=== PATIENT | female | born 1965 | race Caucasian/White ===

== ENCOUNTER 2016-05-16 06:03 | Emergency (ER) | payer OTHER ==
[~2016-05-16] VITALS: Ht 172.7 cm; Wt 85.8 kg
[~2016-05-16 06:03] MED LIST: HYDR25TA4 PO; LOSA1TAB PO
[2016-05-16 06:10] VITALS: TEMP 36.8; O2SAT 92; Ht 172.7 cm; Wt 85.8 kg
[2016-05-16] MEDS ORDERED: CZR50 PO (06:25)
[2016-05-16] MEDS ORDERED: HYDR25TA5 PO (06:25)
[2016-05-16] MEDS ORDERED: IPRA1AER2 PO (06:25)
[2016-05-16] MEDS ORDERED: SODIUM CHLORIDE 0.9% 1000ML 1,000 ML IV STA (06:40)
[2016-05-16] MEDS ORDERED: KETOROLAC TROMETHAMINE 30 MG/ML VIAL IV STA (06:40)
[2016-05-16] MEDS ORDERED: ONDANSETRON INJ 2 MG/ML 2 ML VIAL IV STA (06:40)
[2016-05-16] MEDS ORDERED: PROMETHAZINE HCL INJ 25 MG in SODIUM CHLORIDE 0.9% 50ML 50 ML IV STA (06:40)
--- NOTE | 2016-05-16 06:44 | EMERGENCY ROOM VISIT NOTE ---
History Report prepared by Octavia: Fritz Blackwood Under the Supervision of: Dr. Greer Montiel M.D. First contact with patient: 06:34 Chief Complaint: CHEST PAIN Stated Complaint: CHEST PAIN Nursing Triage Summary: arrived via amb with als. pt states hx of hiatal hernia has been having mid sternal cp fo days. pain worse with palpitation. History of Present Illness The patient is a 51 year old female with a history of hiatal hernia who presents to the Emergency Room with complaints of constant upper abdominal pain for the past week. The patient hasn't been taking anything for pain, and came to the ED this morning because she can no longer take the pain. The pain is rated 8/10 in severity. There are no worsening or relieving factors known to the patient. The patient denies melena or swelling of the lower extremities. The patient is a social drinker, and her last drink was yesterday. Source of History: patient Onset: one week Position: abdomen (upper) Symptom Intensity: 8/10 Timing: constant Modifying Factors (Worsening): other (none) Modifying Factors (Relieving): other (none) Associated Symptoms: No melena Review of Systems See HPI for pertinent positives & negatives. A total of 10 systems reviewed and were otherwise negative. Past Medical & Surgical Medical Problems: (1) Alcohol Abuse-Unspec (2) Anxiety State Nos (3) Asthma, Unspecified (4) Calculus Of Ureter (5) Diverticulosis Colon (W/O Ment Of Hemorrhage) (6) Hypothyroidism Nos (7) Lumbago (8) Migraine Unspecified W/O Intract Mgrn W/O Status Migrainosus Family History No significant family history Social History Smoking Status: Current Every Day Smoker Marital Status: single Occupation Status: employed Current/Historical Medications Scheduled Famotidine (Pepcid), 20 MG PO DAILY Hydrochlorothiazide (Hydrochlorothiazide), 25 MG PO DAILY Ipratropium-Albuterol (Combivent Respimat), 1 PUFF PO QID Losartan Potassium (Losartan Potassium), 50 MG PO DAILY Scheduled PRN Chlordiazepoxide (Librium), 25 MG PO TID PRN for anxiety Ondansetron Hcl (Zofran), 4 MG PO Q8H PRN for Nausea Allergies Coded Allergies: Penicillins (Verified Allergy, Intermediate, RASH/HIVES, 05/16/16) Sulfa Drugs (Verified Allergy, Intermediate, HIVES, 05/16/16) Codeine (Verified Allergy, Unknown, 05/16/16) Indomethacin (Verified Allergy, Unknown, 05/16/16) Iodine (Verified Allergy, Unknown, 05/16/16) [place] (Verified Allergy, Unknown, 05/16/16) Physical Exam Vital Signs Date Time Temp Pulse Resp B/P Pulse Ox O2 Delivery O2 Flow Rate FiO2 05/16/16 12:29 96 18 101/63 94 Room Air 05/16/16 10:55 100 18 123/77 94 Room Air 05/16/16 09:09 91 05/16/16 09:07 93 18 115/73 95 Room Air 05/16/16 07:09 102 18 125/83 94 Room Air 05/16/16 06:13 97 05/16/16 06:13 97 05/16/16 06:10 92 Room Air 05/16/16 06:10 36.8 95 22 109/77 92 Room Air Physical Exam CONSTITUTIONAL: Moderate painful distress. HEENT: No icterus, moist mucous membranes NECK: No meningismus, trachea is midline. CARDIOVASCULAR: Regular rate, normal perfusion RESPIRATORY: Unlabored breathing. Clear to auscultation. GASTROINTESTINAL: Moderate diffuse upper abdominal tenderness. GENITOURINARY: No flank tenderness MUSCULOSKELETAL: Full range of motion NEUROLOGIC: No acute gross focal deficits. PSYCHIATRIC: Normal affect SKIN: Normal for ethnicity. Medical Decision & Procedures ER Provider Diagnostic Interpretation: X-ray results as stated below per my interpretation and radiologist interpretation. Other radiology results as stated below per my review and radiologist interpretation. CHEST ONE VIEW PORTABLE CLINICAL HISTORY: epigastric pain COMPARISON STUDY: 06/19/2014 FINDINGS: The patient is hyperinflated. There is scattered calcified granulomas present. The heart is normal in size. There is no failure. There is no focal pulmonary consolidation. No pleural effusions are visualized.[ There is no free intraperitoneal air visualized. IMPRESSION: No active disease in the chest. Electronically signed by: Ramon Dominique M.D. 05/16/2016 7:06 AM Dictated Date/Time: 05/16/2016 7:05 AM BILIARY ULTRASOUND CLINICAL HISTORY: Epigastric pain and COMPARISON STUDY: 06/07/2015 FINDINGS: The liver is of increased echogenicity, nonspecific finding most often seen in hepatic steatosis. The common bile duct is dilated measuring 1 cm. The pancreas appears normal as visualized however the distal body and tail were poorly demonstrated. The pancreatic duct measures 3 mm. The gallbladder is surgically absent. There is no right-sided hydronephrosis. IMPRESSION: 1. Increased hepatic echogenicity, consistent with hepatic steatosis 2. Surgically absent gallbladder 3. Mild common bile duct dilatation (1 cm). Electronically signed by: Ramon Dominique M.D. 05/16/2016 7:43 AM Dictated Date/Time: 05/16/2016 7:41 AM ABDOMEN AND PELVIS CT WITH IV AND ORAL CONTRAST CT DOSE: 838.16 mGy.cm HISTORY: Epigastric pain. TECHNIQUE: Multiaxial CT images of the abdomen and pelvis were performed following the use of intravenous and oral contrast. COMPARISON STUDY: Abdomen and pelvis CT 04/12/2015. FINDINGS: Multiple punctate calcified granuloma seen within the lung bases. No pneumoperitoneum. No pneumatosis. No suspicious lytic or blastic osseous lesions. Severe hepatic steatosis. Stable 1.6 cm hyperdense lesion within the right hepatic lobe. Cholecystectomy. The common bile duct measures 9 mm in diameter. This is likely due to the patient's post sternotomy state. Questionable minimal fat stranding adjacent to the pancreatic head. Portal and splenic veins are patent. The spleen, adrenal glands, and kidneys are unremarkable. No retroperitoneal lymphadenopathy. No pelvic free fluid. The uterus is surgically absent. The bladder is unremarkable. Suggestion of a urethral diverticulum. No bowel obstruction. Submucosal fat deposition seen within the colon remains unchanged. A few colonic diverticula. Question mild thickening of the descending colon and sigmoid colon which is likely due to underdistention. This is similar to the prior study. IMPRESSION: 1. There may be minimal fat stranding at the pancreatic head. Recommend correlation with pancreatic enzymes to exclude a developing acute pancreatitis. 2. Severe hepatic steatosis, unchanged. 3. Question mild thickening of the sigmoid colon remains unchanged. Therefore, this may be due to underdistention. There is chronic submucosal fat deposition within the colon. 4. 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 5. No change in 1.6 cm hyperdense lesion within the right hepatic lobe. Electronically signed by: Hernandez Streeter M.D. 05/16/2016 10:03 AM Dictated Date/Time: 05/16/2016 9:46 AM Laboratory Results 05/16/16 05:43 Red Blood Count 4.25, Mean Corpuscular Volume 108.7, Mean Corpuscular Hemoglobin 39.3, Mean Corpuscular Hemoglobin Concent 36.1, Mean Platelet Volume 10.0, Neutrophils (%) (Auto) 42.3, Lymphocytes (%) (Auto) 41.3, Monocytes (%) ( Auto) 12.8, Eosinophils (%) (Auto) 1.6, Basophils (%) (Auto) 1.6, Neutrophils # (Auto) 2.11, Lymphocytes # (Auto) 2.06, Monocytes # (Auto) 0.64, Eosinophils # ( Auto) 0.08, Basophils # (Auto) 0.08 Test 05/16/16 05:43 05/16/16 06:52 05/16/16 08:05 White Blood Count 4.99 K/uL (4.8-10.8) Red Blood Count 4.25 M/uL (4.2-5.4) Hemoglobin 16.7 g/dL (12.0-16.0) Hematocrit 46.2 % (37-47) Mean Corpuscular Volume 108.7 fL (80-100) Mean Corpuscular Hemoglobin 39.3 pg (25-34) Mean Corpuscular Hemoglobin Concent 36.1 g/dl (32-36) Platelet Count 210 K/uL (130-400) Mean Platelet Volume 10.0 fL (7.4-10.4) Neutrophils (%) (Auto) 42.3 % Lymphocytes (%) (Auto) 41.3 % Monocytes (%) (Auto) 12.8 % Eosinophils (%) (Auto) 1.6 % Basophils (%) (Auto) 1.6 % Neutrophils # (Auto) 2.11 K/uL (1.4-6.5) Lymphocytes # (Auto) 2.06 K/uL (1.2-3.4) Monocytes # (Auto) 0.64 K/uL (0.11-0.59) Eosinophils # (Auto) 0.08 K/uL (0-0.5) Basophils # (Auto) 0.08 K/uL (0-0.2) RDW Standard Deviation 52.2 fL (36.4-46.3) RDW Coefficient of Variation 13.3 % (11.5-14.5) Immature Granulocyte % (Auto) 0.4 % Immature Granulocyte # (Auto) 0.02 K/uL (0.00-0.02) Prothrombin Time 10.1 SECONDS (9.0-12.0) Prothromb Time International Ratio 0.9 (0.9-1.1) Activated Partial Thromboplast Time 24.9 SECONDS (21.0-31.0) Partial Thromboplastin Ratio 1.0 Total Bilirubin 0.7 mg/dl (0.2-1) Direct Bilirubin 0.3 mg/dl (0-0.2) Aspartate Amino Transf (AST/SGOT) 328 U/L (15-37) Alanine Aminotransferase (ALT/SGPT) 163 U/L (12-78) Alkaline Phosphatase 113 U/L (45-117) Troponin I < 0.015 ng/ml (0-0.045) Total Protein 7.6 gm/dl (6.4-8.2) Albumin 4.2 gm/dl (3.4-5.0) Lipase 458 U/L (73-393) Ethyl Alcohol mg/dL 285.0 mg/dl (0-3) Urine Color DK YELLOW Urine Appearance CLEAR (CLEAR) Urine pH 5.5 (4.5-7.5) Urine Specific [place] 1.017 (1.000-1.030) Urine Protein TRACE (NEG) Urine Glucose (UA) NEG (NEG) Urine Ketones 1+ (NEG) Urine Occult Blood TRACE (NEG) Urine Nitrite NEG (NEG) Urine Bilirubin 1+ (NEG) Urine Urobilinogen NEG (NEG) Urine Leukocyte Esterase NEG (NEG) Urine WBC (Auto) 1-5 /hpf (0-5) Urine RBC (Auto) 0-4 /hpf (0-4) Urine Hyaline Casts (Auto) 5-10 /lpf (0-5) Urine Epithelial Cells (Auto) >30 /lpf (0-5) Urine Bacteria (Auto) NEG (NEG) Urine Opiates Screen POS (NEG) Urine Methadone, Qualitative NEG (NEG) Urine Barbiturates NEG (NEG) Urine Phencyclidine (PCP) Level NEG (NEG) Ur Amphetamine/Methamphetamine NEG (NEG) MDMA (Ecstasy) Screen NEG (NEG) Urine Benzodiazepines Screen NEG (NEG) Urine Cocaine Metabolite NEG (NEG) Urine Marijuana (THC) NEG (NEG) Labs reviewed by ED physician. Medications Administered Medications (Trade) Dose Ordered Sig/Razia Route Start Time Stop Time Status Last Admin Dose Admin Ondansetron HCl (Zofran Inj) 4 mg NOW STAT IV 05/16/16 06:40 05/16/16 06:44 DC 05/16/16 06:57 4 MG Ketorolac Tromethamine 15 mg 15 mg NOW STAT IV 05/16/16 06:40 05/16/16 06:45 DC 05/16/16 06:57 15 MG Sodium Chloride (Nss 1000ml) 1,000 ml @ 0 mls/hr Q0M STAT IV 05/16/16 06:40 05/16/16 06:45 DC 05/16/16 06:57 0 MLS/HR Morphine Sulfate 4 mg 4 mg ONE PRN IV 05/16/16 06:45 05/30/16 06:44 05/16/16 06:57 4 MG Promethazine HCl/ Sodium Chloride (Phenergan Inj/ Nss 50ml) 51 ml @ 204 mls/hr NOW STAT IV 05/16/16 06:40 05/16/16 06:54 DC 05/16/16 07:05 204 MLS/HR Diphenhydramine HCl (Benadryl Inj) 25 mg NOW STAT IV 05/16/16 09:11 05/16/16 09:12 DC 05/16/16 09:18 25 MG Prochlorperazine Edisylate (Compazine Inj) 10 mg NOW STAT IV 05/16/16 09:11 05/16/16 09:12 DC 05/16/16 09:18 10 MG ECG Indication: abdominal pain Rate (beats per minute): 98 Rhythm: sinus rhythm Findings: nonspecific-ST abn, no ectopy, other (normal axis) ED Course 0637: Past medical records reviewed. The patient was evaluated in room B12b. A complete history and physical examination was performed. 0640: NSS 1000 ml wide open, Toradol 15 mg IV, Zofran 4 mg IV. 0645: Morphine Sulfate 4 mg IV. 0911: Compazine 10 mg IV, Benadryl 25 mg IV. 1245: Upon reexamination the patient is sober enough for discharge. I discussed results and treatment plan with the patient. She verbalizes agreement and understanding. The patient is ready for discharge. Medical Decision Differential diagnosis: Pancreatitis, gallbladder disease, hiatal hernia. 51-year-old presents into the emergency department with several days of worsening epigastric discomfort for which she had been drinking alcohol. She was noted to have an alcohol level of 280 with mild to moderate epigastric discomfort and mildly elevated lipase. Mother arrives take patient home at 1 PM. Patient and mother clearly understands patient must stop drinking alcohol and avoid fatty foods for the next few days. She was provided benzodiazepine to take as needed Dr. silver as well as Pepcid and Zofran. She understands to follow-up with her primary doctor return for any worsening or worrisome symptoms. Mother "he understands patient is not medically clear until roughly 6 PM and is not to drive a motor vehicle or operate anything that may be dangerous. Patient declined case management her psychiatric facilitation of any rehabilitation. Patient mother had no further concerns prior to discharge. Impression Primary Impression: Alcohol intoxication Additional Impression: Pancreatitis Scribe Attestation The scribe's documentation has been prepared under my direction and personally reviewed by me in its entirety. I confirm that the note above accurately reflects all work, treatment, procedures, and medical decision making performed by me. Departure Information Dispostion Home / Self-Care Prescriptions Ondansetron Hcl (ZOFRAN) 4 Mg Tab 4 MG PO Q8H Y for Nausea, #20 TAB Prov: Greer Montiel MD 05/16/16 Chlordiazepoxide (Librium) 25 Mg Cap 25 MG PO TID Y for anxiety, #20 CAP Prov: Greer Montiel MD 05/16/16 Famotidine (PEPCID) 20 Mg Tab 20 MG PO DAILY, #30 TAB Prov: Greer Montiel MD 05/16/16 Referrals Rambo Camacho M.D. (PCP) Forms HOME CARE DOCUMENTATION FORM, IMPORTANT VISIT INFORMATION Patient Instructions Alcohol Abuse - [facility], [facility], Pancreatitis Acute Dc Problem Qualifiers
[2016-05-16] MEDS ORDERED: MoRPHine SULFATE 4 MG/ML 1 ML CARP\\VIAL IV PRN ×2 (06:45)
[2016-05-16 06:59] LABS: BASO % 1.6 %; BASO ABS # 0.08 K/uL (0-0.2); COMPLETE YES; EOS % 1.6 %; HEMATOCRIT 46.2 % (37-47); IG% 0.4 %; LYMPH % 41.3 %; LYMPH ABS # 2.06 K/uL (1.2-3.4); MEAN CELL VOLUME 108.7 fL (80-100); MEAN CORPUSCULAR HEMOGLOBIN 39.3 pg (25-34); MEAN CORPUSCULAR HGB CONC 36.1 g/dl (32-36); MONO % 12.8 %; NEUT % 42.3 %; PLATELET COUNT 210 K/uL (130-400); RED BLOOD COUNT 4.25 M/uL (4.2-5.4); WHITE BLOOD COUNT 4.99 K/uL (4.8-10.8)
[2016-05-16 07:06] LABS: INR 0.9 (0.9-1.1); PROTHROMBIN TIME (PATIENT) 10.1 SECONDS (9.0-12.0)
--- NOTE | 2016-05-16 07:08 | DIAGNOSTIC IMAGING REPORT ---
CHEST ONE VIEW PORTABLE CLINICAL HISTORY: epigastric pain COMPARISON STUDY: 06/19/2014 FINDINGS: The patient is hyperinflated. There is scattered calcified granulomas present. The heart is normal in size. There is no failure. There is no focal pulmonary consolidation. No pleural effusions are visualized.[ There is no free intraperitoneal air visualized. IMPRESSION: No active disease in the chest. Electronically signed by: Ramon Dominique M.D. 05/16/2016 7:06 AM Dictated Date/Time: 05/16/2016 7:05 AM
[2016-05-16 07:10] LABS: ALKALINE PHOSPHATASE 113 U/L (45-117); ALT/SGPT 163 U/L (12-78); AST/SGOT 328 U/L (15-37)
--- NOTE | 2016-05-16 07:45 | DIAGNOSTIC IMAGING REPORT ---
BILIARY ULTRASOUND CLINICAL HISTORY: Epigastric pain and COMPARISON STUDY: 06/07/2015 FINDINGS: The liver is of increased echogenicity, nonspecific finding most often seen in hepatic steatosis. The common bile duct is dilated measuring 1 cm. The pancreas appears normal as visualized however the distal body and tail were poorly demonstrated. The pancreatic duct measures 3 mm. The gallbladder is surgically absent. There is no right-sided hydronephrosis. IMPRESSION: 1. Increased hepatic echogenicity, consistent with hepatic steatosis 2. Surgically absent gallbladder 3. Mild common bile duct dilatation (1 cm). Electronically signed by: Ramon Dominique M.D. 05/16/2016 7:43 AM Dictated Date/Time: 05/16/2016 7:41 AM
[2016-05-16 08:36] LABS: URINE APPEARANCE CLEAR (CLEAR); URINE COLOR DK YELLOW; URINE EPITHELIAL CELL AUTO >30 /lpf (0-5); URINE NITRITE NEG (NEG); URINE PH 5.5 (4.5-7.5); URINE SPECIFIC GRAVITY 1.017 (1.000-1.030); UROBILINOGEN NEG (NEG); ZZUR CULT IF INDIC CLEAN CATCH NO
[2016-05-16 08:38] LABS: MANUAL MICROSCOPIC REQUIRED? NO; REVIEW REQ? NO; URINE BILIRUBIN 1+ (NEG)
[2016-05-16 09:03] LABS: BENZODIAZEPINE, URINE NEG (NEG); COCAINE,URINE NEG (NEG); PHENCYCLIDINE, URINE NEG (NEG)
[2016-05-16] MEDS ORDERED: PROCHLORPERAZINE 5 MG/ML 2 ML VIAL IV STA (09:11)
[2016-05-16] MEDS ORDERED: DiphenhydrAMINE HCL 50 MG/ML VIAL IV STA (09:11)
--- NOTE | 2016-05-16 10:05 | DIAGNOSTIC IMAGING REPORT ---
ABDOMEN AND PELVIS CT WITH IV AND ORAL CONTRAST CT DOSE: 838.16 mGy.cm HISTORY: Epigastric pain. TECHNIQUE: Multiaxial CT images of the abdomen and pelvis were performed following the use of intravenous and oral contrast. COMPARISON STUDY: Abdomen and pelvis CT 04/12/2015. FINDINGS: Multiple punctate calcified granuloma seen within the lung bases. No pneumoperitoneum. No pneumatosis. No suspicious lytic or blastic osseous lesions. Severe hepatic steatosis. Stable 1.6 cm hyperdense lesion within the right hepatic lobe. Cholecystectomy. The common bile duct measures 9 mm in diameter. This is likely due to the patient's post sternotomy state. Questionable minimal fat stranding adjacent to the pancreatic head. Portal and splenic veins are patent. The spleen, adrenal glands, and kidneys are unremarkable. No retroperitoneal lymphadenopathy. No pelvic free fluid. The uterus is surgically absent. The bladder is unremarkable. Suggestion of a urethral diverticulum. No bowel obstruction. Submucosal fat deposition seen within the colon remains unchanged. A few colonic diverticula. Question mild thickening of the descending colon and sigmoid colon which is likely due to underdistention. This is similar to the prior study. IMPRESSION: 1. There may be minimal fat stranding at the pancreatic head. Recommend correlation with pancreatic enzymes to exclude a developing acute pancreatitis. 2. Severe hepatic steatosis, unchanged. 3. Question mild thickening of the sigmoid colon remains unchanged. Therefore, this may be due to underdistention. There is chronic submucosal fat deposition within the colon. 4. 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 5. No change in 1.6 cm hyperdense lesion within the right hepatic lobe. Electronically signed by: Hernandez Streeter M.D. 05/16/2016 10:03 AM Dictated Date/Time: 05/16/2016 9:46 AM
[2016-05-16 12:29] VITALS: BP 101/63; PULSE 96; O2SAT 94
[2016-05-16] MEDS ORDERED: FAMO20TA9 PO (12:45)
[2016-05-16] MEDS ORDERED: CHLO25CA10 PO (12:46)
[2016-05-16] MEDS ORDERED: ONDA4TAB46 PO (12:47)
[2016-05-18 15:37] LABS: COD UR NEGATIVE NG/ML (CUTOFF=50); HYDROCOD UR NEGATIVE NG/ML (CUTOFF=50); HYDROMOR UR NEGATIVE NG/ML (CUTOFF=50); MORPHINE UR 12900 NG/ML (CUTOFF=50); NORHYDROCODONE CONF UR NEGATIVE NG/ML (CUTOFF=50); OXYMORPH UR NEGATIVE NG/ML (CUTOFF=50)
[2016-06-29] MEDS ORDERED: OXYC1TAB3 PO (09:07)
[2016-06-29] MEDS ORDERED: EFFSR75 PO (09:09)
[2016-10-13] MEDS ORDERED: FLV1 PO (11:47)
[2016-10-13] MEDS ORDERED: CHLO25CA10 PO (11:47)
[2016-10-13] MEDS ORDERED: THM100 PO (11:47)
[2016-10-13] MEDS ORDERED: VANC1CAP19 PO (11:47)
[2016-10-13] MEDS ORDERED: ZNCS220 PO (11:47)
[2016-10-13] MEDS ORDERED: MULT-589 PO (11:47)
[2016-10-13] MEDS ORDERED: ULT50X PO (11:47)
[2016-10-13] MEDS ORDERED: RANI150T3 PO (11:47)
[2016-10-13] MEDS ORDERED: LPR25 PO (11:47)
== END 2016-05-16 12:55 | disposition home or self-care (01) ==
LOC: EDBD 06:03 → C.EDB 06:04
DX: F10.129 Alcohol abuse with intoxication, unspecified (principal); Y90.8 Blood alcohol level of 240 mg/100 ml or more; K86.1 Other chronic pancreatitis; E03.9 Hypothyroidism, unspecified; J45.909 Unspecified asthma, uncomplicated; F41.9 Anxiety disorder, unspecified; K57.31 Diverticulosis of large intestine without perforation or abscess with bleeding; Z87.442 Personal history of urinary calculi; F17.200 Nicotine dependence, unspecified, uncomplicated; Z79.899 Other long term (current) drug therapy; Z88.0 Allergy status to penicillin; Z88.2 Allergy status to sulfonamides; Z88.5 Allergy status to narcotic agent; Z88.8 Allergy status to other drugs, medicaments and biological substances; Z91.018 Allergy to other foods; Z91.041 Radiographic dye allergy status

== ENCOUNTER → 2016-05-17 | Outpatient (CLI) | payer OTHER ==
[~2016-05-17] MED LIST changes: +ATV/1 PO; +CHLO25CA10 PO; +CRFUDL PO; +CZR50 PO; +EFFSR75 PO; +FAMO20TA9 PO; +FLV1 PO; -HYDR25TA4 PO; +HYDR25TA5 PO; +IPRA1AER2 PO; -LOSA1TAB PO; +LPR25 PO; +METR-163 PO; +MULT-589 PO; +ONDA4TAB46 PO; +ONDA4TAB65 PO; +OXYC1TAB3 PO; +PRT40 PO; +RANI150T3 PO; +THM100 PO; +ULT50X PO; +VANC1CAP19 PO; +ZNCS220 PO
--- NOTE | 2016-05-17 14:02 | DIAGNOSTIC IMAGING REPORT ---
CHEST 2 VIEWS ROUTINE HISTORY: WHEEZING COMPARISON: Chest 05/16/2016. FINDINGS: The lungs remain hyperexpanded. Multiple calcified granulomas are unchanged. No new focal lung consolidations to suggest pneumonia. No evidence for pulmonary edema. No pleural effusions. No pneumothorax. The heart is normal in size. IMPRESSION: No significant change compared to the prior study. No acute process. Electronically signed by: Hernandez Streeter M.D. 05/17/2016 2:00 PM Dictated Date/Time: 05/17/2016 1:59 PM
== END | disposition home or self-care (01) ==
LOC: C.RAD1850 13:50
PROVIDERS: ATTEND Family Medicine
DX: R06.2 Wheezing (principal); R53.1 Weakness; Z72.0 Tobacco use

== ENCOUNTER 2016-06-21 15:09 | Inpatient (IN) | payer OTHER ==
[~2016-06-21] VITALS: Ht 172.7 cm; Wt 83.9 kg
[~2016-06-21 15:09] MED LIST changes: -ATV/1 PO; -CRFUDL PO; -EFFSR75 PO; -FAMO20TA9 PO; -FLV1 PO; -LPR25 PO; -METR-163 PO; -MULT-589 PO; -ONDA4TAB65 PO; -OXYC1TAB3 PO; -PRT40 PO; -RANI150T3 PO; -THM100 PO; -ULT50X PO; -VANC1CAP19 PO; -ZNCS220 PO
[2016-06-21] MEDS ORDERED: SODIUM CHLORIDE 0.9% 1000ML 1,000 ML IV STA ×2 (16:52→19:43)
[2016-06-21] MEDS ORDERED: ONDANSETRON 8 MG/54 ML D5W IV STA (17:08)
[2016-06-21] MEDS ORDERED: DICYCLOMINE HCL 10 MG/ML 2 ML AMP IM ONE (17:15)
[2016-06-21] MEDS ORDERED: FAMOTIDINE 20MG/102 ML D5W IV STA (17:15)
[2016-06-21 17:20] LABS: BASO % 0.9 %; BASO ABS # 0.05 K/uL (0-0.2); COMPLETE YES; EOS % 0.9 %; HEMATOCRIT 40.5 % (37-47); IG% 1.8 %; LYMPH % 22.6 %; LYMPH ABS # 1.24 K/uL (1.2-3.4); MEAN CORPUSCULAR HEMOGLOBIN 39.5 pg (25-34); MEAN CORPUSCULAR HGB CONC 36.5 g/dl (32-36); MEAN PLATELET VOLUME 10.3 fL (7.4-10.4); MONO % 19.7 %; NEUT % 54.1 %; PLATELET COUNT 180 K/uL (130-400); RED BLOOD COUNT 3.75 M/uL (4.2-5.4); WHITE BLOOD COUNT 5.48 K/uL (4.8-10.8)
[2016-06-21 17:39] LABS: ALT/SGPT 78 U/L (12-78); AMYLASE 62 U/L (25-115); BLOOD UREA NITROGEN 10 mg/dl (7-18); BUN/CREATININE RATIO 11.8 (10-20); CALCIUM 8.9 mg/dl (8.5-10.1); CARBON DIOXIDE 29 mmol/L (21-32); CHLORIDE 95 mmol/L (98-107); CREATININE 0.82 mg/dl (0.60-1.20); GLUCOSE 124 mg/dl (70-99); POTASSIUM 2.8 mmol/L (3.5-5.1); SODIUM 136 mmol/L (136-145)
[2016-06-21 17:44] LABS: ALB/GLOB RATIO 1.1 (0.9-2); ALKALINE PHOSPHATASE 140 U/L (45-117); AST/SGOT 83 U/L (15-37)
[2016-06-21] MEDS ORDERED: HYDROmorphone INJ 0.5 MG/0.5 ML SYR IV STA (17:58)
--- NOTE | 2016-06-21 19:09 | DIAGNOSTIC IMAGING REPORT ---
CT OF THE ABDOMEN AND PELVIS WITHOUT CONTRAST CLINICAL HISTORY: Upper abdominal pain. History of pancreatitis. COMPARISON STUDY: CT of the abdomen and pelvis May 16, 2016. TECHNIQUE: Axial images of the abdomen and pelvis were obtained without IV contrast. Images were reviewed in the axial, sagittal, and coronal planes. FINDINGS: Visualized portions of the lung lower lungs demonstrate stable calcified and noncalcified pulmonary nodules. There is fatty infiltration of the liver. A 2 cm hypodense right hepatic lobe lesion is unchanged since prior exams. The likely reflects a hemangioma. Stability indicates a benign lesion. Unenhanced images of the spleen, adrenal glands and kidneys are unremarkable. There is no hydronephrosis or hydroureter. There may be mild peripancreatic infiltration. There is mild dilatation of the common bile duct. This is unchanged and may be due to cholecystectomy. There is no evidence for a bowel obstruction. No free air, pneumatosis or portal venous gas is present. There is sigmoid diverticulosis without evidence for acute diverticulitis. Skeletal structures are unremarkable. IMPRESSION: 1. Suspected minimal peripancreatic infiltration. This suggests acute pancreatitis. 2. Fatty liver. 3. Mild biliary ductal dilatation. This is likely related to prior cholecystectomy but could be correlated with liver function tests. Electronically signed by: Vick Mcginnis M.D. 06/21/2016 7:07 PM Dictated Date/Time: 06/21/2016 6:56 PM
[2016-06-21] MEDS ORDERED: HYDROmorphone INJ 1 MG/ML SYR IV PRN (19:45)
[2016-06-21 19:51] LABS: URINE APPEARANCE CLOUDY (CLEAR); URINE BILIRUBIN NEG (NEG); URINE COLOR DK YELLOW; URINE EPITHELIAL CELL AUTO >30 /lpf (0-5); URINE NITRITE NEG (NEG); URINE PH 6.5 (4.5-7.5); URINE SPECIFIC GRAVITY 1.007 (1.000-1.030); UROBILINOGEN NEG (NEG); ZZUR CULT IF INDIC CLEAN CATCH YES
[2016-06-21 19:54] LABS: MANUAL MICROSCOPIC REQUIRED? NO; REVIEW REQ? YES
--- NOTE | 2016-06-21 20:32 | History and Physical ---
History & Physical Date & Time of Service: Jun 21, 2016 at 20:26 Chief Complaint: Referred By Doctor's Office Primary Care Physician: Jeb Burgess MD History of Present Illness Source: patient 51 y/o F w/Hx HTN, previous episode of ETOH-related pancreatitis. Presents with abdominal pain, N/V. Denies fevers CP. She has chronic diarrhea related to IBS but this has not worsened. Pain, N/V began 1 week prior and has become gradually more severe. The pt claims she has not had solid food in [address] reveals pancreatic inflammation. Labs are notable for an elevated lipase and hypokalemia. The pt state she has not had ETOH since a diagnosis of pancreatitis one month earlier and has not suffered withdrawal. Past Medical/Surgical History 1) ETOH abuse 2) ETOH pancreatitis 3) HTN 4) Tobacco abuse 5) Cholecystectomy Family History No significant family history Father COPD Social History Smokes 1/2 (recently down from 1-2 packs) - states that she quit drinking one month prior but does have a history of excessive consumption Smoking Status: Current Every Day Smoker Marital Status: single Housing status: other Occupational Status: employed Immunizations History of Influenza Vaccine: No History of Tetanus Vaccine?: Yes History of Pneumococcal: No History of Hepatitis B Vaccine: No Hepatitis Immunization Date: Feb 06, 1990 Multi-Drug Resistant Organisms History of MDRO: No Allergies Coded Allergies: Penicillins (Verified Allergy, Intermediate, RASH/HIVES, 06/21/16) Sulfa Drugs (Verified Allergy, Intermediate, HIVES, 06/21/16) Codeine (Verified Allergy, Unknown, 06/21/16) Indomethacin (Verified Allergy, Unknown, 06/21/16) Iodine (Verified Allergy, Unknown, 06/21/16) [place] (Verified Allergy, Unknown, 06/21/16) Home Medications Scheduled Hydrochlorothiazide (Hydrochlorothiazide), 25 MG PO DAILY Ipratropium-Albuterol (Combivent Respimat), 1 PUFF PO QID Losartan Potassium (Losartan Potassium), 50 MG PO DAILY Scheduled PRN Chlordiazepoxide (Librium), 25 MG PO TID PRN for anxiety Ondansetron Hcl (Zofran), 4 MG PO Q8H PRN for Nausea Review of Systems Constitutional: No chills, No fever, No sweats Eyes: No eye pain, No worsening of vision ENT: No hearing loss, No nasal symptoms, No unusual epistaxis Respiratory: No cough, No sputum, No wheezing Cardiovascular: No PND, No chest pain, No orthopnea Abdomen: + diarrhea (chronic), + nausea, + pain, + vomiting Musculoskeletal: No joint pain, No muscle pain Genitourinary - Female: No dysuria, No urinary frequency, No urinary urgency Neurologic: No memory loss, No paralysis, No weakness Psychiatric: No depression symptoms Endocrine: No fatigue Hematologic / Lymphatic: No abnormal bleeding/bruising Integumentary: No rash Allergic / Immunologic: No environmental allergies Physical Exam Vital Signs Date Time Temp Pulse Resp B/P Pulse Ox O2 Delivery O2 Flow Rate FiO2 06/21/16 19:36 85 20 127/86 98 Room Air 06/21/16 18:50 88 20 138/81 97 Room Air 06/21/16 17:20 92 18 137/85 98 Room Air 06/21/16 15:22 37.4 108 18 137/97 98 Room Air General Appearance: WD/WN, no apparent distress Head: normocephalic, + pertinent finding (Bruising under R eye) Eyes: normal inspection, PERRL, EOMI ENT: normal ENT inspection, pharynx normal Neck: supple, no JVD Respiratory/Chest: chest non-tender, lungs clear, normal breath sounds, no respiratory distress, no accessory muscle use Cardiovascular: regular rate, rhythm, no edema, no gallop Abdomen/GI: normal bowel sounds, soft, + tenderness (mild diffuse) Back: normal inspection, no CVA tenderness, no muscle spasm, normal range of motion Extremities/Musculoskelatal: normal inspection, no calf tenderness, normal capillary refill, no pedal edema, normal range of motion, + pertinent finding ( Bruising on R arm and L leg) Neurologic/Psych: gypsum calciner II-XII nml as tested, no motor/sensory deficits, alert, normal mood/affect, normal reflexes, + abnormal cerebellar tests Skin: normal color, warm/dry, no rash, + pertinent finding (Bruising as noted above) Diagnostics Laboratory Results Results Past 24 Hours Test 06/21/16 17:04 06/21/16 19:34 Range/Units White Blood Count 5.48 4.8-10.8 K/uL Red Blood Count 3.75 4.2-5.4 M/uL Hemoglobin 14.8 12.0-16.0 g/dL Hematocrit 40.5 37-47 % Mean Corpuscular Volume 108.0 80-100 fL Mean Corpuscular Hemoglobin 39.5 25-34 pg Mean Corpuscular Hemoglobin Concent 36.5 32-36 g/dl Platelet Count 180 130-400 K/uL Mean Platelet Volume 10.3 7.4-10.4 fL Neutrophils (%) (Auto) 54.1 % Lymphocytes (%) (Auto) 22.6 % Monocytes (%) (Auto) 19.7 % Eosinophils (%) (Auto) 0.9 % Basophils (%) (Auto) 0.9 % Neutrophils # (Auto) 2.96 1.4-6.5 K/uL Lymphocytes # (Auto) 1.24 1.2-3.4 K/uL Monocytes # (Auto) 1.08 0.11-0.59 K/uL Eosinophils # (Auto) 0.05 0-0.5 K/uL Basophils # (Auto) 0.05 0-0.2 K/uL RDW Standard Deviation 56.8 36.4-46.3 fL RDW Coefficient of Variation 14.2 11.5-14.5 % Immature Granulocyte % (Auto) 1.8 % Immature Granulocyte # (Auto) 0.10 0.00-0.02 K/uL Sodium Level 136 136-145 mmol/L Potassium Level 2.8 3.5-5.1 mmol/L Chloride Level 95 98-107 mmol/L Carbon Dioxide Level 29 21-32 mmol/L Anion Gap 12.0 3-11 mmol/L Blood Urea Nitrogen 10 7-18 mg/dl Creatinine 0.82 0.60-1.20 mg/dl Est Creatinine Clear Calc Drug Dose 92.1 ml/min Estimated GFR () 96.0 Estimated GFR (Non- 82.9 BUN/Creatinine Ratio 11.8 10-20 Random Glucose 124 70-99 mg/dl Calcium Level 8.9 8.5-10.1 mg/dl Total Bilirubin 0.8 0.2-1 mg/dl Aspartate Amino Transf (AST/SGOT) 83 15-37 U/L Alanine Aminotransferase (ALT/SGPT) 78 12-78 U/L Alkaline Phosphatase 140 45-117 U/L Troponin I < 0.015 0-0.045 ng/ml Total Protein 6.8 6.4-8.2 gm/dl Albumin 3.5 3.4-5.0 gm/dl Globulin 3.3 2.5-4.0 gm/dl Albumin/Globulin Ratio 1.1 0.9-2 Amylase Level 62 25-115 U/L Lipase 745 73-393 U/L Urine Color DK YELLOW Urine Appearance CLOUDY CLEAR Urine pH 6.5 4.5-7.5 Urine Specific [place] 1.007 1.000-1.030 Urine Protein NEG NEG Urine Glucose (UA) NEG NEG Urine Ketones TRACE NEG Urine Occult Blood NEG NEG Urine Nitrite NEG NEG Urine Bilirubin NEG NEG Urine Urobilinogen NEG NEG Urine Leukocyte Esterase NEG NEG Urine WBC (Auto) 1-5 0-5 /hpf Urine RBC (Auto) 0-4 0-4 /hpf Urine Hyaline Casts (Auto) 1-5 0-5 /lpf Urine Epithelial Cells (Auto) >30 0-5 /lpf Urine Bacteria (Auto) 2+ NEG Microbiology Results 06/21/16 Urine Culture, Received Pending Diagnostic Radiology 1. Suspected minimal peripancreatic infiltration. This suggests acute pancreatitis. 2. Fatty liver. 3. Mild biliary ductal dilatation. This is likely related to prior cholecystectomy but could be correlated with liver function tests. Impression Assessment and Plan 51 y/o F w/Hx HTN, previous episode of ETOH-related pancreatitis. Presents with abdominal pain, N/V. Denies fevers CP. She has chronic diarrhea related to IBS but this has not worsened. Pain, N/V began 1 week prior and has become gradually more severe. The pt claims she has not had solid food in [address] reveals pancreatic inflammation. Labs are notable for an elevated lipase and hypokalemia. The pt state she has not had ETOH since a diagnosis of pancreatitis one month earlier and has not suffered withdrawal. 1) Pancreatitis - IVF, NPO - pain control and antiemetics as needed 2) Hypok - replaced - repeat BMP pending 3) Tobacco abuse - advised on cessation - she has cut down with intent of quitting 4) ETOH abuse - will provide daily thiamine and folate in addition to Ativan - pt denies recent use or withdrawal but appears to have mild b/l tremors 5) HTN - Cont Lisinopril 6) Pt has some concerning bruises including uunder her R eye - states she lives alone and denies abuse - states that this was the result of a fall Full code - heparin prophylaxis Total time for this admit including review of labs, records, meds, imaging - discussion with pt and ER MD - 35 min Level of Care Med/Surg Resuscitation Status FULL RESUSCITATION VTE Prophylaxis Given or contraindicated: Unfractionated heparin SQ
[2016-06-21] MEDS ORDERED: POLYETHYLENE (MIRALAX) 17 GM PACK PO PRN (20:45)
[2016-06-21] MEDS ORDERED: MAGNESIUM HYDROXIDE SUSP 30 ML UDC PO PRN (20:45)
[2016-06-21] MEDS ORDERED: ACETAMINOPHEN 325 MG TAB PO PRN (20:45)
[2016-06-21] MEDS ORDERED: CHLORDIAZEPOXIDE 25 MG CAP PO PRN (20:45)
[2016-06-21] MEDS ORDERED: ALUMINUM/MAGNESIUM/SIMETH (MAALOX MAX) 30 ML UDC PO PRN (20:45)
[2016-06-21 21:06] VITALS: Ht 172.7 cm; Wt 83.9 kg
[2016-06-21] MEDS ORDERED: LORAZEPAM 2 MG/ML 1 ML VIAL IV PRN (21:15)
--- NOTE | 2016-06-21 21:29 | EMERGENCY ROOM VISIT NOTE ---
History Report prepared by Octavia: Rashida Felix Under the Supervision of: Dr. Lyle Mcqueen M.D. First contact with patient: 16:52 Chief Complaint: REFERRED BY DOCTOR Stated Complaint: REFERRED BY DOCTOR'S OFFICE History of Present Illness The patient is a 51 year old female who presents to the Emergency Room with complaints of a referral by her PCP that occurred [place] [place]. She rates her discomfort as an 8/10 in severity. The patient was not seen by her PCP, but he told her to come in because he thinks that she is having a flare-up of pancreatitis. The patient states that she is experiencing epigastric and upper abdominal pain along with nausea and vomiting. The abdominal pain intermittently radiates into her back. These symptoms started 9 days ago and she states that she has not been able to keep anything down besides small sips of Gatorade. Her symptoms feel similar to when she experienced pancreatitis in the past. The patient states that she always experiences diarrhea from IBS, but lately her stools have been more watery with intermittent black chunks in it. She states that she has been experiencing generalized weakness secondary to not being able to eat. Pt denies LOC, headache, fevers, chills, diaphoresis, visual changes, neck pain , chest pain, breathing difficulties, hematochezia, urinary symptoms, numbness, lymphadenopathy, rash, or other complaints. Her most recent flare-up of pancreatitis was in April and she was treated in the ED. She states that she occasionally experienced GERD-like symptoms. The patient denies recent alcohol use. She states that her most recent alcohol consumption was prior to her flare- up of pancreatitis in April. Source of History: patient Onset: [place] Position: abdomen Symptom Intensity: 8/10 Quality: other (referral by PCP) Associated Symptoms: + abdominal pain (epigastric, upper), + back pain, + diarrhea (with intermittent black chunks), + nausea, + vomiting, + weakness Review of Systems See HPI for pertinent positives and negatives. A total of ten systems were reviewed and were otherwise negative. Past Medical & Surgical Medical Problems: (1) Alcohol Abuse-Unspec (2) Anxiety State Nos (3) Asthma, Unspecified (4) Calculus Of Ureter (5) Diverticulosis Colon (W/O Ment Of Hemorrhage) (6) Hypokalemia (7) Hypothyroidism Nos (8) Lumbago (9) Migraine Unspecified W/O Intract Mgrn W/O Status Migrainosus (10) Pancreatitis, acute Surgical Problems: (1) History of cholecystectomy Family History No significant family history Social History Smoking Status: Current Every Day Smoker Marital Status: single Occupation Status: employed Current/Historical Medications Scheduled Hydrochlorothiazide (Hydrochlorothiazide), 25 MG PO DAILY Ipratropium-Albuterol (Combivent Respimat), 1 PUFF PO QID Losartan Potassium (Losartan Potassium), 50 MG PO DAILY Scheduled PRN Chlordiazepoxide (Librium), 25 MG PO TID PRN for anxiety Ondansetron Hcl (Zofran), 4 MG PO Q8H PRN for Nausea Allergies Coded Allergies: Penicillins (Verified Allergy, Intermediate, RASH/HIVES, 06/21/16) Sulfa Antibiotics (Verified Allergy, Intermediate, HIVES, 06/21/16) Codeine (Verified Allergy, Unknown, 06/21/16) Indomethacin (Verified Allergy, Unknown, 06/21/16) Iodine (Verified Allergy, Unknown, 06/21/16) [place] (Verified Allergy, Unknown, 06/21/16) Physical Exam Vital Signs Date Time Temp Pulse Resp B/P Pulse Ox O2 Delivery O2 Flow Rate FiO2 06/21/16 21:06 Room Air 06/21/16 19:36 85 20 127/86 98 Room Air 06/21/16 18:50 88 20 138/81 97 Room Air 06/21/16 17:20 92 18 137/85 98 Room Air 06/21/16 15:22 37.4 108 18 137/97 98 Room Air Physical Exam GENERAL: Awake, alert, uncomfortable-appearing, in no distress HENT: Normocephalic, atraumatic. Oropharynx unremarkable. EYES: Normal conjunctiva. Sclera non-icteric. NECK: Supple. No nuchal rigidity. FROM. No JVD. RESPIRATORY: Clear to auscultation. CARDIAC: Regular rate, normal rhythm. Extremities warm and well perfused. Pulses equal. ABDOMEN: Soft, mildly distended. Epigastric tenderness to palpation. No rebound or guarding. No masses. RECTAL: Deferred. MUSCULOSKELETAL: Chest examination reveals no tenderness. The back is symmetrical on inspection without obvious abnormality. There is no CVA tenderness to palpation. No joint edema. LOWER EXTREMITIES: Calves are equal size bilaterally and non-tender. No edema. No discoloration. NEURO: Normal sensorium. No sensory or motor deficits noted. SKIN: No rash or jaundice noted. Medical Decision & Procedures ER Provider Diagnostic Interpretation: CT results as stated below per my review and radiologist interpretation CT OF THE ABDOMEN AND PELVIS WITHOUT CONTRAST IMPRESSION: 1. Suspected minimal peripancreatic infiltration. This suggests acute pancreatitis. 2. Fatty liver. 3. Mild biliary ductal dilatation. This is likely related to prior cholecystectomy but could be correlated with liver function tests. Electronically signed by: Vick Mcginnis M.D. 06/21/2016 7:07 PM Dictated Date/Time: 06/21/2016 6:56 PM Laboratory Results 06/21/16 17:04 Red Blood Count 3.75, Mean Corpuscular Volume 108.0, Mean Corpuscular Hemoglobin 39.5, Mean Corpuscular Hemoglobin Concent 36.5, Mean Platelet Volume 10.3, Neutrophils (%) (Auto) 54.1, Lymphocytes (%) (Auto) 22.6, Monocytes (%) ( Auto) 19.7, Eosinophils (%) (Auto) 0.9, Basophils (%) (Auto) 0.9, Neutrophils # (Auto) 2.96, Lymphocytes # (Auto) 1.24, Monocytes # (Auto) 1.08, Eosinophils # ( Auto) 0.05, Basophils # (Auto) 0.05 06/21/16 17:04 Test 06/21/16 17:04 06/21/16 19:34 White Blood Count 5.48 K/uL (4.8-10.8) Red Blood Count 3.75 M/uL (4.2-5.4) Hemoglobin 14.8 g/dL (12.0-16.0) Hematocrit 40.5 % (37-47) Mean Corpuscular Volume 108.0 fL (80-100) Mean Corpuscular Hemoglobin 39.5 pg (25-34) Mean Corpuscular Hemoglobin Concent 36.5 g/dl (32-36) Platelet Count 180 K/uL (130-400) Mean Platelet Volume 10.3 fL (7.4-10.4) Neutrophils (%) (Auto) 54.1 % Lymphocytes (%) (Auto) 22.6 % Monocytes (%) (Auto) 19.7 % Eosinophils (%) (Auto) 0.9 % Basophils (%) (Auto) 0.9 % Neutrophils # (Auto) 2.96 K/uL (1.4-6.5) Lymphocytes # (Auto) 1.24 K/uL (1.2-3.4) Monocytes # (Auto) 1.08 K/uL (0.11-0.59) Eosinophils # (Auto) 0.05 K/uL (0-0.5) Basophils # (Auto) 0.05 K/uL (0-0.2) RDW Standard Deviation 56.8 fL (36.4-46.3) RDW Coefficient of Variation 14.2 % (11.5-14.5) Immature Granulocyte % (Auto) 1.8 % Immature Granulocyte # (Auto) 0.10 K/uL (0.00-0.02) Anion Gap 12.0 mmol/L (3-11) Est Creatinine Clear Calc Drug Dose 92.1 ml/min Estimated GFR () 96.0 Estimated GFR (Non- 82.9 BUN/Creatinine Ratio 11.8 (10-20) Calcium Level 8.9 mg/dl (8.5-10.1) Total Bilirubin 0.8 mg/dl (0.2-1) Aspartate Amino Transf (AST/SGOT) 83 U/L (15-37) Alanine Aminotransferase (ALT/SGPT) 78 U/L (12-78) Alkaline Phosphatase 140 U/L (45-117) Troponin I < 0.015 ng/ml (0-0.045) Total Protein 6.8 gm/dl (6.4-8.2) Albumin 3.5 gm/dl (3.4-5.0) Globulin 3.3 gm/dl (2.5-4.0) Albumin/Globulin Ratio 1.1 (0.9-2) Amylase Level 62 U/L (25-115) Lipase 745 U/L (73-393) Urine Color DK YELLOW Urine Appearance CLOUDY (CLEAR) Urine pH 6.5 (4.5-7.5) Urine Specific [place] 1.007 (1.000-1.030) Urine Protein NEG (NEG) Urine Glucose (UA) NEG (NEG) Urine Ketones TRACE (NEG) Urine Occult Blood NEG (NEG) Urine Nitrite NEG (NEG) Urine Bilirubin NEG (NEG) Urine Urobilinogen NEG (NEG) Urine Leukocyte Esterase NEG (NEG) Urine WBC (Auto) 1-5 /hpf (0-5) Urine RBC (Auto) 0-4 /hpf (0-4) Urine Hyaline Casts (Auto) 1-5 /lpf (0-5) Urine Epithelial Cells (Auto) >30 /lpf (0-5) Urine Bacteria (Auto) 2+ (NEG) Laboratory results reviewed by me Medications Administered Medications (Trade) Dose Ordered Sig/Razia Route Start Time Stop Time Status Last Admin Dose Admin Sodium Chloride (Nss 1000ml) 1,000 ml @ 999 mls/hr Q1H1M STAT IV 06/21/16 16:52 06/21/16 17:52 DC 06/21/16 16:59 999 MLS/HR Ondansetron HCl (Zofran 8mg Iv) 8 mg NOW STAT IV 06/21/16 17:08 06/21/16 17:10 DC 06/21/16 17:27 8 MG Dicyclomine HCl (Bentyl Inj) 20 mg NOW ONCE IM 06/21/16 17:15 06/21/16 17:16 DC 06/21/16 17:27 20 MG Famotidine (Pepcid 20mg/100 ml) 20 mg ONE STAT IV 06/21/16 17:15 06/21/16 17:16 DC 06/21/16 17:27 20 MG Hydromorphone HCl (Dilaudid Inj) 0.5 mg NOW STAT IV 06/21/16 17:58 06/21/16 17:59 DC 06/21/16 18:05 0.5 MG Hydromorphone HCl 1 mg 1 mg Q15M PRN IV 06/21/16 19:45 07/05/16 19:44 06/21/16 19:53 1 MG Sodium Chloride (Nss 1000ml) 1,000 ml @ 999 mls/hr Q1H1M STAT IV 06/21/16 19:43 06/21/16 20:43 DC 06/21/16 19:52 999 MLS/HR ECG Indication: abdominal pain, back/shoulder pain Rate (beats per minute): 89 Rhythm: normal sinus Findings: nonspecific-ST abn, no acute ischemic change, prolonged QT, no ectopy ED Course 1652: Ordered Sodium Chloride 1000 ml @ 999 mls/hr IV 1703: The patient was evaluated in room B6. A complete history and physical exam was performed. 1708: Ordered Ondansetron HCl 8 mg IV 171: Ordered Famotidine 20 mg IV, Dicyclomine HCl 20 mg IM 1757: Ordered Dilaudid Inj 0.5 mg IV 1942: Ordered Sodium Chloride 1000 ml @ 999 mls/hr IV 1944: Ordered Dilaudid Inj 1 mg IV 1946: Upon reexamination, the patient was resting comfortably. I discussed the test results and treatment plan with her. The patient will be evaluated for further management. 2014: Discussed the patient's case with Dr. Nuvia REGALADO The patient will be evaluated for further treatment and disposition. Medical Decision Triage Nursing notes reviewed. The patient's presentation and history were concerning for abdominal pain. Etiologies such as appendicitis, diverticulitis, obstruction, inflammatory bowel disease, renal colic, PUD, biliary pathology, pancreatitis, mesenteric ischemia, aortic pathology, infections, genitourinary, UTI, perforated viscus, as well as others were entertained. Patient was evaluated. She was tender in the abdomen. She was hydrated. She was given Zofran. She was given Pepcid, and Bentyl. The patient had increasing pain. She was given IV Dilaudid. She went for CT imaging. Her CBC urinalysis, chemistry panel and LFTs were unremarkable except for an elevated MCV, low potassium, and AST. Lipase was moderately elevated at 745. CT imaging revealed pancreatitis. The patient was informed of the findings. Additional fluids and Dilaudid given. Internal medicine was consulted. The patient was evaluated in the Emergency Room for further management. The chart was completed utilizing [employer] voice recognition software. Grammatical errors, random word insertions, pronoun errors, and incomplete sentences are an occasional consequence of this system due to software limitations, ambient noise, and hardware issues. Any formal questions or concerns about the content, text, or information contained within the body of this dictation should be directly addressed to the physician for clarification. Consults Time Called: 1942 Consulting Physician: Dr. Nuvia REGALADO Returned Call: 2014 Discussed the patient's case with Dr. Nuvia REGALADO The patient will be evaluated for further treatment and disposition. Impression Primary Impression: Acute pancreatitis Scribe Attestation The scribe's documentation has been prepared under my direction and personally reviewed by me in its entirety. I confirm that the note above accurately reflects all work, treatment, procedures, and medical decision making performed by me. Departure Information Dispostion Being Evaluated By Hospitalist Referrals No Doctor, Assigned (PCP) Patient Instructions My [facility] Problem Qualifiers Primary Impression: Acute pancreatitis Pancreatitis type: unspecified pancreatitis type Acute pancreatitis complication: unspecified Qualified Codes: K85.90 - Acute pancreatitis without necrosis or infection, unspecified
[2016-06-21] MEDS: HYDROmorphone INJ 1 MG/ML SYR IV PRN (22:18)
[2016-06-21] MEDS ORDERED: FoLIC ACID INJ 1 MG in SYRINGE 9.8 ML IV STA (22:18)
[2016-06-21] MEDS ORDERED: THIAMINE HCL 100 MG/ML 2 ML VIAL IM STA (22:18)
[2016-06-21] MEDS ORDERED: MAGNESIUM SULFATE 1GM / D5W 1 GM in PREMIXED IN D5W 100 ML IV STA (22:22)
[2016-06-21 22:27] VITALS: BP 125/84; PULSE 99; TEMP 36.8; O2SAT 94
[2016-06-21] MEDS: NICOTINE 21 MG/24 HR TDSY TD SCH (22:30)
[2016-06-21] MEDS: D5NSS + 20MEQ KCL 1,000 ML IV SCH (22:36)
[2016-06-21] MEDS: IPRATROPIUM BROMIDE/ALBUTEROL respimat INH INH SCH (22:43)
[2016-06-21] MEDS: POTASSIUM CHLR 10 MEQ / WTR 10 MEQ in PREMIXED WATER 100 ML IV SCH (22:49)
[2016-06-21] MEDS: HEPARIN SOD 5000 UNIT/0.5 ML CARP SQ SCH (22:56)
[2016-06-21 23:33] VITALS: BP 134/90; PULSE 86; TEMP 36.8; O2SAT 95
[2016-06-22] MEDS: POTASSIUM CHLR 10 MEQ / WTR 10 MEQ in PREMIXED WATER 100 ML IV SCH ×7 (00:12→15:41)
[2016-06-22] MEDS: HYDROmorphone INJ 1 MG/ML SYR IV PRN ×6 (00:56→19:57)
[2016-06-22] MEDS: LORAZEPAM INJ 1 MG in SYRINGE 0.5 ML IV PRN ×2 (01:07→04:56)
[2016-06-22] MEDS: D5NSS + 20MEQ KCL 1,000 ML IV SCH ×4 (05:29→21:31)
[2016-06-22] MEDS: HEPARIN SOD 5000 UNIT/0.5 ML CARP SQ SCH ×3 (06:00→21:32)
[2016-06-22 07:15] VITALS: BP_SYST 117; BP_SYST 163; BP_DIAS 74; BP_DIAS 80; PULSE 86; PULSE 94; TEMP 36.6; TEMP 36.7; O2SAT 95; O2SAT 97
[2016-06-22] MEDS: IPRATROPIUM BROMIDE/ALBUTEROL respimat INH INH SCH ×4 (07:22→21:32)
[2016-06-22] MEDS: LOSARTAN POTASSIUM 50 MG TAB PO SCH (07:22)
[2016-06-22] MEDS: NICOTINE 21 MG/24 HR TDSY TD SCH ×2 (07:23→07:25)
[2016-06-22] MEDS: THIAMINE HCL 100 MG TAB PO SCH (07:23)
[2016-06-22 08:00] VITALS: O2SAT 95
[2016-06-22 08:30] LABS: BUN/CREATININE RATIO 9.2 (10-20); CALCIUM 7.8 mg/dl (8.5-10.1); CREATININE 0.74 mg/dl (0.60-1.20); MAGNESIUM 2.1 mg/dl (1.8-2.4); POTASSIUM 2.9 mmol/L (3.5-5.1)
[2016-06-22] MEDS ORDERED: HYDROCHLOROTHIAZIDE 25 MG TAB PO SCH (09:00)
--- NOTE | 2016-06-22 13:59 | Hospitalist Progress Note ---
Hospitalist Progress Note Date of Service Jun 22, 2016. (Nguyen Negro ., CHRISSYC) Subjective Pt evaluation today including: conversation w/ patient, physical exam, chart review, lab review, review of studies, review of inpatient medication list Pain: 6/10 sharp epigastric pain PO Intake: NPO Voiding: no voiding problems Patient complains of a 6 out of 10 sharp pain located in her epigastric area. She denies any nausea or vomiting. She is being kept nothing by mouth. She denies any symptoms of alcohol withdrawal. The patient denies fevers, chills, sweats, chest pain, palpitations, claudication, cough, wheezing, shortness of breath, nausea, vomiting, dysuria, hematuria, urinary retention, paralysis, weakness, numbness and tingling. Additional Comments: See HPI for pertinent positives and negatives. All other systems reviewed and negative. (Nguyen Negro, CHRISSYC) Objective Vital Signs Date Time Temp Pulse Resp B/P Pulse Ox O2 Delivery O2 Flow Rate FiO2 06/22/16 08:00 95 Room Air 06/22/16 07:15 36.7 94 20 117/80 95 Room Air 06/22/16 00:01 Room Air 06/21/16 23:33 36.8 86 18 134/90 95 Room Air 06/21/16 22:27 36.8 99 16 125/84 94 06/21/16 21:31 82 18 122/59 98 06/21/16 21:06 Room Air 06/21/16 19:36 85 20 127/86 98 Room Air 06/21/16 18:50 88 20 138/81 97 Room Air 06/21/16 17:20 92 18 137/85 98 Room Air 06/21/16 15:22 37.4 108 18 137/97 98 Room Air (Nguyen Negro ., ESTHELA-C) Physical Exam General Appearance: WD/WN, no apparent distress Eyes: normal inspection, PERRL, EOMI, + pertinent finding (ecchymosis under R eye) ENT: normal ENT inspection, hearing grossly normal, pharynx normal Neck: supple, no JVD, trachea midline Respiratory/Chest: lungs clear, normal breath sounds, no respiratory distress Cardiovascular: no gallop, no murmur, + tachycardia (regular rhythm) Abdomen: normal bowel sounds, soft, + tenderness (mild diffuse tenderness, marked epigastric tenderness) Extremities: non-tender, normal inspection, no pedal edema Neurologic/Psychiatric: alert, normal mood/affect, oriented x 3 Skin: normal color, warm/dry, no rash (Nguyen Negro, MAICO) Laboratory Results Last 24 Hours Test 06/21/16 17:04 06/21/16 19:34 06/22/16 07:14 White Blood Count 5.48 K/uL Red Blood Count 3.75 M/uL Hemoglobin 14.8 g/dL Hematocrit 40.5 % Mean Corpuscular Volume 108.0 fL Mean Corpuscular Hemoglobin 39.5 pg Mean Corpuscular Hemoglobin Concent 36.5 g/dl Platelet Count 180 K/uL Mean Platelet Volume 10.3 fL Neutrophils (%) (Auto) 54.1 % Lymphocytes (%) (Auto) 22.6 % Monocytes (%) (Auto) 19.7 % Eosinophils (%) (Auto) 0.9 % Basophils (%) (Auto) 0.9 % Neutrophils # (Auto) 2.96 K/uL Lymphocytes # (Auto) 1.24 K/uL Monocytes # (Auto) 1.08 K/uL Eosinophils # (Auto) 0.05 K/uL Basophils # (Auto) 0.05 K/uL RDW Standard Deviation 56.8 fL RDW Coefficient of Variation 14.2 % Immature Granulocyte % (Auto) 1.8 % Immature Granulocyte # (Auto) 0.10 K/uL Sodium Level 136 mmol/L 140 mmol/L Potassium Level 2.8 mmol/L 2.9 mmol/L Chloride Level 95 mmol/L 104 mmol/L Carbon Dioxide Level 29 mmol/L 25 mmol/L Anion Gap 12.0 mmol/L 11.0 mmol/L Blood Urea Nitrogen 10 mg/dl 7 mg/dl Creatinine 0.82 mg/dl 0.74 mg/dl Est Creatinine Clear Calc Drug Dose 92.1 ml/min 102.1 ml/min Estimated GFR () 96.0 108.7 Estimated GFR (Non- 82.9 93.8 BUN/Creatinine Ratio 11.8 9.2 Random Glucose 124 mg/dl 141 mg/dl Calcium Level 8.9 mg/dl 7.8 mg/dl Total Bilirubin 0.8 mg/dl Aspartate Amino Transf (AST/SGOT) 83 U/L Alanine Aminotransferase (ALT/SGPT) 78 U/L Alkaline Phosphatase 140 U/L Troponin I < 0.015 ng/ml Total Protein 6.8 gm/dl Albumin 3.5 gm/dl Globulin 3.3 gm/dl Albumin/Globulin Ratio 1.1 Amylase Level 62 U/L Lipase 745 U/L 595 U/L Hepatitis C Antibody Screen NEG Urine Color DK YELLOW Urine Appearance CLOUDY Urine pH 6.5 Urine Specific [place] 1.007 Urine Protein NEG Urine Glucose (UA) NEG Urine Ketones TRACE Urine Occult Blood NEG Urine Nitrite NEG Urine Bilirubin NEG Urine Urobilinogen NEG Urine Leukocyte Esterase NEG Urine WBC (Auto) 1-5 /hpf Urine RBC (Auto) 0-4 /hpf Urine Hyaline Casts (Auto) 1-5 /lpf Urine Epithelial Cells (Auto) >30 /lpf Urine Bacteria (Auto) 2+ Magnesium Level 2.1 mg/dl (Nguyen Negro, MAICO) Assessment and Plan 51 y/o female with a history of HTN, alcohol abuse, and one previous episode of ETOH-related pancreatitis about 1 month ago presents with abdominal pain, N/V. Denies fevers and CP. She has chronic diarrhea related to IBS but this has not worsened. Pain, N/V began 1 week prior and has become gradually more severe. The pt claims she has not had solid food in [address] reveals pancreatic inflammation consistent with acute pancreatitis. Labs are notable for an elevated lipase and hypokalemia. The pt states she has not had ETOH since a diagnosis of pancreatitis one month earlier and has not suffered withdrawal. Acute pancreatitis, likely secondary to ETOH -Admitted to med/surg -Pt kept NPO except meds -Aggressive fluids with D5 NSS +20 mEq KCl, increase rate to 200 cc/hr -Continue pain control with IV Dilaudid -Zofran 4 mg IV q6h prn nausea Hypokalemia--ongoing -Potassium 2.8 upon arrival, received KCl 40 mEq IV as well as fluids as above -Repeat potassium 2.9 on 06/22. An additional 40 mEq KCl IV ordered. Increased fluid rate as above. -Hold HCTZ -Magnesium within normal limits -Continue to monitor H/o alcohol abuse--patient states she quit 1 month ago due to previous pancreatitis episode -Alcohol withdrawal protocol -Lorazepam 1 mg IV q3h prn -Continue thiamine 100 mg PO qd and folic acid 1 mg PO qd HTN--stable -Hold HCTZ -Continue losartan 50 mg PO qd DVT prophylaxis -Heparin 5000 units SC q8h Code Status -Level I, FULL RESUSCITATION STATUS (Nguyen Negro ., MAICO) Reviewed: Pt Seen/Exam by Me (Yazmin Dale MD) History Physician Telephone Order Clerk Supervision Note: I interviewed and examined the patient. Discussed with ESTHELA Negro and agree with findings and plan as documented in the note. Any exceptions or clarifications are listed here: Pt still with moderate abd pain but feels hungry. Has been having N/V ongoing for a month, barely able to eat anything. Has occasional bright red blood on toilet paper with her chronic diarrhea, bleeding just for the last month. Vitals reviewed NAD, tearful at times RRR no mgr CTAB breathing unlabored ABd +BS, soft, +TTP diffusely but worse in periumbilical region w/o guarding or rebound Ext no edema, 1+ DP pulses Skin no rash, right periorbital ecchymosis 51 yo female with acute on chronic EtOH pancreatitis, abd pain, could also have superimposed PUD. H/o EtOH abuse. Is s/p cholecystectomy. Has severe fatty liver. -add on IV PPI bid -consult GI to see about EGD to r/o PUD -keep NPO, IVFs , pain control -check prealbumin, TGs, follow lipase, CMP -counseled on smoking cessation, declines EtOH rehab Documented By: Yazmin Dale (Yazmin Dale MD)
[2016-06-22 15:54] VITALS: BP 113/76; PULSE 83; TEMP 36.8; O2SAT 96
[2016-06-22 16:05] VITALS: BP 113/77; PULSE 91; TEMP 36.5; O2SAT 95
[2016-06-22] MEDS: PANTOprazole INJ 40 MG in SYRINGE 0 ML IV SCH (23:00)
[2016-06-23] VITALS (7 sets, daily range): BP systolic 109–132; BP diastolic 74–83; PULSE 82–94; TEMP 36.5–36.9; O2SAT 96–98
[2016-06-23] MEDS: HYDROmorphone INJ 1 MG/ML SYR IV PRN ×7 (00:38→21:25)
[2016-06-23] MEDS: LORAZEPAM INJ 1 MG in SYRINGE 0.5 ML IV PRN (02:50)
[2016-06-23] MEDS: HEPARIN SOD 5000 UNIT/0.5 ML CARP SQ SCH ×3 (06:00→21:29)
[2016-06-23 06:02] LABS: BASO % 0.8 %; BASO ABS # 0.05 K/uL (0-0.2); HEMATOCRIT 37.4 % (37-47); IG% 0.8 %; LYMPH % 16.3 %; MEAN PLATELET VOLUME 9.9 fL (7.4-10.4); MONO % 22.1 %; PLATELET COUNT 213 K/uL (130-400); RED BLOOD COUNT 3.34 M/uL (4.2-5.4); WHITE BLOOD COUNT 6.14 K/uL (4.8-10.8)
[2016-06-23 06:25] LABS: COMPLETE YES; POLYCHROMASIA 1+
[2016-06-23 06:42] LABS: BUN/CREATININE RATIO 5.4 (10-20); CALCIUM 7.7 mg/dl (8.5-10.1); CREATININE 0.95 mg/dl (0.60-1.20); PHOSPHORUS 2.5 mg/dl (2.5-4.9); POTASSIUM 3.2 mmol/L (3.5-5.1)
[2016-06-23 06:51] LABS: PREALBUMIN 21.9 mg/dl (20-40); THYROID STIMULATING HORMONE 2.56 uIu/ml (0.300-4.500)
[2016-06-23] MEDS: PANTOprazole INJ 40 MG in SYRINGE 0 ML IV SCH (08:48)
[2016-06-23] MEDS: THIAMINE HCL 100 MG TAB PO SCH (08:48)
[2016-06-23] MEDS: LOSARTAN POTASSIUM 50 MG TAB PO SCH (08:48)
[2016-06-23] MEDS: IPRATROPIUM BROMIDE/ALBUTEROL respimat INH INH SCH ×4 (08:49→21:24)
[2016-06-23] MEDS: NICOTINE 21 MG/24 HR TDSY TD SCH (08:56)
[2016-06-23] MEDS: POTASSIUM CHLR 10 MEQ / WTR 10 MEQ in PREMIXED WATER 100 ML IV SCH ×4 (09:40→12:04)
--- NOTE | 2016-06-23 11:46 | Gastrointestinal Consultation ---
Gastrointestinal Consultation Date of Consultation: Jun 23, 2016 Attending Physician: Yazmin Dale Consulting Physician: Indira Fields Reason for Consultation: Epigastric abd pain, nausea History of Present Illness Patient is a 51 year old female w PMHx of ETOH pancreatitis, HTN, who presented to ED w c/o epigastric abd pain, n/v, progressive weakness, and unable to tolerated PO food intake x 1 week. She denies any fever, chills, CP, SOB. She does have loose stools but states this has been since her cholecystectomy. She was placed on Questran on daily basis but this would cause her to be too constipated thus now only taking it prn. She does have scant rectal bleeding which she think it's hemorrhoidal. She was in ED on 05/16/16 for similar complaints. Found to have ETOH level of 200s. LFTs were up AST 300, ALT 160s, lipase 400s. She was discharged w ETOH pancreatitis. She states since then hasn' t had any more ETOH. Still smokes, now down to 1/2 PPD of cigarettes. Labs obtained showed no leukocytosis. Chem panel showed hypokalemia, now improvign. Her LFTs are midly up now: Tbili -0.3, AST 77, ALT 63, Ap 108. Lipase initially in 700s, trending down to 300s now. CT abd/pelvis w minimal peripancreatic infiltration, fatty liver, and mild CBD dilation likely from post cholecystectomy Past Medical/Surgical History Medical Problems: (1) Acute pancreatitis Status: Acute (2) Alcohol intoxication Status: Acute (3) Pancreatitis Status: Acute Past Medical History: See above. Past Surgical History: Cholecystectomy, total hysterectomy, L foot surgery Family History No significant family history Social History Smoking Status: Current Every Day Smoker Alcohol Use: other (Hx of 2-3 mixed drinks daily. None now x1 month) Drug Use: none Marital Status: single Occupation Status: employed Allergies Coded Allergies: Penicillins (Verified Allergy, Intermediate, RASH/HIVES, 06/23/16) Sulfa Antibiotics (Verified Allergy, Intermediate, HIVES, 06/23/16) Codeine (Verified Allergy, Unknown, 06/23/16) Indomethacin (Verified Allergy, Unknown, 06/23/16) Iodine (Verified Allergy, Unknown, 06/23/16) Lamar (Verified Allergy, Unknown, 06/23/16) Current Medications Home Meds and Scripts Medications Dose Route/Sig Max Daily Dose Days Date Category Zofran (Ondansetron HCl) 4 Mg Tab 4 Mg PO Q8H PRN 05/16/16 Rx Librium (Chlordiazepoxide) 25 Mg Cap 25 Mg PO TID PRN 05/16/16 Rx Hydrochlorothiazide 25 Mg Tab 25 Mg PO DAILY 05/16/16 Reported Losartan Potassium 50 Mg Tab 50 Mg PO DAILY 05/16/16 Reported Combivent Respimat (Ipratropium-Albuterol) 1 Aer Aer 1 Puff PO QID 05/16/16 Reported Review of Systems Constitutional: No chills, No fever Respiratory: No cough, No shortness of breath Cardiac: No chest pain Abdomen: + GI bleeding (see above), + diarrhea, + nausea, + pain, No vomiting Skin: + problem reported (R below eye bruising due to fall and hitting sink), No itch, No jaundice, No rash Physical Exam Date Time Temp Pulse Resp B/P Pulse Ox O2 Delivery O2 Flow Rate FiO2 06/23/16 08:00 Room Air 06/23/16 07:32 36.9 82 18 115/80 96 Room Air 06/23/16 00:19 36.8 83 16 109/74 97 Room Air 06/23/16 00:00 97 Room Air 06/22/16 16:05 36.5 91 22 113/77 95 Room Air 06/22/16 16:00 Room Air 06/22/16 15:54 36.8 83 17 113/76 96 Room Air General Appearance: WD/WN, no apparent distress Eyes: normal inspection, PERRL, EOMI Neck: supple, no JVD, trachea midline Respiratory/Chest: normal breath sounds, no respiratory distress, no accessory muscle use Cardiovascular: no gallop, no murmur Abdomen: + abnormal bowel sounds (hypoactive), + tenderness (epigastric, R mid abd area) Extremities: normal inspection, no pedal edema, no calf tenderness Neurologic/Psych: alert, normal mood/affect, oriented x 3, + pertinent finding (tremors on hands) Skin: normal color, no jaundice, no rash Laboratory Results Last 24 Hours Test 06/23/16 05:30 White Blood Count 6.14 K/uL Red Blood Count 3.34 M/uL Hemoglobin 12.7 g/dL Hematocrit 37.4 % Mean Corpuscular Volume 112.0 fL Mean Corpuscular Hemoglobin 38.0 pg Mean Corpuscular Hemoglobin Concent 34.0 g/dl Platelet Count 213 K/uL Mean Platelet Volume 9.9 fL Neutrophils (%) (Auto) 58.0 % Lymphocytes (%) (Auto) 16.3 % Monocytes (%) (Auto) 22.1 % Eosinophils (%) (Auto) 2.0 % Basophils (%) (Auto) 0.8 % Neutrophils # (Auto) 3.56 K/uL Lymphocytes # (Auto) 1.00 K/uL Monocytes # (Auto) 1.36 K/uL Eosinophils # (Auto) 0.12 K/uL Basophils # (Auto) 0.05 K/uL RDW Standard Deviation 59.9 fL RDW Coefficient of Variation 14.6 % Immature Granulocyte % (Auto) 0.8 % Immature Granulocyte # (Auto) 0.05 K/uL Polychromasia 1+ Sodium Level 144 mmol/L Potassium Level 3.2 mmol/L Chloride Level 110 mmol/L Carbon Dioxide Level 24 mmol/L Anion Gap 10.0 mmol/L Blood Urea Nitrogen 5 mg/dl Creatinine 0.95 mg/dl Est Creatinine Clear Calc Drug Dose 79.5 ml/min Estimated GFR () 80.4 Estimated GFR (Non- 69.4 BUN/Creatinine Ratio 5.4 Random Glucose 102 mg/dl Calcium Level 7.7 mg/dl Phosphorus Level 2.5 mg/dl Magnesium Level 2.0 mg/dl Total Bilirubin 0.7 mg/dl Direct Bilirubin 0.3 mg/dl Aspartate Amino Transf (AST/SGOT) 77 U/L Alanine Aminotransferase (ALT/SGPT) 63 U/L Alkaline Phosphatase 108 U/L Total Protein 5.9 gm/dl Albumin 3.1 gm/dl Prealbumin 21.9 mg/dl Triglycerides Level 112 mg/dl Lipase 379 U/L Vitamin B12 Level 697 pg/mL Folate 4.59 ng/mL Thyroid Stimulating Hormone (TSH) 2.560 uIu/ml Impression Patient is a 51 year old female w hx of ETOH pancreatitis, presented w 1 week symptoms of progressive weakness, epigastric abd pain, n/v, inability to tolerate PO food intake. Labs & CT abd/pelvis showed mild pancreatitis. She is s /p cholecystectomy, denies ETOH intake x 1 month, she smokes 1/2 PPD. Plan - IVF hydration. D5NS w KCl @150ml/hr - Protonix 40mg IV BID - Keep NPO; schedule EGD evaluation to r/o PUD - Strict ETOH cessation; encouraged to quit tobacco use. - She is usually followed by [facility]. Has chronic diarrhea which I suspect is bile acid related to her post cholecystectomy state. Currently on Questran prn. She has had colonoscopy in 2016 w random bx which are unremarkable. I saw and evaluated the patient. She presents with persistent abdominal pain and a history of alcohol induced pancreatits. PE: nad, mild epigastric tenderness. Plan EGD today Alcohol cessation consider OP EUS if symptoms persist
[2016-06-23] MEDS: D5NSS + 20MEQ KCL 1,000 ML IV SCH ×2 (12:04→18:10)
[2016-06-23] MEDS ORDERED: LIDOCAINE HCL 2% 2 ML VIAL (20MG/ML) ONE (12:17)
[2016-06-23] MEDS ORDERED: MIDAZOLAM HCL 1 MG/ML 2ML VIAL ONE (12:17)
[2016-06-23] MEDS ORDERED: PROPOFOL IV EMULSION 10 MG/ML 20 ML VIAL IV ONE (12:18)
[2016-06-23] MEDS ORDERED: ONDANSETRON INJ 2 MG/ML 2 ML VIAL ONE (12:18)
[2016-06-23] MEDS ORDERED: SUCRALFATE 1 GM/10 ML UDC PO ONE (13:43)
--- NOTE | 2016-06-23 13:44 | Hospitalist Progress Note ---
Hospitalist Progress Note Date of Service Jun 23, 2016. (Nguyen Negro .MAICO) Subjective Pt evaluation today including: conversation w/ patient, physical exam, chart review, lab review, review of inpatient medication list Pain: 7/10 abdominal pain PO Intake: Strict NPO Voiding: no voiding problems Patient complains of a 7/10 abdominal pain located in the center of her abdomen that does not radiate. She states that she has not had any more nausea or vomiting and states that she is hungry and would like to eat food. She denies any tremors or seizures. She states that she does get anxious around nighttime has been receiving IV Ativan, which helps. The patient is being kept strict NPO for possible EGD later today. The patient denies fevers, chills, sweats, chest pain, palpitations, claudication, cough, wheezing, shortness of breath, nausea, vomiting, dysuria, hematuria, urinary retention, paralysis, weakness, numbness and tingling. Additional Comments: See HPI for pertinent positives and negatives. All other systems reviewed and negative. (Nguyen Negro ., CHRISSYC) Objective Vital Signs Date Time Temp Pulse Resp B/P Pulse Ox O2 Delivery O2 Flow Rate FiO2 06/23/16 12:27 36.9 91 18 122/82 95 Room Air 06/23/16 12:05 36.9 82 18 115/80 96 Room Air 06/23/16 08:00 Room Air 06/23/16 07:32 36.9 82 18 115/80 96 Room Air 06/23/16 00:19 36.8 83 16 109/74 97 Room Air 06/23/16 00:00 97 Room Air 06/22/16 16:05 36.5 91 22 113/77 95 Room Air 06/22/16 16:00 Room Air 06/22/16 15:54 36.8 83 17 113/76 96 Room Air (Nguyen Negro PA-C) Physical Exam General Appearance: WD/WN, no apparent distress Eyes: normal inspection, PERRL, EOMI ENT: normal ENT inspection, hearing grossly normal, pharynx normal Neck: supple, no JVD, trachea midline Respiratory/Chest: lungs clear, normal breath sounds, no respiratory distress Cardiovascular: no gallop, no murmur, + tachycardia (regular rhythm) Abdomen: normal bowel sounds, soft, + tenderness (umbilical area markedly TTP, mild epigastric tenderness) Extremities: non-tender, normal inspection, no pedal edema Neurologic/Psychiatric: alert, normal mood/affect, oriented x 3 Skin: normal color, warm/dry, no rash (Nguyen Negro, MAICO) Laboratory Results Last 24 Hours Test 06/23/16 05:30 White Blood Count 6.14 K/uL Red Blood Count 3.34 M/uL Hemoglobin 12.7 g/dL Hematocrit 37.4 % Mean Corpuscular Volume 112.0 fL Mean Corpuscular Hemoglobin 38.0 pg Mean Corpuscular Hemoglobin Concent 34.0 g/dl Platelet Count 213 K/uL Mean Platelet Volume 9.9 fL Neutrophils (%) (Auto) 58.0 % Lymphocytes (%) (Auto) 16.3 % Monocytes (%) (Auto) 22.1 % Eosinophils (%) (Auto) 2.0 % Basophils (%) (Auto) 0.8 % Neutrophils # (Auto) 3.56 K/uL Lymphocytes # (Auto) 1.00 K/uL Monocytes # (Auto) 1.36 K/uL Eosinophils # (Auto) 0.12 K/uL Basophils # (Auto) 0.05 K/uL RDW Standard Deviation 59.9 fL RDW Coefficient of Variation 14.6 % Immature Granulocyte % (Auto) 0.8 % Immature Granulocyte # (Auto) 0.05 K/uL Polychromasia 1+ Sodium Level 144 mmol/L Potassium Level 3.2 mmol/L Chloride Level 110 mmol/L Carbon Dioxide Level 24 mmol/L Anion Gap 10.0 mmol/L Blood Urea Nitrogen 5 mg/dl Creatinine 0.95 mg/dl Est Creatinine Clear Calc Drug Dose 79.5 ml/min Estimated GFR () 80.4 Estimated GFR (Non- 69.4 BUN/Creatinine Ratio 5.4 Random Glucose 102 mg/dl Calcium Level 7.7 mg/dl Phosphorus Level 2.5 mg/dl Magnesium Level 2.0 mg/dl Total Bilirubin 0.7 mg/dl Direct Bilirubin 0.3 mg/dl Aspartate Amino Transf (AST/SGOT) 77 U/L Alanine Aminotransferase (ALT/SGPT) 63 U/L Alkaline Phosphatase 108 U/L Total Protein 5.9 gm/dl Albumin 3.1 gm/dl Prealbumin 21.9 mg/dl Triglycerides Level 112 mg/dl Lipase 379 U/L Vitamin B12 Level 697 pg/mL Folate 4.59 ng/mL Thyroid Stimulating Hormone (TSH) 2.560 uIu/ml (Nguyen Negro, MAICO) Assessment and Plan 51 y/o female with a history of HTN, alcohol abuse, and one previous episode of ETOH-related pancreatitis about 1 month ago presents with abdominal pain, N/V. Denies fevers and CP. She has chronic diarrhea related to IBS but this has not worsened. Pain, N/V began 1 week prior and has become gradually more severe. The pt claims she has not had solid food in [address] reveals pancreatic inflammation consistent with acute pancreatitis. Labs are notable for an elevated lipase and hypokalemia. The pt states she has not had ETOH since a diagnosis of pancreatitis one month earlier and has not suffered withdrawal. Acute pancreatitis, likely secondary to ETOH -Admitted to med/surg -Pt feeling better, decrease IVF to D5 NSS +20 mEq KCl 150 cc/hr -Prealbumin and triglycerides within normal limits -Continue pain control with IV Dilaudid -Zofran 4 mg IV q6h prn nausea -Advance diet to clears Hypokalemia--improved -Potassium 2.8 upon arrival, received KCl 40 mEq IV as well as fluids as above -Repeat potassium 2.9 on 06/22. An additional 40 mEq KCl IV ordered. -Hold HCTZ. Pt had received 1 dose on 06/22 before hold could be put into effect -Magnesium remains within normal limits -Potassium on 06/23 was 3.2. An additional 40 mEq KCl IV ordered -Continue to monitor H/o alcohol abuse--patient states she quit 1 month ago due to previous pancreatitis episode -Alcohol withdrawal protocol -Lorazepam 1 mg IV q3h prn -Vitamin B12 within normal limits, folate low at 4.59 -Continue thiamine 100 mg PO qd and folic acid 1 mg PO qd -Consulted GI for possible PUD given ETOH abuse, appreciate recs: Pt taken for EGD today. Severe gastritis. Recommend Carafate and once daily PPI. May advance diet to clear liquids. Strict alcohol cessation. Patient encouraged to stop smoking -Carafate 1 gm PO QID, 1 dose now. May also be beneficial for patient's history of chronic diarrhea. -Protonix 40 mg PO qd HTN--stable -Hold HCTZ -Continue losartan 50 mg PO qd DVT prophylaxis -Heparin 5000 units SC q8h Code Status -Level I, FULL RESUSCITATION STATUS (Nguyen Negro ., MAICO) Reviewed: Pt Seen/Exam by Me (Yazmin Dale MD) History Physician Ski Lift Mechanic Supervision Note: I interviewed and examined the patient. Discussed with ESTHELA Negro and agree with findings and plan as documented in the note. Any exceptions or clarifications are listed here: Pt still with moderate abd pain but feels hungry. Has been having N/V ongoing for a month, barely able to eat anything. Has occasional bright red blood on toilet paper with her chronic diarrhea, bleeding just for the last month. Vitals reviewed NAD RRR no mgr CTAB breathing unlabored ABd +BS, soft, +TTP periumbilical region w/o guarding or rebound, improved from yesterday Ext no edema, 1+ DP pulses Skin no rash, right periorbital ecchymosis Rectal exam from yesterday showed skin tags but no ext hemorrhoids, no masses, internal exam not performed 51 yo female with acute on chronic EtOH pancreatitis, abd pain, gastritis seen on EGD. H/o EtOH abuse. Is s/p cholecystectomy. Has severe fatty liver. -change to po PPI, added carafate -adv diet to clears, continue IVFs , pain control -counseled on smoking cessation, declines EtOH rehab -encouraged ambulation -for rectal bleeding-just had colonoscopy 1 yr ago that was normal -f/u with GI as outpt Documented By: Yazmin Dale (Yazmin Dale MD)
--- NOTE | 2016-06-23 13:49 | Anesthesiology Progress Note ---
Anesthesia Post Op Note Date & Time Jun 23, 2016 at 13:49 Vital Signs Pain Intensity: 7.0 Vital Signs Past 12 Hours Date Time Temp Pulse Resp B/P Pulse Ox O2 Delivery O2 Flow Rate FiO2 06/23/16 13:35 79 16 97/54 97 Mask 5 06/23/16 12:27 36.9 91 18 122/82 95 Room Air 06/23/16 12:05 36.9 82 18 115/80 96 Room Air 06/23/16 08:00 Room Air 06/23/16 07:32 36.9 82 18 115/80 96 Room Air Notes Mental Status: alert / awake / arousable, participated in evaluation Pt Amnestic to Procedure: Yes Nausea / Vomiting: adequately controlled Pain: adequately controlled Airway Patency, RR, SpO2: stable & adequate BP & HR: stable & adequate Hydration State: stable & adequate Anesthetic Complications: no major complications apparent
[2016-06-23] MEDS ORDERED: SUCRALFATE 1 GM/10 ML UDC PO SCH (17:00)
[2016-06-23] MEDS: SUCRALFATE 1 GM/10 ML UDC PO SCH ×2 (18:10→21:24)
[2016-06-24] MEDS: D5NSS + 20MEQ KCL 1,000 ML IV SCH ×4 (00:03→19:49)
--- NOTE | 2016-06-24 00:46 | GI REPORT ---
Procedure Date: 06/23/2016 12:26 PM Procedure: Upper GI endoscopy Indications: Epigastric abdominal pain Medicines: Monitored Anesthesia Care Complications: No immediate complications. Estimated blood loss: Minimal. Estimated Blood Loss: Estimated blood loss was minimal. Procedure: Pre-Anesthesia Assessment: - Prior to the procedure, a History and Physical was performed, and patient medications, allergies and sensitivities were reviewed. The patient's tolerance of previous anesthesia was reviewed. - The risks and benefits of the procedure and the sedation options and risks were discussed with the patient. All questions were answered and informed consent was obtained. - Patient identification and proposed procedure were verified prior to the procedure by the physician, the nurse and the semiconductor wafers marker. The procedure was verified in the procedure room. - Pre-procedure physical examination revealed no contraindications to sedation. - ASA Grade Assessment: III - A patient with severe systemic disease. - After reviewing the risks and benefits, the patient was deemed in satisfactory condition to undergo the procedure. - The anesthesia plan was to use monitored anesthesia care (MAC). - Immediately prior to administration of medications, the patient was re-assessed for adequacy to receive sedatives. - The heart rate, respiratory rate, oxygen saturations, blood pressure, adequacy of pulmonary ventilation, and response to care were monitored throughout the procedure. - The physical status of the patient was re-assessed after the procedure. After obtaining informed consent, the endoscope was passed under direct vision. Throughout the procedure, the patient's blood pressure, pulse, and oxygen saturations were monitored continuously. The scope was introduced through the mouth, and advanced to the third part of duodenum. The upper GI endoscopy was accomplished without difficulty. The patient tolerated the procedure well. Findings: The examined esophagus was normal. The Z-line was regular and was found 38 cm from the incisors. Diffuse moderate inflammation characterized by congestion (edema), erythema and granularity was found in the entire examined stomach. Biopsies were taken with a cold forceps for histology. Estimated blood loss was minimal. Diffuse moderate inflammation characterized by congestion (edema), erythema and granularity was found in the duodenal bulb. Biopsies were taken with a cold forceps for histology. Estimated blood loss was minimal. The 2nd part of the duodenum and 3rd part of the duodenum were normal. Impression: - Normal esophagus. - Z-line regular, 38 cm from the incisors. - Gastritis and duodenitis likely related to medications or recent problems with pancreatitis. Biopsied. - Normal 2nd part of the duodenum and 3rd part of the duodenum. Recommendation: - [facility] care. - Clear liquid diet. - Await pathology results. - Observe patient's clinical course. - Try a carafate slurry 2 times daily - Continue Protonix 40 mg per day - Continue IV hydration for mild pancreatitis Indira Fields D.O. Indira Fields, DO 06/23/2016 1:36:05 PM This report has been signed electronically. Note Initiated On: 06/23/2016 12:26 PM I attest to the content of the Intraoperative Record and orders documented therein, exceptions below
[2016-06-24] MEDS: HYDROmorphone INJ 1 MG/ML SYR IV PRN ×6 (00:48→23:37)
[2016-06-24] MEDS: HEPARIN SOD 5000 UNIT/0.5 ML CARP SQ SCH ×3 (06:36→19:56)
[2016-06-24] MEDS: SUCRALFATE 1 GM/10 ML UDC PO SCH ×4 (06:36→19:50)
[2016-06-24 07:17] LABS: MEAN CELL VOLUME 110.8 fL (80-100); MEAN CORPUSCULAR HEMOGLOBIN 37.5 pg (25-34); MEAN CORPUSCULAR HGB CONC 33.9 g/dl (32-36); MEAN PLATELET VOLUME 9.8 fL (7.4-10.4); PLATELET COUNT 244 K/uL (130-400); RED BLOOD COUNT 3.25 M/uL (4.2-5.4); WHITE BLOOD COUNT 5.54 K/uL (4.8-10.8)
[2016-06-24 07:48] VITALS: BP 128/84; PULSE 98; TEMP 36.5; O2SAT 98
[2016-06-24 07:53] LABS: BUN/CREATININE RATIO 4.2 (10-20); CALCIUM 7.4 mg/dl (8.5-10.1); CREATININE 0.93 mg/dl (0.60-1.20); MAGNESIUM 1.7 mg/dl (1.8-2.4); POTASSIUM 3.3 mmol/L (3.5-5.1)
[2016-06-24 08:00] VITALS: O2SAT 98
[2016-06-24] MEDS: THIAMINE HCL 100 MG TAB PO SCH (08:59)
[2016-06-24] MEDS: LOSARTAN POTASSIUM 50 MG TAB PO SCH (08:59)
[2016-06-24] MEDS: PANTOprazole SOD 40 MG TAB PO SCH (08:59)
[2016-06-24] MEDS: IPRATROPIUM BROMIDE/ALBUTEROL respimat INH INH SCH ×4 (08:59→19:49)
[2016-06-24] MEDS: NICOTINE 21 MG/24 HR TDSY TD SCH (09:00)
--- NOTE | 2016-06-24 10:56 | Hospitalist Progress Note ---
Hospitalist Progress Note Date of Service Jun 24, 2016. Subjective Pt evaluation today including: conversation w/ patient, physical exam, lab review had increased epigastric pain with eating vegetable broth last night and this AM. Feels tired. Had nausea with that broth as well. No more diarrhea, no blood in stool. Afebrile. EGD with severe gastritis and duodenitis yesterday Constitutional: No fever Respiratory: No shortness of breath Cardiovascular: No chest pain Abdomen: + nausea, + pain, No GI bleeding All Other Systems: Reviewed and Negative Objective Vital Signs Date Time Temp Pulse Resp B/P Pulse Ox O2 Delivery O2 Flow Rate FiO2 06/24/16 08:00 98 Room Air 06/24/16 07:48 36.5 98 22 128/84 98 Room Air 06/24/16 00:00 Room Air 06/23/16 23:27 36.6 94 16 117/78 97 Room Air 06/23/16 16:03 36.5 89 18 120/83 98 Room Air 06/23/16 16:00 Room Air 06/23/16 14:40 36.9 85 18 132/80 97 Room Air 06/23/16 14:05 79 18 137/83 98 Room Air 06/23/16 13:50 80 18 122/74 98 Room Air 06/23/16 13:35 79 16 97/54 97 Mask 5 06/23/16 12:27 36.9 91 18 122/82 95 Room Air 06/23/16 12:05 36.9 82 18 115/80 96 Room Air Physical Exam General Appearance: WD/WN, no apparent distress, + obese Eyes: normal inspection, sclerae normal Neck: trachea midline Respiratory/Chest: normal breath sounds, no respiratory distress, no accessory muscle use Cardiovascular: regular rate, rhythm, no edema, no gallop, no murmur Abdomen: normal bowel sounds, soft, + tenderness (epigastric and periumbilical reigon w/o guarding or rebound) Extremities: non-tender, normal inspection, no pedal edema, no calf tenderness Neurologic/Psychiatric: alert, normal mood/affect, oriented x 3 Skin: normal color, warm/dry, no rash Laboratory Results Last 24 Hours Test 06/24/16 06:43 White Blood Count 5.54 K/uL Red Blood Count 3.25 M/uL Hemoglobin 12.2 g/dL Hematocrit 36.0 % Mean Corpuscular Volume 110.8 fL Mean Corpuscular Hemoglobin 37.5 pg Mean Corpuscular Hemoglobin Concent 33.9 g/dl RDW Standard Deviation 58.4 fL RDW Coefficient of Variation 14.5 % Platelet Count 244 K/uL Mean Platelet Volume 9.8 fL Sodium Level 146 mmol/L Potassium Level 3.3 mmol/L Chloride Level 113 mmol/L Carbon Dioxide Level 25 mmol/L Anion Gap 8.0 mmol/L Blood Urea Nitrogen 4 mg/dl Creatinine 0.93 mg/dl Est Creatinine Clear Calc Drug Dose 81.2 ml/min Estimated GFR () 82.5 Estimated GFR (Non- 71.2 BUN/Creatinine Ratio 4.2 Random Glucose 106 mg/dl Calcium Level 7.4 mg/dl Magnesium Level 1.7 mg/dl Total Bilirubin 0.8 mg/dl Aspartate Amino Transf (AST/SGOT) 59 U/L Alanine Aminotransferase (ALT/SGPT) 61 U/L Alkaline Phosphatase 105 U/L Total Protein 5.4 gm/dl Albumin 2.7 gm/dl Globulin 2.7 gm/dl Albumin/Globulin Ratio 1.0 Assessment and Plan 51 y/o female with a history of HTN, alcohol abuse, IBS-D, fatty liver, and one previous episode of ETOH-related pancreatitis about 1 month ago presents with abdominal pain, N/V, found to have acuteEtOH pancreatitis. CT reveals pancreatic inflammation consistent with acute pancreatitis. Labs are notable for an elevated lipase and hypokalemia. The pt states she has not had ETOH since a diagnosis of pancreatitis one month earlier and has not suffered withdrawal. Abdominal pain, intractable N/V- pain secondary to combination Acute ETOH pancreatitis and severe gastritis/duodenitis--> improved from admission, some pain with clears but tomato based soup may be exacerbating the gastritis. Prealbumin and triglycerides within normal limits -continue IVFs -Continue pain control with IV Dilaudid -Zofran 4 mg IV q6h prn nausea -continue clears today and avoid tomato based foods -possible dc tomorrow if improving -continue PPI, carafate -counseled on smoking cessation and EtOH abstinence, declines EtOH rehab -encouraged ambulation -for rectal bleeding-just had colonoscopy 1 yr ago that was normal -f/u with GI as outpt Hypokalemia, hypomagnesemia--Potassium 2.8 upon arrival, imroved but remains low due to poor po intake -continue repletion po and in IVFs -Hold HCTZ. 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 HTN--stable -Hold HCTZ for hypokalemia -Continue losartan 50 mg PO qd DVT prophylaxis -Heparin 5000 units SC q8h
[2016-06-24] MEDS ORDERED: POTASSIUM CHLORIDE 10 MEQ TABCR PO ONE (11:30)
[2016-06-24] MEDS ORDERED: MAGNESIUM SULFATE 1GM / D5W 1 GM in PREMIXED IN D5W 100 ML IV ONE (11:30)
[2016-06-24 15:24] VITALS: BP 138/94; PULSE 91; TEMP 36.9; O2SAT 99
[2016-06-24 16:10] VITALS: O2SAT 99
[2016-06-24] MEDS: ZOLPIDEM TARTRATE 5 MG TAB PO PRN (23:37)
[2016-06-25] MEDS: LORAZEPAM INJ 1 MG in SYRINGE 0.5 ML IV PRN (00:14)
[2016-06-25 00:16] VITALS: BP 134/90; PULSE 94; TEMP 36.9; O2SAT 99
[2016-06-25] MEDS: D5NSS + 20MEQ KCL 1,000 ML IV SCH ×4 (02:16→21:26)
[2016-06-25] MEDS: SUCRALFATE 1 GM/10 ML UDC PO SCH ×4 (05:41→21:26)
[2016-06-25] MEDS: HEPARIN SOD 5000 UNIT/0.5 ML CARP SQ SCH ×3 (05:44→21:30)
[2016-06-25 07:37] LABS: HEMATOCRIT 34.9 % (37-47); MEAN CELL VOLUME 109.7 fL (80-100); MEAN CORPUSCULAR HEMOGLOBIN 37.7 pg (25-34); MEAN CORPUSCULAR HGB CONC 34.4 g/dl (32-36); MEAN PLATELET VOLUME 10.1 fL (7.4-10.4); PLATELET COUNT 280 K/uL (130-400); RED BLOOD COUNT 3.18 M/uL (4.2-5.4)
[2016-06-25 08:00] VITALS: O2SAT 98
[2016-06-25 08:01] VITALS: BP 135/89; PULSE 75; TEMP 36.9; O2SAT 98
[2016-06-25 08:10] LABS: BUN/CREATININE RATIO 3.7 (10-20); CALCIUM 7.4 mg/dl (8.5-10.1); CREATININE 0.86 mg/dl (0.60-1.20); MAGNESIUM 1.4 mg/dl (1.8-2.4); POTASSIUM 3.6 mmol/L (3.5-5.1)
[2016-06-25 08:13] LABS: ALB/GLOB RATIO 0.9 (0.9-2)
[2016-06-25] MEDS: IPRATROPIUM BROMIDE/ALBUTEROL respimat INH INH SCH ×4 (08:58→21:26)
[2016-06-25] MEDS: PANTOprazole SOD 40 MG TAB PO SCH (08:59)
[2016-06-25] MEDS: LOSARTAN POTASSIUM 50 MG TAB PO SCH (08:59)
[2016-06-25] MEDS: THIAMINE HCL 100 MG TAB PO SCH (08:59)
[2016-06-25] MEDS: HYDROmorphone INJ 1 MG/ML SYR IV PRN ×4 (09:00→21:28)
[2016-06-25] MEDS: NICOTINE 21 MG/24 HR TDSY TD SCH (09:00)
[2016-06-25] MEDS ORDERED: POTASSIUM CHLORIDE 10 MEQ TABCR PO ONE (09:45)
[2016-06-25] MEDS: MAGNESIUM SULFATE 1GM / D5W 1 GM in PREMIXED IN D5W 100 ML IV SCH ×2 (09:47→11:30)
[2016-06-25 15:31] VITALS: BP 126/85; PULSE 71; TEMP 37.1; O2SAT 98
[2016-06-25 16:45] VITALS: O2SAT 99
--- NOTE | 2016-06-25 18:24 | Hospitalist Progress Note ---
Hospitalist Progress Note Date of Service Jun 25, 2016. Subjective Pt evaluation today including: conversation w/ patient, physical exam, lab review, review of inpatient medication list Still with 8/10 abd pain, doesn't like the clears diet, says alannah makes her want to gag. Has not ambulated as says zehra never returned to help her yesterday Constitutional: No fever Respiratory: No shortness of breath Abdomen: + pain All Other Systems: Reviewed and Negative Objective Vital Signs Date Time Temp Pulse Resp B/P Pulse Ox O2 Delivery O2 Flow Rate FiO2 06/25/16 15:31 37.1 71 18 126/85 98 Room Air 06/25/16 08:01 36.9 75 18 135/89 98 Room Air 06/25/16 08:00 98 Room Air 06/25/16 00:16 36.9 94 18 134/90 99 Room Air 06/25/16 00:00 Room Air Physical Exam General Appearance: WD/WN, no apparent distress Eyes: sclerae normal, + pertinent finding (mild periorbital ecchymosis yellow- purple OD) ENT: hearing grossly normal Neck: trachea midline Respiratory/Chest: lungs clear, normal breath sounds, no respiratory distress, no accessory muscle use Cardiovascular: regular rate, rhythm, no edema, no gallop, no murmur Abdomen: normal bowel sounds, soft, + tenderness (epigastric region and periumbilical region w/o guarding or rebound, less tender today) Extremities: non-tender, normal inspection, no pedal edema, no calf tenderness Neurologic/Psychiatric: alert, normal mood/affect, oriented x 3 Skin: normal color, warm/dry, no rash Laboratory Results Last 24 Hours Test 06/25/16 06:53 White Blood Count 6.90 K/uL Red Blood Count 3.18 M/uL Hemoglobin 12.0 g/dL Hematocrit 34.9 % Mean Corpuscular Volume 109.7 fL Mean Corpuscular Hemoglobin 37.7 pg Mean Corpuscular Hemoglobin Concent 34.4 g/dl RDW Standard Deviation 57.0 fL RDW Coefficient of Variation 14.2 % Platelet Count 280 K/uL Mean Platelet Volume 10.1 fL Sodium Level 145 mmol/L Potassium Level 3.6 mmol/L Chloride Level 113 mmol/L Carbon Dioxide Level 23 mmol/L Anion Gap 9.0 mmol/L Blood Urea Nitrogen 3 mg/dl Creatinine 0.86 mg/dl Est Creatinine Clear Calc Drug Dose 87.8 ml/min Estimated GFR () 90.7 Estimated GFR (Non- 78.2 BUN/Creatinine Ratio 3.7 Random Glucose 109 mg/dl Calcium Level 7.4 mg/dl Magnesium Level 1.4 mg/dl Total Bilirubin 1.0 mg/dl Aspartate Amino Transf (AST/SGOT) 53 U/L Alanine Aminotransferase (ALT/SGPT) 59 U/L Alkaline Phosphatase 110 U/L Total Protein 5.3 gm/dl Albumin 2.5 gm/dl Globulin 2.8 gm/dl Albumin/Globulin Ratio 0.9 Lipase 145 U/L Assessment and Plan 51 y/o female with a history of HTN, alcohol abuse, IBS-D, fatty liver, and one previous episode of ETOH-related pancreatitis about 1 month ago presents with abdominal pain, N/V, found to have acute EtOH pancreatitis. CT reveals pancreatic inflammation consistent with acute pancreatitis. Labs are notable for an elevated lipase and hypokalemia. The pt states she has not had ETOH since a diagnosis of pancreatitis one month earlier and has not suffered withdrawal. Abdominal pain, intractable N/V- pain secondary to combination Acute ETOH pancreatitis and severe gastritis/duodenitis--> improved from admission, some pain with clears however I think her pain is more from the gastritis than the pancreatitis at this point. EGD showed severe gastritis and duodenitis Prealbumin and triglycerides within normal limits despire little po intake over the last 1-2 weeks -continue IVFs -Continue pain control with IV Dilaudid -Zofran 4 mg IV q6h prn nausea -adv diet to full liquids today to see if appeals to her more -continue PPI, carafate -counseled on smoking cessation and EtOH abstinence, declines EtOH rehab -encouraged ambulation and d/w RN -for rectal bleeding-just had colonoscopy 1 yr ago that was normal -f/u with GI as outpt Hypokalemia, hypomagnesemia--Potassium 2.8 upon arrival, improved now to 3.6 but remains low due to poor po intake; Mg++ 1.4 today -continue repletion po and in IVFs -Holding HCTZ. 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 HTN--stable -Hold HCTZ for hypokalemia -Continue losartan 50 mg PO qd DVT prophylaxis -Heparin 5000 units SC q8h
[2016-06-25] MEDS: ZOLPIDEM TARTRATE 5 MG TAB PO PRN (21:28)
[2016-06-26 00:39] VITALS: BP 139/94; PULSE 88; TEMP 37.1; O2SAT 99
[2016-06-26] MEDS: HYDROmorphone INJ 1 MG/ML SYR IV PRN ×7 (00:48→23:38)
[2016-06-26] MEDS: D5NSS + 20MEQ KCL 1,000 ML IV SCH ×4 (03:55→23:52)
[2016-06-26] MEDS: SUCRALFATE 1 GM/10 ML UDC PO SCH ×4 (05:38→20:16)
[2016-06-26] MEDS: HEPARIN SOD 5000 UNIT/0.5 ML CARP SQ SCH ×3 (05:39→20:18)
[2016-06-26 07:10] VITALS: BP 119/59; PULSE 77; TEMP 37; O2SAT 97
[2016-06-26 07:10] LABS: HEMATOCRIT 37.8 % (37-47); MEAN CELL VOLUME 111.8 fL (80-100); MEAN CORPUSCULAR HEMOGLOBIN 38.5 pg (25-34); MEAN CORPUSCULAR HGB CONC 34.4 g/dl (32-36); MEAN PLATELET VOLUME 10.2 fL (7.4-10.4); PLATELET COUNT 304 K/uL (130-400); RED BLOOD COUNT 3.38 M/uL (4.2-5.4); WHITE BLOOD COUNT 6.64 K/uL (4.8-10.8)
[2016-06-26 07:34] LABS: BUN/CREATININE RATIO 2.4 (10-20); CREATININE 0.75 mg/dl (0.60-1.20); MAGNESIUM 1.5 mg/dl (1.8-2.4)
[2016-06-26 07:37] LABS: ALB/GLOB RATIO 0.8 (0.9-2)
[2016-06-26] MEDS ORDERED: MAGNESIUM SULFATE 1GM / D5W 1 GM in PREMIXED IN D5W 100 ML IV ONE (08:15)
[2016-06-26] MEDS: IPRATROPIUM BROMIDE/ALBUTEROL respimat INH INH SCH ×4 (08:28→20:16)
[2016-06-26] MEDS: THIAMINE HCL 100 MG TAB PO SCH (08:29)
[2016-06-26] MEDS: NICOTINE 21 MG/24 HR TDSY TD SCH (08:29)
[2016-06-26] MEDS: LOSARTAN POTASSIUM 50 MG TAB PO SCH (08:30)
[2016-06-26] MEDS: PANTOprazole SOD 40 MG TAB PO SCH (08:30)
[2016-06-26] MEDS: ONDANSETRON INJ 2 MG/ML 2 ML VIAL IV PRN (08:36)
--- NOTE | 2016-06-26 09:49 | Hospitalist Progress Note ---
Hospitalist Progress Note Date of Service Jun 26, 2016. Subjective Pt evaluation today including: conversation w/ patient, physical exam, chart review, lab review, review of studies, review of inpatient medication list Voiding: no voiding problems, no incontinence Patient not feeling well this AM. +nausea and vomiting x1. +mid abdominal discomfort- controlled with IV pain medication. Patient denies any fever, chills , sweats, lightheadedness, dizziness, vision changes, CP, palpitations, edema, SOB, wheezing, cough, diarrhea, urinary symptoms, melena, numbness/tingling, weakness, muscle/joint pain, anxiety/depression, active bleeding, or new skin discoloration/changes. Medications Current Inpatient Medications Medications (Trade) Dose Ordered Sig/Razia Route Start Time Stop Time Status Last Admin Dose Admin Albuterol/ Ipratropium (Combivent Respimat Inh) 2 puffs QID INH 06/21/16 21:00 07/21/16 20:59 06/26/16 08:28 2 PUFFS Losartan Potassium (coZAAR TAB) 50 mg DAILY PO 06/22/16 09:00 07/22/16 08:59 06/26/16 08:30 50 MG Heparin Sodium (Porcine) (Heparin Sq 5000 Unit/0.5ml) 5,000 unit Q8H SQ 06/21/16 22:00 07/21/16 21:59 06/26/16 05:39 5,000 UNIT Acetaminophen (Tylenol Tab) 650 mg Q4H PRN PO 06/21/16 20:45 07/21/16 20:44 Al Hydrox/Mg Hydrox/Simethicone (Maalox Max Susp) 15 ml Q4H PRN PO 06/21/16 20:45 07/21/16 20:44 Magnesium Hydroxide (Milk Of Magnesia Susp) 30 ml Q6H PRN PO 06/21/16 20:45 07/21/16 20:44 Polyethylene (Miralax Powder Packet) 17 gm DAILY PRN PO 06/21/16 20:45 07/21/16 20:44 Zolpidem Tartrate (Ambien Tab) 5 mg HSZ PRN PO 06/21/16 20:45 07/21/16 20:44 06/25/16 21:28 5 MG Ondansetron HCl (Zofran Inj) 4 mg Q6H PRN IV 06/21/16 20:45 07/21/16 20:44 06/26/16 08:36 4 MG Hydromorphone HCl (Dilaudid Inj) 1 mg Q3H PRN IV 06/21/16 20:45 07/05/16 20:44 06/26/16 08:24 1 MG Thiamine HCl (Vitamin B-1 Tab) 100 mg QAM PO 06/22/16 09:00 07/22/16 08:59 06/26/16 08:29 100 MG Folic Acid (Folvite Tab) 1 mg QAM PO 06/22/16 09:00 07/22/16 08:59 06/26/16 08:29 1 MG Nicotine (Nicoderm Cq 21MG Patch) 1 patch QAM TD 06/21/16 22:30 07/21/16 22:29 06/26/16 08:29 1 PATCH Miscellaneous 1 ea 1 ea HS N/A 06/22/16 21:00 07/22/16 20:59 06/25/16 21:26 1 EA Lorazepam 1 mg/ Syringe 1 ml @ 1 mls/min Q3H PRN IV 06/21/16 22:30 07/21/16 22:29 06/25/16 00:14 1 MLS/MIN Potassium Chloride/Dextrose/ Sod Cl (D5nss + 20meq KCl) 1,000 ml @ 150 mls/hr Q6H40M IV 06/23/16 09:45 07/23/16 09:44 06/26/16 03:55 150 MLS/HR Sucralfate (Carafate Susp) 1 gm ACHS PO 06/23/16 16:30 07/23/16 16:29 06/26/16 05:38 1 GM Pantoprazole Sodium (Protonix Tab) 40 mg QAM PO 06/24/16 09:00 07/24/16 08:59 06/26/16 08:30 40 MG Objective Vital Signs Date Time Temp Pulse Resp B/P Pulse Ox O2 Delivery O2 Flow Rate FiO2 06/26/16 07:10 37.0 77 18 119/59 97 Room Air 06/26/16 00:39 37.1 88 18 139/94 99 Room Air 06/25/16 23:35 Room Air 06/25/16 16:45 99 Room Air 06/25/16 15:31 37.1 71 18 126/85 98 Room Air Physical Exam General Appearance: no apparent distress Eyes: normal inspection, PERRL, + pertinent finding (bruising under R orbit ) ENT: hearing grossly normal Neck: supple Respiratory/Chest: lungs clear, no respiratory distress, no accessory muscle use Cardiovascular: regular rate, rhythm Abdomen: normal bowel sounds, soft, + tenderness (mild ttp of epigastric/mid- abodminal region ) Extremities: no pedal edema, no calf tenderness Neurologic/Psychiatric: alert, oriented x 3, + pertinent finding (anxious/ tearful ) Skin: normal color, warm/dry, no rash Laboratory Results Last 24 Hours Test 06/26/16 06:38 White Blood Count 6.64 K/uL Red Blood Count 3.38 M/uL Hemoglobin 13.0 g/dL Hematocrit 37.8 % Mean Corpuscular Volume 111.8 fL Mean Corpuscular Hemoglobin 38.5 pg Mean Corpuscular Hemoglobin Concent 34.4 g/dl RDW Standard Deviation 58.1 fL RDW Coefficient of Variation 14.2 % Platelet Count 304 K/uL Mean Platelet Volume 10.2 fL Sodium Level 145 mmol/L Potassium Level 4.0 mmol/L Chloride Level 109 mmol/L Carbon Dioxide Level 26 mmol/L Anion Gap 10.0 mmol/L Blood Urea Nitrogen 2 mg/dl Creatinine 0.75 mg/dl Est Creatinine Clear Calc Drug Dose 100.7 ml/min Estimated GFR () 107.0 Estimated GFR (Non- 92.3 BUN/Creatinine Ratio 2.4 Random Glucose 117 mg/dl Calcium Level 8.0 mg/dl Magnesium Level 1.5 mg/dl Total Bilirubin 1.2 mg/dl Aspartate Amino Transf (AST/SGOT) 41 U/L Alanine Aminotransferase (ALT/SGPT) 56 U/L Alkaline Phosphatase 116 U/L Total Protein 5.7 gm/dl Albumin 2.5 gm/dl Globulin 3.2 gm/dl Albumin/Globulin Ratio 0.8 Assessment and Plan 51 y/o female with a history of HTN, alcohol abuse, IBS-D, fatty liver, and one previous episode of ETOH-related pancreatitis about 1 month ago presents with abdominal pain, N/V, found to have acute EtOH pancreatitis. CT reveals pancreatic inflammation consistent with acute pancreatitis. Labs are notable for an elevated lipase and hypokalemia. The pt states she has not had ETOH since a diagnosis of pancreatitis one month earlier and has not suffered withdrawal. Abdominal pain, intractable N/V- pain secondary to combination acute ETOH pancreatitis and severe gastritis/duodenitis shown on EGD: - IVF - Continue pain control with IV Dilaudid - Zofran 4 mg IV q6h PRN nausea - Diet advanced to full liquid on 06/25--> patient states she tolerated diet OK, 1 episode of emesis on 3/6 AM - Counseled on smoking cessation and EtOH abstinence--> declines EtOH rehab - Continue PPI and Carafate - For rectal bleeding- just had colonoscopy 1 yr ago that was normal - f/u with GI as outpt - U/A negative - Pending EGD biopsy results Hypokalemia, hypomagnesemia: - Replete PRN - Holding HCTZ. 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 Hopefully continues to advance diet well with discharge within the next 1-2 days
[2016-06-26 12:17] VITALS: BP 117/83; PULSE 90; TEMP 37.1; O2SAT 96
[2016-06-26 14:40] VITALS: BP 123/88; PULSE 77; TEMP 37.1; O2SAT 97
[2016-06-26] MEDS: ZOLPIDEM TARTRATE 5 MG TAB PO PRN (23:38)
[2016-06-26] MEDS: LORAZEPAM INJ 1 MG in SYRINGE 0.5 ML IV PRN (23:47)
[2016-06-27] VITALS: O2SAT 97
[2016-06-27 00:10] VITALS: BP 135/92; PULSE 90; TEMP 37.3; O2SAT 99
[2016-06-27] MEDS: HYDROmorphone INJ 1 MG/ML SYR IV PRN ×2 (04:03→07:55)
[2016-06-27] MEDS: ONDANSETRON INJ 2 MG/ML 2 ML VIAL IV PRN (05:07)
[2016-06-27] MEDS: LORAZEPAM INJ 1 MG in SYRINGE 0.5 ML IV PRN ×3 (05:07→20:38)
[2016-06-27] MEDS: HEPARIN SOD 5000 UNIT/0.5 ML CARP SQ SCH ×3 (06:15→20:34)
[2016-06-27] MEDS: SUCRALFATE 1 GM/10 ML UDC PO SCH ×4 (06:17→20:29)
[2016-06-27] MEDS: D5NSS + 20MEQ KCL 1,000 ML IV SCH ×2 (06:24→15:29)
[2016-06-27 07:17] LABS: HEMATOCRIT 35.2 % (37-47); MEAN CELL VOLUME 108.6 fL (80-100); MEAN CORPUSCULAR HGB CONC 34.1 g/dl (32-36); PLATELET COUNT 289 K/uL (130-400); RED BLOOD COUNT 3.24 M/uL (4.2-5.4); WHITE BLOOD COUNT 7.16 K/uL (4.8-10.8)
[2016-06-27 07:26] VITALS: BP 133/88; PULSE 84; TEMP 36.6; O2SAT 97
[2016-06-27 07:55] LABS: CALCIUM 7.9 mg/dl (8.5-10.1); CREATININE 0.7 mg/dl (0.60-1.20); MAGNESIUM 1.4 mg/dl (1.8-2.4); POTASSIUM 3.8 mmol/L (3.5-5.1)
[2016-06-27 07:57] LABS: ALB/GLOB RATIO 0.9 (0.9-2)
[2016-06-27] MEDS: PANTOprazole SOD 40 MG TAB PO SCH (07:59)
[2016-06-27] MEDS: IPRATROPIUM BROMIDE/ALBUTEROL respimat INH INH SCH ×4 (08:00→20:29)
[2016-06-27] MEDS: NICOTINE 21 MG/24 HR TDSY TD SCH (08:00)
[2016-06-27] MEDS: LOSARTAN POTASSIUM 50 MG TAB PO SCH (08:01)
[2016-06-27] MEDS: THIAMINE HCL 100 MG TAB PO SCH (08:01)
[2016-06-27] MEDS: MAGNESIUM SULFATE 1GM / D5W 1 GM in PREMIXED IN D5W 100 ML IV SCH ×2 (08:40→10:48)
--- NOTE | 2016-06-27 11:10 | Hospitalist Progress Note ---
Hospitalist Progress Note Date of Service Jun 27, 2016. Subjective Pt evaluation today including: conversation w/ patient, physical exam, chart review, lab review, review of inpatient medication list Voiding: no voiding problems, no incontinence Patient still admits to abdominal discomfort. Tolerated full liquid diet well yesterday. Patient is requesting full diet--> will advance as tolerated. + emesis x1 this AM. Patient denies any fever, chills, sweats, lightheadedness, dizziness, vision changes, CP, palpitations, edema, SOB, wheezing, cough, diarrhea, urinary symptoms, melena, numbness/tingling, weakness, muscle/joint pain, depression, active bleeding, or new skin discoloration/changes. Medications Current Inpatient Medications Medications (Trade) Dose Ordered Sig/Razia Route Start Time Stop Time Status Last Admin Dose Admin Albuterol/ Ipratropium (Combivent Respimat Inh) 2 puffs QID INH 06/21/16 21:00 07/21/16 20:59 06/27/16 08:00 2 PUFFS Losartan Potassium (coZAAR TAB) 50 mg DAILY PO 06/22/16 09:00 07/22/16 08:59 06/27/16 08:01 50 MG Heparin Sodium (Porcine) (Heparin Sq 5000 Unit/0.5ml) 5,000 unit Q8H SQ 06/21/16 22:00 07/21/16 21:59 06/27/16 06:15 5,000 UNIT Acetaminophen (Tylenol Tab) 650 mg Q4H PRN PO 06/21/16 20:45 07/21/16 20:44 Al Hydrox/Mg Hydrox/Simethicone (Maalox Max Susp) 15 ml Q4H PRN PO 06/21/16 20:45 07/21/16 20:44 Magnesium Hydroxide (Milk Of Magnesia Susp) 30 ml Q6H PRN PO 06/21/16 20:45 07/21/16 20:44 Polyethylene (Miralax Powder Packet) 17 gm DAILY PRN PO 06/21/16 20:45 07/21/16 20:44 Zolpidem Tartrate (Ambien Tab) 5 mg HSZ PRN PO 06/21/16 20:45 07/21/16 20:44 06/26/16 23:38 5 MG Ondansetron HCl (Zofran Inj) 4 mg Q6H PRN IV 06/21/16 20:45 07/21/16 20:44 06/27/16 05:07 4 MG Hydromorphone HCl (Dilaudid Inj) 1 mg Q3H PRN IV 06/21/16 20:45 07/05/16 20:44 06/27/16 07:55 1 MG Thiamine HCl (Vitamin B-1 Tab) 100 mg QAM PO 06/22/16 09:00 07/22/16 08:59 06/27/16 08:01 100 MG Folic Acid (Folvite Tab) 1 mg QAM PO 06/22/16 09:00 07/22/16 08:59 06/27/16 07:59 1 MG Nicotine (Nicoderm Cq 21MG Patch) 1 patch QAM TD 06/21/16 22:30 07/21/16 22:29 06/27/16 08:00 1 PATCH Miscellaneous 1 ea 1 ea HS N/A 06/22/16 21:00 07/22/16 20:59 06/26/16 20:16 1 EA Lorazepam 1 mg/ Syringe 1 ml @ 1 mls/min Q3H PRN IV 06/21/16 22:30 07/21/16 22:29 06/27/16 10:08 1 MLS/MIN Potassium Chloride/Dextrose/ Sod Cl (D5nss + 20meq KCl) 1,000 ml @ 75 mls/hr [id number] IV 06/23/16 09:45 07/27/16 09:44 06/27/16 06:24 150 MLS/HR Sucralfate (Carafate Susp) 1 gm ACHS PO 06/23/16 16:30 07/23/16 16:29 06/27/16 10:48 1 GM Pantoprazole Sodium (Protonix Tab) 40 mg QAM PO 06/24/16 09:00 07/24/16 08:59 06/27/16 07:59 40 MG Objective Vital Signs Date Time Temp Pulse Resp B/P Pulse Ox O2 Delivery O2 Flow Rate FiO2 06/27/16 07:26 36.6 84 16 133/88 97 Room Air 06/27/16 00:10 37.3 90 16 135/92 99 Room Air 06/27/16 00:00 97 Room Air 06/26/16 15:40 Room Air 06/26/16 14:40 37.1 77 20 123/88 97 Room Air 06/26/16 12:17 37.1 90 19 117/83 96 Room Air Physical Exam General Appearance: no apparent distress Eyes: normal inspection, PERRL ENT: hearing grossly normal Neck: supple Respiratory/Chest: lungs clear, no respiratory distress, no accessory muscle use Cardiovascular: regular rate, rhythm Abdomen: normal bowel sounds, soft, + tenderness (mild ttp epigastric region ) Extremities: no pedal edema, no calf tenderness Neurologic/Psychiatric: alert, oriented x 3, + pertinent finding (anxious/ tearful ) Skin: normal color, warm/dry, no rash Laboratory Results Last 24 Hours Test 06/27/16 07:03 White Blood Count 7.16 K/uL Red Blood Count 3.24 M/uL Hemoglobin 12.0 g/dL Hematocrit 35.2 % Mean Corpuscular Volume 108.6 fL Mean Corpuscular Hemoglobin 37.0 pg Mean Corpuscular Hemoglobin Concent 34.1 g/dl RDW Standard Deviation 55.4 fL RDW Coefficient of Variation 13.9 % Platelet Count 289 K/uL Mean Platelet Volume 10.0 fL Sodium Level 144 mmol/L Potassium Level 3.8 mmol/L Chloride Level 109 mmol/L Carbon Dioxide Level 25 mmol/L Anion Gap 10.0 mmol/L Blood Urea Nitrogen 3 mg/dl Creatinine 0.70 mg/dl Est Creatinine Clear Calc Drug Dose 107.9 ml/min Estimated GFR () 116.3 Estimated GFR (Non- 100.3 BUN/Creatinine Ratio 4.0 Random Glucose 115 mg/dl Calcium Level 7.9 mg/dl Magnesium Level 1.4 mg/dl Total Bilirubin 1.1 mg/dl Aspartate Amino Transf (AST/SGOT) 22 U/L Alanine Aminotransferase (ALT/SGPT) 44 U/L Alkaline Phosphatase 97 U/L Total Protein 5.2 gm/dl Albumin 2.4 gm/dl Globulin 2.8 gm/dl Albumin/Globulin Ratio 0.9 Assessment and Plan 51 y/o female with a history of HTN, alcohol abuse, IBS-D, fatty liver, and one previous episode of ETOH-related pancreatitis about 1 month ago presents with abdominal pain, N/V, found to have acute EtOH pancreatitis. CT reveals pancreatic inflammation consistent with acute pancreatitis. Labs are notable for an elevated lipase and hypokalemia. The pt states she has not had ETOH since a diagnosis of pancreatitis one month earlier and has not suffered withdrawal. Abdominal pain, intractable N/V- pain secondary to combination acute ETOH pancreatitis and severe gastritis/duodenitis shown on EGD: - IVF-- will d/c once tolerating full diet - Pain control with IV Dilaudid--> hold Dilaudid for goal of d/c on 06/28, Oxycodone 5 mg PO q4 hrs PRN (patient states she has taken in past with good pain control) - Zofran 4 mg IV q6h PRN nausea - Advance diet as tolerated - Counseled on smoking cessation and EtOH abstinence--> declines EtOH rehab - Continue PPI and Carafate - For rectal bleeding- just had colonoscopy 1 yr ago that was normal - f/u with GI as outpt - U/A negative - EGD biopsy- A. SMALL BOWEL, DUODENUM, BIOPSIES: 1. BENIGN SMALL BOWEL MUCOSA WITHOUT PATHOLOGIC CHANGE. 2. NO ACTIVE DUODENITIS IDENTIFIED. 3. NEGATIVE FOR DYSPLASIA AND MALIGNANCY. B. STOMACH, BIOPSIES: 1. CHRONIC GASTRITIS, MILD. 2. NO ACUTE ACTIVITY NOTED. 3. IMMUNOHISTOCHEMICAL STAIN FOR H. PYLORI NEGATIVE 4. NO INTESTINAL METAPLASIA SEEN. 5. NEGATIVE FOR DYSPLASIA AND MALIGNANCY. Hypokalemia, hypomagnesemia: - Replete PRN - Holding HCTZ. 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
[2016-06-27] MEDS: OXYCODONE HCL IR 5 MG TAB (IMMEDIATE RELEASE) PO PRN ×3 (13:27→21:45)
[2016-06-27 15:34] VITALS: BP 120/74; PULSE 98; TEMP 36.8; O2SAT 98
[2016-06-27] MEDS: ZOLPIDEM TARTRATE 5 MG TAB PO PRN (23:49)
[2016-06-28 00:35] VITALS: BP 143/94; PULSE 87; TEMP 37.2; O2SAT 97
[2016-06-28] MEDS: OXYCODONE HCL IR 5 MG TAB (IMMEDIATE RELEASE) PO PRN ×5 (02:02→21:03)
[2016-06-28] MEDS: LORAZEPAM INJ 1 MG in SYRINGE 0.5 ML IV PRN ×4 (02:03→22:29)
[2016-06-28] MEDS: HEPARIN SOD 5000 UNIT/0.5 ML CARP SQ SCH ×3 (05:57→21:05)
[2016-06-28] MEDS: D5NSS + 20MEQ KCL 1,000 ML IV SCH (06:12)
[2016-06-28] MEDS: SUCRALFATE 1 GM/10 ML UDC PO SCH ×4 (06:12→21:05)
[2016-06-28 06:56] LABS: HEMATOCRIT 36.5 % (37-47); MEAN CELL VOLUME 109.3 fL (80-100); MEAN CORPUSCULAR HEMOGLOBIN 36.8 pg (25-34); MEAN CORPUSCULAR HGB CONC 33.7 g/dl (32-36); MEAN PLATELET VOLUME 10.2 fL (7.4-10.4); PLATELET COUNT 310 K/uL (130-400); RED BLOOD COUNT 3.34 M/uL (4.2-5.4); WHITE BLOOD COUNT 6.37 K/uL (4.8-10.8)
[2016-06-28 07:27] LABS: BUN/CREATININE RATIO 5.6 (10-20); CALCIUM 8.1 mg/dl (8.5-10.1); CREATININE 0.77 mg/dl (0.60-1.20); MAGNESIUM 1.9 mg/dl (1.8-2.4); POTASSIUM 3.8 mmol/L (3.5-5.1)
[2016-06-28 07:30] LABS: ALB/GLOB RATIO 0.8 (0.9-2)
[2016-06-28 07:57] VITALS: BP 134/92; PULSE 85; TEMP 36.5; O2SAT 97
[2016-06-28] MEDS: IPRATROPIUM BROMIDE/ALBUTEROL respimat INH INH SCH ×4 (08:35→21:05)
[2016-06-28] MEDS: PANTOprazole SOD 40 MG TAB PO SCH (08:35)
[2016-06-28] MEDS: THIAMINE HCL 100 MG TAB PO SCH (08:35)
[2016-06-28] MEDS: LOSARTAN POTASSIUM 50 MG TAB PO SCH (08:35)
[2016-06-28] MEDS: NICOTINE 21 MG/24 HR TDSY TD SCH (08:38)
--- NOTE | 2016-06-28 09:31 | Hospitalist Progress Note ---
Hospitalist Progress Note Date of Service Jun 28, 2016. Subjective Pt evaluation today including: conversation w/ patient, physical exam, chart review, lab review, review of inpatient medication list Voiding: no voiding problems, no incontinence Patient complains of 9/10 pain. She is very tearful/discouraged, feeling like she has made no progress over the last couple of days. She had a hamburger for dinner last night which exacerbated her pain. She did not eat breakfast due to pain. Patient denies any fever, chills, sweats, lightheadedness, dizziness, vision changes, CP, palpitations, edema, SOB, wheezing, cough, nausea, vomiting , diarrhea, urinary symptoms, melena, numbness/tingling, weakness, muscle/joint pain, depression, active bleeding, or new skin discoloration/changes. Medications Current Inpatient Medications Medications (Trade) Dose Ordered Sig/Razia Route Start Time Stop Time Status Last Admin Dose Admin Albuterol/ Ipratropium (Combivent Respimat Inh) 2 puffs QID INH 06/21/16 21:00 07/21/16 20:59 06/28/16 08:35 2 PUFFS Losartan Potassium (coZAAR TAB) 50 mg DAILY PO 06/22/16 09:00 07/22/16 08:59 06/28/16 08:35 50 MG Heparin Sodium (Porcine) (Heparin Sq 5000 Unit/0.5ml) 5,000 unit Q8H SQ 06/21/16 22:00 07/21/16 21:59 06/27/16 20:34 5,000 UNIT Acetaminophen (Tylenol Tab) 650 mg Q4H PRN PO 06/21/16 20:45 07/21/16 20:44 Al Hydrox/Mg Hydrox/Simethicone (Maalox Max Susp) 15 ml Q4H PRN PO 06/21/16 20:45 07/21/16 20:44 Magnesium Hydroxide (Milk Of Magnesia Susp) 30 ml Q6H PRN PO 06/21/16 20:45 07/21/16 20:44 06/27/16 15:40 30 ML Polyethylene (Miralax Powder Packet) 17 gm DAILY PRN PO 06/21/16 20:45 07/21/16 20:44 Zolpidem Tartrate (Ambien Tab) 5 mg HSZ PRN PO 06/21/16 20:45 07/21/16 20:44 06/27/16 23:49 5 MG Ondansetron HCl (Zofran Inj) 4 mg Q6H PRN IV 06/21/16 20:45 07/21/16 20:44 06/27/16 05:07 4 MG Hydromorphone HCl (Dilaudid Inj) 1 mg Q3H PRN IV 06/21/16 20:45 07/05/16 20:44 Future Hold 06/27/16 07:55 1 MG Thiamine HCl (Vitamin B-1 Tab) 100 mg QAM PO 06/22/16 09:00 07/22/16 08:59 06/28/16 08:35 100 MG Folic Acid (Folvite Tab) 1 mg QAM PO 06/22/16 09:00 07/22/16 08:59 06/28/16 08:35 1 MG Nicotine (Nicoderm Cq 21MG Patch) 1 patch QAM TD 06/21/16 22:30 07/21/16 22:29 06/27/16 08:00 1 PATCH Miscellaneous 1 ea 1 ea HS N/A 06/22/16 21:00 07/22/16 20:59 06/27/16 20:29 1 EA Lorazepam/Syringe (Ativan Inj/ Syringe) 1 ml @ 1 mls/min Q3H PRN IV 06/21/16 22:30 07/21/16 22:29 06/28/16 02:03 1 MLS/MIN Sucralfate (Carafate Susp) 1 gm ACHS PO 06/23/16 16:30 07/23/16 16:29 06/28/16 06:12 1 GM Pantoprazole Sodium (Protonix Tab) 40 mg QAM PO 06/24/16 09:00 07/24/16 08:59 06/28/16 08:35 40 MG Oxycodone HCl (Roxicodone Immediate Rel Tab) 5 mg Q4H PRN PO 06/27/16 12:30 07/11/16 12:29 06/28/16 08:34 5 MG Objective Vital Signs Date Time Temp Pulse Resp B/P Pulse Ox O2 Delivery O2 Flow Rate FiO2 06/28/16 07:57 36.5 85 16 134/92 97 Room Air 06/28/16 00:35 37.2 87 16 143/94 97 Room Air 06/28/16 00:00 Room Air 06/27/16 15:44 Room Air 06/27/16 15:34 36.8 98 16 120/74 98 Room Air Physical Exam General Appearance: no apparent distress Eyes: normal inspection, PERRL ENT: hearing grossly normal Neck: supple Respiratory/Chest: lungs clear, no respiratory distress, no accessory muscle use Cardiovascular: regular rate, rhythm Abdomen: normal bowel sounds, non tender, soft Extremities: no pedal edema, no calf tenderness Neurologic/Psychiatric: alert, oriented x 3, + pertinent finding (anxious/ tearful ) Skin: normal color, warm/dry, no rash Laboratory Results Last 24 Hours Test 06/28/16 06:30 White Blood Count 6.37 K/uL Red Blood Count 3.34 M/uL Hemoglobin 12.3 g/dL Hematocrit 36.5 % Mean Corpuscular Volume 109.3 fL Mean Corpuscular Hemoglobin 36.8 pg Mean Corpuscular Hemoglobin Concent 33.7 g/dl RDW Standard Deviation 55.9 fL RDW Coefficient of Variation 14.0 % Platelet Count 310 K/uL Mean Platelet Volume 10.2 fL Sodium Level 145 mmol/L Potassium Level 3.8 mmol/L Chloride Level 109 mmol/L Carbon Dioxide Level 28 mmol/L Anion Gap 8.0 mmol/L Blood Urea Nitrogen 4 mg/dl Creatinine 0.77 mg/dl Est Creatinine Clear Calc Drug Dose 98.1 ml/min Estimated GFR () 103.6 Estimated GFR (Non- 89.4 BUN/Creatinine Ratio 5.6 Random Glucose 106 mg/dl Calcium Level 8.1 mg/dl Magnesium Level 1.9 mg/dl Total Bilirubin 0.7 mg/dl Aspartate Amino Transf (AST/SGOT) 22 U/L Alanine Aminotransferase (ALT/SGPT) 42 U/L Alkaline Phosphatase 107 U/L Total Protein 5.4 gm/dl Albumin 2.4 gm/dl Globulin 3.0 gm/dl Albumin/Globulin Ratio 0.8 Assessment and Plan 51 y/o female with a history of HTN, alcohol abuse, IBS-D, fatty liver, and one previous episode of ETOH-related pancreatitis about 1 month ago presents with abdominal pain, N/V, found to have acute EtOH pancreatitis. CT reveals pancreatic inflammation consistent with acute pancreatitis. Labs are notable for an elevated lipase and hypokalemia. The pt states she has not had ETOH since a diagnosis of pancreatitis one month earlier and has not suffered withdrawal. Abdominal pain, intractable N/V- pain secondary to combination acute ETOH pancreatitis and severe gastritis/duodenitis shown on EGD: - IVF d/c'd - Pain control with IV Dilaudid--> hold Dilaudid, Oxycodone 5 mg PO q4 hrs PRN - Zofran 4 mg IV q6h PRN nausea - Advance diet as tolerated - Counseled on smoking cessation and EtOH abstinence--> declines EtOH rehab - Continue PPI and Carafate - For rectal bleeding- just had colonoscopy 1 yr ago that was normal - f/u with GI as outpt - U/A negative - EGD biopsy- A. SMALL BOWEL, DUODENUM, BIOPSIES: 1. BENIGN SMALL BOWEL MUCOSA WITHOUT PATHOLOGIC CHANGE. 2. NO ACTIVE DUODENITIS IDENTIFIED. 3. NEGATIVE FOR DYSPLASIA AND MALIGNANCY. B. STOMACH, BIOPSIES: 1. CHRONIC GASTRITIS, MILD. 2. NO ACUTE ACTIVITY NOTED. 3. IMMUNOHISTOCHEMICAL STAIN FOR H. PYLORI NEGATIVE 4. NO INTESTINAL METAPLASIA SEEN. 5. NEGATIVE FOR DYSPLASIA AND MALIGNANCY. Anxiety: Ativan PRN Insomnia: Ambien 5 mg PO HS PRN Hypokalemia, hypomagnesemia: - Replete PRN - Holding HCTZ. 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
[2016-06-28 10:00] VITALS: O2SAT 97
[2016-06-28 11:24] VITALS: O2SAT 97
[2016-06-28 15:58] VITALS: BP 117/83; PULSE 89; TEMP 37.1; O2SAT 98
[2016-06-28 16:25] VITALS: O2SAT 98
[2016-06-28] MEDS: ONDANSETRON INJ 2 MG/ML 2 ML VIAL IV PRN (17:22)
[2016-06-28] MEDS: ZOLPIDEM TARTRATE 5 MG TAB PO PRN (22:29)
[2016-06-29] VITALS: BP 131/86; PULSE 89; TEMP 37.2; O2SAT 97
[2016-06-29] MEDS: ZOLPIDEM TARTRATE 5 MG TAB PO PRN (00:15)
[2016-06-29] MEDS: OXYCODONE HCL IR 5 MG TAB (IMMEDIATE RELEASE) PO PRN ×2 (01:00→06:21)
[2016-06-29] MEDS: SUCRALFATE 1 GM/10 ML UDC PO SCH (06:20)
[2016-06-29] MEDS: HEPARIN SOD 5000 UNIT/0.5 ML CARP SQ SCH (06:41)
[2016-06-29 06:50] LABS: HEMATOCRIT 36.9 % (37-47); MEAN CELL VOLUME 110.8 fL (80-100); MEAN CORPUSCULAR HEMOGLOBIN 37.2 pg (25-34); MEAN CORPUSCULAR HGB CONC 33.6 g/dl (32-36); MEAN PLATELET VOLUME 10.6 fL (7.4-10.4); PLATELET COUNT 316 K/uL (130-400); RED BLOOD COUNT 3.33 M/uL (4.2-5.4); WHITE BLOOD COUNT 5.86 K/uL (4.8-10.8)
[2016-06-29 07:21] LABS: BUN/CREATININE RATIO 6.5 (10-20); CALCIUM 8.4 mg/dl (8.5-10.1); CREATININE 0.75 mg/dl (0.60-1.20); MAGNESIUM 1.7 mg/dl (1.8-2.4); POTASSIUM 3.6 mmol/L (3.5-5.1)
[2016-06-29 07:24] LABS: ALB/GLOB RATIO 0.8 (0.9-2)
[2016-06-29 08:00] VITALS: O2SAT 98
[2016-06-29 08:10] VITALS: BP 129/89; PULSE 86; TEMP 36.5; O2SAT 95
[2016-06-29] MEDS ORDERED: LORAZEPAM 0.5 MG TAB PO STA (08:29)
[2016-06-29] MEDS ORDERED: MAGNESIUM SULFATE 1GM / D5W 1 GM in PREMIXED IN D5W 100 ML IV ONE (08:30)
[2016-06-29] MEDS: IPRATROPIUM BROMIDE/ALBUTEROL respimat INH INH SCH (08:32)
[2016-06-29] MEDS: NICOTINE 21 MG/24 HR TDSY TD SCH (08:33)
[2016-06-29] MEDS: THIAMINE HCL 100 MG TAB PO SCH (08:33)
[2016-06-29] MEDS: PANTOprazole SOD 40 MG TAB PO SCH (08:33)
[2016-06-29] MEDS: LOSARTAN POTASSIUM 50 MG TAB PO SCH (08:33)
[2016-06-29] MEDS ORDERED: PRT40 PO (08:59)
[2016-06-29] MEDS ORDERED: ATV/1 PO (08:59)
[2016-06-29] MEDS ORDERED: ONDA4TAB65 PO (08:59)
[2016-06-29] MEDS ORDERED: CRFUDL PO (08:59)
[2016-06-29] MEDS ORDERED: MAGNESIUM OXIDE 400 MG TAB PO ONE (09:00)
[2016-06-29] MEDS ORDERED: OXYC1TAB3 PO (09:07)
--- NOTE | 2016-06-29 09:08 | Discharge Instructions ---
Discharge Instructions Date of Service Jun 29, 2016. Admission Reason for Admission: Hypokalemia, Pancreatitis, Acute Discharge Discharge Diagnosis / Problem: Pancreatitis; gastritis Discharge Goals Goal(s): Decrease discomfort, Improve function, Diagnostic testing, Therapeutic intervention, Prevent Disease Progression Activity Recommendations Activity Limitations: resume your previous activity . Instructions / Follow-Up Instructions / Follow-Up New/changed medications: 1. Protonix 40 mg by mouth once daily 2. Carafate 1 gm by mouth twice per day 3. Ativan 0.5 mg by mouth every 8 hours as needed for anxiety 4. Oxycodone 5 mg by mouth every 6 hours as needed for pain 5. Zofran 4 mg by mouth every 6 hours as needed for nausea 6. Effexor 37.5 mg by mouth once per day 7. STOP taking Hydrochlorothiazide 8. It is recommended you take a multivitamin daily Resume all other regular home medications as prescribed to you Continue to advance your diet slowly and as tolerated It is important you continue to avoid alcohol and smoking Please follow-up with your PCP within 5-7 days Please follow-up/keep all of your subspecialty appointments Current Hospital Diet Patient's current hospital diet: Low Fiber Diet Discharge Diet Recommended Diet: Regular Diet Procedures Procedures Performed: 1. EGD WITH BX 2. Abdominal/pelvic CT Pending Studies Studies pending at discharge: no Laboratory Results Lipid Panel Test 06/23/16 05:30 Range/Units Triglycerides Level 112 0-150 mg/dl Medical Emergencies . Who to Call and When: Medical Emergencies: If at any time you feel your situation is an emergency, please call 911 immediately. . Non-Emergent Contact Non-Emergency issues call your: Primary Care Provider Call Non-Emergent contact if: you have a fever, your pain is not controlled, your pain is worsening, your pain is unusual for you, your pain is concerning you, you have any medication questions . . "Provider Documentation" section prepared by Yokasta Lira. VTE Core Measure Inpt VTE Proph given/why not?: Unfractionated heparin SQ [place] Drug Monitoring Program Search Results: patient reviewed within database
[2016-06-29] MEDS ORDERED: EFFSR75 PO (09:09)
--- NOTE | 2016-06-29 09:19 | Discharge Summary ---
Discharge Summary Date of Service Jun 29, 2016. Discharge Summary Admission Date: Jun 21, 2016 at 20:40 Discharge Date: Jun 29, 2016 Discharge Disposition: Home Principal Diagnosis: Pancreatitis; gastritis; duodenitis Problems/Secondary Diagnoses: 1. Anxiety 2. Insomnia 3. Hypokalemia 4. Hypomagnesemia: 5. H/o alcohol abuse 6. HTN Immunizations: Have You Had Influenza Vaccine: No History of Tetanus Vaccine?: Yes History of Pneumococcal: No History of Hepatitis B Vaccine: No Hepatitis Immunization Date: Feb 06, 1990 Procedures: EGD: Findings: The examined esophagus was normal. The Z-line was regular and was found 38 cm from the incisors. Diffuse moderate inflammation characterized by congestion (edema), erythema and granularity was found in the entire examined stomach. Biopsies were taken with a cold forceps for histology. Estimated blood loss was minimal. Diffuse moderate inflammation characterized by congestion (edema), erythema and granularity was found in the duodenal bulb. Biopsies were taken with a cold forceps for histology. Estimated blood loss was minimal. The 2nd part of the duodenum and 3rd part of the duodenum were normal. Impression: - Normal esophagus. - Z-line regular, 38 cm from the incisors. - Gastritis and duodenitis likely related to medications or recent problems with pancreatitis. Biopsied. - Normal 2nd part of the duodenum and 3rd part of the duodenum. CT OF THE ABDOMEN AND PELVIS WITHOUT CONTRAST CLINICAL HISTORY: Upper abdominal pain. History of pancreatitis. COMPARISON STUDY: CT of the abdomen and pelvis May 16, 2016. TECHNIQUE: Axial images of the abdomen and pelvis were obtained without IV contrast. Images were reviewed in the axial, sagittal, and coronal planes. FINDINGS: Visualized portions of the lung lower lungs demonstrate stable calcified and noncalcified pulmonary nodules. There is fatty infiltration of the liver. A 2 cm hypodense right hepatic lobe lesion is unchanged since prior exams. The likely reflects a hemangioma. Stability indicates a benign lesion. Unenhanced images of the spleen, adrenal glands and kidneys are unremarkable. There is no hydronephrosis or hydroureter. There may be mild peripancreatic infiltration. There is mild dilatation of the common bile duct. This is unchanged and may be due to cholecystectomy. There is no evidence for a bowel obstruction. No free air, pneumatosis or portal venous gas is present. There is sigmoid diverticulosis without evidence for acute diverticulitis. Skeletal structures are unremarkable. IMPRESSION: 1. Suspected minimal peripancreatic infiltration. This suggests acute pancreatitis. 2. Fatty liver. 3. Mild biliary ductal dilatation. This is likely related to prior cholecystectomy but could be correlated with liver function tests. Electronically signed by: Vick Mcginnis M.D. 06/21/2016 7:07 PM Dictated Date/Time: 06/21/2016 6:56 PM The status of this report is Signed. Draft = Not yet reviewed or approved by Radiologist. Signed = Reviewed and approved by Radiologist. Consultations: GI- JORDY Pollack, Dr. Fields Medication Reconciliation New Medications: Lorazepam (Ativan) 1 Mg Tab 0.5 MG PO Q8H for 5 Days, #8 TAB Ondansetron Hcl (Zofran) 4 Mg Tab 4 MG PO Q6H for Nausea, #60 TAB Oxycodone Ir (Roxicodone Ir) 5 Mg Tab 5 MG PO Q6H PRN for Pain, #20 TAB Venlafaxine Hcl (Effexor Extended Rel) 75 Mg Capcr 75 MG PO DAILY for 14 Days, #14 CAP Pantoprazole (Pantoprazole Sodium) 40 Mg Tab 40 MG PO QAM for 30 Days, #30 TAB Sucralfate (Sucralfate) 1 Gm/10 Ml Susp 1 GM PO ACHS for 30 Days, #60 DOSE Continued Medications: Ipratropium-Albuterol (Combivent Respimat) 1 Aer Aer 1 PUFF PO QID Losartan Potassium (Losartan Potassium) 50 Mg Tab 50 MG PO DAILY Discontinued Medications: Chlordiazepoxide (Librium) 25 Mg Cap 25 MG PO TID PRN for anxiety, #20 CAP Hydrochlorothiazide (Hydrochlorothiazide) 25 Mg Tab 25 MG PO DAILY Ondansetron Hcl (Zofran) 4 Mg Tab 4 MG PO Q8H PRN for Nausea, #20 TAB Referrals At Discharge Follow up Referrals: Family Practice Referral - Within 1 Week with Jeb Burgess MD Discharge Exam Review of Systems: Constitutional: No chills, No fatigue, No fever, No sweats, No weakness Respiratory: No cough, No hemoptysis, No shortness of breath Cardiovascular: No chest pain, No edema, No palpitations Abdomen: + pain, No constipation, No diarrhea, No nausea, No vomiting Musculoskeletal: No calf pain, No joint pain, No muscle pain, No swelling Genitourinary - Female: No dysuria, No hematuria Neurologic: No numbness/tingling, No weakness Psychiatric: + anxiety, No depression symptoms Hematologic / Lymphatic: No abnormal bleeding/bruising Integumentary: No itch, No new/changing skin lesions, No rash Physical Exam: General Appearance: no apparent distress Eyes: normal inspection, PERRL ENT: hearing grossly normal Neck: supple Respiratory/Chest: lungs clear, no respiratory distress, no accessory muscle use Cardiovascular: regular rate, rhythm Abdomen / GI: normal bowel sounds, soft, + tenderness (mild ttp of epigastric region ) Extremities: no calf tenderness, no pedal edema Neurologic/Psychiatric: alert, oriented x 3, + pertinent finding (anxious ) Skin: normal color, warm/dry, no rash Hospital Course 51 y/o female with a history of HTN, alcohol abuse, IBS-D, fatty liver, and one previous episode of ETOH-related pancreatitis about 1 month ago presents with abdominal pain, N/V, found to have acute EtOH pancreatitis. CT reveals pancreatic inflammation consistent with acute pancreatitis. Labs are notable for an elevated lipase and hypokalemia. The pt states she has not had ETOH since a diagnosis of pancreatitis one month earlier and has not suffered withdrawal. Abdominal pain, intractable N/V- pain secondary to combination acute ETOH pancreatitis and severe gastritis/duodenitis shown on EGD: - IVF d/c'd - Pain control with IV Dilaudid--> hold Dilaudid, Oxycodone 5 mg PO q4 hrs PRN - Zofran 4 mg IV q6h PRN nausea - Advance diet as tolerated - Counseled on smoking cessation and EtOH abstinence--> declines EtOH rehab - Continue PPI and Carafate - For rectal bleeding- just had colonoscopy 1 yr ago that was normal - f/u with GI as outpt - U/A negative - EGD biopsy- A. SMALL BOWEL, DUODENUM, BIOPSIES: 1. BENIGN SMALL BOWEL MUCOSA WITHOUT PATHOLOGIC CHANGE. 2. NO ACTIVE DUODENITIS IDENTIFIED. 3. NEGATIVE FOR DYSPLASIA AND MALIGNANCY. B. STOMACH, BIOPSIES: 1. CHRONIC GASTRITIS, MILD. 2. NO ACUTE ACTIVITY NOTED. 3. IMMUNOHISTOCHEMICAL STAIN FOR H. PYLORI NEGATIVE 4. NO INTESTINAL METAPLASIA SEEN. 5. NEGATIVE FOR DYSPLASIA AND MALIGNANCY. Anxiety: Ativan PRN. Start Effexor 37.5 mg daily on 06/29 Insomnia: Ambien 5 mg PO HS PRN Hypokalemia, hypomagnesemia: - Replete PRN - Holding HCTZ. 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 Discharge Instructions Please refer to the electronic Patient Visit Report (Discharge Instructions) for additional information. Follow-Up Please follow-up with your PCP within 5-7 days Please follow-up/keep all of your subspecialty appointments Additional Copies To Jeb Burgess MD
[2016-06-29 10:54] VITALS: BP 129/89; PULSE 86; TEMP 36.5; O2SAT 95
[2016-10-13] MEDS ORDERED: VANC1CAP19 PO (11:47)
[2016-10-13] MEDS ORDERED: FLV1 PO (11:47)
[2016-10-13] MEDS ORDERED: CHLO25CA10 PO (11:47)
[2016-10-13] MEDS ORDERED: ULT50X PO (11:47)
[2016-10-13] MEDS ORDERED: MULT-589 PO (11:47)
[2016-10-13] MEDS ORDERED: ZNCS220 PO (11:47)
[2016-10-13] MEDS ORDERED: RANI150T3 PO (11:47)
[2016-10-13] MEDS ORDERED: THM100 PO (11:47)
[2016-10-13] MEDS ORDERED: LPR25 PO (11:47)
== END 2016-06-29 11:30 | disposition home or self-care (01) | DRG 391 ==
LOC: ENRESERVDT → ENRESERVTM → C.EDB 15:11 → C.MS2W 20:40
PROVIDERS: ADMIT Internal Medicine; ATTEND Internal Medicine
PROC: 0DB68ZX Excision of Stomach, Via Natural or Artificial Opening Endoscopic, Diagnostic (ICD-10-PCS; 2016-06-23)
PROC: 0DB98ZX Excision of Duodenum, Via Natural or Artificial Opening Endoscopic, Diagnostic (ICD-10-PCS; principal; 2016-06-23 12:22)
DX: K29.70 Gastritis, unspecified, without bleeding (principal); K85.20 Alcohol induced acute pancreatitis without necrosis or infection; K86.0 Alcohol-induced chronic pancreatitis; K29.80 Duodenitis without bleeding; E87.6 Hypokalemia; E83.42 Hypomagnesemia; E03.9 Hypothyroidism, unspecified; J45.909 Unspecified asthma, uncomplicated; F41.9 Anxiety disorder, unspecified; F17.200 Nicotine dependence, unspecified, uncomplicated; I10 Essential (primary) hypertension

== ENCOUNTER 2016-09-21 11:45 | Inpatient (IN) | payer OTHER ==
[~2016-09-21] VITALS: Ht 172.7 cm; Wt 84.4 kg
[~2016-09-21 11:45] MED LIST changes: -CHLO25CA10 PO; +CRFUDL PO; -HYDR25TA5 PO; -ONDA4TAB46 PO; +OXYC1TAB3 PO; +PRT40 PO
[2016-09-21] MEDS ORDERED: EFFSR75 PO (11:58)
[2016-09-21] MEDS ORDERED: DICYCLOMINE HCL 10 MG/ML 2 ML AMP IM STA (12:39)
[2016-09-21] MEDS ORDERED: SODIUM CHLORIDE 0.9% 1000ML 1,000 ML IV SCH (12:45)
[2016-09-21 12:51] LABS: BASO % 1.5 %; BASO ABS # 0.09 K/uL (0-0.2); EOS % 0.5 %; HEMATOCRIT 37.3 % (37-47); IG% 1.8 %; LYMPH % 16.4 %; LYMPH ABS # 1.01 K/uL (1.2-3.4); MEAN CELL VOLUME 102.2 fL (80-100); MEAN CORPUSCULAR HEMOGLOBIN 36.2 pg (25-34); MEAN CORPUSCULAR HGB CONC 35.4 g/dl (32-36); MEAN PLATELET VOLUME 10.8 fL (7.4-10.4); MONO % 15.6 %; NEUT % 64.2 %; PLATELET COUNT 235 K/uL (130-400); RED BLOOD COUNT 3.65 M/uL (4.2-5.4); WHITE BLOOD COUNT 6.14 K/uL (4.8-10.8)
--- NOTE | 2016-09-21 12:56 | DIAGNOSTIC IMAGING REPORT ---
CHEST ONE VIEW PORTABLE CLINICAL HISTORY: Epigastric abdominal pain. COMPARISON STUDY: Chest radiograph May 17, 2016. FINDINGS: Innumerable calcified nodules throughout the lungs are again noted. There is no pneumothorax or pleural effusion. Pulmonary vascularity is normal. Cardiac size is normal. No consolidation is identified to suggest pneumonia. There is no lucency under the hemidiaphragms on this study to indicate pneumoperitoneum. IMPRESSION: No acute cardiopulmonary findings. Electronically signed by: Vick Mcginnis M.D. 09/21/2016 12:55 PM Dictated Date/Time: 09/21/2016 12:54 PM
[2016-09-21 13:17] LABS: ALB/GLOB RATIO 0.9 (0.9-2); ALKALINE PHOSPHATASE 192 U/L (45-117); ALT/SGPT 114 U/L (12-78); AMYLASE 44 U/L (25-115); BLOOD UREA NITROGEN 7 mg/dl (7-18); BUN/CREATININE RATIO 7.7 (10-20); CARBON DIOXIDE 23 mmol/L (21-32); CHLORIDE 96 mmol/L (98-107); GLUCOSE 141 mg/dl (70-99); SODIUM 139 mmol/L (136-145)
[2016-09-21] MEDS: SODIUM CHLORIDE 0.9% 1000ML 1,000 ML IV ONE (13:30)
[2016-09-21 13:46] LABS: COMPLETE YES
[2016-09-21 13:56] LABS: MAGNESIUM 1.4 mg/dl (1.8-2.4); POTASSIUM 2.3 mmol/L (3.5-5.1)
--- NOTE | 2016-09-21 14:17 | DIAGNOSTIC IMAGING REPORT ---
CT SCAN OF THE ABDOMEN AND PELVIS WITHOUT CONTRAST CLINICAL HISTORY: Epigastric and inferior lower quadrant pain, hx Pancreatitis COMPARISON STUDY: 06/21/2016 TECHNIQUE: CT scan of the abdomen and pelvis was performed from the lung bases to the proximal femurs. Images are reviewed in the axial, sagittal, and coronal planes. IV contrast was not administered for this examination. CT DOSE: 609.14 mGy.cm FINDINGS: Lower chest: There are multiple calcified granulomas present. No pleural effusions are visualized. Liver: There is severe hepatic steatosis. There is a 14 mm nodule within the right hepatic lobe, possibly representing focal fatty sparing. This remains unchanged from April 2016 Gallbladder: Surgically absent Spleen: Normal in size and attenuation. Pancreas: Unremarkable. Adrenal glands: Unremarkable. Kidneys: The unenhanced kidneys are normal in size without hydronephrosis. There is no contour deforming renal mass lesion. No renal calculi are identified. Bowel: There are no transition zones indicate bowel obstruction. There is submucosal fat hypertrophy within the colon. This a nonspecific finding which has been reported in inflammatory bowel disease. By history the appendix is absent. There is no acute diverticulitis. Scattered colonic diverticula are present. Peritoneum: There is no intraperitoneal free air or abdominal ascites. Vasculature: The abdominal aorta is normal in course and caliber. Adenopathy: None. Pelvic viscera: The uterus appears surgically absent. Skeletal structures: No destructive osseous lesions are seen. IMPRESSION: 1. Severe hepatic steatosis 2. Stable 14 mm lesion within the right hepatic lobe. 3. No evidence of bowel obstruction. No evidence of free air 4. Diverticulosis. No evidence of acute diverticulitis 5. Submucosal fat hypertrophy within the colon. Electronically signed by: Ramon Dominique M.D. 09/21/2016 2:16 PM Dictated Date/Time: 09/21/2016 2:09 PM
[2016-09-21] MEDS ORDERED: POTASSIUM CHLORIDE 10 MEQ TABCR PO STA (14:21)
[2016-09-21] MEDS ORDERED: POTASSIUM CHLR 20 MEQ / WTR 20 MEQ in PREMIXED WATER 100 ML IV STA (14:21)
[2016-09-21] MEDS ORDERED: POTASSIUM CHLORIDE 10 MEQ / 100ML WTR IV ONE (14:36)
[2016-09-21] MEDS: POTASSIUM CHLR 10MEQ / WTR IV SCH ×2 (14:38→15:21)
--- NOTE | 2016-09-21 15:55 | DIAGNOSTIC IMAGING REPORT ---
ULTRASOUND RIGHT UPPER QUADRANT ABDOMEN CLINICAL HISTORY: Epigastric abdominal pain. COMPARISON STUDY: Abdominal CT performed the same day 09/21/2016. TECHNIQUE: Real-time, grayscale, and color flow sonography of the right upper quadrant of the abdomen was performed. Images are reviewed in the transverse and longitudinal planes. FINDINGS: Liver: The liver is enlarged measuring over 24 cm in length. The liver demonstrates heterogeneous increased echotexture consistent with severe hepatic steatosis. Note that this degrades acoustic penetration of liver. There is no intrahepatic biliary ductal dilatation. The main portal vein is patent. Gallbladder: The gallbladder is surgically absent. The common bile duct measures up to 0.7 cm in diameter. Pancreas: Visualized portions of the pancreatic head and body are normal in appearance. The splenic vein is patent. Right kidney: Survey images of the right kidney demonstrate normal size and echotexture. There is no hydronephrosis. Ascites: None. IMPRESSION: 1. No acute sonographic abnormality is identified in the right upper quadrant noting status post cholecystectomy. 2. Hepatomegaly and severe hepatic steatosis. Electronically signed by: Reg Ly M.D. 09/21/2016 3:54 PM Dictated Date/Time: 09/21/2016 3:53 PM
[2016-09-21 16:41] VITALS: O2SAT 99; Ht 172.7 cm; Wt 84.4 kg
[2016-09-21] MEDS ORDERED: HYDROmorphone INJ 0.5 MG/0.5 ML SYR IV STA (16:46)
[2016-09-21] MEDS ORDERED: ONDANSETRON INJ 2 MG/ML 2 ML VIAL ONE (17:00)
[2016-09-21] MEDS ORDERED: ALUMINUM/MAGNESIUM/SIMETH (MAALOX MAX) 30 ML UDC PO PRN (17:00)
[2016-09-21] MEDS ORDERED: ACETAMINOPHEN 325 MG TAB PO PRN (17:00)
[2016-09-21] MEDS ORDERED: HYDROmorphone INJ 0.5 MG/0.5 ML SYR IV PRN (17:15)
[2016-09-21] MEDS ORDERED: LORAZEPAM 2 MG/ML 1 ML VIAL IV PRN ×2 (17:15)
[2016-09-21] MEDS ORDERED: PROMETHAZINE HCL INJ 12.5 MG in SODIUM CHLORIDE 0.9% 50ML 50 ML IV PRN (17:15)
[2016-09-21] MEDS ORDERED: GI COCKTAIL PO PRN (17:30)
[2016-09-21] MEDS: POTASSIUM CHLORIDE 20 MEQ TABCR PO SCH (18:00)
--- NOTE | 2016-09-21 18:03 | HISTORY & PHYSICAL EXAMINATION ---
DATE OF ADMISSION: 09/21/2016 REASON FOR ADMISSION: 1. Hyperkalemia. 2. Hypomagnesemia. 3. Abdominal pain. 4. Acute on chronic diarrhea. 5. Steatosis of her liver. HISTORY OF PRESENT ILLNESS: Ms. Harrison is a 51-year-old female who was discharged in July after a bout of abdominal pain and hypokalemia, magnesemia. At that time, she was repleted, but felt that maybe her electrolyte abnormalities were due to diuretic use. Diuretic was discontinued and she was discharged. The patient states she had a followup appointment with her primary care physician and had lab works which were "all normal." The patient does suffer from chronic diarrhea from her fatty liver disease and previous pancreatitis from alcohol abuse. The patient has seen Dr. Giraldo in the past and had used Questran with some success, almost too much success, and she self-discontinued the medication. The patient presents today with profound weakness over the last 2 weeks, decreased appetite, intense abdominal pain including perirectal pain, relieved with defecation. The pain is rated in the perirectum a 10/10, sharp, stabbing or boring pain. It is only relieved with defecation. The abdominal pain is generalized, worse in the epigastrium, not helped or relieved by anything. The patient says she has had changes in her stool habits with having light white mucusy stools lately. There haves been no fevers, chills, or foul-smelling stools. The patient has had no change in her urine. REVIEW OF SYSTEMS: Otherwise, 10 systems were reviewed and are negative unless listed above. PAST MEDICAL HISTORY: Includes for cholecystectomy, appendectomy, alcohol abuse, steatosis, diverticulosis, and as mentioned previous bouts of electrolyte disturbances. Hypertension, COPD, depression. Previous gastritis and duodenitis. MEDICATIONS: Effexor 75 a day, Protonix 40 a day. She was on Carafate this has been discontinued as she is greater than 30 days out. Combivent 1 puff q.i.d., losartan 50 a day, and as mentioned she was on a tapering dose of benzodiazepines for alcohol withdrawal, this is since stopped. The patient states she has been abstinent since that time. SOCIAL HISTORY: The patient did drink significantly, this led to some of her health problems and she has been abstinent. The patient states she smokes about 1-1/2 pack to 5 cigarettes a day. She is continuing to try to stop. She has no drinking at all. She does not use excessive caffeine and does not use any ibuprofen. FAMILY HISTORY: Significant for COPD which her father had from. PHYSICAL EXAMINATION: GENERAL: She is pleasant. She is tearful. She is actually nauseated after receiving some hydromorphone in the ER. VITAL SIGNS: Her temperature of 36.5, pulse is 89, respirations rate 20, BP 135/89, O2 sat 99% on room air. HEENT: PERRL, EOMI. She is anicteric. Oropharynx is clear with minor erythema, no exudates or thrush. NECK: Without lymphadenopathy. Trachea is midline. HEART: Regular without murmurs, clicks, rubs or gallops. LUNGS: Clear without wheezes or crackles. She has no spinal tenderness or CV angle tenderness. ABDOMEN: With hypoactive bowel sounds. She is guarding diffusely in the upper quadrants and the lower quadrants are mildly more soft. There is no rebound in that area. There are no masses appreciated. EXTREMITIES: Without cyanosis, clubbing or edema. SKIN: Without lesions, growths, bruises or bleeding. NEUROLOGICALLY: She is awake, alert and appropriate. Cranial nerves II-XII are intact. Equal symmetrical strength and sensation. PSYCHOLOGICALLY: She is anxious, depressed and has pressured speech. LABORATORY DATA: She has a white count of 6, H&H 13 and 37, platelet count is 235. BUN and creatinine are 7 and 0.9. She does have mildly elevated lipase of 350 and her LFT showed a bilirubin of 2.4, AST of 180, ALT of 114 and alk phos of 192. Her potassium is low at 2.3, magnesium is low at 1.4. TSH is complete. IMAGING DATA: She has had a chest x-ray unremarkable. Ultrasound and CT of the abdomen are congruent, showing no evidence of pancreatic inflammation, absent gallbladder, the steatosis of her liver. No other intra-abdominal abnormalities. There is a nodule in the liver seen on the CT scan, which may be fatty sparing and there are some fat within the submucosa. She did have an electrocardiogram in the Emergency Department that shows her to have a sinus rhythm. She has just like a biphasic T waves seen in V3, V4, and V5 and a prolonged QT. ASSESSMENT: A 51-year-old female with profound hypokalemia and hypomagnesemia with electrocardiogram changes. PLAN: The patient will be admitted to telemetry and she will be repleted with regard to her potassium and magnesium. Urine potassium to be obtained to see if she has potassium-wasting nephropathy and so urology might be consulted. I believe her EKG changes likely might be from electrolyte disturbances and we will repeat an EKG in the morning. Regarding her possible pancreatitis. She has no evidence of pancreatic inflammation seen on any of her imaging studies. Will repeat a lipase in the morning. Elevated liver function tests cw hepatitis. She denies to having any alcoholic use. This could be from steatosis. Will once again repeat these. Chronic diarrhea, we will rule out infectious causes by checking stool cultures. Will get a GI consultation for malabsorption Will begin her Questran again. Will not use any decreased motility agents at this point in time. One consideration is should we check a fecal fat to see if she is malabsorptive or should we begin pancreatic enzymes given her history of pancreatitis. Regarding her chronic health conditions, the losartan will be maintained for her blood pressure control. Regarding her chronic obstructive pulmonary disease, this is stable at this time, Combivent will be maintained at 1 puff q.i.d. Regarding her previous gastritis and duodenitis, Protonix will be converted to IV. Will use GI cocktail if she has got persistent increased pain. Regarding her depression, Effexor will be continued. Regarding DVT prevention, we are going to use Lovenox. The patient is a full code. MTDD
[2016-09-21] MEDS: IPRATROPIUM BROMIDE/ALBUTEROL respimat INH INH SCH ×2 (19:14→21:15)
[2016-09-21] MEDS ORDERED: LORAZEPAM INJ 1 MG in SYRINGE 0.5 ML IV PRN (19:30)
[2016-09-21] MEDS: NSS + 20MEQ KCL 1000ML 1,000 ML IV SCH ×2 (19:52→20:21)
[2016-09-21] MEDS: PANTOprazole INJ 40 MG in SYRINGE 0 ML IV SCH (19:53)
[2016-09-21] MEDS: MAGNESIUM SULFATE 1GM / D5W 1 GM in PREMIXED IN D5W 100 ML IV SCH ×3 (19:53→21:21)
[2016-09-21] MEDS ORDERED: ALUMINUM/MAGNESIUM SUSP 72 ML, LIDOCAINE HCL 2% VISCOUS SOLN 24 ML, BARCODE IDENTIFIER ... PO PRN ×2 (20:00)
[2016-09-21 20:05] LABS: PARTIAL THROMBOPLASTIN RATIO 0.9; PROTHROMBIN TIME (PATIENT) 10.9 SECONDS (9.0-12.0)
[2016-09-21 20:15] VITALS: BP 132/80; PULSE 85; TEMP 36.6; O2SAT 95
[2016-09-21] MEDS: HYDROmorphone INJ 1 MG/ML SYR IV PRN (20:51)
[2016-09-21] MEDS: CHOLESTYRAMINE LIGHT 4 GM PKT PO SCH (21:14)
[2016-09-21] MEDS: ENOXAPARIN 40 MG/0.4 ML SYR SC SCH (21:14)
--- NOTE | 2016-09-21 22:58 | EMERGENCY ROOM VISIT NOTE ---
History First contact with patient: 12:26 Chief Complaint: ABDOMINAL PAIN Stated Complaint: HYPOKALEMIA Nursing Triage Summary: Reports abdominal pain, nausea, and vomiting for 2 weeks. Also reports diarrhea , states this is chronic. Rates abdominal pain as 8/10 in severity. Has history of pancreatitis. History of Present Illness The patient is a 51 year old female who presents to the Emergency Room via ambulance with complaints of "abdominal pain". The patient states that 2 weeks ago she began with vomiting, and states she is unable to keep anything down when she eats. She points to the epigastric region inferior quadrants as a location of pain she rates as an 8/10. She has not taken anything for the pain. She feels she has a history of pancreatitis and believes this may be the cause of her pain. There has been associated diarrhea of which the patient notes is chronic, and follows with Dr. fuentes of gastroenterology. She states she has had colonoscopies in the past. There is associated chills. There also is associated minimal alcohol use subjectively. Patient denies any fevers, chest pain, shortness of breath, blood in the stool, urinary symptoms, vaginal symptoms. Review of Systems A complete 10-point Review of Systems was discussed with the patient, with pertinent positives and negatives listed in the History of Present Illness. All remaining Review of Systems questions can be considered negative unless otherwise specified. Past Medical/Surgical History Medical Problems: (1) Alcohol Abuse-Unspec (2) Anxiety (3) Anxiety State Nos (4) Asthma, Unspecified (5) Calculus Of Ureter (6) Diverticulosis Colon (W/O Ment Of Hemorrhage) (7) Hypokalemia (8) Hypothyroidism Nos (9) Lumbago (10) Migraine Unspecified W/O Intract Mgrn W/O Status Migrainosus (11) Pancreatitis, acute Surgical Problems: (1) History of cholecystectomy Family History No significant family history Social History Smoking Status: Current Every Day Smoker Alcohol Use: other Drug Use: none Marital Status: single Occupation Status: employed Current/Historical Medications Scheduled Ipratropium-Albuterol (Combivent Respimat), 1 PUFF PO QID Losartan Potassium (Losartan Potassium), 50 MG PO DAILY Pantoprazole (Pantoprazole Sodium), 40 MG PO QAM Venlafaxine Hcl (Effexor Extended Rel), 75 MG PO DAILY Allergies Coded Allergies: Penicillins (Verified Allergy, Intermediate, RASH/HIVES, 06/23/16) Sulfa Antibiotics (Verified Allergy, Intermediate, HIVES, 06/23/16) Codeine (Verified Allergy, Unknown, 06/23/16) Indomethacin (Verified Allergy, Unknown, 06/23/16) Iodine (Verified Allergy, Unknown, 06/23/16) [place] (Verified Allergy, Unknown, 06/23/16) Physical Exam Vital Signs Date Time Temp Pulse Resp B/P (MAP) Pulse Ox O2 Delivery O2 Flow Rate FiO2 09/21/16 16:41 99 Room Air 09/21/16 15:52 89 20 135/93 99 Room Air 09/21/16 14:56 90 19 136/91 99 Room Air 09/21/16 13:33 93 09/21/16 13:21 97 16 124/84 95 Room Air 09/21/16 13:21 96 Room Air 09/21/16 11:55 36.5 118 18 117/81 99 Room Air Pain Rating (0-10): 3.5 Physical Exam VITAL SIGNS - Vital signs and nursing notes were reviewed. Patient is afebrile , normotensive, tachycardic at a rate of 118 bpm, and is saturating well on room air at 98%. GENERAL -51-year-old female appearing her stated age who is in no acute distress. Communicates well with provider and answers questions appropriately. SKIN - Without rashes. No petechial rashes. HEAD - NC/AT. EYES - PERRL with EOMI bilaterally. Sclera anicteric. Palpebral conjunctiva pink and moist with no injection noted. EARS - No deformities of external structures noted on gross examination bilaterally. No pain elicited with palpation of the tragus bilaterally. External auditory canals without discharge or otorrhea. Tympanic membranes pearly abdi without retraction or bulging. No fluid or purulent material visualized behind the TM. Handle of malleus, umbo, cone of light, pars tensa/ flaccid all easily visualized. NOSE - Midline and without cyanosis. No epistaxis or purulent drainage noted. Septum midline without deviation or septal hematoma noted. MOUTH/OROPHARYNX - Without perioral cyanosis. Buccal mucosa pink and moist and without leukoplakia. Tongue midline with equal elevation of palate bilaterally. No tonsillar hypertrophy, erythema, or exudates noted. Fair dentition noted. NECK - Neck with FROM. Supple to palpation. No lymphadenopathy noted. No nuchal rigidity. LUNGS - Chest wall symmetric without accessory muscle use, intercostals retractions, or central cyanosis. Normal vesicular breath sounds CTA B/L. No wheezes, rales, or rhonchi appreciated. CARDIAC - RRR with S1/S2. No murmur, rubs, or gallops appreciated. ABDOMEN - Abdominal contour without pulsations or visible masses. BS normoactive all four quadrants. There is tenderness in the right upper quadrant , epigastric region and inferior umbilical region. No palpable masses, hepatosplenomegaly, or ascites noted. EXTREMITIES - No clubbing or peripheral cyanosis. +5/5 strength noted in UE/LE bilaterally. NEUROLOGIC - Cranial nerves II through XII grossly intact. Medical Decision & Procedures ER Provider Diagnostic Interpretation: CHEST ONE VIEW PORTABLE CLINICAL HISTORY: Epigastric abdominal pain. COMPARISON STUDY: Chest radiograph May 17, 2016. FINDINGS: Innumerable calcified nodules throughout the lungs are again noted. There is no pneumothorax or pleural effusion. Pulmonary vascularity is normal. Cardiac size is normal. No consolidation is identified to suggest pneumonia. There is no lucency under the hemidiaphragms on this study to indicate pneumoperitoneum. IMPRESSION: No acute cardiopulmonary findings. Electronically signed by: Vick Mcginnis M.D. 09/21/2016 12:55 PM Dictated Date/Time: 09/21/2016 12:[address] SCAN OF THE ABDOMEN AND PELVIS WITHOUT CONTRAST CLINICAL HISTORY: Epigastric and inferior lower quadrant pain, hx Pancreatitis COMPARISON STUDY: 06/21/2016 TECHNIQUE: CT scan of the abdomen and pelvis was performed from the lung bases to the proximal femurs. Images are reviewed in the axial, sagittal, and coronal planes. IV contrast was not administered for this examination. CT DOSE: 609.14 mGy.cm FINDINGS: Lower chest: There are multiple calcified granulomas present. No pleural effusions are visualized. Liver: There is severe hepatic steatosis. There is a 14 mm nodule within the right hepatic lobe, possibly representing focal fatty sparing. This remains unchanged from April 2016 Gallbladder: Surgically absent Spleen: Normal in size and attenuation. Pancreas: Unremarkable. Adrenal glands: Unremarkable. Kidneys: The unenhanced kidneys are normal in size without hydronephrosis. There is no contour deforming renal mass lesion. No renal calculi are identified. Bowel: There are no transition zones indicate bowel obstruction. There is submucosal fat hypertrophy within the colon. This a nonspecific finding which has been reported in inflammatory bowel disease. By history the appendix is absent. There is no acute diverticulitis. Scattered colonic diverticula are present. Peritoneum: There is no intraperitoneal free air or abdominal ascites. Vasculature: The abdominal aorta is normal in course and caliber. Adenopathy: None. Pelvic viscera: The uterus appears surgically absent. Skeletal structures: No destructive osseous lesions are seen. IMPRESSION: 1. Severe hepatic steatosis 2. Stable 14 mm lesion within the right hepatic lobe. 3. No evidence of bowel obstruction. No evidence of free air 4. Diverticulosis. No evidence of acute diverticulitis 5. Submucosal fat hypertrophy within the colon. Electronically signed by: Ramon Dominique M.D. 09/21/2016 2:16 PM Dictated Date/Time: 09/21/2016 2:09 PM ULTRASOUND RIGHT UPPER QUADRANT ABDOMEN CLINICAL HISTORY: Epigastric abdominal pain. COMPARISON STUDY: Abdominal CT performed the same day 09/21/2016. TECHNIQUE: Real-time, grayscale, and color flow sonography of the right upper quadrant of the abdomen was performed. Images are reviewed in the transverse and longitudinal planes. FINDINGS: Liver: The liver is enlarged measuring over 24 cm in length. The liver demonstrates heterogeneous increased echotexture consistent with severe hepatic steatosis. Note that this degrades acoustic penetration of liver. There is no intrahepatic biliary ductal dilatation. The main portal vein is patent. Gallbladder: The gallbladder is surgically absent. The common bile duct measures up to 0.7 cm in diameter. Pancreas: Visualized portions of the pancreatic head and body are normal in appearance. The splenic vein is patent. Right kidney: Survey images of the right kidney demonstrate normal size and echotexture. There is no hydronephrosis. Ascites: None. IMPRESSION: 1. No acute sonographic abnormality is identified in the right upper quadrant noting status post cholecystectomy. 2. Hepatomegaly and severe hepatic steatosis. Electronically signed by: Reg Ly M.D. 09/21/2016 3:54 PM Dictated Date/Time: 09/21/2016 3:53 PM Laboratory Results 09/21/16 11:55 Red Blood Count 3.65, Mean Corpuscular Volume 102.2, Mean Corpuscular Hemoglobin 36.2, Mean Corpuscular Hemoglobin Concent 35.4, Mean Platelet Volume 10.8, Neutrophils (%) (Auto) 64.2, Lymphocytes (%) (Auto) 16.4, Monocytes (%) ( Auto) 15.6, Eosinophils (%) (Auto) 0.5, Basophils (%) (Auto) 1.5, Neutrophils # (Auto) 3.94, Lymphocytes # (Auto) 1.01, Monocytes # (Auto) 0.96, Eosinophils # ( Auto) 0.03, Basophils # (Auto) 0.09 09/21/16 11:55 09/21/16 13:29 Test 09/21/16 00:00 09/21/16 11:55 09/21/16 13:29 White Blood Count 6.14 K/uL (4.8-10.8) Red Blood Count 3.65 M/uL (4.2-5.4) Hemoglobin 13.2 g/dL (12.0-16.0) Hematocrit 37.3 % (37-47) Mean Corpuscular Volume 102.2 fL (80-100) Mean Corpuscular Hemoglobin 36.2 pg (25-34) Mean Corpuscular Hemoglobin Concent 35.4 g/dl (32-36) Platelet Count 235 K/uL (130-400) Mean Platelet Volume 10.8 fL (7.4-10.4) Neutrophils (%) (Auto) 64.2 % Lymphocytes (%) (Auto) 16.4 % Monocytes (%) (Auto) 15.6 % Eosinophils (%) (Auto) 0.5 % Basophils (%) (Auto) 1.5 % Neutrophils # (Auto) 3.94 K/uL (1.4-6.5) Lymphocytes # (Auto) 1.01 K/uL (1.2-3.4) Monocytes # (Auto) 0.96 K/uL (0.11-0.59) Eosinophils # (Auto) 0.03 K/uL (0-0.5) Basophils # (Auto) 0.09 K/uL (0-0.2) RDW Standard Deviation 56.9 fL (36.4-46.3) RDW Coefficient of Variation 15.2 % (11.5-14.5) Immature Granulocyte % (Auto) 1.8 % Immature Granulocyte # (Auto) 0.11 K/uL (0.00-0.02) Nucleated RBC Absolute Count (auto) 0.16 K/uL (0-0) Nucleated Red Blood Cells % 2.6 % Blood Smear Review Macrocytosis PRESENT Anion Gap 20.0 mmol/L (3-11) Est Creatinine Clear Calc Drug Dose 81.2 ml/min Estimated GFR () 85.8 Estimated GFR (Non- 74.0 BUN/Creatinine Ratio 7.7 (10-20) Calcium Level 9.0 mg/dl (8.5-10.1) Total Bilirubin 2.4 mg/dl (0.2-1) Alanine Aminotransferase (ALT/SGPT) 114 U/L (12-78) Alkaline Phosphatase 192 U/L (45-117) Total Protein 7.1 gm/dl (6.4-8.2) Albumin 3.4 gm/dl (3.4-5.0) Globulin 3.7 gm/dl (2.5-4.0) Albumin/Globulin Ratio 0.9 (0.9-2) Amylase Level 44 U/L (25-115) Lipase 750 U/L (73-393) Thyroid Stimulating Hormone (TSH) 1.990 uIu/ml (0.300-4.500) Magnesium Level 1.4 mg/dl (1.8-2.4) Aspartate Amino Transf (AST/SGOT) 180 U/L (15-37) Medications Administered Medications (Trade) Dose Ordered Sig/Razia Route Start Time Stop Time Status Last Admin Dose Admin Sodium Chloride 1,000 ml @ 999 mls/hr Q1H1M IV 09/21/16 12:45 09/21/16 13:32 DC 09/21/16 12:50 999 MLS/HR Dicyclomine HCl (Bentyl Inj) 20 mg NOW STAT IM 09/21/16 12:39 09/21/16 12:41 DC 09/21/16 13:01 20 MG Sodium Chloride 1,000 ml @ 999 mls/hr Q1H1M ONCE IV 09/21/16 13:30 09/21/16 19:24 DC 09/21/16 13:30 999 MLS/HR Potassium Chloride (Klor-Con M10) 20 meq NOW STAT PO 09/21/16 14:21 09/21/16 14:22 DC 09/21/16 14:35 20 MEQ Potassium Chloride 10 meq/ Prmx 100 ml @ 100 mls/hr Q1H IV 09/21/16 14:21 09/21/16 16:20 DC 09/21/16 14:38 100 MLS/HR Potassium Chloride (Kcl 10 Meq / Wtr) 20 meq STK-MED ONCE IV 09/21/16 14:36 09/21/16 14:37 DC 09/21/16 15:55 10 MEQ Hydromorphone HCl (Dilaudid Inj) 1 mg NOW STAT IV 09/21/16 16:46 09/21/16 16:47 DC 09/21/16 16:55 1 MG Medical Decision Patient was seen and evaluated as above. IV access was initiated and the above workup was performed. Patient was presents to us today with a history of pancreatitis, a two-week history of epigastric abdominal pain. She currently is on a no narcotic regimen here within the department. She was offered other pain management modalities, and it was seen and a previous visit she was given Bentyl, Zofran and fluids. She'll receive Zofran in route via ambulance, therefore she was hydrated with normal saline and provided with 20 mg intramuscularly of Bentyl. She is reevaluated and was still feeling pain. Her laboratory studies reveal a red blood cell count decreased at 3.65, no leukocytosis, normal coagulation studies, potassium of 2.3, anion gap of 20, glucose of 141, magnesium of 1.4, bilirubin elevated at 2.4, AST high at 180, a LT at 114, alkaline phosphatase of 192, and lipase is 750. She has severe hepatic steatosis. She is post cholecystectomy. She was given replacements of the potassium orally and intravenously. I did not want to overload her with potassium at this time. I did discuss the case with my attending, and subsequently the hospitalist. I do believe that she needs further management regarding her potassium. Her EKG reveals sinus rhythm, rate of 90 bpm, when compared with EKG of 06/21/2016, T-wave inversion is now evident in the anterior leads. CT scan does not reveal any acute pancreatitis. Chest x-ray remarkable for acute process. Hospitalist asked if I would obtain an ultrasound of the bilirubin is elevated. Ultrasound does not reveal any acute finding at this time. I do believe that further management in the inpatient setting is warranted. Please refer to further documentation regarding her stay. I did provide her 1 mg of Dilaudid intravenously for pain secondary to her lab changes and abdominal pain. In evaluation treatment this patient the following differential diagnoses were entertained: Pancreatitis, cholecystitis, choledocholithiasis, ascending cholangitis, malignant causes, drug-seeking behavior, MS, PE, among others. Impression Primary Impression: Abdominal pain Additional Impression: Hypokalemia Departure Information Dispostion Admitted as an inpatient Condition FAIR Referrals Jeb Burgess MD (PCP) Forms Call Back Authorization, HOME CARE DOCUMENTATION FORM, IMPORTANT VISIT INFORMATION Patient Instructions [facility] Problem Qualifiers Primary Impression: Abdominal pain Abdominal location: epigastric Qualified Codes: R10.13 - Epigastric pain
[2016-09-21 23:09] LABS: URINE APPEARANCE CLEAR (CLEAR); URINE BILIRUBIN NEG (NEG); URINE COLOR DK YELLOW; URINE EPITHELIAL CELL AUTO >30 /lpf (0-5); URINE NITRITE NEG (NEG); URINE SPECIFIC GRAVITY 1.007 (1.000-1.030); UROBILINOGEN NEG (NEG)
[2016-09-21 23:17] LABS: MANUAL MICROSCOPIC REQUIRED? NO; REVIEW REQ? YES
[2016-09-21 23:27] LABS: ZZUR CULT IF INDIC CLEAN CATCH YES
[2016-09-21] MEDS: LORAZEPAM INJ 0.5 MG in SYRINGE 0.75 ML IV PRN (23:42)
[2016-09-22] VITALS (7 sets, daily range): BP systolic 118–141; BP diastolic 83–93; PULSE 86–95; TEMP 36.4–36.5; O2SAT 90–96
[2016-09-22] MEDS ORDERED: NURSING VERBAL MED ORDER ONE ×2 (01:00→08:45)
[2016-09-22] MEDS ORDERED: ZOLPIDEM TARTRATE 5 MG TAB PO PRN (01:15)
[2016-09-22] MEDS: HYDROmorphone INJ 1 MG/ML SYR IV PRN ×6 (01:17→21:43)
[2016-09-22] MEDS: NSS + 20MEQ KCL 1000ML 1,000 ML IV SCH (03:30)
[2016-09-22] MEDS: VENLAFAXINE HCL XR 75 MG CAPXR PO SCH (07:46)
[2016-09-22] MEDS: POTASSIUM CHLORIDE 20 MEQ TABCR PO SCH ×2 (07:46→16:15)
[2016-09-22] MEDS: LOSARTAN POTASSIUM 50 MG TAB PO SCH (07:46)
[2016-09-22] MEDS: IPRATROPIUM BROMIDE/ALBUTEROL respimat INH INH SCH ×4 (07:46→21:38)
[2016-09-22] MEDS: PANTOprazole INJ 40 MG in SYRINGE 0 ML IV SCH (07:47)
[2016-09-22 07:59] LABS: HEMATOCRIT 33.1 % (37-47); MEAN CELL VOLUME 103.8 fL (80-100); MEAN CORPUSCULAR HEMOGLOBIN 36.4 pg (25-34); MEAN PLATELET VOLUME 10.2 fL (7.4-10.4); PLATELET COUNT 183 K/uL (130-400); RED BLOOD COUNT 3.19 M/uL (4.2-5.4); WHITE BLOOD COUNT 5.15 K/uL (4.8-10.8)
[2016-09-22 08:28] LABS: ALB/GLOB RATIO 1.1 (0.9-2); BUN/CREATININE RATIO 7.7 (10-20); CREATININE 0.9 mg/dl (0.60-1.20); MAGNESIUM 1.8 mg/dl (1.8-2.4); POTASSIUM 2.7 mmol/L (3.5-5.1)
[2016-09-22] MEDS ORDERED: PANTOprazole SOD 40 MG TAB PO SCH (09:00)
[2016-09-22] MEDS: CHOLESTYRAMINE LIGHT 4 GM PKT PO SCH ×2 (09:52→21:39)
[2016-09-22] MEDS: NICOTINE 21 MG/24 HR TDSY EXT SCH (09:52)
[2016-09-22] MEDS ORDERED: DICYCLOMINE HCL 20 MG TAB PO ONE (10:05)
[2016-09-22] MEDS ORDERED: MAGNESIUM SULFATE 1GM / D5W 1 GM in PREMIXED IN D5W 100 ML IV ONE (10:45)
[2016-09-22] MEDS: POTASSIUM CHLORIDE INJ 40 MEQ in SODIUM CHLORIDE 0.9% 1000ML 1,000 ML IV SCH ×2 (11:06→19:48)
--- NOTE | 2016-09-22 11:55 | Progress Note ---
Subjective Date of Service: Sep 22, 2016. Subjective this pt is shakey today and feels anxious, she still denies drinking alcohol, she requests nicotine patch no diarrhea and less pain, overall feels bad but better Problem List Medical Problems: (1) Abdominal pain Status: Acute (2) Acute pancreatitis Status: Acute (3) Alcohol intoxication Status: Acute (4) Pancreatitis Status: Acute Review of Systems Constitutional: + weakness, + fatigue Cardiac: No chest pain, No edema Abdomen: + pain, + nausea, No vomiting, No diarrhea Musculoskeletal: + joint pain, + muscle pain, + calf pain Female : No dysuria, No urinary frequency Neurologic: + weakness, No memory loss Psychiatric: + depression symptoms, + anxiety Objective Vital Signs Date Time Temp Pulse Resp B/P (MAP) Pulse Ox O2 Delivery O2 Flow Rate FiO2 09/22/16 07:43 36.5 90 16 141/93 (109) 94 Room Air 09/22/16 04:00 Room Air 09/22/16 04:00 36.4 92 20 133/88 (103) 90 Room Air 09/22/16 00:00 Room Air 09/22/16 00:00 36.5 93 18 126/88 (101) 95 Room Air 09/21/16 20:15 36.6 85 18 132/80 (97) 95 Room Air 09/21/16 20:00 Room Air 09/21/16 18:25 96 20 95 09/21/16 17:55 99 19 126/73 96 Room Air 09/21/16 16:41 99 Room Air 09/21/16 15:52 89 20 135/93 99 Room Air 09/21/16 14:56 90 19 136/91 99 Room Air 09/21/16 13:33 93 09/21/16 13:21 97 16 124/84 95 Room Air 09/21/16 13:21 96 Room Air 09/21/16 11:55 36.5 118 18 117/81 99 Room Air Physical Exam General Appearance: WD/WN, + mild distress Eyes: PERRL, EOMI Neck: supple, no JVD Respiratory/Chest: chest non-tender, lungs clear, normal breath sounds Cardiovascular: regular rate, rhythm, + JVD Abdomen: normal bowel sounds, soft, + guarding, + tenderness Extremities: no pedal edema, no calf tenderness Neurologic/Psychiatric: alert, oriented x 3 Laboratory Results Last 24 Hours Test 09/21/16 11:55 09/21/16 13:29 09/21/16 19:44 09/22/16 04:44 White Blood Count 6.14 K/uL Red Blood Count 3.65 M/uL Hemoglobin 13.2 g/dL Hematocrit 37.3 % Mean Corpuscular Volume 102.2 fL Mean Corpuscular Hemoglobin 36.2 pg Mean Corpuscular Hemoglobin Concent 35.4 g/dl Platelet Count 235 K/uL Mean Platelet Volume 10.8 fL Neutrophils (%) (Auto) 64.2 % Lymphocytes (%) (Auto) 16.4 % Monocytes (%) (Auto) 15.6 % Eosinophils (%) (Auto) 0.5 % Basophils (%) (Auto) 1.5 % Neutrophils # (Auto) 3.94 K/uL Lymphocytes # (Auto) 1.01 K/uL Monocytes # (Auto) 0.96 K/uL Eosinophils # (Auto) 0.03 K/uL Basophils # (Auto) 0.09 K/uL RDW Standard Deviation 56.9 fL RDW Coefficient of Variation 15.2 % Immature Granulocyte % (Auto) 1.8 % Immature Granulocyte # (Auto) 0.11 K/uL Nucleated RBC Absolute Count (auto) 0.16 K/uL Nucleated Red Blood Cells % 2.6 % Blood Smear Review Macrocytosis PRESENT Sodium Level 139 mmol/L Potassium Level mmol/L 2.3 mmol/L Chloride Level 96 mmol/L Carbon Dioxide Level 23 mmol/L Anion Gap 20.0 mmol/L Blood Urea Nitrogen 7 mg/dl Creatinine 0.90 mg/dl Est Creatinine Clear Calc Drug Dose 81.2 ml/min Estimated GFR () 85.8 Estimated GFR (Non- 74.0 BUN/Creatinine Ratio 7.7 Random Glucose 141 mg/dl Calcium Level 9.0 mg/dl Magnesium Level mg/dl 1.4 mg/dl Total Bilirubin 2.4 mg/dl Aspartate Amino Transf (AST/SGOT) U/L 180 U/L Alanine Aminotransferase (ALT/SGPT) 114 U/L Alkaline Phosphatase 192 U/L Total Protein 7.1 gm/dl Albumin 3.4 gm/dl Globulin 3.7 gm/dl Albumin/Globulin Ratio 0.9 Amylase Level 44 U/L Lipase 750 U/L Thyroid Stimulating Hormone (TSH) 1.990 uIu/ml Prothrombin Time 10.9 SECONDS Prothromb Time International Ratio 1.0 Activated Partial Thromboplast Time 22.9 SECONDS Partial Thromboplastin Ratio 0.9 Assessment and Plan 51f with profound hypokalemia and hypomagnesemia with electrocardiogram changes. HYPOKALEMIA, HYPOMAGNESEMIA, still low additional bolus 6/2, adjust ivf also Possible pancreatitis. She has no evidence of pancreatic inflammation seen on any of her imaging studies. lipase remains in 700's maybe chronic clear liquid diet and hydration plus pain control Elevated liver function tests steatohepatitis. trending down Chronic diarrhea, improved we will rule out infectious, GI consultation, begin Questran ? if we should begin pancreatic enzymes stool fat pending HTN losartan Chronic obstructive pulmonary disease, stable, Combivent will be maintained at 1 puff q.i.d. gastritis and duodenitis, Protonix IV. depression, Effexor, substance abuse still denies, nicotine patch start librium for anxiety and tremulousness DVT prevention, Lovenox. The patient is a full code.
[2016-09-22] MEDS: POTASSIUM CHLR 10 MEQ / WTR 10 MEQ in PREMIXED WATER 100 ML IV SCH ×3 (12:00→13:00)
[2016-09-22] MEDS: CHLORDIAZEPOXIDE 25 MG CAP PO SCH ×3 (12:13→21:38)
--- NOTE | 2016-09-22 12:35 | Gastrointestinal Consultation ---
Gastrointestinal Consultation Date of Consultation: Sep 22, 2016 Attending Physician: Nabil Mcnair Consulting Physician: Dipti Hartman Reason for Consultation: Acute on chronic diarrhea History of Present Illness Patient is a 51 year old female admitted for hypokalemia, hypomagnesemia seen today for abd pain, diarrhea, steatosis . She has hx of ETOH pancreatitis, on admission Lipase noted to be elevated in 700s. Though on CT abd/pelvis pancreas appears unremarkable. Abd u/s also noted s/p cholecystectomy status w/o biliary dilation. Imagins studies did not hepatomegaly w steatosis. Her LFTs are elevated, improved recently to Tbili 1.5, AST 139, ALT 88, AP 161. She last drank Coke and Rum 2 weeks ago. She continues to smoke 1 PPD. Pt has underlying loose stools previously managed w Questran but this med can also constipate her. She notes however that 2 weeks ago started to have more loose stools, almost watery like and "white mucus" floating in commode during BM. Denies any change in diet, sick contact. She is having diffuse abd pain, some n/v, decreased appetite. She denies any rectal bleeding. But having lower abd pain when having BM and also intermittent rectal "jabbing, sharp" pain when sitting down. She had colonoscopy w random bx by Dr. Giraldo in 06/2015, unremarkable. EGD in 06/[address] Fields which showed mild gastritis/duodenitis. Past Medical/Surgical History Medical Problems: (1) Abdominal pain Status: Acute (2) Acute pancreatitis Status: Acute (3) Alcohol intoxication Status: Acute (4) Pancreatitis Status: Acute Past Medical History: HTN, COPD, Depression, Diverticulosis, otherwise as above Past Surgical History: Cholecystectomy Appendectomy Family History No significant family history Unrelated to current admission Social History Smoking Status: Current Every Day Smoker Alcohol Use: other Drug Use: none Marital Status: single Occupation Status: employed Allergies Coded Allergies: Penicillins (Verified Allergy, Intermediate, RASH/HIVES, 06/23/16) Sulfa Antibiotics (Verified Allergy, Intermediate, HIVES, 06/23/16) Codeine (Verified Allergy, Unknown, 06/23/16) Indomethacin (Verified Allergy, Unknown, 06/23/16) Iodine (Verified Allergy, Unknown, 06/23/16) [place] (Verified Allergy, Unknown, 06/23/16) Current Medications Home Meds and Scripts Medications Dose Route/Sig Max Daily Dose Days Date Category Effexor Extended Rel (Venlafaxine Hcl) 75 Mg Capcr 75 Mg PO DAILY 09/21/16 Reported Pantoprazole Sodium (Pantoprazole) 40 Mg Tab 40 Mg PO QAM 30 06/29/16 Rx Losartan Potassium 50 Mg Tab 50 Mg PO DAILY 05/16/16 Reported Combivent Respimat (Ipratropium-Albuterol) 1 Aer Aer 1 Puff PO QID 05/16/16 Reported Review of Systems Constitutional: No fever, No chills Respiratory: No cough, No shortness of breath Cardiac: No chest pain Abdomen: + see HPI, + pain, + nausea, + vomiting, + diarrhea Physical Exam Date Time Temp Pulse Resp B/P (MAP) Pulse Ox O2 Delivery O2 Flow Rate FiO2 09/22/16 11:44 36.5 95 18 123/84 (97) 93 Room Air 09/22/16 08:00 Room Air 09/22/16 07:43 36.5 90 16 141/93 (109) 94 Room Air 09/22/16 04:00 Room Air 09/22/16 04:00 36.4 92 20 133/88 (103) 90 Room Air 09/22/16 00:00 Room Air 09/22/16 00:00 36.5 93 18 126/88 (101) 95 Room Air 09/21/16 20:15 36.6 85 18 132/80 (97) 95 Room Air 09/21/16 20:00 Room Air 09/21/16 18:25 96 20 95 09/21/16 17:55 99 19 126/73 96 Room Air 09/21/16 16:41 99 Room Air 09/21/16 15:52 89 20 135/93 99 Room Air 09/21/16 14:56 90 19 136/91 99 Room Air 09/21/16 13:33 93 09/21/16 13:21 97 16 124/84 95 Room Air 09/21/16 13:21 96 Room Air General Appearance: WD/WN, no apparent distress Eyes: normal inspection, PERRL, EOMI Neck: supple, no JVD, trachea midline Respiratory/Chest: normal breath sounds, no respiratory distress, no accessory muscle use Cardiovascular: regular rate, rhythm, no gallop, no murmur Abdomen: normal bowel sounds, soft, + tenderness (diffuse) Extremities: normal inspection, no pedal edema, no calf tenderness Neurologic/Psych: oriented x 3, + pertinent finding (crying during interview) Skin: normal color, warm/dry, no rash Laboratory Results Last 24 Hours Test 09/21/16 12:44 09/21/16 13:29 09/21/16 19:44 09/22/16 07:28 Bedside Troponin I 0.000 ng/ml Potassium Level 2.3 mmol/L 2.7 mmol/L Magnesium Level 1.4 mg/dl 1.8 mg/dl Aspartate Amino Transf (AST/SGOT) 180 U/L 139 U/L Prothrombin Time 10.9 SECONDS Prothromb Time International Ratio 1.0 Activated Partial Thromboplast Time 22.9 SECONDS Partial Thromboplastin Ratio 0.9 White Blood Count 5.15 K/uL Red Blood Count 3.19 M/uL Hemoglobin 11.6 g/dL Hematocrit 33.1 % Mean Corpuscular Volume 103.8 fL Mean Corpuscular Hemoglobin 36.4 pg Mean Corpuscular Hemoglobin Concent 35.0 g/dl RDW Standard Deviation 57.8 fL RDW Coefficient of Variation 15.1 % Platelet Count 183 K/uL Mean Platelet Volume 10.2 fL Nucleated RBC Absolute Count (auto) 0.08 K/uL Nucleated Red Blood Cells % 1.5 % Sodium Level 138 mmol/L Chloride Level 99 mmol/L Carbon Dioxide Level 26 mmol/L Anion Gap 13.0 mmol/L Blood Urea Nitrogen 7 mg/dl Creatinine 0.90 mg/dl Est Creatinine Clear Calc Drug Dose 81.8 ml/min Estimated GFR () 85.8 Estimated GFR (Non- 74.0 BUN/Creatinine Ratio 7.7 Random Glucose 113 mg/dl Calcium Level 8.0 mg/dl Total Bilirubin 1.5 mg/dl Alanine Aminotransferase (ALT/SGPT) 88 U/L Alkaline Phosphatase 161 U/L Total Protein 6.1 gm/dl Albumin 3.2 gm/dl Globulin 2.9 gm/dl Albumin/Globulin Ratio 1.1 Lipase 799 U/L Test 09/22/16 10:01 Impression Patient is a 51 year old female w hx of ETOH pancreatitis (last ETOH intake 2 weeks ago), hepatic steatosis, currently admitted for low K and Mg, also diarrhea (acute on chronic), n/v x [address] and u/s unremarkable except hepatic steatosis and hepatomegaly. LFTs elevated more than baseline but improving. Lipase in 700s. Differential diagnoses include: ETOH hepatitis ( Maddrey score low, LFT improving thus no indication for steroid use), mild pancreatitis, infectious diarrhea, malabsorption (previous Celiac serology normal), pancreatic insufficiency. Plan - Agree w continuing Questran 4g BID for bile acid diarrhea s/p lap justa - Check stool fat, cx, Cdiff - Trial Dicyclomine 20mg BID for abd pain, cramping - For rectal pain/spasms may try Nitroglycerin 0.2% or Diltiazem 2% rectal ointment to apply qHS prn rectal pain. Unfortunately none available in our pharmacy. May give trial of this upon DC from a pharmacy which can compound this. Otherwise home remedies include warm Sitz baths 2-3x a day. - Monitor LFTs. - Celiac serology normal previously; check Amylase, Lipase, defer Creon start for now for suspected pancreatic insufficiency - Defer to Dr. Giraldo if repeat colonoscopy is warranted upon pt's DC or if diarrhea worse/continues by next week if colonoscopy should be repeated while inpt. - ETOH cessation. - OK to advance diet as tolerated.
[2016-09-22 12:59] LABS: AMYLASE 55 U/L (25-115)
[2016-09-22] MEDS: FAMOTIDINE IV INJ 20 MG in DEXTROSE 5% 100ML 100 ML IV SCH (19:48)
[2016-09-22] MEDS: ENOXAPARIN 40 MG/0.4 ML SYR SC SCH (21:38)
[2016-09-22] MEDS: DICYCLOMINE HCL 20 MG TAB PO SCH (21:39)
[2016-09-22] MEDS: ONDANSETRON INJ 2 MG/ML 2 ML VIAL IV PRN (21:49)
[2016-09-22] MEDS: LORAZEPAM INJ 0.5 MG in SYRINGE 0.75 ML IV PRN (22:09)
[2016-09-23] VITALS (11 sets, daily range): BP systolic 120–142; BP diastolic 80–100; PULSE 82–102; TEMP 36.3–36.8; O2SAT 95–99
[2016-09-23] MEDS: HYDROmorphone INJ 1 MG/ML SYR IV PRN ×5 (02:20→22:07)
[2016-09-23] MEDS: LORAZEPAM INJ 0.5 MG in SYRINGE 0.75 ML IV PRN ×2 (03:47→22:06)
[2016-09-23] MEDS: POTASSIUM CHLORIDE INJ 40 MEQ in SODIUM CHLORIDE 0.9% 1000ML 1,000 ML IV SCH ×4 (03:47→19:59)
[2016-09-23 07:07] LABS: BUN/CREATININE RATIO 5.9 (10-20); CALCIUM 7.6 mg/dl (8.5-10.1); CREATININE 0.71 mg/dl (0.60-1.20); MAGNESIUM 1.8 mg/dl (1.8-2.4); POTASSIUM 3.4 mmol/L (3.5-5.1)
[2016-09-23] MEDS: CHLORDIAZEPOXIDE 25 MG CAP PO SCH ×3 (07:54→20:34)
[2016-09-23] MEDS: LOSARTAN POTASSIUM 50 MG TAB PO SCH (08:03)
[2016-09-23] MEDS: DICYCLOMINE HCL 20 MG TAB PO SCH ×2 (08:03→20:34)
[2016-09-23] MEDS: POTASSIUM CHLORIDE 20 MEQ TABCR PO SCH ×2 (08:03→17:50)
[2016-09-23] MEDS: NICOTINE 21 MG/24 HR TDSY EXT SCH (08:04)
[2016-09-23] MEDS: IPRATROPIUM BROMIDE/ALBUTEROL respimat INH INH SCH ×4 (08:05→20:36)
[2016-09-23] MEDS: FAMOTIDINE IV INJ 20 MG in DEXTROSE 5% 100ML 100 ML IV SCH ×2 (08:50→19:59)
[2016-09-23] MEDS: CHOLESTYRAMINE LIGHT 4 GM PKT PO SCH ×2 (09:49→21:22)
[2016-09-23] MEDS: VENLAFAXINE HCL XR 75 MG CAPXR PO SCH (09:49)
--- NOTE | 2016-09-23 15:11 | Progress Note ---
Subjective Date of Service: Sep 23, 2016. Subjective although clinically consistent with alcohol or BZD withdrawal, but denies use of either again today, started librium with good reduction in tremulousness, she also has had improved liver function tests, although no lipase, despite this improved abdominal pain but persistent nausea and vomiting x1 09/23. Pt refused psychiatry eval per nursing Problem List Medical Problems: (1) Abdominal pain Status: Acute (2) Acute pancreatitis Status: Acute (3) Alcohol intoxication Status: Acute (4) Pancreatitis Status: Acute Review of Systems Constitutional: + weakness, + fatigue, No fever, No chills Respiratory: No cough, No sputum, No wheezing, No shortness of breath Cardiac: No chest pain, No PND, No edema Breast: No breast lump, No change in shape Abdomen: + nausea, + vomiting Musculoskeletal: No joint pain, No muscle pain, No swelling Female : No dysuria, No urinary frequency Psychiatric: + depression symptoms, + anxiety Objective Vital Signs Date Time Temp Pulse Resp B/P (MAP) Pulse Ox O2 Delivery O2 Flow Rate FiO2 09/23/16 07:46 36.4 97 16 142/100 (114) 99 Room Air 09/23/16 04:00 Room Air 09/23/16 03:39 36.4 94 16 136/95 (109) 98 Room Air 09/23/16 00:06 36.7 88 18 132/91 (105) 97 Room Air 09/23/16 00:00 Room Air 09/22/16 20:00 96 Room Air 09/22/16 16:00 96 Room Air 09/22/16 15:27 36.4 86 20 118/83 (95) 96 Room Air 09/22/16 12:00 Room Air 09/22/16 11:44 36.5 95 18 123/84 (97) 93 Room Air Physical Exam General Appearance: WD/WN, + mild distress Eyes: PERRL, EOMI Neck: supple, no JVD Respiratory/Chest: chest non-tender, lungs clear, normal breath sounds Cardiovascular: no murmur, + tachycardia Abdomen: soft, + guarding, + tenderness Extremities: normal range of motion, no pedal edema, no calf tenderness Neurologic/Psychiatric: alert, oriented x 3 Laboratory Results Last 24 Hours Test 09/22/16 10:01 09/22/16 12:14 09/23/16 05:56 Amylase Level 55 U/L Lipase 1078 U/L Sodium Level 147 mmol/L Potassium Level 3.4 mmol/L Chloride Level 110 mmol/L Carbon Dioxide Level 29 mmol/L Anion Gap 8.0 mmol/L Blood Urea Nitrogen 4 mg/dl Creatinine 0.71 mg/dl Est Creatinine Clear Calc Drug Dose 105.5 ml/min Estimated GFR () 114.3 Estimated GFR (Non- 98.6 BUN/Creatinine Ratio 5.9 Random Glucose 114 mg/dl Calcium Level 7.6 mg/dl Magnesium Level 1.8 mg/dl Total Bilirubin 0.9 mg/dl Aspartate Amino Transf (AST/SGOT) 89 U/L Alanine Aminotransferase (ALT/SGPT) 64 U/L Alkaline Phosphatase 144 U/L Total Protein 5.5 gm/dl Albumin 2.7 gm/dl Globulin 2.8 gm/dl Albumin/Globulin Ratio 1.0 Assessment and Plan 51f with profound hypokalemia and hypomagnesemia with electrocardiogram changes. also elevated lft and h/o alcohol use, chronic pancreatitis HYPOKALEMIA, HYPOMAGNESEMIA, replete continue to use ivf containing k+ Chronic pancreatitis. She has no evidence of pancreatic inflammation seen on any of her imaging studies. GI is following discussion of creon but not started clear liquid diet and hydration plus pain control Elevated liver function tests steatohepatitis. improved Chronic diarrhea, no further since beginning Questran, rectal pain also improved HTN losartan Chronic obstructive pulmonary disease, stable, Combivent will be maintained at 1 puff q.i.d. gastritis and duodenitis, Protonix IV prferred. ( national backorder will change to pepcid) depression, Effexor, substance abuse still denies, nicotine patch start librium for anxiety and tremulousness, refused psychiatry eval DVT prevention, Lovenox. The patient is a full code.
[2016-09-23] MEDS: ENOXAPARIN 40 MG/0.4 ML SYR SC SCH (20:35)
[2016-09-24] MEDS ORDERED: NURSING VERBAL MED ORDER ONE ×2 (02:45→18:15)
[2016-09-24] MEDS ORDERED: ZOLPIDEM TARTRATE 5 MG TAB PO PRN (02:45)
[2016-09-24] MEDS: HYDROmorphone INJ 1 MG/ML SYR IV PRN ×3 (02:56→13:52)
[2016-09-24 03:56] VITALS: BP 124/90; PULSE 101; TEMP 36.4; O2SAT 97
[2016-09-24] MEDS: POTASSIUM CHLORIDE INJ 40 MEQ in SODIUM CHLORIDE 0.9% 1000ML 1,000 ML IV SCH ×3 (03:59→19:45)
[2016-09-24 07:33] VITALS: BP 125/83; PULSE 96; TEMP 36.6; O2SAT 98
[2016-09-24 07:34] LABS: MEAN CORPUSCULAR HEMOGLOBIN 35.1 pg (25-34); MEAN CORPUSCULAR HGB CONC 33.1 g/dl (32-36); MEAN PLATELET VOLUME 10.4 fL (7.4-10.4); PLATELET COUNT 197 K/uL (130-400); RED BLOOD COUNT 3.02 M/uL (4.2-5.4); WHITE BLOOD COUNT 4.91 K/uL (4.8-10.8)
[2016-09-24 08:10] LABS: CREATININE 0.69 mg/dl (0.60-1.20)
[2016-09-24 08:11] LABS: MAGNESIUM 1.3 mg/dl (1.8-2.4); POTASSIUM 4.2 mmol/L (3.5-5.1)
[2016-09-24] MEDS: VENLAFAXINE HCL XR 75 MG CAPXR PO SCH (08:28)
[2016-09-24] MEDS: FAMOTIDINE IV INJ 20 MG in DEXTROSE 5% 100ML 100 ML IV SCH ×2 (08:28→19:45)
[2016-09-24] MEDS: POTASSIUM CHLORIDE 20 MEQ TABCR PO SCH ×2 (08:29→17:46)
[2016-09-24] MEDS: CHLORDIAZEPOXIDE 25 MG CAP PO SCH ×3 (08:29→20:41)
[2016-09-24] MEDS: NICOTINE 21 MG/24 HR TDSY EXT SCH (08:29)
[2016-09-24] MEDS: DICYCLOMINE HCL 20 MG TAB PO SCH ×2 (08:30→20:41)
[2016-09-24] MEDS: IPRATROPIUM BROMIDE/ALBUTEROL respimat INH INH SCH ×4 (08:30→20:42)
[2016-09-24] MEDS: LOSARTAN POTASSIUM 50 MG TAB PO SCH (08:30)
[2016-09-24 08:44] LABS: CALCIUM 7.6 mg/dl (8.5-10.1)
[2016-09-24] MEDS ORDERED: THIAMINE HCL INJ 100 MG in SYRINGE 9 ML IV SCH (09:00)
[2016-09-24 09:24] LABS: TOTAL IRON BINDING CAPACITY 128 mcg/dl (250-450)
--- NOTE | 2016-09-24 09:56 | DIAGNOSTIC IMAGING REPORT ---
PA CHEST WITH ABDOMINAL SERIES CLINICAL HISTORY: Nausea and vomiting. FINDINGS: 2 PA chest radiographs are compared to study dated 09/21/2016. The cardiomediastinal silhouette is unremarkable. There are numerous calcified granulomas. The lungs and pleural spaces are otherwise clear. No pneumothorax is seen. The skeletal structures are osteopenic. The bony thorax is grossly intact. Supine and erect abdominal radiographs are correlated with abdominal CT dated 09/21/2016. There is a nonobstructed abdominal bowel gas pattern. No evidence of intraperitoneal free air is seen. Cholecystectomy clips are noted. There is no radiographic evidence of nephrolithiasis. Phleboliths are observed in the pelvis. The liver is enlarged. The lumbosacral spine and bony pelvis appear intact. Sclerotic change is noted in the sacroiliac joints. IMPRESSION: 1. No active disease in the chest. 2. Nonobstructed abdominal bowel gas pattern. 3. Hepatomegaly. Electronically signed by: Reg Ly M.D. 09/24/2016 9:55 AM Dictated Date/Time: 09/24/2016 9:53 AM
[2016-09-24] MEDS: ONDANSETRON INJ 2 MG/ML 2 ML VIAL IV PRN (10:26)
[2016-09-24] MEDS ORDERED: TRAMADOL HCL 50 MG TAB PO PRN (15:00)
[2016-09-24 15:22] VITALS: BP 118/85; PULSE 91; TEMP 36.7; O2SAT 99
[2016-09-24 16:00] VITALS: O2SAT 99
--- NOTE | 2016-09-24 16:53 | Progress Note ---
Subjective Date of Service: Sep 24, 2016. Subjective pt looks clinically improved, still not bowel movements, pain is manageable, still not tolerating po intake much, pain 3/10 dull epigastric worse with food Problem List Medical Problems: (1) Abdominal pain Status: Acute (2) Acute pancreatitis Status: Acute (3) Alcohol intoxication Status: Acute (4) Pancreatitis Status: Acute Review of Systems Constitutional: + weakness, No fever, No chills Respiratory: No cough, No shortness of breath Cardiac: No chest pain, No orthopnea, No edema Abdomen: + pain, + nausea, + vomiting, + constipation, No diarrhea Musculoskeletal: + joint pain, + muscle pain Female : No dysuria, No urinary frequency Neurologic: No memory loss, No paralysis Psychiatric: + depression symptoms, + anxiety Objective Vital Signs Date Time Temp Pulse Resp B/P (MAP) Pulse Ox O2 Delivery O2 Flow Rate FiO2 09/24/16 07:33 36.6 96 16 125/83 (97) 98 Room Air 09/24/16 04:00 Room Air 09/24/16 03:56 36.4 101 18 124/90 (101) 97 Room Air 09/24/16 00:00 Room Air 09/23/16 23:31 36.3 102 16 133/96 (108) 99 Room Air 09/23/16 20:00 96 Room Air 09/23/16 19:47 36.4 101 16 134/89 (104) 99 Room Air 09/23/16 16:00 96 Room Air 09/23/16 15:08 36.8 82 18 137/91 (106) 96 Room Air 09/23/16 12:00 95 Room Air 09/23/16 11:33 36.7 87 16 120/80 (93) 97 Room Air Physical Exam General Appearance: WD/WN, + mild distress Eyes: PERRL, EOMI Respiratory/Chest: chest non-tender, lungs clear, normal breath sounds Cardiovascular: regular rate, rhythm, no murmur Abdomen: normal bowel sounds, soft, + guarding, + tenderness Extremities: no pedal edema, no calf tenderness Neurologic/Psychiatric: alert, oriented x 3 Laboratory Results Last 24 Hours Test 09/24/16 06:52 White Blood Count 4.91 K/uL Red Blood Count 3.02 M/uL Hemoglobin 10.6 g/dL Hematocrit 32.0 % Mean Corpuscular Volume 106.0 fL Mean Corpuscular Hemoglobin 35.1 pg Mean Corpuscular Hemoglobin Concent 33.1 g/dl RDW Standard Deviation 60.1 fL RDW Coefficient of Variation 15.6 % Platelet Count 197 K/uL Mean Platelet Volume 10.4 fL Nucleated RBC Absolute Count (auto) 0.02 K/uL Nucleated Red Blood Cells % 0.3 % Assessment and Plan 51f initially with profound hypokalemia and hypomagnesemia with electrocardiogram changes. also elevated lft and h/o alcohol use, chronic pancreatitis, despite complaints of diarrhea has had no stool since admission, and despite denying alcohol use, clinically seems to be withdrawing( also denied BZD use) HYPOKALEMIA, HYPOMAGNESEMIA, replete and following, continue to use ivf containing k+, additionaL magnesium iv on 09/24 and oral supplements started Chronic pancreatitis. She has no evidence of pancreatic inflammation seen on any of her imaging studies. GI is following discussion of creon but not started clear liquid diet and hydration plus pain control continue, still nauseated supportive care Elevated liver function tests steatohepatitis. improved suggesting maybe from drinking pre hospital macrocytic anemia, check vitamins and iron, begin thiamine and folic acid Chronic diarrhea, no further since beginning Questran, rectal pain also improved , but now with mild persistent abdominal pain ABD x ray 09/24 shows no obstruction or distension and stool in colon HTN losartan Chronic obstructive pulmonary disease, asymptomatic, Combivent will be maintained at 1 puff q.i.d. gastritis and duodenitis, Protonix IV preferred. 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
[2016-09-24] MEDS: MAGNESIUM SULFATE 1GM / D5W 1 GM in PREMIXED IN D5W 100 ML IV SCH ×2 (19:44→20:43)
[2016-09-24] MEDS ORDERED: HYDROmorphone INJ 1 MG/ML SYR IV STA (19:47)
[2016-09-24 20:00] VITALS: O2SAT 99
[2016-09-24 20:14] VITALS: BP 120/90; PULSE 98; TEMP 36.8; O2SAT 99
[2016-09-24] MEDS: ENOXAPARIN 40 MG/0.4 ML SYR SC SCH (20:44)
[2016-09-24] MEDS ORDERED: METRONIDAZOLE 500 MG TAB PO SCH (21:00)
[2016-09-24] MEDS: LORAZEPAM INJ 0.5 MG in SYRINGE 0.75 ML IV PRN (21:53)
--- NOTE | 2016-09-24 23:08 | Progress Note ---
Progress Note Date of Service Sep 24, 2016. Progress Note Was called by nursing that the patient had left AMA and while she was in the lobby with a nurse's aide she had changed her mind and wanted to return to her room. She was in the hospital premises with Hospital personnel during this entire time and hence she was returned back to her room. I spoke to the patient about her concerns of leaving and she stated that she was frustrated with her diarrhea and very tired and just wanted to go home. I reassured the patient and she agreed to stay for further treatment. I was later called by nursing staff that the patient decided to leave AMA again and had called family members to pick her up. She had left by the time I went upstairs to talk to her. Resident Tracking Resident Involvement: [employer] Coverage Note Care Provided: Adult Hospital Medicine
--- NOTE | 2016-09-25 16:14 | Discharge Summary ---
Discharge Summary Date of Service Sep 25, 2016. Discharge Summary Admission Date: Sep 21, 2016 at 16:53 Discharge Date: Sep 24, 2016 Principal Diagnosis: pt left ama Immunizations: Have You Had Influenza Vaccine: No History of Tetanus Vaccine?: Yes History of Pneumococcal: No History of Hepatitis B Vaccine: No Hepatitis Immunization Date: Feb 06, 1990 Hospital Course 51f initially with profound hypokalemia and hypomagnesemia with electrocardiogram changes. also elevated lft and h/o alcohol use, chronic pancreatitis, despite complaints of diarrhea has had no stool since admission, and despite denying alcohol use, clinically seems to be withdrawing( also denied BZD use) Pt left ama just after her C Diff was found to be positive Previously in her stay: HYPOKALEMIA, HYPOMAGNESEMIA, replete and following, continue to use ivf containing k+, additionaL magnesium iv on 09/24 and oral supplements started Chronic pancreatitis. She has no evidence of pancreatic inflammation seen on any of her imaging studies. GI is following discussion of creon but not started clear liquid diet and hydration plus pain control continue, still nauseated supportive care Elevated liver function tests steatohepatitis. improved suggesting maybe from drinking pre hospital macrocytic anemia, check vitamins and iron, begin thiamine and folic acid Chronic diarrhea, no further since beginning Questran, rectal pain also improved , but now with mild persistent abdominal pain ABD x ray 09/24 shows no obstruction or distension and stool in colon HTN losartan Chronic obstructive pulmonary disease, asymptomatic, Combivent will be maintained at 1 puff q.i.d. gastritis and duodenitis, Protonix IV preferred. 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 Total Time Spent: Less than 30 minutes This includes examination of the patient, discharge planning, medication reconciliation, and communication with other providers. Discharge Instructions Please refer to the electronic Patient Visit Report (Discharge Instructions) for additional information.
[2016-09-25] MEDS ORDERED: METR-163 PO (19:10)
[2016-10-13] MEDS ORDERED: VANC1CAP19 PO (11:47)
[2016-10-13] MEDS ORDERED: ZNCS220 PO (11:47)
[2016-10-13] MEDS ORDERED: LPR25 PO (11:47)
[2016-10-13] MEDS ORDERED: RANI150T3 PO (11:47)
[2016-10-13] MEDS ORDERED: MULT-589 PO (11:47)
[2016-10-13] MEDS ORDERED: FLV1 PO (11:47)
[2016-10-13] MEDS ORDERED: ULT50X PO (11:47)
[2016-10-13] MEDS ORDERED: THM100 PO (11:47)
[2016-10-13] MEDS ORDERED: CHLO25CA10 PO (11:47)
== END 2016-09-24 23:40 | disposition left against medical advice (07) | DRG 640 ==
LOC: EDBD 11:45 → C.EDB 11:46 → C.MED 16:53 → ENRESERV 17:39
PROVIDERS: ADMIT Internal Medicine; ATTEND Internal Medicine
DX: E87.6 Hypokalemia (principal); K57.81 Diverticulitis of intestine, part unspecified, with perforation and abscess with bleeding; K86.0 Alcohol-induced chronic pancreatitis; K90.9 Intestinal malabsorption, unspecified; F19.939 Other psychoactive substance use, unspecified with withdrawal, unspecified; E83.42 Hypomagnesemia; R94.31 Abnormal electrocardiogram [ECG] [EKG]; R94.5 Abnormal results of liver function studies; F17.210 Nicotine dependence, cigarettes, uncomplicated; D53.9 Nutritional anemia, unspecified; D64.89 Other specified anemias; F32.9 Major depressive disorder, single episode, unspecified; F41.9 Anxiety disorder, unspecified; I10 Essential (primary) hypertension; J44.9 Chronic obstructive pulmonary disease, unspecified; K29.70 Gastritis, unspecified, without bleeding; J45.909 Unspecified asthma, uncomplicated; K29.80 Duodenitis without bleeding; R16.0 Hepatomegaly, not elsewhere classified; K86.89 Other specified diseases of pancreas; Z53.21 Procedure and treatment not carried out due to patient leaving prior to being seen by health care provider; Z86.39 Personal history of other endocrine, nutritional and metabolic disease; Z86.59 Personal history of other mental and behavioral disorders; Z86.69 Personal history of other diseases of the nervous system and sense organs; Z79.899 Other long term (current) drug therapy

== ENCOUNTER 2016-09-25 15:05 | Emergency (ER) | payer OTHER ==
[~2016-09-25] VITALS: Ht 172.7 cm; Wt 84.2 kg
[~2016-09-25 15:05] MED LIST changes: +EFFSR75 PO
[2016-09-25 15:12] VITALS: Ht 172.7 cm; Wt 84.2 kg
[2016-09-25] MEDS ORDERED: METRONIDAZOLE 250 MG TAB PO STA (16:18)
[2016-09-25] MEDS ORDERED: SODIUM CHLORIDE 0.9% 1000ML 1,000 ML IV STA (16:18)
[2016-09-25 17:31] LABS: ISTAT CARBON DIOXIDE 25 mEq/l (24-31); ISTAT CHLORIDE 104 mEq/L (101-112); ISTAT CREATININE 0.6 mg/dl (0.6-1.3); ISTAT HEMATOCRIT 40 % (37-47); ISTAT HEMOGLOBIN 13.6 g/dl (12.0-16.0); ISTAT IONIZED CALCIUM 1.11 mmol/l (1.12-1.32); ISTAT SODIUM 144 mEq/L (135-144)
[2016-09-25 17:45] LABS: HEMATOCRIT 31.7 % (37-47); MEAN CELL VOLUME 105.3 fL (80-100); MEAN CORPUSCULAR HEMOGLOBIN 35.9 pg (25-34); MEAN CORPUSCULAR HGB CONC 34.1 g/dl (32-36); MEAN PLATELET VOLUME 9.9 fL (7.4-10.4); PLATELET COUNT 236 K/uL (130-400); RED BLOOD COUNT 3.01 M/uL (4.2-5.4)
[2016-09-25] MEDS ORDERED: METR-163 PO (19:10)
--- NOTE | 2016-09-25 19:11 | EMERGENCY ROOM VISIT NOTE ---
History Report prepared by Octavia: Robert Lindquist Under the Supervision of: Dr. Mesfin Ramirez D.O. First contact with patient: 16:07 Chief Complaint: DIARRHEA Stated Complaint: C-DIFF Nursing Triage Summary: Pt states she was an inpt and "got freaked out because of the c. diff and left last night. I figured I should do the right thing and come back." Pt reports diffuse abd pain. Pt reports chronic diarrhea for 15 yrs, worse over the past 2 weeks. N/V. History of Present Illness The patient is a 51 year old female who presents to the Emergency Room with complaints of intermittent, worsening diarrhea beginning the other day. She currently rates her discomfort an 8/10 in severity. The patient states that she was admitted the yesterday and was diagnosed with C-Diff. She reports she is not currently taking any medication. The patient notes that she 'could not take it anymore', so she signed herself out of the hospital last night. She reports that she has had about 5-6 episodes of diarrhea since she left last night, and she typically has 20-25 episodes a day. The patient states she does not know where she got the C-Diff from. She notes that she has had chronic diarrhea for the past 15 years. The patient denies being dehydrated. She reports that she has a history of pancreatitis. Source of History: patient Onset: the other day Position: buttock Symptom Intensity: 8/10 Quality: other (diarrhea) Timing: intermittent Note: Patient denies dehydration. Review of Systems See HPI for pertinent positives & negatives. A total of 10 systems reviewed and were otherwise negative. Past Medical & Surgical Medical Problems: (1) Alcohol Abuse-Unspec (2) Anxiety (3) Anxiety State Nos (4) Asthma, Unspecified (5) Calculus Of Ureter (6) Diverticulosis Colon (W/O Ment Of Hemorrhage) (7) Hypokalemia (8) Hypothyroidism Nos (9) Lumbago (10) Migraine Unspecified W/O Intract Mgrn W/O Status Migrainosus (11) Pancreatitis, acute Surgical Problems: (1) History of cholecystectomy Family History No significant family history Social History Smoking Status: Current Every Day Smoker Alcohol Use: other Drug Use: none Marital Status: single Occupation Status: employed Current/Historical Medications Scheduled Ipratropium-Albuterol (Combivent Respimat), 1 PUFF PO QID Losartan Potassium (Losartan Potassium), 50 MG PO DAILY Metronidazole (Flagyl), 500 MG PO TID Pantoprazole (Pantoprazole Sodium), 40 MG PO QAM Venlafaxine Hcl (Effexor Extended Rel), 75 MG PO DAILY Allergies Coded Allergies: Penicillins (Verified Allergy, Intermediate, RASH/HIVES, 06/23/16) Sulfa Antibiotics (Verified Allergy, Intermediate, HIVES, 06/23/16) Codeine (Verified Allergy, Unknown, 06/23/16) Indomethacin (Verified Allergy, Unknown, 06/23/16) Iodine (Verified Allergy, Unknown, 06/23/16) Ellis (Verified Allergy, Unknown, 06/23/16) Physical Exam Vital Signs Date Time Temp Pulse Resp B/P (MAP) Pulse Ox O2 Delivery O2 Flow Rate FiO2 09/25/16 18:16 84 18 133/97 98 Room Air 09/25/16 15:12 36.9 100 18 117/87 100 Room Air Physical Exam CONSTITUTIONAL/VITAL SIGNS: Reviewed / noted above. GENERAL: Non-toxic in appearance. INTEGUMENTARY: Warm, dry, and [place]. HEAD: Normocephalic. EYES: without scleral icterus or trauma. ENT/OROPHARYNX: clear and moist. LYMPHADENOPATHY/NECK: Is supple without lymphadenopathy or meningismus. RESPIRATORY: Lungs clear and equal. CARDIOVASCULAR: Regular rate and rhythm. GI/ABDOMEN: Soft and nontender. No organomegaly or pulsatile mass. No rebound or guarding. Normal bowel sounds. EXTREMITIES: Warm and well perfused. BACK: No CVA tenderness. NEUROLOGICAL: Intact without focal deficits. PSYCHIATRIC: normal affect. MUSCULOSKELETAL: Normally developed with good muscle tone. Medical Decision & Procedures Laboratory Results 09/25/16 17:34 Test 09/25/16 17:20 09/25/16 17:34 Bedside Hemoglobin 13.6 g/dl (12.0-16.0) Bedside Hematocrit 40 % (37-47) Bedside Sodium 144 mEq/L (135-144) Bedside Potassium 4.5 mEq/L (3.3-5.0) Bedside Chloride 104 mEq/L (101-112) Bedside Total CO2 25 mEq/l (24-31) Anion Gap 21.0 mmol/L (16-25) Bedside Blood Urea Nitrogen < 3 mg/dl (7-18) Bedside Creatinine 0.6 mg/dl (0.6-1.3) Bedside Glucose (other) 82 mg/dl (70-99) Bedside Ionized Calcium (Armando) 1.11 mmol/l (1.12-1.32) Red Blood Count 3.01 M/uL (4.2-5.4) Mean Corpuscular Volume 105.3 fL (80-100) Mean Corpuscular Hemoglobin 35.9 pg (25-34) Mean Corpuscular Hemoglobin Concent 34.1 g/dl (32-36) RDW Standard Deviation 60.0 fL (36.4-46.3) RDW Coefficient of Variation 15.6 % (11.5-14.5) Mean Platelet Volume 9.9 fL (7.4-10.4) Nucleated RBC Absolute Count (auto) 0.06 K/uL (0-0) Nucleated Red Blood Cells % 0.9 % Laboratory results as stated above per my review. Medications Administered Medications (Trade) Dose Ordered Sig/Razia Route Start Time Stop Time Status Last Admin Dose Admin Sodium Chloride 1,000 ml @ 999 mls/hr Q1H1M STAT IV 09/25/16 16:18 09/25/16 17:18 DC 09/25/16 17:01 999 MLS/HR Metronidazole (Flagyl Tab) 500 mg NOW STAT PO 09/25/16 16:18 09/25/16 16:22 DC 09/25/16 17:02 500 MG ED Course 1616: Previous medical records were reviewed. The patient was evaluated in room C06. A complete history and physical examination was performed. 1618: Ordered Flagyl Tab 500mg PO, Sodium Chloride 1000 ml @ 999 mls/hr IV 1907: On reevaluation, the patient is resting and in no distress. I discussed the results and findings with the patient. She verbalized agreement of the treatment plan. The patient was discharged home. Medical Decision Differential diagnosis: Etiologies such as gastroenteritis, food borne illness, infections, appendicitis , diverticulitis, inflammatory bowel disease, obstruction, GI bleed, biliary pathology, as well as others were entertained. Medication Reconciliation: I attest that I have personally reviewed the patient' s current medication list. Blood pressure Screening: Patient was found to have normal blood pressure on screening and does not require follow-up. This is a 51-year-old female who presents to the ED with a chief complaint of C. difficile. The patient was admitted to the hospital recently for pancreatitis and chronic diarrhea. She left the hospital last night after she was told she had C. difficile. She was not started on medication. The patient presents again for evaluation of this. She does have a positive C. difficile test from yesterday evening. The patient otherwise appears well. She is in no acute distress. Her vital signs are stable. Physical exam was unremarkable. She has no abdominal tenderness. Blood work reveals a normal CBC and PRP. The patient was given by mouth Flagyl. She will be discharged on Flagyl. She will follow-up with PCP. Impression Primary Impression: C. difficile diarrhea c diff Scribe Attestation The scribe's documentation has been prepared under my direction and personally reviewed by me in its entirety. I confirm that the note above accurately reflects all work, treatment, procedures, and medical decision making performed by me. Departure Information Dispostion Home / Self-Care Prescriptions Metronidazole (Flagyl) 500 Mg Tab 500 MG PO TID, #30 TAB Prov: Mesfin Ramirez D.O. 09/25/16 Referrals No Doctor, Assigned (PCP) Patient Instructions Clostridium Difficile Infec, My [facility] Additional Instructions Flagyl as prescribed. Follow-up with your doctor for further care and evaluation in 1-2 days. Return to the emergency department for worsening or new symptoms or any concerns. You have been examined and treated today on an emergency basis only. This is not a substitute for, or an effort to provide, complete comprehensive medical care. It is impossible to recognize and treat all injuries or illnesses in a single emergency department visit. It is therefore important that you follow up closely with your doctor. Call as soon as possible for an appointment.
[2016-09-25 19:27] VITALS: BP 133/97; PULSE 84; TEMP 36.9; O2SAT 98
[2016-10-13] MEDS ORDERED: ZNCS220 PO (11:47)
[2016-10-13] MEDS ORDERED: MULT-589 PO (11:47)
[2016-10-13] MEDS ORDERED: FLV1 PO (11:47)
[2016-10-13] MEDS ORDERED: THM100 PO (11:47)
[2016-10-13] MEDS ORDERED: LPR25 PO (11:47)
[2016-10-13] MEDS ORDERED: CHLO25CA10 PO (11:47)
[2016-10-13] MEDS ORDERED: RANI150T3 PO (11:47)
[2016-10-13] MEDS ORDERED: VANC1CAP19 PO (11:47)
[2016-10-13] MEDS ORDERED: ULT50X PO (11:47)
== END 2016-09-25 19:28 | disposition home or self-care (01) ==
LOC: C.EDB 15:07 → C.EDC 19:28
DX: A04.7 Enterocolitis due to Clostridium difficile (principal); F17.210 Nicotine dependence, cigarettes, uncomplicated

== ENCOUNTER 2016-10-09 14:35 | Inpatient (IN) | payer OTHER ==
[~2016-10-09] VITALS: Ht 172.7 cm; Wt 81.9 kg
[~2016-10-09 14:35] MED LIST changes: -CRFUDL PO; +METR-163 PO; -OXYC1TAB3 PO
[2016-10-09] MEDS ORDERED: ONDANSETRON INJ 2 MG/ML 2 ML VIAL IV STA (15:02)
[2016-10-09] MEDS ORDERED: METRONIDAZOLE 500MG / 100ML NSS IV STA (15:02)
[2016-10-09] MEDS ORDERED: PROMETHAZINE HCL INJ 25 MG/ML 1 ML VIAL IV STA (15:02)
[2016-10-09] MEDS ORDERED: SODIUM CHLORIDE 0.9% 1000ML 1,000 ML IV STA ×2 (15:02)
[2016-10-09 15:14] LABS: BASO % 1.1 %; BASO ABS # 0.08 K/uL (0-0.2); COMPLETE YES; EOS % 0.4 %; HEMATOCRIT 34.3 % (37-47); LYMPH % 22.6 %; MEAN CELL VOLUME 107.9 fL (80-100); MEAN CORPUSCULAR HEMOGLOBIN 35.8 pg (25-34); MEAN CORPUSCULAR HGB CONC 33.2 g/dl (32-36); MEAN PLATELET VOLUME 9.1 fL (7.4-10.4); MONO % 9.2 %; NEUT % 65.7 %; PLATELET COUNT 320 K/uL (130-400); RED BLOOD COUNT 3.18 M/uL (4.2-5.4); WHITE BLOOD COUNT 7.08 K/uL (4.8-10.8)
[2016-10-09] MEDS ORDERED: SODIUM CHLORIDE 0.9% 1000ML 500 ML IV ONE ×2 (15:18)
[2016-10-09] MEDS: MoRPHine SULFATE 4 MG/ML 1 ML CARP\\VIAL IV PRN ×3 (15:24→19:22)
[2016-10-09 15:58] LABS: BUN/CREATININE RATIO 9.9 (10-20); CALCIUM 8.1 mg/dl (8.5-10.1); CREATININE 0.67 mg/dl (0.60-1.20); MAGNESIUM 1.2 mg/dl (1.8-2.4); POTASSIUM 3.1 mmol/L (3.5-5.1)
[2016-10-09] MEDS ORDERED: MAGNESIUM SULFATE 1GM / D5W 1 GM BAG IV STA (16:04)
[2016-10-09] MEDS ORDERED: PROMETHAZINE HCL INJ 12.5 MG in SODIUM CHLORIDE 0.9% 50ML 50 ML IV STA (16:13)
--- NOTE | 2016-10-09 16:18 | DIAGNOSTIC IMAGING REPORT ---
CT SCAN OF THE ABDOMEN AND PELVIS WITHOUT CONTRAST CLINICAL HISTORY: Generalized abdominal pain, nausea and vomiting, possible colitis, possible C. difficile. COMPARISON STUDY: 09/21/2016 TECHNIQUE: CT scan of the abdomen and pelvis was performed from the lung bases to the proximal femurs. Images are reviewed in the axial, sagittal, and coronal planes. IV contrast was not administered for this examination. CT DOSE: 564.57 mGy.cm FINDINGS: Lower chest: There is scattered calcified granulomas. There is no significant pleural fluid Liver: There is severe hepatic steatosis. There is a stable 1.5 cm right lobe nodule. Gallbladder: Surgically absent Spleen: Normal in size and attenuation. Pancreas: Unremarkable. Adrenal glands: Unremarkable. Kidneys: The unenhanced kidneys are normal in size without hydronephrosis. There is no contour deforming renal mass lesion. No renal calculi are identified. Bowel: Evaluation the bowel is limited given the lack of intravenous and orally administered contrast. There are no transition zones to indicate bowel obstruction. By history the appendix is absent. There is mild submucosal fat hypertrophy within the colon similar to the prior study. There is borderline bowel wall thickening involving the left colon and rectosigmoid. A colitis cannot be excluded. There is scattered colonic diverticula. Peritoneum: There is no intraperitoneal free air or abdominal ascites. Vasculature: The abdominal aorta is normal in course and caliber. Adenopathy: None. Pelvic viscera: The uterus is surgically absent Skeletal structures: No destructive osseous lesions are seen. IMPRESSION: 1. Severe hepatic steatosis 2. Stable 1.5 cm lesion within the right hepatic lobe 3. Stable submucosal fat hypertrophy in the colon 4. No evidence of bowel obstruction. No evidence of free air 5. Borderline bowel wall thickening involving the descending colon and rectosigmoid. A colitis cannot be excluded Electronically signed by: Ramon Dominique M.D. 10/09/2016 4:17 PM Dictated Date/Time: 10/09/2016 4:12 PM
[2016-10-09] MEDS ORDERED: RASPBERRY SYRUP 5 ML UDP PO ONE (17:00)
[2016-10-09] MEDS ORDERED: VANCOMYCIN HCL 125 MG/2.5ML SOLN PO ONE (17:00)
[2016-10-09 17:58] LABS: URINE APPEARANCE CLEAR (CLEAR); URINE BILIRUBIN NEG (NEG); URINE COLOR YELLOW; URINE EPITHELIAL CELL AUTO >30 /lpf (0-5); URINE NITRITE NEG (NEG); URINE PH 5.5 (4.5-7.5); URINE SPECIFIC GRAVITY 1.013 (1.000-1.030); UROBILINOGEN NEG (NEG); ZZUR CULT IF INDIC CLEAN CATCH NO
--- NOTE | 2016-10-09 18:03 | EMERGENCY ROOM VISIT NOTE ---
History Report prepared by Octavia: Homero Vang Under the Supervision of: Dr. Reg Cam M.D. First contact with patient: 14:54 Chief Complaint: REFERRED BY DOCTOR Stated Complaint: DRJaylan SENT PATIENT TO ER History of Present Illness The patient is a 51 year old female who presents to the Emergency Room with complaints of worsening diarrhea beginning five days ago. She was diagnosed with C Diff 15 days ago. She was seen by her PCP just prior to arrival and was referred to the ED. The patient states that her symptoms associated with C Diff have not improved. She also complains of vomiting and constant abdominal pain which worsens with bowel movements. She states that she had had 16 episodes of diarrhea and five episodes of vomiting today. She had 27 episodes of diarrhea yesterday and notes that she noticed blood in her diarrhea. She feels that she likely has hemorrhoids. The patient notes that she was vomiting a lot following her initial diagnosis of c-diff and feels that she may have been vomiting up her medication. She notes that she has been incredibly thirsty. She states that she has eaten very little in the past five days, and what she has eaten has been vomited out. She notes that she was hospitalized with pancreatitis when she was initially found to have C Diff. Source of History: patient Onset: Five days ago Symptom Intensity: 16 episodes today Quality: other (diarrhea) Timing: worsening Associated Symptoms: + vomiting, + abdominal pain (constant, worse with eating) Review of Systems See HPI for pertinent positives & negatives. A total of 10 systems reviewed and were otherwise negative. Past Medical & Surgical Medical Problems: (1) Alcohol Abuse-Unspec (2) Anxiety (3) Anxiety State Nos (4) Asthma, Unspecified (5) Calculus Of Ureter (6) Diverticulosis Colon (W/O Ment Of Hemorrhage) (7) Hypokalemia (8) Hypothyroidism Nos (9) Lumbago (10) Migraine Unspecified W/O Intract Mgrn W/O Status Migrainosus (11) Pancreatitis, acute Surgical Problems: (1) History of cholecystectomy Family History No significant family history Social History Smoking Status: Current Every Day Smoker Alcohol Use: other Drug Use: none Marital Status: single Occupation Status: employed Current/Historical Medications Scheduled Ipratropium-Albuterol (Combivent Respimat), 1 PUFF PO QID Losartan Potassium (Losartan Potassium), 50 MG PO DAILY Metronidazole (Flagyl), 500 MG PO TID Pantoprazole (Pantoprazole Sodium), 40 MG PO QAM Venlafaxine Hcl (Effexor Extended Rel), 75 MG PO DAILY Allergies Coded Allergies: Penicillins (Verified Allergy, Intermediate, RASH/HIVES, 06/23/16) Sulfa Antibiotics (Verified Allergy, Intermediate, HIVES, 06/23/16) Codeine (Verified Allergy, Unknown, 06/23/16) Indomethacin (Verified Allergy, Unknown, 06/23/16) Iodine (Verified Allergy, Unknown, 06/23/16) [place] (Verified Allergy, Unknown, 06/23/16) Physical Exam Vital Signs Date Time Temp Pulse Resp B/P (MAP) Pulse Ox O2 Delivery O2 Flow Rate FiO2 10/09/16 17:20 102 16 148/100 97 Room Air 10/09/16 16:40 100 16 141/86 96 Room Air 10/09/16 16:19 110 16 159/101 94 Room Air 10/09/16 15:37 105 16 166/106 10/09/16 15:23 102 10/09/16 14:40 36.9 107 18 146/99 97 Room Air Physical Exam GENERAL: Patient is in no acute distress. HEENT: No acute trauma, normocephalic atraumatic, mucous membranes dry, no nasal congestion, no scleral icterus. NECK: No stridor, no adenopathy, no meningismus, trachea is midline. LUNGS: Clear to auscultation bilaterally, no wheeze, no rhonchi, breath sounds equal. HEART: Tachycardic with a regular rhythm. No murmurs. ABDOMEN: Soft, moderately diffusely tender, bowel sounds positive, no hernias, no peritonitis. EXTREMITIES: No cyanosis or edema, full range of motion of all the joints without pain or difficulty, no signs for acute trauma. NEUROLOGIC: Oriented x 3, no acute motor or sensory deficits, no focal weakness. SKIN: No rash, no jaundice, no diaphoresis. Medical Decision & Procedures ER Provider Diagnostic Interpretation: CT results as stated below per my review and radiologist interpretation: CT SCAN OF THE ABDOMEN AND PELVIS WITHOUT CONTRAST FINDINGS: Lower chest: There is scattered calcified granulomas. There is no significant pleural fluid Liver: There is severe hepatic steatosis. There is a stable 1.5 cm right lobe nodule. Gallbladder: Surgically absent Spleen: Normal in size and attenuation. Pancreas: Unremarkable. Adrenal glands: Unremarkable. Kidneys: The unenhanced kidneys are normal in size without hydronephrosis. There is no contour deforming renal mass lesion. No renal calculi are identified. Bowel: Evaluation the bowel is limited given the lack of intravenous and orally administered contrast. There are no transition zones to indicate bowel obstruction. By history the appendix is absent. There is mild submucosal fat hypertrophy within the colon similar to the prior study. There is borderline bowel wall thickening involving the left colon and rectosigmoid. A colitis cannot be excluded. There is scattered colonic diverticula. Peritoneum: There is no intraperitoneal free air or abdominal ascites. Vasculature: The abdominal aorta is normal in course and caliber. Adenopathy: None. Pelvic viscera: The uterus is surgically absent Skeletal structures: No destructive osseous lesions are seen. IMPRESSION: 1. Severe hepatic steatosis 2. Stable 1.5 cm lesion within the right hepatic lobe 3. Stable submucosal fat hypertrophy in the colon 4. No evidence of bowel obstruction. No evidence of free air 5. Borderline bowel wall thickening involving the descending colon and rectosigmoid. A colitis cannot be excluded Electronically signed by: Ramon Dominique M.D. Laboratory Results 10/09/16 15:00 Red Blood Count 3.18, Mean Corpuscular Volume 107.9, Mean Corpuscular Hemoglobin 35.8, Mean Corpuscular Hemoglobin Concent 33.2, Mean Platelet Volume 9.1, Neutrophils (%) (Auto) 65.7, Lymphocytes (%) (Auto) 22.6, Monocytes (%) ( Auto) 9.2, Eosinophils (%) (Auto) 0.4, Basophils (%) (Auto) 1.1, Neutrophils # ( Auto) 4.65, Lymphocytes # (Auto) 1.60, Monocytes # (Auto) 0.65, Eosinophils # ( Auto) 0.03, Basophils # (Auto) 0.08 10/09/16 15:00 Test 10/09/16 15:00 10/09/16 15:12 10/09/16 17:40 White Blood Count 7.08 K/uL (4.8-10.8) Red Blood Count 3.18 M/uL (4.2-5.4) Hemoglobin 11.4 g/dL (12.0-16.0) Hematocrit 34.3 % (37-47) Mean Corpuscular Volume 107.9 fL (80-100) Mean Corpuscular Hemoglobin 35.8 pg (25-34) Mean Corpuscular Hemoglobin Concent 33.2 g/dl (32-36) Platelet Count 320 K/uL (130-400) Mean Platelet Volume 9.1 fL (7.4-10.4) Neutrophils (%) (Auto) 65.7 % Lymphocytes (%) (Auto) 22.6 % Monocytes (%) (Auto) 9.2 % Eosinophils (%) (Auto) 0.4 % Basophils (%) (Auto) 1.1 % Neutrophils # (Auto) 4.65 K/uL (1.4-6.5) Lymphocytes # (Auto) 1.60 K/uL (1.2-3.4) Monocytes # (Auto) 0.65 K/uL (0.11-0.59) Eosinophils # (Auto) 0.03 K/uL (0-0.5) Basophils # (Auto) 0.08 K/uL (0-0.2) RDW Standard Deviation 62.3 fL (36.4-46.3) RDW Coefficient of Variation 16.0 % (11.5-14.5) Immature Granulocyte % (Auto) 1.0 % Immature Granulocyte # (Auto) 0.07 K/uL (0.00-0.02) Anion Gap 19.0 mmol/L (3-11) Est Creatinine Clear Calc Drug Dose 110.1 ml/min Estimated GFR () 118.0 Estimated GFR (Non- 101.8 BUN/Creatinine Ratio 9.9 (10-20) Calcium Level 8.1 mg/dl (8.5-10.1) Magnesium Level 1.2 mg/dl (1.8-2.4) Total Bilirubin 1.1 mg/dl (0.2-1) Aspartate Amino Transf (AST/SGOT) 76 U/L (15-37) Alanine Aminotransferase (ALT/SGPT) 42 U/L (12-78) Alkaline Phosphatase 197 U/L (45-117) Total Protein 6.9 gm/dl (6.4-8.2) Albumin 3.5 gm/dl (3.4-5.0) Globulin 3.4 gm/dl (2.5-4.0) Albumin/Globulin Ratio 1.0 (0.9-2) Lipase 258 U/L (73-393) Bedside Lactic Acid Venous 5.98 mmol/L (0.90-1.70) Urine Color YELLOW Urine Appearance CLEAR (CLEAR) Urine pH 5.5 (4.5-7.5) Urine Specific [place] 1.013 (1.000-1.030) Urine Protein NEG (NEG) Urine Glucose (UA) NEG (NEG) Urine Ketones TRACE (NEG) Urine Occult Blood NEG (NEG) Urine Nitrite NEG (NEG) Urine Bilirubin NEG (NEG) Urine Urobilinogen NEG (NEG) Urine Leukocyte Esterase TRACE (NEG) Urine WBC (Auto) 1-5 /hpf (0-5) Urine RBC (Auto) 0-4 /hpf (0-4) Urine Hyaline Casts (Auto) 1-5 /lpf (0-5) Urine Epithelial Cells (Auto) >30 /lpf (0-5) Urine Bacteria (Auto) NEG (NEG) Laboratory results reviewed by me. Medications Administered Medications (Trade) Dose Ordered Sig/Razia Route Start Time Stop Time Status Last Admin Dose Admin Ondansetron HCl (Zofran Inj) 4 mg NOW STAT IV 10/09/16 15:02 10/09/16 15:09 DC 10/09/16 15:24 4 MG Sodium Chloride 1,000 ml @ 200 mls/hr Q5H STAT IV 10/09/16 15:02 10/09/16 20:01 DC 10/09/16 17:19 200 MLS/HR Sodium Chloride 1,000 ml @ 999 mls/hr Q1H1M STAT IV 10/09/16 15:02 10/09/16 16:02 DC 10/09/16 15:24 999 MLS/HR Morphine Sulfate (MoRPHine SULFATE INJ) 4 mg Q30M PRN IV 10/09/16 15:15 10/09/16 20:11 DC 10/09/16 19:22 4 MG Metronidazole (Flagyl / Nss) 500 mg NOW STAT IV 10/09/16 15:02 10/09/16 15:09 DC 10/09/16 15:36 500 MG Sodium Chloride 500 ml @ 999 mls/hr Q31M ONCE IV 10/09/16 15:18 10/09/16 15:48 DC 10/09/16 16:35 999 MLS/HR Sodium Chloride 500 ml @ 999 mls/hr Q31M ONCE IV 10/09/16 15:18 10/09/16 15:48 DC 10/09/16 16:41 999 MLS/HR Magnesium Sulfate (Magnesium Sulfate) 2 gm NOW STAT IV 10/09/16 16:04 10/09/16 16:05 DC 10/09/16 16:18 2 GM Promethazine HCl 12.5 mg/Sodium Chloride 50.5 ml @ 202 mls/hr NOW STAT IV 10/09/16 16:13 10/09/16 16:27 DC 10/09/16 16:40 202 MLS/HR Vancomycin HCl (Vancomycin Oral Soln) 125 mg NOW ONCE PO 10/09/16 17:00 10/09/16 17:01 DC 10/09/16 17:19 125 MG Raspberry (Raspberry Syrup 5ml Cup) 5 ml NOW ONCE PO 10/09/16 17:00 10/09/16 17:01 DC 10/09/16 17:19 5 ML Sodium Chloride 1,000 ml @ 80 mls/hr [id number] IV 10/09/16 18:59 11/08/16 18:58 10/09/16 20:58 80 MLS/HR ED Course 1457: The patient was evaluated in room B8. A complete history and physical exam was performed. 1502: Ordered Flagyl / NSS 500 mg IV, Sodium Chloride 1000 ml @ 999 mls/hr IV, Sodium Chloride 1000 ml @ 200 mls/hr IV, Zofran Inj 4 mg IV, Phenergan Inj 12.5 mg IV. 1515: Ordered Morphine Sulfate 4 mg IV. 1518: Ordered Sodium Chloride 500 ml @ 999 mls/hr IV, Sodium Chloride 500 ml @ 999 mls/hr IV. 1604: Ordered Magnesium Sulfate 2 gm IV. 1613: Ordered Promethazine HCl 12.5 mg/Sodium Chloride 59.5 ml @ 202 mls/hr IV. 1644: Upon reexamination the patient is resting comfortably. She feels better. I discussed results and treatment plan with the patient. She verbalizes agreement and understanding. The patient will be evaluated for further management. Medical Decision The patient is a 51 year old female who presents to the ED with complaints of worsening diarrhea. Differential diagnoses considered include dehydration, electrolyte imbalance, renal failure, colitis, diverticulitis, C Diff colitis, failed outpatient treatment and viral illness. Blood pressure screening: Patient was found to have a slightly elevated blood pressure due to circumstances. I do not believe that the patient requires hypertension monitoring. Medication Reconciliation: I attest that I have personally reviewed the patient' s current medication list. There is no leukocytosis or concerning anemia. Lactic acid level is quite elevated at nearly 6, this is consistent with sepsis and/or dehydration. Renal panel testing does not demonstrate renal failure or significant electrolyte abnormality. There was a mild elevation to the liver enzymes. Stool culture and stool C. difficile testing are pending as the patient has not yet provided a sample. Abdominal and pelvis CT shows a possible mild colitis, no abscess or bowel obstruction. Urinalysis does not show evidence for infection. Blood cultures are pending. There was no pancreatitis. The patient was aggressively managed. She received IV saline, she received IV magnesium and IV Flagyl. She was given oral vancomycin. She received IV morphine for pain, IV Phenergan for nausea. The patient is quite ill from this C. difficile infection. She has failed outpatient treatment. Admission/observation is clearly warranted. I spoke to the patient and case management. The on-call hospitalist was consulted. Consults Time Called: 1639 Consulting Physician: Dr. Joshi -[facility] [place] Returned Call: [phone] Discussed the patient's case. The patient will be evaluated for further management. Impression Primary Impression: C. difficile colitis Additional Impressions: Lactic acidosis Hypomagnesemia Dehydration Scribe Attestation The scribe's documentation has been prepared under my direction and personally reviewed by me in its entirety. I confirm that the note above accurately reflects all work, treatment, procedures, and medical decision making performed by me. Departure Information Dispostion Being Evaluated By Hospitalist Referrals No Doctor, Assigned (PCP) Patient Instructions My [facility] Problem Qualifiers
[2016-10-09 18:04] LABS: MANUAL MICROSCOPIC REQUIRED? NO; REVIEW REQ? NO
[2016-10-09] MEDS ORDERED: SODIUM CHLORIDE 0.9% 1000ML 1,000 ML IV SCH (18:59)
[2016-10-09] MEDS ORDERED: ACETAMINOPHEN 325 MG TAB PO PRN (19:00)
[2016-10-09] MEDS ORDERED: BUTT PASTE 171 APPLN/57 GM JAR EXT PRN (19:00)
[2016-10-09] MEDS ORDERED: POTASSIUM CHLORIDE 10 MEQ TABCR PO ONE (19:15)
[2016-10-09 19:19] VITALS: Ht 172.7 cm; Wt 81.9 kg
[2016-10-09] MEDS ORDERED: NICOTINE 21 MG/24 HR TDSY TD ONE (19:30)
[2016-10-09 20:00] VITALS: O2SAT 98
--- NOTE | 2016-10-09 20:05 | HISTORY & PHYSICAL EXAMINATION ---
DATE OF ADMISSION: 10/09/2016 CHIEF COMPLAINT: Diarrhea. HISTORY OF PRESENT ILLNESS: The patient is a 51-year-old female who has been recently diagnosed with Clostridium difficile and was on Flagyl p.o. The patient was vomiting the last few days and was not taking her Flagyl. The patient stated that the diarrhea got much worse, yesterday she had 24 episodes of diarrhea and today she had about 16 episodes of diarrhea so far. Also, she had multiple episodes of vomiting 4-5 every day. The patient felt severely weak and presented to the ED for further evaluation and management. Admits to abdominal pain, tenderness and stated that when she wiped herself really hard she had a little bit of blood in the tissue, but other than that denies any headache, double vision, blurry vision. Denies any chest pain, palpitations. Denies any cough, wheezing, shortness of breath. Denies any focal weakness, tingling, numbness. Denies any rash or joint swelling or pain. Rest of the review of systems is negative. PAST MEDICAL HISTORY: 1. Alcohol abuse, as per the patient she stopped that. 2. Tobacco abuse. She is currently a smoker. 3. Anxiety. 4. Asthma. 5. Diverticulosis of the colon. 6. Electrolyte imbalance. 7. Hypothyroidism. 8. Migraine. 9. History of cholecystectomy. FAMILY HISTORY: Noncontributory. SOCIAL HISTORY: The patient is currently everyday smoker, lives by herself, single, employed. Denies alcohol abuse. CURRENT HOME MEDICATIONS: 1. Combivent inhaler. 2. Losartan 50 mg daily. 3. Flagyl 500 mg p.o. t.i.d. 4. Pantoprazole 40 mg q.a.m. 5. Effexor extended release 75 mg p.o. daily. ALLERGIES: PENICILLIN/SULFA/CODEINE/INDOMETHACIN/IODINE/PEACH. PHYSICAL EXAMINATION: VITAL SIGNS: Temperature 36.9, heart rate 102, respirations 16, blood pressure 148/100, pulse ox 97% on room air. HEENT: No jaundice, no pallor, wet mucous membranes. GENERAL: The patient appears in mild distress and average built. NECK: Supple. No stridor. LUNGS: Clear to auscultation bilaterally. Normal chest wall expansion. Breath sounds are equal. No rhonchi. HEART: S1, S2. Slightly tachycardic. No murmur or rub noted. ABDOMEN: Soft, but tender. No guarding or rebound. Appears to be slightly distended. NEUROLOGIC: Awake, alert and oriented to time, place, and person. Moves all extremities. Sensation intact. Cranial nerves II through XII appears to be intact. SKIN: No rash. JOINTS: No swelling, erythema, or decreased range of motion. MUSCULOSKELETAL: No cyanosis or edema. IMAGIN. CT scan of abdomen was obtained, showed severe hepatic steatosis. 2. Stable 1.5 cm lesion within the right hepatic lobe. 3. Stable submucosal fat hypertrophy in the colon. No evidence of bowel obstruction, or presence of free air. 4. Borderline bowel wall thickening involving descending colon and rectosigmoid, colitis cannot be excluded. LABORATORY DATA: White blood cell count is 7, hemoglobin is 11.4, platelets 320. BUN is 7, creatinine 0.67. Sodium 141, potassium is 3.1. ASSESSMENT: 1. Severe diarrhea/vomiting likely secondary to Clostridium difficile. 2. Partially treated Clostridium difficile. The patient did not tolerate taking p.o. Flagyl. 3. Electrolyte imbalance. Hypomagnesemia and hypokalemia. 4. Tobacco abuse. 5. Severe hepatic steatosis. 6. Stable 1.5 right lobe nodule of the liver. 7. Asthma. 8. History of pancreatitis in the past. PLAN: 1. Admit the patient to telemetry for her electrolyte imbalance. 2. IV fluid hydration. 3. Follow up electrolytes and labs in a.m. 4. Replace the potassium and magnesium. 5. Initiate vancomycin p.o. as she is considered failed Flagyl. 6. Continue her home meds except pantoprazole will stop that due to its contributory effect on C. diff. 7. Will switch pantoprazole to Pepcid IV b.i.d. 8. Zinc oxide for rectal area laceration present on admission, inflammation from the diarrhea stools. 9. DVT prophylaxis with Lovenox. 10. If no improvement, consider a GI consult to rule out IBD.
[2016-10-09] MEDS ORDERED: MAGNESIUM SULFATE 1GM / D5W 1 GM in PREMIXED IN D5W 100 ML IV STA (20:11)
[2016-10-09 20:21] VITALS: BP 153/105; PULSE 96; TEMP 36.9; O2SAT 94
[2016-10-09] MEDS: FAMOTIDINE IV INJ 20 MG in DEXTROSE 5% 100ML 100 ML IV SCH (20:58)
[2016-10-09] MEDS: ENOXAPARIN 40 MG/0.4 ML SYR SC SCH (21:01)
[2016-10-09] MEDS ORDERED: LORAZEPAM INJ 0.5 MG in SYRINGE 0.75 ML IV PRN (22:30)
[2016-10-09] MEDS: TRAMADOL HCL 50 MG TAB PO PRN (23:01)
[2016-10-09] MEDS: LORAZEPAM 2 MG/ML 1 ML VIAL IV PRN (23:04)
[2016-10-09] MEDS: IPRATROPIUM BROMIDE/ALBUTEROL respimat INH INH SCH (23:14)
[2016-10-10] VITALS (10 sets, daily range): BP systolic 132–168; BP diastolic 91–114; PULSE 91–128; TEMP 36.6–37.3; O2SAT 92–98
[2016-10-10] MEDS: RASPBERRY SYRUP 5 ML UDP PO SCH ×4 (00:30→17:42)
[2016-10-10] MEDS: VANCOMYCIN HCL 250 MG/5 ML SOLN PO SCH ×2 (00:31→06:10)
[2016-10-10] MEDS: TRAMADOL HCL 50 MG TAB PO PRN ×2 (04:14→09:09)
[2016-10-10] MEDS: LORAZEPAM 2 MG/ML 1 ML VIAL IV PRN ×3 (04:14→21:38)
[2016-10-10 07:12] LABS: BASO % 1.3 %; BASO ABS # 0.05 K/uL (0-0.2); EOS % 2.6 %; HEMATOCRIT 29.7 % (37-47); IG% 0.8 %; LYMPH % 29.4 %; LYMPH ABS # 1.11 K/uL (1.2-3.4); MEAN CELL VOLUME 110.8 fL (80-100); MEAN CORPUSCULAR HEMOGLOBIN 36.6 pg (25-34); MEAN PLATELET VOLUME 8.9 fL (7.4-10.4); MONO % 11.6 %; NEUT % 54.3 %; PLATELET COUNT 234 K/uL (130-400); RED BLOOD COUNT 2.68 M/uL (4.2-5.4); WHITE BLOOD COUNT 3.78 K/uL (4.8-10.8)
[2016-10-10] MEDS ORDERED: GABAPENTIN 800 MG TAB PO SCH (07:45)
[2016-10-10] MEDS ORDERED: LORAZEPAM 2 MG/ML 1 ML VIAL IV PRN (07:45)
[2016-10-10] MEDS ORDERED: LORAZEPAM 1 MG TAB PO PRN (07:45)
[2016-10-10 07:48] LABS: ANISOCYTOSIS PRESENT; COMPLETE YES; STOMATOCYTE 1+
[2016-10-10 07:53] LABS: BUN/CREATININE RATIO 7.6 (10-20); CALCIUM 6.6 mg/dl (8.5-10.1); CREATININE 0.52 mg/dl (0.60-1.20); MAGNESIUM 1.8 mg/dl (1.8-2.4); PHOSPHORUS 2.2 mg/dl (2.5-4.9); POTASSIUM 3.1 mmol/L (3.5-5.1)
[2016-10-10] MEDS ORDERED: GABAPENTIN 800MG LOADING DOSE PO SCH (08:00)
[2016-10-10] MEDS ORDERED: POTASSIUM CHLORIDE 10 MEQ TABCR PO ONE (08:45)
[2016-10-10] MEDS: THIAMINE HCL INJ 200 MG in SODIUM CHLORIDE 0.9% 50ML 50 ML IV SCH ×2 (09:06→20:54)
[2016-10-10] MEDS: IPRATROPIUM BROMIDE/ALBUTEROL respimat INH INH SCH ×4 (09:06→20:27)
[2016-10-10] MEDS: FAMOTIDINE IV INJ 20 MG in DEXTROSE 5% 100ML 100 ML IV SCH ×2 (09:06→20:54)
[2016-10-10] MEDS: FoLIC ACID INJ 1 MG in SYRINGE 9.8 ML IV SCH (09:08)
[2016-10-10] MEDS: CEROVITE ADV FORMULA TAB PO SCH (09:08)
[2016-10-10] MEDS: POTASSIUM CHLORIDE 10 MEQ TABCR PO SCH (09:10)
[2016-10-10] MEDS: VENLAFAXINE HCL XR 75 MG CAPXR PO SCH (09:11)
[2016-10-10] MEDS: NICOTINE 21 MG/24 HR TDSY TD SCH (09:12)
[2016-10-10] MEDS: POTASSIUM CHLORIDE INJ 20 MEQ in SODIUM CHLORIDE 0.9% 1000ML 1,000 ML IV SCH ×2 (10:16→21:24)
[2016-10-10] MEDS ORDERED: VANCOMYCIN HCL 250 MG/5 ML SOLN PO SCH (12:00)
--- NOTE | 2016-10-10 12:56 | Hospitalist Progress Note ---
Hospitalist Progress Note Date of Service Oct 10, 2016. (Karli Alfaro PA-C) Subjective Pt evaluation today including: conversation w/ patient, physical exam, chart review Patient seen and evaluated. Admitted yesterday for frequent diarrhea and previous diagnosis of C. diff on Flagyl x 10 days. She was dx on September 25 and reports completed Flagyl course x 10 days but experienced vomiting with taking this medication. Has a significant history of ETOH use but reports she has stopped this since her pancreatitis. Does report a glass of wine a couple week ago. Possibly ETOH and Flagyl interaction? Does report chronic hand tremors that is worse in the AM and improves throughout the day. Constitutional: No fever, No chills ENT: No nasal symptoms, No sore throat, No trouble swallowing Respiratory: + cough (chronic "from smoking"), No wheezing, No shortness of breath Cardiovascular: No chest pain Abdomen: + pain (diffuse worse in epigatric region and LLQ), + vomiting, + diarrhea, + GI bleeding (bright red blood with wiping only intermittently) Musculoskeletal: No swelling, No calf pain Female : No dysuria Neurologic: + problem reported (tremors bilateral hands - worse in AM and improves throughout the day) Psychiatric: + anxiety (chronic) Heme: No abnormal bleeding/bruising Skin: + problem reported (dry skin) (Karli Alfaro, CHRISSYC) Medications Current Inpatient Medications Medications (Trade) Dose Ordered Sig/Razia Route Start Time Stop Time Status Last Admin Dose Admin Albuterol/ Ipratropium (Combivent Respimat Inh) 1 puffs QID INH 10/09/16 21:00 11/08/16 20:59 10/10/16 13:02 1 PUFFS Venlafaxine HCl (effeXOR EXTENDED REL CAP) 75 mg DAILY PO 10/10/16 09:00 11/09/16 08:59 10/10/16 09:11 75 MG Enoxaparin Sodium (Lovenox Inj) 40 mg QPM SC 10/09/16 21:00 11/08/16 20:59 10/09/16 21:01 40 MG Acetaminophen (Tylenol Tab) 650 mg Q4H PRN PO 10/09/16 19:00 11/08/16 18:59 10/10/16 04:13 650 MG Famotidine 20 mg/ Dextrose 102 ml @ 200 mls/hr Q12H IV 10/09/16 21:00 11/08/16 20:59 10/10/16 09:06 200 MLS/HR Nicotine (Nicoderm Cq 21MG Patch) 1 patch QAM TD 10/10/16 09:00 11/09/16 08:59 10/10/16 09:12 1 PATCH Miscellaneous (Remove Nicoderm Patch) 1 ea HS N/A 10/09/16 21:00 11/08/16 20:59 10/09/16 20:59 1 EA Potassium Chloride (Klor-Con M10) 10 meq DAILY PO 10/10/16 09:00 11/09/16 08:59 10/10/16 09:10 10 MEQ Raspberry (Raspberry Syrup 5ml Cup) 5 ml Q6 PO 10/10/16 00:00 10/19/16 00:00 10/10/16 13:02 5 ML Lorazepam (Ativan Inj) 0.5 mg Q4H PRN IV 10/09/16 22:30 11/08/16 22:29 10/10/16 04:14 0.5 MG Tramadol HCl (Ultram Tab) 50 mg Q4H PRN PO 10/09/16 22:30 11/08/16 22:29 10/10/16 09:09 50 MG Lorazepam 0.5 mg/ Syringe 1 ml @ 1 mls/min Q4H PRN IV 10/09/16 22:30 11/08/16 22:29 Thiamine HCl 200 mg/Sodium Chloride 52 ml @ 208 mls/hr BID IV 10/10/16 09:00 11/09/16 08:59 10/10/16 09:06 208 MLS/HR Folic Acid 1 mg/ Syringe 10 ml @ 5 mls/min QAM IV 10/10/16 09:00 11/09/16 08:59 10/10/16 09:08 5 MLS/MIN Multivitamins/ Minerals (Multivitamin W/ Minerals Tab) 1 tab QAM PO 10/10/16 09:00 11/09/16 08:59 10/10/16 09:08 1 TAB Lorazepam (Ativan Inj) 1 mg ONE PRN IV 10/10/16 07:45 11/09/16 07:44 Vancomycin HCl (Vancomycin Oral Soln) 125 mg Q6 PO 10/10/16 12:00 10/24/16 11:59 10/10/16 13:02 125 MG Gabapentin (Neurontin Cap) 400 mg Q6H PO 10/10/16 14:00 10/10/16 20:01 10/10/16 13:02 400 MG Gabapentin (Neurontin Cap) 400 mg Q8H PO 10/11/16 04:00 10/11/16 20:01 Gabapentin (Neurontin Cap) 400 mg Q12H PO 10/12/16 08:00 10/12/16 20:01 Gabapentin (Neurontin Cap) 400 mg Q24H PO 10/13/16 20:00 10/13/16 20:01 Potassium Chloride 20 meq/ Sodium Chloride 1,010 ml @ 80 mls/hr [id number] IV 10/10/16 09:30 11/08/16 09:29 10/10/16 10:16 80 MLS/HR Morphine Sulfate (MoRPHine SULFATE INJ) 1 mg Q3H PRN IV 10/10/16 13:15 10/24/16 13:14 Morphine Sulfate (MoRPHine SULFATE INJ) 2 mg Q3H PRN IV 10/10/16 13:15 10/24/16 13:14 Morphine Sulfate (MoRPHine SULFATE INJ) 3 mg Q3H PRN IV 10/10/16 13:15 10/24/16 13:14 Sucralfate (Carafate Susp) 1 gm ACHS PO 10/10/16 16:15 11/09/16 16:14 (Karli Alfaro, CHRISSYC) Objective Vital Signs Date Time Temp Pulse Resp B/P (MAP) Pulse Ox O2 Delivery O2 Flow Rate FiO2 10/10/16 08:00 Room Air 10/10/16 07:38 36.7 128 22 168/114 (132) 96 Room Air 10/10/16 04:05 36.9 91 19 146/101 (116) 94 Room Air 10/10/16 04:00 98 Room Air 10/10/16 00:01 98 Room Air 10/10/16 00:00 37.0 93 19 144/95 (111) 92 Room Air 10/09/16 20:21 36.9 96 18 153/105 (121) 94 Room Air 10/09/16 20:00 98 Room Air 10/09/16 19:48 36.9 100 16 148/91 98 10/09/16 19:20 36.9 100 16 148/91 98 Room Air 10/09/16 19:19 Room Air 10/09/16 17:20 102 16 148/100 97 Room Air 10/09/16 16:40 100 16 141/86 96 Room Air 10/09/16 16:19 110 16 159/101 94 Room Air 10/09/16 15:37 105 16 166/106 10/09/16 15:23 102 10/09/16 14:40 36.9 107 18 146/99 97 Room Air (Karli Alfaro, PA-C) Physical Exam General Appearance: WD/WN, + pertinent finding (ill-appearing) Eyes: sclerae normal ENT: hearing grossly normal Neck: supple, no JVD, trachea midline Respiratory/Chest: lungs clear, normal breath sounds, no respiratory distress, no accessory muscle use Cardiovascular: regular rate, rhythm, no gallop, no murmur Abdomen: normal bowel sounds, soft, + tenderness (diffuse; no acute abdomen; more significant tenderness to epigastric region and LLQ), + hepatomegaly Extremities: no pedal edema, no calf tenderness Neurologic/Psychiatric: alert, oriented x 3 Skin: normal color, warm/dry, + pertinent finding (dry skin of hands, arms, back) (Karli Alfaro, PA-C) Laboratory Results Last 24 Hours Test 10/09/16 15:00 10/09/16 15:12 10/09/16 17:40 10/10/16 06:52 White Blood Count 7.08 K/uL 3.78 K/uL Red Blood Count 3.18 M/uL 2.68 M/uL Hemoglobin 11.4 g/dL 9.8 g/dL Hematocrit 34.3 % 29.7 % Mean Corpuscular Volume 107.9 fL 110.8 fL Mean Corpuscular Hemoglobin 35.8 pg 36.6 pg Mean Corpuscular Hemoglobin Concent 33.2 g/dl 33.0 g/dl Platelet Count 320 K/uL 234 K/uL Mean Platelet Volume 9.1 fL 8.9 fL Neutrophils (%) (Auto) 65.7 % 54.3 % Lymphocytes (%) (Auto) 22.6 % 29.4 % Monocytes (%) (Auto) 9.2 % 11.6 % Eosinophils (%) (Auto) 0.4 % 2.6 % Basophils (%) (Auto) 1.1 % 1.3 % Neutrophils # (Auto) 4.65 K/uL 2.05 K/uL Lymphocytes # (Auto) 1.60 K/uL 1.11 K/uL Monocytes # (Auto) 0.65 K/uL 0.44 K/uL Eosinophils # (Auto) 0.03 K/uL 0.10 K/uL Basophils # (Auto) 0.08 K/uL 0.05 K/uL RDW Standard Deviation 62.3 fL 64.0 fL RDW Coefficient of Variation 16.0 % 16.0 % Immature Granulocyte % (Auto) 1.0 % 0.8 % Immature Granulocyte # (Auto) 0.07 K/uL 0.03 K/uL Sodium Level 141 mmol/L 144 mmol/L Potassium Level 3.1 mmol/L 3.1 mmol/L Chloride Level 103 mmol/L 108 mmol/L Carbon Dioxide Level 19 mmol/L 27 mmol/L Anion Gap 19.0 mmol/L 9.0 mmol/L Blood Urea Nitrogen 7 mg/dl 4 mg/dl Creatinine 0.67 mg/dl 0.52 mg/dl Est Creatinine Clear Calc Drug Dose 110.1 ml/min 143.6 ml/min Estimated GFR () 118.0 128.2 Estimated GFR (Non- 101.8 110.6 BUN/Creatinine Ratio 9.9 7.6 Random Glucose 76 mg/dl 95 mg/dl Calcium Level 8.1 mg/dl 6.6 mg/dl Magnesium Level 1.2 mg/dl 1.8 mg/dl Total Bilirubin 1.1 mg/dl 0.9 mg/dl Aspartate Amino Transf (AST/SGOT) 76 U/L 72 U/L Alanine Aminotransferase (ALT/SGPT) 42 U/L 38 U/L Alkaline Phosphatase 197 U/L 201 U/L Total Protein 6.9 gm/dl 5.3 gm/dl Albumin 3.5 gm/dl 2.7 gm/dl Globulin 3.4 gm/dl 2.6 gm/dl Albumin/Globulin Ratio 1.0 1.0 Lipase 258 U/L Bedside Lactic Acid Venous 5.98 mmol/L Urine Color YELLOW Urine Appearance CLEAR Urine pH 5.5 Urine Specific Coleman 1.013 Urine Protein NEG Urine Glucose (UA) NEG Urine Ketones TRACE Urine Occult Blood NEG Urine Nitrite NEG Urine Bilirubin NEG Urine Urobilinogen NEG Urine Leukocyte Esterase TRACE Urine WBC (Auto) 1-5 /hpf Urine RBC (Auto) 0-4 /hpf Urine Hyaline Casts (Auto) 1-5 /lpf Urine Epithelial Cells (Auto) >30 /lpf Urine Bacteria (Auto) NEG Anisocytosis PRESENT Macrocytosis PRESENT Stomatocytes 1+ Phosphorus Level 2.2 mg/dl (Karli Alfaro, PA-C) Assessment and Plan Ms. Harrison is a 51 y/o female with PMHx of Asthma, Tobacco Use, Hypothyroidism , Anxiety, and ETOH Use who presents with profound diarrhea and is C. diff + Clostridium difficile Colitis and Possible Gastritis: - Completed 10 day course of Flagyl but associated vomiting - interaction with ETOH? - denies ETOH consumption except for 1 glass of wine "couple weeks ago" while on Flagyl - NSS + KCL at 80 mL/hr - monitor electrolytes and replete as necessary - Protonix on hold and given Pepcid 20 mg IV BID - Carafate 1 g QID - Vancomycin 125 mg QID - Zinc Oxide PRN ETOH Use: - Denies active drinking - reporting last drink "weeks ago" which was a glass of wine - AWSS protocol with Gabapentin taper and Ativan PRN Macrocytic Anemia: Stable - Folate deficiency on previous labs - Folic acid 1 mg IV daily - when better tolerated will place po - Multivitamin Severe Hepatic Steatosis: - Trend LFTs Tobacco Use: Encourage cessation - Nicotine patch DVT Prophylaxis: Lovenox 40 mg SC daily Code Status: FULL RESUSCITATION Disposition: Expect admission 2-3 days - PCP Dr. Burgess from [facility] Continued [facility] stay due to: multiple IV medications needed Discharge planning: home (Karli Alfaro, PA-C) Attending Attestation & Admission Note: Pt seen/examined, chart reviewed, and care plan d/w ESTHELA Alfaro. I agree w/ the vincent components of her documentation. Pt w/ complaints of dyspepsia, upper abdominal pain (worsened by eating) and lower abdominal pain along with continued diarrhea. VSS BPs/HRs high gen - looks ill but nontoxic heart - tachy lungs - CTA b/l abd - tender high epigastric region, BS+, tender b/l lower quadrants, no distensions, liver edge palpable and mildly tender, no spleen Mag 1.8 K 3.1 macrocytic anemia mild leukopenia platelets nl abnormal LFTs but improved A/P: 1. c diff colitis - unsure whether to call this treatment failure with flagyl as I am unsure of compliance. Either way, given how sick she is, vancomycin x 14 days is appropriate. 2. abd pain - suspect gastritis as well as pain related to c diff. Stop NSAIDs. Narcotics prn. Pepcid + carafate. Supportive care for c. diff 3. replace lytes 4. trend LFTs 5. alcoholism - I suspect some element of withdrawal; place on gabapentin protocol. 6. thiamine, folic acid, MVI supplementation 7. macrocytic anemia - 2nd to folate def +/- liver disease +/- ongoing etoh abuse. Oziel Soares MD (Oziel Soares MD)
[2016-10-10] MEDS: KETOROLAC TROMETHAMINE 30 MG/ML VIAL IV ONE ×2 (13:01→13:34)
[2016-10-10] MEDS: GABAPENTIN 400MG Q6H DOSE PO SCH ×2 (13:02→20:27)
[2016-10-10] MEDS: VANCOMYCIN HCL 125 MG/2.5ML SOLN PO SCH ×2 (13:02→17:42)
[2016-10-10] MEDS ORDERED: MoRPHine SULFATE 2 MG/ML CARP IV PRN (13:15)
[2016-10-10] MEDS: MoRPHine SULFATE 2 MG/ML CARP IV PRN ×3 (13:33→20:27)
[2016-10-10] MEDS: SUCRALFATE 1 GM/10 ML UDC PO SCH ×2 (15:22→20:28)
[2016-10-10] MEDS: ENOXAPARIN 40 MG/0.4 ML SYR SC SCH (20:28)
[2016-10-11] VITALS (10 sets, daily range): BP systolic 109–167; BP diastolic 80–137; PULSE 74–106; TEMP 36.8–37.3; O2SAT 94–99
[2016-10-11] MEDS: LABETALOL HCL IV 5 MG/ML 20ML IV PRN ×2 (00:04→04:12)
[2016-10-11] MEDS: RASPBERRY SYRUP 5 ML UDP PO SCH ×5 (00:11→23:43)
[2016-10-11] MEDS: VANCOMYCIN HCL 125 MG/2.5ML SOLN PO SCH ×5 (00:11→23:48)
[2016-10-11] MEDS: MoRPHine SULFATE 4 MG/ML 1 ML CARP\\VIAL IV PRN ×4 (01:07→16:25)
[2016-10-11] MEDS: LORAZEPAM 2 MG/ML 1 ML VIAL IV PRN ×2 (01:08→05:38)
[2016-10-11] MEDS: GABAPENTIN 400MG Q8H DOSE PO SCH ×3 (04:08→19:43)
[2016-10-11 06:25] LABS: HEMATOCRIT 30.9 % (37-47); MEAN CELL VOLUME 113.2 fL (80-100); MEAN CORPUSCULAR HEMOGLOBIN 37.4 pg (25-34); MEAN PLATELET VOLUME 9.5 fL (7.4-10.4); PLATELET COUNT 256 K/uL (130-400); RED BLOOD COUNT 2.73 M/uL (4.2-5.4); WHITE BLOOD COUNT 4.64 K/uL (4.8-10.8)
[2016-10-11 07:05] LABS: BUN/CREATININE RATIO 4.9 (10-20); CALCIUM 7.4 mg/dl (8.5-10.1); CREATININE 0.55 mg/dl (0.60-1.20); POTASSIUM 3.5 mmol/L (3.5-5.1)
[2016-10-11 07:08] LABS: ALB/GLOB RATIO 1.1 (0.9-2)
[2016-10-11] MEDS: IPRATROPIUM BROMIDE/ALBUTEROL respimat INH INH SCH ×4 (07:34→21:02)
[2016-10-11] MEDS: CEROVITE ADV FORMULA TAB PO SCH (07:34)
[2016-10-11] MEDS: VENLAFAXINE HCL XR 75 MG CAPXR PO SCH (07:34)
[2016-10-11] MEDS: POTASSIUM CHLORIDE 10 MEQ TABCR PO SCH (07:35)
[2016-10-11] MEDS: SUCRALFATE 1 GM/10 ML UDC PO SCH ×4 (07:35→21:02)
[2016-10-11] MEDS: NICOTINE 21 MG/24 HR TDSY TD SCH (07:35)
[2016-10-11] MEDS: FoLIC ACID INJ 1 MG in SYRINGE 9.8 ML IV SCH (07:36)
[2016-10-11] MEDS: THIAMINE HCL INJ 200 MG in SODIUM CHLORIDE 0.9% 50ML 50 ML IV SCH ×2 (07:37→21:00)
[2016-10-11] MEDS: FAMOTIDINE IV INJ 20 MG in DEXTROSE 5% 100ML 100 ML IV SCH ×2 (07:37→21:10)
[2016-10-11] MEDS: POTASSIUM CHLORIDE INJ 20 MEQ in SODIUM CHLORIDE 0.9% 1000ML 1,000 ML IV SCH ×2 (11:46→23:42)
[2016-10-11] MEDS ORDERED: LORAZEPAM 2 MG/ML 1 ML VIAL IV PRN (12:15)
[2016-10-11] MEDS: ZINC SULFATE 220 MG CAP PO SCH (13:16)
[2016-10-11] MEDS: LORAZEPAM INJ 1 MG in SYRINGE 0.5 ML IV PRN ×3 (13:16→23:42)
--- NOTE | 2016-10-11 14:33 | Hospitalist Progress Note ---
Hospitalist Progress Note Date of Service Oct 11, 2016. (Karli Alfaro, PAConnieC) Subjective Pt evaluation today including: conversation w/ patient, physical exam, chart review, lab review, review of inpatient medication list Patient seen and evaluated. Reporting some improvement in abdominal pain but minimal. Only had 2 BMs yesterday. Tolerating full liquid and would like advanced diet. Keeps saying she will just "force" food to keep up her energy. Reiterated that forcing food will not benefit her and can make her more weak if she ultimately develops vomiting. Continues to denies drinking but is more anxious and tremor more evident. Reporting insomnia. Requesting pain medications. Dr. Soares discussed drinking habits with her today. Suspect she may be withdrawing more from ETOH at this time. Is reporting significant pain diffusely in the abdomen. Reports pain with just gentle pressure of the abdomen however sat up in bed for me to listen to lung sounds without grimacing or verbalization of pain. Does have a long history of constipation/diarrhea since age 15. Reports she did a trial of Questran but this resulted in constipation and denies other GI intervention. Constitutional: No fever, No chills Eyes: No worsening of vision ENT: No nasal symptoms, No sore throat Respiratory: + cough (chronic (smoker)), No wheezing, No shortness of breath Cardiovascular: No chest pain Abdomen: + pain (diffuse but mostly LUQ and LLQ), No nausea, No vomiting, No diarrhea, No constipation Musculoskeletal: No swelling, No calf pain Female : No dysuria Psychiatric: + anxiety (Karli Alfaro, CHRISSYC) Medications Current Inpatient Medications Medications (Trade) Dose Ordered Sig/Razia Route Start Time Stop Time Status Last Admin Dose Admin Albuterol/ Ipratropium (Combivent Respimat Inh) 1 puffs QID INH 10/09/16 21:00 11/08/16 20:59 10/11/16 11:27 1 PUFFS Venlafaxine HCl (effeXOR EXTENDED REL CAP) 75 mg DAILY PO 10/10/16 09:00 11/09/16 08:59 10/11/16 07:34 75 MG Enoxaparin Sodium (Lovenox Inj) 40 mg QPM SC 10/09/16 21:00 11/08/16 20:59 10/10/16 20:28 40 MG Acetaminophen (Tylenol Tab) 650 mg Q4H PRN PO 10/09/16 19:00 11/08/16 18:59 10/10/16 04:13 650 MG Famotidine 20 mg/ Dextrose 102 ml @ 200 mls/hr Q12H IV 10/09/16 21:00 11/08/16 20:59 10/11/16 07:37 200 MLS/HR Nicotine (Nicoderm Cq 21MG Patch) 1 patch QAM TD 10/10/16 09:00 11/09/16 08:59 10/11/16 07:35 1 PATCH Miscellaneous (Remove Nicoderm Patch) 1 ea HS N/A 10/09/16 21:00 11/08/16 20:59 10/10/16 20:29 1 EA Potassium Chloride (Klor-Con M10) 10 meq DAILY PO 10/10/16 09:00 11/09/16 08:59 10/11/16 07:35 10 MEQ Raspberry (Raspberry Syrup 5ml Cup) 5 ml Q6 PO 10/10/16 00:00 10/19/16 00:00 10/11/16 11:27 5 ML Tramadol HCl (Ultram Tab) 50 mg Q4H PRN PO 10/09/16 22:30 11/08/16 22:29 10/10/16 09:09 50 MG Thiamine HCl 200 mg/Sodium Chloride 52 ml @ 208 mls/hr BID IV 10/10/16 09:00 11/09/16 08:59 10/11/16 07:37 208 MLS/HR Folic Acid 1 mg/ Syringe 10 ml @ 5 mls/min QAM IV 10/10/16 09:00 11/09/16 08:59 10/11/16 07:36 5 MLS/MIN Multivitamins/ Minerals (Multivitamin W/ Minerals Tab) 1 tab QAM PO 10/10/16 09:00 11/09/16 08:59 10/11/16 07:34 1 TAB Lorazepam (Ativan Inj) 1 mg ONE PRN IV 10/10/16 07:45 11/09/16 07:44 Vancomycin HCl (Vancomycin Oral Soln) 125 mg Q6 PO 10/10/16 12:00 10/24/16 11:59 10/11/16 11:27 125 MG Gabapentin (Neurontin Cap) 400 mg Q8H PO 10/11/16 04:00 10/11/16 20:01 10/11/16 11:26 400 MG Gabapentin (Neurontin Cap) 400 mg Q12H PO 10/12/16 08:00 10/12/16 20:01 Gabapentin (Neurontin Cap) 400 mg Q24H PO 10/13/16 20:00 10/13/16 20:01 Potassium Chloride 20 meq/ Sodium Chloride 1,010 ml @ 80 mls/hr [id number] IV 10/10/16 09:30 11/08/16 09:29 10/11/16 11:46 80 MLS/HR Morphine Sulfate (MoRPHine SULFATE INJ) 1 mg Q3H PRN IV 10/10/16 13:15 10/24/16 13:14 Morphine Sulfate (MoRPHine SULFATE INJ) 2 mg Q3H PRN IV 10/10/16 13:15 10/24/16 13:14 10/10/16 20:27 2 MG Morphine Sulfate (MoRPHine SULFATE INJ) 3 mg Q3H PRN IV 10/10/16 13:15 10/24/16 13:14 10/11/16 11:46 3 MG Sucralfate (Carafate Susp) 1 gm ACHS PO 10/10/16 16:15 11/09/16 16:14 10/11/16 11:25 1 GM Labetalol HCl (Normodyne IV) 5 mg Q4H PRN IV 10/10/16 22:45 11/09/16 22:44 10/11/16 04:12 5 MG Losartan Potassium (coZAAR TAB) 50 mg DAILY PO 10/12/16 09:00 11/11/16 08:59 Lorazepam 1 mg/ Syringe 1 ml @ 1 mls/min Q4H PRN IV 10/11/16 12:15 11/08/16 22:29 10/11/16 13:16 1 MLS/MIN Zinc Sulfate (Zinc Sulfate Cap) 220 mg QAM PO 10/11/16 12:15 11/10/16 12:14 10/11/16 13:16 220 MG Lorazepam (Ativan Inj) 1 mg Q4H PRN IV 10/11/16 12:15 11/10/16 12:14 (Karli Alfaro, MAICO) Objective Vital Signs Date Time Temp Pulse Resp B/P (MAP) Pulse Ox O2 Delivery O2 Flow Rate FiO2 10/11/16 12:51 37.1 101 20 142/81 (101) 95 Room Air 10/11/16 12:00 Room Air 10/11/16 11:54 37.0 74 16 94 10/11/16 08:00 Room Air 10/11/16 07:25 37.0 74 16 109/80 (90) 94 Room Air 10/11/16 04:00 36.8 82 14 140/104 (116) 97 Nasal Cannula 10/11/16 04:00 Room Air 10/11/16 00:00 36.8 106 20 150/103 (119) 97 Room Air 10/10/16 23:59 Room Air 10/10/16 22:15 37.3 102 153/101 (118) 98 10/10/16 20:00 Room Air 10/10/16 19:40 36.6 97 21 162/112 (129) 96 Room Air 10/10/16 16:00 Room Air 10/10/16 16:00 96 Room Air 10/10/16 15:40 36.7 100 18 132/91 (105) 96 Room Air (Karli Alfaro PA-C) Physical Exam General Appearance: WD/WN, no apparent distress Eyes: sclerae normal ENT: hearing grossly normal Neck: supple, no JVD, trachea midline Respiratory/Chest: lungs clear, normal breath sounds, no respiratory distress, no accessory muscle use Cardiovascular: regular rate, rhythm, no gallop, no murmur Abdomen: normal bowel sounds, soft, + distended (mild), + tenderness (with minimal palpation; no guarding or rigidity; do not suspect acute abdomen - bends at the waste and moves in bed without grimacing or verbalizing pain) Extremities: no pedal edema, no calf tenderness Neurologic/Psychiatric: alert, oriented x 3 Skin: normal color, warm/dry (Karli Alfaro PA-C) Laboratory Results Last 24 Hours Test 10/11/16 05:40 White Blood Count 4.64 K/uL Red Blood Count 2.73 M/uL Hemoglobin 10.2 g/dL Hematocrit 30.9 % Mean Corpuscular Volume 113.2 fL Mean Corpuscular Hemoglobin 37.4 pg Mean Corpuscular Hemoglobin Concent 33.0 g/dl RDW Standard Deviation 67.2 fL RDW Coefficient of Variation 16.4 % Platelet Count 256 K/uL Mean Platelet Volume 9.5 fL Sodium Level 143 mmol/L Potassium Level 3.5 mmol/L Chloride Level 109 mmol/L Carbon Dioxide Level 26 mmol/L Anion Gap 8.0 mmol/L Blood Urea Nitrogen 3 mg/dl Creatinine 0.55 mg/dl Est Creatinine Clear Calc Drug Dose 135.8 ml/min Estimated GFR () 125.9 Estimated GFR (Non- 108.6 BUN/Creatinine Ratio 4.9 Random Glucose 106 mg/dl Calcium Level 7.4 mg/dl Total Bilirubin 0.7 mg/dl Aspartate Amino Transf (AST/SGOT) 60 U/L Alanine Aminotransferase (ALT/SGPT) 36 U/L Alkaline Phosphatase 203 U/L Total Protein 6.3 gm/dl Albumin 3.3 gm/dl Globulin 3.0 gm/dl Albumin/Globulin Ratio 1.1 Lipase 131 U/L (Karli Alfaro, PA-C) Assessment and Plan Ms. Harrison is a 51 y/o female with PMHx of Asthma, Tobacco Use, Hypothyroidism , Anxiety, and ETOH Use who presents with profound diarrhea and is C. diff + Clostridium difficile Colitis and Possible Gastritis: - Completed 10 day course of Flagyl but associated vomiting - interaction with ETOH? - denies ETOH consumption except for 1 glass of wine "couple weeks ago" while on Flagyl - NSS + KCL at 80 mL/hr - monitor electrolytes and replete as necessary - Protonix on hold and given Pepcid 20 mg IV BID - Carafate 1 g QID - Vancomycin 125 mg QID - DAY #2/ - Zinc Oxide PRN ETOH Use: - Having more anxiety and tremors and scoring higher on AWSS protocol - Denies active drinking - reporting last drink "weeks ago" which was a glass of wine - AWSS protocol with Gabapentin taper and Ativan PRN Macrocytic Anemia: Stable - Folate deficiency on previous labs - Folic acid 1 mg IV daily - when better tolerated will place po - Multivitamin Severe Hepatic Steatosis: - Trend LFTs Tobacco Use: Encourage cessation - Nicotine patch DVT Prophylaxis: Lovenox 40 mg SC daily Code Status: FULL RESUSCITATION Disposition: Expect admission 2-3 days - PCP Dr. Burgess from [facility] Continued [facility] stay due to: multiple IV medications needed Discharge planning: home (Karli Alfaro, PAConnieC) Attending Attestation & Admission Note: Pt seen/examined, chart reviewed, and care plan d/w ESTHELA Alfaro. I agree w/ the vincent components of her documentation. Two visits to see patient today. First was this am. During that visit she reported feeling better. No diarrhea in fact. Upper abd pain improved; lower abd pain still present. More anxious; requesting ativan frequently. 2nd visit was after a fall while ambulating (2nd visit was late in the day). She reported a mild right knee abrasion and striking the chin and knee but NO pain. BPs/HRs high gen - NAD, looks better face - no tenderness to palpation any location; chin w/o deformity heart - tachy lungs - CTA b/l abd - soft, liver edge palpable, mild tenderness LLQ ext - minimal abrasion to right knee; right knee placed through full ROM w/o pain; no other signs of injury A/P: 1. c diff colitis - unsure whether to call this treatment failure with flagyl as I am unsure of compliance w/ the flagyl. Either way, given how sick she is, vancomycin x 14 days is appropriate. Day #2 of such. 2. abd pain - suspect gastritis as well as pain related to c diff. Stop NSAIDs. Narcotics prn. Pepcid + carafate. Supportive care for c. diff Overall pain is improved 3. hypokalemia- resolved 4. trend LFTs 5. alcoholism - I suspect some element of withdrawal; placed on gabapentin protocol. Increase ativan to 1mg prn. 6. thiamine, folic acid, MVI supplementation 7. macrocytic anemia - 2nd to folate def +/- liver disease +/- ongoing etoh abuse. 8. fall - w/o bony injury on exam. Follow. progressing Oziel Soares MD (Oziel Soares MD)
[2016-10-11] MEDS: ENOXAPARIN 40 MG/0.4 ML SYR SC SCH (21:03)
[2016-10-11] MEDS: MoRPHine SULFATE 2 MG/ML CARP IV PRN (21:04)
[2016-10-12] VITALS (8 sets, daily range): BP systolic 153–172; BP diastolic 94–128; PULSE 71–98; TEMP 36.5–37; O2SAT 96–99
[2016-10-12] MEDS: MoRPHine SULFATE 2 MG/ML CARP IV PRN ×5 (01:22→23:35)
[2016-10-12] MEDS: LORAZEPAM INJ 1 MG in SYRINGE 0.5 ML IV PRN ×3 (06:20→23:40)
[2016-10-12] MEDS: SUCRALFATE 1 GM/10 ML UDC PO SCH ×4 (06:23→20:15)
[2016-10-12] MEDS: VANCOMYCIN HCL 125 MG/2.5ML SOLN PO SCH ×4 (06:24→23:34)
[2016-10-12] MEDS: RASPBERRY SYRUP 5 ML UDP PO SCH ×4 (06:24→23:34)
[2016-10-12] MEDS ORDERED: HydrALAZINE HCL 20 MG/ML VIAL ONE (06:39)
[2016-10-12] MEDS ORDERED: NURSING VERBAL MED ORDER ONE (06:45)
[2016-10-12] MEDS: POTASSIUM CHLORIDE 10 MEQ TABCR PO SCH (08:37)
[2016-10-12] MEDS: VENLAFAXINE HCL XR 75 MG CAPXR PO SCH (08:37)
[2016-10-12] MEDS: NICOTINE 21 MG/24 HR TDSY TD SCH (08:37)
[2016-10-12] MEDS: CEROVITE ADV FORMULA TAB PO SCH (08:37)
[2016-10-12] MEDS: ZINC SULFATE 220 MG CAP PO SCH (08:38)
[2016-10-12] MEDS: LOSARTAN POTASSIUM 50 MG TAB PO SCH (08:38)
[2016-10-12] MEDS: FAMOTIDINE IV INJ 20 MG in DEXTROSE 5% 100ML 100 ML IV SCH (08:39)
[2016-10-12] MEDS: IPRATROPIUM BROMIDE/ALBUTEROL respimat INH INH SCH ×4 (08:39→20:15)
[2016-10-12] MEDS: FoLIC ACID INJ 1 MG in SYRINGE 9.8 ML IV SCH (08:39)
[2016-10-12] MEDS: THIAMINE HCL INJ 200 MG in SODIUM CHLORIDE 0.9% 50ML 50 ML IV SCH ×2 (08:39→20:16)
[2016-10-12] MEDS: GABAPENTIN 400MG Q12H DOSE PO SCH ×2 (08:40→20:15)
[2016-10-12 09:06] LABS: BUN/CREATININE RATIO 2.9 (10-20); CREATININE 0.52 mg/dl (0.60-1.20); MAGNESIUM 1.3 mg/dl (1.8-2.4); POTASSIUM 3.6 mmol/L (3.5-5.1)
[2016-10-12 09:08] LABS: ALB/GLOB RATIO 1.1 (0.9-2)
[2016-10-12 09:17] LABS: CALCIUM 7.8 mg/dl (8.5-10.1)
[2016-10-12 09:29] LABS: HEMATOCRIT 28.7 % (37-47); MEAN CORPUSCULAR HEMOGLOBIN 38.6 pg (25-34); MEAN CORPUSCULAR HGB CONC 34.1 g/dl (32-36); MEAN PLATELET VOLUME 9.4 fL (7.4-10.4); PLATELET COUNT 239 K/uL (130-400); RED BLOOD COUNT 2.54 M/uL (4.2-5.4); WHITE BLOOD COUNT 3.94 K/uL (4.8-10.8)
[2016-10-12] MEDS: MAGNESIUM SULFATE 1GM / D5W 1 GM in PREMIXED IN D5W 100 ML IV SCH ×3 (10:45→12:41)
[2016-10-12] MEDS: METOPROLOL TARTRATE 25 MG TAB PO SCH ×2 (12:42→20:15)
[2016-10-12] MEDS: D5W AND 1/2NSS + 20MEQ KCL 1,000 ML IV SCH ×2 (12:43→23:36)
[2016-10-12] MEDS: ENOXAPARIN 40 MG/0.4 ML SYR SC SCH (20:15)
--- NOTE | 2016-10-13 00:49 | Progress Note ---
Subjective Date of Service: Oct 12, 2016. Subjective Pt evaluation today including: conversation w/ patient, physical exam, chart review, lab review Pain: minimal abdominal pain today PO Intake: tolerating full liquids; requests regular food Voiding: no voiding problems overall feels much better today only 1 diarrhea stool this am abd pain improving no nausea/emesis feels anxious and is worried about BP admits she "could be going through withdrawal" Problem List Medical Problems: (1) Abdominal pain Status: Acute (2) Acute pancreatitis Status: Acute (3) Alcohol intoxication Status: Acute (4) C. difficile colitis Status: Acute (5) C. difficile diarrhea Status: Acute (6) Dehydration Status: Acute (7) Hypomagnesemia Status: Acute (8) Lactic acidosis Status: Acute (9) Pancreatitis Status: Acute Review of Systems Constitutional: No fever Respiratory: No cough Cardiac: No chest pain Abdomen: + see HPI, No GI bleeding Objective Vital Signs Date Time Temp Pulse Resp B/P (MAP) Pulse Ox O2 Delivery O2 Flow Rate FiO2 10/12/16 23:59 37.0 71 16 153/99 (117) 97 Room Air 10/12/16 16:00 Room Air 10/12/16 15:13 37.0 74 16 153/94 (113) 99 Room Air 10/12/16 08:00 98 Room Air 10/12/16 07:17 36.8 98 18 159/103 (121) 98 Room Air 10/12/16 06:25 36.5 82 16 172/127 (142) 99 Room Air 10/12/16 04:00 159/112 (128) 10/12/16 03:36 36.6 86 16 170/128 (142) 99 Room Air 10/12/16 01:25 37.0 88 18 156/108 (124) 96 Room Air Physical Exam General Appearance: no apparent distress ENT: pharynx normal Neck: no JVD Respiratory/Chest: lungs clear, no respiratory distress, no accessory muscle use Cardiovascular: regular rate, rhythm, no gallop, no murmur Abdomen: normal bowel sounds, non tender, soft, no organomegaly Extremities: no pedal edema Neurologic/Psychiatric: alert, oriented x 3 Skin: no rash Laboratory Results Last 24 Hours Test 10/12/16 07:41 White Blood Count 3.94 K/uL Red Blood Count 2.54 M/uL Hemoglobin 9.8 g/dL Hematocrit 28.7 % Mean Corpuscular Volume 113.0 fL Mean Corpuscular Hemoglobin 38.6 pg Mean Corpuscular Hemoglobin Concent 34.1 g/dl RDW Standard Deviation 64.0 fL RDW Coefficient of Variation 15.8 % Platelet Count 239 K/uL Mean Platelet Volume 9.4 fL Sodium Level 147 mmol/L Potassium Level 3.6 mmol/L Chloride Level 112 mmol/L Carbon Dioxide Level 26 mmol/L Anion Gap 9.0 mmol/L Blood Urea Nitrogen 2 mg/dl Creatinine 0.52 mg/dl Est Creatinine Clear Calc Drug Dose 143.6 ml/min Estimated GFR () 128.2 Estimated GFR (Non- 110.6 BUN/Creatinine Ratio 2.9 Random Glucose 91 mg/dl Calcium Level 7.8 mg/dl Magnesium Level 1.3 mg/dl Total Bilirubin 0.6 mg/dl Aspartate Amino Transf (AST/SGOT) 29 U/L Alanine Aminotransferase (ALT/SGPT) 29 U/L Alkaline Phosphatase 157 U/L Total Protein 5.6 gm/dl Albumin 2.9 gm/dl Globulin 2.7 gm/dl Albumin/Globulin Ratio 1.1 Assessment and Plan 51yo female: 1. c diff colitis - improved. Treatment failure with flagyl as outpatient. Day #3 of 14 of PO vanco. 2. abd pain - suspect gastritis as well as pain related to c diff. Stop NSAIDs. Narcotics prn. Pepcid + carafate. Supportive care for c. diff Overall pain is improved/nearly resolved. 3. hypokalemia- resolved 4. hypomagnesemia - replace with 3 grams mag sulfate; repeat mag level AM. 5. alcoholism with likely withdrawal; placed on gabapentin protocol. Cont ativan. 6. thiamine, folic acid, MVI supplementation due to alcoholism 7. macrocytic anemia - 2nd to folate def +/- liver disease +/- ongoing etoh abuse - cbc has been stable. 8. fall - w/o bony injury on exam 9. HTN - unsure if this represents her essential HTN or is related to her etoh withdrawal either way will give metoprolol 25mg BID hopefully home tomorrow Continued [facility] stay due to: multiple IV medications needed Discharge planning: home
[2016-10-13] MEDS: MoRPHine SULFATE 2 MG/ML CARP IV PRN ×2 (04:21→10:37)
[2016-10-13] MEDS: TRAMADOL HCL 50 MG TAB PO PRN (04:22)
[2016-10-13] MEDS: RASPBERRY SYRUP 5 ML UDP PO SCH ×2 (05:53→13:01)
[2016-10-13] MEDS: SUCRALFATE 1 GM/10 ML UDC PO SCH ×2 (05:53→11:43)
[2016-10-13] MEDS: VANCOMYCIN HCL 125 MG/2.5ML SOLN PO SCH ×2 (05:53→13:00)
[2016-10-13] MEDS: LORAZEPAM INJ 1 MG in SYRINGE 0.5 ML IV PRN ×2 (05:53→13:15)
[2016-10-13 06:46] LABS: BUN/CREATININE RATIO 2.5 (10-20); CALCIUM 8.2 mg/dl (8.5-10.1); CREATININE 0.61 mg/dl (0.60-1.20); MAGNESIUM 1.8 mg/dl (1.8-2.4); POTASSIUM 3.9 mmol/L (3.5-5.1)
[2016-10-13 07:41] VITALS: BP 155/105; PULSE 80; TEMP 36.8; O2SAT 98
[2016-10-13] MEDS: FoLIC ACID INJ 1 MG in SYRINGE 9.8 ML IV SCH (07:49)
[2016-10-13] MEDS: CEROVITE ADV FORMULA TAB PO SCH (07:49)
[2016-10-13] MEDS: VENLAFAXINE HCL XR 75 MG CAPXR PO SCH (07:49)
[2016-10-13] MEDS: ZINC SULFATE 220 MG CAP PO SCH (07:50)
[2016-10-13] MEDS: IPRATROPIUM BROMIDE/ALBUTEROL respimat INH INH SCH ×2 (07:50→13:07)
[2016-10-13] MEDS: POTASSIUM CHLORIDE 10 MEQ TABCR PO SCH (07:50)
[2016-10-13] MEDS: METOPROLOL TARTRATE 25 MG TAB PO SCH (07:50)
[2016-10-13] MEDS: NICOTINE 21 MG/24 HR TDSY TD SCH (07:51)
[2016-10-13] MEDS: LOSARTAN POTASSIUM 50 MG TAB PO SCH (07:52)
[2016-10-13] MEDS: THIAMINE HCL INJ 200 MG in SODIUM CHLORIDE 0.9% 50ML 50 ML IV SCH (08:16)
[2016-10-13] MEDS ORDERED: FLV1 PO (11:47)
[2016-10-13] MEDS ORDERED: RANI150T3 PO (11:47)
[2016-10-13] MEDS ORDERED: ZNCS220 PO (11:47)
[2016-10-13] MEDS ORDERED: CHLO25CA10 PO (11:47)
[2016-10-13] MEDS ORDERED: LPR25 PO (11:47)
[2016-10-13] MEDS ORDERED: MULT-589 PO (11:47)
[2016-10-13] MEDS ORDERED: THM100 PO (11:47)
[2016-10-13] MEDS ORDERED: VANC1CAP19 PO (11:47)
[2016-10-13] MEDS ORDERED: ULT50X PO (11:47)
--- NOTE | 2016-10-13 11:57 | Discharge Instructions ---
Discharge Instructions Date of Service Oct 13, 2016. Admission Reason for Admission: C. Difficile Colitis Discharge Discharge Diagnosis / Problem: c diff colitis, low magnesium, low potassium - all resolved or resolving. Discharge Goals Goal(s): Decrease discomfort, Improve disease control, Learn about illness, Diagnostic testing, Therapeutic intervention Activity Recommendations Activity Limitations: resume your previous activity (as tolerated) . Instructions / Follow-Up Instructions / Follow-Up From Dr. Soares - 1. c. diff diarrhea infection - * take vancomycin capsules FOUR times a day for 10 days * follow a LOW FIBER diet as high fiber foods will make the diarrhea worse; high fiber foods include certain cereals, beans, generous amounts of fruits/ veggies, etc * the diarrhea will gradually resolve over the next few days and the stools will start to form * plenty of liquids next few days 2. prevention of c. diff to other people - * avoid contact with others, especially at your home, until your stools are more formed/normal * if people do visit your home have them use a separate bathroom * to clean your bathroom, kitchen, etc use chlorox liquid or wipes as this kills the c. diff * liquid alcohol hand santizier ("purell") does NOT kill c. diff * GOOD handwashing with soap/water for minimum of 20 seconds DOES kill c. diff * visitors should wash their hands thoroughly * wash your linens, towels, and clothes in hot water * if you do go in public be sure to wash your hands frequently and try to avoid public bathrooms until the stools are normal 3. alcohol - * please abstain 100% from alcohol if possible * reach out to your friends, family, box spring frame builder, a counselor, "AA", etc for help 4. alcohol withdrawal - * take 4 days of librium (chlordiazepoxide) to help with anxiety, jitters, etc * do NOT drink alcohol on this medication * start this medication TODAY 5. pain - * take zantac (ranitidine) 150mg twice daily; this is for stomach upset and reflux * take tramadol 50mg every 6 hours as needed for pain 6. vitamins - * zinc x 11 days * thiamine x 14 days * folic acid x 30 days * multivitamin daily indefinitely if possible 7. high blood pressure - * continue your losartan * START metoprolol 25mg twice daily; first dose TONIGHT 8. follow-up - * Dr. Burgess next week as scheduled 9. Return to [facility] if - * blood/mucous in the stool * worsening abdominal pain * fever over 100.4 degrees * inability to eat/drink Current Hospital Diet Patient's current hospital diet: Low Fiber Diet Discharge Diet Recommended Diet: Low Fiber Diet Procedures Procedures Performed: CAT scan of the abdomen showing colitis from the c. diff AND severe fatty liver. Pending Studies Studies pending at discharge: no Medical Emergencies . Who to Call and When: Medical Emergencies: If at any time you feel your situation is an emergency, please call 911 immediately. . Non-Emergent Contact Non-Emergency issues call your: Primary Care Provider Call Non-Emergent contact if: temperature is above 100.5, your pain is not controlled, your pain is worsening, your pain is unusual for you, your pain is concerning you, you have any medication questions . . "Provider Documentation" section prepared by Oziel Soares. . VTE Core Measure Inpt VTE Proph given/why not?: Enoxaparin (Lovenox)SQ
[2016-10-13 13:04] VITALS: BP 155/105; PULSE 80; TEMP 36.8; O2SAT 98
[2016-10-13] MEDS ORDERED: GABAPENTIN 400MG X1 DOSE PO SCH (20:00)
--- NOTE | 2016-10-17 23:07 | Discharge Summary ---
Discharge Summary Date of Service Oct 17, 2016. Discharge Summary Admission Date: Oct 09, 2016 at 19:07 Discharge Date: Oct 13, 2016 Discharge Disposition: Home Principal Diagnosis: c diff colitis Problems/Secondary Diagnoses: 1. alcoholism 2. macrocytic anemia, either 2nd to folate deficiency or alcoholism 3. hypokalemia - resolved 4. hypomagnesemia - resolved 5. hypophosphatemia 6. abnormal LFTs - likely 2nd to #1 7. severe fatty liver on imaging 8. probable alcohol withdrawal 9. folate deficiency 10. HTN 11. recent fall 12. anxiety 13. hypothyroidism 14. asthma 15. tobacco dependence 16. possible gastritis Immunizations: Have You Had Influenza Vaccine: No History of Tetanus Vaccine?: Yes History of Pneumococcal: No History of Hepatitis B Vaccine: No Hepatitis Immunization Date: Feb 06, 1990 Procedures: CT abd/pelvis - IMPRESSION: 1. Severe hepatic steatosis 2. Stable 1.5 cm lesion within the right hepatic lobe 3. Stable submucosal fat hypertrophy in the colon 4. No evidence of bowel obstruction. No evidence of free air 5. Borderline bowel wall thickening involving the descending colon and rectosigmoid. A colitis cannot be excluded Medication Reconciliation New Medications: Chlordiazepoxide (Librium) 25 Mg Cap 25 MG PO DIRECTED, #6 CAP starting 10/13/16 - take 1 tablet twice daily x 2 days, then 1 tablet once a day for 2 days, then stop. Folic Acid (Folic Acid) 1 Mg Tab 1 MG PO DAILY for 30 Days, #30 TBS 0 Refills Multivitamins (Daily Arin) 1 Tab Tab 1 TAB PO DAILY, #90 TABS 3 Refills Ranitidine Hcl (Zantac) 150 Mg Tab 150 MG PO BID for 30 Days, #60 TAB 0 Refills Thiamine HCl (Vitamin B-1) 100 Mg Tab 200 MG PO BID for 14 Days, #56 TBS 0 Refills Metoprolol Tartrate (Lopressor) 25 Mg Tab 25 MG PO BID, #60 TAB 2 Refills for high blood pressure Tramadol HCl (Tramadol HCl) 50 Mg Tab 50 MG PO Q6H PRN for Pain, #10 TAB 0 Refills Vancomycin Hcl (Vancocin Hcl) 125 Mg Cap 125 MG PO QID for 10 Days, #40 CAP 0 Refills Zinc Sulfate (Zinc Sulfate) 220 Mg Cap 220 MG PO QAM for 11 Days, #11 CAP 0 Refills Continued Medications: Ipratropium-Albuterol (Combivent Respimat) 1 Aer Aer 1 PUFF PO QID Losartan Potassium (Losartan Potassium) 50 Mg Tab 50 MG PO DAILY Venlafaxine Hcl (Effexor Extended Rel) 75 Mg Capcr 75 MG PO DAILY, #30 Discontinued Medications: Metronidazole (Flagyl) 500 Mg Tab 500 MG PO TID, #30 TAB Pantoprazole (Pantoprazole Sodium) 40 Mg Tab 40 MG PO QAM for 30 Days, #30 TAB Discharge Exam Physical Exam: General Appearance: no apparent distress ENT: pharynx normal Neck: no JVD Respiratory/Chest: lungs clear, no respiratory distress, no accessory muscle use Cardiovascular: regular rate, rhythm, no gallop, no murmur, normal peripheral pulses Abdomen / GI: normal bowel sounds, non tender, soft, + hepatomegaly Extremities: no pedal edema Neurologic/Psychiatric: alert, oriented x 3 Skin: + pertinent finding (dry skin throughout ) Hospital Course HISTORY OF PRESENT ILLNESS: The patient is a 51-year-old female who has been recently diagnosed with Clostridium difficile and was on Flagyl p.o. The patient was vomiting the last few days and was not taking her Flagyl. The patient stated that the diarrhea got much worse, yesterday she had 24 episodes of diarrhea and today she had about 16 episodes of diarrhea so far. Also, she had multiple episodes of vomiting 4-5 every day. The patient felt severely weak and presented to the ED for further evaluation and management. Admits to abdominal pain, tenderness and stated that when she wiped herself really hard she had a little bit of blood in the tissue, but other than that denies any headache, double vision, blurry vision. Denies any chest pain, palpitations. Denies any cough, wheezing, shortness of breath. Denies any focal weakness, tingling, numbness. Denies any rash or joint swelling or pain. HOSPITAL COURSE: The patient was treated for c. diff colitis with oral vancomycin and made steady improvement in all GI symptoms while hospitalized. It was unclear if she had a treatment failure with flagyl because of concomitant alcohol use or because of c. diff resistance. Either way she will complete, in total, 14 days of vancomycin treatment. Her low potassium, magnesium, and phosphorus were placed while hospitalized. It was suspected that the patient had mild alcohol withdrawal. She was placed on gabapentin for such along with beta emma. She will complete a short course of librium after discharge. She never had evidence of DTs while here. The patient was provided folic acid/thiamine/multivitamin supplementation. These will be continued after discharge. Lastly, the patient had elevated blood pressures most of her stay. It is possible that the BP elevations were due to pain, anxiety, and/or alcohol withdrawal. [id number] she was started on metoprolol twice daily and was asked to continue this after discharge. At discharge the patient was counseled to abstain from all alcohol. Information for alcoholics anonymous was also given. Total Time Spent: Greater than 30 minutes This includes examination of the patient, discharge planning, medication reconciliation, and communication with other providers. Discharge Instructions Please refer to the electronic Patient Visit Report (Discharge Instructions) for additional information. Follow-Up Dr. Jeb Burgess, PCP, within 1 week Additional Copies To Jeb Burgess MD
== END 2016-10-13 13:30 | disposition home or self-care (01) | DRG 372 ==
LOC: C.EDB 14:36 → C.2E 19:07 → ENRESERV 19:20 → C.MS2W 10-11 12:41
PROVIDERS: ADMIT Internal Medicine; ATTEND Internal Medicine
DX: A04.7 Enterocolitis due to Clostridium difficile (principal); F10.239 Alcohol dependence with withdrawal, unspecified; E87.2 Acidosis; D53.9 Nutritional anemia, unspecified; E53.8 Deficiency of other specified B group vitamins; E87.6 Hypokalemia; E83.39 Other disorders of phosphorus metabolism; R94.5 Abnormal results of liver function studies; I10 Essential (primary) hypertension; F32.9 Major depressive disorder, single episode, unspecified; E03.9 Hypothyroidism, unspecified; F17.210 Nicotine dependence, cigarettes, uncomplicated; J45.909 Unspecified asthma, uncomplicated; K29.70 Gastritis, unspecified, without bleeding; E86.0 Dehydration; Z87.19 Personal history of other diseases of the digestive system; Z91.81 History of falling; Z79.899 Other long term (current) drug therapy; Z79.2 Long term (current) use of antibiotics

== ENCOUNTER 2017-04-11 06:37 | Inpatient (IN) | payer OTHER ==
[~2017-04-11] VITALS: Ht 172.7 cm; Wt 70.8 kg
[~2017-04-11 06:37] MED LIST changes: +CHLO25CA10 PO; +FLV1 PO; +LPR25 PO; -METR-163 PO; +MULT-589 PO; -PRT40 PO; +RANI150T3 PO; +THM100 PO; +ULT50X PO; +VANC1CAP19 PO; +ZNCS220 PO
[2017-04-11] MEDS ORDERED: ONDANSETRON INJ 2 MG/ML 2 ML VIAL IV STA (07:01)
[2017-04-11] MEDS ORDERED: MoRPHine SULFATE 4 MG/ML 1 ML CARP\\VIAL IV STA (07:01)
[2017-04-11] MEDS ORDERED: PANT1TAB3 PO (07:05)
--- NOTE | 2017-04-11 07:17 | EMERGENCY ROOM VISIT NOTE ---
History Report prepared by Octavia: Bekah Jesus Under the Supervision of: Dr. Sean Mabry M.D. First contact with patient: 06:56 Chief Complaint: GI ASSESSMENT Stated Complaint: NOT FEELING,NOT EATEN IN WK,CAN'T KEEP FOOD DOWN History of Present Illness The patient is a 52 year old white female with a past medical history of alcoholism, cholecystectomy, hysterectomy, hypertension, asthma, pancreatitis, hypothyroidism who presents to the ED with a cc of diffuse abdominal pain beginning 1 week ago. Positive nausea, vomiting, diarrhea, feeling dehydrated, shaky, shortness of breath. Negative hematochezia, urinary symptoms. She currently rates her discomfort as an 8/10 in severity. The patient states that she has previously had pancreatitis, noting that her symptoms today feel similar. She states that she last had pancreatitis this past summer. The patient states that she last drank alcohol last week, noting that she cut back from drinking daily. She additionally notes that she has cut back to 2-3 cigarettes over the past several weeks. The patient denies any recent fall or trauma. She states that she has vomited around 5 times per day since her symptoms began. Source of History: patient Onset: 1 week ago Position: abdomen Symptom Intensity: 8/10 Timing: other (persistent) Associated Symptoms: + SOB, + nausea, + vomiting, + diarrhea, No hematochezia, No urinary symptoms Note: Associated Symptoms: feeling shaky and dehydrated Review of Systems See HPI for pertinent positives and negatives. A total of ten systems were reviewed and were otherwise negative. Past Medical & Surgical Medical Problems: (1) Alcohol Abuse-Unspec (2) Anxiety (3) Anxiety State Nos (4) Asthma, Unspecified (5) Calculus Of Ureter (6) Diverticulosis Colon (W/O Ment Of Hemorrhage) (7) Gastroenteritis (8) Hypokalemia (9) Hypothyroidism Nos (10) Lumbago (11) Migraine Unspecified W/O Intract Mgrn W/O Status Migrainosus (12) Pancreatitis, acute Surgical Problems: (1) History of cholecystectomy (2) Hx of appendectomy Family History No significant family history Social History Smoking Status: Current Every Day Smoker Alcohol Use: other Drug Use: none Marital Status: single Occupation Status: employed Current/Historical Medications Scheduled Ipratropium-Albuterol (Combivent Respimat), 1 PUFF PO QID Losartan Potassium (Losartan Potassium), 50 MG PO DAILY Pantoprazole (Protonix), 40 MG PO DAILY Allergies Coded Allergies: Penicillins (Verified Allergy, Intermediate, RASH/HIVES, 04/11/17) Sulfa Antibiotics (Verified Allergy, Intermediate, HIVES, 04/11/17) Codeine (Verified Allergy, Unknown, 04/11/17) Indomethacin (Verified Allergy, Unknown, 04/11/17) Iodine (Verified Allergy, Unknown, 04/11/17) [place] (Verified Allergy, Unknown, 04/11/17) Physical Exam Vital Signs Date Time Temp Pulse Resp B/P (MAP) Pulse Ox O2 Delivery O2 Flow Rate FiO2 04/11/17 09:00 92 16 152/77 100 Room Air 04/11/17 08:00 90 20 159/110 100 Room Air 04/11/17 07:46 90 04/11/17 06:43 37.0 117 18 130/90 100 Room Air Physical Exam GENERAL: Awake, alert, well-appearing, NAD, tremulous. HENT: Normocephalic, atraumatic. Dry oral mucosa, negative obturators, negative psoas. EYES: Normal conjunctiva. Sclera non-icteric. NECK: Supple. No nuchal rigidity. FROM. RESPIRATORY: CTAB, no rhonchi, wheezing, crackles CARDIAC: RRR, no MRG ABDOMEN: Soft, Liver palpable below the costal margin, right upper quadrant pain , epigastric pain, left upper quadrant pain, BS+ MSK: No chest wall TTP, no LE edema NEURO: GCS 15, CN 2-12 intact, moves all 4s on command SKIN: No rash or jaundice noted. Medical Decision & Procedures ER Provider Diagnostic Interpretation: Radiology results as stated below per my review and radiologist interpretation: CHEST AND ABDOMEN 2 VIEWS HISTORY: Generalized abdominal pain. Vomiting. COMPARISON: Chest and abdominal series 09/24/2016. FINDINGS: Multiple punctate calcified granulomas are seen throughout the lungs. The heart is normal in size. No new focal lung consolidations. Old, healed left-sided rib fractures. No pneumoperitoneum. No pneumatosis. Cholecystectomy. No renal calculi. The bowel gas pattern is unremarkable. No evidence for bowel obstruction. Multiple pelvic phleboliths are again noted. IMPRESSION: No acute cardiopulmonary process. No evidence for bowel obstruction. Electronically signed by: Hernandez Streeter M.D. 04/11/2017 7:50 AM Dictated Date/Time: 04/11/2017 7:[address] ABD/PELVIS IV CONTRAST ONLY CLINICAL HISTORY: Upper abdominal pain. Nausea, vomiting, diarrhea. History of pancreatitis. C. difficile. COMPARISON STUDY: 10/09/2016 TECHNIQUE: Following the IV administration of 93 mL of Optiray-320, CT scan of the abdomen and pelvis was performed from the lung bases to the proximal femurs. Images are reviewed in the axial, sagittal, and coronal planes. IV contrast was administered without complication. A dose lowering technique was utilized adhering to the principles of ALARA. CT DOSE: 427.48 mGy.cm FINDINGS: Lower chest: There are few scattered granulomatous calcifications present. Liver: There is severe hepatic steatosis. There is a stable 15 mm hyperdense focus within the right hepatic lobe. There is an equivocal second 8 mm hyperdense focus within the right hepatic lobe.. Gallbladder: Surgically absent Spleen: Normal in size and attenuation. Pancreas: Unremarkable. Adrenal glands: Unremarkable. Kidneys: There is symmetric renal cortical enhancement. The kidneys are normal in size without hydronephrosis. Bowel: There are no transition zones to indicate bowel obstruction. There are no findings to indicate acute appendicitis. There are scattered colonic diverticula. There is submucosal fat hypertrophy within the colon. There is north colonic wall thickening most pronounced within the sigmoid. The findings are consistent with a pancolitis. Peritoneum: There is no intraperitoneal free air or abdominal ascites. Vasculature: The abdominal aorta is normal in course and caliber. Adenopathy: None. Pelvic viscera: The uterus appears surgically absent Skeletal structures: There is left-sided sacroiliitis. IMPRESSION: 1. Severe hepatic steatosis 2. Stable 15 mm lesion within the right hepatic lobe. There is an equivocal second 9 mm right hepatic lobe lesion 3. Stable submucosal fat hypertrophy within the colon 4. No evidence of bowel obstruction. No evidence of free air 5. Suspected colonic wall thickening most pronounced within the left colon. A colitis is suspected. Electronically signed by: Ramon Dominique M.D. 04/11/2017 8:36 AM Dictated Date/Time: 04/11/2017 8:28 AM Laboratory Results 04/11/17 06:55 Red Blood Count 2.73, Mean Corpuscular Volume 110.6, Mean Corpuscular Hemoglobin 37.7, Mean Corpuscular Hemoglobin Concent 34.1, Mean Platelet Volume 10.3, Neutrophils (%) (Auto) 68.6, Lymphocytes (%) (Auto) 22.9, Monocytes (%) ( Auto) 6.9, Eosinophils (%) (Auto) 0.4, Basophils (%) (Auto) 0.8, Neutrophils # ( Auto) 3.57, Lymphocytes # (Auto) 1.19, Monocytes # (Auto) 0.36, Eosinophils # ( Auto) 0.02, Basophils # (Auto) 0.04 04/11/17 06:55 Test 04/11/17 06:55 04/11/17 08:40 White Blood Count 5.20 K/uL (4.8-10.8) Red Blood Count 2.73 M/uL (4.2-5.4) Hemoglobin 10.3 g/dL (12.0-16.0) Hematocrit 30.2 % (37-47) Mean Corpuscular Volume 110.6 fL (80-100) Mean Corpuscular Hemoglobin 37.7 pg (25-34) Mean Corpuscular Hemoglobin Concent 34.1 g/dl (32-36) Platelet Count 189 K/uL (130-400) Mean Platelet Volume 10.3 fL (7.4-10.4) Neutrophils (%) (Auto) 68.6 % Lymphocytes (%) (Auto) 22.9 % Monocytes (%) (Auto) 6.9 % Eosinophils (%) (Auto) 0.4 % Basophils (%) (Auto) 0.8 % Neutrophils # (Auto) 3.57 K/uL (1.4-6.5) Lymphocytes # (Auto) 1.19 K/uL (1.2-3.4) Monocytes # (Auto) 0.36 K/uL (0.11-0.59) Eosinophils # (Auto) 0.02 K/uL (0-0.5) Basophils # (Auto) 0.04 K/uL (0-0.2) RDW Standard Deviation 68.8 fL (36.4-46.3) RDW Coefficient of Variation 17.6 % (11.5-14.5) Immature Granulocyte % (Auto) 0.4 % Immature Granulocyte # (Auto) 0.02 K/uL (0.00-0.02) Polychromasia 1+ Tear Drop Cells 1+ Gruber-Gobles Bodies 1+ Prothrombin Time 11.4 SECONDS (9.0-12.0) Prothromb Time International Ratio 1.1 (0.9-1.1) Activated Partial Thromboplast Time 23.8 SECONDS (21.0-31.0) Partial Thromboplastin Ratio 0.9 Anion Gap 16.0 mmol/L (3-11) Est Creatinine Clear Calc Drug Dose 97.6 ml/min Estimated GFR () 116.6 Estimated GFR (Non- 100.6 BUN/Creatinine Ratio 13.9 (10-20) Calcium Level 7.0 mg/dl (8.5-10.1) Magnesium Level 0.7 mg/dl (1.8-2.4) Total Bilirubin 1.9 mg/dl (0.2-1) Direct Bilirubin 0.8 mg/dl (0-0.2) Aspartate Amino Transf (AST/SGOT) 113 U/L (15-37) Alanine Aminotransferase (ALT/SGPT) 29 U/L (12-78) Alkaline Phosphatase 235 U/L (45-117) Total Protein 6.4 gm/dl (6.4-8.2) Albumin 3.2 gm/dl (3.4-5.0) Lipase 214 U/L (73-393) Urine Color YELLOW Urine Appearance CLEAR (CLEAR) Urine pH 7.5 (4.5-7.5) Urine Specific [place] 1.020 (1.000-1.030) Urine Protein NEG (NEG) Urine Glucose (UA) NEG (NEG) Urine Ketones TRACE (NEG) Urine Occult Blood NEG (NEG) Urine Nitrite NEG (NEG) Urine Bilirubin NEG (NEG) Urine Urobilinogen NEG (NEG) Urine Leukocyte Esterase NEG (NEG) Laboratory results reviewed by me Medications Administered Medications (Trade) Dose Ordered Sig/Razia Route Start Time Stop Time Status Last Admin Dose Admin Ondansetron HCl (Zofran Inj) 4 mg NOW STAT IV 04/11/17 07:01 04/11/17 07:03 DC 04/11/17 07:23 4 MG Morphine Sulfate (MoRPHine SULFATE INJ) 4 mg NOW STAT IV 04/11/17 07:01 04/11/17 07:03 DC 04/11/17 07:24 4 MG Thiamine HCl (Vitamin B-1 Inj) 100 mg NOW STAT IV 04/11/17 07:24 04/11/17 07:25 DC 04/11/17 07:53 100 MG Folic Acid 1 mg/ Syringe 10 ml @ 5 mls/min ONE STAT IV 04/11/17 07:24 04/11/17 07:25 DC 04/11/17 07:53 5 MLS/MIN Diphenhydramine HCl (Benadryl Inj) 25 mg NOW STAT IV 04/11/17 07:44 04/11/17 07:45 DC 04/11/17 07:53 25 MG Magnesium Oxide (Mag-Ox Tab) 800 mg ONE STAT PO 04/11/17 07:58 04/11/17 08:00 DC 04/11/17 08:29 800 MG Calcium Gluconate (Calcium Gluconate 10%) 1,000 mg NOW STAT IV 04/11/17 07:59 04/11/17 08:01 DC 04/11/17 08:26 1,000 MG Magnesium Sulfate (Magnesium Sulfate) 1 gm NOW STAT IV 04/11/17 08:06 04/11/17 08:10 DC 04/11/17 08:26 1 GM Potassium Chloride (Klor-Con M10) 40 meq STK-MED ONCE .ROUTE 04/11/17 08:28 04/11/17 08:29 DC 04/11/17 08:30 40 MEQ Metoclopramide HCl (Reglan Inj) 10 mg NOW STAT IV 04/11/17 08:49 04/11/17 08:50 DC 04/11/17 08:57 10 MG Acetaminophen (Tylenol Tab) 650 mg STK-MED ONCE .ROUTE 04/11/17 09:55 04/11/17 09:56 DC 04/11/17 09:58 650 MG ECG Indication: abdominal pain Rate (beats per minute): 89 Rhythm: normal sinus Findings: other (prolonged QTC, normal axis, no other STS changes or TWI) ED Course 0709: The patient was evaluated in room A4B. A complete history and physical exam was performed. 0847: I reevaluated the patient and she is resting comfortably. I discussed the test results with her and I discussed the treatment plan. She verbalized complete understanding and agreement. She is going to be evaluated for further treatment. 0855: I discussed the patients case with FABRICIO Feliciano. He is going to evaluate the patient for further treatment. Medical Decision Differential diagnosis: Etiologies such as appendicitis, diverticulitis, PUD, biliary pathology, UTI, pancreatitis, obstruction, mesenteric ischemia, aortic pathology, infections, inflammatory bowel disease, renal colic, as well as others were entertained. The patient is a 52 year old white female with a past medical history of alcoholism, cholecystectomy, hysterectomy, hypertension, asthma, pancreatitis, hypothyroidism who presents to the ED with a cc of diffuse abdominal pain beginning 1 week ago. Patient was seen and evaluated the bedside. Patient does describe about a week of abdominal discomfort. Patient states she has nausea with vomiting and diarrhea. Patient denies any recent antibiotic use, sick contacts, trauma, or recent travel. Patient states that she's not had any blood in the stool or vomit. Patient does have a history of chronic alcoholism and does smoke daily. Patient was counseled on abstinence from alcohol and smoking cessation. Patient did have blood work that was completed along with symptom control, plain films, and CT of the abdomen pelvis. Patient was noted have moderate mild hypokalemia, hypomag, chronic anemia w/ stable hgb (elevated MCV), white blood cell count of 5000, hypocalcemia with normal lipase. Patient's plain films unremarkable. Repleted lytes and given folic acid, thiamine and IVF. Given the patient's chronic abdominal pain, which led abnormalities and inability to tolerate much by mouth, I did discuss the patient with the hospitalist who agreed to further evaluate and treat the patient. Medication Reconcilliation Current Medication List: was personally reviewed by me Consults Time Called: 0850 Consulting Physician: FABRICIO Feliciano Returned Call: 0855 I discussed the patients case with FABRICIO Feliciano. He is going to evaluate the patient for further treatment. Impression Primary Impression: Anemia Additional Impressions: Hypokalemia Hypocalcemia Encounter for smoking cessation counseling Alcohol abuse Epigastric abdominal pain Hypomagnesemia Scribe Attestation The scribe's documentation has been prepared under my direction and personally reviewed by me in its entirety. I confirm that the note above accurately reflects all work, treatment, procedures, and medical decision making performed by me. Departure Information Dispostion Being Evaluated By Hospitalist Referrals Jeb Burgess MD (PCP) Problem Qualifiers Primary Impression: Anemia Anemia type: unspecified type Qualified Codes: D64.9 - Anemia, unspecified
[2017-04-11] MEDS ORDERED: FoLIC ACID INJ 1 MG in SYRINGE 9.8 ML IV STA (07:24)
[2017-04-11] MEDS ORDERED: THIAMINE HCL 100 MG/ML 2 ML VIAL IV STA (07:24)
[2017-04-11 07:30] LABS: BASO % 0.8 %; BASO ABS # 0.04 K/uL (0-0.2); EOS % 0.4 %; EOS ABS # 0.02 K/uL (0-0.5); HEMATOCRIT 30.2 % (37-47); HEMOGLOBIN 10.3 g/dL (12.0-16.0); IG# 0.02 K/uL (0.00-0.02); LYMPH % 22.9 %; LYMPH ABS # 1.19 K/uL (1.2-3.4); MEAN CELL VOLUME 110.6 fL (80-100); MEAN CORPUSCULAR HEMOGLOBIN 37.7 pg (25-34); MEAN CORPUSCULAR HGB CONC 34.1 g/dl (32-36); MEAN PLATELET VOLUME 10.3 fL (7.4-10.4); MONO % 6.9 %; MONO ABS # 0.36 K/uL (0.11-0.59); NEUT % 68.6 %; NEUT ABS # 3.57 K/uL (1.4-6.5); PLATELET COUNT 189 K/uL (130-400); RED CELL DISTRIBUTION WIDTH CV 17.6 % (11.5-14.5); RED CELL DISTRIBUTION WIDTH SD 68.8 fL (36.4-46.3)
[2017-04-11 07:40] LABS: INR 1.1 (0.9-1.1); PTT PATIENT 23.8 SECONDS (21.0-31.0)
[2017-04-11] MEDS ORDERED: DiphenhydrAMINE HCL 50 MG/ML VIAL IV STA (07:44)
[2017-04-11 07:50] LABS: ALBUMIN 3.2 gm/dl (3.4-5.0); CREATININE 0.68 mg/dl (0.60-1.20); POTASSIUM 2.9 mmol/L (3.5-5.1)
--- NOTE | 2017-04-11 07:52 | DIAGNOSTIC IMAGING REPORT ---
CHEST AND ABDOMEN 2 VIEWS HISTORY: Generalized abdominal pain. Vomiting. COMPARISON: Chest and abdominal series 09/24/2016. FINDINGS: Multiple punctate calcified granulomas are seen throughout the lungs. The heart is normal in size. No new focal lung consolidations. Old, healed left-sided rib fractures. No pneumoperitoneum. No pneumatosis. Cholecystectomy. No renal calculi. The bowel gas pattern is unremarkable. No evidence for bowel obstruction. Multiple pelvic phleboliths are again noted. IMPRESSION: No acute cardiopulmonary process. No evidence for bowel obstruction. Electronically signed by: Hernandez Streeter M.D. 04/11/2017 7:50 AM Dictated Date/Time: 04/11/2017 7:48 AM
[2017-04-11] MEDS ORDERED: MAGNESIUM OXIDE 400 MG TAB PO STA (07:58)
[2017-04-11] MEDS ORDERED: POTASSIUM CHLORIDE 20 MEQ/15 ML UDC PO STA (07:58)
[2017-04-11] MEDS ORDERED: CALCIUM GLUCONATE 10% 10 ML VIAL IV STA (07:59)
[2017-04-11] MEDS ORDERED: OPTIRAY 320 IV PRN (08:00)
[2017-04-11 08:06] LABS: TOTAL PROTEIN 6.4 gm/dl (6.4-8.2)
[2017-04-11] MEDS ORDERED: MAGNESIUM SULFATE 1GM / D5W 1 GM BAG IV STA (08:06)
[2017-04-11] MEDS ORDERED: POTASSIUM CHLORIDE 10 MEQ TABCR ONE (08:28)
[2017-04-11] MEDS ORDERED: POTASSIUM CHLORIDE 20 MEQ TABCR PO STA (08:32)
--- NOTE | 2017-04-11 08:37 | DIAGNOSTIC IMAGING REPORT ---
CT ABD/PELVIS IV CONTRAST ONLY CLINICAL HISTORY: Upper abdominal pain. Nausea, vomiting, diarrhea. History of pancreatitis. C. difficile. COMPARISON STUDY: 10/09/2016 TECHNIQUE: Following the IV administration of 93 mL of Optiray-320, CT scan of the abdomen and pelvis was performed from the lung bases to the proximal femurs. Images are reviewed in the axial, sagittal, and coronal planes. IV contrast was administered without complication. A dose lowering technique was utilized adhering to the principles of ALARA. CT DOSE: 427.48 mGy.cm FINDINGS: Lower chest: There are few scattered granulomatous calcifications present. Liver: There is severe hepatic steatosis. There is a stable 15 mm hyperdense focus within the right hepatic lobe. There is an equivocal second 8 mm hyperdense focus within the right hepatic lobe.. Gallbladder: Surgically absent Spleen: Normal in size and attenuation. Pancreas: Unremarkable. Adrenal glands: Unremarkable. Kidneys: There is symmetric renal cortical enhancement. The kidneys are normal in size without hydronephrosis. Bowel: There are no transition zones to indicate bowel obstruction. There are no findings to indicate acute appendicitis. There are scattered colonic diverticula. There is submucosal fat hypertrophy within the colon. There is north colonic wall thickening most pronounced within the sigmoid. The findings are consistent with a pancolitis. Peritoneum: There is no intraperitoneal free air or abdominal ascites. Vasculature: The abdominal aorta is normal in course and caliber. Adenopathy: None. Pelvic viscera: The uterus appears surgically absent Skeletal structures: There is left-sided sacroiliitis. IMPRESSION: 1. Severe hepatic steatosis 2. Stable 15 mm lesion within the right hepatic lobe. There is an equivocal second 9 mm right hepatic lobe lesion 3. Stable submucosal fat hypertrophy within the colon 4. No evidence of bowel obstruction. No evidence of free air 5. Suspected colonic wall thickening most pronounced within the left colon. A colitis is suspected. Electronically signed by: Ramon Dominique M.D. 04/11/2017 8:36 AM Dictated Date/Time: 04/11/2017 8:28 AM
[2017-04-11] MEDS ORDERED: METOCLOPRAMIDE HCL INJ 5 MG/ML 2 ML VIAL IV STA (08:49)
[2017-04-11] MEDS ORDERED: ACETAMINOPHEN 325 MG TAB PO PRN (09:00)
[2017-04-11] MEDS ORDERED: ONDANSETRON INJ 2 MG/ML 2 ML VIAL IV PRN (09:00)
[2017-04-11] MEDS ORDERED: IV FLUIDS COMPLETED PRN (09:15)
--- NOTE | 2017-04-11 09:48 | History and Physical ---
History & Physical Date & Time of Service: Apr 11, 2017 at 09:28 Chief Complaint: Not Feeling,Not Eaten In Wk,Can't Keep Food Down Primary Care Physician: Jeb Burgess MD History of Present Illness Source: patient This is a 52 yo F with PMHx of Asthma, HTN, anxiety, c. diff colitis, alcohol abuse, tobacco abuse, who presents with 1 week of nausea, vomiting and diarrhea. She has not been able to tolerate PO intake. Pt reports she has been having multiple bouts of vomiting daily, denies any hematemesis. She reports diarrhea seems to come and go in the past week, where one day she does not have any bowel movements and the next she has 4. She reports epigastric burning and pain currently which is waxing and waning. This morning she was lightheaded and dizzy, and required assistance with walking so presented to the ER. She denies consuming alcohol in the past week. She has smoked maybe 2 cigarettes daily since becoming ill. Pt denies sick contacts or consumption of raw foods. Pt is from home and lives alone. Past Medical/Surgical History Medical Problems: (1) Alcohol Abuse-Unspec (2) Anxiety (3) Anxiety State Nos (4) Asthma, Unspecified (5) Calculus Of Ureter (6) Diverticulosis Colon (W/O Ment Of Hemorrhage) (7) Gastroenteritis (8) Hypokalemia (9) Hypothyroidism Nos (10) Lumbago (11) Migraine Unspecified W/O Intract Mgrn W/O Status Migrainosus (12) Pancreatitis, acute Surgical Problems: (1) History of cholecystectomy (2) Hx of appendectomy Family History No significant family history Social History Smoking Status: Current Every Day Smoker Smokeless Tobacco Use: No Alcohol Use: heavy Drug Use: none Marital Status: single Housing status: lives alone, other Occupational Status: employed Immunizations History of Influenza Vaccine: No History of Tetanus Vaccine?: Yes History of Pneumococcal: No History of Hepatitis B Vaccine: No Hepatitis Immunization Date: Feb 06, 1990 Multi-Drug Resistant Organisms History of MDRO: No Allergies Coded Allergies: Penicillins (Verified Allergy, Intermediate, RASH/HIVES, 04/11/17) Sulfa Antibiotics (Verified Allergy, Intermediate, HIVES, 04/11/17) Codeine (Verified Allergy, Unknown, 04/11/17) Indomethacin (Verified Allergy, Unknown, 04/11/17) Iodine (Verified Allergy, Unknown, 04/11/17) [place] (Verified Allergy, Unknown, 04/11/17) Home Medications Scheduled Ipratropium-Albuterol (Combivent Respimat), 1 PUFF PO QID Losartan Potassium (Losartan Potassium), 50 MG PO DAILY Pantoprazole (Protonix), 40 MG PO DAILY Scheduled PRN Tramadol (Ultram), 1 TAB PO TID PRN for moderate pain Review of Systems Constitutional: + chills, + sweats, + weakness, + fatigue, No fever Eyes: No redness, No diplopia ENT: No nasal symptoms, No sore throat, No trouble swallowing Respiratory: No cough, No sputum, No wheezing, No shortness of breath Cardiovascular: No chest pain, No edema, No palpitations Abdomen: + pain, + nausea, + vomiting, + diarrhea, No constipation, No GI bleeding Musculoskeletal: No joint pain, No swelling Genitourinary - Female: No dysuria, No hematuria Neurologic: + weakness, No numbness/tingling, No balance problems Psychiatric: + anxiety Endocrine: + fatigue Integumentary: No rash, No itch Physical Exam Vital Signs Date Time Temp Pulse Resp B/P (MAP) Pulse Ox O2 Delivery O2 Flow Rate FiO2 04/11/17 09:00 92 16 152/77 100 Room Air 04/11/17 08:00 90 20 159/110 100 Room Air 04/11/17 07:46 90 04/11/17 06:43 37.0 117 18 130/90 100 Room Air General Appearance: WD/WN, + mild distress Head: normocephalic, atraumatic Eyes: PERRL, EOMI, + pertinent finding (MMD) ENT: hearing grossly normal, pharynx normal Neck: supple, no JVD Respiratory/Chest: chest non-tender, no respiratory distress, no accessory muscle use, + pertinent finding (on RA, + Expiratory wheeze throughout) Cardiovascular: regular rate, rhythm (slightly tachycardic), no murmur, normal peripheral pulses Abdomen/GI: normal bowel sounds, soft, + tenderness (in epigastric region with light palpation) Back: normal inspection Extremities/Musculoskelatal: normal inspection, no calf tenderness, no pedal edema Neurologic/Psych: alert, normal mood/affect, oriented x 3 Skin: normal color, warm/dry Diagnostics Laboratory Results Results Past 24 Hours Test 04/11/17 06:55 04/11/17 08:40 Range/Units White Blood Count 5.20 4.8-10.8 K/uL Red Blood Count 2.73 4.2-5.4 M/uL Hemoglobin 10.3 12.0-16.0 g/dL Hematocrit 30.2 37-47 % Mean Corpuscular Volume 110.6 80-100 fL Mean Corpuscular Hemoglobin 37.7 25-34 pg Mean Corpuscular Hemoglobin Concent 34.1 32-36 g/dl Platelet Count 189 130-400 K/uL Mean Platelet Volume 10.3 7.4-10.4 fL Neutrophils (%) (Auto) 68.6 % Lymphocytes (%) (Auto) 22.9 % Monocytes (%) (Auto) 6.9 % Eosinophils (%) (Auto) 0.4 % Basophils (%) (Auto) 0.8 % Neutrophils # (Auto) 3.57 1.4-6.5 K/uL Lymphocytes # (Auto) 1.19 1.2-3.4 K/uL Monocytes # (Auto) 0.36 0.11-0.59 K/uL Eosinophils # (Auto) 0.02 0-0.5 K/uL Basophils # (Auto) 0.04 0-0.2 K/uL RDW Standard Deviation 68.8 36.4-46.3 fL RDW Coefficient of Variation 17.6 11.5-14.5 % Immature Granulocyte % (Auto) 0.4 % Immature Granulocyte # (Auto) 0.02 0.00-0.02 K/uL Polychromasia 1+ Tear Drop Cells 1+ [place] Bodies 1+ Prothrombin Time 11.4 9.0-12.0 SECONDS Prothromb Time International Ratio 1.1 0.9-1.1 Activated Partial Thromboplast Time 23.8 21.0-31.0 SECONDS Partial Thromboplastin Ratio 0.9 Sodium Level 137 136-145 mmol/L Potassium Level 2.9 3.5-5.1 mmol/L Chloride Level 97 98-107 mmol/L Carbon Dioxide Level 25 21-32 mmol/L Anion Gap 16.0 3-11 mmol/L Blood Urea Nitrogen 9 7-18 mg/dl Creatinine 0.68 0.60-1.20 mg/dl Est Creatinine Clear Calc Drug Dose 97.6 ml/min Estimated GFR () 116.6 Estimated GFR (Non- 100.6 BUN/Creatinine Ratio 13.9 10-20 Random Glucose 93 70-99 mg/dl Calcium Level 7.0 8.5-10.1 mg/dl Magnesium Level 0.7 1.8-2.4 mg/dl Total Bilirubin 1.9 0.2-1 mg/dl Direct Bilirubin 0.8 0-0.2 mg/dl Aspartate Amino Transf (AST/SGOT) 113 15-37 U/L Alanine Aminotransferase (ALT/SGPT) 29 12-78 U/L Alkaline Phosphatase 235 45-117 U/L Total Protein 6.4 6.4-8.2 gm/dl Albumin 3.2 3.4-5.0 gm/dl Lipase 214 73-393 U/L Urine Color YELLOW Urine Appearance CLEAR CLEAR Urine pH 7.5 4.5-7.5 Urine Specific [place] 1.020 1.000-1.030 Urine Protein NEG NEG Urine Glucose (UA) NEG NEG Urine Ketones TRACE NEG Urine Occult Blood NEG NEG Urine Nitrite NEG NEG Urine Bilirubin NEG NEG Urine Urobilinogen NEG NEG Urine Leukocyte Esterase NEG NEG Diagnostic Radiology CHEST AND ABDOMEN 2 VIEWS HISTORY: Generalized abdominal pain. Vomiting. COMPARISON: Chest and abdominal series 09/24/2016. FINDINGS: Multiple punctate calcified granulomas are seen throughout the lungs. The heart is normal in size. No new focal lung consolidations. Old, healed left-sided rib fractures. No pneumoperitoneum. No pneumatosis. Cholecystectomy. No renal calculi. The bowel gas pattern is unremarkable. No evidence for bowel obstruction. Multiple pelvic phleboliths are again noted. IMPRESSION: No acute cardiopulmonary process. No evidence for bowel obstruction. Electronically signed by: Hernandez Streeter M.D. 04/11/2017 7:50 AM Dictated Date/Time: 04/11/2017 7:48 AM The status of this report is Signed. CT ABD/PELVIS IV CONTRAST ONLY CLINICAL HISTORY: Upper abdominal pain. Nausea, vomiting, diarrhea. History of pancreatitis. C. difficile. COMPARISON STUDY: 10/09/2016 TECHNIQUE: Following the IV administration of 93 mL of Optiray-320, CT scan of the abdomen and pelvis was performed from the lung bases to the proximal femurs. Images are reviewed in the axial, sagittal, and coronal planes. IV contrast was administered without complication. A dose lowering technique was utilized adhering to the principles of ALARA. CT DOSE: 427.48 mGy.cm FINDINGS: Lower chest: There are few scattered granulomatous calcifications present. Liver: There is severe hepatic steatosis. There is a stable 15 mm hyperdense focus within the right hepatic lobe. There is an equivocal second 8 mm hyperdense focus within the right hepatic lobe.. Gallbladder: Surgically absent Spleen: Normal in size and attenuation. Pancreas: Unremarkable. Adrenal glands: Unremarkable. Kidneys: There is symmetric renal cortical enhancement. The kidneys are normal in size without hydronephrosis. Bowel: There are no transition zones to indicate bowel obstruction. There are no findings to indicate acute appendicitis. There are scattered colonic diverticula. There is submucosal fat hypertrophy within the colon. There is north colonic wall thickening most pronounced within the sigmoid. The findings are consistent with a pancolitis. Peritoneum: There is no intraperitoneal free air or abdominal ascites. Vasculature: The abdominal aorta is normal in course and caliber. Adenopathy: None. Pelvic viscera: The uterus appears surgically absent Skeletal structures: There is left-sided sacroiliitis. IMPRESSION: 1. Severe hepatic steatosis 2. Stable 15 mm lesion within the right hepatic lobe. There is an equivocal second 9 mm right hepatic lobe lesion 3. Stable submucosal fat hypertrophy within the colon 4. No evidence of bowel obstruction. No evidence of free air 5. Suspected colonic wall thickening most pronounced within the left colon. A colitis is suspected. Electronically signed by: Ramon Dominique M.D. 04/11/2017 8:36 AM Dictated Date/Time: 04/11/2017 8:28 AM The status of this report is Signed. Impression Assessment and Plan This is a 52 yo F with PMHx of Asthma, HTN, anxiety, c. diff colitis, alcohol abuse, tobacco abuse, who presents with 1 week of nausea, vomiting and diarrhea. Colitis - Admit to med surg for observation - CT abd/pelvis showing colonic thickening in the left colon - Checking c. diff with hx in September 2016 - Antiemetics for nausea ordered, pantoprazole for GI ppx with hx of etoh use - Pt reports last drink was over 1 week ago Hypokalemia Severe hypomagnesemia - Pt with multiple electrolyte abnormalities - Replaced via IV and PO in the ER - Will place on NSS + Kcl 20 meq at 125 for next day - Follow am prp Elevated Transaminase Severe hepatic steatosis - Stable 15 mm lesion within the right hepatic lobe. There is an equivocal 3. Stable submucosal fat hypertrophy within the colon - Etoh cessation encouraged - Total bili elevated at 1.9, direct = 0.8, AST= 113, Alk phos 234, -- follow with am LFTs ETOH use - start MVI, folic acid, thiamine daily while here in the hospital Asthma - Continue home combivent inhaler, duonebs prn - stable HTN - Cont losartan for now, BP elevated > 160 DVT ppx: ambulatory, teds, scds CODE STATUS: FULL CODE Disposition: From home, lives alone. Level of Care Med/Surg Resuscitation Status FULL RESUSCITATION VTE Prophylaxis VTE Risk Assessment Done? Y/N: Yes Risk Level: Low Given or contraindicated: Treatment not indicated Note Supervising Note DR. BOURGEOIS I performed a history and physical examination. I reviewed and agree with above note, while also discussing analysis and plan with patient and APC. I answered all of the patient's questions while I was in the room with the patient. My physical exam is below: Physical Exam: General Appearance: WD/WN, mild distress ENT: hearing grossly normal Neck: supple, no JVD, trachea midline Respiratory/Chest: expiratory wheeze heard throughout no respiratory distress, no accessory muscle use Cardiovascular: regular rate, rhythm, no gallop, no murmur Abdomen / GI: normal bowel sounds, tenderness to epigastric region, soft, no guardign Neurologic/Psychiatric: alert, oriented x 3 Skin: normal color, warm/dry
[2017-04-11] MEDS ORDERED: ACETAMINOPHEN 325 MG TAB ONE (09:55)
[2017-04-11 11:05] VITALS: BP 144/98; PULSE 100; TEMP 36.9; Ht 172.7 cm; Wt 70.8 kg
[2017-04-11] MEDS: NSS + 20MEQ KCL 1000ML 1,000 ML IV SCH ×2 (11:13→18:47)
[2017-04-11] MEDS ORDERED: FAMOTIDINE 20MG IV PUSH 5 ML IV ONE (11:30)
[2017-04-11] MEDS ORDERED: FAMOTIDINE IV INJ 20 MG in SYRINGE 3 ML IV SCH (11:30)
[2017-04-11] MEDS: PANTOprazole SOD 40 MG TAB PO SCH (12:28)
[2017-04-11] MEDS: LOSARTAN POTASSIUM 50 MG TAB PO SCH (12:28)
[2017-04-11] MEDS: IPRATROPIUM BROMIDE/ALBUTEROL respimat INH INH SCH ×3 (13:10→21:22)
[2017-04-11 13:30] LABS: CALCIUM 6.6 mg/dl (8.5-10.1); CREATININE 0.76 mg/dl (0.60-1.20)
[2017-04-11 15:04] VITALS: BP 149/94; PULSE 84; TEMP 37; O2SAT 96
[2017-04-11] MEDS ORDERED: NURSING VERBAL MED ORDER ONE (21:00)
[2017-04-11] MEDS ORDERED: hydrOXYzine HCL 25 MG TAB PO PRN (21:15)
[2017-04-11] MEDS ORDERED: MAGNESIUM SULFATE 1GM / D5W 1 GM in PREMIXED IN D5W 100 ML IV ONE (22:45)
[2017-04-11 23:15] VITALS: BP 117/80; PULSE 84; TEMP 37; O2SAT 98
[2017-04-12] MEDS ORDERED: LORAZEPAM 1 MG TAB PO ONE (01:15)
[2017-04-12] MEDS ORDERED: NURSING VERBAL MED ORDER ONE (01:15)
[2017-04-12] MEDS: NSS + 20MEQ KCL 1000ML 1,000 ML IV SCH ×3 (02:31→19:01)
[2017-04-12 07:13] LABS: BASO % 1.3 %; BASO ABS # 0.04 K/uL (0-0.2); EOS % 1.9 %; EOS ABS # 0.06 K/uL (0-0.5); HEMATOCRIT 27.4 % (37-47); HEMOGLOBIN 8.9 g/dL (12.0-16.0); IG# 0.02 K/uL (0.00-0.02); LYMPH % 39.6 %; LYMPH ABS # 1.24 K/uL (1.2-3.4); MEAN CELL VOLUME 111.8 fL (80-100); MEAN CORPUSCULAR HEMOGLOBIN 36.3 pg (25-34); MEAN CORPUSCULAR HGB CONC 32.5 g/dl (32-36); MEAN PLATELET VOLUME 10.5 fL (7.4-10.4); MONO % 6.1 %; MONO ABS # 0.19 K/uL (0.11-0.59); NEUT % 50.5 %; NEUT ABS # 1.58 K/uL (1.4-6.5); NUCLEATED RED BLOOD CELL ABS 0.03 K/uL (0-0); PLATELET COUNT 140 K/uL (130-400); RED CELL DISTRIBUTION WIDTH CV 17.3 % (11.5-14.5); RED CELL DISTRIBUTION WIDTH SD 68.3 fL (36.4-46.3); WHITE BLOOD COUNT 3.13 K/uL (4.8-10.8)
[2017-04-12 07:33] VITALS: BP 131/88; PULSE 82; TEMP 36.8; O2SAT 98
[2017-04-12 07:38] LABS: ALBUMIN 2.5 gm/dl (3.4-5.0); CALCIUM 6.5 mg/dl (8.5-10.1); CREATININE 0.53 mg/dl (0.60-1.20)
[2017-04-12 07:48] LABS: TOTAL PROTEIN 5.3 gm/dl (6.4-8.2)
[2017-04-12 08:00] VITALS: O2SAT 98
[2017-04-12] MEDS: IPRATROPIUM BROMIDE/ALBUTEROL respimat INH INH SCH ×4 (08:57→21:33)
[2017-04-12] MEDS: FLINTSTONES COMPLETE CHEWABLE TAB PO SCH (08:57)
[2017-04-12] MEDS: THIAMINE HCL 100 MG TAB PO SCH (08:57)
[2017-04-12] MEDS: PANTOprazole SOD 40 MG TAB PO SCH ×2 (08:57→21:35)
[2017-04-12] MEDS: LOSARTAN POTASSIUM 50 MG TAB PO SCH (08:57)
[2017-04-12] MEDS ORDERED: PANTOprazole INJ 40 MG in SYRINGE 0 ML IV SCH (09:00)
[2017-04-12] MEDS ORDERED: MAGNESIUM SULFATE 1GM / D5W 1 GM in PREMIXED IN D5W 100 ML IV STA (09:14)
[2017-04-12] MEDS ORDERED: CALCIUM GLUCONATE 10% 1,000 MG in SODIUM CHLORIDE 0.9% 50ML 50 ML IV STA (09:15)
[2017-04-12] MEDS ORDERED: POTASSIUM CHLORIDE 20 MEQ TABCR PO STA (09:57)
[2017-04-12] MEDS ORDERED: FAMOTIDINE IV INJ 20 MG in SYRINGE 3 ML IV SCH (10:00)
[2017-04-12] MEDS ORDERED: FAMOTIDINE IV INJ 20 MG in DEXTROSE 5% 100ML 100 ML IV SCH (10:00)
[2017-04-12] MEDS ORDERED: MAGNESIUM OXIDE 400 MG TAB PO ONE (10:30)
[2017-04-12] MEDS ORDERED: CALCIUM GLUCONATE 10% 1,000 MG in SODIUM CHLORIDE 0.9% 50ML 50 ML IV ONE ×2 (10:30→19:30)
[2017-04-12] MEDS ORDERED: MAGNESIUM SULFATE 1GM / D5W 1 GM in PREMIXED IN D5W 100 ML IV ONE (11:00)
[2017-04-12 14:52] VITALS: BP 128/89; PULSE 95; TEMP 36.8; O2SAT 99
--- NOTE | 2017-04-12 17:01 | Progress Note ---
Subjective Date of Service: Apr 12, 2017. Subjective Pt evaluation today including: conversation w/ patient, physical exam 52 yo female who presents to the hospital with severe abdominal pain mainly in the epiigastric region. patient reports no significant improvement today. She states that the pain is so severe that patient cries. Pateitn denies any diarrhea, fever, chills. Problem List Medical Problems: (1) Abdominal pain Status: Acute (2) Acute pancreatitis Status: Acute (3) Alcohol abuse Status: Acute (4) Alcohol intoxication Status: Acute (5) Anemia Status: Acute (6) C. difficile colitis Status: Acute (7) C. difficile diarrhea Status: Acute (8) Chest pain Status: Acute (9) Contusion of multiple sites Status: Acute (10) Dehydration Status: Acute (11) Encounter for smoking cessation counseling Status: Acute (12) Epigastric abdominal pain Status: Acute (13) Fall Status: Acute (14) Fall due to slipping on ice or snow Status: Acute (15) Fracture of left distal radius Status: Acute (16) Hypocalcemia Status: Acute (17) Hypomagnesemia Status: Acute (18) Hypomagnesemia Status: Acute (19) Lactic acidosis Status: Acute (20) Pancreatitis Status: Acute Review of Systems Constitutional: No fever, No chills Respiratory: No cough, No sputum Cardiac: No chest pain, No orthopnea Abdomen: + pain, + nausea Musculoskeletal: No joint pain Female : No dysuria Heme: No abnormal bleeding/bruising Endo: No fatigue Skin: No rash, No itch All Other Systems: Reviewed and Negative Objective Vital Signs Date Time Temp Pulse Resp B/P (MAP) Pulse Ox O2 Delivery O2 Flow Rate FiO2 04/12/17 14:52 36.8 95 20 128/89 (102) 99 Room Air 04/12/17 08:00 98 Room Air 04/12/17 07:33 36.8 82 18 131/88 (102) 98 Room Air 04/12/17 00:15 Room Air 04/11/17 23:15 37.0 84 18 117/80 (92) 98 Room Air Physical Exam General Appearance: WD/WN, no apparent distress Neck: supple, no adenopathy Respiratory/Chest: chest non-tender, lungs clear, normal breath sounds Cardiovascular: regular rate, rhythm, no edema Abdomen: normal bowel sounds, non tender, soft Extremities: normal range of motion Skin: normal color Lymphatic: no adenopathy Laboratory Results Last 24 Hours Test 04/12/17 06:50 White Blood Count 3.13 K/uL Red Blood Count 2.45 M/uL Hemoglobin 8.9 g/dL Hematocrit 27.4 % Mean Corpuscular Volume 111.8 fL Mean Corpuscular Hemoglobin 36.3 pg Mean Corpuscular Hemoglobin Concent 32.5 g/dl Platelet Count 140 K/uL Mean Platelet Volume 10.5 fL Neutrophils (%) (Auto) 50.5 % Lymphocytes (%) (Auto) 39.6 % Monocytes (%) (Auto) 6.1 % Eosinophils (%) (Auto) 1.9 % Basophils (%) (Auto) 1.3 % Neutrophils # (Auto) 1.58 K/uL Lymphocytes # (Auto) 1.24 K/uL Monocytes # (Auto) 0.19 K/uL Eosinophils # (Auto) 0.06 K/uL Basophils # (Auto) 0.04 K/uL RDW Standard Deviation 68.3 fL RDW Coefficient of Variation 17.3 % Immature Granulocyte % (Auto) 0.6 % Immature Granulocyte # (Auto) 0.02 K/uL Nucleated RBC Absolute Count (auto) 0.03 K/uL Nucleated Red Blood Cells % 0.8 % Large Platelets 1+ Macrocytosis PRESENT [place] Bodies 1+ Tear Drop Cells 1+ Sodium Level 141 mmol/L Potassium Level 3.0 mmol/L Chloride Level 106 mmol/L Carbon Dioxide Level 29 mmol/L Anion Gap 6.0 mmol/L Blood Urea Nitrogen 4 mg/dl Creatinine 0.53 mg/dl Est Creatinine Clear Calc Drug Dose 125.2 ml/min Estimated GFR () 126.5 Estimated GFR (Non- 109.2 BUN/Creatinine Ratio 7.4 Random Glucose 95 mg/dl Estimated Average Glucose 68 mg/dl Hemoglobin A1c 4.0 % Calcium Level 6.5 mg/dl Magnesium Level 1.1 mg/dl Total Bilirubin 1.1 mg/dl Direct Bilirubin 0.5 mg/dl Aspartate Amino Transf (AST/SGOT) 88 U/L Alanine Aminotransferase (ALT/SGPT) 24 U/L Alkaline Phosphatase 186 U/L Total Protein 5.3 gm/dl Albumin 2.5 gm/dl Triglycerides Level 99 mg/dl Cholesterol Level 181 mg/dl HDL Cholesterol 100 mg/dl LDL Cholesterol, Calculated 61 mg/dl VLDL Cholesterol, Calculated 20 mg/dl Cholesterol/HDL Ratio 1.8 Assessment and Plan This is a 52 yo F with PMHx of Asthma, HTN, anxiety, c. diff colitis, alcohol abuse, tobacco abuse, who presents with 1 week of nausea, vomiting and diarrhea. Severe abdominal pain Unsure if patient is malingering. However, this may be from alcoholic gastritis. Px did improve with IV H2 blockers. will continue with this approach I discussed case with GI and will obtain a upper endoscopy tomorrow. Colitis - CT abd/pelvis showing colonic thickening in the left colon - Checking c. diff with hx in September 2016 -Doubt this as patient has not had a BM today. - Antiemetics for nausea ordered, pantoprazole for GI ppx with hx of etoh use - Pt reports last drink was over 1 week ago Hypokalemia Severe hypomagnesemia Likely from alcohol use - Pt with multiple electrolyte abnormalities - Replaced via IV and PO in the ER - Will place on NSS + Kcl 20 meq at 125 for next day - Follow am prp Elevated Transaminase Severe hepatic steatosis - Stable 15 mm lesion within the right hepatic lobe. There is an equivocal 3. Stable submucosal fat hypertrophy within the colon - Etoh cessation encouraged - Total bili elevated at 1.9, direct = 0.8, AST= 113, Alk phos 234, -- follow with am LFTs ETOH use - start MVI, folic acid, thiamine daily while here in the hospital Asthma - Continue home combivent inhaler, duonebs prn - stable HTN - Cont losartan for now, BP elevated > 160 DVT ppx: ambulatory, teds, scds CODE STATUS: FULL CODE Disposition: From home, lives alone.
[2017-04-12] MEDS ORDERED: LORAZEPAM 0.5 MG TAB PO PRN (17:15)
[2017-04-12] MEDS ORDERED: FAMOTIDINE IV INJ 20 MG in SYRINGE 3 ML IV ONE (17:30)
[2017-04-12] MEDS ORDERED: FAMOTIDINE IV INJ 20 MG in DEXTROSE 5% 100ML 100 ML IV ONE (17:30)
[2017-04-12 17:41] LABS: CALCIUM 6.6 mg/dl (8.5-10.1); CREATININE 0.58 mg/dl (0.60-1.20); POTASSIUM 2.9 mmol/L (3.5-5.1)
--- NOTE | 2017-04-12 19:42 | GASTROINTESTINAL CONSULTATION ---
DATE OF CONSULTATION: 04/12/2017 REQUESTING PROVIDER: Dr. Mitchell. CHIEF COMPLAINT: Nausea, vomiting, fatty liver, diarrhea. HISTORY OF PRESENT ILLNESS: Ms. Harrison is a 52-year-old white female with a past medical history significant for asthma, hypertension, alcohol abuse, fatty liver, colitis who reports the onset of increased nausea and vomiting several times daily for approximately 1 week prior to admission. The patient reports that although she had been a steady drinker in the past, she had cut down considerably, although a week or 2 ago, she had taken a couple drinks of bourbon. She denies any hematemesis, coffee-ground emesis, melena or bright red blood per rectum. There is no fever or shaking chills associated with her diarrhea. She does not recall any recent antibiotics. The symptoms persisted, and she presented to the Emergency Room for evaluation. PAST MEDICAL HISTORY: Includes alcohol abuse, anxiety, renal calculi, colonic diverticulosis, report of "colitis" initially diagnosed by Dr. Vega several years ago. She also had been seen in [facility]. PAST SURGICAL HISTORY: The patient also has a history of migraines, prior acute pancreatitis. She had surgically had a cholecystectomy and an appendectomy. FAMILY HISTORY: Noncontributory. SOCIAL HISTORY: The patient uses alcoholic beverages and smokes 2-1/2 cigarettes daily. She has cut back significantly. She is single, lives alone. ALLERGIES: INCLUDE PENICILLIN, SULFA, CODEINE, INDOMETHACIN, IODINE AND PEACH. HOME MEDICATIONS: Include ipratropium, losartan and pantoprazole. REVIEW OF SYSTEMS: Otherwise noncontributory based on 13-point exam except for mentioned above. PHYSICAL EXAMINATION: VITAL SIGNS: On admission, the patient afebrile at 37.0, blood pressure 130/90, respirations 18, heart rate 117 and 100% on room air. GENERAL: The patient is awake, alert and oriented x3. HEENT: Sclerae are anicteric, conjunctiva moist. Oral mucosa moist. Normocephalic, atraumatic. NECK: There is no cervical or supraclavicular adenopathy. I do not appreciate thyromegaly. Neck is normal range of motion. LUNGS: Clear to auscultation, although diminished breath sounds are noted at both bases. HEART: Normal S1, S2, without rubs, gallops or murmurs. ABDOMEN: Soft. Minimally tender without rebound or guarding. There is no evidence of ascites or shifting dullness. I do not appreciate rebound or guarding. There is no hepatosplenomegaly. EXTREMITIES: Showed normal range of motion without focal neurologic defect. There is no asterixis. There are no rashes. Without clubbing, cyanosis or edema. RECTAL: Deferred at this time. LABORATORY STUDIES: On admission, white count 5.2, hemoglobin 10.3, MCV 110 and platelets 189,000. The patient has an INR of 1.1, BUN and creatinine were 9 and 0.7, potassium was low at 2.9, chloride low at 97, bicarbonate normal 25 and sodium was normal at 136. Total bilirubin 1.9, direct 0.8; AST 113, ALT 29, alkaline phosphatase 235, albumin 3.2. Urinalysis revealed no evidence for a urinary tract infection by way of negative leukocyte esterase, nitrite or occult blood. IMAGING DATA: The patient underwent a chest x-ray which showed no acute disease or evidence of bowel obstruction on flat plate. The CT scan suggested a surgically absent gallbladder, severe hepatic steatosis, a stable right hepatic lobe hypodensity and a possible right hepatic lobe second density. The pancreas is unremarkable as is the adrenal gland and spleen is normal size. There are no transition noted in the bowel or evidence of acute appendicitis. There are scattered colonic diverticuli, but suggestion of pancolonic wall thickening, most pronounced in the sigmoid colon, that suggests a pancolitis. There is no evidence of ascites. There is no abnormal adenopathy. Todays laboratory study show white count is now 3.1, hemoglobin down to 8.9, MCV 111, platelets 140,000. Serum chemistries show that her potassium had slightly corrected, but now back to admission values. The BUN and creatinine are low at 3 and 0.6. Hemoglobin A1c is 4. Magnesium level is low at 1.5. The patient has received some magnesium IV. AST has decreased to 88, ALT 24, total and direct are 1.1 and 0.5, bilirubin and alkaline phosphatase is down to 186. Lipids are satisfactory. Lipase was normal at 214. HOSPITAL MEDICATIONS: Include potassium, magnesium, pantoprazole, lorazepam, multivitamin, folic acid, thiamine, hydroxyzine and losartan. IMPRESSION AND PLAN: The patient with a history of colitis, fatty liver disease versus possible acute alcoholic liver disease. The patient's transaminases do show a 3:1 ratio of AST to ALT. The patient reports that she has had some increase in alcohol intake, but this has been relatively new for her, although she had been a heavier drinker in the past. I made the following recommendations: I believe it is reasonable to perform an upper endoscopy given the patient's nausea, vomiting to exclude peptic ulcer disease and sample for H. pylori. The source of the patient's thickening of the colon is unclear. There is a history of "colitis" but she does not recall specific diagnosis of Crohn's or ulcerative colitis and she does not recall any specific agents for its treatment other than cholestyramine powder to control her stool patterns. At some point, it may be reasonable to consider repeating a colonoscopy to determine if there is an active colitis. The patient did have a colonoscopy in June [address] Giraldo, that suggested hemorrhoids and random biopsies of the colon. She also had an upper endoscopy in June of 2016 and this revealed diffuse inflammation in the stomach with granularity with biopsies taken. There is also inflammation in the duodenal bulb. At that time, the patient had experienced a recent pancreatitis. The pathology from the biopsies of the stomach revealed a normal small bowel mucosa, chronic gastritis that was mild without H. pylori positivity. I do not see the report for the random biopsies from the colon, from June 2015. These were located and revealed random colon normal colon mucosa without evidence of acute or chronic colitis or dysplasia. We will plan for upper endoscopy tomorrow and perhaps eventual colonoscopy. I did speak to the patient at length regarding the importance of strictly avoiding alcohol as if this can either be primarily related to the patient's fatty liver on imaging this hospitalization as well as her LFTs as well as contribute to injury should a second cause of just fatty liver be present. At some point, screening for evidence of hepatitis A or B and if negative, vaccination schedules can be considered as an outpatient. She did have hepatitis C testing in April of this year and was negative. In April 2011, she was H. pylori antibody negative, by serum. She also had celiac markers that were negative in May of 2015. All questions answered. We will plan for upper endoscopy with n.p.o. after midnight except medications. Please correct electrolytes as best as possible including magnesium, phosphorus and potassium. Thank you for allowing us to participate in this patient's care.
[2017-04-12] MEDS: MAGNESIUM SULFATE 1GM / D5W 1 GM in PREMIXED IN D5W 100 ML IV SCH ×2 (20:14→21:36)
[2017-04-12] MEDS: POTASSIUM CHLR 10 MEQ / WTR 10 MEQ in PREMIXED WATER 100 ML IV SCH ×2 (20:14→21:58)
[2017-04-12] MEDS ORDERED: POTASSIUM CHLORIDE 20 MEQ TABCR PO SCH (21:00)
[2017-04-12] MEDS: MAGNESIUM OXIDE 400 MG TAB PO SCH (21:34)
[2017-04-12] MEDS: POTASSIUM CHLORIDE PWD 20 MEQ PACK PO SCH (21:45)
[2017-04-12 23:42] VITALS: BP 122/88; PULSE 95; TEMP 36.6; O2SAT 100
[2017-04-13] MEDS: NSS + 20MEQ KCL 1000ML 1,000 ML IV SCH ×3 (03:02→17:50)
[2017-04-13] MEDS: VANCOMYCIN HCL 125 MG/2.5ML SOLN PO SCH ×2 (03:03→07:52)
[2017-04-13] MEDS: RASPBERRY SYRUP 5 ML UDP PO SCH ×3 (03:03→12:45)
[2017-04-13] MEDS ORDERED: NURSING VERBAL MED ORDER ONE ×4 (04:15→16:00)
[2017-04-13] MEDS ORDERED: MoRPHine SULFATE 2 MG/ML CARP IV ONE (04:30)
[2017-04-13 07:06] LABS: BASO % 1.3 %; BASO ABS # 0.04 K/uL (0-0.2); EOS % 1.6 %; EOS ABS # 0.05 K/uL (0-0.5); HEMATOCRIT 25.5 % (37-47); HEMOGLOBIN 8.4 g/dL (12.0-16.0); IG# 0.01 K/uL (0.00-0.02); LYMPH % 34.8 %; LYMPH ABS # 1.08 K/uL (1.2-3.4); MEAN CELL VOLUME 113.3 fL (80-100); MEAN CORPUSCULAR HEMOGLOBIN 37.3 pg (25-34); MEAN CORPUSCULAR HGB CONC 32.9 g/dl (32-36); MEAN PLATELET VOLUME 9.6 fL (7.4-10.4); MONO % 9.7 %; NEUT % 52.3 %; NEUT ABS # 1.62 K/uL (1.4-6.5); PLATELET COUNT 120 K/uL (130-400); RED CELL DISTRIBUTION WIDTH CV 17.4 % (11.5-14.5); RED CELL DISTRIBUTION WIDTH SD 69.5 fL (36.4-46.3)
[2017-04-13 07:30] LABS: CALCIUM 6.3 mg/dl (8.5-10.1); CREATININE 0.45 mg/dl (0.60-1.20)
[2017-04-13] MEDS: LOSARTAN POTASSIUM 50 MG TAB PO SCH (07:52)
[2017-04-13] MEDS: MAGNESIUM OXIDE 400 MG TAB PO SCH (07:52)
[2017-04-13] MEDS: FLINTSTONES COMPLETE CHEWABLE TAB PO SCH (07:52)
[2017-04-13] MEDS: PANTOprazole SOD 40 MG TAB PO SCH (07:52)
[2017-04-13] MEDS: POTASSIUM CHLORIDE PWD 20 MEQ PACK PO SCH (07:52)
[2017-04-13] MEDS: THIAMINE HCL 100 MG TAB PO SCH (07:52)
[2017-04-13 07:53] VITALS: BP 130/89; PULSE 90; TEMP 36.7; O2SAT 98
[2017-04-13] MEDS: IPRATROPIUM BROMIDE/ALBUTEROL respimat INH INH SCH ×3 (07:53→16:05)
[2017-04-13 08:00] VITALS: O2SAT 98
[2017-04-13] MEDS ORDERED: MoRPHine SULFATE 2 MG/ML CARP ONE ×2 (09:26→15:52)
[2017-04-13] MEDS ORDERED: MIDAZOLAM HCL 1 MG/ML 2ML VIAL ONE (11:30)
[2017-04-13] MEDS ORDERED: LIDOCAINE HCL 2% 2 ML VIAL (20MG/ML) ONE (11:30)
[2017-04-13] MEDS ORDERED: ONDANSETRON INJ 2 MG/ML 2 ML VIAL ONE (11:30)
[2017-04-13] MEDS ORDERED: PROPOFOL IV EMULSION 10 MG/ML 20 ML VIAL IV ONE (11:30)
--- NOTE | 2017-04-13 11:30 | Endo History and Physical ---
History & Physical Date of Service: Apr 13, 2017. Chief Complaint: Anemia, abd pain Referring Physician: Dr Burgess History of Present Illness For EGD Past Medical History Arthritis, Gastrointestinal Disorder, Anxiety, Reflux, Hypertension Past Surgical History Hx Cardiac Surgery: No Hx Internal Defibrillator: No Hx Pacemaker: No Hx Abdominal Surgery: Yes (Lap Ina, NORBERT, APPY) Hx Post-Op Nausea and Vomiting: No Hx Cancer Surgery: No Hx Thoracic Surgery: No Hx Orthopedic: Yes (Left foot fx repair with hardware) Hx Urinary Tract Surgery: No Social History Smoking Status: Current Every Day Smoker Smokeless Tobacco Use: No Hx Substance Use: No Hx Alcohol Use: Yes ("Occassionally, last drank last week") Allergies Coded Allergies: Penicillins (Verified Allergy, Intermediate, RASH/HIVES, 04/11/17) Sulfa Antibiotics (Verified Allergy, Intermediate, HIVES, 04/11/17) Codeine (Verified Allergy, Unknown, 04/11/17) Indomethacin (Verified Allergy, Unknown, 04/11/17) Iodine (Verified Allergy, Unknown, 04/11/17) Nash (Verified Allergy, Unknown, 04/11/17) Current Medications Reported Home Medications Medications Dose Route/Sig Max Daily Dose Days Date Category Protonix (Pantoprazole) 40 Mg Tab 40 Mg PO DAILY 04/11/17 Reported Losartan Potassium 50 Mg Tab 50 Mg PO DAILY 05/16/16 Reported Combivent Respimat (Ipratropium-Albuterol) 1 Aer Aer 1 Puff PO QID 05/16/16 Reported Vital Signs Weight (Kilograms): 70.800 Height (Feet): 5 Height (Inches): 8.00 Date Time Temp Pulse Resp B/P (MAP) Pulse Ox O2 Delivery O2 Flow Rate FiO2 04/13/17 11:03 86 18 135/95 (108) 97 04/13/17 08:00 98 Room Air 04/13/17 07:53 36.7 90 20 130/89 (103) 98 Room Air 04/13/17 00:10 Room Air 04/12/17 23:42 36.6 95 19 122/88 (99) 100 Room Air 04/12/17 16:00 Room Air 04/12/17 14:52 36.8 95 20 128/89 (102) 99 Room Air Physical Exam General Appearance: WD/WN, + pertinent finding (Tremor) Respiratory/Chest: Respiratory effort: no dyspnea Cardiovascular: Apical Impulse: not displaced Heart Auscultation: RRR Abdomen: Inspection & Palpation: soft Assessment and Plan Anemia, abd pain for EGD
--- NOTE | 2017-04-13 11:46 | Discharge Instructions ---
Endoscopy Patient Instructions Date / Procedure(s) Performed Apr 13, 2017. EGD Allergy Information Coded Allergies: Penicillins (Verified Allergy, Intermediate, RASH/HIVES, 04/11/17) Sulfa Antibiotics (Verified Allergy, Intermediate, HIVES, 04/11/17) Codeine (Verified Allergy, Unknown, 04/11/17) Indomethacin (Verified Allergy, Unknown, 04/11/17) Iodine (Verified Allergy, Unknown, 04/11/17) Mccreary (Verified Allergy, Unknown, 04/11/17) Discharge Date / Findings Apr 13, 2017. Gastric ulcer, duodenitis Medication Instructions Restart Stopped Medication(s): resume meds Current Inpatient Medications Medications (Trade) Dose Ordered Sig/Razia Route Start Time Stop Time Status Last Admin Dose Admin Ioversol (Optiray 320) 100 ml UD PRN IV 04/11/17 08:00 04/15/17 07:59 Acetaminophen (Tylenol Tab) 650 mg Q4H PRN PO 04/11/17 09:00 05/11/17 08:59 Ondansetron HCl (Zofran Inj) 4 mg Q6H PRN IV 04/11/17 09:00 05/11/17 08:59 04/11/17 17:32 4 MG Potassium Chloride/Sodium Chloride 1,000 ml @ 125 mls/hr Q8H IV 04/11/17 11:00 05/11/17 10:59 04/13/17 10:48 125 MLS/HR Albuterol/ Ipratropium (Combivent Respimat Inh) 1 puffs QID INH 04/11/17 13:00 05/11/17 12:59 04/13/17 07:53 1 PUFFS Losartan Potassium (coZAAR TAB) 50 mg DAILY PO 04/11/17 09:00 05/11/17 08:59 04/13/17 07:52 50 MG Miscellaneous (Iv Fluids Completed) 1 ea PRN PRN N/A 04/11/17 09:15 04/11/18 09:14 Multivitamins (Flintstones Complete Tab) 1 tab QAM PO 04/12/17 09:00 05/12/17 08:59 04/13/17 07:52 1 TAB Folic Acid (Folvite Tab) 1 mg QAM PO 04/12/17 09:00 05/12/17 08:59 04/13/17 07:52 1 MG Thiamine HCl (Vitamin B-1 Tab) 100 mg QAM PO 04/12/17 09:00 05/12/17 08:59 04/13/17 07:52 100 MG Magnesium Oxide (Mag-Ox Tab) 400 mg BID PO 04/12/17 21:00 05/12/17 20:59 04/13/17 07:52 400 MG Pantoprazole Sodium (Protonix Tab) 40 mg BID PO 04/12/17 21:00 05/11/17 08:59 04/13/17 07:52 40 MG Lorazepam (Ativan Tab) 0.5 mg HS PRN PO 04/12/17 17:15 05/12/17 17:14 04/12/17 22:30 0.5 MG Potassium Chloride (Klor-Con Pwd) 40 meq BID PO 04/12/17 21:00 05/12/17 20:59 04/12/17 21:45 40 MEQ Raspberry (Raspberry Syrup 5ml Cup) 5 ml QID PO 04/13/17 03:00 04/27/17 02:59 04/13/17 07:52 5 ML Ondansetron HCl (Zofran Inj) 4 mg STK-MED ONCE .ROUTE 04/13/17 11:30 04/13/17 11:31 Provider Instructions Activity Restrictions - No exercising or heavy lifting for 24 hours. - Do not drink alcohol the day of the procedure. - Do not drive a car or operate machinery until the day after the procedure. - Do not make any important decisions or sign important papers in 24 hours after the procedure. Following Day: - Return to full activity which may include returning to work/school. Diet Start your diet with liquids and light foods (jello, soup, juice, toast). Then eat your usual diet if not nauseated. Treatment For Common After Affects For mild abdominal pain, bloating, or excessive gas: - Rest - Eat lightly - Lie on right side Follow-Up Information Follow-up with as scheduled Anesthesia Information What You Should Know You have had a procedure that required some medicine to reduce anxiety and discomfort. This treatment is called moderate sedation. After receiving the treatment, you may be sleepy, but you will be able to breathe on your own. The effects of the treatment may last for several hours. Follow these instructions along with Activity/Diet recommendations noted above: * Do NOT do anything where dizziness or clumsiness would be dangerous. * Rest quietly at home today, then you can be up and about tomorrow. * Have a responsible person stay with you the rest of today. * You may have had an I.V. today. If so, you may take the dressing off later today. Recommendations Call your doctor if: * Trouble breathing * Continuous vomiting for more than 24 hours * Temperature above 101 degrees * Severe abdominal pain or bloating * Pain not relieved by pain medicine ordered * There is increased drainage or redness from any incision * A large amount of rectal bleeding greater than 2-3 tablespoons. (If you had a polyp/s removed or have hemorrhoids, a small amount of blood - from the rectum is to be expected.) * You have any unanswered questions or concerns. IN THE EVENT OF A SERIOUS EMERGENCY, GO TO THE NEAREST EMERGENCY ROOM Your discharge instructions were prepared by provider Tono Joseph. Patient Instructions Signature Page Naty Harrison Patient (or Guardian) Signature/Date: I have read and understand the instructions given to me by my caregivers. Caregiver/RN/Doctor Signature/Date: The above-named patient and/or guardian has received patient instructions on this date. + Original Patient Signature Page (only) stays with chart. Please make copy for patient.
--- NOTE | 2017-04-13 12:02 | GI REPORT ---
Procedure Date: 04/13/2017 11:29 AM Procedure: Upper GI endoscopy Indications: Epigastric abdominal pain, Iron deficiency anemia Medicines: Midazolam 2 mg IV, Zofran 4 mg IV, Propofol total dose 100 mg IV, Lidocaine 60 mg IV Complications: No immediate complications. Estimated Blood Loss: Estimated blood loss: none. Procedure: Pre-Anesthesia Assessment: - Prior to the procedure, a History and Physical was performed, and patient medications, allergies and sensitivities were reviewed. The patient's tolerance of previous anesthesia was reviewed. - The risks and benefits of the procedure and the sedation options and risks were discussed with the patient. All questions were answered and informed consent was obtained. After obtaining informed consent, the endoscope was passed under direct vision. Throughout the procedure, the patient's blood pressure, pulse, and oxygen saturations were monitored continuously. The scope was introduced through the mouth, and advanced to the second part of duodenum. The upper GI endoscopy was accomplished without difficulty. The patient tolerated the procedure well. Findings: The examined esophagus was normal. The Z-line was regular and was found 41 cm from the incisors. One non-bleeding superficial gastric ulcer with no stigmata of bleeding was found on the greater curvature of the stomach. The lesion was 6 mm in largest dimension. Patchy moderately erythematous mucosa without active bleeding and with no stigmata of bleeding was found in the duodenal bulb. Impression: - Normal esophagus. - Z-line regular, 41 cm from the incisors. - Non-bleeding gastric ulcer with no stigmata of bleeding. - Erythematous duodenopathy. - No specimens collected. Recommendation: - [facility]. - Continue present medications. Tono Joseph M.D. Tono Joseph MD 04/13/2017 12:02:03 PM This report has been signed electronically. Note Initiated On: 04/13/2017 11:29 AM I attest to the content of the Intraoperative Record and orders documented therein, exceptions below
--- NOTE | 2017-04-13 12:19 | PROGRESS NOTE ---
DATE: 04/13/2017 DATE: 04/13/2017 The patient presents to the endoscopy center today for EGD regarding her epigastric pain and anemia. She underwent an EGD which showed normal esophagus in her stomach. She had a 6 mm gastric ulcer along the greater curve. There was no stigmata of bleeding. The duodenal bulb showed signs of erythema consistent with duodenitis. The remaining duodenum was normal. IMPRESSION: The patient has gastric ulcer. The patient is already on Protonix and H. pylori in the stool has been ordered.
--- NOTE | 2017-04-13 12:28 | Anesthesiology Progress Note ---
Anesthesia Post Op Note Date & Time Apr 13, 2017 at 12:28 Vital Signs Pain Intensity: 7 Vital Signs Past 12 Hours Date Time Temp Pulse Resp B/P (MAP) Pulse Ox O2 Delivery O2 Flow Rate FiO2 04/13/17 12:09 80 16 115/83 (94) 97 Room Air 04/13/17 11:53 89 16 111/74 (86) 98 Room Air 04/13/17 11:03 86 18 135/95 (108) 97 04/13/17 08:00 98 Room Air 04/13/17 07:53 36.7 90 20 130/89 (103) 98 Room Air Notes Mental Status: alert / awake / arousable, participated in evaluation Pt Amnestic to Procedure: Yes Nausea / Vomiting: adequately controlled Pain: adequately controlled Airway Patency, RR, SpO2: stable & adequate BP & HR: stable & adequate Hydration State: stable & adequate Anesthetic Complications: no major complications apparent
[2017-04-13 15:30] VITALS: BP 134/99; PULSE 83; TEMP 36.6; O2SAT 100
[2017-04-13] MEDS ORDERED: TRAM-10 PO (17:51)
[2017-04-13] MEDS ORDERED: HYDR-3419 PO (17:51)
--- NOTE | 2017-04-13 17:52 | Discharge Instructions ---
Discharge Instructions Date of Service Apr 13, 2017. Admission Reason for Admission: Gastroenteritis, Hypomagnesemia Discharge Discharge Diagnosis / Problem: Gastric Ulcer/ low magnesium, low potassium Discharge Goals Goal(s): Decrease discomfort, Improve function Activity Recommendations Activity Limitations: resume your previous activity . Instructions / Follow-Up Instructions / Follow-Up Followup with PCP in 1 or 2 weeks Current Hospital Diet Patient's current hospital diet: Clear Liquid Diet Discharge Diet Recommended Diet: Full Liquid Diet Procedures Procedures Performed: EGD Pending Studies Studies pending at discharge: no Laboratory Results Hemoglobin A1c Test 04/12/17 06:50 Range/Units Estimated Average Glucose 68 mg/dl Hemoglobin A1c 4.0 L 4.5-5.6 % Lipid Panel Test 04/12/17 06:50 Range/Units Triglycerides Level 99 0-150 mg/dl Cholesterol Level 181 0-200 mg/dl HDL Cholesterol 100 mg/dl Cholesterol/HDL Ratio 1.8 LDL Cholesterol, Calculated 61 mg/dl Medical Emergencies . Who to Call and When: Medical Emergencies: If at any time you feel your situation is an emergency, please call 911 immediately. . Non-Emergent Contact Non-Emergency issues call your: Primary Care Provider Call Non-Emergent contact if: you have any medication questions . . "Provider Documentation" section prepared by Kevon Mitchell. . VTE Core Measure Inpt VTE Proph given/why not?: Treatment not indicated (short hospital stay, patient ambulating)
[2017-04-13 18:07] VITALS: BP 134/99; PULSE 83; TEMP 36.6; O2SAT 100
--- NOTE | 2017-04-20 18:33 | Discharge Summary ---
Discharge Summary Date of Service Apr 13, 2017. Discharge Summary Admission Date: Apr 11, 2017 Discharge Date: Apr 13, 2017 Discharge Disposition: Home Principal Diagnosis: Severe electrolyte abnormalities Problems/Secondary Diagnoses: C. Diff colonization Immunizations: Have You Had Influenza Vaccine: No History of Tetanus Vaccine?: Yes History of Pneumococcal: No History of Hepatitis B Vaccine: No Hepatitis Immunization Date: [birth year] 06, 1990 Procedures: DICTATED BY: Tono Joseph M.D. Procedure Date: 04/13/2017 11:29 AM Procedure: Upper GI endoscopy Indications: Epigastric abdominal pain, Iron deficiency anemia Medicines: Midazolam 2 mg IV, Zofran 4 mg IV, Propofol total dose 100 mg IV, Lidocaine 60 mg IV Complications: No immediate complications. Estimated Blood Loss: Estimated blood loss: none. Procedure: Pre-Anesthesia Assessment: - Prior to the procedure, a History and Physical was performed, and patient medications, allergies and sensitivities were reviewed. The patient's tolerance of previous anesthesia was reviewed. - The risks and benefits of the procedure and the sedation options and risks were discussed with the patient. All questions were answered and informed consent was obtained. After obtaining informed consent, the endoscope was passed under direct vision. Throughout the procedure, the patient's blood pressure, pulse, and oxygen saturations were monitored continuously. The scope was introduced through the mouth, and advanced to the second part of duodenum. The upper GI endoscopy was accomplished without difficulty. The patient tolerated the procedure well. Findings: The examined esophagus was normal. The Z-line was regular and was found 41 cm from the incisors. One non-bleeding superficial gastric ulcer with no stigmata of bleeding was found on the greater curvature of the stomach. The lesion was 6 mm in largest dimension. Patchy moderately erythematous mucosa without active bleeding and with no stigmata of bleeding was found in the duodenal bulb. Impression: - Normal esophagus. - Z-line regular, 41 cm from the incisors. - Non-bleeding gastric ulcer with no stigmata of bleeding. - Erythematous duodenopathy. - No specimens collected. Recommendation: - [facility]. - Continue present medications. Tono Joseph M.D. Tono Joseph MD Medication Reconciliation New Medications: Tramadol (Ultram) 50 Mg Tab 1 TAB PO TID PRN for moderate pain for 14 Days, #45 TAB Continued Medications: Ipratropium-Albuterol (Combivent Respimat) 1 Aer Aer 1 PUFF PO QID Losartan Potassium (Losartan Potassium) 50 Mg Tab 50 MG PO DAILY Pantoprazole (Protonix) 40 Mg Tab 40 MG PO DAILY Discharge Exam Review of Systems: Constitutional: No fever, No chills Respiratory: No cough, No sputum Cardiovascular: No chest pain, No orthopnea Abdomen: No pain, No nausea Musculoskeletal: No joint pain Neurologic: No memory loss, No paralysis Psychiatric: No depression symptoms, No anhedonism Endocrine: No fatigue, No excessive thirst Hematologic / Lymphatic: No abnormal bleeding/bruising, No clotting problems Integumentary: No rash, No itch Physical Exam: General Appearance: WD/WN, no apparent distress Neck: supple, no adenopathy Respiratory/Chest: chest non-tender, lungs clear, normal breath sounds Cardiovascular: regular rate, rhythm, no edema Abdomen / GI: normal bowel sounds, non tender, soft Extremities: normal inspection, no calf tenderness Skin: normal color, warm/dry Lymphatic: no adenopathy Hospital Course This is a 52 yo F with PMHx of Asthma, HTN, anxiety, c. diff colitis, alcohol abuse, tobacco abuse, who presents with 1 week of nausea, vomiting and diarrhea. Severe abdominal pain Unsure if patient is malingering. However, this may be from alcoholic gastritis. Px did improve with IV H2 blockers. Upper endoscopy findings noted above. Recommended against alcohol use, patient was counselled on this Colitis - CT abd/pelvis showing colonic thickening in the left colon Patient is asymptomatic. -Normal BOWEL MOVEMENT -C. Diff was positive, but she is not having active symptoms. likely a colonization. - Antiemetics for nausea ordered, pantoprazole for GI ppx with hx of etoh use - Pt reports last drink was over 1 week ago Hypokalemia Severe hypomagnesemia Likely from alcohol use - Pt with multiple electrolyte abnormalities - Replaced via IV and PO in the ER - Will place on NSS + Kcl 20 meq at 125 for next day -This resolved by day 3 of hospital stay Elevated Transaminase Severe hepatic steatosis - Stable 15 mm lesion within the right hepatic lobe. There is an equivocal 3. Stable submucosal fat hypertrophy within the colon - Etoh cessation encouraged - Total bili elevated at 1.9, direct = 0.8, AST= 113, Alk phos 234, -- follow with am LFTs ETOH use - start MVI, folic acid, thiamine daily while here in the hospital Asthma - Continue home combivent inhaler, duonebs prn - stable HTN - Cont losartan for now, BP elevated > 160 DVT ppx: ambulatory, teds, scds Total Time Spent: Greater than 30 minutes This includes examination of the patient, discharge planning, medication reconciliation, and communication with other providers. Discharge Instructions Please refer to the electronic Patient Visit Report (Discharge Instructions) for additional information. Follow-Up F.U with PCP as discharge instructions
== END 2017-04-13 18:15 | disposition home or self-care (01) | DRG 373 ==
LOC: C.EDB 06:38 → C.MS2W 09:03 → ENRESERV 09:57 → OBSVTOIN 04-12 08:23
PROVIDERS: ADMIT Internal Medicine Sports Medicine; ATTEND Internal Medicine Sports Medicine
PROC: 0DJ08ZZ Inspection of Upper Intestinal Tract, Via Natural or Artificial Opening Endoscopic (ICD-10-PCS; principal; 2017-04-13 10:57)
DX: A04.72 Enterocolitis due to Clostridium difficile, not specified as recurrent (principal); E87.6 Hypokalemia; E83.42 Hypomagnesemia; D50.9 Iron deficiency anemia, unspecified; K25.9 Gastric ulcer, unspecified as acute or chronic, without hemorrhage or perforation; I10 Essential (primary) hypertension; E03.9 Hypothyroidism, unspecified; F41.9 Anxiety disorder, unspecified; K76.0 Fatty (change of) liver, not elsewhere classified; J45.909 Unspecified asthma, uncomplicated; F17.210 Nicotine dependence, cigarettes, uncomplicated; Z79.899 Other long term (current) drug therapy; Z91.041 Radiographic dye allergy status; Z88.0 Allergy status to penicillin; Z88.2 Allergy status to sulfonamides

== ENCOUNTER 2017-05-07 06:40 | Inpatient (IN) | payer OTHER ==
[~2017-05-07] VITALS: Ht 172.7 cm; Wt 70.4 kg
[2017-05-07] VITALS (7 sets, daily range): BP systolic 114–135; BP diastolic 77–88; PULSE 85–99; TEMP 36.8–37.3; O2SAT 95–100; Ht 172.7 cm; Wt 70.4 kg
[~2017-05-07 06:40] MED LIST changes: -CHLO25CA10 PO; -EFFSR75 PO; -FLV1 PO; -LPR25 PO; -MULT-589 PO; +PANT1TAB3 PO; -RANI150T3 PO; -THM100 PO; -ULT50X PO; -VANC1CAP19 PO; -ZNCS220 PO
[2017-05-07] MEDS ORDERED: SODIUM CHLORIDE 0.9% 1000ML 1,000 ML IV STA (07:02)
--- NOTE | 2017-05-07 07:07 | EMERGENCY ROOM VISIT NOTE ---
History Report prepared by Octavia: Graeme Booth Under the Supervision of: Dr. Riddhi Clements M.D. First contact with patient: 06:54 Chief Complaint: ABDOMINAL PAIN Stated Complaint: SEVERE PAIN IN HEAD,ALSO HAS C-DIFF History of Present Illness The patient is a 52 year old female who presents to the Emergency Room with complaints of worsening abdominal pain that started a few months ago. She states that the abdominal pain has become severe a couple days ago. The patient notes that she has had C. difficile since September, and has been unable to get rid of it. She says that she has been having diarrhea with mucous, and has to wear a diaper. She adds that she has been having episodes of vomiting. The patient was hospitalized here in March, and was not treated for the C. difficile because she was not showing symptoms of it at that time. She notes that she has a history of excessive alcohol use, but states that she is not doing that anymore. The patient says that she smokes 2 cigarettes per day. She denies any fevers or hematochezia. Source of History: patient Onset: A few months ago Position: abdomen Symptom Intensity: severe Quality: other (has C. difficile) Timing: worsening Associated Symptoms: + vomiting, + diarrhea, No fevers, No hematochezia Note: No other associated symptoms noted. Review of Systems See HPI for pertinent positives & negatives. A total of 10 systems reviewed and were otherwise negative. Past Medical & Surgical Medical Problems: (1) Alcohol Abuse-Unspec (2) Anxiety (3) Anxiety State Nos (4) Asthma, Unspecified (5) C. difficile colitis (6) Calculus Of Ureter (7) Diverticulosis Colon (W/O Ment Of Hemorrhage) (8) Facial cellulitis (9) Gastroenteritis (10) Hypokalemia (11) Hypothyroidism Nos (12) Lumbago (13) Migraine Unspecified W/O Intract Mgrn W/O Status Migrainosus (14) Pancreatitis, acute (15) Severe alcohol use disorder Surgical Problems: (1) History of cholecystectomy (2) Hx of appendectomy Family History No significant family history Social History Smoking Status: Current Every Day Smoker Alcohol Use: other Drug Use: none Marital Status: single Occupation Status: employed Current/Historical Medications Scheduled Ipratropium-Albuterol (Combivent Respimat), 1 PUFF PO QID Losartan Potassium (Losartan Potassium), 50 MG PO DAILY Pantoprazole (Protonix), 40 MG PO DAILY Allergies Coded Allergies: Penicillins (Verified Allergy, Intermediate, RASH/HIVES, 05/07/17) Sulfa Antibiotics (Verified Allergy, Intermediate, HIVES, 05/07/17) Codeine (Verified Allergy, Unknown, 05/07/17) Indomethacin (Verified Allergy, Unknown, 05/07/17) Iodine (Verified Allergy, Unknown, 05/07/17) Caldwell (Verified Allergy, Unknown, 05/07/17) Physical Exam Vital Signs Date Time Temp Pulse Resp B/P (MAP) Pulse Ox O2 Delivery O2 Flow Rate FiO2 05/07/17 11:09 94 15 137/93 100 Room Air 05/07/17 10:52 98 Room Air 05/07/17 10:00 89 20 141/102 98 Room Air 05/07/17 09:52 86 14 130/98 100 05/07/17 09:00 91 20 147/99 100 Room Air 05/07/17 08:30 82 20 145/99 98 Room Air 05/07/17 08:13 89 16 138/99 100 Room Air 05/07/17 08:11 100 Room Air 05/07/17 07:41 92 14 155/101 100 Room Air 05/07/17 07:37 90 05/07/17 07:15 100 Room Air 05/07/17 06:43 37.2 120 20 140/91 98 Room Air Physical Exam Vital signs reviewed. General: Disheveled 52 year old female, in no significant distress. HEENT: No scleral icterus, PERRLA, neck supple. Atraumatic. Cardiovascular: Regular rate and rhythm, no extra sounds. Pulmonary: Clear to auscultation bilaterally, normal work of breathing. Abdomen: Slightly distended abdomen, tender to palpation diffusely. Epigastric tenderness, and tenderness to the right upper quadrant. Soft, positive bowel sounds. Musculoskeletal: Atraumatic, no peripheral edema. Neurologic: Patient awake alert and oriented x 3 Skin: Warm, dry, no rash Medical Decision & Procedures ER Provider Diagnostic Interpretation: Radiology results as stated below per my review and radiologist interpretation: ABDOMEN 2VIEW W/PA CHEST RTN HISTORY: 52 years-old Female diarrhea, vomiting acute vomiting and diarrhea COMPARISON: Acute abdominal series radiographs and CT abdomen and pelvis 04/11/2017 TECHNIQUE: PA view of the chest with erect and supine views of the abdomen FINDINGS: Cardiomediastinal and hilar silhouettes are within normal limits. No pneumothorax, pleural effusion, focal airspace consolidation or overt pulmonary edema. Multiple bilateral calcified granulomas. Bones of the chest appear grossly intact. Bowel gas pattern is nonobstructive. There are a few air-fluid levels noted within small bowel the central and lower abdomen. Cholecystectomy clips are noted. No definite urolith. Calcifications of the pelvis suggest phleboliths. IMPRESSION: 1. Nonobstructive bowel gas pattern. 2. Air-fluid levels within nondilated bowel of the central and lower abdomen suggest enteritis or ileus. 3. No acute cardiopulmonary process. The above report was generated using voice recognition software. It may contain grammatical, syntax or spelling errors. Electronically signed by: Nicolas Song M.D. 05/07/2017 8:13 AM Dictated Date/Time: 05/07/2017 8:11 AM BILIARY ABDOMEN LIMITED CLINICAL HISTORY: s/p justa, elevated bili, LFTs rentained stone? Pain. Nausea. TECHNIQUE: Ultrasound COMPARISON STUDY: 09/21/2016 FINDINGS: Unchanging diffuse fatty infiltration of liver. Prior cholecystectomy. Common bile duct 10 mm the prominence of the common bile duct is perhaps slightly increased in the prior exam. Correlation is made with a potential obstructive hepatic enzymes. If positive, an MRCP is suggested. Right kidney is unremarkable. No evidence for hydronephrosis. Pancreas is poorly seen. IMPRESSION: 1. Mild increase in diameter of the extra hepatic common bile duct currently at 10 mm increased from 7 mm. 2. MRCP is suggested as follow-up if clinically indicated. 3. Negative right kidney. 4. Poor visibility of the pancreas due to overlying bowel content. The above report was generated using voice recognition software. It may contain grammatical, syntax or spelling errors. Electronically signed by: Bart Kay M.D. 05/07/2017 10:02 AM Dictated Date/Time: 05/07/2017 9:59 AM Laboratory Results Test 05/07/17 07:15 05/07/17 07:25 Immature Granulocyte % (Auto) 0.9 % White Blood Count 4.65 K/uL (4.8-10.8) Red Blood Count 2.78 M/uL (4.2-5.4) Hemoglobin 10.4 g/dL (12.0-16.0) Hematocrit 30.7 % (37-47) Mean Corpuscular Volume 110.4 fL (80-100) Mean Corpuscular Hemoglobin 37.4 pg (25-34) Mean Corpuscular Hemoglobin Concent 33.9 g/dl (32-36) Platelet Count 146 K/uL (130-400) Mean Platelet Volume 10.2 fL (7.4-10.4) Neutrophils (%) (Auto) 63.6 % Lymphocytes (%) (Auto) 23.0 % Monocytes (%) (Auto) 10.3 % Eosinophils (%) (Auto) 1.3 % Basophils (%) (Auto) 0.9 % Neutrophils # (Auto) 2.96 K/uL (1.4-6.5) Lymphocytes # (Auto) 1.07 K/uL (1.2-3.4) Monocytes # (Auto) 0.48 K/uL (0.11-0.59) Eosinophils # (Auto) 0.06 K/uL (0-0.5) Basophils # (Auto) 0.04 K/uL (0-0.2) Immature Granulocyte # (Auto) 0.04 K/uL (0.00-0.02) Basophilic Stippling 1+ Macrocytosis PRESENT Stomatocytes 1+ Prothrombin Time 12.0 SECONDS (9.0-12.0) Prothromb Time International Ratio 1.1 (0.9-1.1) Activated Partial Thromboplast Time 24.9 SECONDS (21.0-31.0) Partial Thromboplastin Ratio 1.0 Direct Bilirubin 3.9 mg/dl (0-0.2) Ethyl Alcohol mg/dL < 3.0 mg/dl (0-3) Laboratory results per my review. Medications Administered Medications (Trade) Dose Ordered Sig/Razia Route Start Time Stop Time Status Last Admin Dose Admin Sodium Chloride 1,000 ml @ 999 mls/hr Q1H1M STAT IV 05/07/17 07:02 05/07/17 08:02 DC 05/07/17 07:15 999 MLS/HR Acetaminophen 100 ml @ 400 mls/hr NOW STAT IV 05/07/17 07:20 05/07/17 07:34 DC 05/07/17 07:40 400 MLS/HR Ondansetron HCl (Zofran Inj) 4 mg NOW STAT IV 05/07/17 07:20 05/07/17 07:23 DC 05/07/17 07:40 4 MG Magnesium Sulfate (Magnesium Sulfate) 2 gm NOW STAT IV 05/07/17 08:04 05/07/17 08:05 DC 05/07/17 08:12 2 GM Potassium Chloride (Klor-Con M10) 40 meq NOW STAT PO 05/07/17 08:38 05/07/17 08:39 DC 05/07/17 08:48 40 MEQ Potassium Chloride 10 meq/ Prmx 100 ml @ 100 mls/hr Q1H IV 05/07/17 08:38 05/07/17 10:37 DC 05/07/17 09:38 100 MLS/HR Morphine Sulfate (MoRPHine SULFATE INJ) 2 mg NOW STAT IV 05/07/17 10:45 05/07/17 10:46 DC 05/07/17 11:09 2 MG Thiamine HCl 200 mg/Sodium Chloride 52 ml @ 210 mls/hr NOW STAT IV 05/07/17 10:49 05/07/17 11:03 DC 05/07/17 12:31 210 MLS/HR Ondansetron HCl (Zofran Inj) 4 mg Q6H PRN IV 05/07/17 11:15 06/06/17 11:14 05/07/17 12:06 4 MG Lorazepam (Ativan Tab) 1 mg ONE PRN PO 05/07/17 11:15 05/08/17 05:35 DC 05/08/17 05:34 1 MG Lorazepam (Ativan Inj) 1 mg ONE PRN IV 05/07/17 11:15 05/07/17 14:02 DC 05/07/17 14:01 1 MG ED Course 0700: Past medical records reviewed. The patient was evaluated in room A3. A complete history and physical examination was performed. 0702: Ordered NSS 1000 ml @ 999 mls/hr IV. 0720: Ordered Zofran Inj 4 mg IV. 0804: Ordered Magnesium Sulfate 2 gm IV. 0838: Ordered Potassium Chloride 10 meq/Prmx 100 ml @ 100 mls/hr IV, Klor-Con M10 40 meq PO. 1034: I reviewed the patient's case with Dr. Soares - [facility] [place] comic illustrator. He will evaluate the patient for further management. 1042: Upon reevaluation, the patient is resting comfortably. I discussed laboratory and radiographic results with her. She verbalized agreement of the treatment plan. The patient will be evaluated for further management and care. Medical Decision Differential diagnosis: Etiologies such as appendicitis, diverticulitis, PUD, biliary pathology, UTI, pancreatitis, obstruction, mesenteric ischemia, aortic pathology, infections, inflammatory bowel disease, renal colic, as well as others were entertained. This patient was evaluated and appeared to be in some discomfort. IV access was obtained and laboratory work was drawn. The patient was placed on the court monitor and found to be in a normal sinus rhythm. She was hydrated with normal saline solution. Abdominal x-ray series reveals no evidence of obstruction or free air, there is evidence of enteritis. Patient's stool is positive for C. difficile, which has been an issue for her in the past and has been called colonization. Patient was given IV magnesium 2 g for a severely depleted magnesium level. She was given 40 mEq of oral potassium as well as 20 mEq of IV potassium. Patient's liver enzymes are elevated however the ultrasound of the right upper quadrant is not convincing for obstruction. There is dilation of common bile duct more significant than previous results. The patient's case was discussed with the hospitalist service. They will evaluate the patient for further management. She will likely require MRCP for definitive diagnosis. She is aware of the plan and agrees. Medication Reconcilliation Current Medication List: was personally reviewed by me Blood Pressure Screening Patient's blood pressure: Elevated blood pressure Referred to hospitalist. Consults Time Called: 1030 Consulting Physician: Dr. Rodger REGALADO comic illustrator Returned Call: [phone] I reviewed the patient's case with Dr. Rodger REGALADO comic illustrator. He will evaluate the patient for further management. Impression Primary Impression: Biliary obstruction Scribe Attestation The scribe's documentation has been prepared under my direction and personally reviewed by me in its entirety. I confirm that the note above accurately reflects all work, treatment, procedures, and medical decision making performed by me. Departure Information Dispostion Being Evaluated By Hospitalist Referrals Jeb Burgess MD (PCP) Patient Instructions My [facility]
[2017-05-07] MEDS ORDERED: ONDANSETRON INJ 2 MG/ML 2 ML VIAL IV STA (07:20)
[2017-05-07] MEDS ORDERED: ACETAMINOPHEN IV 100 ML IV STA (07:20)
[2017-05-07 07:38] LABS: BASO % 0.9 %; BASO ABS # 0.04 K/uL (0-0.2); EOS % 1.3 %; EOS ABS # 0.06 K/uL (0-0.5); HEMATOCRIT 30.7 % (37-47); HEMOGLOBIN 10.4 g/dL (12.0-16.0); IG# 0.04 K/uL (0.00-0.02); LYMPH ABS # 1.07 K/uL (1.2-3.4); MEAN CELL VOLUME 110.4 fL (80-100); MEAN CORPUSCULAR HEMOGLOBIN 37.4 pg (25-34); MEAN CORPUSCULAR HGB CONC 33.9 g/dl (32-36); MEAN PLATELET VOLUME 10.2 fL (7.4-10.4); MONO % 10.3 %; MONO ABS # 0.48 K/uL (0.11-0.59); NEUT % 63.6 %; NEUT ABS # 2.96 K/uL (1.4-6.5); NUCLEATED RED BLOOD CELL ABS 0.03 K/uL (0-0); PLATELET COUNT 146 K/uL (130-400); RED CELL DISTRIBUTION WIDTH CV 17.9 % (11.5-14.5); RED CELL DISTRIBUTION WIDTH SD 71.5 fL (36.4-46.3); WHITE BLOOD COUNT 4.65 K/uL (4.8-10.8)
[2017-05-07 08:02] LABS: POTASSIUM 2.7 mmol/L (3.5-5.1)
[2017-05-07 08:04] LABS: ALBUMIN 2.9 gm/dl (3.4-5.0); ALKALINE PHOSPHATASE 356 U/L (45-117); ALT/SGPT 60 U/L (12-78); BLOOD UREA NITROGEN 9 mg/dl (7-18); CALCIUM 7.2 mg/dl (8.5-10.1); CARBON DIOXIDE 25 mmol/L (21-32); CREATININE 0.82 mg/dl (0.60-1.20); GLUCOSE 107 mg/dl (70-99); LIPASE 113 U/L (73-393); SODIUM 135 mmol/L (136-145); TOTAL PROTEIN 6.7 gm/dl (6.4-8.2)
[2017-05-07] MEDS ORDERED: MAGNESIUM SULFATE 1GM / D5W 1 GM BAG IV STA (08:04)
[2017-05-07 08:10] LABS: AST/SGOT 254 U/L (15-37)
--- NOTE | 2017-05-07 08:15 | DIAGNOSTIC IMAGING REPORT ---
ABDOMEN 2VIEW W/PA CHEST RTN HISTORY: 52 years-old Female diarrhea, vomiting acute vomiting and diarrhea COMPARISON: Acute abdominal series radiographs and CT abdomen and pelvis 04/11/2017 TECHNIQUE: PA view of the chest with erect and supine views of the abdomen FINDINGS: Cardiomediastinal and hilar silhouettes are within normal limits. No pneumothorax, pleural effusion, focal airspace consolidation or overt pulmonary edema. Multiple bilateral calcified granulomas. Bones of the chest appear grossly intact. Bowel gas pattern is nonobstructive. There are a few air-fluid levels noted within small bowel the central and lower abdomen. Cholecystectomy clips are noted. No definite urolith. Calcifications of the pelvis suggest phleboliths. IMPRESSION: 1. Nonobstructive bowel gas pattern. 2. Air-fluid levels within nondilated bowel of the central and lower abdomen suggest enteritis or ileus. 3. No acute cardiopulmonary process. The above report was generated using voice recognition software. It may contain grammatical, syntax or spelling errors. Electronically signed by: Nicolas Song M.D. 05/07/2017 8:13 AM Dictated Date/Time: 05/07/2017 8:11 AM
[2017-05-07] MEDS ORDERED: POTASSIUM CHLORIDE 10 MEQ / 100ML WTR IV STA (08:38)
[2017-05-07] MEDS ORDERED: POTASSIUM CHLORIDE 10 MEQ TABCR PO STA (08:38)
[2017-05-07] MEDS: POTASSIUM CHLR 10MEQ / WTR IV SCH ×2 (09:38→09:56)
--- NOTE | 2017-05-07 10:03 | DIAGNOSTIC IMAGING REPORT ---
BILIARY ABDOMEN LIMITED CLINICAL HISTORY: s/p justa, elevated bili, LFTs rentained stone? Pain. Nausea. TECHNIQUE: Ultrasound COMPARISON STUDY: 09/21/2016 FINDINGS: Unchanging diffuse fatty infiltration of liver. Prior cholecystectomy. Common bile duct 10 mm the prominence of the common bile duct is perhaps slightly increased in the prior exam. Correlation is made with a potential obstructive hepatic enzymes. If positive, an MRCP is suggested. Right kidney is unremarkable. No evidence for hydronephrosis. Pancreas is poorly seen. IMPRESSION: 1. Mild increase in diameter of the extra hepatic common bile duct currently at 10 mm increased from 7 mm. 2. MRCP is suggested as follow-up if clinically indicated. 3. Negative right kidney. 4. Poor visibility of the pancreas due to overlying bowel content. The above report was generated using voice recognition software. It may contain grammatical, syntax or spelling errors. Electronically signed by: Bart Kay M.D. 05/07/2017 10:02 AM Dictated Date/Time: 05/07/2017 9:59 AM
[2017-05-07] MEDS ORDERED: THIAMINE HCL 100 MG/ML 2 ML VIAL IV STA (10:42)
[2017-05-07] MEDS ORDERED: MoRPHine SULFATE 2 MG/ML CARP IV STA (10:45)
[2017-05-07] MEDS ORDERED: THIAMINE HCL INJ 200 MG in NSS 50ML IV STA (10:49)
[2017-05-07] MEDS ORDERED: RANITIDINE IV 50 MG in DEXTROSE 5% 100ML 100 ML IV SCH (11:15)
[2017-05-07] MEDS ORDERED: LORAZEPAM 2 MG/ML 1 ML VIAL IV PRN (11:15)
[2017-05-07] MEDS ORDERED: LORAZEPAM 1 MG TAB PO PRN (11:15)
[2017-05-07] MEDS ORDERED: ONDANSETRON INJ 2 MG/ML 2 ML VIAL IV PRN (11:15)
[2017-05-07] MEDS ORDERED: GABAPENTIN 600 MG TAB PO SCH (11:15)
[2017-05-07 11:47] LABS: INR 1.1 (0.9-1.1); PTT PATIENT 24.9 SECONDS (21.0-31.0)
--- NOTE | 2017-05-07 11:51 | History and Physical ---
History & Physical Date & Time of Service: May 07, 2017 at 10:41 Chief Complaint: Severe Pain In Head,Also Has C-Diff Primary Care Physician: Jeb Burgess MD History of Present Illness Source: patient, hospital records 52yo female with history of c. diff colitis in 09/2016 and hospital admission for abdominal pain in 03/2017 - found to have nonbleeding gastric ulcer - along with heavy alcohol abuse who presents with abdominal pain x 5 days, vomiting x 5 days, and acute/chronic diarrhea. The acute worsening of her diarrhea started 2 days ago. Having 10-12+ liquid, yellow, mucous-filled stools/day. Wearing Depends due to fecal incontinence. No BRBPR. She reports that on a chronic basis she has fluctuating stool calibre (goes between normally formed stool to liquid stool) but it has been much worse in the last 48 hours. Symptoms remind her of the c. diff back in September 2016. The abdominal pain is "all over" but she points to the epigastric region and LLQ as the worst locations. Has not been able to eat/drink in the last several days due to her pain, emesis , and diarrhea. In terms of her drinking she reported twice during the encounter that her last drink was around 2016. She is smoking less than 1/4 pack of cigarettes/day. In the ER her c diff toxin was +. She received IV mag, IV K, and morphine for her low mag/K and her abdominal pain. Past Medical/Surgical History PMH/PSH: 1. alcoholism 2. macrocytic anemia, either 2nd to folate deficiency or alcoholism 3. h/o hypokalemia 4. h/o hypomagnesemia - 5. hypertension 6. abnormal LFTs - likely 2nd to #1 7. severe fatty liver on prio imaging 8. anxiety disorder 9. folate deficiency 10. hypothyroidism 11. asthma 12. tobacco dependence 13. PUD - 03/2017 as seen on EGD 14. 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) Immunizations History of Influenza Vaccine: No History of Tetanus Vaccine?: Yes History of Pneumococcal: No History of Hepatitis B Vaccine: No Hepatitis Immunization Date: [birth year] 06, 1990 Multi-Drug Resistant Organisms History of MDRO: No Allergies Coded Allergies: Penicillins (Verified Allergy, Intermediate, RASH/HIVES, 05/07/17) Sulfa Antibiotics (Verified Allergy, Intermediate, HIVES, 05/07/17) Codeine (Verified Allergy, Unknown, 05/07/17) Indomethacin (Verified Allergy, Unknown, 05/07/17) Iodine (Verified Allergy, Unknown, 05/07/17) [place] (Verified Allergy, Unknown, 05/07/17) Home Medications Scheduled Ipratropium-Albuterol (Combivent Respimat), 1 PUFF PO QID Losartan Potassium (Losartan Potassium), 50 MG PO DAILY Pantoprazole (Protonix), 40 MG PO DAILY Review of Systems Constitutional: + chills, + weakness, + fatigue, No fever, No weight loss Eyes: No worsening of vision ENT: No nasal symptoms, No sore throat, No trouble swallowing Respiratory: No cough, No sputum, No wheezing, No shortness of breath Cardiovascular: No chest pain, No orthopnea, No edema Abdomen: + pain, + nausea, + vomiting, + diarrhea, No constipation, No GI bleeding Musculoskeletal: No joint pain, No muscle pain Genitourinary - Female: No dysuria, No hematuria Neurologic: + weakness, No numbness/tingling Psychiatric: No depression symptoms Endocrine: + fatigue Hematologic / Lymphatic: No abnormal bleeding/bruising Integumentary: No rash Physical Exam Vital Signs Date Time Temp Pulse Resp B/P (MAP) Pulse Ox O2 Delivery O2 Flow Rate FiO2 05/07/17 10:00 89 20 141/102 98 Room Air 05/07/17 09:52 86 14 130/98 100 05/07/17 09:00 91 20 147/99 100 Room Air 05/07/17 08:30 82 20 145/99 98 Room Air 05/07/17 08:13 89 16 138/99 100 Room Air 05/07/17 08:11 100 Room Air 05/07/17 07:41 92 14 155/101 100 Room Air 05/07/17 07:37 90 05/07/17 07:15 100 Room Air 05/07/17 06:43 37.2 120 20 140/91 98 Room Air General Appearance: + mild distress (due to abdominal pain ), + pertinent finding (appears mildly shaky/tremulousness but a/o x 3 ) Head: normocephalic, atraumatic Eyes: PERRL, + abnormal sclerae exam (icterus b/l) ENT: + pertinent finding (MM dry, no lesions) Neck: supple, no adenopathy, thyroid normal, no JVD, + pertinent finding ( prominent fat pads over both supraclavicular areas) Respiratory/Chest: lungs clear, normal breath sounds, no respiratory distress, no accessory muscle use Cardiovascular: regular rate, rhythm, no gallop, no murmur, normal peripheral pulses Abdomen/GI: normal bowel sounds, + tenderness (RUQ, epigastric region, and LLQ (scantly over RLQ as well)), + hepatomegaly (3-4cm below costal margin), + splenomegaly Back: normal inspection Extremities/Musculoskelatal: no pedal edema Neurologic/Psych: alert, oriented x 3, + abnormal reflexes (slightly brisk b/l) , + pertinent finding (strength 5/5 x 4 exts) Skin: no rash, + pertinent finding (severe clubbing of all fingernails) Diagnostics Laboratory Results Results Past 24 Hours Test 05/07/17 07:15 05/07/17 07:25 Range/Units White Blood Count 4.65 4.8-10.8 K/uL Red Blood Count 2.78 4.2-5.4 M/uL Hemoglobin 10.4 12.0-16.0 g/dL Hematocrit 30.7 37-47 % Mean Corpuscular Volume 110.4 80-100 fL Mean Corpuscular Hemoglobin 37.4 25-34 pg Mean Corpuscular Hemoglobin Concent 33.9 32-36 g/dl Platelet Count 146 130-400 K/uL Mean Platelet Volume 10.2 7.4-10.4 fL Neutrophils (%) (Auto) 63.6 % Lymphocytes (%) (Auto) 23.0 % Monocytes (%) (Auto) 10.3 % Eosinophils (%) (Auto) 1.3 % Basophils (%) (Auto) 0.9 % Neutrophils # (Auto) 2.96 1.4-6.5 K/uL Lymphocytes # (Auto) 1.07 1.2-3.4 K/uL Monocytes # (Auto) 0.48 0.11-0.59 K/uL Eosinophils # (Auto) 0.06 0-0.5 K/uL Basophils # (Auto) 0.04 0-0.2 K/uL RDW Standard Deviation 71.5 36.4-46.3 fL RDW Coefficient of Variation 17.9 11.5-14.5 % Immature Granulocyte % (Auto) 0.9 % Immature Granulocyte # (Auto) 0.04 0.00-0.02 K/uL Nucleated RBC Absolute Count (auto) 0.03 0-0 K/uL Nucleated Red Blood Cells % 0.7 % Basophilic Stippling 1+ Macrocytosis PRESENT Stomatocytes 1+ Sodium Level 135 136-145 mmol/L Potassium Level 2.7 3.5-5.1 mmol/L Chloride Level 96 98-107 mmol/L Carbon Dioxide Level 25 21-32 mmol/L Anion Gap 15.0 3-11 mmol/L Blood Urea Nitrogen 9 7-18 mg/dl Creatinine 0.82 0.60-1.20 mg/dl Estimated GFR () 95.4 Estimated GFR (Non- 82.3 BUN/Creatinine Ratio 10.6 10-20 Random Glucose 107 70-99 mg/dl Calcium Level 7.2 8.5-10.1 mg/dl Magnesium Level 0.7 1.8-2.4 mg/dl Total Bilirubin 5.7 0.2-1 mg/dl Direct Bilirubin 3.9 0-0.2 mg/dl Aspartate Amino Transf (AST/SGOT) 254 15-37 U/L Alanine Aminotransferase (ALT/SGPT) 60 12-78 U/L Alkaline Phosphatase 356 45-117 U/L Total Protein 6.7 6.4-8.2 gm/dl Albumin 2.9 3.4-5.0 gm/dl Lipase 113 73-393 U/L Ethyl Alcohol mg/dL < 3.0 0-3 mg/dl Microbiology Results 05/07/17 Shiga Toxin Test, Received Pending 05/07/17 Stool Culture, Received Pending 05/07/17 C.difficile Toxin B Gene (PCR), Received Pending Diagnostic Radiology RUQ u/s: IMPRESSION: 1. Mild increase in diameter of the extra hepatic common bile duct currently at 10 mm increased from 7 mm. 2. MRCP is suggested as follow-up if clinically indicated. 3. Negative right kidney. 4. Poor visibility of the pancreas due to overlying bowel content. 3-way abdominal series: IMPRESSION: 1. Nonobstructive bowel gas pattern. 2. Air-fluid levels within nondilated bowel of the central and lower abdomen suggest enteritis or ileus. 3. No acute cardiopulmonary process. EKG pending Impression Assessment and Plan 52yo female with h/o alcohol dependence, fatty liver, prior admission for c. diff colitis 09/2016, recent hospital stay for abdominal pain possibly related to PUD (gastric ulcer), HTN, and asthma presenting with severe diarrhea, mod- severe abdominal pain, emesis, weakness, and multiple electrolyte abnormalities along with abnormal LFTs. 1. c. diff colitis - history and exam along with testing c/w c. diff colitis. Although she has had c. diff in the past it has been over 6 months since the last episode. Rx with vancomycin 125mg po q6h x 14 days and colestipol 1gm BID to help with severity/frequency of diarrhea (12+ times/day). IVF, replace lytes. Allow clear liquids for diet. 2. severe abdominal pain - may be multifactorial including the c. diff colitis , acute/chronic hepatitis, PUD, etc. Treat the c. diff. MRCP to exclude a CBD stone in the setting of prior lap justa. Place on IV H2 emma. Morphine prn. 3. acute/chronic abnormal LFTs - imaging shows severe fatty liver. Surprisingly her imaging does not show cirrhotic changes. All past LFTs have been high, but they are much worse today. I am concerned she may still be drinking alcohol. Check MRCP to exclude a CBD stone causing obstruction and a rise in her t. bili. Check INR NOW to exclude coagulopathy. Calculate the discriminant function once INR is available. Repeat LFTs in am. May need GI consultation for additional recommendations. Check an acute hepatitis profile. 4. severe hypokalemia - 2nd to diarrhea, poor oral intake, etc. Replace IV/PO and repeat level this afternoon and again in AM. 5. severe hypomagnesemia - 2nd to diarrhea, poor oral intake, +/- etoh. Replace IV, repeat level this afternoon and again in AM. Check EKG to look at QTc. 6. alcoholism - again all labs are concerning for ongoing use. Thus, place on alcohol withdrawal protocol with gabapentin + ativan prn. MVI, Thiamine, Folic Acid supplementation. 7. h/o folic acid def - IV folic acid while here. 8. pancytopenia - either 2nd to alcoholism, folic acid def, or liver disease - vs combination of factors. CBC in am. 9. DVT proph - lovenox 40mg daily. 10. HTN - continue losartan. 11. PUD - continue H2 emma. 12. asthma vs COPD - not active; continue outpatient combivent. 13. FEN - NS w/ KCl at 150cc/hr. Clear liquids. Replace K/mag. Repeat all lytes later today. 14. 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 Nicoderm patch 7mg/24 hr. will need PT, OT due to weakness place on telemetry full code Level of Care Telemetry Resuscitation Status FULL RESUSCITATION VTE Prophylaxis Risk Level: High Given or contraindicated: Enoxaparin (Lovenox)SQ Note total time 70 minutes Additional Copies To Jeb Burgess MD
[2017-05-07] MEDS: MAGNESIUM SULFATE 1GM / D5W 1 GM in PREMIXED IN D5W 100 ML IV SCH ×2 (12:45→14:02)
[2017-05-07] MEDS ORDERED: CEROVITE ADV FORMULA TAB PO ONE (12:45)
[2017-05-07] MEDS: NICOTINE 7 MG/24 HR TDSY TD SCH (12:45)
[2017-05-07] MEDS: NSS + 20MEQ KCL 1000ML 1,000 ML IV SCH ×2 (12:45→19:25)
[2017-05-07] MEDS ORDERED: FoLIC ACID INJ 1 MG in SYRINGE 9.8 ML IV ONE (13:00)
[2017-05-07] MEDS: FAMOTIDINE IV INJ 20 MG in SYRINGE 3 ML IV SCH ×2 (13:43→22:00)
[2017-05-07] MEDS: ENOXAPARIN 40 MG/0.4 ML SYR SC SCH (13:43)
[2017-05-07] MEDS: IPRATROPIUM BROMIDE/ALBUTEROL respimat INH INH SCH ×3 (13:44→22:01)
[2017-05-07] MEDS: RASPBERRY SYRUP 5 ML UDP PO SCH ×2 (13:47→22:00)
[2017-05-07] MEDS: COLESTIPOL HCL 1 GM TAB PO SCH ×2 (13:47→22:02)
[2017-05-07] MEDS: VANCOMYCIN HCL 125 MG/2.5ML SOLN PO SCH ×2 (13:48→22:00)
[2017-05-07] MEDS ORDERED: GABAPENTIN 1200MG LOADING DOSE PO ONE (14:00)
[2017-05-07 14:01] LABS: HEP C IGG 13 YRS+OLDER_RFLX NEG (NEG)
--- NOTE | 2017-05-07 16:50 | DIAGNOSTIC IMAGING REPORT ---
MRCP CLINICAL HISTORY: Right upper quadrant abdominal pain. Abnormal LFTs. History of laparoscopic cholecystectomy. COMPARISON STUDY: Biliary ultrasound dated 05/07/2017. FINDINGS: The gallbladder is surgically absent. The pancreatic duct is of normal caliber. The common bile duct measures 1 cm. No common bile duct filling defects are visualized. There is equivocal 2 mm filling defect within a left hepatic duct. This could be artifactual. There is equivocal mild pancreatic head and periduodenal edema. Clinical correlation in regards to pancreatitis is recommended IMPRESSION: 1. Surgically absent gallbladder 2. 1 cm common bile duct. No common bile duct filling defects identified 3. Equivocal 2 mm filling defect within the left lobe hepatic duct, possibly artifactual 4. No evidence of pancreatic ductal dilatation 5. Equivocal mild pancreatic head and periduodenal edema. Clinical correlation in regards to pancreatitis is recommended. Electronically signed by: Ramon Dominique M.D. 05/07/2017 4:49 PM Dictated Date/Time: 05/07/2017 4:43 PM
[2017-05-07 17:03] LABS: CALCIUM 6.6 mg/dl (8.5-10.1); CREATININE 0.6 mg/dl (0.60-1.20)
[2017-05-07 17:05] LABS: POTASSIUM 3.2 mmol/L (3.5-5.1)
[2017-05-07] MEDS: MoRPHine SULFATE 2 MG/ML CARP IV PRN ×2 (17:10→22:03)
[2017-05-07] MEDS ORDERED: MAGNESIUM SULFATE 1GM / D5W 1 GM in PREMIXED IN D5W 100 ML IV STA (17:47)
[2017-05-07] MEDS ORDERED: POTASSIUM CHLORIDE 20 MEQ TABCR PO SCH (21:00)
[2017-05-07] MEDS: POTASSIUM CHLORIDE 20 MEQ TABCR PO SCH (21:59)
[2017-05-07] MEDS: GABAPENTIN 600MG Q6H DOSE PO SCH (22:01)
[2017-05-07] MEDS: THIAMINE HCL INJ 200 MG in SODIUM CHLORIDE 0.9% 50ML 50 ML IV SCH (22:13)
[2017-05-08] VITALS (8 sets, daily range): BP systolic 102–141; BP diastolic 71–92; PULSE 83–104; TEMP 36.4–37.1; O2SAT 95–100
[2017-05-08] MEDS: VANCOMYCIN HCL 125 MG/2.5ML SOLN PO SCH ×4 (01:18→19:58)
[2017-05-08] MEDS: RASPBERRY SYRUP 5 ML UDP PO SCH ×4 (01:18→19:58)
[2017-05-08] MEDS: MoRPHine SULFATE 2 MG/ML CARP IV PRN ×3 (01:18→09:13)
[2017-05-08] MEDS: NSS + 20MEQ KCL 1000ML 1,000 ML IV SCH ×4 (02:36→20:59)
[2017-05-08] MEDS: GABAPENTIN 600MG Q6H DOSE PO SCH (05:34)
[2017-05-08 06:30] LABS: HEMATOCRIT 24.6 % (37-47); HEMOGLOBIN 8.1 g/dL (12.0-16.0); MEAN CELL VOLUME 114.4 fL (80-100); MEAN CORPUSCULAR HEMOGLOBIN 37.7 pg (25-34); MEAN CORPUSCULAR HGB CONC 32.9 g/dl (32-36); MEAN PLATELET VOLUME 9.8 fL (7.4-10.4); NUCLEATED RED BLOOD CELL ABS 0.05 K/uL (0-0); PLATELET COUNT 138 K/uL (130-400); RED CELL DISTRIBUTION WIDTH CV 18.1 % (11.5-14.5); RED CELL DISTRIBUTION WIDTH SD 73.7 fL (36.4-46.3)
[2017-05-08 06:57] LABS: ALBUMIN 2.3 gm/dl (3.4-5.0); CALCIUM 6.2 mg/dl (8.5-10.1); CREATININE 0.72 mg/dl (0.60-1.20); POTASSIUM 3.1 mmol/L (3.5-5.1)
[2017-05-08 07:02] LABS: TOTAL PROTEIN 5.3 gm/dl (6.4-8.2)
[2017-05-08] MEDS: CEROVITE ADV FORMULA TAB PO SCH (07:49)
[2017-05-08] MEDS: LOSARTAN POTASSIUM 50 MG TAB PO SCH (07:49)
[2017-05-08] MEDS: COLESTIPOL HCL 1 GM TAB PO SCH ×2 (07:49→20:56)
[2017-05-08] MEDS: NICOTINE 7 MG/24 HR TDSY TD SCH (07:50)
[2017-05-08] MEDS: POTASSIUM CHLORIDE 20 MEQ TABCR PO SCH ×5 (07:50→20:58)
[2017-05-08] MEDS: FoLIC ACID INJ 1 MG in SYRINGE 9.8 ML IV SCH (07:50)
[2017-05-08] MEDS: IPRATROPIUM BROMIDE/ALBUTEROL respimat INH INH SCH ×4 (07:51→20:55)
[2017-05-08] MEDS: THIAMINE HCL INJ 200 MG in SODIUM CHLORIDE 0.9% 50ML 50 ML IV SCH ×2 (08:00→20:55)
[2017-05-08] MEDS: FAMOTIDINE IV INJ 20 MG in SYRINGE 3 ML IV SCH ×2 (08:00→20:54)
[2017-05-08] MEDS: MAGNESIUM OXIDE 400 MG TAB PO SCH ×2 (09:00→20:56)
[2017-05-08] MEDS ORDERED: POTASSIUM CHLR 10 MEQ / WTR 10 MEQ in PREMIXED WATER 100 ML IV ONE (09:00)
[2017-05-08 09:40] LABS: HEPATITIS A IGM TC 51813E NON-REACTIVE (NON-REACTIVE); HEPATITIS B CORE IGM TC51854R NON-REACTIVE (NON-REACTIVE)
--- NOTE | 2017-05-08 11:06 | Progress Note ---
Subjective Date of Service: May 08, 2017. Subjective Pt evaluation today including: conversation w/ patient Patient was found sleeping. Patient awoke with verbal stimuli. Patient was questioned about drinking alcohol. Initially patient denies this, but when pressed on it due to her abnormal labs. Patient states that she drinks bourbon and coke, and has about 4 drinks a day. Patient states that she tries to quit but has tremors daily. Problem List Medical Problems: (1) Abdominal pain Status: Acute (2) Acute pancreatitis Status: Acute (3) Alcohol abuse Status: Acute (4) Alcohol intoxication Status: Acute (5) Anemia Status: Acute (6) Biliary obstruction Status: Acute (7) C. difficile colitis Status: Acute (8) C. difficile diarrhea Status: Acute (9) Chest pain Status: Acute (10) Contusion of multiple sites Status: Acute (11) Dehydration Status: Acute (12) Encounter for smoking cessation counseling Status: Acute (13) Epigastric abdominal pain Status: Acute (14) Fall Status: Acute (15) Fall due to slipping on ice or snow Status: Acute (16) Fracture of left distal radius Status: Acute (17) Hypocalcemia Status: Acute (18) Hypomagnesemia Status: Acute (19) Hypomagnesemia Status: Acute (20) Lactic acidosis Status: Acute (21) Pancreatitis Status: Acute Review of Systems Constitutional: No fever, No chills ENT: No hearing loss, No unusual epistaxis Respiratory: No cough, No sputum Cardiac: No chest pain, No orthopnea Abdomen: No pain, No nausea Musculoskeletal: No joint pain Neurologic: No memory loss, No paralysis Psychiatric: No depression symptoms Heme: No abnormal bleeding/bruising Endo: No fatigue Skin: No rash, No itch All Other Systems: Reviewed and Negative Medications Current Inpatient Medications Medications (Trade) Dose Ordered Sig/Razia Route Start Time Stop Time Status Last Admin Dose Admin Vancomycin HCl (Vancomycin Oral Soln) 125 mg Q6H PO 05/07/17 14:00 05/21/17 13:59 05/09/17 07:32 125 MG Enoxaparin Sodium (Lovenox Inj) 40 mg Q24H SC 05/07/17 13:30 06/06/17 13:29 05/08/17 13:44 40 MG Potassium Chloride/Sodium Chloride 1,000 ml @ 150 mls/hr Q6H40M IV 05/07/17 12:45 06/06/17 12:44 05/09/17 04:08 150 MLS/HR Ondansetron HCl (Zofran Inj) 4 mg Q6H PRN IV 05/07/17 11:15 06/06/17 11:14 05/07/17 12:06 4 MG Albuterol/ Ipratropium (Combivent Respimat Inh) 1 puffs QID INH 05/07/17 13:00 06/06/17 12:59 05/09/17 07:32 1 PUFFS Losartan Potassium (coZAAR TAB) 50 mg DAILY PO 05/08/17 09:00 06/07/17 08:59 05/09/17 07:33 50 MG Colestipol HCl (Colestid Tab) 1 gm BID PO 05/07/17 14:00 06/06/17 13:59 05/09/17 07:32 1 GM Thiamine HCl 200 mg/Sodium Chloride 52 ml @ 208 mls/hr BID IV 05/07/17 21:00 06/06/17 20:59 05/09/17 08:17 208 MLS/HR Folic Acid 1 mg/ Syringe 10 ml @ 5 mls/min QAM IV 05/08/17 09:00 06/07/17 08:59 05/09/17 07:34 5 MLS/MIN Multivitamins/ Minerals (Multivitamin W/ Minerals Tab) 1 tab QAM PO 05/08/17 09:00 06/07/17 08:59 05/09/17 07:33 1 TAB Nicotine (Nicoderm Cq 7 Mg Patch) 1 patch QAM TD 05/07/17 12:45 06/06/17 12:44 05/09/17 07:32 1 PATCH Miscellaneous (Remove Nicoderm Patch) 1 ea HS N/A 05/07/17 21:00 06/06/17 20:59 05/08/17 20:55 1 EA Gabapentin (Neurontin Tab) 600 mg Q12H PO 05/09/17 18:00 05/10/17 06:01 Gabapentin (Neurontin Tab) 600 mg Q24H PO 05/11/17 06:00 05/11/17 06:01 Raspberry (Raspberry Syrup 5ml Cup) 5 ml Q6H PO 05/07/17 14:00 05/21/17 13:59 05/09/17 07:32 5 ML Famotidine 20 mg/ Syringe 5 ml @ 2.5 mls/min BID IV 05/07/17 13:30 06/06/17 13:29 05/09/17 08:17 2.5 MLS/MIN Potassium Chloride (Klor-Con Tab) 20 meq TID PO 05/07/17 21:00 06/06/17 20:59 05/09/17 07:33 20 MEQ Magnesium Oxide (Mag-Ox Tab) 400 mg BID PO 05/08/17 09:00 06/07/17 08:59 05/09/17 07:33 400 MG Potassium Chloride (Klor-Con Tab) 20 meq BID PO 05/08/17 09:00 06/07/17 08:59 05/08/17 20:58 20 MEQ Ranitidine HCl (zANTac TAB) 150 mg BID PO 05/08/17 21:00 06/07/17 20:59 05/09/17 07:34 150 MG Objective Vital Signs Date Time Temp Pulse Resp B/P (MAP) Pulse Ox O2 Delivery O2 Flow Rate FiO2 05/08/17 08:00 Room Air 05/08/17 07:27 36.4 99 18 128/89 (102) 100 Room Air 05/08/17 04:17 36.6 95 18 130/91 (104) 99 Room Air 05/08/17 04:00 Room Air 05/07/17 23:59 Room Air 05/07/17 23:57 36.8 99 18 124/85 (98) 98 Room Air 05/07/17 20:00 96 Room Air 05/07/17 19:20 36.8 85 22 119/87 (98) 95 Room Air 05/07/17 16:00 95 Room Air 05/07/17 15:20 37.2 90 20 114/77 (89) 95 Room Air 05/07/17 12:40 37.3 97 16 135/88 (104) 100 Room Air 05/07/17 12:00 93 20 129/95 100 Room Air 05/07/17 11:31 95 05/07/17 11:09 94 15 137/93 100 Room Air Physical Exam General Appearance: WD/WN, no apparent distress Eyes: normal inspection ENT: normal ENT inspection Neck: supple, no adenopathy Respiratory/Chest: chest non-tender, lungs clear, normal breath sounds Cardiovascular: regular rate, rhythm, no edema Abdomen: normal bowel sounds, soft, + tenderness (in epigastric region) Extremities: no pedal edema, + pertinent finding (resting tremors) Neurologic/Psychiatric: alert, oriented x 3 Skin: normal color Lymphatic: no adenopathy Laboratory Results Last 24 Hours Test 05/07/17 12:30 05/07/17 16:19 05/07/17 17:20 05/08/17 06:18 Hepatitis A IgM Antibody NON-REACTIVE Hepatitis B Surface Antigen NEG Hepatitis B Core IgM Antibody NON-REACTIVE Hepatitis C Antibody NEG Sodium Level 135 mmol/L 137 mmol/L Potassium Level 3.2 mmol/L 3.1 mmol/L Chloride Level 101 mmol/L 104 mmol/L Carbon Dioxide Level 22 mmol/L 24 mmol/L Anion Gap 12.0 mmol/L 9.0 mmol/L Blood Urea Nitrogen 6 mg/dl 4 mg/dl Creatinine 0.60 mg/dl 0.72 mg/dl Est Creatinine Clear Calc Drug Dose 110.6 ml/min 92.2 ml/min Estimated GFR () 121.5 111.6 Estimated GFR (Non- 104.8 96.3 BUN/Creatinine Ratio 10.3 5.0 Random Glucose 116 mg/dl 144 mg/dl Calcium Level 6.6 mg/dl 6.2 mg/dl Magnesium Level 1.7 mg/dl 1.3 mg/dl Urine Color DK YELLOW Urine Appearance CLEAR Urine pH 6.0 Urine Specific [place] 1.015 Urine Protein NEG Urine Glucose (UA) NEG Urine Ketones NEG Urine Occult Blood NEG Urine Nitrite POS Urine Bilirubin NEG Urine Urobilinogen POS Urine Leukocyte Esterase TRACE Urine WBC (Auto) 1-5 /hpf Urine RBC (Auto) 0-4 /hpf Urine Hyaline Casts (Auto) 1-5 /lpf Urine Epithelial Cells (Auto) >30 /lpf Urine Bacteria (Auto) NEG White Blood Count 3.90 K/uL Red Blood Count 2.15 M/uL Hemoglobin 8.1 g/dL Hematocrit 24.6 % Mean Corpuscular Volume 114.4 fL Mean Corpuscular Hemoglobin 37.7 pg Mean Corpuscular Hemoglobin Concent 32.9 g/dl RDW Standard Deviation 73.7 fL RDW Coefficient of Variation 18.1 % Platelet Count 138 K/uL Mean Platelet Volume 9.8 fL Nucleated RBC Absolute Count (auto) 0.05 K/uL Nucleated Red Blood Cells % 1.2 % Total Bilirubin 3.6 mg/dl Aspartate Amino Transf (AST/SGOT) 136 U/L Alanine Aminotransferase (ALT/SGPT) 40 U/L Alkaline Phosphatase 285 U/L Total Protein 5.3 gm/dl Albumin 2.3 gm/dl Globulin 3.0 gm/dl Albumin/Globulin Ratio 0.8 Lipase 67 U/L Assessment and Plan 52yo female with h/o alcohol dependence, fatty liver, prior admission for c. diff colitis 09/2016, recent hospital stay for abdominal pain possibly related to PUD (gastric ulcer), HTN, and asthma presenting with severe diarrhea, mod- severe abdominal pain, emesis, weakness, and multiple electrolyte abnormalities along with abnormal LFTs. 1. C. diff colitis diagnosed on admission due to history Highly doubt active c. diff colitis. Patient has not had a bowel movement while here. Patient was complaining of similar history in prior admission and did not have one loose stool. Sadly, vancomycin was already started and will continue with same treatment. It is very likely that patient is going through withdrawal and these electrolyte abnormalities are due to alcohol abuse. will start librium 50mgpo tid. will hold morphine will give zantac. Awaiting gi input. will stop colestipol 2. severe abdominal pain - may be multifactorial including the c. diff colitis , acute/chronic hepatitis, PUD, Likely alcohol gastritis. Treat the c. diff. will continue with H2 emma 3. acute/chronic abnormal LFTs - imaging shows severe fatty liver. Surprisingly her imaging does not show cirrhotic changes. All past LFTs have been high, but they are much worse today. Patient confirms that she is drinking alcohol. Likely worsening her ab.d pain and causing worsening of her LFT 4. severe hypokalemia - 2nd to alcoholism and poor oral intake, etc. Replace IV/PO and repeat level this afternoon and again in AM. 5. severe hypomagnesemia - 2nd to alcoholism, poor oral intake, +/- etoh. Replace IV, repeat level this afternoon and again in AM. Check EKG to look at QTc. 6. alcoholism - again all labs are concerning for ongoing use Placed on librium.. Thus, place on alcohol withdrawal protocol with gabapentin + ativan prn. MVI, Thiamine, Folic Acid supplementation. 7. h/o folic acid def - IV folic acid while here. 8. pancytopenia - either 2nd to alcoholism, folic acid def, or liver disease - vs combination of factors. CBC in am. 9. DVT proph - lovenox 40mg daily. 10. HTN - continue losartan. 11. PUD - continue H2 emma. 12. asthma vs COPD - not active; continue outpatient combivent. 13. FEN - NS w/ KCl at 150cc/hr. Clear liquids. Replace K/mag. Repeat all lytes later today. 14. 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 Nicoderm patch 7mg/24 hr. I spent 35 minutes face to face time discussing management and alcoholism. Continued [facility] stay due to: inadequate po fluid intake, inadequate oral pain control, ambulation difficulties Discharge planning: uncertain
[2017-05-08] MEDS ORDERED: RANITIDINE HCL 150 MG TAB PO ONE (11:15)
[2017-05-08] MEDS ORDERED: CHLORDIAZEPOXIDE 25 MG CAP PO ONE ×4 (11:15→21:00)
[2017-05-08] MEDS: ENOXAPARIN 40 MG/0.4 ML SYR SC SCH (13:44)
[2017-05-08] MEDS: GABAPENTIN 600MG Q8H DOSE PO SCH ×2 (13:46→22:07)
[2017-05-08] MEDS: RANITIDINE HCL 150 MG TAB PO SCH (20:58)
[2017-05-09] MEDS: VANCOMYCIN HCL 125 MG/2.5ML SOLN PO SCH ×4 (02:44→20:14)
[2017-05-09] MEDS: RASPBERRY SYRUP 5 ML UDP PO SCH ×4 (02:44→20:15)
[2017-05-09 04:04] VITALS: BP 101/70; PULSE 96; TEMP 37.1; O2SAT 100
[2017-05-09] MEDS: NSS + 20MEQ KCL 1000ML 1,000 ML IV SCH ×3 (04:08→20:11)
[2017-05-09] MEDS: GABAPENTIN 600MG Q8H DOSE PO SCH (05:44)
[2017-05-09] MEDS: IPRATROPIUM BROMIDE/ALBUTEROL respimat INH INH SCH ×4 (07:32→20:15)
[2017-05-09] MEDS: NICOTINE 7 MG/24 HR TDSY TD SCH (07:32)
[2017-05-09] MEDS: COLESTIPOL HCL 1 GM TAB PO SCH ×2 (07:32→20:15)
[2017-05-09] MEDS: LOSARTAN POTASSIUM 50 MG TAB PO SCH (07:33)
[2017-05-09] MEDS: POTASSIUM CHLORIDE 20 MEQ TABCR PO SCH ×3 (07:33→20:16)
[2017-05-09] MEDS: CEROVITE ADV FORMULA TAB PO SCH (07:33)
[2017-05-09] MEDS: MAGNESIUM OXIDE 400 MG TAB PO SCH ×2 (07:33→20:17)
[2017-05-09] MEDS: RANITIDINE HCL 150 MG TAB PO SCH ×2 (07:34→21:28)
[2017-05-09] MEDS: FoLIC ACID INJ 1 MG in SYRINGE 9.8 ML IV SCH (07:34)
[2017-05-09 07:54] LABS: BASO % 1.2 %; BASO ABS # 0.05 K/uL (0-0.2); EOS % 2.4 %; HEMATOCRIT 24.4 % (37-47); HEMOGLOBIN 7.8 g/dL (12.0-16.0); IG# 0.04 K/uL (0.00-0.02); LYMPH % 31.9 %; LYMPH ABS # 1.32 K/uL (1.2-3.4); MEAN CELL VOLUME 116.7 fL (80-100); MEAN CORPUSCULAR HEMOGLOBIN 37.3 pg (25-34); MEAN PLATELET VOLUME 10.2 fL (7.4-10.4); MONO % 13.8 %; MONO ABS # 0.57 K/uL (0.11-0.59); NEUT % 49.7 %; NEUT ABS # 2.06 K/uL (1.4-6.5); NUCLEATED RED BLOOD CELL ABS 0.08 K/uL (0-0); PLATELET COUNT 174 K/uL (130-400); RED CELL DISTRIBUTION WIDTH CV 18.7 % (11.5-14.5); WHITE BLOOD COUNT 4.14 K/uL (4.8-10.8)
[2017-05-09 07:57] VITALS: BP 118/84; PULSE 108; TEMP 37; O2SAT 100
--- NOTE | 2017-05-09 07:59 | GASTROINTESTINAL CONSULTATION ---
DATE OF CONSULTATION: 05/08/2017 CHIEF COMPLAINT: Abdominal pain, nausea, vomiting, elevated liver function tests. HISTORY OF PRESENT ILLNESS: Ms. Harrison is a 52-year-old white female known to me from a recent prior hospitalization. The patient had been using alcoholic beverages often through the weekend and developed diffuse abdominal pain that occurred in the epigastrium and in particular in the right lower quadrant and suprapubic region. This became quite intense and she sought attention in the Emergency Room. The patient has a past medical history as described below but she developed nausea, vomiting for 5 days. She has also been treated at least on 2 occasions by her description for C. diff infection with Flagyl. This began in the summer. On admission, the patient has a C. diff stools that are positive. There is no rectal bleeding described. She denied any fever or chills but reports 10-12 bowel movements that are quite loose. Her earlier descriptions of abdominal pain compared to today's exam was that it was in the left lower quadrant and epigastrium. On today she gestures that the pain is more in the right lower quadrant. PAST MEDICAL HISTORY: Includes chronic alcoholism, macrocytic anemia presumably due to B12, folate deficiency, fatty liver, abnormal liver function test, anxiety, folate deficiency, hypertension, asthma, peptic ulcer disease, March 2017 and laparoscopic cholecystectomy history. FAMILY HISTORY: Significant for mother with morbid obesity. Father of COPD. SOCIAL HISTORY: The patient smokes cigarettes approximately 1/4 pack every day and has been a long time tobacco user. She also uses alcoholic beverages heavily at times. 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 ALLERGIES: INCLUDE PENICILLIN, SULFA, CODEINE, INDOMETHACIN, IODINE AND PEACH. HOME MEDICATIONS: Include Combivent, losartan and pantoprazole. REVIEW OF SYSTEMS: Otherwise noncontributory based on 13-point exam except for mentioned above. She denies any fevers or rigors. She has not had hematemesis or coffee-ground emesis, melena or bright red blood per rectum during this evaluation. She has copious diarrhea that is a yellow in color. She denies any frequent urination, has no prior history of kidney stones and reports no rashes. PHYSICAL EXAMINATION: VITAL SIGNS: At the present time shows blood pressure 102/71, respirations 22, pulse 89 and temperature afebrile at 36.9. She is 97% on room air. GENERAL: The patient is awake, alert and oriented and resting in bed, was sleeping but upon awakening began to complain of abdominal pain throughout her abdomen, mostly in the epigastrium and right lower quadrant areas. HEENT: Sclerae are minimally icteric. Oral mucosa is moist. She is normocephalic, atraumatic. NECK: There is no cervical or supraclavicular adenopathy. I do not appreciate thyromegaly. The patient has neck with normal range of motion. HEART: Normal S1, S2. LUNGS: Clear to auscultation without rales, rhonchi or wheezes. ABDOMEN: Soft, tender in the epigastrium with moderate palpation along with the lower abdomen, more so on the right side than on the left, but pain has elicited in almost any area that the abdomen is palpated. There are positive bowel sounds. I do not appreciate hepatosplenomegaly. EXTREMITIES: Without clubbing, cyanosis or edema. Normal range of motion. RECTAL: Deferred at this time. NEUROLOGIC: There are no focal neurologic defects. She is oriented to person, place and time. LABORATORY STUDIES: On admission revealed a low potassium of 2.7, low magnesium of 0.7. LFTs were elevated with a total and direct bilirubin of 5.73 and 3.9 respectively. AST 254, ALT 60, alkaline phosphatase 356, albumin is low at 2.9 and the lipase is 113. On today's labs, 05/08/2017, potassium is up to 3.1. LFTs are declining with a total bilirubin of 3.6, AST is 136, ALT 40, alkaline phosphatase 285, albumin remains low, lipase is also 67 and normal. She is negative for hepatitis A IgM, hepatitis B surface antigen, core IgM or hepatitis C antibody. Her alcohol level on admission was less than 3. Her white count on admission 4.65, hemoglobin 10.4, MCV 110.4, platelets 146,000 on 05/08/2017 today, hemoglobin is 8.1, platelets 138,000, white count 3.9. INR is normal at 1.1. Urinalysis shows trace leukocyte esterase, positive nitrites and positive urobilinogen, but only 1-5 white blood cells without bacteria. Her medications in the hospital include gabapentin, ranitidine, losartan, folic acid, multivitamins, electrolyte replacements, magnesium oxide, thiamine and was started on vancomycin 125 mg orally q. 6 hours. She is also on Colestid subQ DVT prophylaxis with Lovenox and Zofran. Imaging studies revealed a chest x-ray that showed a nonobstructive bowel gas pattern, air fluid levels and nondilated bowel of the central and lower abdomen suggesting enteritis or ileitis, no acute cardiopulmonary activity. The abdominal ultrasound suggested a change in her bile duct diameter up to approximately 10 mm from 7 mm, this is in a post-cholecystectomy patient and MRCP was recommended. The MRCP performed on 05/07/2017 evening revealed a pancreatic duct of normal diameter. The gallbladder is surgically absent. The common bile duct of 1 cm with no common bile duct filling defects, although there is an equivocal 2 mm filling defect within the left hepatic duct that may be artifactual. The pancreatic head and periduodenal region may have edema. IMPRESSION AND PLAN: The patient with symptoms of nausea, vomiting and abdominal pain that is diffuse in nature but seems at the present time to be in the right lower quadrant. She also had C. diff infection with a low white count, low hemoglobin, although there have been no signs of overt bleeding. She does have a recent gastric ulcer identified in late March. The source of the patient's bile duct dilation is unclear and could suggest a retained stone. Her LFTs are actually coming down over 24 hour period and I would continue to monitor these. However, depending on Sunday morning labs it may be prudent to consider ERCP and I will tentatively arrange this for the patient. In the meantime, electrolytes should be corrected including calcium, magnesium, phosphorus and potassium, DT protocol as needed. The patient has been switched to vancomycin for her C. diff and may be the source of most of the patient's abdominal pain is certainly the source of her diarrhea. If the pain persist; however, it may be prudent to obtain a CT or MRI of the abdomen and pelvis to look for abdominal pathology that is not identified on MRCP. We will continue to follow with you. We will keep the patient on clear liquids this evening and n.p.o. on Sunday morning for the possibility of the ERCP later today. All questions answered.
[2017-05-09] MEDS: FAMOTIDINE IV INJ 20 MG in SYRINGE 3 ML IV SCH (08:17)
[2017-05-09] MEDS: THIAMINE HCL INJ 200 MG in SODIUM CHLORIDE 0.9% 50ML 50 ML IV SCH ×2 (08:17→23:38)
[2017-05-09 08:27] LABS: TOTAL PROTEIN 4.8 gm/dl (6.4-8.2)
[2017-05-09] MEDS ORDERED: NURSING VERBAL MED ORDER ONE ×2 (09:45→18:15)
[2017-05-09 11:11] LABS: CALCIUM 6.4 mg/dl (8.5-10.1); CREATININE 0.45 mg/dl (0.60-1.20); POTASSIUM 4.4 mmol/L (3.5-5.1)
[2017-05-09] MEDS ORDERED: MAGNESIUM SULFATE 1GM / D5W 1 GM in PREMIXED IN D5W 100 ML IV ONE (11:30)
[2017-05-09 12:00] VITALS: BP 114/79; PULSE 96; TEMP 37; O2SAT 100
[2017-05-09] MEDS: ENOXAPARIN 40 MG/0.4 ML SYR SC SCH (12:42)
[2017-05-09] MEDS ORDERED: MoRPHine SULFATE 2 MG/ML CARP IV STA (12:56)
[2017-05-09 15:37] VITALS: BP 106/74; PULSE 102; TEMP 36.8; O2SAT 100
[2017-05-09] MEDS: CHLORDIAZEPOXIDE 25 MG CAP PO SCH ×2 (15:43→22:43)
[2017-05-09] MEDS ORDERED: GABAPENTIN 600MG Q12H DOSE PO SCH (18:00)
[2017-05-09] MEDS: MAGNESIUM SULFATE 1GM / D5W 1 GM in PREMIXED IN D5W 100 ML IV SCH ×2 (18:30→19:30)
[2017-05-09 20:00] VITALS: BP 118/85; PULSE 105; TEMP 36.7; O2SAT 100
[2017-05-09 22:54] VITALS: BP 106/65; PULSE 98; TEMP 36.7; O2SAT 99
[2017-05-10] VITALS: O2SAT 100
[2017-05-10] MEDS: NSS + 20MEQ KCL 1000ML 1,000 ML IV SCH (00:45)
[2017-05-10] MEDS ORDERED: hydrOXYzine HCL 25 MG TAB PO PRN (01:15)
[2017-05-10] MEDS: VANCOMYCIN HCL 125 MG/2.5ML SOLN PO SCH (01:19)
[2017-05-10] MEDS: RASPBERRY SYRUP 5 ML UDP PO SCH (01:19)
--- NOTE | 2017-05-10 02:19 | Progress Note ---
Progress Note Date of Service May 10, 2017. Progress Note At approx 0200 a mónica abdi was called. According to the RN the patient suddenly got aggressive and angry, yelling out at the staff stating " I have been treated for C Diff 5 times I don't need to be here, Im over this" Patient was half dressed to leave upon entering the room and was calm. Discussed AMA with patient and patient would not reply to questions asked regarding events leading up to this upset. The risks were reviewed with the patient three times and on three occasions patient reflected understanding. She was of sound mind when making decision to leave AMA. Form was signed. Patient called a family member to pick her up and she was brought down to the lobby via wheelchair.
--- NOTE | 2017-05-10 07:35 | Progress Note ---
Subjective Date of Service: May 09, 2017. Subjective Pt evaluation today including: conversation w/ patient, physical exam Patient seen at May 09 2016 at 16:00 Patient continues to have mild tremors. She states they have decreased today. Patient also is complaining of abdominal pain. She states it is epigastric and has mildly improved. She is asking for pain medicine. Patient again understands that her drinking likely provoked her diarrhea, nausea. Patient states she continues to have diarrhea and is using bedside commode, however, nurse states that she has only urinated and has not had a bowel movement. Nurse states also that patient has been unsteady on her feet. Problem List Medical Problems: (1) Abdominal pain Status: Acute (2) Acute pancreatitis Status: Acute (3) Alcohol abuse Status: Acute (4) Alcohol intoxication Status: Acute (5) Anemia Status: Acute (6) Biliary obstruction Status: Acute (7) C. difficile colitis Status: Acute (8) C. difficile diarrhea Status: Acute (9) Chest pain Status: Acute (10) Contusion of multiple sites Status: Acute (11) Dehydration Status: Acute (12) Encounter for smoking cessation counseling Status: Acute (13) Epigastric abdominal pain Status: Acute (14) Fall Status: Acute (15) Fall due to slipping on ice or snow Status: Acute (16) Fracture of left distal radius Status: Acute (17) Hypocalcemia Status: Acute (18) Hypomagnesemia Status: Acute (19) Hypomagnesemia Status: Acute (20) Lactic acidosis Status: Acute (21) Pancreatitis Status: Acute Review of Systems Constitutional: No fever, No chills ENT: No hearing loss Respiratory: No cough, No sputum Cardiac: No chest pain, No orthopnea Abdomen: + pain, + nausea, + diarrhea Female : No dysuria, No urinary frequency Neurologic: No memory loss, No paralysis Heme: No abnormal bleeding/bruising Endo: + fatigue Skin: No rash, No itch All Other Systems: Reviewed and Negative Medications Medications (Trade) Dose Ordered Sig/Razia Route Start Time Stop Time Status Last Admin Dose Admin Gabapentin (Neurontin Tab) 600 mg Q12H PO 05/09/17 18:00 05/10/17 06:01 DC 05/09/17 16:59 600 MG Magnesium Sulfate 1 gm/Prmx 100 ml @ 100 mls/hr NOW ONCE IV 05/09/17 11:30 05/09/17 12:29 DC 05/09/17 11:47 100 MLS/HR Morphine Sulfate (MoRPHine SULFATE INJ) 1 mg NOW STAT IV 05/09/17 12:56 05/09/17 13:34 DC 05/09/17 13:51 1 MG Chlordiazepoxide (Librium Cap) 50 mg BID PO 05/09/17 15:00 05/10/17 07:03 DC 05/09/17 22:43 50 MG Magnesium Sulfate 1 gm/Prmx 100 ml @ 100 mls/hr Q1H IV 05/09/17 18:30 05/09/17 20:29 DC 05/09/17 19:30 100 MLS/HR Objective Vital Signs Date Time Temp Pulse Resp B/P (MAP) Pulse Ox O2 Delivery O2 Flow Rate FiO2 05/10/17 00:00 100 Room Air 05/09/17 22:54 36.7 98 17 106/65 (79) 99 Room Air 05/09/17 20:00 36.7 105 18 118/85 (96) 100 Room Air 05/09/17 20:00 100 Room Air 05/09/17 16:00 Room Air 05/09/17 15:37 36.8 102 18 106/74 (85) 100 Room Air 05/09/17 12:00 37.0 96 16 114/79 (91) 100 Room Air 05/09/17 12:00 Room Air 05/09/17 08:00 Room Air 05/09/17 07:57 37.0 108 16 118/84 (95) 100 Physical Exam Comments: General Appearance: WD/WN, no apparent distress Eyes: normal inspection ENT: normal ENT inspection Neck: supple, no adenopathy Respiratory/Chest: chest non-tender, lungs clear, normal breath sounds Cardiovascular: regular rate, rhythm, no edema Abdomen: normal bowel sounds, soft, + tenderness (in epigastric region) Extremities: no pedal edema, + pertinent finding (resting tremors) Neurologic/Psychiatric: alert, oriented x 3 Skin: normal color Lymphatic: no adenopathy Laboratory Results Last 24 Hours Test 05/09/17 07:17 05/09/17 10:30 05/09/17 15:53 White Blood Count 4.14 K/uL Red Blood Count 2.09 M/uL Hemoglobin 7.8 g/dL Hematocrit 24.4 % Mean Corpuscular Volume 116.7 fL Mean Corpuscular Hemoglobin 37.3 pg Mean Corpuscular Hemoglobin Concent 32.0 g/dl Platelet Count 174 K/uL Mean Platelet Volume 10.2 fL Neutrophils (%) (Auto) 49.7 % Lymphocytes (%) (Auto) 31.9 % Monocytes (%) (Auto) 13.8 % Eosinophils (%) (Auto) 2.4 % Basophils (%) (Auto) 1.2 % Neutrophils # (Auto) 2.06 K/uL Lymphocytes # (Auto) 1.32 K/uL Monocytes # (Auto) 0.57 K/uL Eosinophils # (Auto) 0.10 K/uL Basophils # (Auto) 0.05 K/uL RDW Standard Deviation 77.0 fL RDW Coefficient of Variation 18.7 % Immature Granulocyte % (Auto) 1.0 % Immature Granulocyte # (Auto) 0.04 K/uL Nucleated RBC Absolute Count (auto) 0.08 K/uL Nucleated Red Blood Cells % 2.0 % Giant Platelets 1+ Polychromasia 1+ Basophilic Stippling 1+ Anisocytosis PRESENT Macrocytosis PRESENT [place] Bodies 1+ Total Bilirubin 2.4 mg/dl Direct Bilirubin 1.9 mg/dl Aspartate Amino Transf (AST/SGOT) 121 U/L Alanine Aminotransferase (ALT/SGPT) 40 U/L Alkaline Phosphatase 241 U/L Total Protein 4.8 gm/dl Albumin 2.0 gm/dl Sodium Level 144 mmol/L Potassium Level 4.4 mmol/L Chloride Level 115 mmol/L Carbon Dioxide Level 23 mmol/L Anion Gap 6.0 mmol/L Blood Urea Nitrogen 1 mg/dl Creatinine 0.45 mg/dl Est Creatinine Clear Calc Drug Dose 147.5 ml/min Estimated GFR () 133.5 Estimated GFR (Non- 115.2 BUN/Creatinine Ratio 3.3 Random Glucose 107 mg/dl Calcium Level 6.4 mg/dl Magnesium Level 0.8 mg/dl 1.2 mg/dl Assessment and Plan 52yo female with h/o alcohol dependence, fatty liver, prior admission for c. diff colitis 09/2016, recent hospital stay for abdominal pain possibly related to PUD (gastric ulcer), HTN, and asthma presenting with severe diarrhea, mod- severe abdominal pain, emesis, weakness, and multiple electrolyte abnormalities along with abnormal LFTs. 1. C. diff colitis diagnosed on admission due to history Highly doubt active c. diff colitis. No significant chagne from yesterday. Patient has not had significant BMs befor 16:00. Patient was complaining of similar history in prior admission and did not have one loose stool. Sadly, vancomycin was already started and will continue with same treatment. It is very likely that patient is going through withdrawal and these electrolyte abnormalities are due to alcohol abuse. will start librium 50mgpo tid. will hold morphine will give zantac. 2. severe abdominal pain - may be multifactorial including the c. diff colitis , acute/chronic hepatitis, PUD, Likely alcohol gastritis. Treat the c. diff. will continue with H2 emma for alcohol gastritis 3. acute/chronic abnormal LFTs - imaging shows severe fatty liver. Surprisingly her imaging does not show cirrhotic changes. All past LFTs have been high, but are improving. Patient confirms that she is drinking alcohol. Likely worsening her ab.d pain and causing worsening of her LFT 4. severe hypokalemia - 2nd to alcoholism and poor oral intake, etc. Continue to be low Replace IV/PO and repeat level this afternoon and again in AM. 5. severe hypomagnesemia - 2nd to alcoholism, poor oral intake, +/- etoh. Continue to be low Replace IV, repeat level this afternoon and again in AM. Check EKG to look at QTc. 6. alcoholism - again all labs are concerning for ongoing use Placed on librium.. Thus, place on alcohol withdrawal protocol with gabapentin + ativan prn. MVI, Thiamine, Folic Acid supplementation. Patient will need psychosocial rehabilitation counselor consult once she feels better to discuss options to help her quit drinking 7. h/o folic acid def - IV folic acid while here. 8. pancytopenia - either 2nd to alcoholism, folic acid def, or liver disease - vs combination of factors. CBC in am. 9. DVT proph - lovenox 40mg daily. 10. HTN - continue losartan. 11. PUD - continue H2 emma. 12. asthma vs COPD - not active; continue outpatient combivent. 13. FEN - NS w/ KCl at 150cc/hr. Clear liquids. Replace K/mag. Repeat all lytes later today. 14. tobacco dependence - service counselor to quit. Nicoderm patch 7mg/24 hr. Update:20:00 Patient has had 7 BM yesterday. will continue with vancomycin. Continued [facility] stay due to: inadequate po fluid intake, inadequate oral pain control, ambulation difficulties Discharge planning: uncertain
--- NOTE | 2017-05-10 07:37 | Discharge Summary ---
Discharge Summary Date of Service May 10, 2017. Discharge Summary Admission Date: May 07, 2017 at 11:22 Discharge Date: May 10, 2017 Discharge Disposition: Home Principal Diagnosis: Alochol withdrawal/ C. diff colitis/ severe elcetrolye abnormalities Immunizations: Have You Had Influenza Vaccine: No History of Tetanus Vaccine?: Yes History of Pneumococcal: No History of Hepatitis B Vaccine: No Hepatitis Immunization Date: Feb 06, 1990 Consultations: DATE OF CONSULTATION: 05/08/2017 CHIEF COMPLAINT: Abdominal pain, nausea, vomiting, elevated liver function tests. HISTORY OF PRESENT ILLNESS: Ms. Harrison is a 52-year-old white female known to me from a recent prior hospitalization. The patient had been using alcoholic beverages often through the weekend and developed diffuse abdominal pain that occurred in the epigastrium and in particular in the right lower quadrant and suprapubic region. This became quite intense and she sought attention in the Emergency Room. The patient has a past medical history as described below but she developed nausea, vomiting for 5 days. She has also been treated at least on 2 occasions by her description for C. diff infection with Flagyl. This began in the summer. On admission, the patient has a C. diff stools that are positive. There is no rectal bleeding described. She denied any fever or chills but reports 10-12 bowel movements that are quite loose. Her earlier descriptions of abdominal pain compared to today's exam was that it was in the left lower quadrant and epigastrium. On today she gestures that the pain is more in the right lower quadrant. PAST MEDICAL HISTORY: Includes chronic alcoholism, macrocytic anemia presumably due to B12, folate deficiency, fatty liver, abnormal liver function test, anxiety, folate deficiency, hypertension, asthma, peptic ulcer disease, March 2017 and laparoscopic cholecystectomy history. FAMILY HISTORY: Significant for mother with morbid obesity. Father of COPD. SOCIAL HISTORY: The patient smokes cigarettes approximately 1/4 pack every day and has been a long time tobacco user. She also uses alcoholic beverages heavily at times. 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 ALLERGIES: INCLUDE PENICILLIN, SULFA, CODEINE, INDOMETHACIN, IODINE AND PEACH. HOME MEDICATIONS: Include Combivent, losartan and pantoprazole. REVIEW OF SYSTEMS: Otherwise noncontributory based on 13-point exam except for mentioned above. She denies any fevers or rigors. She has not had hematemesis or coffee-ground emesis, melena or bright red blood per rectum during this evaluation. She has copious diarrhea that is a yellow in color. She denies any frequent urination, has no prior history of kidney stones and reports no rashes. PHYSICAL EXAMINATION: VITAL SIGNS: At the present time shows blood pressure 102/71, respirations 22, pulse 89 and temperature afebrile at 36.9. She is 97% on room air. GENERAL: The patient is awake, alert and oriented and resting in bed, was sleeping but upon awakening began to complain of abdominal pain throughout her abdomen, mostly in the epigastrium and right lower quadrant areas. HEENT: Sclerae are minimally icteric. Oral mucosa is moist. She is normocephalic, atraumatic. NECK: There is no cervical or supraclavicular adenopathy. I do not appreciate thyromegaly. The patient has neck with normal range of motion. HEART: Normal S1, S2. LUNGS: Clear to auscultation without rales, rhonchi or wheezes. ABDOMEN: Soft, tender in the epigastrium with moderate palpation along with the lower abdomen, more so on the right side than on the left, but pain has elicited in almost any area that the abdomen is palpated. There are positive bowel sounds. I do not appreciate hepatosplenomegaly. EXTREMITIES: Without clubbing, cyanosis or edema. Normal range of motion. RECTAL: Deferred at this time. NEUROLOGIC: There are no focal neurologic defects. She is oriented to person, place and time. LABORATORY STUDIES: On admission revealed a low potassium of 2.7, low magnesium of 0.7. LFTs were elevated with a total and direct bilirubin of 5.73 and 3.9 respectively. AST 254, ALT 60, alkaline phosphatase 356, albumin is low at 2.9 and the lipase is 113. On today's labs, 05/08/2017, potassium is up to 3.1. LFTs are declining with a total bilirubin of 3.6, AST is 136, ALT 40, alkaline phosphatase 285, albumin remains low, lipase is also 67 and normal. She is negative for hepatitis A IgM, hepatitis B surface antigen, core IgM or hepatitis C antibody. Her alcohol level on admission was less than 3. Her white count on admission 4.65, hemoglobin 10.4, MCV 110.4, platelets 146,000 on 05/08/2017 today, hemoglobin is 8.1, platelets 138,000, white count 3.9. INR is normal at 1.1. Urinalysis shows trace leukocyte esterase, positive nitrites and positive urobilinogen, but only 1-5 white blood cells without bacteria. Her medications in the hospital include gabapentin, ranitidine, losartan, folic acid, multivitamins, electrolyte replacements, magnesium oxide, thiamine and was started on vancomycin 125 mg orally q. 6 hours. She is also on Colestid subQ DVT prophylaxis with Lovenox and Zofran. Imaging studies revealed a chest x-ray that showed a nonobstructive bowel gas pattern, air fluid levels and nondilated bowel of the central and lower abdomen suggesting enteritis or ileitis, no acute cardiopulmonary activity. The abdominal ultrasound suggested a change in her bile duct diameter up to approximately 10 mm from 7 mm, this is in a post-cholecystectomy patient and MRCP was recommended. The MRCP performed on 05/07/2017 evening revealed a pancreatic duct of normal diameter. The gallbladder is surgically absent. The common bile duct of 1 cm with no common bile duct filling defects, although there is an equivocal 2 mm filling defect within the left hepatic duct that may be artifactual. The pancreatic head and periduodenal region may have edema. IMPRESSION AND PLAN: The patient with symptoms of nausea, vomiting and abdominal pain that is diffuse in nature but seems at the present time to be in the right lower quadrant. She also had C. diff infection with a low white count, low hemoglobin, although there have been no signs of overt bleeding. She does have a recent gastric ulcer identified in late March. The source of the patient's bile duct dilation is unclear and could suggest a retained stone. Her LFTs are actually coming down over 24 hour period and I would continue to monitor these. However, depending on Sunday morning labs it may be prudent to consider ERCP and I will tentatively arrange this for the patient. In the meantime, electrolytes should be corrected including calcium, magnesium, phosphorus and potassium, DT protocol as needed. The patient has been switched to vancomycin for her C. diff and may be the source of most of the patient's abdominal pain is certainly the source of her diarrhea. If the pain persist; however, it may be prudent to obtain a CT or MRI of the abdomen and pelvis to look for abdominal pathology that is not identified on MRCP. We will continue to follow with you. We will keep the patient on clear liquids this evening and n.p.o. on Sunday morning for the possibility of the ERCP later today. All questions answered. Hospital Course Unable to complete an exam because patient signed out AMA before the day shift. Patient was being treated for severe electrolyte abnormalities from likely alcohol withdrawal and poor intake. This was also accompanied by possible C. diff. Patient was recently in the hospital with same issues, hwoever at that point she was denying alcohol intake. However her tests were highly suggestive of alcohol intake. She did not have any loose stools during last admission. She did though test positive for C. diff but was asymptomatic and likely colonized. Patient will likely be a readmit as she has not finished treatment with her antibiotics and did not get her electrolytes replenished. During this admission: 1. C. diff colitis diagnosed on admission due to history No significant change from yesterday. Patient had 7 BM yesterday. Patient was complaining of similar history in prior admission and did not have one loose stool. On vancomycin day 3. It is very likely that patient is going through withdrawal and these electrolyte abnormalities are due to alcohol abuse. will continue librium 50mgpo tid. will hold morphine will give zantac. 2. severe abdominal pain - may be multifactorial including the c. diff colitis , acute/chronic hepatitis, PUD, Likely alcohol gastritis. Treat the c. diff. will continue with H2 emma for alcohol gastritis 3. acute/chronic abnormal LFTs - imaging shows severe fatty liver. Surprisingly her imaging does not show cirrhotic changes. All past LFTs have been high, but are improving. Patient confirms that she is drinking alcohol. Likely worsening her ab.d pain and causing worsening of her LFT 4. severe hypokalemia - 2nd to alcoholism and poor oral intake, etc. Continue to be low Replace IV/PO and repeat level this afternoon and again in AM. 5. severe hypomagnesemia - 2nd to alcoholism, poor oral intake, +/- etoh. Continue to be low Replace IV, repeat level this afternoon and again in AM. Check EKG to look at QTc. 6. alcoholism - again all labs are concerning for ongoing use Placed on librium.. Thus, place on alcohol withdrawal protocol with gabapentin + ativan prn. MVI, Thiamine, Folic Acid supplementation. Patient will need social science teacher consult once she feels better to discuss options to help her quit drinking 7. h/o folic acid def - IV folic acid while here. 8. pancytopenia - either 2nd to alcoholism, folic acid def, or liver disease - vs combination of factors. CBC in am. 9. DVT proph - lovenox 40mg daily. 10. HTN - continue losartan. 11. PUD - continue H2 emma. 12. asthma vs COPD - not active; continue outpatient combivent. 13. FEN - NS w/ KCl at 150cc/hr. Clear liquids. Replace K/mag. Repeat all lytes later today. 14. tobacco dependence - clinical counselor to quit. Nicoderm patch 7mg/24 hr. Total Time Spent: Less than 30 minutes This includes examination of the patient, discharge planning, medication reconciliation, and communication with other providers. Discharge Instructions Please refer to the electronic Patient Visit Report (Discharge Instructions) for additional information. Additional Copies To Jeb Burgess MD
--- NOTE | 2017-05-10 22:17 | GASTROENTEROLOGY PROGRESS NOTE ---
DATE: 05/09/2017 GASTROENTEROLOGY INPATIENT PROGRESS NOTE HISTORY OF PRESENT ILLNESS: Chart reviewed, the patient examined. Tentative plans for ERCP were for this afternoon; however, this was cancelled by anesthesiology. According to the nurse, the patient has not been requesting any pain medicine agents and/or she had been complaint overly of abdominal pain. There is some ongoing pain in the right lower quadrant area and to a lesser extent in the epigastrium. She has had a number stools today which are nonbloody. She is C. diff positive and was placed on oral vancomycin. She is also on colestipol. LABORATORY STUDIES: Did show a continued decrease - her white count currently is 4.14 with a hemoglobin of 7.8, which has declined since admission, although there is no description of overt bleeding. Platelet count is 174,000. MCV is elevated at 116. Stools on admission showed, in the ER where C. diff positive. The patient's serologic markers on May 07the hospital showed negative features for acute hepatitis A, B or C virus infection. The patient's alcohol level on admission was less than 3.0. The patient's potassium was 4.4, BUN and creatinine of 1 and 0.45; however, magnesium remain low this morning. The patient's LFTs earlier this morning showed bilirubin is down to 2.4 with a direct of 1.9, AST 121 down from 136, ALT stable with 40 and alkaline phosphate down to 241 from 285. Albumin remains low at 2.0. The yesterday's lipase was normal. Stool studies were negative for routine culture. REVIEW OF SYSTEMS: Otherwise noncontributory based on 13-point exam except for mentioned above. MEDICATIONS: List was reviewed and included gabapentin, Librium for DT prophylaxis, losartan, folic acid and multivitamins, magnesium replacement, thiamine, oral vancomycin and colestipol, Combivent, Lovenox for DVT prophylaxis and nicotine patch. PHYSICAL EXAMINATION: GENERAL: The patient is awake, alert and oriented x3. Overall, comfortable, resting in bed without any significant distress, offered by the patient. HEENT: The sclerae are mildly icteric. Oral mucosa moist. HEART: Normal S1, S2. LUNGS: Clear to auscultation without rales, rhonchi or wheezes. ABDOMEN: Soft, mildly tender in the right lower quadrant and epigastrium without rebound or guarding, evidence of abdominal masses or bruits. There is no evidence for significant ascites or shifting dullness. There are positive bowel sounds. There is no rebound or guarding. EXTREMITIES: Without clubbing, cyanosis or edema. RECTAL: Deferred at this time. IMPRESSION AND PLAN: The patient with symptoms of elevated liver function test on admission along with evidence of Clostridium difficile infection. She has had this treated in the past several months. At the present time, her pain is less and although her imaging studies suggest that the bile duct is slightly more prominent than it has been in the past in this status post cholecystectomy patient, her LFTs are trending downward. At this time, we will observe on a day to day basis and I believe it is reasonable to advance her diet tonight to full liquids and is doing well tomorrow and LFTs continue to drop, a low fat diet can be started. Would continue delirium tremens prophylaxis with the benzodiazepines. At some point, a repeat imaging study such as an MRCP to assess for any progressive dilation is prudent and certainly if pain or LFTs suggests a biliary obstruction, then reconsideration for ERCP may be necessary. We will continue to follow with you. Please follow LFTs on a daily basis.
[2017-05-11] MEDS ORDERED: GABAPENTIN 600MG X1 DOSE PO SCH (06:00)
== END 2017-05-10 07:02 | disposition left against medical advice (07) | DRG 372 ==
LOC: C.EDB 06:41 → C.2T 11:22 → ENRESERV 11:44
PROVIDERS: ADMIT Internal Medicine; ATTEND Internal Medicine Sports Medicine
DX: A04.72 Enterocolitis due to Clostridium difficile, not specified as recurrent (principal); F10.230 Alcohol dependence with withdrawal, uncomplicated; B17.9 Acute viral hepatitis, unspecified; B18.9 Chronic viral hepatitis, unspecified; D61.818 Other pancytopenia; K29.20 Alcoholic gastritis without bleeding; K27.9 Peptic ulcer, site unspecified, unspecified as acute or chronic, without hemorrhage or perforation; R94.5 Abnormal results of liver function studies; K70.0 Alcoholic fatty liver; E87.6 Hypokalemia; E83.42 Hypomagnesemia; E53.8 Deficiency of other specified B group vitamins; I10 Essential (primary) hypertension; J45.909 Unspecified asthma, uncomplicated; J44.9 Chronic obstructive pulmonary disease, unspecified; F17.210 Nicotine dependence, cigarettes, uncomplicated; Z87.11 Personal history of peptic ulcer disease; Z90.49 Acquired absence of other specified parts of digestive tract; Z79.899 Other long term (current) drug therapy; Z88.0 Allergy status to penicillin; Z88.2 Allergy status to sulfonamides; Z83.49 Family history of other endocrine, nutritional and metabolic diseases; Z82.5 Family history of asthma and other chronic lower respiratory diseases

== ENCOUNTER 2017-06-27 07:21 | Inpatient (IN) | payer OTHER ==
[~2017-06-27] VITALS: Ht 172.7 cm; Wt 98.1 kg
[2017-06-27] VITALS (39 sets, daily range): BP systolic 73–107; BP diastolic 44–69; PULSE 86–97; TEMP 36.4–36.8; O2SAT 93–100; BMI 23.7
[2017-06-27] MEDS ORDERED: ONDANSETRON INJ 2 MG/ML 2 ML VIAL IV STA (07:31)
[2017-06-27] MEDS ORDERED: SODIUM CHLORIDE 0.9% 1000ML 3,000 ML IV STA (07:31)
[2017-06-27] MEDS ORDERED: ONDANSETRON INJ 2 MG/ML 2 ML VIAL ONE ×2 (07:39→16:57)
[2017-06-27] MEDS ORDERED: AZTREONAM IV 2,000 MG in DEXTROSE 5% 100ML 100 ML IV SCH (07:45)
[2017-06-27 07:47] LABS: HEMATOCRIT 21.1 % (37-47); MEAN CELL VOLUME 108.2 fL (80-100); MEAN CORPUSCULAR HEMOGLOBIN 35.9 pg (25-34); MEAN CORPUSCULAR HGB CONC 33.2 g/dl (32-36); MEAN PLATELET VOLUME 11.1 fL (7.4-10.4); NUCLEATED RED BLOOD CELL ABS 0.18 K/uL (0-0); PLATELET COUNT 219 K/uL (130-400); RED CELL DISTRIBUTION WIDTH CV 19.6 % (11.5-14.5); RED CELL DISTRIBUTION WIDTH SD 76.8 fL (36.4-46.3); WHITE BLOOD COUNT 10.11 K/uL (4.8-10.8)
[2017-06-27] MEDS: FENTANYL CITRATE INJ 50 MCG/1 ML 2 ML VIAL IV PRN ×5 (07:51→21:14)
--- NOTE | 2017-06-27 07:56 | DIAGNOSTIC IMAGING REPORT ---
CHEST ONE VIEW PORTABLE CLINICAL HISTORY: ABDOMINAL PAIN/GI COMPARISON STUDY: 05/07/2017 FINDINGS: Chronic granulomatous change throughout both hemithoraces. No evidence for cardiac enlargement. Diaphragms are smooth. Lungs are clear. IMPRESSION: No acute process. Chronic granulomatous change. The above report was generated using voice recognition software. It may contain grammatical, syntax or spelling errors. Electronically signed by: Bart Kay M.D. 06/27/2017 7:55 AM Dictated Date/Time: 06/27/2017 7:54 AM
[2017-06-27 07:57] LABS: INR 1.3 (0.9-1.1); PTT PATIENT 28.9 SECONDS (21.0-31.0)
[2017-06-27] MEDS ORDERED: DAPTOmycin IV 450 MG in SYRINGE 0 ML IV ONE (08:00)
[2017-06-27 08:09] LABS: ALBUMIN 2.1 gm/dl (3.4-5.0); BASO % 0.4 %; BASO ABS # 0.04 K/uL (0-0.2); CALCIUM 7.7 mg/dl (8.5-10.1); CREATININE 3.64 mg/dl (0.60-1.20); EOS % 0.4 %; EOS ABS # 0.04 K/uL (0-0.5); IG# 0.04 K/uL (0.00-0.02); LYMPH % 14.1 %; LYMPH ABS # 1.43 K/uL (1.2-3.4); MONO % 7.9 %; NEUT % 76.8 %; NEUT ABS # 7.76 K/uL (1.4-6.5); POTASSIUM 2.5 mmol/L (3.5-5.1); TOTAL PROTEIN 6.2 gm/dl (6.4-8.2)
--- NOTE | 2017-06-27 08:13 | DIAGNOSTIC IMAGING REPORT ---
HEAD WITHOUT CONTRAST (CT) CLINICAL HISTORY: 52 years-old Female with fall vomiting. Acute head injury status post fall TECHNIQUE: Multiple axial CT images of the head were obtained without contrast. A dose lowering technique was utilized adhering to the principles of ALARA. COMPARISON: CT head 12/10/2015 FINDINGS: No acute intracranial hemorrhage, midline shift, intracranial mass, hydrocephalus, territorial ischemia or abnormal extra-axial collection. Ill-defined areas of low-attenuation within the periventricular white matter suggest mild chronic microvascular ischemic changes. Cerebral vascular calcifications are seen at the level of the skull base. Focal area of low-attenuation involving the left lentiform nucleus, image 11 series 2 which is unchanged suggesting remote lacunar infarction or prominent perivascular space. The calvarium is intact. Postoperative changes of the right mastoid air cells. The left mastoid air cells are clear. Paranasal sinuses are also generally clear. Soft tissues are unremarkable. Orbits are symmetric. IMPRESSION: No acute intracranial abnormality. The above report was generated using voice recognition software. It may contain grammatical, syntax or spelling errors. Electronically signed by: Nicolas Song M.D. 06/27/2017 8:12 AM Dictated Date/Time: 06/27/2017 8:09 AM
--- NOTE | 2017-06-27 08:21 | DIAGNOSTIC IMAGING REPORT ---
ABD/PELVIS NO IV OR ORAL CONT CT DOSE: 1080.16 mGy.cm HISTORY: ABDOMINAL PAIN/GI TECHNIQUE: Multiaxial CT images of the abdomen and pelvis were performed without contrast. A dose lowering technique was utilized adhering to the principles of ALARA. COMPARISON STUDY: 04/11/2017 FINDINGS: Several calcified granulomas of the lung bases. Stable hepatomegaly with diffuse fatty infiltration. Kidneys are considered negative for hydronephrosis or calcification. Pancreas is uniform. Prior cholecystectomy. Considerable wall thickening of the sigmoid colon. Fatty infiltration of the wall the a sending colon versus mild/moderate wall edematous change. No evidence for abscess collection or obstruction. Bladder is relatively collapsed. A very small fat-containing right inguinal hernia. No significant adenopathy. No evidence for free air or pneumatosis. IMPRESSION: 1. Findings of colonic wall thickening of the bulk of the sigmoid colon as well as a sending colon. 2. The appearance is consistent with evident diffuse colitis. 3. No evidence for abscess collection or obstruction. 4. Diffuse fatty infiltration of the liver unchanged from the prior exam. The above report was generated using voice recognition software. It may contain grammatical, syntax or spelling errors. Electronically signed by: Bart Kay M.D. 06/27/2017 8:20 AM Dictated Date/Time: 06/27/2017 8:09 AM
[2017-06-27] MEDS ORDERED: POTASSIUM CHLR 10 MEQ / WTR 10 MEQ in PREMIXED WATER 100 ML IV STA (08:27)
[2017-06-27] MEDS ORDERED: MoRPHine SULFATE 2 MG/ML CARP IV PRN (09:00)
[2017-06-27] MEDS ORDERED: ICU PROTOCOL FOR HYPERGLYCEMIA PRN (09:00)
[2017-06-27] MEDS ORDERED: MoRPHine SULFATE 4 MG/ML 1 ML CARP\\VIAL IV PRN (09:00)
[2017-06-27] MEDS ORDERED: OCTREOTIDE IV BOLUS & DRIP IV STA (09:02)
--- NOTE | 2017-06-27 09:13 | History and Physical ---
History & Physical Date & Time of Service: Jun 27, 2017 at 09:06 Chief Complaint: Hypotension/Abdominal Pain Primary Care Physician: Jeb Burgess MD History of Present Illness Source: patient Ms. Harrison is a 52 y/o female with PMHx of C. Diff (September 2016), Asthma, HTN, Anxiety, Alcohol Abuse, Tobacco Abuse, Non-Bleeding Gastric Ulcer, Macrocytic Anemia, Severe Fatty Liver Disease, and S/P Cholecystectomy who presents to the ED c/o abdominal pain x 1.5 weeks. She states this started after she feel while letting her dog out and hitting her head. She states she felt nauseous after this but no other symptoms. She did not get evaluated after this fall. She states she then developed b/l lower quadrant abdominal pain that waxed and waned but largely was constant. She has had intermittent episodes of emesis that has been clear and denies hematemesis. She states she has not travelled, eating new foods, or reports anyone with similar issues. She states she has had blood coming from the rectum. She does not think there is still but more blood, however, states this is only occuring once a day x 3 days. She reports poor oral intake over the past week. She denies anything that makes the pain better. She has noticed more abdominal bloating from baseline. She saw Dr. Teran in the hospital but denies having an established GI doctor. Patient does report H/ O alcohol abuse but couldn't elaborate on quanity of this. She state she has significantly reduced her drinking. Only reporting drinking a couple drinks per week but again would not further elaborate. Does not appear to be intoxicated at this time. She states due to her GI symptoms she hasn't had a drink x 1.5 weeks at least. In the ED, she is afebrile and without leukocytosis. She is hypotensive with Hgb 7 with evidence of macrocytic anemia. Anion gap of 19 with multiple electrolyte abnormalities. Bili is 9.1 with direct at 7.6 which is much higher than her baseline elevations. AST is 132 with ALT 20. Lactic acid 2.4. Cr is 3.64 with baseline approx. 0.6-0.8. Patient will be transferred to the ICU for further assessment and intervention Past Medical/Surgical History 1. Non-Bleeding Gastric Ulcer 2. HTN 3. Macrocytic Anemia 4. Alcohol Abuse 5. Severe Fatty Liver 6. Anxiety 7. Asthma 8. C. Diff (2017) 9. S/P [place] Family History COPD Social History Smoking Status: Current Every Day Smoker (1-2 cigarettes/day) Alcohol Use: socially (2 drinks/week - history of significant ETOH abuse but would not quantify) Drug Use: none Marital Status: single Housing status: lives alone, other Occupational Status: employed Immunizations History of Influenza Vaccine: No History of Tetanus Vaccine?: Yes History of Pneumococcal: No History of Hepatitis B Vaccine: No Hepatitis Immunization Date: Feb 06, 1990 Allergies Coded Allergies: Penicillins (Verified Allergy, Intermediate, RASH/HIVES, 06/27/17) Sulfa Antibiotics (Verified Allergy, Intermediate, HIVES, 06/27/17) Codeine (Verified Allergy, Unknown, 06/27/17) Indomethacin (Verified Allergy, Unknown, 06/27/17) Iodine (Verified Allergy, Unknown, 06/27/17) [place] (Verified Allergy, Unknown, 06/27/17) Home Medications Scheduled Ipratropium-Albuterol (Combivent Respimat), 1 PUFF PO QID Losartan Potassium (Losartan Potassium), 50 MG PO DAILY Pantoprazole (Protonix), 40 MG PO DAILY Review of Systems Constitutional: + weakness (generalized), + fatigue, No fever, No chills Eyes: No worsening of vision ENT: No nasal symptoms, No sore throat Respiratory: No cough, No shortness of breath Cardiovascular: No chest pain, No palpitations Abdomen: + pain (b/l lower quandrants), + nausea, + vomiting, + GI bleeding ( hematochezia and blood clots - 1 episode per day x 3 days) Musculoskeletal: No swelling, No calf pain Genitourinary - Female: No dysuria, No urinary frequency, No hematuria Hematologic / Lymphatic: No abnormal bleeding/bruising Integumentary: No rash Physical Exam Vital Signs Date Time Temp Pulse Resp B/P (MAP) Pulse Ox O2 Delivery O2 Flow Rate FiO2 06/27/17 08:38 99 18 76/45 100 Room Air 06/27/17 08:23 94 22 84/49 97 Room Air 06/27/17 08:09 96 16 81/48 98 Room Air 06/27/17 07:52 96 18 81/44 100 Room Air 06/27/17 07:38 95 16 89/51 100 Room Air 06/27/17 07:36 100 Nasal Cannula 6.0 06/27/17 07:30 36.9 98 22 86/47 100 Room Air 06/27/17 07:27 96 General Appearance: no apparent distress Head: normocephalic, atraumatic Eyes: PERRL ENT: hearing grossly normal Neck: supple, no JVD, trachea midline Respiratory/Chest: lungs clear, normal breath sounds, no respiratory distress, no accessory muscle use Cardiovascular: regular rate, rhythm, no gallop, no murmur Abdomen/GI: normal bowel sounds, + tenderness (b/l lower quadants), + distended , + pertinent finding (BRBPR on briefs) Extremities/Musculoskelatal: no pedal edema Neurologic/Psych: alert (mildly lethargic), oriented x 3, + pertinent finding ( +asterixis) Skin: + jaundice Diagnostics Laboratory Results Results Past 24 Hours Test 06/27/17 07:30 06/27/17 07:45 06/27/17 07:56 Range/Units White Blood Count 10.11 4.8-10.8 K/uL Red Blood Count 1.95 4.2-5.4 M/uL Hemoglobin 7.0 12.0-16.0 g/dL Hematocrit 21.1 37-47 % Mean Corpuscular Volume 108.2 80-100 fL Mean Corpuscular Hemoglobin 35.9 25-34 pg Mean Corpuscular Hemoglobin Concent 33.2 32-36 g/dl Platelet Count 219 130-400 K/uL Mean Platelet Volume 11.1 7.4-10.4 fL Neutrophils (%) (Auto) 76.8 % Lymphocytes (%) (Auto) 14.1 % Monocytes (%) (Auto) 7.9 % Eosinophils (%) (Auto) 0.4 % Basophils (%) (Auto) 0.4 % Neutrophils # (Auto) 7.76 1.4-6.5 K/uL Lymphocytes # (Auto) 1.43 1.2-3.4 K/uL Monocytes # (Auto) 0.80 0.11-0.59 K/uL Eosinophils # (Auto) 0.04 0-0.5 K/uL Basophils # (Auto) 0.04 0-0.2 K/uL RDW Standard Deviation 76.8 36.4-46.3 fL RDW Coefficient of Variation 19.6 11.5-14.5 % Immature Granulocyte % (Auto) 0.4 % Immature Granulocyte # (Auto) 0.04 0.00-0.02 K/uL Nucleated RBC Absolute Count (auto) 0.18 0-0 K/uL Nucleated Red Blood Cells % 1.8 % Large Platelets 1+ Basophilic Stippling 1+ Anisocytosis PRESENT Gruber-[place] Bodies 1+ Prothrombin Time 13.4 9.0-12.0 SECONDS Prothromb Time International Ratio 1.3 0.9-1.1 Activated Partial Thromboplast Time 28.9 21.0-31.0 SECONDS Partial Thromboplastin Ratio 1.1 Sodium Level 132 136-145 mmol/L Potassium Level 2.5 3.5-5.1 mmol/L Chloride Level 93 98-107 mmol/L Carbon Dioxide Level 19 21-32 mmol/L Anion Gap 19.0 3-11 mmol/L Blood Urea Nitrogen 26 7-18 mg/dl Creatinine 3.64 0.60-1.20 mg/dl Est Creatinine Clear Calc Drug Dose 18.2 ml/min Estimated GFR () 15.7 Estimated GFR (Non- 13.6 BUN/Creatinine Ratio 7.1 10-20 Bedside Glucose 75 70-90 mg/dl Random Glucose 64 70-99 mg/dl Lactic Acid Level 2.4 0.4-2.0 mmol/L Calcium Level 7.7 8.5-10.1 mg/dl Total Bilirubin 9.1 0.2-1 mg/dl Direct Bilirubin 7.6 0-0.2 mg/dl Aspartate Amino Transf (AST/SGOT) 132 15-37 U/L Alanine Aminotransferase (ALT/SGPT) 29 12-78 U/L Alkaline Phosphatase 377 45-117 U/L Ammonia 19.2 11-32 umol/L Total Protein 6.2 6.4-8.2 gm/dl Albumin 2.1 3.4-5.0 gm/dl Lipase 353 73-393 U/L Urine Color GREG Urine Appearance SLIGHTLY CLOUDY CLEAR Urine pH 4.5-7.5 Urine Specific [place] 1.019 1.000-1.030 Urine Protein NEG NEG Urine Glucose (UA) NEG Urine Ketones NEG Urine Occult Blood NEG Urine Nitrite NEG Urine Bilirubin NEG Urine Urobilinogen NEG Urine Leukocyte Esterase NEG Urine RBC 0-4 0-4 /hpf Urine WBC 1-5 0-5 /hpf Urine Epithelial Cells 10-20 0-5 /lpf Urine Renal Cells 5-10 FEW /lpf Urine Amorphous Sediment PRESENT NONE PRSENT Urine Bacteria NEG NEG Urine Hyaline Casts 1-5 0-5 /lpf Venous Blood pH 7.37 7.36-7.41 Venous Blood Partial Pressure CO2 34 38.0-50.0 mmHg Venous Blood Partial Pressure O2 25 mmHg Venous Blood HCO3 19 mmol/L Venous Blood Oxygen Saturation < 60.0 % Venous Blood Base Excess -5.4 mEq/L Microbiology Results 06/27/17 Blood Culture, Received Pending 06/27/17 Blood Culture, Received Pending Diagnostic Radiology ABD/PELVIS NO IV OR ORAL CONT FINDINGS: Several calcified granulomas of the lung bases. Stable hepatomegaly with diffuse fatty infiltration. Kidneys are considered negative for hydronephrosis or calcification. Pancreas is uniform. Prior cholecystectomy. Considerable wall thickening of the sigmoid colon. Fatty infiltration of the wall the a sending colon versus mild/moderate wall edematous change. No evidence for abscess collection or obstruction. Bladder is relatively collapsed. A very small fat-containing right inguinal hernia. No significant adenopathy. No evidence for free air or pneumatosis. IMPRESSION: 1. Findings of colonic wall thickening of the bulk of the sigmoid colon as well as a sending colon. 2. The appearance is consistent with evident diffuse colitis. 3. No evidence for abscess collection or obstruction. 4. Diffuse fatty infiltration of the liver unchanged from the prior exam. EKG Poor data quality, interpretation may be adversely affected Normal sinus rhythm Low voltage QRS ST & T wave abnormality, consider inferior ischemia ST & T wave abnormality, consider anterolateral ischemia Abnormal ECG When compared with ECG of 08-MAY-2017 06:55, T wave inversion now evident in Inferior leads T wave inversion now evident in Anterolateral leads Impression Assessment and Plan Ms. Harrison is a 52 y/o female with PMHx of C. Diff (September 2016), Asthma, HTN, Anxiety, Alcohol Abuse, Tobacco Abuse, Non-Bleeding Gastric Ulcer, Macrocytic Anemia, Severe Fatty Liver Disease, and S/P Cholecystectomy who presents to the ED c/o abdominal pain x 1.5 weeks. Possible Alcoholic Hepatitis with Possible Cholangitis vs Infectious Colitis vs C. Diff: - Admit to the ICU and place NPO except meds - Anion gap 19 - VBG currently shows acid/base balance at this time - will continue to monitor labs - Ciprofloxacin 200 mg IV Q12H and Flagyl 500 mg IV Q8H - Fluids administed in ED and will continue with NSS + 40 mEq KCl Acute Blood Loss Anemia on Chronic Macrocytic Anemia: - May be from colitis - no hematemesis but given history esophageal varices is a concern - reviewed EGD with no mention but did have non-bleeding gastric ulcers - Given risk for varicosities will place on Octreotide; Protonix 40 mg IV BID Acute Kidney Injury 2/2 Volume Depletion but Possible ATN: Baseline Cr 0.6-0.8 - This is likely in the setting of poor oral intake and emesis; however is hypotensive and ATN could be possible pending response. - Aggressive fluid resuscitation and repeat laboratories to assess response Elevated Bilirubin and Direct Bilirubin with Jaundice: - Continue to monitor - no direct findings of obstruction on imagine - continue to trend Alcohol Abuse: - Patient is reporting not drinking alcohol but reports significant H/O of such - previous admissions reviewed stating she did show some signs of withdrawal and will continue to monitor - AWSS protocal; Supplement with thiamine 100 mg IV daily and folic acid 1 mg IV daily Code Status: FULL RESUSCITATION Disposition: - Await clinical response Critical care time of 60 minutes. This includes chart review, patient evaluation , discussion of plan, intervention, and coordination of care with ICU and GI specialists. Resuscitation Status VTE Prophylaxis Will order VTE Prophylaxis: Yes Reason for no VTE drug order: Contraindicated Note Total Time: Critical Care 30 - 74 minutes
[2017-06-27] MEDS ORDERED: LORAZEPAM 2 MG/ML 1 ML VIAL IV PRN (09:15)
[2017-06-27] MEDS ORDERED: METRONIDAZOLE 500MG / 100ML NSS ONE (09:21)
[2017-06-27] MEDS ORDERED: OCTREOTIDE ACETATE INJ 100 MCG in SYR 9 ML PHA PREPARED IV ONE (09:30)
--- NOTE | 2017-06-27 09:54 | EMERGENCY ROOM VISIT NOTE ---
History Report prepared by Octavia: Geni Daniels Under the Supervision of: Dr. Mesfin Ramirez D.O. First contact with patient: 07:22 Stated Complaint: HYPOTENSION/ABDOMINAL PAIN History of Present Illness The patient is a 52 year old female who presents to the Emergency Room with complaints of worsening diffuse abdominal pain for the past week and a half. The patient states that a week and a half ago she fell while she was letting her dog out and hit her head. She was not medically evaluated after this incident. She denies LOC. Since that time, she has been feeling nauseated with intermittent vomiting and worsening lower abdominal pain. She reports severe abdominal pain that worsens with palpation. The patient is also complaining of diarrhea and states that she is "pooping blood" and passing blood clots with her bowel movements. She called an ambulance today and was brought to the ED for further evaluation. Per EMS, the patient received 500 ml NSS and 4 mg Zofran en route. Her BP was 80 systolic and her BSG was 62. The patient has a history of heavy alcohol consumption. She states that she was seen in the hospital in March 2017 and told to cut down on her alcohol use. She reports that she does not drink daily anymore and estimates that she has 2 alcoholic drinks per week. She has a history of pancreatitis. The patient states that she has not had any alcohol for several days due to her current symptoms. Source of History: patient, EMS Onset: 1.5 weeks ago Position: abdomen (diffuse) Symptom Intensity: severe Timing: worsening Modifying Factors (Worsening): other (palpation) Associated Symptoms: + nausea, + vomiting, + hematochezia, No LOC Review of Systems See HPI for pertinent positives & negatives. A total of 10 systems reviewed and were otherwise negative. Past Medical & Surgical Medical Problems: (1) Alcohol Abuse-Unspec (2) Anxiety (3) Anxiety State Nos (4) Asthma, Unspecified (5) C. difficile colitis (6) Calculus Of Ureter (7) Diverticulosis Colon (W/O Ment Of Hemorrhage) (8) Facial cellulitis (9) Gastroenteritis (10) GI bleed (11) Hypokalemia (12) Hypothyroidism Nos (13) Lumbago (14) Migraine Unspecified W/O Intract Mgrn W/O Status Migrainosus (15) Pancreatitis, acute (16) Severe alcohol use disorder (17) Shock circulatory Surgical Problems: (1) History of cholecystectomy (2) Hx of appendectomy Family History No significant family history Social History Smoking Status: Current Every Day Smoker Alcohol Use: heavy Drug Use: none Marital Status: single Occupation Status: employed Current/Historical Medications Scheduled Ipratropium-Albuterol (Combivent Respimat), 1 PUFF PO QID Losartan Potassium (Losartan Potassium), 50 MG PO DAILY Pantoprazole (Protonix), 40 MG PO DAILY Allergies Coded Allergies: Penicillins (Verified Allergy, Intermediate, RASH/HIVES, 06/27/17) Sulfa Antibiotics (Verified Allergy, Intermediate, HIVES, 06/27/17) Codeine (Verified Allergy, Unknown, 06/27/17) Indomethacin (Verified Allergy, Unknown, 06/27/17) Iodine (Verified Allergy, Unknown, 06/27/17) [place] (Verified Allergy, Unknown, 06/27/17) Physical Exam Vital Signs Date Time Temp Pulse Resp B/P (MAP) Pulse Ox O2 Delivery O2 Flow Rate FiO2 06/27/17 08:38 99 18 76/45 100 Room Air 06/27/17 08:23 94 22 84/49 97 Room Air 06/27/17 08:09 96 16 81/48 98 Room Air 06/27/17 07:52 96 18 81/44 100 Room Air 06/27/17 07:38 95 16 89/51 100 Room Air 06/27/17 07:36 100 Nasal Cannula 6.0 06/27/17 07:30 36.9 98 22 86/47 100 Room Air 06/27/17 07:27 96 Physical Exam CONSTITUTIONAL/VITAL SIGNS: Reviewed / noted above. GENERAL: Acutely ill appearing. INTEGUMENTARY: Positive jaundice. HEAD: Normocephalic. EYES: Positive scleral icterus, without trauma. ENT/OROPHARYNX: clear and dry, smell of ketones on the breath. LYMPHADENOPATHY/NECK: Is supple without lymphadenopathy or meningismus. RESPIRATORY: Lungs clear and equal. CARDIOVASCULAR: Regular rate and rhythm. GI/ABDOMEN: Soft and exquisitely tender in the epigastric and RUQ, enlarged liver. No rebound or guarding. Normal bowel sounds. EXTREMITIES: Warm and well perfused. BACK: No CVA tenderness. NEUROLOGICAL: Intact without focal deficits. PSYCHIATRIC: normal affect. MUSCULOSKELETAL: Normally developed with good muscle tone. Medical Decision & Procedures ER Provider Diagnostic Interpretation: Radiology results as stated below per my review and radiologist interpretation: CHEST ONE VIEW PORTABLE CLINICAL HISTORY: ABDOMINAL PAIN/GI COMPARISON STUDY: 05/07/2017 FINDINGS: Chronic granulomatous change throughout both hemithoraces. No evidence for cardiac enlargement. Diaphragms are smooth. Lungs are clear. IMPRESSION: No acute process. Chronic granulomatous change. The above report was generated using voice recognition software. It may contain grammatical, syntax or spelling errors. Electronically signed by: Bart Kay M.D. 06/27/2017 7:55 AM Dictated Date/Time: 06/27/2017 7:54 AM ABD/PELVIS NO IV OR ORAL CONT CT DOSE: 1080.16 mGy.cm HISTORY: ABDOMINAL PAIN/GI TECHNIQUE: Multiaxial CT images of the abdomen and pelvis were performed without contrast. A dose lowering technique was utilized adhering to the principles of ALARA. COMPARISON STUDY: 04/11/2017 FINDINGS: Several calcified granulomas of the lung bases. Stable hepatomegaly with diffuse fatty infiltration. Kidneys are considered negative for hydronephrosis or calcification. Pancreas is uniform. Prior cholecystectomy. Considerable wall thickening of the sigmoid colon. Fatty infiltration of the wall the a sending colon versus mild/moderate wall edematous change. No evidence for abscess collection or obstruction. Bladder is relatively collapsed. A very small fat-containing right inguinal hernia. No significant adenopathy. No evidence for free air or pneumatosis. IMPRESSION: 1. Findings of colonic wall thickening of the bulk of the sigmoid colon as well as a sending colon. 2. The appearance is consistent with evident diffuse colitis. 3. No evidence for abscess collection or obstruction. 4. Diffuse fatty infiltration of the liver unchanged from the prior exam. The above report was generated using voice recognition software. It may contain grammatical, syntax or spelling errors. Electronically signed by: Bart Kay M.D. 06/27/2017 8:20 AM Dictated Date/Time: 06/27/2017 8:09 AM HEAD WITHOUT CONTRAST (CT) CLINICAL HISTORY: 52 years-old Female with fall vomiting. Acute head injury status post fall TECHNIQUE: Multiple axial CT images of the head were obtained without contrast. A dose lowering technique was utilized adhering to the principles of ALARA. COMPARISON: CT head 12/10/2015 FINDINGS: No acute intracranial hemorrhage, midline shift, intracranial mass, hydrocephalus, territorial ischemia or abnormal extra-axial collection. Ill-defined areas of low-attenuation within the periventricular white matter suggest mild chronic microvascular ischemic changes. Cerebral vascular calcifications are seen at the level of the skull base. Focal area of low-attenuation involving the left lentiform nucleus, image 11 series 2 which is unchanged suggesting remote lacunar infarction or prominent perivascular space. The calvarium is intact. Postoperative changes of the right mastoid air cells. The left mastoid air cells are clear. Paranasal sinuses are also generally clear. Soft tissues are unremarkable. Orbits are symmetric. IMPRESSION: No acute intracranial abnormality. The above report was generated using voice recognition software. It may contain grammatical, syntax or spelling errors. Electronically signed by: Nicolas Song M.D. 06/27/2017 8:12 AM Dictated Date/Time: 06/27/2017 8:09 AM Laboratory Results 06/27/17 07:30 Red Blood Count 1.95, Mean Corpuscular Volume 108.2, Mean Corpuscular Hemoglobin 35.9, Mean Corpuscular Hemoglobin Concent 33.2, Mean Platelet Volume 11.1, Neutrophils (%) (Auto) 76.8, Lymphocytes (%) (Auto) 14.1, Monocytes (%) ( Auto) 7.9, Eosinophils (%) (Auto) 0.4, Basophils (%) (Auto) 0.4, Neutrophils # ( Auto) 7.76, Lymphocytes # (Auto) 1.43, Monocytes # (Auto) 0.80, Eosinophils # ( Auto) 0.04, Basophils # (Auto) 0.04 06/27/17 07:30 Test 06/27/17 07:30 06/27/17 07:45 06/27/17 07:56 White Blood Count 10.11 K/uL (4.8-10.8) Red Blood Count 1.95 M/uL (4.2-5.4) Hemoglobin 7.0 g/dL (12.0-16.0) Hematocrit 21.1 % (37-47) Mean Corpuscular Volume 108.2 fL (80-100) Mean Corpuscular Hemoglobin 35.9 pg (25-34) Mean Corpuscular Hemoglobin Concent 33.2 g/dl (32-36) Platelet Count 219 K/uL (130-400) Mean Platelet Volume 11.1 fL (7.4-10.4) Neutrophils (%) (Auto) 76.8 % Lymphocytes (%) (Auto) 14.1 % Monocytes (%) (Auto) 7.9 % Eosinophils (%) (Auto) 0.4 % Basophils (%) (Auto) 0.4 % Neutrophils # (Auto) 7.76 K/uL (1.4-6.5) Lymphocytes # (Auto) 1.43 K/uL (1.2-3.4) Monocytes # (Auto) 0.80 K/uL (0.11-0.59) Eosinophils # (Auto) 0.04 K/uL (0-0.5) Basophils # (Auto) 0.04 K/uL (0-0.2) RDW Standard Deviation 76.8 fL (36.4-46.3) RDW Coefficient of Variation 19.6 % (11.5-14.5) Immature Granulocyte % (Auto) 0.4 % Immature Granulocyte # (Auto) 0.04 K/uL (0.00-0.02) Nucleated RBC Absolute Count (auto) 0.18 K/uL (0-0) Nucleated Red Blood Cells % 1.8 % Large Platelets 1+ Basophilic Stippling 1+ Anisocytosis PRESENT [place] Bodies 1+ Prothrombin Time 13.4 SECONDS (9.0-12.0) Prothromb Time International Ratio 1.3 (0.9-1.1) Activated Partial Thromboplast Time 28.9 SECONDS (21.0-31.0) Partial Thromboplastin Ratio 1.1 Anion Gap 19.0 mmol/L (3-11) Est Creatinine Clear Calc Drug Dose 18.2 ml/min Estimated GFR () 15.7 Estimated GFR (Non- 13.6 BUN/Creatinine Ratio 7.1 (10-20) Bedside Glucose 75 mg/dl (70-90) Lactic Acid Level 2.4 mmol/L (0.4-2.0) Calcium Level 7.7 mg/dl (8.5-10.1) Total Bilirubin 9.1 mg/dl (0.2-1) Direct Bilirubin 7.6 mg/dl (0-0.2) Aspartate Amino Transf (AST/SGOT) 132 U/L (15-37) Alanine Aminotransferase (ALT/SGPT) 29 U/L (12-78) Alkaline Phosphatase 377 U/L (45-117) Ammonia 19.2 umol/L (11-32) Total Protein 6.2 gm/dl (6.4-8.2) Albumin 2.1 gm/dl (3.4-5.0) Lipase 353 U/L (73-393) Urine Color GREG Urine Appearance SLIGHTLY CLOUDY (CLEAR) Urine pH (4.5-7.5) Urine Specific [place] 1.019 (1.000-1.030) Urine Protein NEG (NEG) Urine Glucose (UA) (NEG) Urine Ketones (NEG) Urine Occult Blood (NEG) Urine Nitrite (NEG) Urine Bilirubin (NEG) Urine Urobilinogen (NEG) Urine Leukocyte Esterase (NEG) Urine RBC 0-4 /hpf (0-4) Urine WBC 1-5 /hpf (0-5) Urine Epithelial Cells 10-20 /lpf (0-5) Urine Renal Cells 5-10 /lpf (FEW) Urine Amorphous Sediment PRESENT (NONE PRSENT) Urine Bacteria NEG (NEG) Urine Hyaline Casts 1-5 /lpf (0-5) Venous Blood pH 7.37 (7.36-7.41) Venous Blood Partial Pressure CO2 34 mmHg (38.0-50.0) Venous Blood Partial Pressure O2 25 mmHg Venous Blood HCO3 19 mmol/L Venous Blood Oxygen Saturation < 60.0 % Venous Blood Base Excess -5.4 mEq/L Laboratory results as stated above per my review. Medications Administered Medications (Trade) Dose Ordered Sig/Razia Route Start Time Stop Time Status Last Admin Dose Admin Sodium Chloride 3,000 ml @ 999 mls/hr Q3H1M STAT IV 06/27/17 07:31 06/27/17 10:31 06/27/17 07:49 999 MLS/HR Ondansetron HCl (Zofran Inj) 4 mg NOW STAT IV 06/27/17 07:31 06/27/17 07:37 DC 06/27/17 07:31 4 MG Fentanyl Citrate (Fentanyl Inj) 50 mcg Q1H PRN IV 06/27/17 07:45 07/11/17 07:44 06/27/17 09:23 50 MCG Aztreonam 2000 mg/ Dextrose 110 ml @ 100 mls/hr Q8H IV 06/27/17 07:45 06/27/17 09:15 DC 06/27/17 07:49 100 MLS/HR Daptomycin 450 mg/ Syringe 9 ml @ 4.5 mls/min 0800 ONCE IV 06/27/17 08:00 06/27/17 09:15 DC 06/27/17 08:10 4.5 MLS/MIN Potassium Chloride 10 meq/ Prmx 100 ml @ 100 mls/hr NOW STAT IV 06/27/17 08:27 06/27/17 09:26 DC 06/27/17 08:48 100 MLS/HR ECG Per My Interpretation Indication: abdominal pain Rate (beats per minute): 97 Rhythm: normal sinus Findings: no acute ischemic change, other (ST inversions anteriolateral) ED Course 07: Previous medical records were reviewed. The patient was evaluated in room B1. A complete history and physical examination was performed. 0731: Zofran 4 mg IV, NSS 3000 ml @ 999 mls/hr IV 0745: Aztreonam 2000 mg/Dextrose 110 ml @ 100 mls/hr IV, Fentanyl 50 mcg IV - PRN 0800: Daptomycin 450 mg IV 0809: The patient was moved to room B11B. 0827: Potassium Chloride 10 meq IV 0834: I spoke with Dr. Mcnair. We discussed the patient's case. The patient will be evaluated by the [facility] for further management. 0845: I reassessed the patient at this time. She is resting more comfortably. I discussed the results and treatment plan with the patient. I answered all pertaining questions that she had. I obtained consent for blood. The patient expressed understanding and verbalized agreement. Medical Decision Differential considered: pancreatitis, hepatitis, or acute cholecystitis, AAA, UTI, pyelonephritis, kidney stones, appendicitis, diverticulitis, shingles, bowel obstruction mesenteric ischemia, intussusception, hernia. This is a 52-year-old female who presents to the ED with a chief complaint of abdominal pain, and vomiting off and on since a week and half ago. The patient also reports that she hit her head a week and half ago when she fell. The patient also reports some bloody diarrhea and clots. She is brought here by EMS. She does report history of significant alcohol use but limited this starting in March. She was given IV Zofran and IV fluids by EMS, 500 cc was given. The patient has positive scleral icterus and jaundice on exam. She is hypotensive and her mucous membranes are dry. She has upper abdominal disc tenderness on exam. The patient's evaluation included a normal sinus rhythm with a rate of 97. Hemoglobin is 7. INR is 1.3. Potassium is low at 2.5, BUN is 26. Lactic acid level was slightly elevated at 2.4. Total bilirubin is high at 9.1. Direct bilirubin is 7.6. AST is 152 and lipase was normal. A VBG does not reveal a significant acidosis. CT scan of the brain was negative for acute disease. CT scan of the abdomen and pelvis reveals a diffuse colitis. Chest x-ray was negative for acute disease. The patient does have a smell of ketones on her breath. She was given IV fluids 3 L normal saline. She was also started empirically on daptomycin and aztreonam. She was given IV Zofran. She did remain hypotensive despite 3 L normal saline IV. She was transfused 1 unit of blood. Consent has been signed. The patient be seen by the hospitalist service for further evaluation and care. Medication Reconcilliation Current Medication List: was personally reviewed by me Blood Pressure Screening Patient's blood pressure: Low blood pressure Consults Time Called: 08 Consulting Physician: Dr. Mcnair Returned Call: [address] Mcnair. We discussed the patient's case. The patient will be evaluated by the [facility] for further management. Impression Primary Impression: Anemia Additional Impressions: Dehydration Liver failure Hypotension GI bleed Critical Care I have personally spent greater than 35 minutes of critical care time in the direct management of this patient. This includes bedside care, interpretation of diagnostic studies, and testing, discussion with consultants, patient, and family members, and other required patient management activities. This 35 minutes is in excess of all separately billable procedures. Scribe Attestation The scribe's documentation has been prepared under my direction and personally reviewed by me in its entirety. I confirm that the note above accurately reflects all work, treatment, procedures, and medical decision making performed by me. Departure Information Dispostion Being Evaluated By Hospitalist Referrals Jeb Burgess MD (PCP) Problem Qualifiers
[2017-06-27] MEDS: OCTREOTIDE ACETATE INJ 500 MCG in NSS 100ML IV SCH ×2 (09:58→20:03)
[2017-06-27] MEDS ORDERED: MULTI-VITAMIN INFUSION INJ 10 ML, THIAMINE HCL INJ 100 MG, FoLIC ACID INJ 1 MG in SODIU... IV ONE (10:15)
[2017-06-27] MEDS: PANTOprazole INJ 40 MG in SYRINGE 0 ML IV SCH ×2 (10:25→20:49)
[2017-06-27] MEDS ORDERED: FENTANYL CITRATE INJ 50 MCG/1 ML 2 ML VIAL ONE (11:31)
[2017-06-27] MEDS ORDERED: CIPROFLOXACIN CONSULT ACTIVE PRN (12:00)
--- NOTE | 2017-06-27 13:32 | Critical Care Consultation ---
Critical Care Consultation Date of Consultation: Jun 27, 2017. Attending Physician: Daniel Ferrer D.O. Reason for Consultation: Multiorgan failure History of Present Illness 52 year-old female with h/o chronic alcohol abuse, liver disease, prior episodes of Cdiff colitis, came to ED c/o bloody diarrhea for approx 2 weeks, associate with no-bloody emesis and significant diffuse abdominal pain. She had repeated falls, dizziness, not clear whether she lost consciousness or not. Denies shortness of breath or chest pain. In ED she received 3 liters of crystalloid. Currently she is received the first unit PRBC Past Medical/Surgical History Chronic alcohol abuse C diff colitis Alcohol related liver disease HTN Chronic lung nodules Cholecystectomy Family History COPD Social History Smoking Status: Current Every Day Smoker Alcohol Use: heavy Drug Use: none Marital Status: single Occupation Status: employed Allergies Coded Allergies: Penicillins (Verified Allergy, Intermediate, RASH/HIVES, 06/27/17) Sulfa Antibiotics (Verified Allergy, Intermediate, HIVES, 06/27/17) Codeine (Verified Allergy, Unknown, ., 06/27/17) has tolerated morphine on multiple occasions while hospitalized Indomethacin (Verified Allergy, Unknown, 06/27/17) Iodine (Verified Allergy, Unknown, 06/27/17) [place] (Verified Allergy, Unknown, 06/27/17) Home Medications Scheduled Ipratropium-Albuterol (Combivent Respimat), 1 PUFF PO QID Losartan Potassium (Losartan Potassium), 50 MG PO DAILY Pantoprazole (Protonix), 40 MG PO DAILY Current Inpatient Medications Current Inpatient Medications Medications (Trade) Dose Ordered Sig/Razia Route Start Time Stop Time Status Last Admin Dose Admin Metronidazole 500 mg/Prmx 100 ml @ 100 mls/hr Q8H IV 06/27/17 18:00 07/07/17 17:59 Pantoprazole Sodium 40 mg/ Syringe 10 ml @ 5 mls/min BID IV 06/27/17 09:00 07/27/17 08:59 06/27/17 10:25 5 MLS/MIN Morphine Sulfate (MoRPHine SULFATE INJ) 2 mg Q2H PRN IV 06/27/17 09:00 07/11/17 08:59 Morphine Sulfate (MoRPHine SULFATE INJ) 4 mg Q2H PRN IV 06/27/17 09:00 07/11/17 08:59 Miscellaneous Information (Icu Protocol For Hyperglycemia) 1 ea PRN PRN N/A 06/27/17 09:00 06/29/17 08:59 Potassium Chloride 40 meq/ Sodium Chloride 1,020 ml @ 125 mls/hr Q8H10M IV 06/27/17 10:15 07/27/17 10:14 Octreotide Acetate 500 mcg/ Sodium Chloride 105 ml @ 10 mls/hr [id number] IV 06/27/17 09:30 07/27/17 09:29 06/27/17 09:58 10 MLS/HR Thiamine HCl 100 mg/Syringe 10 ml @ 2 mls/min Q24H IV 06/28/17 11:00 07/28/17 10:59 Folic Acid 1 mg/ Syringe 10 ml @ 5 mls/min Q24H IV 06/28/17 11:00 07/28/17 10:59 Multivitamins 10 ml/Thiamine HCl 100 mg/Folic Acid 1 mg/Sodium Chloride 1,011.2 ml @ 125 mls/ hr Q8H6M ONCE IV 06/27/17 10:15 06/27/17 18:20 06/27/17 10:25 125 MLS/HR Lorazepam (Ativan Inj) 1 mg ONE PRN IV 06/27/17 09:15 Ciprofloxacin/ Dextrose 200 mg/ Prmx 100 ml @ 100 mls/hr Q12 IV 06/27/17 21:00 07/07/17 20:59 Review of Systems Per HPI, all other systems reviewed and negative Physical Exam Date Time Temp Pulse Resp B/P (MAP) Pulse Ox O2 Delivery O2 Flow Rate FiO2 06/27/17 10:35 36.8 90 18 89/55 99 06/27/17 10:35 36.8 90 18 89/55 99 06/27/17 10:30 96 89/55 (69) 99 06/27/17 10:15 91 83/56 (59) 06/27/17 10:15 91 83/56 (59) 06/27/17 10:05 36.8 96 18 96/54 99 06/27/17 10:00 36.8 91 20 89/55 (66) 99 Room Air 06/27/17 10:00 98 Room Air 06/27/17 10:00 93 100/69 (92) 93 3/7/18 10:00 93 100/69 (92) 93 06/27/17 09:45 96 100 06/27/17 09:21 93 18 81/48 100 Room Air 06/27/17 09:17 100 Room Air 06/27/17 08:38 99 18 76/45 100 Room Air 06/27/17 08:23 94 22 84/49 97 Room Air 06/27/17 08:09 96 16 81/48 98 Room Air 06/27/17 07:52 96 18 81/44 100 Room Air 06/27/17 07:38 95 16 89/51 100 Room Air 06/27/17 07:36 100 Nasal Cannula 6.0 06/27/17 07:30 36.9 98 22 86/47 100 Room Air 06/27/17 07:27 96 General: NAD, no distress Heent: NC/AT, dry oral mucosa, icteric sclerae, pale conjunctivae Lungs: clear to auscultation bilaterally CVS:S1S2 regular, no rub, no murmur Abdomen: Diffuse tenderness, significant guarding Extremities: No edema 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:AAO x 3, no motor deficit, no tremors Laboratory Results Last 24 Hours Test 06/27/17 07:30 06/27/17 07:45 06/27/17 07:56 White Blood Count 10.11 K/uL Red Blood Count 1.95 M/uL Hemoglobin 7.0 g/dL Hematocrit 21.1 % Mean Corpuscular Volume 108.2 fL Mean Corpuscular Hemoglobin 35.9 pg Mean Corpuscular Hemoglobin Concent 33.2 g/dl Platelet Count 219 K/uL Mean Platelet Volume 11.1 fL Neutrophils (%) (Auto) 76.8 % Lymphocytes (%) (Auto) 14.1 % Monocytes (%) (Auto) 7.9 % Eosinophils (%) (Auto) 0.4 % Basophils (%) (Auto) 0.4 % Neutrophils # (Auto) 7.76 K/uL Lymphocytes # (Auto) 1.43 K/uL Monocytes # (Auto) 0.80 K/uL Eosinophils # (Auto) 0.04 K/uL Basophils # (Auto) 0.04 K/uL RDW Standard Deviation 76.8 fL RDW Coefficient of Variation 19.6 % Immature Granulocyte % (Auto) 0.4 % Immature Granulocyte # (Auto) 0.04 K/uL Nucleated RBC Absolute Count (auto) 0.18 K/uL Nucleated Red Blood Cells % 1.8 % Large Platelets 1+ Basophilic Stippling 1+ Anisocytosis PRESENT Gruber-[place] Bodies 1+ Prothrombin Time 13.4 SECONDS Prothromb Time International Ratio 1.3 Activated Partial Thromboplast Time 28.9 SECONDS Partial Thromboplastin Ratio 1.1 Sodium Level 132 mmol/L Potassium Level 2.5 mmol/L Chloride Level 93 mmol/L Carbon Dioxide Level 19 mmol/L Anion Gap 19.0 mmol/L Blood Urea Nitrogen 26 mg/dl Creatinine 3.64 mg/dl Est Creatinine Clear Calc Drug Dose 18.2 ml/min Estimated GFR () 15.7 Estimated GFR (Non- 13.6 BUN/Creatinine Ratio 7.1 Bedside Glucose 75 mg/dl Random Glucose 64 mg/dl Lactic Acid Level 2.4 mmol/L Calcium Level 7.7 mg/dl Total Bilirubin 9.1 mg/dl Direct Bilirubin 7.6 mg/dl Aspartate Amino Transf (AST/SGOT) 132 U/L Alanine Aminotransferase (ALT/SGPT) 29 U/L Alkaline Phosphatase 377 U/L Ammonia 19.2 umol/L Total Protein 6.2 gm/dl Albumin 2.1 gm/dl Lipase 353 U/L Urine Color GREG Urine Appearance SLIGHTLY CLOUDY Urine pH Urine Specific [place] 1.019 Urine Protein NEG Urine Glucose (UA) Urine Ketones Urine Occult Blood Urine Nitrite Urine Bilirubin Urine Urobilinogen Urine Leukocyte Esterase Urine RBC 0-4 /hpf Urine WBC 1-5 /hpf Urine Epithelial Cells 10-20 /lpf Urine Renal Cells 5-10 /lpf Urine Amorphous Sediment PRESENT Urine Bacteria NEG Urine Hyaline Casts 1-5 /lpf Venous Blood pH 7.37 Venous Blood Partial Pressure CO2 34 mmHg Venous Blood Partial Pressure O2 25 mmHg Venous Blood HCO3 19 mmol/L Venous Blood Oxygen Saturation < 60.0 % Venous Blood Base Excess -5.4 mEq/L Diagnostic Results CT abdomen: Several calcified granulomas of the lung bases. Stable hepatomegaly with diffuse fatty infiltration. Kidneys are considered negative for hydronephrosis or calcification. Pancreas is uniform. Prior cholecystectomy. Considerable wall thickening of the sigmoid colon. Fatty infiltration of the wall the a sending colon versus mild/moderate wall edematous change. No evidence for abscess collection or obstruction. Bladder is relatively collapsed. A very small fat-containing right inguinal hernia. No significant adenopathy. No evidence for free air or pneumatosis CXR: Chronic granulomatous change throughout both hemithoraces. No evidence for cardiac enlargement. Diaphragms are smooth. Lungs are clear. Assessment & Plan Severe sepsis secondary to colitis with multiorgan failure Likely Cdiff colitis GI bleeding Liver failure Acute kidney injury Chronic lung nodules Plan: POLICE SERGEANT: Ammonia level normal. No signs of alcohol withdrawal for the time being, low threshold to initiate lorazepam Thiamine CVS: Severely dehydrated Continue crystalloid infusion Transfusing 2 units PRBC Pulmonary: Has known lung nodules for years, seem stable over time No active issues GI: Acute liver failure, alcoholic hepatitis, possible ischemic hepatitis as well Monitor liver function Colitis seems recurrent. On IV metronidazole. May require PO vanco on a more chronic basis NPO for today ID: Continue IV metronidazole Renal/metabolic: KEVIN secondary to severe dehydration. FeNa is 0.2%, urine sodium 15 indicating pre-renal cause for KEVIN Heme: Repeat post-transfusion CBC Receiving 2 units PRBC today DVT prophylaxis: SCDs, no anticoagulation secondary to bleeding Critical care time spent with patient, reviewing the chart, greater than 35 minutes
[2017-06-27] MEDS: POTASSIUM CHLORIDE INJ 40 MEQ in SODIUM CHLORIDE 0.9% 1000ML 1,000 ML IV SCH ×2 (15:33→18:25)
[2017-06-27] MEDS: CIPROFLOXACIN 400MG / D5W IV SCH (15:33)
--- NOTE | 2017-06-27 15:42 | Anesthesiology Progress Note ---
Anesthesia Progress Note Date of Service Jun 27, 2017. Progress Notes Pt was scheduled for EGD to evaluate for source of GI bleeding. Upon evaluation , I found that pt is hypotensive (SBP 70's) and reportedly oliguric. PRBC's infusing. According to ICU staff, there is presently no sign of active GI bleeding. EGD is therefore not urgent and deferred until improvement in BP.
--- NOTE | 2017-06-27 16:28 | GASTROINTESTINAL CONSULTATION ---
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 HISTORY OF PRESENT ILLNESS: The patient is a 52-year-old female, admitted with a 3-day history of rectal bleeding. The patient reports that the bleeding is bright red, mixed with clots and has been painful and caused her to become extremely weak. She apparently has been falling at home and presented to the hospital with a hemoglobin of 7. 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 She said her last drink was a bourbon and Coke about 2 days ago. She is not experiencing any signs of withdrawal at the moment. She has had no nausea or vomiting. A CT scan of the abdomen performed showed thickening of the sigmoid colon and some infiltration around the ascending colon. LABORATORY DATA: Laboratories remarkable for an elevated lactic acid. White count is normal at 10.11, hemoglobin 7, MCV 108 and platelets are 219. BUN is 26, creatinine 3.64. Lactic acid is 2.4, bilirubin is 9.1, AST 132, ALT is normal at 29, alkaline phosphatase 377, and albumin is 2.1. PAST MEDICAL AND SURGICAL HISTORY: Remarkable for history of gastric ulcer, hypertension, alcohol, fatty liver, anxiety, asthma, history of C. diff in 2017. She has had a cholecystectomy and hysterectomy. FAMILY HISTORY: Positive for COPD. MEDICATIONS: Include Combivent, losartan and Protonix. ALLERGIES: PENICILLIN, SULFA, CODEINE, INDOMETHACIN, IODINE, PEACHES. SOCIAL HISTORY: The patient continues to drink alcohol. Smokes every day. She is single, lives alone, has a job outside the home. REVIEW OF SYSTEMS: The patient reports she is still having abdominal pain and feels "like cramp." PHYSICAL EXAMINATION: GENERAL: The patient appears older than her stated age. VITAL SIGNS: Blood pressure is 80s/50s pulse 99, O2 saturation is 100% on room air. EXTREMITIES: Showed no clubbing, cyanosis or edema. NEUROLOGIC: Showed no asterixis. ABDOMEN: Distended, decreased bowel sounds. There is tenderness throughout the abdomen, particularly in the left lower quadrant. IMPRESSION AND PLAN: I think the patient most likely had ischemic colitis based on the CT findings, elevated lactic acid, and the abdominal pain. The fact that she is passing clots typically indicates that the bleeding is coming from lower gastrointestinal source and her BUN and creatinine ratio was not elevated, which would indicate an upper gastrointestinal source. At this time, I would probably continue with supportive measures. I do not think if she has ischemic colitis, the endoscopic intervention would be esquivel at this point. I would continue her on antibiotics for now and bowel rest and observe for alcohol withdrawal. It is highly unlikely that she has ischemic liver disease given the normal ALT. The reversal in ratio with the AST greater than ALT is consistent with alcohol liver disease and/or cirrhosis, which we already know she has. Hopefully, with abstaining from alcohol, her liver tests will improve. Her albumin is low and she is obviously malnourished, so I would recommend that we give her a high calorie high protein supplement, while she is in the hospital. We will continue to follow the patient.
[2017-06-27 16:50] LABS: HEMATOCRIT 24.6 % (37-47); HEMOGLOBIN 8.3 g/dL (12.0-16.0); MEAN CELL VOLUME 101.2 fL (80-100); MEAN CORPUSCULAR HEMOGLOBIN 34.2 pg (25-34); MEAN CORPUSCULAR HGB CONC 33.7 g/dl (32-36); MEAN PLATELET VOLUME 11.1 fL (7.4-10.4); NUCLEATED RED BLOOD CELL ABS 0.09 K/uL (0-0); PLATELET COUNT 160 K/uL (130-400); RED CELL DISTRIBUTION WIDTH CV 20.7 % (11.5-14.5); RED CELL DISTRIBUTION WIDTH SD 75.6 fL (36.4-46.3); WHITE BLOOD COUNT 8.35 K/uL (4.8-10.8)
[2017-06-27 16:56] LABS: ALBUMIN 1.8 gm/dl (3.4-5.0); CALCIUM 6.8 mg/dl (8.5-10.1); CREATININE 3.08 mg/dl (0.60-1.20); PHOSPHORUS 2.5 mg/dl (2.5-4.9); POTASSIUM 2.5 mmol/L (3.5-5.1); TOTAL PROTEIN 5.7 gm/dl (6.4-8.2)
[2017-06-27] MEDS ORDERED: NURSING VERBAL MED ORDER ONE (17:15)
[2017-06-27] MEDS ORDERED: CALCIUM CHLORIDE 10% 10 ML SYR IV STA (17:35)
[2017-06-27] MEDS ORDERED: ONDANSETRON INJ 2 MG/ML 2 ML VIAL IV PRN (17:46)
[2017-06-27] MEDS ORDERED: CALCIUM CHLORIDE 10% 2,000 MG in SODIUM CHLORIDE 0.9% 50ML 50 ML IV ONE (18:00)
[2017-06-27] MEDS: MAGNESIUM SULFATE 1GM / D5W 1 GM in PREMIXED IN D5W 100 ML IV SCH ×2 (18:01→18:53)
[2017-06-27] MEDS: POTASSIUM CHLR 10 MEQ / WTR 10 MEQ in PREMIXED WATER 100 ML IV SCH ×4 (18:01→20:50)
[2017-06-27] MEDS: METRONIDAZOLE / NSS 500 MG in PREMIXED NSS 100 ML IV SCH (18:02)
[2017-06-27] MEDS: BOOST PLUS VANILLA PO SCH (20:49)
[2017-06-27] MEDS ORDERED: CIPROFLOXACIN / D5W 200 MG in PREMIXED IN D5W 100 ML IV SCH (21:00)
[2017-06-27 21:13] LABS: HEMATOCRIT 24.7 % (37-47); HEMOGLOBIN 8.2 g/dL (12.0-16.0); MEAN CELL VOLUME 100.4 fL (80-100); MEAN CORPUSCULAR HEMOGLOBIN 33.3 pg (25-34); MEAN CORPUSCULAR HGB CONC 33.2 g/dl (32-36); MEAN PLATELET VOLUME 11.8 fL (7.4-10.4); NUCLEATED RED BLOOD CELL ABS 0.08 K/uL (0-0); PLATELET COUNT 149 K/uL (130-400); RED CELL DISTRIBUTION WIDTH CV 21.8 % (11.5-14.5); RED CELL DISTRIBUTION WIDTH SD 78.3 fL (36.4-46.3); WHITE BLOOD COUNT 9.05 K/uL (4.8-10.8)
[2017-06-27 21:36] LABS: CREATININE 2.95 mg/dl (0.60-1.20); POTASSIUM 3.2 mmol/L (3.5-5.1)
[2017-06-28] VITALS (20 sets, daily range): BP systolic 82–116; BP diastolic 53–78; PULSE 91–102; TEMP 36.5–36.9; O2SAT 95–100
[2017-06-28] MEDS: FENTANYL CITRATE INJ 50 MCG/1 ML 2 ML VIAL IV PRN ×8 (00:26→23:50)
[2017-06-28] MEDS: METRONIDAZOLE / NSS 500 MG in PREMIXED NSS 100 ML IV SCH ×3 (02:12→19:07)
[2017-06-28] MEDS: POTASSIUM CHLORIDE INJ 40 MEQ in SODIUM CHLORIDE 0.9% 1000ML 1,000 ML IV SCH ×3 (03:08→19:08)
[2017-06-28 05:43] LABS: BASO % 0.2 %; BASO ABS # 0.02 K/uL (0-0.2); EOS % 1.2 %; EOS ABS # 0.12 K/uL (0-0.5); HEMATOCRIT 25.8 % (37-47); HEMOGLOBIN 8.7 g/dL (12.0-16.0); IG# 0.06 K/uL (0.00-0.02); LYMPH % 9.2 %; MEAN CELL VOLUME 100.4 fL (80-100); MEAN CORPUSCULAR HEMOGLOBIN 33.9 pg (25-34); MEAN CORPUSCULAR HGB CONC 33.7 g/dl (32-36); MEAN PLATELET VOLUME 10.4 fL (7.4-10.4); MONO % 9.2 %; NEUT % 79.6 %; NUCLEATED RED BLOOD CELL ABS 0.08 K/uL (0-0); PLATELET COUNT 166 K/uL (130-400); RED CELL DISTRIBUTION WIDTH SD 82.5 fL (36.4-46.3)
[2017-06-28 05:54] LABS: INR 1.3 (0.9-1.1); PTT PATIENT 30.1 SECONDS (21.0-31.0)
[2017-06-28] MEDS: OCTREOTIDE ACETATE INJ 500 MCG in NSS 100ML IV SCH (06:09)
[2017-06-28 06:32] LABS: ALBUMIN 1.8 gm/dl (3.4-5.0); CALCIUM 7.7 mg/dl (8.5-10.1); CREATININE 2.62 mg/dl (0.60-1.20); PHOSPHORUS 1.4 mg/dl (2.5-4.9); POTASSIUM 3.4 mmol/L (3.5-5.1); TOTAL PROTEIN 5.4 gm/dl (6.4-8.2)
[2017-06-28] MEDS: PANTOprazole INJ 40 MG in SYRINGE 0 ML IV SCH ×2 (08:45→21:31)
[2017-06-28] MEDS: FoLIC ACID INJ 1 MG in SYRINGE 9.8 ML IV SCH (08:47)
[2017-06-28] MEDS: THIAMINE HCL INJ 100 MG in SYRINGE 9 ML IV SCH (08:47)
[2017-06-28] MEDS: BOOST PLUS VANILLA PO SCH ×2 (08:48→20:10)
[2017-06-28] MEDS ORDERED: POTASSIUM PHOS 3 MMOL/1 ML INFUSION IV STA (09:17)
[2017-06-28] MEDS ORDERED: POTASSIUM PHOSPHATE INJ 30 MMOL in SODIUM CHLORIDE 0.9% 500ML 500 ML IV ONE (09:30)
[2017-06-28] MEDS: MAGNESIUM SULFATE 1GM / D5W 1 GM in PREMIXED IN D5W 100 ML IV SCH ×3 (09:51→12:29)
[2017-06-28] MEDS: CIPROFLOXACIN 400MG / D5W IV SCH (13:05)
--- NOTE | 2017-06-28 13:24 | Progress Note ---
Subjective Date of Service: Jun 28, 2017. Subjective Pt evaluation today including: conversation w/ patient, physical exam, lab review, review of inpatient medication list Pain: abdominal pain, diffuse PO Intake: clears Voiding: gil catheter in place patient feeling a little better, still with abdominal pain but less severe no stools, no flatus, no vomiting reviewed labs, Cr improved to 2.6, K improved to 3.4, phos low at 1.4 Hb up to 8.7 blood pressure improved, no longer hypotensive, no pressors needed discussed case with Dr. Leal and Dr. Joseph Problem List Medical Problems: (1) Abdominal pain Status: Acute (2) Acute pancreatitis Status: Acute (3) Alcohol abuse Status: Acute (4) Alcohol intoxication Status: Acute (5) Anemia Status: Acute (6) Anemia Status: Acute (7) Biliary obstruction Status: Acute (8) C. difficile colitis Status: Acute (9) C. difficile diarrhea Status: Acute (10) Chest pain Status: Acute (11) Contusion of multiple sites Status: Acute (12) Dehydration Status: Acute (13) Dehydration Status: Acute (14) Encounter for smoking cessation counseling Status: Acute (15) Epigastric abdominal pain Status: Acute (16) Fall Status: Acute (17) Fall due to slipping on ice or snow Status: Acute (18) Fracture of left distal radius Status: Acute (19) Hypocalcemia Status: Acute (20) Hypomagnesemia Status: Acute (21) Hypomagnesemia Status: Acute (22) Hypotension Status: Acute (23) Lactic acidosis Status: Acute (24) Liver failure Status: Acute (25) Pancreatitis Status: Acute Review of Systems Constitutional: + weakness, + fatigue Abdomen: + pain, + constipation Neurologic: + weakness All Other Systems: Reviewed and Negative Medications Current Inpatient Medications Medications (Trade) Dose Ordered Sig/Razia Route Start Time Stop Time Status Last Admin Dose Admin Metronidazole 500 mg/Prmx 100 ml @ 100 mls/hr Q8H IV 06/27/17 18:00 07/07/17 17:59 06/28/17 08:45 100 MLS/HR Pantoprazole Sodium 40 mg/ Syringe 10 ml @ 5 mls/min BID IV 06/27/17 09:00 07/27/17 08:59 06/28/17 08:45 5 MLS/MIN Miscellaneous Information (Icu Protocol For Hyperglycemia) 1 ea PRN PRN N/A 06/27/17 09:00 06/29/17 08:59 Potassium Chloride 40 meq/ Sodium Chloride 1,020 ml @ 125 mls/hr Q8H10M IV 06/27/17 10:15 07/27/17 10:14 06/28/17 09:51 125 MLS/HR Thiamine HCl 100 mg/Syringe 10 ml @ 2 mls/min Q24H IV 06/28/17 11:00 07/28/17 10:59 06/28/17 08:47 2 MLS/MIN Folic Acid 1 mg/ Syringe 10 ml @ 5 mls/min Q24H IV 06/28/17 11:00 07/28/17 10:59 06/28/17 08:47 5 MLS/MIN Lorazepam (Ativan Inj) 1 mg ONE PRN IV 06/27/17 09:15 Ciprofloxacin (Consult) 1 ea UD PRN N/A 06/27/17 12:00 07/27/17 11:59 Ciprofloxacin/ Dextrose 400 mg/ Prmx 200 ml @ 100 mls/hr Q24H IV 06/27/17 13:00 07/07/17 12:59 06/27/17 15:33 100 MLS/HR Enteral Nutritional Formula (Boost Plus Vanilla) 1 can BID PO 06/27/17 21:00 07/27/17 20:59 Ondansetron HCl (Zofran Inj) 4 mg Q6H PRN IV 06/27/17 17:46 07/27/17 17:45 Potassium Phosphate 30 mmol/ Sodium Chloride 510 ml @ 88 mls/hr ONE ONCE IV 06/28/17 09:30 06/28/17 15:17 06/28/17 10:14 88 MLS/HR Fentanyl Citrate (Fentanyl Inj) 50 mcg Q3H PRN IV 06/28/17 10:45 07/11/17 11:14 Objective Vital Signs Date Time Temp Pulse Resp B/P (MAP) Pulse Ox O2 Delivery O2 Flow Rate FiO2 06/28/17 12:00 36.9 97 17 97/71 (80) 99 Nasal Cannula 2.0 06/28/17 12:00 100 Nasal Cannula 2.0 06/28/17 10:00 95 18 116/65 (82) 99 Nasal Cannula 2.0 06/28/17 08:00 100 Nasal Cannula 2.0 06/28/17 08:00 36.7 99 18 99/76 (84) 99 Room Air 2.0 06/28/17 08:00 Room Air 06/28/17 07:00 36.7 96 18 111/70 (68) 99 06/28/17 06:00 96 16 95/56 (69) 97 Room Air 06/28/17 06:00 96 16 95/56 (68) 97 06/28/17 05:00 101 18 105/63 (79) 95 06/28/17 04:00 Room Air 06/28/17 04:00 36.6 99 19 102/65 (77) 97 Room Air 06/28/17 04:00 99 19 102/65 (68) 97 06/28/17 03:00 102 14 103/66 (82) 95 06/28/17 02:00 99 12 85/53 (57) 95 06/28/17 02:00 99 12 85/53 (64) 95 Room Air 06/28/17 01:00 101 15 96 06/28/17 00:01 36.7 20 97/67 (77) 98 Room Air 06/28/17 00:01 98 18 98 06/27/17 23:59 Room Air 06/27/17 23:00 97 17 99/62 (66) 97 06/27/17 22:00 97 13 107/62 (83) 97 06/27/17 22:00 36.6 06/27/17 21:00 96 24 96/58 (60) 99 06/27/17 20:02 94 11 91/54 (65) 98 06/27/17 20:00 36.8 06/27/17 20:00 Room Air 06/27/17 19:00 90 15 89/58 (69) 99 06/27/17 18:14 36.6 06/27/17 18:00 95 96/60 (64) 98 06/27/17 17:04 91 88/54 (67) 100 06/27/17 16:00 Room Air 06/27/17 16:00 91 91/52 (65) 100 06/27/17 15:45 89 93/53 (67) 100 06/27/17 15:30 93 89/56 (61) 100 06/27/17 15:16 36.4 06/27/17 15:16 92 88/54 (66) 100 06/27/17 14:45 93 85/53 (58) 100 06/27/17 14:30 90 81/55 (63) 97 06/27/17 14:15 88 77/50 (59) 93 06/27/17 14:00 94 89/54 (63) 100 06/27/17 13:45 89 83/48 (52) 100 06/27/17 13:30 86 80/44 (52) 99 06/27/17 13:23 91 73/50 (56) 06/27/17 13:15 91 79/46 (49) Physical Exam General Appearance: WD/WN, no apparent distress Eyes: normal inspection, EOMI, sclerae normal ENT: normal ENT inspection, hearing grossly normal, pharynx normal Neck: supple, no adenopathy, no JVD, trachea midline Respiratory/Chest: chest non-tender, lungs clear, no respiratory distress, no accessory muscle use, + decreased breath sounds Cardiovascular: regular rate, rhythm, no edema, no gallop, no JVD, no murmur Abdomen: normal bowel sounds, soft, no organomegaly, + distended, + tenderness (diffuse, more intense in LLQ) Extremities: normal range of motion, non-tender, normal inspection, no pedal edema, no calf tenderness, normal capillary refill, pelvis stable Neurologic/Psychiatric: proj engineer II-XII nml as tested, no motor/sensory deficits, alert, normal mood/affect, oriented x 3 Skin: normal color, warm/dry, no rash Laboratory Results Last 24 Hours Test 06/27/17 16:17 06/27/17 16:43 06/27/17 21:05 06/27/17 23:47 White Blood Count 8.35 K/uL 9.05 K/uL Red Blood Count 2.43 M/uL 2.46 M/uL Hemoglobin 8.3 g/dL 8.2 g/dL Hematocrit 24.6 % 24.7 % Mean Corpuscular Volume 101.2 fL 100.4 fL Mean Corpuscular Hemoglobin 34.2 pg 33.3 pg Mean Corpuscular Hemoglobin Concent 33.7 g/dl 33.2 g/dl RDW Standard Deviation 75.6 fL 78.3 fL RDW Coefficient of Variation 20.7 % 21.8 % Platelet Count 160 K/uL 149 K/uL Mean Platelet Volume 11.1 fL 11.8 fL Nucleated RBC Absolute Count (auto) 0.09 K/uL 0.08 K/uL Nucleated Red Blood Cells % 1.1 % 0.9 % Sodium Level 134 mmol/L 135 mmol/L Potassium Level 2.5 mmol/L 3.2 mmol/L Chloride Level 100 mmol/L 103 mmol/L Carbon Dioxide Level 15 mmol/L 15 mmol/L Anion Gap 19.0 mmol/L 17.0 mmol/L Blood Urea Nitrogen 24 mg/dl 25 mg/dl Creatinine 3.08 mg/dl 2.95 mg/dl Est Creatinine Clear Calc Drug Dose 21.5 ml/min 22.5 ml/min Estimated GFR () 19.3 20.3 Estimated GFR (Non- 16.6 17.5 BUN/Creatinine Ratio 7.9 8.5 Random Glucose 72 mg/dl 95 mg/dl Lactic Acid Level 0.9 mmol/L Calcium Level 6.8 mg/dl 8.0 mg/dl Phosphorus Level 2.5 mg/dl Magnesium Level 1.1 mg/dl Total Bilirubin 9.0 mg/dl Aspartate Amino Transf (AST/SGOT) 119 U/L Alanine Aminotransferase (ALT/SGPT) 26 U/L Alkaline Phosphatase 354 U/L Total Protein 5.7 gm/dl Albumin 1.8 gm/dl Globulin 3.9 gm/dl Albumin/Globulin Ratio 0.5 Ionized Calcium 0.85 mmol/l Bedside Glucose 83 mg/dl Test 06/28/17 05:31 06/28/17 05:59 White Blood Count 9.80 K/uL Red Blood Count 2.57 M/uL Hemoglobin 8.7 g/dL Hematocrit 25.8 % Mean Corpuscular Volume 100.4 fL Mean Corpuscular Hemoglobin 33.9 pg Mean Corpuscular Hemoglobin Concent 33.7 g/dl Platelet Count 166 K/uL Mean Platelet Volume 10.4 fL Neutrophils (%) (Auto) 79.6 % Lymphocytes (%) (Auto) 9.2 % Monocytes (%) (Auto) 9.2 % Eosinophils (%) (Auto) 1.2 % Basophils (%) (Auto) 0.2 % Neutrophils # (Auto) 7.80 K/uL Lymphocytes # (Auto) 0.90 K/uL Monocytes # (Auto) 0.90 K/uL Eosinophils # (Auto) 0.12 K/uL Basophils # (Auto) 0.02 K/uL RDW Standard Deviation 82.5 fL RDW Coefficient of Variation 23.0 % Immature Granulocyte % (Auto) 0.6 % Immature Granulocyte # (Auto) 0.06 K/uL Nucleated RBC Absolute Count (auto) 0.08 K/uL Nucleated Red Blood Cells % 0.8 % Giant Platelets 1+ Hypochromasia PRESENT Anisocytosis PRESENT Macrocytosis PRESENT Pappenheimer Bodies 1+ Prothrombin Time 13.7 SECONDS Prothromb Time International Ratio 1.3 Activated Partial Thromboplast Time 30.1 SECONDS Partial Thromboplastin Ratio 1.2 Sodium Level 137 mmol/L Potassium Level 3.4 mmol/L Chloride Level 107 mmol/L Carbon Dioxide Level 14 mmol/L Anion Gap 16.0 mmol/L Blood Urea Nitrogen 25 mg/dl Creatinine 2.62 mg/dl Est Creatinine Clear Calc Drug Dose 25.3 ml/min Estimated GFR () 23.4 Estimated GFR (Non- 20.2 BUN/Creatinine Ratio 9.4 Random Glucose 70 mg/dl Lactic Acid Level 0.3 mmol/L Calcium Level 7.7 mg/dl Phosphorus Level 1.4 mg/dl Magnesium Level 1.5 mg/dl Total Bilirubin 8.9 mg/dl Direct Bilirubin 7.1 mg/dl Aspartate Amino Transf (AST/SGOT) 105 U/L Alanine Aminotransferase (ALT/SGPT) 26 U/L Alkaline Phosphatase 333 U/L Total Protein 5.4 gm/dl Albumin 1.8 gm/dl Bedside Glucose 75 mg/dl Assessment and Plan 52 yo female with history of alcohol abuse, cirrhosis, c diff colitis who presented with weakness, hypotension, bloody diarrhea, KEVIN, acidosis - Circulatory shock: would appear to be hypovolemic with bleeding, no clear evidence of bacterial infection at this time given 3L NSS in the ED, transfused two units PRBC in ICU no longer hypotensive, never required pressors improved urine output, continue to follow mentating clearly lactic acid 0.3 - GI bleed, suspected ischemic colitis: story of bright red blood once a day for 3 days and some clots Protonix BID, stopped octreotide drip GI following Hb up at 8.7, continue to monitor, no signs of active bleeding still with diffuse abdominal pain and distension, + bowel sounds - Acute renal failure with metabolic acidosis Cr up to 3.5 at admission, improved to 2.6 today, increased urine output likely combination of blood loss, dehydration and hypotension continue IV fluids at 125cc/hr, check BMP in the AM - Hypokalemia: improving, up to 3.4, K supplement in IV fluids, repeat tomorrow - Hypophosphatemia: low at 1.4, will give IV replacement - Alcoholism, last drink was two days prior to admission place on withdrawal protocol, had some tremors on admission, resolved today thiamine and folate daily DVT prophylaxis: SCD safe for transfer to tele today
--- NOTE | 2017-06-28 17:38 | Critical Care Progress Note ---
Critical Care Progress Note Date of Service Jun 28, 2017. Attending Dr. Huerta Subjective OOB to chair No further bleeding Still c/o diffuse abdominal pain Objective General: NAD, no distress Heent: NC/AT, dry oral mucosa, icteric sclerae, pale conjunctivae Lungs: clear to auscultation bilaterally CVS:S1S2 regular, no rub, no murmur Abdomen: Diffuse tenderness, significant guarding Extremities: No edema SMALL ANIMAL CARETAKER:AAO x 3, no motor deficit, no tremors Assessment & Plan Severe sepsis secondary to colitis with multiorgan failure Likely Cdiff colitis, possible ischemic component GI bleeding Liver failure Acute kidney injury Chronic lung nodules Plan: SMALL ANIMAL CARETAKER: Ammonia level normal. No signs of alcohol withdrawal for the time being, low threshold to initiate lorazepam Thiamine Fentanyl prn for pain CVS: Continue crystalloid infusion HD stable Pulmonary: Has known lung nodules for years, seem stable over time No active issues GI: Acute liver failure, alcoholic hepatitis, possible ischemic hepatitis as well Monitor liver function Colitis seems recurrent. On IV metronidazole. May require PO vanco on a more chronic basis Initiated diet GI consult noted ID: Continue IV metronidazole Renal/metabolic: KEVIN secondary to severe dehydration. FeNa is 0.2%, urine sodium 15 indicating pre-renal cause for KEVIN Aggressive lytes supplementation Heme: H/h improved post transfusion. No evidence of ongoing bleeding DVT prophylaxis: SCDs, no anticoagulation secondary to bleeding Critical care time spent with patient, reviewing the chart, greater than 25 minutes Transferred to floor today, will sign off Data Medications: Current Inpatient Medications Medications (Trade) Dose Ordered Sig/Razia Route Start Time Stop Time Status Last Admin Dose Admin Metronidazole 500 mg/Prmx 100 ml @ 100 mls/hr Q8H IV 06/27/17 18:00 07/07/17 17:59 06/28/17 08:45 100 MLS/HR Pantoprazole Sodium 40 mg/ Syringe 10 ml @ 5 mls/min BID IV 06/27/17 09:00 07/27/17 08:59 06/28/17 08:45 5 MLS/MIN Miscellaneous Information (Icu Protocol For Hyperglycemia) 1 ea PRN PRN N/A 06/27/17 09:00 06/29/17 08:59 Potassium Chloride 40 meq/ Sodium Chloride 1,020 ml @ 125 mls/hr Q8H10M IV 06/27/17 10:15 07/27/17 10:14 06/28/17 09:51 125 MLS/HR Thiamine HCl 100 mg/Syringe 10 ml @ 2 mls/min Q24H IV 06/28/17 11:00 07/28/17 10:59 06/28/17 08:47 2 MLS/MIN Folic Acid 1 mg/ Syringe 10 ml @ 5 mls/min Q24H IV 06/28/17 11:00 07/28/17 10:59 06/28/17 08:47 5 MLS/MIN Lorazepam (Ativan Inj) 1 mg ONE PRN IV 06/27/17 09:15 Ciprofloxacin (Consult) 1 ea UD PRN N/A 06/27/17 12:00 07/27/17 11:59 Ciprofloxacin/ Dextrose 400 mg/ Prmx 200 ml @ 100 mls/hr Q24H IV 06/27/17 13:00 07/07/17 12:59 06/28/17 13:05 100 MLS/HR Enteral Nutritional Formula (Boost Plus Vanilla) 1 can BID PO 06/27/17 21:00 07/27/17 20:59 Ondansetron HCl (Zofran Inj) 4 mg Q6H PRN IV 06/27/17 17:46 07/27/17 17:45 Fentanyl Citrate (Fentanyl Inj) 50 mcg Q3H PRN IV 06/28/17 10:45 07/11/17 11:14 06/28/17 16:25 50 MCG I & O: 24-Hour Column 06/29/17 08:00 Intake Total 1696 ml Output Total 350 ml Balance 1346 ml Vital Signs: Date Time Temp Pulse Resp B/P (MAP) Pulse Ox O2 Delivery O2 Flow Rate FiO2 06/28/17 16:20 99 104/73 (83) 06/28/17 16:00 96 Room Air 06/28/17 15:33 36.5 91 17 82/53 (63) 96 Room Air 06/28/17 15:27 36.9 94 18 97 06/28/17 14:00 36.9 94 18 93/65 (74) 97 Room Air 06/28/17 12:00 36.9 97 17 97/71 (80) 99 Nasal Cannula 2.0 06/28/17 12:00 100 Nasal Cannula 2.0 06/28/17 10:00 95 18 116/65 (82) 99 Nasal Cannula 2.0 06/28/17 08:00 100 Nasal Cannula 2.0 06/28/17 08:00 36.7 99 18 99/76 (84) 99 Room Air 2.0 06/28/17 08:00 Room Air 06/28/17 07:00 36.7 96 18 111/70 (68) 99 06/28/17 06:00 96 16 95/56 (69) 97 Room Air 06/28/17 06:00 96 16 95/56 (68) 97 06/28/17 05:00 101 18 105/63 (79) 95 06/28/17 04:00 Room Air 06/28/17 04:00 36.6 99 19 102/65 (77) 97 Room Air 06/28/17 04:00 99 19 102/65 (68) 97 06/28/17 03:00 102 14 103/66 (82) 95 06/28/17 02:00 99 12 85/53 (57) 95 06/28/17 02:00 99 12 85/53 (64) 95 Room Air 06/28/17 01:00 101 15 96 06/28/17 00:01 36.7 20 97/67 (77) 98 Room Air 06/28/17 00:01 98 18 98 06/27/17 23:59 Room Air 06/27/17 23:00 97 17 99/62 (66) 97 06/27/17 22:00 97 13 107/62 (83) 97 06/27/17 22:00 36.6 06/27/17 21:00 96 24 96/58 (60) 99 06/27/17 20:02 94 11 91/54 (65) 98 06/27/17 20:00 36.8 06/27/17 20:00 Room Air 06/27/17 19:00 90 15 89/58 (69) 99 06/27/17 18:14 36.6 06/27/17 18:00 95 96/60 (64) 98 Laboratory Results: Last 24 Hours Test 06/27/17 21:05 06/27/17 23:47 06/28/17 05:31 06/28/17 05:59 White Blood Count 9.05 K/uL 9.80 K/uL Red Blood Count 2.46 M/uL 2.57 M/uL Hemoglobin 8.2 g/dL 8.7 g/dL Hematocrit 24.7 % 25.8 % Mean Corpuscular Volume 100.4 fL 100.4 fL Mean Corpuscular Hemoglobin 33.3 pg 33.9 pg Mean Corpuscular Hemoglobin Concent 33.2 g/dl 33.7 g/dl RDW Standard Deviation 78.3 fL 82.5 fL RDW Coefficient of Variation 21.8 % 23.0 % Platelet Count 149 K/uL 166 K/uL Mean Platelet Volume 11.8 fL 10.4 fL Nucleated RBC Absolute Count (auto) 0.08 K/uL 0.08 K/uL Nucleated Red Blood Cells % 0.9 % 0.8 % Sodium Level 135 mmol/L 137 mmol/L Potassium Level 3.2 mmol/L 3.4 mmol/L Chloride Level 103 mmol/L 107 mmol/L Carbon Dioxide Level 15 mmol/L 14 mmol/L Anion Gap 17.0 mmol/L 16.0 mmol/L Blood Urea Nitrogen 25 mg/dl 25 mg/dl Creatinine 2.95 mg/dl 2.62 mg/dl Est Creatinine Clear Calc Drug Dose 22.5 ml/min 25.3 ml/min Estimated GFR () 20.3 23.4 Estimated GFR (Non- 17.5 20.2 BUN/Creatinine Ratio 8.5 9.4 Random Glucose 95 mg/dl 70 mg/dl Calcium Level 8.0 mg/dl 7.7 mg/dl Bedside Glucose 83 mg/dl 75 mg/dl Neutrophils (%) (Auto) 79.6 % Lymphocytes (%) (Auto) 9.2 % Monocytes (%) (Auto) 9.2 % Eosinophils (%) (Auto) 1.2 % Basophils (%) (Auto) 0.2 % Neutrophils # (Auto) 7.80 K/uL Lymphocytes # (Auto) 0.90 K/uL Monocytes # (Auto) 0.90 K/uL Eosinophils # (Auto) 0.12 K/uL Basophils # (Auto) 0.02 K/uL Immature Granulocyte % (Auto) 0.6 % Immature Granulocyte # (Auto) 0.06 K/uL Giant Platelets 1+ Hypochromasia PRESENT Anisocytosis PRESENT Macrocytosis PRESENT Pappenheimer Bodies 1+ Prothrombin Time 13.7 SECONDS Prothromb Time International Ratio 1.3 Activated Partial Thromboplast Time 30.1 SECONDS Partial Thromboplastin Ratio 1.2 Lactic Acid Level 0.3 mmol/L Phosphorus Level 1.4 mg/dl Magnesium Level 1.5 mg/dl Total Bilirubin 8.9 mg/dl Direct Bilirubin 7.1 mg/dl Aspartate Amino Transf (AST/SGOT) 105 U/L Alanine Aminotransferase (ALT/SGPT) 26 U/L Alkaline Phosphatase 333 U/L Total Protein 5.4 gm/dl Albumin 1.8 gm/dl
--- NOTE | 2017-06-28 18:01 | PROGRESS NOTE ---
DATE: 06/28/2017 The patient continues to have abdominal pain. She was moved from the ICU to the step down Unit. Her vital signs show a heart rate of 99. She is afebrile, blood pressure is 104/73. She has had no stools recorded for the last 48 hours. Laboratory show white count is normal at 9.8, hemoglobin 8.7 after 2 units of blood transfusion. Chemistries show her phosphorus is low at 1.4, albumin is also low at 1.8. PHYSICAL EXAMINATION: GENERAL: Her abdomen is diffusely tender and somewhat distended. IMPRESSION: The patient most likely has ischemic colon. Her abdomen continues to remain tender. I plan on scheduling a mesenteric Doppler to assess the blood flow to her intestinal structures.
[2017-06-28 20:15] LABS: ALBUMIN 1.9 gm/dl (3.4-5.0); CALCIUM 7.7 mg/dl (8.5-10.1); CREATININE 2.1 mg/dl (0.60-1.20); PHOSPHORUS 1.9 mg/dl (2.5-4.9); TOTAL PROTEIN 5.7 gm/dl (6.4-8.2)
[2017-06-29] VITALS (9 sets, daily range): BP systolic 91–111; BP diastolic 62–79; PULSE 67–105; TEMP 36.4–37; O2SAT 92–96
[2017-06-29] MEDS: POTASSIUM CHLORIDE INJ 40 MEQ in SODIUM CHLORIDE 0.9% 1000ML 1,000 ML IV SCH ×2 (02:55→21:28)
[2017-06-29] MEDS: METRONIDAZOLE / NSS 500 MG in PREMIXED NSS 100 ML IV SCH ×2 (02:58→17:42)
[2017-06-29] MEDS: FENTANYL CITRATE INJ 50 MCG/1 ML 2 ML VIAL IV PRN ×2 (02:58→06:02)
[2017-06-29 06:36] LABS: BASO % 0.5 %; BASO ABS # 0.05 K/uL (0-0.2); EOS % 1.3 %; EOS ABS # 0.13 K/uL (0-0.5); HEMATOCRIT 25.9 % (37-47); HEMOGLOBIN 8.8 g/dL (12.0-16.0); IG# 0.09 K/uL (0.00-0.02); LYMPH % 10.1 %; MEAN PLATELET VOLUME 10.8 fL (7.4-10.4); MONO % 8.9 %; MONO ABS # 0.88 K/uL (0.11-0.59); NEUT % 78.3 %; NEUT ABS # 7.79 K/uL (1.4-6.5); PLATELET COUNT 160 K/uL (130-400); RED CELL DISTRIBUTION WIDTH CV 23.8 % (11.5-14.5); RED CELL DISTRIBUTION WIDTH SD 84.4 fL (36.4-46.3); WHITE BLOOD COUNT 9.94 K/uL (4.8-10.8)
[2017-06-29 06:53] LABS: INR 1.3 (0.9-1.1); PTT PATIENT 29.5 SECONDS (21.0-31.0)
[2017-06-29 07:15] LABS: ALBUMIN 1.8 gm/dl (3.4-5.0); CALCIUM 7.6 mg/dl (8.5-10.1); CREATININE 1.56 mg/dl (0.60-1.20); POTASSIUM 3.8 mmol/L (3.5-5.1)
[2017-06-29 07:23] LABS: PHOSPHORUS 0.4 mg/dl (2.5-4.9); TOTAL PROTEIN 5.3 gm/dl (6.4-8.2)
[2017-06-29] MEDS ORDERED: POTASSIUM PHOS 3 MMOL/1 ML INFUSION IV STA (07:26)
[2017-06-29] MEDS ORDERED: POTASSIUM PHOSPHATE INJ 30 MMOL in SODIUM CHLORIDE 0.9% 500ML 500 ML IV ONE (08:00)
[2017-06-29] MEDS ORDERED: MAGNESIUM SULFATE 1GM / D5W 1 GM in PREMIXED IN D5W 100 ML IV ONE (08:00)
[2017-06-29] MEDS: BOOST PLUS VANILLA PO SCH ×2 (09:00→21:00)
--- NOTE | 2017-06-29 09:20 | Progress Note ---
Subjective Date of Service: Jun 29, 2017. Subjective Pt evaluation today including: conversation w/ patient, physical exam, lab review, review of studies, conversation w/ qm consultant, review of inpatient medication list Pain: still with 10 out of 10 abdominal pain PO Intake: NPO for test, otherwise clears Voiding: gil catheter in place patient asking for pain medications, discussed changing to Dilaudid for longer effect she is hungry and thirsty, NPO for mesenteric dopplers still with abdominal pain and distension had some flatus this AM and small formed stool, some blood no chest pain, no dyspnea labs reviewed, Cr down to 1.5, phos really low at 0.4, K stable, magnesium low at 1.6 Hb stable at 8.8, up slightly from 8.7 yesterday bilirubin still elevated at 8 discussed the case with Dr. Joseph, need to determine mesenteric blood flow Problem List Medical Problems: (1) Abdominal pain Status: Acute (2) Acute pancreatitis Status: Acute (3) Alcohol abuse Status: Acute (4) Alcohol intoxication Status: Acute (5) Anemia Status: Acute (6) Anemia Status: Acute (7) Biliary obstruction Status: Acute (8) C. difficile colitis Status: Acute (9) C. difficile diarrhea Status: Acute (10) Chest pain Status: Acute (11) Contusion of multiple sites Status: Acute (12) Dehydration Status: Acute (13) Dehydration Status: Acute (14) Encounter for smoking cessation counseling Status: Acute (15) Epigastric abdominal pain Status: Acute (16) Fall Status: Acute (17) Fall due to slipping on ice or snow Status: Acute (18) Fracture of left distal radius Status: Acute (19) Hypocalcemia Status: Acute (20) Hypomagnesemia Status: Acute (21) Hypomagnesemia Status: Acute (22) Hypotension Status: Acute (23) Lactic acidosis Status: Acute (24) Liver failure Status: Acute (25) Pancreatitis Status: Acute Review of Systems Constitutional: + weakness, + fatigue Abdomen: + pain (severe), + GI bleeding, + problem reported (distended), No nausea, No vomiting, No diarrhea, No constipation Neurologic: + weakness Psychiatric: + depression symptoms All Other Systems: Reviewed and Negative Medications Current Inpatient Medications Medications (Trade) Dose Ordered Sig/Razia Route Start Time Stop Time Status Last Admin Dose Admin Metronidazole 500 mg/Prmx 100 ml @ 100 mls/hr Q8H IV 06/27/17 18:00 07/07/17 17:59 06/29/17 02:58 100 MLS/HR Pantoprazole Sodium 40 mg/ Syringe 10 ml @ 5 mls/min BID IV 06/27/17 09:00 07/27/17 08:59 06/28/17 21:31 5 MLS/MIN Potassium Chloride 40 meq/ Sodium Chloride 1,020 ml @ 75 mls/hr [id number] IV 06/27/17 10:15 07/29/17 10:14 06/29/17 02:55 125 MLS/HR Thiamine HCl 100 mg/Syringe 10 ml @ 2 mls/min Q24H IV 06/28/17 11:00 07/28/17 10:59 06/28/17 08:47 2 MLS/MIN Folic Acid 1 mg/ Syringe 10 ml @ 5 mls/min Q24H IV 06/28/17 11:00 07/28/17 10:59 06/28/17 08:47 5 MLS/MIN Lorazepam (Ativan Inj) 1 mg ONE PRN IV 06/27/17 09:15 Ciprofloxacin (Consult) 1 ea UD PRN N/A 06/27/17 12:00 07/27/17 11:59 Enteral Nutritional Formula (Boost Plus Vanilla) 1 can BID PO 06/27/17 21:00 07/27/17 20:59 06/28/17 20:10 1 CAN Ondansetron HCl (Zofran Inj) 4 mg Q6H PRN IV 06/27/17 17:46 07/27/17 17:45 Potassium Phosphate 30 mmol/ Sodium Chloride 510 ml @ 88 mls/hr NOW ONCE IV 06/29/17 08:00 06/29/17 13:47 Ciprofloxacin/ Dextrose 400 mg/ Prmx 200 ml @ 100 mls/hr Q12H IV 06/30/17 09:00 07/07/17 12:59 Hydromorphone HCl (Dilaudid Inj) 1 mg Q3HWA PRN IV 06/29/17 09:15 07/13/17 09:14 UNV Objective Vital Signs Date Time Temp Pulse Resp B/P (MAP) Pulse Ox O2 Delivery O2 Flow Rate FiO2 06/29/17 07:48 36.6 105 18 105/71 (82) 96 Room Air 06/29/17 04:00 Room Air 06/29/17 03:00 36.6 101 16 98/63 (75) 95 Room Air 06/29/17 00:00 Room Air 06/28/17 23:49 111/78 (89) 06/28/17 23:05 36.7 94 16 94/61 (72) 96 Room Air 06/28/17 20:23 36.6 91 18 93/62 (72) 96 Room Air 06/28/17 20:00 95 Room Air 06/28/17 16:20 99 104/73 (83) 06/28/17 16:00 96 Room Air 06/28/17 15:33 36.5 91 17 82/53 (63) 96 Room Air 06/28/17 15:27 36.9 94 18 97 06/28/17 14:00 36.9 94 18 93/65 (74) 97 Room Air 06/28/17 12:00 36.9 97 17 97/71 (80) 99 Nasal Cannula 2.0 06/28/17 12:00 100 Nasal Cannula 2.0 06/28/17 10:00 95 18 116/65 (82) 99 Nasal Cannula 2.0 Physical Exam General Appearance: WD/WN, no apparent distress Eyes: normal inspection, EOMI, + pertinent finding (icterus) ENT: normal ENT inspection, hearing grossly normal, pharynx normal Neck: supple, no adenopathy, no JVD, trachea midline Respiratory/Chest: chest non-tender, lungs clear, no respiratory distress, no accessory muscle use, + decreased breath sounds Cardiovascular: no edema, no gallop, no JVD, no murmur, + tachycardia Abdomen: normal bowel sounds, soft, no organomegaly, + distended, + tenderness (difuse) Extremities: normal range of motion, non-tender, normal inspection, no pedal edema, no calf tenderness, pelvis stable Neurologic/Psychiatric: 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, no motor/sensory deficits, alert, normal mood/affect, oriented x 3 Skin: warm/dry, no rash, + jaundice Lymphatic: no adenopathy Laboratory Results Last 24 Hours Test 06/28/17 11:58 06/28/17 18:28 06/29/17 06:02 Bedside Glucose 99 mg/dl Sodium Level 138 mmol/L 142 mmol/L Potassium Level 4.0 mmol/L 3.8 mmol/L Chloride Level 110 mmol/L 115 mmol/L Carbon Dioxide Level 16 mmol/L 17 mmol/L Anion Gap 12.0 mmol/L 10.0 mmol/L Blood Urea Nitrogen 22 mg/dl 18 mg/dl Creatinine 2.10 mg/dl 1.56 mg/dl Est Creatinine Clear Calc Drug Dose 31.6 ml/min 42.5 ml/min Estimated GFR () 30.6 43.8 Estimated GFR (Non- 26.4 37.8 BUN/Creatinine Ratio 10.4 11.7 Random Glucose 104 mg/dl 104 mg/dl Calcium Level 7.7 mg/dl 7.6 mg/dl Phosphorus Level 1.9 mg/dl 0.4 mg/dl Magnesium Level 2.0 mg/dl 1.6 mg/dl Total Bilirubin 9.8 mg/dl 9.3 mg/dl Aspartate Amino Transf (AST/SGOT) 103 U/L 85 U/L Alanine Aminotransferase (ALT/SGPT) 28 U/L 25 U/L Alkaline Phosphatase 354 U/L 319 U/L Total Protein 5.7 gm/dl 5.3 gm/dl Albumin 1.9 gm/dl 1.8 gm/dl Globulin 3.8 gm/dl Albumin/Globulin Ratio 0.5 White Blood Count 9.94 K/uL Red Blood Count 2.59 M/uL Hemoglobin 8.8 g/dL Hematocrit 25.9 % Mean Corpuscular Volume 100.0 fL Mean Corpuscular Hemoglobin 34.0 pg Mean Corpuscular Hemoglobin Concent 34.0 g/dl Platelet Count 160 K/uL Mean Platelet Volume 10.8 fL Neutrophils (%) (Auto) 78.3 % Lymphocytes (%) (Auto) 10.1 % Monocytes (%) (Auto) 8.9 % Eosinophils (%) (Auto) 1.3 % Basophils (%) (Auto) 0.5 % Neutrophils # (Auto) 7.79 K/uL Lymphocytes # (Auto) 1.00 K/uL Monocytes # (Auto) 0.88 K/uL Eosinophils # (Auto) 0.13 K/uL Basophils # (Auto) 0.05 K/uL RDW Standard Deviation 84.4 fL RDW Coefficient of Variation 23.8 % Immature Granulocyte % (Auto) 0.9 % Immature Granulocyte # (Auto) 0.09 K/uL Toxic Vacuolation 1+ Basophilic Stippling OCCASIONAL Anisocytosis PRESENT Pappenheimer Bodies 1+ Prothrombin Time 13.7 SECONDS Prothromb Time International Ratio 1.3 Activated Partial Thromboplast Time 29.5 SECONDS Partial Thromboplastin Ratio 1.1 Direct Bilirubin 7.6 mg/dl Assessment and Plan 52 yo female with history of alcohol abuse, cirrhosis, c diff colitis who presented with weakness, hypotension, bloody diarrhea, KEVIN, acidosis - Circulatory shock: would appear to be hypovolemic with bleeding, no clear evidence of bacterial infection at this time given 3L NSS in the ED, transfused two units PRBC in ICU normotensive for 48 hours, never required pressors improved urine output, continue to follow mentating clearly lactic acid 0.3 yesterday, shock resolved - GI bleed, suspected ischemic colitis: story of bright red blood once a day for 3 days and some clots Protonix BID, stopped octreotide drip GI following Hb up at 8.8 today, continue to monitor, had a little blood with BM today still with diffuse abdominal pain and distension, + bowel sounds going to get mesenteric dopplers today, will follow up and discuss with Dr. Joseph - Acute renal failure with metabolic acidosis Cr up to 3.5 at admission, improved to 1.56 today, was 2.5 yesterday, adequate urine output via gil likely combination of blood loss, dehydration and hypotension reduced IV fluids to 75cc/hr this AM going to repeat BMP this afternoon for electrolytes - Hypokalemia: resolved, 3.8 this AM, continue to monitor, KCl in maintenance fluids - Hypophosphatemia: was 1.8 yesterday in afternoon with replacement, down to 0.4 this morning? 30mmol of KPhos ordered, will repeat level at 1300 - Alcoholism, last drink was two days prior to admission place on withdrawal protocol, had some tremors on admission, resolved for time being thiamine and folate daily no signs of DT's DVT prophylaxis: SCD follow up mesenteric dopplers, repeat BMP, Mg, Phos at 1300
[2017-06-29] MEDS: PANTOprazole INJ 40 MG in SYRINGE 0 ML IV SCH ×2 (09:26→21:26)
[2017-06-29] MEDS: HYDROmorphone INJ 1 MG/ML SYR IV PRN ×4 (09:33→22:09)
--- NOTE | 2017-06-29 12:07 | DIAGNOSTIC IMAGING REPORT ---
DUPLEX MESENTERIC CLINICAL HISTORY: ischemic colon colitis TECHNIQUE: Doppler ultrasound COMPARISON STUDY: None FINDINGS: Near nondiagnostic study due to patient body habitus, inability to cooperate, as well as considerable bowel content and air. Flow is confirmed within this. Mesenteric artery as proximal and mid aspect. There is no definite is not obtainable. IMPRESSION: Nondiagnostic exam due to body habitus and patient's ability to cooperate,as well as overlying bowel content The above report was generated using voice recognition software. It may contain grammatical, syntax or spelling errors. Electronically signed by: Bart Kay M.D. 06/29/2017 12:06 PM Dictated Date/Time: 06/29/2017 12:04 PM
[2017-06-29] MEDS: FoLIC ACID INJ 1 MG in SYRINGE 9.8 ML IV SCH (12:39)
[2017-06-29] MEDS: THIAMINE HCL INJ 100 MG in SYRINGE 9 ML IV SCH (12:39)
[2017-06-29] MEDS ORDERED: SODIUM CHLORIDE 0.9% 1000ML 1,000 ML IV SCH (12:40)
[2017-06-29 13:20] LABS: CALCIUM 7.9 mg/dl (8.5-10.1); CREATININE 1.45 mg/dl (0.60-1.20); POTASSIUM 4.2 mmol/L (3.5-5.1)
[2017-06-29 13:34] LABS: PHOSPHORUS 1.4 mg/dl (2.5-4.9)
[2017-06-29] MEDS ORDERED: DiphenhydrAMINE HCL 50 MG/ML VIAL IV STA (13:51)
[2017-06-29] MEDS ORDERED: OPTIRAY 320 IV PRN (14:00)
[2017-06-29] MEDS ORDERED: METHYLPREDNISOLONE IV 40 MG in SYRINGE 0 ML IV ONE (14:30)
--- NOTE | 2017-06-29 17:39 | PROGRESS NOTE ---
DATE: 06/29/2017 SUBJECTIVE: The patient appears to be a little bit more alert today, still having some abdominal pain but less than yesterday. OBJECTIVE: VITAL SIGNS: Blood pressure is 105/71, pulse 105, temperature is 36.6. Room air saturation 96%. She had 4 small bowel movements today. She had somewhat a little bit of blood. Despite this, her hemoglobin has remained stable and actually has gone up a little bit to 8.8. White count is normal at 9.94. Blood cultures are negative. C. diff negative. Stool cultures also negative. Fecal leukocyte smear showed no fecal leukocytes. She did have a colonoscopy almost exactly 2 years ago on 06/30/[address] Giraldo. Other than hemorrhoids, there were no other abnormalities found. He did random biopsies for microscopic colitis which were negative. Today, her mesenteric ultrasound was not successful due to overlying bowel gas and a CT angiogram has been ordered. 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 Currently, she very likely has mesenteric ischemia with ischemic bowel. The treatment for this is supportive care which she is getting at this time. We will continue to follow her during her hospital stay.
--- NOTE | 2017-06-29 21:33 | DIAGNOSTIC IMAGING REPORT ---
CT ANGIO ABD/PELVIS WITH CONTRAST CT DOSE: 1107.39 mGy.cm CLINICAL HISTORY: Ischemic colitis TECHNIQUE: The patient was scanned in a dynamic helical fashion during intravenous administration of 115 cc of Optiray 320. MIP imaging was performed. A dose lowering technique was utilized adhering to the principles of ALARA. COMPARISON STUDY: Noncontrast study dated 06/27/2017 FINDINGS: Visualized portions the lung bases reveal multifocal groundglass pulmonary opacities. There are small bilateral pleural effusions right greater than left. There is severe hepatic steatosis. There is a stable 13 mm lesion within the right lobe. This could represent focal fatty sparing although the lesion is indeterminate. There is a second hyperdense lesion within the left lobe. This was not present on the prior study. This is therefore unlikely to represent a neoplastic process.. The liver is enlarged. The gallbladder surgically absent. No splenic masses are visualized. No adrenal masses are visualized. No pancreatic masses are visualized. There are no solid renal masses. There is no hydronephrosis. There are no transition zones indicate bowel obstruction. There is no acute diverticulitis. There is scattered colonic air-fluid levels. There is prominence of mucosal fat within the right colon. This could indicate chronic inflammatory bowel disease. There are few scattered colonic diverticula. There are no findings to indicate acute diverticulitis. There is a Kovacs catheter. There is trace free pelvic fluid. There is diffuse body wall edema. There is no free intraperitoneal air. There is no evidence of abdominal aortic aneurysm or dissection. There is no evidence of renal artery stenosis. The inferior mesenteric artery is patent. 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 IMPRESSION: 1. 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 No evidence of renal artery stenosis. No evidence of superior mesenteric artery stenosis 3. No evidence of aortic aneurysm or dissection 4. Severe hepatic steatosis. Indeterminate hypodense hepatic lesions possibly representing focal fatty sparing 5. Small bilateral pleural effusions and bibasal groundglass pulmonary opacities 6. No evidence of bowel obstruction. No evidence of free air. 7. Small amount of free pelvic fluid. Diffuse body wall edema. Electronically signed by: Ramon Dominique M.D. 06/29/2017 9:32 PM Dictated Date/Time: 06/29/2017 9:23 PM
[2017-06-30] VITALS (9 sets, daily range): BP systolic 72–94; BP diastolic 47–65; PULSE 95–99; TEMP 36.3–36.7; O2SAT 90–95
[2017-06-30] MEDS: METRONIDAZOLE / NSS 500 MG in PREMIXED NSS 100 ML IV SCH ×3 (01:49→19:39)
[2017-06-30 07:19] LABS: BASO % 0.2 %; BASO ABS # 0.03 K/uL (0-0.2); EOS % 0.1 %; EOS ABS # 0.01 K/uL (0-0.5); HEMATOCRIT 28.7 % (37-47); HEMOGLOBIN 9.5 g/dL (12.0-16.0); IG# 0.23 K/uL (0.00-0.02); LYMPH % 7.8 %; LYMPH ABS # 1.22 K/uL (1.2-3.4); MEAN CELL VOLUME 102.5 fL (80-100); MEAN CORPUSCULAR HEMOGLOBIN 33.9 pg (25-34); MEAN CORPUSCULAR HGB CONC 33.1 g/dl (32-36); MEAN PLATELET VOLUME 10.9 fL (7.4-10.4); MONO % 5.7 %; MONO ABS # 0.89 K/uL (0.11-0.59); NEUT % 84.7 %; PLATELET COUNT 169 K/uL (130-400); RED CELL DISTRIBUTION WIDTH CV 24.2 % (11.5-14.5); RED CELL DISTRIBUTION WIDTH SD 88.9 fL (36.4-46.3); WHITE BLOOD COUNT 15.58 K/uL (4.8-10.8)
[2017-06-30 07:28] LABS: INR 1.5 (0.9-1.1); PTT PATIENT 26.8 SECONDS (21.0-31.0)
[2017-06-30 07:47] LABS: ALBUMIN 1.8 gm/dl (3.4-5.0); CALCIUM 7.2 mg/dl (8.5-10.1); CREATININE 1.31 mg/dl (0.60-1.20); POTASSIUM 4.6 mmol/L (3.5-5.1)
[2017-06-30 08:01] LABS: PHOSPHORUS 1.4 mg/dl (2.5-4.9); TOTAL PROTEIN 5.8 gm/dl (6.4-8.2)
[2017-06-30] MEDS: CIPROFLOXACIN 400MG / D5W IV SCH ×2 (08:09→21:45)
[2017-06-30] MEDS: PANTOprazole INJ 40 MG in SYRINGE 0 ML IV SCH ×2 (08:09→19:32)
--- NOTE | 2017-06-30 08:41 | Surgery Consultation ---
Consultation Date of Service Jun 30, 2017. Chief Complaint Bleeding per rectum and abd pain History of Present Illness The patient is a 52 year old female who started having abd pain she claims about three weeks ago. She presented to the hospital with a three day history of blood per rectum. She claims to have "slight" abdominal pain before this all started. She claims that a "slight" pain would come on after she ate and last all day. She claims to only eat "slight" amounts of food. The pain would not go away between meals but rather she would continue to have "slight" pain. She did not eat frequent meals and she claims her weight has not significantly changed. She does have alcoholic cirrhosis. CT scan done at time of admission showed thickening of the bowel wall of the sigmoid colon as well as the ascending colon. 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 She denies any claudication of her lower extremities. Vitals Vital Signs Past 12 Hours Date Time Temp Pulse Resp B/P (MAP) Pulse Ox O2 Delivery O2 Flow Rate FiO2 06/30/17 07:25 36.4 96 20 94/62 (73) 91 Room Air 06/30/17 04:00 Room Air 06/30/17 03:05 36.7 95 18 94/64 (74) 95 Room Air 06/30/17 00:00 Room Air 06/29/17 23:07 36.6 96 18 103/73 (83) 94 Room Air Allergies Coded Allergies: Penicillins (Verified Allergy, Intermediate, RASH/HIVES, 06/27/17) Sulfa Antibiotics (Verified Allergy, Intermediate, HIVES, 06/27/17) Codeine (Verified Allergy, Unknown, ., 06/27/17) has tolerated morphine on multiple occasions while hospitalized Indomethacin (Verified Allergy, Unknown, 06/27/17) Iodine (Verified Allergy, Unknown, 06/27/17) [place] (Verified Allergy, Unknown, 06/27/17) Home Medications Scheduled Ipratropium-Albuterol (Combivent Respimat), 1 PUFF PO QID Losartan Potassium (Losartan Potassium), 50 MG PO DAILY Pantoprazole (Protonix), 40 MG PO DAILY Problem List Medical Problems: (1) Alcohol Abuse-Unspec (2) Anxiety (3) Anxiety State Nos (4) Asthma, Unspecified (5) C. difficile colitis (6) Calculus Of Ureter (7) Diverticulosis Colon (W/O Ment Of Hemorrhage) (8) Facial cellulitis (9) Gastroenteritis (10) GI bleed (11) Hypokalemia (12) Hypothyroidism Nos (13) Lumbago (14) Migraine Unspecified W/O Intract Mgrn W/O Status Migrainosus (15) Pancreatitis, acute (16) Severe alcohol use disorder (17) Shock circulatory Surgical Problems: (1) History of cholecystectomy (2) Hx of appendectomy Surgical / Medical History Hx Cardiac Surgery: No Hx Abdominal Surgery: Yes (Lap [place], [place]BERT, APPY) Hx Cancer Surgery: No Hx Thoracic Surgery: No Hx Orthopedic: Yes (Left foot fx repair with hardware) Hx Urinary Tract Surgery: No HX Other Surgery: Yes (see below) Past Medical/Surgical History: Asthma, Anxiety, Hypertension, Liver Disease Family History COPD Social History Smoking Status: Current Every Day Smoker Hx Tobacco Use In Past Year?: Yes (CIGARETTES) Hx Alcohol Use - Type & Amnt: Yes (HX ABUSE ) Hx Substance Use -Type & Amnt: No Review of Systems Constitutional: + weakness Skin: + change in color Respiratory: No cough, No cyanosis, No BELL, No hemoptysis, No orthopnea, No PND , No short of breath, No sputum production, No stridor, No wheezing, No dyspnea , No problem reported Cardiovascular: No chest pain, No chest tightness, No chest pressure, No palpitations, No syncope, No diaphoresis, No edema, No intermittent claudication , No orthopnea, No cyanosis, No mumur, No lightheadedness, No paroxysmal nocturnal dyspnea, No problem reported Gastrointestinal: + abdominal pain, + stool changes, + rectal bleeding Musculoskeletal: No back pain, No gout, No joint pain, No joint swelling, No muscle pain, No muscle stiffness, No muscle weakness, No neck pain, No problem reported Neurologic: No dizziness, No weakness, No headache, No lethargy, No numbness, No paresthesia, No pre-existing deficit, No seizures, No tics, No tingling, No tremors, No vertigo, No memory loss, No LOC, No problem reported Psychiatric: + alcohol abuse Physical Exam Constitutional: General Apperance: cachectic Level of Distress: mild distress Ambulation: ambulating normally Psychiatric: Mental Status: active & alert, normal mood, normal affect Orientation: oriented except where noted, to time, to place, to person Memory: recent memory normal, remote memory normal Eyes: Pupils: pertinent finding (slightly icteric) Lungs: Auscultation: breath sounds normal Cardiovascular: Heart Auscultation: RRR Peripheral Pulses: Radial Pulse: normal on the left, normal on the right Posterior Tibialis Pulse: normal on the left, normal on the right Dorsalis Pedis Pulse: normal on the left, normal on the right Abdomen: Inspection & Palpation: distended, LUQ tenderness, RUQ tenderness, LLQ tenderness, RLQ tenderness Musculoskeletal: normal, normal strength (5/5 throughout) Extremities: Upper Right: no cyanosis, no edema, no varicosities, no palpable cord, no clubbing, no ulcers, no mottling Upper Left: no cyanosis, no edema, no palpable cord, no clubbing, no ulcers , no mottling Lower Right: no cyanosis, no edema, no varicosities, no palpable cord, no clubbing, no ulcers, no mottling Lower Left: no cyanosis, no edema, no varicosities, no palpable cord, no clubbing, no ulcers, no mottling Neurologic: Cranial Nerves: grossly intact Sensation: grossly intact Assessment and Plan Imp: Celiac artery occlusion Ischemic colitis Liver disease Plan: The celiac artery occlusion is not symptomatic. Her SMA and LISBET are widely patent and the celiac is well collateralized. Her ischemic changes of her colon are not secondary to the celiac artery occlusion. No intervention is indicated for this lesion. Would continue present treatment. If condition worsens would recommend repeat CT scan and surgery consult. Please call if needed or if you have any questions. Thank you very much for letting me participate in the care of this patient.
[2017-06-30] MEDS: BOOST PLUS VANILLA PO SCH ×2 (09:00→19:35)
[2017-06-30] MEDS: HYDROmorphone INJ 1 MG/ML SYR IV PRN ×2 (09:07→20:36)
[2017-06-30] MEDS ORDERED: SODIUM PHOSPHATE 3 MMOL/1 ML INFUSION IV STA (09:20)
[2017-06-30] MEDS ORDERED: SODIUM PHOSPHATE INJ 21 MMOL in SODIUM CHLORIDE 0.9% 500ML 500 ML IV ONE (09:45)
[2017-06-30] MEDS: MAGNESIUM SULFATE 1GM / D5W 1 GM in PREMIXED IN D5W 100 ML IV SCH ×2 (09:59→10:51)
[2017-06-30] MEDS: SODIUM CHLORIDE 0.9% 1000ML 1,000 ML IV SCH ×2 (10:48→21:45)
[2017-06-30] MEDS: THIAMINE HCL INJ 100 MG in SYRINGE 9 ML IV SCH (10:49)
[2017-06-30] MEDS: FoLIC ACID INJ 1 MG in SYRINGE 9.8 ML IV SCH (10:50)
[2017-06-30] MEDS: VANCOMYCIN HCL 250 MG/5 ML SOLN PO SCH ×3 (10:52→21:45)
[2017-06-30] MEDS: RASPBERRY SYRUP 5 ML UDP PO SCH ×3 (10:53→21:45)
--- NOTE | 2017-06-30 11:16 | PROGRESS NOTE ---
DATE: 06/30/2017 SUBJECTIVE: The patient is vomiting this morning. OBJECTIVE: VITAL SIGNS: Show blood pressure of 94/62, pulse 96, temperature is 36.4, room air saturations 91%. ABDOMEN: Distended. There was laparoscopic cholecystectomy scars. There is mild diffuse tenderness throughout the abdomen. LABORATORY DATA: Shows significant jump in her white count from 9.94 to 15.58, hemoglobin is 9.5, platelets 169. Chemistry continue to show some electrolyte disturbance in her chloride, CO2, phosphorus, magnesium, bilirubin is 10.5 today. Alkaline phosphatase of 339. IMPRESSION: The patient's condition is not improving very rapidly. She appears to have ischemic bowel and the elevated white count today is worrisome that she may be developing some necrotic bowel. She continues to be tender. CT angiogram demonstrated an occluded celiac vessel but patent SMA and inferior mesenteric arteries. Plan on getting a lactic acid level today. If it is rising and she continues to remain tender, we may need to reassess her bowel for progressive ischemia. Obviously, she is not a great surgical candidate given her underlying liver disease.
--- NOTE | 2017-06-30 14:04 | Progress Note ---
Subjective Date of Service: Jun 30, 2017. Subjective Pt evaluation today including: conversation w/ patient, physical exam, lab review, review of studies, conversation w/ cyber security consultant, review of inpatient medication list Pain: abdominal pain, less intense PO Intake: clears, wants to try toast Voiding: gil catheter in place patient doing slightly better, less abdominal pain, still with diarrhea, no vomiting says she feels like she is having "out of body experience" tearful at times, struggling with her situation discussed trying to eat more, she wanted to try to advance diet reviewed CT angiogram of abdomen/pelvis, stenosis of celiac artery with good collateral flow SMA and LISBET patent which would argue against ischemic colitis reviewed labs, Cr improved further to 1.3, phosphorus low at 1.4 and magnesium low at 1.4 WBC up likely from steroids yesterday, Hb stable at 9.5 lactic acid up at 2.1 discussed the case with Dr. Joseph Problem List Medical Problems: (1) Abdominal pain Status: Acute (2) Acute pancreatitis Status: Acute (3) Alcohol abuse Status: Acute (4) Alcohol intoxication Status: Acute (5) Anemia Status: Acute (6) Anemia Status: Acute (7) Biliary obstruction Status: Acute (8) C. difficile colitis Status: Acute (9) C. difficile diarrhea Status: Acute (10) Chest pain Status: Acute (11) Contusion of multiple sites Status: Acute (12) Dehydration Status: Acute (13) Dehydration Status: Acute (14) Encounter for smoking cessation counseling Status: Acute (15) Epigastric abdominal pain Status: Acute (16) Fall Status: Acute (17) Fall due to slipping on ice or snow Status: Acute (18) Fracture of left distal radius Status: Acute (19) Hypocalcemia Status: Acute (20) Hypomagnesemia Status: Acute (21) Hypomagnesemia Status: Acute (22) Hypotension Status: Acute (23) Lactic acidosis Status: Acute (24) Liver failure Status: Acute (25) Pancreatitis Status: Acute Review of Systems Constitutional: + weakness, + fatigue Abdomen: + pain, + diarrhea, + problem reported (poor appetite) Psychiatric: + depression symptoms, + anxiety Skin: + color change All Other Systems: Reviewed and Negative Medications Current Inpatient Medications Medications (Trade) Dose Ordered Sig/Razia Route Start Time Stop Time Status Last Admin Dose Admin Metronidazole 500 mg/Prmx 100 ml @ 100 mls/hr Q8H IV 06/27/17 18:00 07/07/17 17:59 06/30/17 10:52 100 MLS/HR Pantoprazole Sodium 40 mg/ Syringe 10 ml @ 5 mls/min BID IV 06/27/17 09:00 07/27/17 08:59 06/30/17 08:09 5 MLS/MIN Thiamine HCl 100 mg/Syringe 10 ml @ 2 mls/min Q24H IV 06/28/17 11:00 07/28/17 10:59 06/30/17 10:49 2 MLS/MIN Folic Acid 1 mg/ Syringe 10 ml @ 5 mls/min Q24H IV 06/28/17 11:00 07/28/17 10:59 06/30/17 10:50 5 MLS/MIN Lorazepam (Ativan Inj) 1 mg ONE PRN IV 06/27/17 09:15 Ciprofloxacin (Consult) 1 ea UD PRN N/A 06/27/17 12:00 07/27/17 11:59 Enteral Nutritional Formula (Boost Plus Vanilla) 1 can BID PO 06/27/17 21:00 07/27/17 20:59 06/30/17 09:00 1 CAN Ondansetron HCl (Zofran Inj) 4 mg Q6H PRN IV 06/27/17 17:46 07/27/17 17:45 Ciprofloxacin/ Dextrose 400 mg/ Prmx 200 ml @ 100 mls/hr Q12H IV 06/30/17 09:00 07/07/17 12:59 06/30/17 08:09 100 MLS/HR Hydromorphone HCl (Dilaudid Inj) 1 mg Q3HWA PRN IV 06/29/17 09:15 07/13/17 09:14 06/30/17 09:07 1 MG Ioversol (Optiray 320) 125 ml UD PRN IV 06/29/17 14:00 07/03/17 13:59 Sodium Chloride 1,000 ml @ 75 mls/hr [id number] IV 06/30/17 09:30 07/30/17 09:29 06/30/17 10:48 75 MLS/HR Vancomycin HCl (Vancomycin Oral Soln) 250 mg Q6H PO 06/30/17 10:00 07/10/17 09:59 06/30/17 10:52 250 MG Raspberry (Raspberry Syrup 5ml Cup) 5 ml Q6H PO 06/30/17 10:00 07/14/17 09:59 06/30/17 10:53 5 ML Sodium Phosphate 21 mmol/Sodium Chloride 507 ml @ 88 mls/hr TODAY@0945 ONCE IV 06/30/17 09:45 06/30/17 15:30 Objective Vital Signs Date Time Temp Pulse Resp B/P (MAP) Pulse Ox O2 Delivery O2 Flow Rate FiO2 06/30/17 11:30 36.4 98 22 88/52 (64) 90 Room Air 06/30/17 08:00 Room Air 06/30/17 07:25 36.4 96 20 94/62 (73) 91 Room Air 06/30/17 04:00 Room Air 06/30/17 03:05 36.7 95 18 94/64 (74) 95 Room Air 06/30/17 00:00 Room Air 06/29/17 23:07 36.6 96 18 103/73 (83) 94 Room Air 06/29/17 20:00 94 Room Air 06/29/17 19:32 36.5 96 18 111/79 (90) 94 Room Air 06/29/17 16:00 92 Room Air 06/29/17 15:17 36.4 95 16 91/62 (72) 92 Room Air Physical Exam General Appearance: WD/WN, no apparent distress Eyes: normal inspection, EOMI, + abnormal sclerae exam (icterus) ENT: normal ENT inspection, hearing grossly normal, pharynx normal Neck: supple, no adenopathy, no JVD, trachea midline Respiratory/Chest: chest non-tender, lungs clear, normal breath sounds, no respiratory distress, no accessory muscle use Cardiovascular: regular rate, rhythm, no edema, no gallop, no JVD, no murmur Abdomen: soft, no organomegaly, + abnormal bowel sounds, + distended, + tenderness Extremities: normal range of motion, non-tender, normal inspection, no pedal edema, no calf tenderness, normal capillary refill, pelvis stable Neurologic/Psychiatric: mop maker II-XII nml as tested, oriented x 3, + motor weakness, + depressed affect Skin: + jaundice Laboratory Results CTA abdomen and pelvis IMPRESSION: 1. 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 No evidence of renal artery stenosis. No evidence of superior mesenteric artery stenosis 3. No evidence of aortic aneurysm or dissection 4. Severe hepatic steatosis. Indeterminate hypodense hepatic lesions possibly representing focal fatty sparing 5. Small bilateral pleural effusions and bibasal groundglass pulmonary opacities 6. No evidence of bowel obstruction. No evidence of free air. 7. Small amount of free pelvic fluid. Diffuse body wall edema. Last 24 Hours Test 06/30/17 06:58 06/30/17 11:24 White Blood Count 15.58 K/uL Red Blood Count 2.80 M/uL Hemoglobin 9.5 g/dL Hematocrit 28.7 % Mean Corpuscular Volume 102.5 fL Mean Corpuscular Hemoglobin 33.9 pg Mean Corpuscular Hemoglobin Concent 33.1 g/dl Platelet Count 169 K/uL Mean Platelet Volume 10.9 fL Neutrophils (%) (Auto) 84.7 % Lymphocytes (%) (Auto) 7.8 % Monocytes (%) (Auto) 5.7 % Eosinophils (%) (Auto) 0.1 % Basophils (%) (Auto) 0.2 % Neutrophils # (Auto) 13.20 K/uL Lymphocytes # (Auto) 1.22 K/uL Monocytes # (Auto) 0.89 K/uL Eosinophils # (Auto) 0.01 K/uL Basophils # (Auto) 0.03 K/uL RDW Standard Deviation 88.9 fL RDW Coefficient of Variation 24.2 % Immature Granulocyte % (Auto) 1.5 % Immature Granulocyte # (Auto) 0.23 K/uL Toxic Vacuolation 2+ Anisocytosis PRESENT Pappenheimer Bodies 1+ Target Cells 1+ Prothrombin Time 15.5 SECONDS Prothromb Time International Ratio 1.5 Activated Partial Thromboplast Time 26.8 SECONDS Partial Thromboplastin Ratio 1.0 Sodium Level 142 mmol/L Potassium Level 4.6 mmol/L Chloride Level 115 mmol/L Carbon Dioxide Level 19 mmol/L Anion Gap 8.0 mmol/L Blood Urea Nitrogen 16 mg/dl Creatinine 1.31 mg/dl Est Creatinine Clear Calc Drug Dose 55.0 ml/min Estimated GFR () 54.1 Estimated GFR (Non- 46.7 BUN/Creatinine Ratio 12.4 Random Glucose 112 mg/dl Calcium Level 7.2 mg/dl Phosphorus Level 1.4 mg/dl Magnesium Level 1.4 mg/dl Total Bilirubin 10.5 mg/dl Direct Bilirubin 8.9 mg/dl Aspartate Amino Transf (AST/SGOT) 77 U/L Alanine Aminotransferase (ALT/SGPT) 25 U/L Alkaline Phosphatase 339 U/L Total Protein 5.8 gm/dl Albumin 1.8 gm/dl Lactic Acid Level 2.1 mmol/L Assessment and Plan 52 yo female with history of alcohol abuse, cirrhosis, c diff colitis who presented with weakness, hypotension, bloody diarrhea, KEVIN, acidosis - Circulatory shock: due to hypovolemia and anemia, resolved quickly with resuscitation measures given 3L NSS in the ED, transfused two units PRBC in ICU normotensive for over 72 hours, never required pressors improved urine output, continue to follow mentating clearly lactic acid 2.1 today? will follow, abdominal pain better - GI bleed, initially suspected ischemic colitis: story of bright red blood once a day for 3 days and some clots Protonix BID, stopped octreotide drip GI following CTA of A/P showed stenosis of celiac artery with good arterial collateral flow, SMA and LISBET patent, no ischemic changes in colon Hb up at 9.5 today, continue to monitor, had a little blood with BM yesterday continue to have loose stools, check C diff, has recent history of infection in April 2017 less abdominal pain, less distension today - Acute renal failure with metabolic acidosis Cr up to 3.5 at admission, improved to 1.3 today, continue fluids since PO intake is poor likely combination of blood loss, dehydration and hypotension - Hypokalemia: resolved, 4.6 today, remove K from IV fluids - Hypophosphatemia: 1.4 this AM, give additional NaPhos replacement and repeat tomorrow - Hypomagnesemia: 1.4 today, 2gm IV ordered - Alcoholism, last drink was two days prior to admission place on withdrawal protocol, had some tremors on admission, resolved for time being thiamine and folate daily no signs of DT's - Hyperbilirubinemia: hepatic steatosis on imaging, likely developing cirrhosis with alcoholism history supportive care, continue to monitor, bili up slightly today to 10 DVT prophylaxis: SCD remain on tele
[2017-06-30] MEDS ORDERED: SODIUM CHLORIDE 0.9% 1000ML 1,000 ML IV ONE (19:15)
[2017-06-30] MEDS ORDERED: ALBUT/IPRATROP 3MG/0.5MG NEB 3 ML VIAL INH ONE (23:00)
[2017-07-01] VITALS (90 sets, daily range): BP systolic 56–160; BP diastolic 24–82; PULSE 72–113; TEMP 36.3–36.7; O2SAT 67–100
[2017-07-01] MEDS: METRONIDAZOLE / NSS 500 MG in PREMIXED NSS 100 ML IV SCH ×3 (01:58→18:20)
[2017-07-01] MEDS: VANCOMYCIN HCL 250 MG/5 ML SOLN PO SCH ×4 (03:50→21:24)
[2017-07-01] MEDS: RASPBERRY SYRUP 5 ML UDP PO SCH ×4 (03:50→21:21)
[2017-07-01] MEDS ORDERED: ALBUT/IPRATROP 3MG/0.5MG NEB 3 ML VIAL INH ONE (04:00)
[2017-07-01 04:38] LABS: HEMATOCRIT 28.3 % (37-47); HEMOGLOBIN 9.4 g/dL (12.0-16.0); MEAN CELL VOLUME 101.8 fL (80-100); MEAN CORPUSCULAR HEMOGLOBIN 33.8 pg (25-34); MEAN CORPUSCULAR HGB CONC 33.2 g/dl (32-36); MEAN PLATELET VOLUME 10.8 fL (7.4-10.4); PLATELET COUNT 148 K/uL (130-400); RED CELL DISTRIBUTION WIDTH CV 24.3 % (11.5-14.5); RED CELL DISTRIBUTION WIDTH SD 89.8 fL (36.4-46.3); WHITE BLOOD COUNT 15.57 K/uL (4.8-10.8)
[2017-07-01 05:04] LABS: INR 1.8 (0.9-1.1); PTT PATIENT 33.1 SECONDS (21.0-31.0)
[2017-07-01 05:27] LABS: ALBUMIN 1.6 gm/dl (3.4-5.0); CALCIUM 7.1 mg/dl (8.5-10.1); CREATININE 1.26 mg/dl (0.60-1.20); PHOSPHORUS 2.2 mg/dl (2.5-4.9); POTASSIUM 4.1 mmol/L (3.5-5.1); TOTAL PROTEIN 5.1 gm/dl (6.4-8.2)
[2017-07-01 05:45] LABS: ISTAT POTASSIUM 4.2 mEq/L (3.3-5.0)
[2017-07-01] MEDS ORDERED: ALBUMIN HUMAN 25% 12.5 GM/50 ML VIAL IV ONE (05:45)
[2017-07-01] MEDS ORDERED: VANCOMYCIN CONSULT ACTIVE PRN (05:45)
--- NOTE | 2017-07-01 05:55 | Progress Note ---
Progress Note Date of Service Jul 01, 2017. Progress Note Increasing oxygen demands overnight. Initially noted to be wheezing without focal findings clinically. Duoneb x 2 ordered. Initially noted improvement. Second treatment did not alleviate. Overnight, progressed to oxymask. Decision made to obtain chest x-ray. Reviewed radiograph noting infiltrate in left lung. Labs moved forward. Patient assessed at bedside with crackles bilaterally R > L. Denies abdominal pain. No guarding or rigidity. Labs ordered early. Discussed case with overnight ICU provider, with joint decision to move patient down to ICU for closer monitoring. On arrival to ICU patient placed on BiPAP 12/5 100% FiO2 ABG obtained demonstrating a metabolic acidosis with respiratory compensation ( pH 7.23; pC02 27; HCO3 11.5) Review of labs showed WBC 15, stable Lactate increased from 2.1 yesterday to 5.3 today Repeat cultures obtained and pending. Acute respiratory failure, sepsis, multifactorial metabolic acidosis (ongoing ischemic colitis + superimposing left lobar PNA) Patient currently on Cipro/Flagyl for colitis + PO vanco for C.diff. The following changes have been made to cover for pulmonary process Levaquin starting in exchange for Ciprofloxacin IV Vancomycin added Continue IV Flagyl 125 mg IV Solu-medrol given Consider addition of dual pseudomonal cover. Patient has Penicillin allergy ( rash). Cefepime could be an option.
[2017-07-01] MEDS ORDERED: LEVOFLOXACIN CONSULT ACTIVE PRN (06:15)
[2017-07-01] MEDS: LEVOFLOXACIN / D5W 750 MG in PREMIXED IN D5W 150 ML IV SCH (06:25)
[2017-07-01] MEDS ORDERED: VANCOMYCIN IV 2,000 MG in SODIUM CHLORIDE 0.9% 500ML 500 ML IV SCH (06:30)
[2017-07-01] MEDS ORDERED: RAPID SEQUENCE INDUCTION BAG ONE ×2 (06:49→11:10)
[2017-07-01] MEDS ORDERED: PIPERACILL/TAZOBAC CONSULT ACTIVE PRN (07:00)
[2017-07-01] MEDS ORDERED: METHYLPREDNISOLONE IV 125 MG in SYRINGE 0 ML IV ONE (07:15)
[2017-07-01] MEDS ORDERED: CEFEPIME IV 1,000 MG in DEXTROSE 5% 100ML 100 ML IV SCH (07:30)
[2017-07-01] MEDS ORDERED: ALBUMIN HUMAN 5% 12.5 GM/250 ML VIAL IV ONE (07:30)
--- NOTE | 2017-07-01 07:31 | DIAGNOSTIC IMAGING REPORT ---
CHEST ONE VIEW PORTABLE CLINICAL HISTORY: tachchypnea, hypoxia COMPARISON STUDY: 06/27/2017 FINDINGS: The cardiac and mediastinal contours remain stable. Multiple calcified granulomas are visualized. There are multifocal airspace opacities, most pronounced within the left lower lobe. There is slight elevation of the interstitium. Diagnostic considerations include a multifocal pneumonitis, versus congestive failure with asymmetric edema. Clinical and radiographic follow-up is recommended.[ IMPRESSION: 1. Interval development of slight elevation of the interstitium and multifocal airspace opacities most pronounced within the left lower lobe. 2. While the findings likely represent interstitial pulmonary edema with asymmetric pulmonary edema, a multifocal pneumonitis could appear similar Electronically signed by: Ramon Dominique M.D. 07/01/2017 7:30 AM Dictated Date/Time: 07/01/2017 7:26 AM
[2017-07-01] MEDS ORDERED: SODIUM BICARB 8.4% INJ 50 MEQ/50 ML SYR IV STA (07:34)
[2017-07-01] MEDS ORDERED: CEFEPIME CONSULT ACTIVE PRN (07:45)
[2017-07-01] MEDS ORDERED: NORMOSOL R 1,000 ML IV SCH (07:45)
[2017-07-01] MEDS: ALBUT/IPRATROP 3MG/0.5MG NEB 3 ML VIAL INH PRN ×2 (07:58→10:06)
[2017-07-01] MEDS ORDERED: SUCCINYLCHOLINE CHLORIDE 20 MG/ML 10 ML VIAL IV ONE (08:14)
[2017-07-01] MEDS ORDERED: ETOMIDATE 2 MG/ML 20 ML VIAL IV ONE (08:14)
[2017-07-01] MEDS ORDERED: SODIUM BICARB 8.4% INJ 50 MEQ/50 ML SYR IV ONE (08:19)
[2017-07-01] MEDS ORDERED: SODIUM CHLORIDE 0.9% 10ML FLUSH IV ONE (08:19)
[2017-07-01] MEDS: BOOST PLUS VANILLA PO SCH ×2 (09:00→21:00)
[2017-07-01] MEDS: PANTOprazole INJ 40 MG in SYRINGE 0 ML IV SCH ×2 (09:15→21:19)
[2017-07-01] MEDS: CEFEPIME IV 2,000 MG in SYRINGE 7.5 ML IV SCH ×2 (09:16→21:19)
[2017-07-01] MEDS: NORMOSOL R 1,000 ML IV SCH ×2 (09:26→16:54)
[2017-07-01 09:30] LABS: HEMATOCRIT 24.1 % (37-47); MEAN CELL VOLUME 101.3 fL (80-100); MEAN CORPUSCULAR HEMOGLOBIN 33.6 pg (25-34); MEAN CORPUSCULAR HGB CONC 33.2 g/dl (32-36); MEAN PLATELET VOLUME 11.1 fL (7.4-10.4); NUCLEATED RED BLOOD CELL ABS 0.08 K/uL (0-0); PLATELET COUNT 125 K/uL (130-400); RED CELL DISTRIBUTION WIDTH CV 24.4 % (11.5-14.5); RED CELL DISTRIBUTION WIDTH SD 88.6 fL (36.4-46.3); WHITE BLOOD COUNT 12.62 K/uL (4.8-10.8)
[2017-07-01 10:15] LABS: CREATININE 1.08 mg/dl (0.60-1.20)
[2017-07-01 10:16] LABS: ALBUMIN 1.9 gm/dl (3.4-5.0); CALCIUM 6.5 mg/dl (8.5-10.1); PHOSPHORUS 2.7 mg/dl (2.5-4.9); TOTAL PROTEIN 4.6 gm/dl (6.4-8.2)
--- NOTE | 2017-07-01 10:31 | Procedure Note ---
Procedure Note Procedure Date Jul 01, 2017. Central Line Procedure time out: side/site verified, patient ID confirmed, sterile procedure used Consent obtained: emergent consent implied Performed by: attending Indications: poor venous access, central drug admin. Prep: chlorhexadine prep, sterile drape, sterile procedures used Anesthesia: lidocaine 1% without epi Volume anesthetic (ml's): 5 Central line location: femoral (L) Additional details: percutaneous placement, ultrasound guidance, Selinger technique used, line sutured, good blood return Complications: none Patient tolerated procedure: well Post-procedure vital signs: reviewed and stable
[2017-07-01] MEDS ORDERED: CALCIUM CHLORIDE 10% 10 ML SYR IV STA ×3 (10:33→17:37)
--- NOTE | 2017-07-01 10:33 | Procedure Note ---
Procedure Note Procedure Date Jul 01, 2017. Procedure Description Procedure Name: left femoral a-line Procedure time out: side/site verified, patient ID confirmed, correct procedure Consent obtained: emergent consent implied Performed by: attending Indications: diagnostic Contraindications: none Description: The left inguinal area was cleaned with chlorhexidine with a wide area of coverage. The area was covered with a fenestrated sterile drape. Under ultrasound guidance, the left femoral artery was identified. The skin and subcutaneous tissue over the femoral artery were infiltrated with 1 % lidocaine. Under ultrasound guidance, the left femoral was penetrated by the needle and it was exchanged over a guidewire to a 20G arterial line catheter. The a-line was connected to the a-line tubing, the monitor showing arterial wave -forms. Line was secured to skin using a suture, and was covered with Biopatch and transparent adhesive dressing. No complications noted, no distal vascular compromise observed immediately Complications: none Patient tolerated procedure: well Post-procedure vital signs: reviewed and stable
[2017-07-01] MEDS: SODIUM BICARBONATE 8.4% INJ 150 MEQ in DEXTROSE 5% 1000ML 1,000 ML IV SCH ×2 (11:00→21:21)
[2017-07-01] MEDS ORDERED: SODIUM CHLORIDE 0.9% 1000ML 500 ML IV SCH (11:00)
[2017-07-01] MEDS: MAGNESIUM SULFATE 1GM / D5W 1 GM in PREMIXED IN D5W 100 ML IV SCH ×2 (11:00→11:46)
[2017-07-01] MEDS ORDERED: CALCIUM CHLORIDE 10% 1,000 MG in SODIUM CHLORIDE 0.9% 50ML 50 ML IV ONE (11:15)
[2017-07-01] MEDS: THIAMINE HCL INJ 100 MG in SYRINGE 9 ML IV SCH (11:46)
[2017-07-01] MEDS: FoLIC ACID INJ 1 MG in SYRINGE 9.8 ML IV SCH (11:46)
--- NOTE | 2017-07-01 11:52 | Procedure Note ---
Procedure Note Procedure Date Jul 01, 2017. Procedure Description Procedure Name: Endotracheal intubation Procedure time out: patient ID confirmed, correct procedure Consent obtained: emergent consent implied Performed by: attending Indications: therapeutic Contraindications: none Description: Patient positioned in supine position Sedated with Etomidate 15 mg. Neuromuscular blockade with Succinylcholine Intubated the patient with 8.0 ET tube using the Glidescope Positive color change on capnometry Post-procedure vital signs: other (Remains proflundly hypoxic, required prolonged manual ventilation. Copious amount of jaundiced secretions suctioned)
[2017-07-01] MEDS ORDERED: FENTANYL CITRATE 1250MCG/250ML NSS ONE (11:54)
[2017-07-01] MEDS ORDERED: MIDAZOLAM HCL 1 MG/ML 2ML VIAL ONE (11:55)
[2017-07-01] MEDS ORDERED: CISATRACURIUM IV BOLUS & DRIP IV STA (11:59)
[2017-07-01] MEDS ORDERED: CISATRACURIUM BOLUS FROM BAG IV ONE (12:15)
--- NOTE | 2017-07-01 12:24 | DIAGNOSTIC IMAGING REPORT ---
CHEST ONE VIEW PORTABLE CLINICAL HISTORY: Respiratory failure COMPARISON STUDY: 07/01/2017 FINDINGS: There has been interval placement of an endotracheal tube 3.6 cm above the [place]. There is a nasogastric tube which passes into the stomach. There are progressive extensive bilateral airspace opacities.[ IMPRESSION: 1. Progressive extensive bilateral airspace opacities 2. Endotracheal tube 5.2 cm above the [place]ia [place] rosario 3. Interval placement of a nasogastric tube which passes into the stomach. Electronically signed by: Ramon Dominique M.D. 07/01/2017 12:22 PM Dictated Date/Time: 07/01/2017 12:19 PM
[2017-07-01 12:31] LABS: HEMATOCRIT 26.9 % (37-47); HEMOGLOBIN 8.8 g/dL (12.0-16.0); MEAN CELL VOLUME 104.7 fL (80-100); MEAN CORPUSCULAR HEMOGLOBIN 34.2 pg (25-34); MEAN CORPUSCULAR HGB CONC 32.7 g/dl (32-36); MEAN PLATELET VOLUME 11.6 fL (7.4-10.4); PLATELET COUNT 154 K/uL (130-400); RED CELL DISTRIBUTION WIDTH CV 24.8 % (11.5-14.5); WHITE BLOOD COUNT 17.15 K/uL (4.8-10.8)
[2017-07-01] MEDS ORDERED: MIDAZOLAM 125MG/250ML D5W IV ONE (12:37)
--- NOTE | 2017-07-01 12:40 | PROGRESS NOTE ---
DATE: 07/01/2017 SUBJECTIVE: The patient has taken a major turn for the worse overnight and she got hypotensive and dropped her O2 saturation. Her stools turned positive for C. diff. She also has developed what looks like to be a pneumonia causing tachypnea and hypoxia. The pneumonia appears to be most pronounced in the left lower lobe. The patient was moved to the ICU and intubated due to her hypoxia which is continuing to be a problem. Despite best efforts, her O2 saturations remained around 70%. She is being treated for pneumonia and C. diff at this time. Her lactic acid has also bumped up to 2.1. IMPRESSION: The patient's condition has deteriorated with what looks like a left lower lobe pneumonia and Clostridium difficile. She is intubated and hypoxic despite aggressive maneuvers to improve her oxygenation. Her prognosis at this point is very grave. It is possible that she may have developed a pulmonary embolism as well, which is preventing her from being oxygenated. Her chances of recovery are low given her poor nutritional status and underlying liver disease. We will continue to follow the patient.
[2017-07-01 12:41] LABS: PTT PATIENT 44.5 SECONDS (21.0-31.0)
[2017-07-01] MEDS: MIDAZOLAM 125MG/250ML D5W 250 ML IV SCH (12:42)
[2017-07-01 12:57] LABS: ALBUMIN 1.8 gm/dl (3.4-5.0); CALCIUM 7.4 mg/dl (8.5-10.1); CREATININE 1.09 mg/dl (0.60-1.20); POTASSIUM 3.8 mmol/L (3.5-5.1); TOTAL PROTEIN 4.7 gm/dl (6.4-8.2)
[2017-07-01] MEDS ORDERED: PIPERACILL/TAZOBAC IV 3.375 GM in DEXTROSE 5% 100ML 100 ML IV SCH (14:00)
[2017-07-01 14:10] LABS: CKMB 1.4 ng/ml (0.5-3.6)
[2017-07-01] MEDS ORDERED: MIDAZOLAM HCL 5 MG/ML 1 ML VIAL IV STA (14:13)
[2017-07-01 15:24] LABS: INFLUENZA B ANTIGEN Neg for Influ B (NEG)
[2017-07-01] MEDS: METHYLPREDNISOLONE IV 40 MG in SYRINGE 0 ML IV SCH (16:19)
--- NOTE | 2017-07-01 16:28 | Progress Note ---
Subjective Date of Service: Jul 01, 2017. Subjective Pt evaluation today including: conversation w/ patient, conversation w/ family (daughter and mother), physical exam, chart review, lab review, review of studies, conversation w/ internet consultant, review of inpatient medication list Pain: sedated PO Intake: NPO Voiding: gil catheter in place patient had acute respiratory distress this AM, oxygen saturations dropped rapidly, transferred to the ICU CXR showed a left lower lobe infiltrate, new finding started on broad spectrum antibiotics deteriorated later in the morning, hypotensive, bradycardic, hypoxic required dose of Epinephrine to bring up pressure and HR, never truly coded intubated at the bedside by agri business agent CXR showed bilateral infiltrates, white out, consistent with pulmonary edema, ARDS started on Levophed, Vasopressin reviewed labs, WBC up to 17k, Hb 8.8 Cr 1.06, metabolic acidosis with HCO3 15 lactic acid up to 5 Problem List Medical Problems: (1) Abdominal pain Status: Acute (2) Acute pancreatitis Status: Acute (3) Alcohol abuse Status: Acute (4) Alcohol intoxication Status: Acute (5) Anemia Status: Acute (6) Anemia Status: Acute (7) Biliary obstruction Status: Acute (8) C. difficile colitis Status: Acute (9) C. difficile diarrhea Status: Acute (10) Chest pain Status: Acute (11) Contusion of multiple sites Status: Acute (12) Dehydration Status: Acute (13) Dehydration Status: Acute (14) Encounter for smoking cessation counseling Status: Acute (15) Epigastric abdominal pain Status: Acute (16) Fall Status: Acute (17) Fall due to slipping on ice or snow Status: Acute (18) Fracture of left distal radius Status: Acute (19) Hypocalcemia Status: Acute (20) Hypomagnesemia Status: Acute (21) Hypomagnesemia Status: Acute (22) Hypotension Status: Acute (23) Lactic acidosis Status: Acute (24) Liver failure Status: Acute (25) Pancreatitis Status: Acute Review of Systems cannot review, intubated Medications Current Inpatient Medications Medications (Trade) Dose Ordered Sig/Razia Route Start Time Stop Time Status Last Admin Dose Admin Pantoprazole Sodium 40 mg/ Syringe 10 ml @ 5 mls/min BID IV 06/27/17 09:00 07/27/17 08:59 07/01/17 09:15 5 MLS/MIN Thiamine HCl 100 mg/Syringe 10 ml @ 2 mls/min Q24H IV 06/28/17 11:00 07/28/17 10:59 07/01/17 11:46 2 MLS/MIN Folic Acid 1 mg/ Syringe 10 ml @ 5 mls/min Q24H IV 06/28/17 11:00 07/28/17 10:59 07/01/17 11:46 5 MLS/MIN Lorazepam (Ativan Inj) 1 mg ONE PRN IV 06/27/17 09:15 Enteral Nutritional Formula (Boost Plus Vanilla) 1 can BID PO 06/27/17 21:00 07/27/17 20:59 06/30/17 19:35 1 CAN Ondansetron HCl (Zofran Inj) 4 mg Q6H PRN IV 06/27/17 17:46 07/27/17 17:45 Hydromorphone HCl (Dilaudid Inj) 1 mg Q3HWA PRN IV 06/29/17 09:15 07/13/17 09:14 06/30/17 20:36 1 MG Ioversol (Optiray 320) 125 ml UD PRN IV 06/29/17 14:00 07/03/17 13:59 Vancomycin HCl (Vancomycin Oral Soln) 250 mg Q6H PO 06/30/17 10:00 07/10/17 09:59 07/01/17 11:00 250 MG Raspberry (Raspberry Syrup 5ml Cup) 5 ml Q6H PO 06/30/17 10:00 07/14/17 09:59 07/01/17 11:00 5 ML Albuterol/ Ipratropium (Duoneb) 3 ml Q4 PRN INH 07/01/17 05:30 07/31/17 05:29 07/01/17 10:06 3 ML Levofloxacin 750 mg/Prmx 150 ml @ 100 mls/hr Q24H IV 07/01/17 06:00 07/08/17 05:59 07/01/17 06:25 100 MLS/HR Vancomycin HCl 1500 mg/Sodium Chloride 530 ml @ 200 mls/hr Q16H IV 07/01/17 22:00 07/08/17 05:59 Miscellaneous Information (Consult) 1 ea UD PRN N/A 07/01/17 05:45 07/31/17 05:44 Levofloxacin (Consult) 1 ea UD PRN N/A 07/01/17 06:15 07/31/17 06:14 Methylprednisolone Sodium Succinate 40 mg/Syringe 0.64 ml @ 1.5 mls/min Q8H IV 07/01/17 16:00 07/31/17 15:59 Metronidazole 500 mg/Prmx 100 ml @ 100 mls/hr Q8H IV 07/01/17 10:00 07/07/17 09:59 07/01/17 09:16 100 MLS/HR Cefepime HCl 2000 mg/Syringe 20 ml @ 5 mls/min Q12 IV 07/01/17 09:00 07/08/17 08:59 07/01/17 09:16 5 MLS/MIN Parenteral Electrolyte Solution 1,000 ml @ 100 mls/hr Q10H IV 07/01/17 07:45 07/31/17 07:44 07/01/17 09:26 100 MLS/HR Cefepime HCl (Consult) 1 ea UD PRN N/A 07/01/17 07:45 07/31/17 07:44 Sodium Bicarbonate 150 meq/Dextrose 1,150 ml @ 100 mls/hr [id number] IV 07/01/17 11:00 07/31/17 10:59 07/01/17 11:00 100 MLS/HR Norepinephrine Bitartrate 8 mg/ Dextrose 508 ml @ 0 mls/hr Q0M PRN IV 07/01/17 11:15 07/31/17 11:14 Vasopressin 50 units/Sodium Chloride 502.5 ml @ 0 mls/hr Q0M PRN IV 07/01/17 11:53 07/31/17 11:52 Cisatracurium Besylate 40 mg/ Sodium Chloride 100 ml @ 0 mls/hr Q0M PRN IV 07/01/17 12:15 07/31/17 12:14 Midazolam HCl 250 ml @ 0 mls/hr Q0M IV 07/01/17 12:33 07/31/17 12:32 07/01/17 12:42 2 MLS/HR Objective Vital Signs Date Time Temp Pulse Resp B/P (MAP) Pulse Ox O2 Delivery O2 Flow Rate FiO2 07/01/17 14:27 92 21 110/55 (73) 96 07/01/17 14:12 94 28 111/55 (73) 99 07/01/17 14:01 96 27 116/59 (78) 100 07/01/17 13:57 97 21 117/59 (78) 99 07/01/17 13:50 100 07/01/17 13:42 99 28 116/58 (77) 99 07/01/17 13:27 36.6 102 21 115/56 (75) 98 07/01/17 13:27 102 21 115/56 (75) 98 07/01/17 13:12 104 30 116/56 (76) 96 07/01/17 13:01 107 29 116/55 (75) 94 07/01/17 12:57 107 28 118/56 (76) 94 07/01/17 12:57 107 28 118/56 (76) 94 07/01/17 12:42 109 25 129/62 (84) 87 07/01/17 12:27 113 25 138/68 (91) 90 07/01/17 12:12 104 22 122/56 (78) 100 07/01/17 12:10 100 07/01/17 12:01 102 20 103/44 (63) 76 07/01/17 12:00 99 Mechanical Ventilator 100 07/01/17 12:00 100 07/01/17 11:57 97 30 108/48 (68) 79 07/01/17 11:55 100 07/01/17 11:42 101 22 117/52 (73) 89 07/01/17 11:27 107 25 131/59 (83) 79 07/01/17 11:12 113 23 160/82 (108) 07/01/17 11:02 72 27 56/26 (36) 84 07/01/17 10:57 77 29 60/27 (38) 81 07/01/17 10:42 77 26 67/30 (42) 81 07/01/17 10:27 77 25 71/31 (44) 77 07/01/17 10:12 91 26 103/46 (65) 81 07/01/17 10:07 84 BiPAP 100 07/01/17 10:07 99 30 84 BiPAP/CPAP 100 07/01/17 10:07 92 84 100 07/01/17 10:01 83 25 76/35 (49) 78 07/01/17 09:57 84 25 85/39 (54) 83 07/01/17 09:43 36.7 92 26 77/48 (60) 86 95/44 07/01/17 09:42 91 22 92/42 (59) 86 07/01/17 09:31 87 22 87/39 (55) 85 07/01/17 09:27 89 28 93/43 (60) 89 77/48 (58) 07/01/17 09:27 89 28 78/32 (47) 89 07/01/17 09:15 96 22 90/44 (59) 90 07/01/17 09:01 91 26 78/42 (54) 07/01/17 09:00 91 23 80/42 (55) 07/01/17 08:46 94 29 89/55 (66) 90 07/01/17 08:45 98 24 93/59 (70) 92 07/01/17 08:31 92 24 71/47 (55) 96 07/01/17 08:30 92 25 97 07/01/17 08:15 95 25 77/53 (61) 98 07/01/17 08:01 92 24 74/46 (55) 100 07/01/17 08:00 97 99 100 07/01/17 08:00 92 23 97 07/01/17 07:58 97 24 99 BiPAP/CPAP 100 07/01/17 07:46 95 23 75/47 (56) 98 07/01/17 07:45 87 24 07/01/17 07:45 90 BiPAP 100 07/01/17 07:36 93 23 77/48 (58) 100 07/01/17 07:30 93 23 74/47 (56) 97 07/01/17 07:16 95 23 72/52 (59) 99 07/01/17 07:15 95 24 97 07/01/17 07:14 97 24 81/50 (60) 100 07/01/17 07:00 99 22 95/61 (72) 97 07/01/17 06:49 102 27 86/24 (44) 67 07/01/17 06:01 99 28 62/33 (43) 95 07/01/17 05:37 96 27 64/43 (50) 97 07/01/17 05:23 78 100 07/01/17 04:07 36.3 102 28 92/59 (70) 89 Oxymask 16.0 07/01/17 04:00 Oxymask 15.0 07/01/17 03:03 95 24 92 Mask 15.0 07/01/17 01:40 36.7 105 26 90/52 (65) 90 Oxymask 10.0 07/01/17 00:00 92 Nasal Cannula 6.0 06/30/17 23:38 99 90 Nasal Cannula 6.0 06/30/17 23:28 36.3 95 24 87/56 (66) 91 Nasal Cannula 6.0 06/30/17 20:00 93 Nasal Cannula 3.0 06/30/17 19:51 94/65 (75) 06/30/17 19:06 36.4 97 20 73/48 (56) 90 Nasal Cannula 4.0 72/48 (56) Physical Exam General Appearance: no apparent distress, + thin Neck: supple, no adenopathy, no JVD, trachea midline Respiratory/Chest: chest non-tender, no respiratory distress, no accessory muscle use, + decreased breath sounds, + crackles Cardiovascular: regular rate, rhythm, no edema, no gallop, no JVD, no murmur Abdomen: soft, no organomegaly, + abnormal bowel sounds (hypoactive), + distended, + tenderness Extremities: normal range of motion, non-tender, normal inspection, no pedal edema, no calf tenderness, pelvis stable 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9 % Lymphocytes % (Manual) 9.6 % Monocytes % (Manual) 3.5 % Nucleated Red Blood Cells % 0.6 % Neutrophils # (Manual) 13.53 K/uL Total Absolute Neutrophils 13.53 K/uL Lymphocytes # (Manual) 1.49 K/uL Total Absolute Lymphocytes 1.49 K/uL Monocytes # (Manual) 0.54 K/uL Polychromasia 1+ Anisocytosis PRESENT Echinocytes 1+ Prothrombin Time 18.7 SECONDS Prothromb Time International Ratio 1.8 Activated Partial Thromboplast Time 33.1 SECONDS Partial Thromboplastin Ratio 1.3 Sodium Level 143 mmol/L Potassium Level 4.1 mmol/L Chloride Level 117 mmol/L Carbon Dioxide Level 14 mmol/L Anion Gap 12.0 mmol/L Blood Urea Nitrogen 17 mg/dl Creatinine 1.26 mg/dl Est Creatinine Clear Calc Drug Dose 57.2 ml/min Estimated GFR () 56.7 Estimated GFR (Non- 48.9 BUN/Creatinine Ratio 13.2 Random Glucose 130 mg/dl Lactic Acid Level 5.3 mmol/L Calcium Level 7.1 mg/dl Phosphorus Level 2.2 mg/dl Magnesium Level 1.4 mg/dl Total Bilirubin 10.4 mg/dl Direct Bilirubin 8.6 mg/dl Aspartate Amino Transf (AST/SGOT) 63 U/L Alanine Aminotransferase (ALT/SGPT) 23 U/L Alkaline Phosphatase 302 U/L Ammonia < 10.0 umol/L Total Protein 5.1 gm/dl Albumin 1.6 gm/dl Procalcitonin 2.09 ng/ml Bedside Hemoglobin 8.8 g/dl Bedside Hematocrit 26 % Bedside FiO2 100 % 100 % Bedside Sodium 144 mEq/L Bedside Potassium 4.2 mEq/L Blood Gas Sample Site R Radial Bedside Blood Gas pH (LAB) 7.17 Bedside Blood Gas pCO2 (LAB) 28 mmHg Bedside Blood Gas pO2 (LAB) 103 mmHg Bedside Blood Gas HCO3 (LAB) 11 meq/L Bedside Blood Gas Total CO2 11 mEq/l Bedside Blood Gas Base Excess (LAB) -18.0 meq/L Bedside Blood Gas O2 Saturation 96.0 % Leonidas Test Pass Oxygen Delivery Device BIPAP Bedside Oxygen Rate (breaths/min) 14 Blood Gas IPAP 10 Bedside Glucose 122 mg/dl Test 07/01/17 08:59 07/01/17 09:18 07/01/17 11:27 07/01/17 12:02 Blood Gas Sample Site Art Line Art Line Bedside Blood Gas pH (LAB) 7.15 7.10 Bedside Blood Gas pCO2 (LAB) 38 mmHg 47 mmHg Bedside Blood Gas pO2 (LAB) 50 mmHg 55 mmHg Bedside Blood Gas HCO3 (LAB) 13 meq/L 15 meq/L Bedside Blood Gas Total CO2 15 mEq/l 16 mEq/l Bedside Blood Gas Base Excess (LAB) -16.0 meq/L -15.0 meq/L Bedside Blood Gas O2 Saturation 76.0 % 77.0 % Leonidas Test NA NA Oxygen Delivery Device BIPAP Ventilator Bedside Oxygen Rate (breaths/min) 14 22 Bedside FiO2 100 % 100 % Blood Gas IPAP 12 White Blood Count 12.62 K/uL Red Blood Count 2.38 M/uL Hemoglobin 8.0 g/dL Hematocrit 24.1 % Mean Corpuscular Volume 101.3 fL Mean Corpuscular Hemoglobin 33.6 pg Mean Corpuscular Hemoglobin Concent 33.2 g/dl RDW Standard Deviation 88.6 fL RDW Coefficient of Variation 24.4 % Platelet Count 125 K/uL Mean Platelet Volume 11.1 fL Nucleated RBC Absolute Count (auto) 0.08 K/uL Nucleated Red Blood Cells % 0.6 % Sodium Level 144 mmol/L Potassium Level 4.0 mmol/L Chloride Level 120 mmol/L Carbon Dioxide Level 14 mmol/L Anion Gap 9.9 mmol/L Blood Urea Nitrogen 15 mg/dl Creatinine 1.08 mg/dl Est Creatinine Clear Calc Drug Dose 69.0 ml/min Estimated GFR () 68.4 Estimated GFR (Non- 59.0 BUN/Creatinine Ratio 14.3 Random Glucose 124 mg/dl Lactic Acid Level 3.4 mmol/L Calcium Level 6.5 mg/dl Ionized Calcium 0.93 mmol/l Phosphorus Level 2.7 mg/dl Magnesium Level 1.3 mg/dl Total Bilirubin 8.6 mg/dl Aspartate Amino Transf (AST/SGOT) 53 U/L Alanine Aminotransferase (ALT/SGPT) 20 U/L Alkaline Phosphatase 224 U/L Pro-B-Type Natriuretic Peptide 2351 pg/ml Total Protein 4.6 gm/dl Albumin 1.9 gm/dl Globulin 2.7 gm/dl Albumin/Globulin Ratio 0.7 Procalcitonin 2.28 ng/ml Blood Gas PEEP 18 Bedside Glucose 176 mg/dl Test 07/01/17 12:20 07/01/17 14:40 07/01/17 16:08 White Blood Count 17.15 K/uL Red Blood Count 2.57 M/uL Hemoglobin 8.8 g/dL Hematocrit 26.9 % Mean Corpuscular Volume 104.7 fL Mean Corpuscular Hemoglobin 34.2 pg Mean Corpuscular Hemoglobin Concent 32.7 g/dl RDW Standard Deviation 93.0 fL RDW Coefficient of Variation 24.8 % Platelet Count 154 K/uL Mean Platelet Volume 11.6 fL Nucleated RBC Absolute Count (auto) 0.30 K/uL Nucleated Red Blood Cells % 1.8 % Prothrombin Time 21.0 SECONDS Prothromb Time International Ratio 2.0 Activated Partial Thromboplast Time 44.5 SECONDS Partial Thromboplastin Ratio 1.7 Sodium Level 146 mmol/L Potassium Level 3.8 mmol/L Chloride Level 115 mmol/L Carbon Dioxide Level 15 mmol/L Anion Gap 15.9 mmol/L Blood Urea Nitrogen 15 mg/dl Creatinine 1.09 mg/dl Est Creatinine Clear Calc Drug Dose 68.4 ml/min Estimated GFR () 67.6 Estimated GFR (Non- 58.3 BUN/Creatinine Ratio 14.2 Random Glucose 192 mg/dl Lactic Acid Level 5.4 mmol/L Calcium Level 7.4 mg/dl Ionized Calcium 1.06 mmol/l Phosphorus Level 4.0 mg/dl Magnesium Level 2.2 mg/dl Total Bilirubin 9.6 mg/dl Aspartate Amino Transf (AST/SGOT) 55 U/L Alanine Aminotransferase (ALT/SGPT) 18 U/L Alkaline Phosphatase 241 U/L Total Creatine Kinase 42 U/L Creatine Kinase MB 1.4 ng/ml Creatine Kinase MB Ratio 3.3 Troponin I < 0.015 ng/ml Total Protein 4.7 gm/dl Albumin 1.8 gm/dl Globulin 2.9 gm/dl Albumin/Globulin Ratio 0.6 Influenza Type A Antigen Neg for Influ A Influenza Type B Antigen Neg for Influ B Assessment and Plan 52 yo female with history of alcohol abuse, cirrhosis, c diff colitis who presented with weakness, hypotension, bloody diarrhea, KEVIN, acidosis - Septic shock: suspected source is pneumonia, likely aspiration IV fluids, pressor support with Levophed, Vasopressin, poor UO follow up blood cultures drawn today continue Vanco, Cefepime, Levaquin, Flagyl abdomen calender tender, distended but no acute findings on CT abdomen yesterday - Acute hypoxic respiratory failure, likely from ARDS intubated, ventilator support management per ICU FiO2 down to 80%, saturating 96% follow ABG - Lactic acidosis: likely from shock, monitor LA, fluid support - KEVIN: Cr is improved at 1.06 but urine output is not adequate minimal out today despite 4000cc input via IV continue to monitor Cr q4, follow UO in gil - Anemia: Hb improved to 8.8 h/o slow GI bleeding for weeks per family transfused 2 units PRBC initially, responded well, no further signs of bleeding - Hypokalemia: resolved, continue to monitor - Hypophosphatemia: 2.2 today, replace - Hypomagnesemia: 1.4 again today, replace - Alcoholism, last drink was two days prior to admission place on withdrawal protocol, had some tremors on admission, resolved for time being thiamine and folate daily no signs of DT's - Hyperbilirubinemia: hepatic steatosis on imaging, likely developing cirrhosis with alcoholism history supportive care, continue to monitor, bili down to 8 today, INR going up to 1.8 long talk with patient's daughter and mother at the bedside discussed guarded prognosis, multiple organ systems failing mother will be decision maker, change to Level 5 DNR if heart would stop discussed held with RN and agri business agent present 60 minutes spent with patient today
--- NOTE | 2017-07-01 16:43 | Critical Care Progress Note ---
Critical Care Progress Note Date of Service Jul 01, 2017. Attending Dr. Huerta Subjective Patient with increasing O2 requirement overnight, brought back to ICU She was on BIPAP with 100% O2, but still profoundly hypoxic. Also noted to be hypotensive. In ICU, a left femoral TLC and left femoral a-line were inserted She had a brief episode of bradycardia, hypotension, 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ness, for which she received one amp of epinephrine, with improvement in mental status and BP. Required endotracheal intubation, started on pressors. She has some thin, bilious secretions suctioned from the ET tube. It was very difficult to control her hypoxia, currently on pressure control ventilation. 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 There is a nasogastric tube which passes into the stomach. 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 Continue pressor support Continue fluid resuscitation Was seen by vascular surgery for celiac artery stenosis. No intervention warranted for now. SMA/LISBET are patent Pulmonary: In ARDS now On AC/PC, currently on 80% O2. Peak airway pressure around 34. Pulling tidal volumes of 350-420 ml on pressure control Pulmonary toilet Aim to minimize the GI: Persistent liver failure, total bilirubin hovering around 10 Acute liver failure, possible ischemic hepatitis as well Monitor liver function. Continue treatment for Cdiff colitis Very poor nutritional status, on IV Flagyl and enteric Vanco Protonix ID: Cdiff treatment Also on broad spectrum Abx for PNA: Cefepime, Levaquin, iv Vanco Follow up sputum cultures Renal/metabolic: had KEVIN initially secondary to dehydration, but the renal indices normalize. She will likely develop KEVIN again given her condition. She had extremely poor urine output today On Bicarb drip for significant metabolic acidosis Heme: Monitor CBC. No evidence of bleeding DVT prophylaxis: SCDs, no anticoagulation secondary to bleeding Critical care time spent with patient, reviewing the chart, greater than 120 minutes Her prognosis is dismal at this point, this condition of multiorgan failure in the setting of very poor baseline carries a high mortality rate Her mother and daughter were just updated regarding her condition Transferred to floor today, will sign off Consults & Procedures Consultants: GI: Dr Joseph Vascular: Dr Baron Procedures: 07/01/17: left femoral TLC 07/01/17: left femoral a-line 07/01/17: intubation Data Medications: Current Inpatient Medications Medications (Trade) Dose Ordered Sig/Razia Route Start Time Stop Time Status Last Admin Dose Admin Pantoprazole Sodium 40 mg/ Syringe 10 ml @ 5 mls/min BID IV 06/27/17 09:00 07/27/17 08:59 07/01/17 09:15 5 MLS/MIN Thiamine HCl 100 mg/Syringe 10 ml @ 2 mls/min Q24H IV 06/28/17 11:00 07/28/17 10:59 07/01/17 11:46 2 MLS/MIN Folic Acid 1 mg/ Syringe 10 ml @ 5 mls/min Q24H IV 06/28/17 11:00 07/28/17 10:59 07/01/17 11:46 5 MLS/MIN Lorazepam (Ativan Inj) 1 mg ONE PRN IV 06/27/17 09:15 Enteral Nutritional Formula (Boost Plus Vanilla) 1 can BID PO 06/27/17 21:00 07/27/17 20:59 06/30/17 19:35 1 CAN Ondansetron HCl (Zofran Inj) 4 mg Q6H PRN IV 06/27/17 17:46 07/27/17 17:45 Hydromorphone HCl (Dilaudid Inj) 1 mg Q3HWA PRN IV 06/29/17 09:15 07/13/17 09:14 06/30/17 20:36 1 MG Ioversol (Optiray 320) 125 ml UD PRN IV 06/29/17 14:00 07/03/17 13:59 Vancomycin HCl (Vancomycin Oral Soln) 250 mg Q6H PO 06/30/17 10:00 07/10/17 09:59 07/01/17 11:00 250 MG Raspberry (Raspberry Syrup 5ml Cup) 5 ml Q6H PO 06/30/17 10:00 07/14/17 09:59 07/01/17 11:00 5 ML Albuterol/ Ipratropium (Duoneb) 3 ml Q4 PRN INH 07/01/17 05:30 07/31/17 05:29 07/01/17 10:06 3 ML Levofloxacin 750 mg/Prmx 150 ml @ 100 mls/hr Q24H IV 07/01/17 06:00 07/08/17 05:59 07/01/17 06:25 100 MLS/HR Vancomycin HCl 1500 mg/Sodium Chloride 530 ml @ 200 mls/hr Q16H IV 07/01/17 22:00 07/08/17 05:59 Miscellaneous Information (Consult) 1 ea UD PRN N/A 07/01/17 05:45 07/31/17 05:44 Levofloxacin (Consult) 1 ea UD PRN N/A 07/01/17 06:15 07/31/17 06:14 Methylprednisolone Sodium Succinate 40 mg/Syringe 0.64 ml @ 1.5 mls/min Q8H IV 07/01/17 16:00 07/31/17 15:59 Metronidazole 500 mg/Prmx 100 ml @ 100 mls/hr Q8H IV 07/01/17 10:00 07/07/17 09:59 07/01/17 09:16 100 MLS/HR Cefepime HCl 2000 mg/Syringe 20 ml @ 5 mls/min Q12 IV 07/01/17 09:00 07/08/17 08:59 07/01/17 09:16 5 MLS/MIN Parenteral Electrolyte Solution 1,000 ml @ 100 mls/hr Q10H IV 07/01/17 07:45 07/31/17 07:44 07/01/17 09:26 100 MLS/HR Cefepime HCl (Consult) 1 ea UD PRN N/A 07/01/17 07:45 07/31/17 07:44 Sodium Bicarbonate 150 meq/Dextrose 1,150 ml @ 100 mls/hr Q38H46U IV 07/01/17 11:00 07/31/17 10:59 07/01/17 11:00 100 MLS/HR Norepinephrine Bitartrate 8 mg/ Dextrose 508 ml @ 0 mls/hr Q0M PRN IV 07/01/17 11:15 07/31/17 11:14 Vasopressin 50 units/Sodium Chloride 502.5 ml @ 0 mls/hr Q0M PRN IV 07/01/17 11:53 07/31/17 11:52 Cisatracurium Besylate 40 mg/ Sodium Chloride 100 ml @ 0 mls/hr Q0M PRN IV 07/01/17 12:15 07/31/17 12:14 Midazolam HCl 250 ml @ 0 mls/hr Q0M IV 07/01/17 12:33 07/31/17 12:32 07/01/17 12:42 2 MLS/HR Vital Signs: Date Time Temp Pulse Resp B/P (MAP) Pulse Ox O2 Delivery O2 Flow Rate FiO2 07/01/17 13:50 100 07/01/17 13:27 36.6 102 21 115/56 (75) 98 07/01/17 13:12 104 30 116/56 (76) 96 07/01/17 13:01 107 29 116/55 (75) 94 07/01/17 12:57 107 28 118/56 (76) 94 07/01/17 12:57 107 28 118/56 (76) 94 07/01/17 12:42 109 25 129/62 (84) 87 07/01/17 12:27 113 25 138/68 (91) 90 07/01/17 12:12 104 22 122/56 (78) 100 07/01/17 12:10 100 07/01/17 12:01 102 20 103/44 (63) 76 07/01/17 12:00 99 Mechanical Ventilator 100 07/01/17 12:00 100 07/01/17 11:57 97 30 108/48 (68) 79 07/01/17 11:55 100 07/01/17 11:42 101 22 117/52 (73) 89 07/01/17 11:27 107 25 131/59 (83) 79 07/01/17 11:12 113 23 160/82 (108) 07/01/17 11:02 72 27 56/26 (36) 84 07/01/17 10:57 77 29 60/27 (38) 81 07/01/17 10:42 77 26 67/30 (42) 81 07/01/17 10:27 77 25 71/31 (44) 77 07/01/17 10:12 91 26 103/46 (65) 81 07/01/17 10:07 84 BiPAP 100 07/01/17 10:07 99 30 84 BiPAP/CPAP 100 07/01/17 10:07 92 84 100 07/01/17 10:01 83 25 76/35 (49) 78 07/01/17 09:57 84 25 85/39 (54) 83 07/01/17 09:43 36.7 92 26 77/48 (60) 86 95/44 07/01/17 09:42 91 22 92/42 (59) 86 07/01/17 09:31 87 22 87/39 (55) 85 07/01/17 09:27 89 28 93/43 (60) 89 77/48 (58) 07/01/17 09:27 89 28 78/32 (47) 89 07/01/17 09:15 96 22 90/44 (59) 90 07/01/17 09:01 91 26 78/42 (54) 07/01/17 09:00 91 23 80/42 (55) 07/01/17 08:46 94 29 89/55 (66) 90 07/01/17 08:45 98 24 93/59 (70) 92 07/01/17 08:31 92 24 71/47 (55) 96 07/01/17 08:30 92 25 97 07/01/17 08:15 95 25 77/53 (61) 98 07/01/17 08:01 92 24 74/46 (55) 100 07/01/17 08:00 97 99 100 07/01/17 08:00 92 23 97 07/01/17 07:58 97 24 99 BiPAP/CPAP 100 07/01/17 07:46 95 23 75/47 (56) 98 07/01/17 07:45 87 24 07/01/17 07:45 90 BiPAP 100 07/01/17 07:36 93 23 77/48 (58) 100 07/01/17 07:30 93 23 74/47 (56) 97 07/01/17 07:16 95 23 72/52 (59) 99 07/01/17 07:15 95 24 97 07/01/17 07:14 97 24 81/50 (60) 100 07/01/17 07:00 99 22 95/61 (72) 97 07/01/17 06:49 102 27 86/24 (44) 67 07/01/17 06:01 99 28 62/33 (43) 95 07/01/17 05:37 96 27 64/43 (50) 97 07/01/17 05:23 78 100 07/01/17 04:07 36.3 102 28 92/59 (70) 89 Oxymask 16.0 07/01/17 04:00 Oxymask 15.0 07/01/17 03:03 95 24 92 Mask 15.0 07/01/17 01:40 36.7 105 26 90/52 (65) 90 Oxymask 10.0 07/01/17 00:00 92 Nasal Cannula 6.0 06/30/17 23:38 99 90 Nasal Cannula 6.0 06/30/17 23:28 36.3 95 24 87/56 (66) 91 Nasal Cannula 6.0 06/30/17 20:00 93 Nasal Cannula 3.0 06/30/17 19:51 94/65 (75) 06/30/17 19:06 36.4 97 20 73/48 (56) 90 Nasal Cannula 4.0 72/48 (56) 06/30/17 15:13 95 16 75/47 (56) 90 Room Air 06/30/17 15:03 Room Air Laboratory Results: Last 24 Hours Test 07/01/17 04:20 07/01/17 04:32 07/01/17 06:17 07/01/17 06:40 White Blood Count 15.57 K/uL Red Blood Count 2.78 M/uL Hemoglobin 9.4 g/dL Hematocrit 28.3 % Mean Corpuscular Volume 101.8 fL Mean Corpuscular Hemoglobin 33.8 pg Mean Corpuscular Hemoglobin Concent 33.2 g/dl Platelet Count 148 K/uL Mean Platelet Volume 10.8 fL RDW Standard Deviation 89.8 fL RDW Coefficient of Variation 24.3 % Nucleated RBC Absolute Count (auto) 0.10 K/uL Neutrophils % (Manual) 86.9 % Lymphocytes % (Manual) 9.6 % Monocytes % (Manual) 3.5 % Nucleated Red Blood Cells % 0.6 % Neutrophils # (Manual) 13.53 K/uL Total Absolute Neutrophils 13.53 K/uL Lymphocytes # (Manual) 1.49 K/uL Total Absolute Lymphocytes 1.49 K/uL Monocytes # (Manual) 0.54 K/uL Polychromasia 1+ Anisocytosis PRESENT Echinocytes 1+ Prothrombin Time 18.7 SECONDS Prothromb Time International Ratio 1.8 Activated Partial Thromboplast Time 33.1 SECONDS Partial Thromboplastin Ratio 1.3 Sodium Level 143 mmol/L Potassium Level 4.1 mmol/L Chloride Level 117 mmol/L Carbon Dioxide Level 14 mmol/L Anion Gap 12.0 mmol/L Blood Urea Nitrogen 17 mg/dl Creatinine 1.26 mg/dl Est Creatinine Clear Calc Drug Dose 57.2 ml/min Estimated GFR () 56.7 Estimated GFR (Non- 48.9 BUN/Creatinine Ratio 13.2 Random Glucose 130 mg/dl Lactic Acid Level 5.3 mmol/L Calcium Level 7.1 mg/dl Phosphorus Level 2.2 mg/dl Magnesium Level 1.4 mg/dl Total Bilirubin 10.4 mg/dl Direct Bilirubin 8.6 mg/dl Aspartate Amino Transf (AST/SGOT) 63 U/L Alanine Aminotransferase (ALT/SGPT) 23 U/L Alkaline Phosphatase 302 U/L Ammonia < 10.0 umol/L Total Protein 5.1 gm/dl Albumin 1.6 gm/dl Procalcitonin 2.09 ng/ml Bedside Hemoglobin 8.8 g/dl Bedside Hematocrit 26 % Bedside FiO2 100 % 100 % Bedside Sodium 144 mEq/L Bedside Potassium 4.2 mEq/L Blood Gas Sample Site R Radial Bedside Blood Gas pH (LAB) 7.17 Bedside Blood Gas pCO2 (LAB) 28 mmHg Bedside Blood Gas pO2 (LAB) 103 mmHg Bedside Blood Gas HCO3 (LAB) 11 meq/L Bedside Blood Gas Total CO2 11 mEq/l Bedside Blood Gas Base Excess (LAB) -18.0 meq/L Bedside Blood Gas O2 Saturation 96.0 % Leonidas Test Pass Oxygen Delivery Device BIPAP Bedside Oxygen Rate (breaths/min) 14 Blood Gas IPAP 10 Bedside Glucose 122 mg/dl Test 07/01/17 08:59 07/01/17 09:18 07/01/17 11:27 07/01/17 12:02 Blood Gas Sample Site Art Line Art Line Bedside Blood Gas pH (LAB) 7.15 7.10 Bedside Blood Gas pCO2 (LAB) 38 mmHg 47 mmHg Bedside Blood Gas pO2 (LAB) 50 mmHg 55 mmHg Bedside Blood Gas HCO3 (LAB) 13 meq/L 15 meq/L Bedside Blood Gas Total CO2 15 mEq/l 16 mEq/l Bedside Blood Gas Base Excess (LAB) -16.0 meq/L -15.0 meq/L Bedside Blood Gas O2 Saturation 76.0 % 77.0 % Leonidas Test NA NA Oxygen Delivery Device BIPAP Ventilator Bedside Oxygen Rate (breaths/min) 14 22 Bedside FiO2 100 % 100 % Blood Gas IPAP 12 White Blood Count 12.62 K/uL Red Blood Count 2.38 M/uL Hemoglobin 8.0 g/dL Hematocrit 24.1 % Mean Corpuscular Volume 101.3 fL Mean Corpuscular Hemoglobin 33.6 pg Mean Corpuscular Hemoglobin Concent 33.2 g/dl RDW Standard Deviation 88.6 fL RDW Coefficient of Variation 24.4 % Platelet Count 125 K/uL Mean Platelet Volume 11.1 fL Nucleated RBC Absolute Count (auto) 0.08 K/uL Nucleated Red Blood Cells % 0.6 % Sodium Level 144 mmol/L Potassium Level 4.0 mmol/L Chloride Level 120 mmol/L Carbon Dioxide Level 14 mmol/L Anion Gap 9.9 mmol/L Blood Urea Nitrogen 15 mg/dl Creatinine 1.08 mg/dl Est Creatinine Clear Calc Drug Dose 69.0 ml/min Estimated GFR () 68.4 Estimated GFR (Non- 59.0 BUN/Creatinine Ratio 14.3 Random Glucose 124 mg/dl Lactic Acid Level 3.4 mmol/L Calcium Level 6.5 mg/dl Ionized Calcium 0.93 mmol/l Phosphorus Level 2.7 mg/dl Magnesium Level 1.3 mg/dl Total Bilirubin 8.6 mg/dl Aspartate Amino Transf (AST/SGOT) 53 U/L Alanine Aminotransferase (ALT/SGPT) 20 U/L Alkaline Phosphatase 224 U/L Pro-B-Type Natriuretic Peptide 2351 pg/ml Total Protein 4.6 gm/dl Albumin 1.9 gm/dl Globulin 2.7 gm/dl Albumin/Globulin Ratio 0.7 Procalcitonin 2.28 ng/ml Blood Gas PEEP 18 Bedside Glucose 176 mg/dl Test 07/01/17 12:20 White Blood Count 17.15 K/uL Red Blood Count 2.57 M/uL Hemoglobin 8.8 g/dL Hematocrit 26.9 % Mean Corpuscular Volume 104.7 fL Mean Corpuscular Hemoglobin 34.2 pg Mean Corpuscular Hemoglobin Concent 32.7 g/dl RDW Standard Deviation 93.0 fL RDW Coefficient of Variation 24.8 % Platelet Count 154 K/uL Mean Platelet Volume 11.6 fL Nucleated RBC Absolute Count (auto) 0.30 K/uL Nucleated Red Blood Cells % 1.8 % Prothrombin Time 21.0 SECONDS Prothromb Time International Ratio 2.0 Activated Partial Thromboplast Time 44.5 SECONDS Partial Thromboplastin Ratio 1.7 Sodium Level 146 mmol/L Potassium Level 3.8 mmol/L Chloride Level 115 mmol/L Carbon Dioxide Level 15 mmol/L Anion Gap 15.9 mmol/L Blood Urea Nitrogen 15 mg/dl Creatinine 1.09 mg/dl Est Creatinine Clear Calc Drug Dose 68.4 ml/min Estimated GFR () 67.6 Estimated GFR (Non- 58.3 BUN/Creatinine Ratio 14.2 Random Glucose 192 mg/dl Lactic Acid Level 5.4 mmol/L Calcium Level 7.4 mg/dl Ionized Calcium 1.06 mmol/l Phosphorus Level 4.0 mg/dl Magnesium Level 2.2 mg/dl Total Bilirubin 9.6 mg/dl Aspartate Amino Transf (AST/SGOT) 55 U/L Alanine Aminotransferase (ALT/SGPT) 18 U/L Alkaline Phosphatase 241 U/L Total Creatine Kinase 42 U/L Creatine Kinase MB 1.4 ng/ml Creatine Kinase MB Ratio 3.3 Troponin I < 0.015 ng/ml Total Protein 4.7 gm/dl Albumin 1.8 gm/dl Globulin 2.9 gm/dl Albumin/Globulin Ratio 0.6
--- NOTE | 2017-07-01 16:45 | Pharmacy Progress Note ---
Pharmacy Abx Initial Consult Date of Service Jul 01, 2017. Pharmacy Dosing Scope Date of Consult: 07/01/17 Consultation requested by: Dr. Ferrer Pharmacy is consulted to initiate Vancomycin, Cefepime, and Levaquin IV dosing therapy, order appropriate labs and adjust drug dose/frequency. Objective Height (Feet): 5 Height (Inches): 8.00 Weight (Kilograms): 83.500 Vital Signs (Past 12Hrs) Lab Results (24Hrs) Laboratory Tests (24 Hours) Test 07/01/17 09:18 07/01/17 12:20 07/01/17 16:08 Procalcitonin 2.28 ng/ml (0-0.5) H Total Creatine Kinase 42 U/L (26-192) Micro Results Date/Time Source Procedure Growth Status 07/01/17 05:56 Blood Blood Culture Pending Received 07/01/17 05:52 Blood Blood Culture Pending Received 06/27/17 07:56 Blood Blood Culture - Preliminary NO GROWTH TO DATE. Resulted 06/27/17 07:30 Blood Blood Culture - Preliminary NO GROWTH TO DATE. Resulted 07/01/17 06:50 Nasal MRSA DNA Surveillance Screen - Final Specimen Negative for MRSA by DNA Probe Complete 06/27/17 10:03 Nasal MRSA DNA Surveillance Screen - Final Specimen Negative for MRSA by DNA Probe Complete 06/30/17 19:08 Stool C.difficile Toxin B Gene (PCR) - Final Positive for C. difficile toxin B gene Complete Assessment & Plan Assessment 52 year old female admitted on 06/27 with hypotension and abdominal pain. CT scan revealed ischemic colitis, C.diff positive. Patient treated with Cipro and Flagyl 06/27-07/01 am. She developed acute respiratory distress and was transferred to the ICU overnight. CXR showed new left lower lobe infiltrate. Antibiotic therapy was broadened to cover for sepsis with likely source of aspiration pneumonia. Currently on norepinephrine and vasopressin infusions. Plan Vanc + Cefepime + Levaquin for sepsis secondary to aspiration pneumonia * Vancomycin IV * Loading dose: 2000 mg (25 mg/kg) * Maintenance dose: 1500 mg IV (18 mg/kg) every 16 hours * Goal trough level : 15 to 20 mcg/mL * Trough level ordered for 07/03/17 * Vanc dosing or timing of level may need adjusted if patient continues to do poorly Cefepime * Continue 2000 mg IV every 12 hours for CrCl 30-60 ml/min Levaquin * Continue 750 mg IV every 24 hour for CrCl > 50 ml/min Continue Vanco PO and Flagyl IV for treatment of C.difficile Pharmacy will continue to follow and will adjust dose/frequency as necessary. Thank you.
[2017-07-01] MEDS: NOREPINEPHRINE BIT INJ 8 MG in DEXTROSE 5% 500ML 500 ML IV PRN ×2 (16:53→22:32)
[2017-07-01] MEDS ORDERED: CALCIUM CHLORIDE 10% 1,000 MG in SODIUM CHLORIDE 0.9% 50ML 50 ML IV SCH (18:00)
[2017-07-01 19:53] LABS: HEMATOCRIT 27.9 % (37-47); HEMOGLOBIN 9.3 g/dL (12.0-16.0); MEAN CELL VOLUME 102.6 fL (80-100); MEAN CORPUSCULAR HEMOGLOBIN 34.2 pg (25-34); MEAN CORPUSCULAR HGB CONC 33.3 g/dl (32-36); MEAN PLATELET VOLUME 11.6 fL (7.4-10.4); NUCLEATED RED BLOOD CELL ABS 0.35 K/uL (0-0); PLATELET COUNT 186 K/uL (130-400); RED CELL DISTRIBUTION WIDTH CV 24.8 % (11.5-14.5); RED CELL DISTRIBUTION WIDTH SD 90.8 fL (36.4-46.3)
[2017-07-01 20:27] LABS: CREATININE 1.18 mg/dl (0.60-1.20); POTASSIUM 3.9 mmol/L (3.5-5.1)
[2017-07-01 20:28] LABS: ALBUMIN 1.8 gm/dl (3.4-5.0); CALCIUM 6.9 mg/dl (8.5-10.1); PHOSPHORUS 2.9 mg/dl (2.5-4.9); TOTAL PROTEIN 4.9 gm/dl (6.4-8.2)
--- NOTE | 2017-07-01 21:17 | ECHOCARDIOGRAM REPORT ---
*NOTICE TO RECEIVING CONSTITUTION PARTY AGENCY This information is strictly Confidential and protected under [place] law. [place] law prohibits you from making any further disclosure of this information unless further disclosure is expressly permitted by the written consent of the person to whom it pertains or is authorized by law. A general authorization for the release of medical or other information is not sufficient for this purpose. Hospital accepts no responsibility if the information is made available to any other person, INCLUDING THE PATIENT. Interpretation Summary * Name: AMANDA VILLASENOR Study Date: 07/01/2017 12:39 PM BP: 95/44 mmHg * Patient Location: .[facility]ICU\S\E108\S\1 HR: 92 * : 1965 (M/d/yyyy) Gender: Female Height: 68 in * Age: 52 yrs Ethnicity: CA Weight: 184 lb * Ordering Physician: Иван Huerta * Referring Physician: Self, Referred * Performed By: Fritz Roberts RCS * * Reason For Study: CHF * BSA: 2.0 m2 * -- Conclusions -- * 1. Normal LV size. Normal LV wall thickness. * 2. Normal LV systolic function. LVEF 55-60 %. No regional wall motion abnormalities. * 3. Normal RV size and function. * 4. No significant valvular pathology. * 5. Normal estimated PA and RA pressures. * 6. No prior studies for comparison. Procedure Details * A complete two-dimensional transthoracic echocardiogram was performed (2D, M-mode, Doppler and color flow Doppler). * There were technical limitations due to patient'ssupine positioning while on mechanical ventilation Left Ventricle * The left ventricle is grossly normal size. * There is normal left ventricular wall thickness. * Ejection Fraction = 55-60%. * No regional wall motion abnormalities noted. Right Ventricle * The right ventricle is grossly normal size. * The right ventricular systolic function is normal as assessed by tricuspid annular plane systolic excursion (TAPSE) (normal >1.5 cm). Atria * The left atrial size is normal. * Right atrial size is normal. * No ASD detected; PFO is not assessed. Mitral Valve * The mitral valve is grossly normal. * There is no mitral valve stenosis. * Significant mitral regurgitation is absent. Tricuspid Valve * There is trace tricuspid regurgitation. Aortic Valve * The aortic valve opens well. * No hemodynamically significant valvular aortic stenosis. Pulmonic Valve * The pulmonary valve is inadequately visualized, but the Doppler data is adequate for interpretation. * Pulmonic stenosis is absent. * There is no significant pulmonary regurgitation. Great Vessels * The aortic root and proximal ascending aorta are normal sized. Pericardium/Pleural * There is no pericardial effusion. Great Vessels * Normal inferior vena cava size and collapsability with sniff indicates a normal right atrial pressure of 3 mmHg * There is no evidence of pulmonary hypertension. The PA systolic pressure is less than 36 mmHg. MMode 2D Measurements and Calculations IVSd 0.85 cm IVSs 1.1 cm LVIDd 5.0 cm LVIDs 2.8 cm LVPWd 0.85 cm LVPWs 1.1 cm IVS/LVPW 1.0 FS 44.1 % EDV(Teich) 118.5 ml ESV(Teich) 29.6 ml EF(Teich) 75.1 % EDV(cubed) 125.4 ml ESV(cubed) 22.0 ml EF(cubed) 82.5 % % IVS thick 35.3 % % LVPW thick 29.7 % LV mass(C)d 146.2 grams LV mass(C)dI 74.1 grams/m\S\2 LV mass(C)s 89.0 grams LV mass(C)sI 45.1 grams/m\S\2 SV(Teich) 89.0 ml SI(Teich) 45.1 ml/m\S\2 SV(cubed) 103.4 ml SI(cubed) 52.4 ml/m\S\2 Ao root diam 2.9 cm Ao root area 6.5 cm\S\2 ACS 1.2 cm LA dimension 3.7 cm asc Aorta Diam 2.6 cm LA/Ao 1.3 EDV(MOD-sp4) 71.9 ml ESV(MOD-sp4) 21.2 ml EF(MOD-sp4) 70.5 % EDV(MOD-sp2) 83.3 ml ESV(MOD-sp2) 23.4 ml EF(MOD-sp2) 71.9 % SV(MOD-sp4) 50.7 ml SI(MOD-sp4) 25.7 ml/m\S\2 SV(MOD-sp2) 59.9 ml SI(MOD-sp2) 30.4 ml/m\S\2 Doppler Measurements and Calculations MV E max summer 88.9 cm/sec MV A max summer 100.6 cm/sec MV E/A 0.88 MV P1/2t max summer 105.5 cm/sec MV P1/2t 65.3 msec MVA(P1/2t) 3.4 cm\S\2 MV dec slope 473.3 cm/sec\S\2 MV dec time 0.22 sec Ao V2 max 175.5 cm/sec Ao max PG 12.3 mmHg Ao max PG (full) 5.5 mmHg LV V1 max PG 6.8 mmHg LV V1 max 130.9 cm/sec PA V2 max 95.4 cm/sec PA max PG 3.7 mmHg TR max summer 259.7 cm/sec
[2017-07-01] MEDS: VANCOMYCIN IV 1,500 MG in SODIUM CHLORIDE 0.9% 500ML 500 ML IV SCH (21:20)
[2017-07-01] MEDS: FENTANYL 1250MCG/250ML NSS 250 ML IV PRN (21:26)
[2017-07-01] MEDS ORDERED: INSULIN IV INFUSION PROTOCOL STA (23:28)
[2017-07-01] MEDS ORDERED: INSULIN PROTOCOL GOAL RANGE ONE (23:30)
[2017-07-01] MEDS ORDERED: SEVERE STRESS LEVEL ONE (23:30)
[2017-07-01] MEDS ORDERED: GLUCOSE 10 TABS/TUBE PO PRN (23:45)
[2017-07-01] MEDS ORDERED: DEXTROSE 50% 50 ML SYR IV PRN (23:45)
[2017-07-01] MEDS ORDERED: GLUCAGON FOR INJ 1 MG VIAL SQ PRN (23:45)
[2017-07-01] MEDS ORDERED: GLUCOSE 40% GEL 15 GM TUBE PO PRN (23:45)
[2017-07-02] VITALS (76 sets, daily range): BP systolic 91–132; BP diastolic 59–82; PULSE 58–78; TEMP 35.7–37.7; O2SAT 94–100; Ht 172.7 cm; Wt 98.1 kg
[2017-07-02] MEDS ORDERED: NovoLIN R BOLUS FROM BAG IV ONE
[2017-07-02] MEDS: INSULIN REGULAR 250 UNITS in SODIUM CHLORIDE 0.9% 250ML 250 ML IV SCH (00:18)
[2017-07-02 00:20] LABS: HEMATOCRIT 26.9 % (37-47); HEMOGLOBIN 8.9 g/dL (12.0-16.0); MEAN CELL VOLUME 102.3 fL (80-100); MEAN CORPUSCULAR HEMOGLOBIN 33.8 pg (25-34); MEAN CORPUSCULAR HGB CONC 33.1 g/dl (32-36); NUCLEATED RED BLOOD CELL ABS 0.39 K/uL (0-0); PLATELET COUNT 167 K/uL (130-400); RED CELL DISTRIBUTION WIDTH CV 24.9 % (11.5-14.5); RED CELL DISTRIBUTION WIDTH SD 89.6 fL (36.4-46.3); WHITE BLOOD COUNT 19.28 K/uL (4.8-10.8)
[2017-07-02] MEDS: METHYLPREDNISOLONE IV 40 MG in SYRINGE 0 ML IV SCH ×4 (00:20→23:04)
[2017-07-02] MEDS: ALBUMIN HUMAN 5% 12.5 GM/250 ML VIAL IV SCH ×2 (00:22→05:15)
[2017-07-02 00:46] LABS: CREATININE 1.18 mg/dl (0.60-1.20)
[2017-07-02 00:47] LABS: POTASSIUM 3.8 mmol/L (3.5-5.1)
[2017-07-02 00:48] LABS: CALCIUM 6.9 mg/dl (8.5-10.1); TOTAL PROTEIN 4.8 gm/dl (6.4-8.2)
[2017-07-02 00:49] LABS: ALBUMIN 1.7 gm/dl (3.4-5.0)
[2017-07-02 00:50] LABS: PHOSPHORUS 2.6 mg/dl (2.5-4.9)
[2017-07-02] MEDS: CISATRACURIUM BESYLATE INJ 40 MG in SODIUM CHLORIDE 0.9% 100ML 80 ML IV PRN ×2 (01:46→19:29)
[2017-07-02] MEDS: METRONIDAZOLE / NSS 500 MG in PREMIXED NSS 100 ML IV SCH ×3 (01:49→17:49)
[2017-07-02] MEDS: RASPBERRY SYRUP 5 ML UDP PO SCH ×4 (04:00→20:44)
[2017-07-02 04:02] LABS: HEMATOCRIT 26.5 % (37-47); HEMOGLOBIN 8.7 g/dL (12.0-16.0); MEAN CELL VOLUME 102.3 fL (80-100); MEAN CORPUSCULAR HEMOGLOBIN 33.6 pg (25-34); MEAN CORPUSCULAR HGB CONC 32.8 g/dl (32-36); MEAN PLATELET VOLUME 10.8 fL (7.4-10.4); NUCLEATED RED BLOOD CELL ABS 0.31 K/uL (0-0); PLATELET COUNT 150 K/uL (130-400); RED CELL DISTRIBUTION WIDTH CV 24.9 % (11.5-14.5); RED CELL DISTRIBUTION WIDTH SD 90.1 fL (36.4-46.3); WHITE BLOOD COUNT 16.96 K/uL (4.8-10.8)
[2017-07-02 04:09] LABS: ISTAT POTASSIUM 3.4 mEq/L (3.3-5.0)
[2017-07-02 04:14] LABS: PTT PATIENT 42.9 SECONDS (21.0-31.0)
[2017-07-02 04:25] LABS: BASO % 0.5 %; BASO ABS # 0.09 K/uL (0-0.2); IG# 1.03 K/uL (0.00-0.02); LYMPH % 5.8 %; LYMPH ABS # 0.98 K/uL (1.2-3.4); MONO % 3.7 %; MONO ABS # 0.62 K/uL (0.11-0.59); NEUT % 83.9 %; NEUT ABS # 14.24 K/uL (1.4-6.5)
[2017-07-02 04:35] LABS: CREATININE 1.08 mg/dl (0.60-1.20)
[2017-07-02 04:36] LABS: CALCIUM 6.4 mg/dl (8.5-10.1); POTASSIUM 3.4 mmol/L (3.5-5.1)
[2017-07-02 04:37] LABS: PHOSPHORUS 2.2 mg/dl (2.5-4.9); TOTAL PROTEIN 4.9 gm/dl (6.4-8.2)
[2017-07-02] MEDS ORDERED: SODIUM BICARB 8.4% INJ 50 MEQ/50 ML SYR IV STA (04:53)
[2017-07-02] MEDS ORDERED: POTASSIUM CHLORIDE 20 MEQ/15 ML UDC PO STA (05:10)
[2017-07-02] MEDS: LEVOFLOXACIN / D5W 750 MG in PREMIXED IN D5W 150 ML IV SCH (05:16)
[2017-07-02] MEDS: VANCOMYCIN HCL 250 MG/5 ML SOLN PO SCH ×4 (05:16→20:44)
[2017-07-02] MEDS ORDERED: MAGNESIUM SULFATE 1GM / D5W 1 GM in PREMIXED IN D5W 100 ML IV ONE (05:30)
[2017-07-02] MEDS: SODIUM BICARBONATE 8.4% INJ 150 MEQ, POTASSIUM CHLORIDE INJ 20 MEQ in DEXTROSE 5% 1000M... IV SCH ×2 (06:09→17:50)
[2017-07-02] MEDS ORDERED: POTASSIUM CHLR 20 MEQ / WTR 20 MEQ in PREMIXED WATER 100 ML IV ONE (06:30)
--- NOTE | 2017-07-02 07:45 | DIAGNOSTIC IMAGING REPORT ---
SINGLE VIEW CHEST CLINICAL HISTORY: ARDS. FINDINGS: An AP, portable, upright chest radiograph is compared to study dated 07/01/2017. The examination is degraded by portable technique and apical lordotic positioning. Endotracheal and enteric tubes are unchanged in position. The heart is top normal for projection. Diffuse bilateral airspace opacities are unchanged. No large pleural effusion or pneumothorax is seen. The bony thorax is grossly intact. IMPRESSION: 1. Diffuse bilateral airspace opacities are similar in appearance to the 07/01/2017 examination. Differential considerations include ARDS, pulmonary edema, pulmonary hemorrhage, and/or multifocal pneumonia. 2. Stable lines and tubes. Electronically signed by: Reg Ly M.D. 07/02/2017 7:44 AM Dictated Date/Time: 07/02/2017 7:43 AM
[2017-07-02] MEDS: IPRATROPIUM BROMIDE HFA INHALER INH SCH ×4 (07:49→20:00)
[2017-07-02] MEDS: ALBUTEROL HFA 8 GM INHALER INH SCH ×4 (07:49→20:00)
[2017-07-02] MEDS: INSULIN ASPART 100 UNITS/ML 3 ML PEN SC SCH ×4 (07:56→21:00)
[2017-07-02 08:00] LABS: HEMOGLOBIN A1C 4.8 % (4.5-5.6)
[2017-07-02] MEDS ORDERED: INSULIN ASPART 100 UNITS/ML 3 ML PEN SC SCH ×2 (08:00→23:45)
[2017-07-02] MEDS: NOREPINEPHRINE BIT INJ 8 MG in DEXTROSE 5% 500ML 500 ML IV PRN ×2 (08:08→23:05)
[2017-07-02 08:15] LABS: HEMATOCRIT 25.9 % (37-47); HEMOGLOBIN 8.5 g/dL (12.0-16.0); MEAN CELL VOLUME 102.4 fL (80-100); MEAN CORPUSCULAR HEMOGLOBIN 33.6 pg (25-34); MEAN CORPUSCULAR HGB CONC 32.8 g/dl (32-36); NUCLEATED RED BLOOD CELL ABS 0.28 K/uL (0-0); PLATELET COUNT 136 K/uL (130-400); RED CELL DISTRIBUTION WIDTH CV 24.8 % (11.5-14.5); RED CELL DISTRIBUTION WIDTH SD 90.3 fL (36.4-46.3)
[2017-07-02] MEDS: BOOST PLUS VANILLA PO SCH ×2 (08:40→20:41)
[2017-07-02 08:42] LABS: CREATININE 1.07 mg/dl (0.60-1.20)
[2017-07-02 08:43] LABS: ALBUMIN 2.2 gm/dl (3.4-5.0); CALCIUM 6.7 mg/dl (8.5-10.1); PHOSPHORUS 1.8 mg/dl (2.5-4.9); POTASSIUM 3.7 mmol/L (3.5-5.1)
[2017-07-02] MEDS: CEFEPIME IV 2,000 MG in SYRINGE 7.5 ML IV SCH ×2 (08:44→17:05)
[2017-07-02] MEDS: PANTOprazole INJ 40 MG in SYRINGE 0 ML IV SCH ×2 (08:45→20:43)
[2017-07-02] MEDS: VASOPRESSIN INJ 50 UNITS in SODIUM CHLORIDE 0.9% 500ML 500 ML IV PRN (09:00)
[2017-07-02] MEDS: MIDAZOLAM 125MG/250ML D5W 250 ML IV SCH (09:38)
[2017-07-02] MEDS: FENTANYL 1250MCG/250ML NSS 250 ML IV PRN (09:38)
[2017-07-02] MEDS: FoLIC ACID INJ 1 MG in SYRINGE 9.8 ML IV SCH (10:39)
[2017-07-02] MEDS: ASCORBIC ACID INJ 1,500 MG in NSS 100 ML IV SCH ×3 (10:39→20:43)
[2017-07-02] MEDS: THIAMINE HCL INJ 100 MG in SYRINGE 9 ML IV SCH (10:39)
--- NOTE | 2017-07-02 10:52 | SURGICAL CONSULTATION ---
DATE OF CONSULTATION: 07/02/2017 REASON FOR CONSULTATION: I have been asked by Dr. Hernandez to see this 52-year-old female who was originally admitted with rectal bleeding. HISTORY OF PRESENT ILLNESS: Over the last 5 days, she has developed sepsis. She is presently in the intensive care unit. History is obtained from the medical staff and her chart. She is on vasopressin, insulin drip and bicarbonate drip. Her lactic acid remains elevated. She has a history of cirrhosis. She has recently developed ARDS. She may have developed aspiration pneumonia as well. She is C. diff positive. She has not, however, had bowel movements over the last 2 days. PAST MEDICAL HISTORY: Includes the cirrhosis as a result of chronic alcohol abuse. She has hypertension and there is a history of lung nodules. PAST SURGICAL HISTORY: Listed only for cholecystectomy. MEDICATIONS: At the present time include the vasopressin, insulin drip, bicarbonate drip, albuterol, Atrovent, vancomycin, fentanyl, methylprednisolone, midazolam, metronidazole, cefepime, Dilaudid, raspberry syrup, thiamine, folic acid, Zofran, lorazepam, pantoprazole. ALLERGIES: TO CODEINE, INDOMETHACIN, IODINE, PEACH, PENICILLINS, SULFA, ANTIBIOTICS. PHYSICAL EXAMINATION: GENERAL: Reveals a sedated, paralyzed female who is intubated. VITAL SIGNS: Most recently, blood pressure 125/73 with support, her heart rate is 75, respiratory rate is 26, but she is ventilated with an FiO2 of 70% and her pulse oximetry is 98%. Most recent temperature 35.7 HEENT: Sclerae are icteric. LUNGS: Have rhonchi scattered throughout. HEART: Regular. ABDOMEN: Has absent bowel sounds, is distended and firm. Tenderness cannot be assessed. LABORATORY DATA: Most recently a WBC of 15.3, which is decreased from 21.8 with an H&H of 8.5 and 25.9 and a platelet count of 136,000. Sodium 140, potassium 3.7, chloride 108, CO2 21, BUN 16, creatinine 1.07, glucose 219. Lactic acid 3.0, calcium 6.7, total bilirubin 9.3, AST 54, ALT 18, alkaline phosphatase 208, albumin is 2.2. CT scan with angiography from 06/29/2017 was reviewed. 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 There was small bilateral pleural effusions. There was no evidence of bowel obstruction. There was small amount of free pelvic fluid. She has diffuse body wall edema. The tip of the right lobe of her liver extends below the umbilicus. ASSESSMENT AND PLAN: This patient has sepsis with etiology not clearly determined. Possibilities include pneumonia versus ischemic bowel versus Clostridium difficile colitis. This patient has indication with the Clostridium difficile for total abdominal colectomy with formation of ileostomy; however, considering her acute respiratory distress syndrome, lactic acidosis despite bicarbonate drip, need for pressors to support blood pressure, acute respiratory distress syndrome, possible pneumonia, she is at extremely high risk for surgical intervention and the likelihood is that she would not survive an operation. I agree with discussion with the family regarding possible comfort measures. Thank you for allowing me to see this patient and participate in her care. We will follow with you.
--- NOTE | 2017-07-02 10:53 | Critical Care Progress Note ---
Critical Care Progress Note Date of Service Jul 02, 2017. ICU Day ICU Day Number: [address] Hernandez Subjective Unable to obtain due to pt mental status or condition. Lengthy discussion with nursing. ON: added fentanyl gtt, insulin gtt, albumin 5 % q6hx3d, changed fluids to D5W + 3amps HCO3 + 20KCL, gave one amp HCO3 at 0515 , 1g mag and 40 PO/20 IV KCL. She was also pressor levophed 8mg. She put out 290cc urine x 24 hours about 100-125cc per shift. 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 Now with liver failure in the setting of alcoholic cirrhosis, respiratory failure/ARDS on mechanical ventilation. 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 SMA/LISBET patent. No intervention at this time Pressor support: vasopressin 50 and Levophed 8 PULM: In ARDS On PC - 70% O2; PEEP 18 (goal - high peep; low O2). Peak airway pressure 34 Pulm Toilet: alubterol 4 puffs Q4H; Atrovent 4 puffs Q4H ENDO: Methylpred 40mg Q8H (on meduri protocol) GI: NPO due to NM blockade Persistent liver failure; total bilirubin today 9.3 Continue recurrent C.diff Colitis treatment: Vanc PO day 3; Flagyl IV day 2 Consulted surgery: high mortality risk for colectomy at this time Vit C and Thiamine cocktail ID: PNA and C.diff colitis PNA - antibiotic regimen narrowed to IV vanc day 2 (for 72 hrs) and Cefepime day 2 RENAL/METABOLIC: KEVIN likely 2/2 dehydration/sepsis; renal function normalized Decreasing urine output Volume overloaded by +23L On sodium bicarbonate 150meq/KCL 20meq at 100mls/hr for metabolic acidosis and hypokalemia Received Mag sulf 1g IV; KCL 40meq PO and 20meq IV HEME: monitor CBC. No evidence of bleeding DVT Prophylaxis: Heparin 5000 units BID; SCDs PROGNOSIS: poor given high mortality in the setting of severe sepsis and multi- organ failure and poor baseline healthy Palliative care consulted Family Meeting: maintain current care plan, do not escalate care, would like to avoid surgery at this point; will reassess if condition worsens Resident Physician Supervision Note: Dr. Horton was resident physician during care of patient. I separately evaluated patient and did history and exam. I discussed the case with the resident and generally agree with the findings and plan. Patient is critically ill due to severe ARDS; P to F ratio approximately 150, significant hepatic insufficiency, septic shock on vasoactive medications. Discussed the case with Dr. Choe of general surgery, patient not optimal surgical candidate. Concern for severe C. difficile. Will add vancomycin enemas. I had an extensive discussion with the patient's mother who is her healthcare surrogate at this time regarding prognosis as well as treatment and management. Patient was not able to participate as she is under neuromuscular blockade intubated and sedated. Patient was made DNR in event of cardiac arrest yesterday. We discussed that the patient is gravely ill with multisystem organ failure. At this time the family has opted for no escalation of care should the patient continue to worsen clinically. If that were to occur they would consider comfort care options at this time. With regards to acute respiratory distress syndrome we will continue empiric neuromuscular blockade for 48 hours. She is Gianluca been started on high-dose steroids we will transition to a Meduri protocol. We are also instituting high-dose vitamin C as well as continue thiamine. The patient was discussed on multidisciplinary rounds as well as individual bedside rounds. I have personally spent 120 minutes of critical care time in the direct management of this patient. This is a life/limb threatening event. This includes time spent evaluating patient, direct bedside care, chart review, placing orders, interpretation of diagnostic studies, discussion with consultants, patient, and/or family members regarding treatment decisions, as well as other required patient management activities. This time is exclusive of all separately billable procedures, and teaching time and separate from and in addition to any other critical care service time. Documented By: Jericho Hernandez DO Consults & Procedures Consultants: GI: Dr Joseph Vascular: Dr Baron General Surgery: Dr. Choe Procedures: 07/01/17: left femoral TLC 07/01/17: left femoral a-line 07/01/17: intubation Data Medications: Current Inpatient Medications Medications (Trade) Dose Ordered Sig/Razia Route Start Time Stop Time Status Last Admin Dose Admin Pantoprazole Sodium 40 mg/ Syringe 10 ml @ 5 mls/min BID IV 06/27/17 09:00 07/27/17 08:59 07/02/17 08:45 5 MLS/MIN Thiamine HCl 100 mg/Syringe 10 ml @ 2 mls/min Q24H IV 06/28/17 11:00 07/28/17 10:59 07/01/17 11:46 2 MLS/MIN Folic Acid 1 mg/ Syringe 10 ml @ 5 mls/min Q24H IV 06/28/17 11:00 07/28/17 10:59 07/01/17 11:46 5 MLS/MIN Lorazepam (Ativan Inj) 1 mg ONE PRN IV 06/27/17 09:15 Enteral Nutritional Formula (Boost Plus Vanilla) 1 can BID PO 06/27/17 21:00 07/27/17 20:59 06/30/17 19:35 1 CAN Ondansetron HCl (Zofran Inj) 4 mg Q6H PRN IV 06/27/17 17:46 07/27/17 17:45 Hydromorphone HCl (Dilaudid Inj) 1 mg Q3HWA PRN IV 06/29/17 09:15 07/13/17 09:14 06/30/17 20:36 1 MG Ioversol (Optiray 320) 125 ml UD PRN IV 06/29/17 14:00 07/03/17 13:59 Vancomycin HCl (Vancomycin Oral Soln) 250 mg Q6H PO 06/30/17 10:00 07/10/17 09:59 07/02/17 09:49 250 MG Raspberry (Raspberry Syrup 5ml Cup) 5 ml Q6H PO 06/30/17 10:00 07/14/17 09:59 07/01/17 21:21 5 ML Albuterol/ Ipratropium (Duoneb) 3 ml Q4 PRN INH 07/01/17 05:30 07/31/17 05:29 Future Hold 07/01/17 10:06 3 ML Vancomycin HCl 1500 mg/Sodium Chloride 530 ml @ 200 mls/hr Q16H IV 07/01/17 22:00 07/08/17 05:59 07/01/17 21:20 200 MLS/HR Miscellaneous Information (Consult) 1 ea UD PRN N/A 07/01/17 05:45 07/31/17 05:44 Methylprednisolone Sodium Succinate 40 mg/Syringe 0.64 ml @ 1.5 mls/min Q8H IV 07/01/17 16:00 07/31/17 15:59 07/02/17 08:06 1.5 MLS/MIN Metronidazole 500 mg/Prmx 100 ml @ 100 mls/hr Q8H IV 07/01/17 10:00 07/07/17 09:59 07/02/17 09:49 100 MLS/HR Cefepime HCl 2000 mg/Syringe 20 ml @ 5 mls/min Q12 IV 07/01/17 09:00 07/08/17 08:59 07/02/17 08:44 5 MLS/MIN Cefepime HCl (Consult) 1 ea UD PRN N/A 07/01/17 07:45 07/31/17 07:44 Norepinephrine Bitartrate 8 mg/ Dextrose 508 ml @ 0 mls/hr Q0M PRN IV 07/01/17 11:15 07/31/17 11:14 07/02/17 08:08 62.5 MLS/HR Vasopressin 50 units/Sodium Chloride 502.5 ml @ 0 mls/hr Q0M PRN IV 07/01/17 11:53 07/31/17 11:52 Cisatracurium Besylate 40 mg/ Sodium Chloride 100 ml @ 0 mls/hr Q0M PRN IV 07/01/17 12:15 07/03/17 12:14 07/02/17 01:46 6.3 MLS/HR Midazolam HCl 250 ml @ 0 mls/hr Q0M IV 07/01/17 12:33 07/31/17 12:32 07/02/17 09:38 16 MLS/HR Fentanyl Citrate 250 ml @ 0 mls/hr Q0M PRN IV 07/01/17 21:15 07/15/17 21:14 07/02/17 09:38 20 MLS/HR Insulin Human Regular 250 units/ Sodium Chloride 252.5 ml @ 0 mls/hr Q24H IV 07/02/17 00:00 08/01/17 00:00 07/02/17 00:18 3.1 MLS/HR Insulin Aspart (novoLOG ASPART) SLIDING SCALE HS SC 07/02/17 08:00 08/01/17 07:59 Glucose (Glucose 40% Gel) 15-30 GRAMS 15 GRAMS... UD PRN PO 07/01/17 23:45 07/31/17 23:44 Glucose (Glucose Chew Tab) 4-8 Tablets 4 Tabl... UD PRN PO 07/01/17 23:45 07/31/17 23:44 Dextrose (Dextrose 50% 50ML Syringe) 25-50ML OF 50% DW IV FOR... UD PRN IV 07/01/17 23:45 07/31/17 23:44 Glucagon (Glucagon Inj) 1 mg UD PRN SQ 07/01/17 23:45 07/31/17 23:44 Sodium Bicarbonate 150 meq/Potassium Chloride 20 meq/ Dextrose 1,160 ml @ 100 mls/hr [id number] IV 07/02/17 05:30 07/31/17 05:29 07/02/17 06:09 100 MLS/HR Albuterol (Ventolin Hfa Inhaler) 4 puffs Q4R INH 07/02/17 08:00 08/01/17 07:59 07/02/17 07:49 4 PUFFS Ipratropium [place] (Atrovent Hfa Inhaler) 4 puffs Q4R INH 07/02/17 08:00 08/01/17 07:59 07/02/17 07:49 4 PUFFS Ascorbic Acid 1500 mg/Sodium Chloride 103 ml @ 206 mls/hr Q6H IV 07/02/17 10:00 07/06/17 04:29 I & O: Net fluid positive > 23L; 24hrs Is/Os: - 6212/390 net +5822 UOP rate = 0.14 cc/ kg/hr Vital Signs: Date Time Temp Pulse Resp B/P (MAP) Pulse Ox O2 Delivery O2 Flow Rate FiO2 07/02/17 08:14 75 26 125/73 (90) 98 Mechanical Ventilator 70 101/67 (78) 07/02/17 08:00 35.7 72 26 123/72 (89) 99 07/02/17 07:50 75 26 98 Mechanical Ventilator 70 07/02/17 07:34 70 07/02/17 07:00 66 26 113/66 (82) 98 07/02/17 06:01 68 26 116/68 (84) 98 Mechanical Ventilator 70 07/02/17 06:00 68 26 116/68 (84) 98 07/02/17 05:24 70 07/02/17 05:00 36.3 67 26 112/64 (80) 100 07/02/17 05:00 67 26 (82) 100 112/64 07/02/17 04:01 76 26 99/69 (88) 99 120/69 07/02/17 04:01 76 26 120/69 (86) 99 Mechanical Ventilator 80 07/02/17 04:00 75 26 (90) 100 122/70 07/02/17 04:00 80 07/02/17 04:00 Mechanical Ventilator 80 07/02/17 03:00 74 26 114/66 (82) 97 07/02/17 03:00 74 26 (83) 97 114/66 07/02/17 02:16 80 07/02/17 02:01 75 26 115/65 (82) 97 07/02/17 02:01 75 26 91/63 (82) 97 115/65 07/02/17 01:00 77 108/63 (78) 98 07/02/17 00:01 74 26 92/59 (77) 95 106/61 07/02/17 00:01 37.7 74 26 106/61 (76) 95 Mechanical Ventilator 70 07/01/17 23:59 Mechanical Ventilator 70 07/01/17 23:59 70 07/01/17 23:14 80 07/01/17 23:00 77 26 (74) 93 103/58 07/01/17 23:00 77 26 103/58 (73) 93 07/01/17 22:45 79 26 102/57 (72) 92 07/01/17 22:30 83 26 98/54 (69) 92 07/01/17 22:15 83 26 110/60 (77) 92 07/01/17 22:01 90 26 100/66 (82) 92 121/63 07/01/17 22:01 90 26 121/63 (82) 92 07/01/17 22:00 90 26 120/63 (82) 91 07/01/17 21:45 76 26 129/75 (93) 95 07/01/17 21:30 77 26 134/77 (96) 96 07/01/17 21:15 77 26 127/76 (93) 95 07/01/17 21:00 78 26 (101) 96 136/79 07/01/17 21:00 78 26 136/79 (98) 96 07/01/17 20:45 77 26 136/80 (98) 97 07/01/17 20:42 80 07/01/17 20:30 78 26 127/74 (91) 96 07/01/17 20:15 78 26 133/78 (96) 98 07/01/17 20:01 36.7 78 26 132/77 (95) 98 07/01/17 20:01 78 26 115/72 (98) 98 132/77 07/01/17 20:00 70 07/01/17 20:00 Mechanical Ventilator 70 07/01/17 20:00 78 26 (98) 98 132/77 07/01/17 18:27 80 26 121/66 (84) 95 07/01/17 18:12 88 26 128/70 (89) 95 07/01/17 18:01 82 26 117/63 (81) 94 07/01/17 17:57 84 26 116/63 (80) 94 07/01/17 17:42 83 116/61 (79) 94 07/01/17 17:27 86 26 114/60 (78) 93 07/01/17 17:26 80 07/01/17 17:12 88 26 111/58 (75) 92 07/01/17 16:57 94 119/58 (78) 91 07/01/17 16:42 98 26 141/74 (96) 89 07/01/17 16:32 Mechanical Ventilator 80 07/01/17 16:30 80 07/01/17 16:27 86 26 115/59 (77) 95 07/01/17 16:12 36.7 87 26 115/59 (77) 95 07/01/17 16:12 87 26 115/59 (77) 95 07/01/17 16:01 85 26 111/57 (75) 96 07/01/17 15:57 87 26 113/58 (76) 95 07/01/17 15:42 91 26 115/59 (77) 95 07/01/17 15:27 92 26 112/56 (74) 95 07/01/17 15:12 92 26 109/54 (72) 94 07/01/17 14:57 93 26 109/53 (71) 94 07/01/17 14:42 96 27 119/59 (79) 92 07/01/17 14:27 92 21 110/55 (73) 96 07/01/17 14:27 92 21 110/55 (73) 96 07/01/17 14:12 94 28 111/55 (73) 99 07/01/17 14:01 96 27 116/59 (78) 100 07/01/17 13:57 97 21 117/59 (78) 99 07/01/17 13:50 100 07/01/17 13:42 99 28 116/58 (77) 99 07/01/17 13:27 36.6 102 21 115/56 (75) 98 07/01/17 13:27 102 21 115/56 (75) 98 07/01/17 13:12 104 30 116/56 (76) 96 07/01/17 13:01 107 29 116/55 (75) 94 07/01/17 12:57 107 28 118/56 (76) 94 07/01/17 12:57 107 28 118/56 (76) 94 07/01/17 12:42 109 25 129/62 (84) 87 07/01/17 12:27 113 25 138/68 (91) 90 07/01/17 12:12 104 22 122/56 (78) 100 07/01/17 12:10 100 07/01/17 12:01 102 20 103/44 (63) 76 07/01/17 12:00 99 Mechanical Ventilator 100 07/01/17 12:00 100 07/01/17 11:57 97 30 108/48 (68) 79 07/01/17 11:55 100 07/01/17 11:42 101 22 117/52 (73) 89 07/01/17 11:27 107 25 131/59 (83) 79 07/01/17 11:12 113 23 160/82 (108) 07/01/17 11:02 72 27 56/26 (36) 84 07/01/17 10:57 77 29 60/27 (38) 81 07/01/17 10:42 77 26 67/30 (42) 81 Laboratory Results: Last 24 Hours Test 07/01/17 11:27 07/01/17 12:02 07/01/17 12:20 07/01/17 14:40 Blood Gas Sample Site Art Line Bedside Blood Gas pH (LAB) 7.10 Bedside Blood Gas pCO2 (LAB) 47 mmHg Bedside Blood Gas pO2 (LAB) 55 mmHg Bedside Blood Gas HCO3 (LAB) 15 meq/L Bedside Blood Gas Total CO2 16 mEq/l Bedside Blood Gas Base Excess (LAB) -15.0 meq/L Bedside Blood Gas O2 Saturation 77.0 % Leonidas Test NA Oxygen Delivery Device Ventilator Bedside Oxygen Rate (breaths/min) 22 Bedside FiO2 100 % Blood Gas PEEP 18 Bedside Glucose 176 mg/dl White Blood Count 17.15 K/uL Red Blood Count 2.57 M/uL Hemoglobin 8.8 g/dL Hematocrit 26.9 % Mean Corpuscular Volume 104.7 fL Mean Corpuscular Hemoglobin 34.2 pg Mean Corpuscular Hemoglobin Concent 32.7 g/dl RDW Standard Deviation 93.0 fL RDW Coefficient of Variation 24.8 % Platelet Count 154 K/uL Mean Platelet Volume 11.6 fL Nucleated RBC Absolute Count (auto) 0.30 K/uL Nucleated Red Blood Cells % 1.8 % Prothrombin Time 21.0 SECONDS Prothromb Time International Ratio 2.0 Activated Partial Thromboplast Time 44.5 SECONDS Partial Thromboplastin Ratio 1.7 Sodium Level 146 mmol/L Potassium Level 3.8 mmol/L Chloride Level 115 mmol/L Carbon Dioxide Level 15 mmol/L Anion Gap 15.9 mmol/L Blood Urea Nitrogen 15 mg/dl Creatinine 1.09 mg/dl Est Creatinine Clear Calc Drug Dose 68.4 ml/min Estimated GFR () 67.6 Estimated GFR (Non- 58.3 BUN/Creatinine Ratio 14.2 Random Glucose 192 mg/dl Lactic Acid Level 5.4 mmol/L Calcium Level 7.4 mg/dl Ionized Calcium 1.06 mmol/l Phosphorus Level 4.0 mg/dl Magnesium Level 2.2 mg/dl Total Bilirubin 9.6 mg/dl Aspartate Amino Transf (AST/SGOT) 55 U/L Alanine Aminotransferase (ALT/SGPT) 18 U/L Alkaline Phosphatase 241 U/L Total Creatine Kinase 42 U/L Creatine Kinase MB 1.4 ng/ml Creatine Kinase MB Ratio 3.3 Troponin I < 0.015 ng/ml Total Protein 4.7 gm/dl Albumin 1.8 gm/dl Globulin 2.9 gm/dl Albumin/Globulin Ratio 0.6 Influenza Type A Antigen Neg for Influ A Influenza Type B Antigen Neg for Influ B Test 07/01/17 15:14 07/01/17 16:08 07/01/17 16:33 07/01/17 18:24 Blood Gas Sample Site Art Line Bedside Blood Gas pH (LAB) 7.23 Bedside Blood Gas pCO2 (LAB) 35 mmHg Bedside Blood Gas pO2 (LAB) 70 mmHg Bedside Blood Gas HCO3 (LAB) 15 meq/L Bedside Blood Gas Total CO2 16 mEq/l Bedside Blood Gas Base Excess (LAB) -13.0 meq/L Bedside Blood Gas O2 Saturation 91.0 % Leonidas Test NA Oxygen Delivery Device Ventilator Bedside Oxygen Rate (breaths/min) 26 Bedside FiO2 80 % Blood Gas PEEP 18 Lactic Acid Level 4.0 mmol/L Ionized Calcium 0.96 mmol/l Bedside Glucose 307 mg/dl Test 07/01/17 19:46 07/01/17 20:40 07/02/17 00:12 07/02/17 00:15 White Blood Count 21.80 K/uL 19.28 K/uL Red Blood Count 2.72 M/uL 2.63 M/uL Hemoglobin 9.3 g/dL 8.9 g/dL Hematocrit 27.9 % 26.9 % Mean Corpuscular Volume 102.6 fL 102.3 fL Mean Corpuscular Hemoglobin 34.2 pg 33.8 pg Mean Corpuscular Hemoglobin Concent 33.3 g/dl 33.1 g/dl RDW Standard Deviation 90.8 fL 89.6 fL RDW Coefficient of Variation 24.8 % 24.9 % Platelet Count 186 K/uL 167 K/uL Mean Platelet Volume 11.6 fL 11.0 fL Nucleated RBC Absolute Count (auto) 0.35 K/uL 0.39 K/uL Nucleated Red Blood Cells % 1.6 % 2.0 % Sodium Level 142 mmol/L 140 mmol/L Potassium Level 3.9 mmol/L 3.8 mmol/L Chloride Level 111 mmol/L 109 mmol/L Carbon Dioxide Level 18 mmol/L 19 mmol/L Anion Gap 13.0 mmol/L 11.8 mmol/L Blood Urea Nitrogen 16 mg/dl 16 mg/dl Creatinine 1.18 mg/dl 1.18 mg/dl Est Creatinine Clear Calc Drug Dose 63.2 ml/min 63.2 ml/min Estimated GFR () 61.4 61.4 Estimated GFR (Non- 53.0 53.0 BUN/Creatinine Ratio 13.6 13.4 Random Glucose 291 mg/dl 311 mg/dl Lactic Acid Level 3.4 mmol/L 2.9 mmol/L Calcium Level 6.9 mg/dl 6.9 mg/dl Ionized Calcium 0.94 mmol/l 0.94 mmol/l Phosphorus Level 2.9 mg/dl 2.6 mg/dl Magnesium Level 1.8 mg/dl 1.6 mg/dl Total Bilirubin 10.1 mg/dl 9.8 mg/dl Aspartate Amino Transf (AST/SGOT) 60 U/L 58 U/L Alanine Aminotransferase (ALT/SGPT) 20 U/L 19 U/L Alkaline Phosphatase 248 U/L 227 U/L Total Protein 4.9 gm/dl 4.8 gm/dl Albumin 1.8 gm/dl 1.7 gm/dl Globulin 3.1 gm/dl 3.1 gm/dl Albumin/Globulin Ratio 0.6 0.6 Blood Gas Sample Site Art Line Art Line Bedside Blood Gas pH (LAB) 7.27 7.23 Bedside Blood Gas pCO2 (LAB) 34 mmHg 40 mmHg Bedside Blood Gas pO2 (LAB) 71 mmHg 67 mmHg Bedside Blood Gas HCO3 (LAB) 16 meq/L 17 meq/L Bedside Blood Gas Total CO2 17 mEq/l 18 mEq/l Bedside Blood Gas Base Excess (LAB) -11.0 meq/L -10.0 meq/L Bedside Blood Gas O2 Saturation 93.0 % 90.0 % Leonidas Test NA NA Oxygen Delivery Device Ventilator Ventilator Bedside Oxygen Rate (breaths/min) 26 26 Bedside FiO2 70 % 70 % Blood Gas PEEP 18 18 Beta-Hydroxybutyric Acid 2.47 mg/dL Test 07/02/17 03:53 07/02/17 03:56 07/02/17 04:49 07/02/17 05:46 White Blood Count 16.96 K/uL Red Blood Count 2.59 M/uL Hemoglobin 8.7 g/dL Hematocrit 26.5 % Mean Corpuscular Volume 102.3 fL Mean Corpuscular Hemoglobin 33.6 pg Mean Corpuscular Hemoglobin Concent 32.8 g/dl Platelet Count 150 K/uL Mean Platelet Volume 10.8 fL Neutrophils (%) (Auto) 83.9 % Lymphocytes (%) (Auto) 5.8 % Monocytes (%) (Auto) 3.7 % Eosinophils (%) (Auto) 0.0 % Basophils (%) (Auto) 0.5 % Neutrophils # (Auto) 14.24 K/uL Lymphocytes # (Auto) 0.98 K/uL Monocytes # (Auto) 0.62 K/uL Eosinophils # (Auto) 0.00 K/uL Basophils # (Auto) 0.09 K/uL RDW Standard Deviation 90.1 fL RDW Coefficient of Variation 24.9 % Immature Granulocyte % (Auto) 6.1 % Immature Granulocyte # (Auto) 1.03 K/uL Nucleated RBC Absolute Count (auto) 0.31 K/uL Nucleated Red Blood Cells % 1.8 % Polychromasia 1+ Anisocytosis PRESENT Prothrombin Time 20.9 SECONDS Prothromb Time International Ratio 2.0 Activated Partial Thromboplast Time 42.9 SECONDS Partial Thromboplastin Ratio 1.7 Sodium Level 141 mmol/L Potassium Level 3.4 mmol/L Chloride Level 110 mmol/L Carbon Dioxide Level 19 mmol/L Anion Gap 12.0 mmol/L Blood Urea Nitrogen 16 mg/dl Creatinine 1.08 mg/dl Est Creatinine Clear Calc Drug Dose 69.0 ml/min Estimated GFR () 68.4 Estimated GFR (Non- 59.0 BUN/Creatinine Ratio 14.8 Random Glucose 267 mg/dl Estimated Average Glucose 91 mg/dl Hemoglobin A1c 4.8 % Lactic Acid Level 2.8 mmol/L Calcium Level 6.4 mg/dl Ionized Calcium 0.93 mmol/l Phosphorus Level 2.2 mg/dl Magnesium Level 1.5 mg/dl Total Bilirubin 9.6 mg/dl Direct Bilirubin 8.1 mg/dl Aspartate Amino Transf (AST/SGOT) 54 U/L Alanine Aminotransferase (ALT/SGPT) 21 U/L Alkaline Phosphatase 220 U/L Total Protein 4.9 gm/dl Albumin 2.0 gm/dl Globulin 2.9 gm/dl Albumin/Globulin Ratio 0.7 Bedside Hemoglobin 9.5 g/dl Bedside Hematocrit 28 % Bedside FiO2 80 % Bedside Sodium 143 mEq/L Bedside Potassium 3.4 mEq/L Bedside Glucose (other) 243 mg/dl 243 mg/dl Test 07/02/17 06:34 07/02/17 07:53 07/02/17 08:02 07/02/17 08:54 Bedside Glucose (other) 258 mg/dl 242 mg/dl 219 mg/dl White Blood Count 15.30 K/uL Red Blood Count 2.53 M/uL Hemoglobin 8.5 g/dL Hematocrit 25.9 % Mean Corpuscular Volume 102.4 fL Mean Corpuscular Hemoglobin 33.6 pg Mean Corpuscular Hemoglobin Concent 32.8 g/dl RDW Standard Deviation 90.3 fL RDW Coefficient of Variation 24.8 % Platelet Count 136 K/uL Mean Platelet Volume 11.0 fL Nucleated RBC Absolute Count (auto) 0.28 K/uL Nucleated Red Blood Cells % 1.8 % Sodium Level 140 mmol/L Potassium Level 3.7 mmol/L Chloride Level 108 mmol/L Carbon Dioxide Level 21 mmol/L Anion Gap 11.0 mmol/L Blood Urea Nitrogen 16 mg/dl Creatinine 1.07 mg/dl Est Creatinine Clear Calc Drug Dose 74.1 ml/min Estimated GFR () 69.1 Estimated GFR (Non- 59.6 BUN/Creatinine Ratio 15.0 Random Glucose 251 mg/dl Lactic Acid Level 3.0 mmol/L Calcium Level 6.7 mg/dl Ionized Calcium 0.90 mmol/l Phosphorus Level 1.8 mg/dl Magnesium Level 1.8 mg/dl Total Bilirubin 9.3 mg/dl Aspartate Amino Transf (AST/SGOT) 54 U/L Alanine Aminotransferase (ALT/SGPT) 18 U/L Alkaline Phosphatase 208 U/L Total Protein 5.0 gm/dl Albumin 2.2 gm/dl Globulin 2.8 gm/dl Albumin/Globulin Ratio 0.8 Test 07/02/17 10:06 Bedside Glucose (other) 202 mg/dl
[2017-07-02] MEDS: VANCOMYCIN IV 1,500 MG in SODIUM CHLORIDE 0.9% 500ML 500 ML IV SCH (13:59)
[2017-07-02] MEDS: HEPARIN SOD 5000 UNIT/0.5 ML CARP SQ SCH ×2 (14:00→23:03)
--- NOTE | 2017-07-02 16:00 | Palliative Care Consultation ---
Consultation Date of Consultation: Jul 02, 2017. Requesting Physician: Dr. Hernandez Attending Physician: Dr. Ferrer Reason for Consultation: Goals of care History of Present Illness This 52 year old female patient with PMH C. Diff (September 2016), asthma, HTN, anxiety, alcohol abuse, tobacco abuse, non-bleeding gastric ulcer, anemia, severe fatty liver disease, and s/p cholecystectomy, presented to the ED with c/ o abdominal pain and bloating for a week and a half. CT abd/pelvis showed diffuse colitis and diffuse fatty infiltration of the liver. Patient is C. Diff positive as well. She unfortunately continued to decline from a respiratory standpoint and was transferred to ICU requiring intubation over the weekend. Patient is septic, likely source is bowel, and is now in severe ARDS. General surgery was consulted today to evaluate patient and they determined that her risk is too high at this time for surgery. Patient's prognosis is quite grim at this point. Palliative care is consulted to assist with establishing goals of care. Family meeting was held by Dr. Hernandez and myself with patient's mother Jaki and brother Bart. Patient is intubated, sedated, and chemically paralyzed at this time, so she is unable to participate in any conversation. Lengthy discussion held with family. Dr Hernandez fully explained in detail about patient 's medical conditions and critically ill state. Family verbalized understanding and seem to have a good grasp on the severity of the situation. Family states that at this point, they want NO ESCALATION IN CARE if things worsen, but would like to continue with current medical management for 24-48 hours and assess for improvement. Again, if patient worsens, they do not want any escalation in care including surgery, dialysis, or transfer to another facility. Past Medical/Surgical History Medical History: 1. Non-Bleeding Gastric Ulcer 2. HTN 3. Macrocytic Anemia 4. Alcohol Abuse 5. Severe Fatty Liver 6. Anxiety 7. Asthma 8. C. Diff (2017) 9. S/P [place] Social History Smoking Status: Current Every Day Smoker History of Alcohol Use: Yes (HX ABUSE ) Drug Use: none Marital Status: single Housing Status: lives alone, other Occupation Status: employed Review of Systems unable to obtain due to patient condition Allergies Coded Allergies: Penicillins (Verified Allergy, Intermediate, RASH/HIVES, 06/27/17) Sulfa Antibiotics (Verified Allergy, Intermediate, HIVES, 06/27/17) Codeine (Verified Allergy, Unknown, ., 06/27/17) has tolerated morphine on multiple occasions while hospitalized Indomethacin (Verified Allergy, Unknown, 06/27/17) Iodine (Verified Allergy, Unknown, 06/27/17) Stark (Verified Allergy, Unknown, 06/27/17) Medications Current Inpatient Medications Medications (Trade) Dose Ordered Sig/Razia Route Start Time Stop Time Status Last Admin Dose Admin Pantoprazole Sodium 40 mg/ Syringe 10 ml @ 5 mls/min BID IV 06/27/17 09:00 07/27/17 08:59 07/02/17 08:45 5 MLS/MIN Thiamine HCl 100 mg/Syringe 10 ml @ 2 mls/min Q24H IV 06/28/17 11:00 07/28/17 10:59 07/02/17 10:39 2 MLS/MIN Folic Acid 1 mg/ Syringe 10 ml @ 5 mls/min Q24H IV 06/28/17 11:00 07/28/17 10:59 07/02/17 10:39 5 MLS/MIN Lorazepam (Ativan Inj) 1 mg ONE PRN IV 06/27/17 09:15 Enteral Nutritional Formula (Boost Plus Vanilla) 1 can BID PO 06/27/17 21:00 07/27/17 20:59 06/30/17 19:35 1 CAN Ondansetron HCl (Zofran Inj) 4 mg Q6H PRN IV 06/27/17 17:46 07/27/17 17:45 Hydromorphone HCl (Dilaudid Inj) 1 mg Q3HWA PRN IV 06/29/17 09:15 07/13/17 09:14 06/30/17 20:36 1 MG Ioversol (Optiray 320) 125 ml UD PRN IV 06/29/17 14:00 07/03/17 13:59 Vancomycin HCl (Vancomycin Oral Soln) 250 mg Q6H PO 06/30/17 10:00 07/10/17 09:59 07/02/17 09:49 250 MG Raspberry (Raspberry Syrup 5ml Cup) 5 ml Q6H PO 06/30/17 10:00 07/14/17 09:59 07/01/17 21:21 5 ML Albuterol/ Ipratropium (Duoneb) 3 ml Q4 PRN INH 07/01/17 05:30 07/31/17 05:29 Future Hold 07/01/17 10:06 3 ML Vancomycin HCl 1500 mg/Sodium Chloride 530 ml @ 200 mls/hr Q16H IV 07/01/17 22:00 07/08/17 05:59 07/02/17 13:59 200 MLS/HR Miscellaneous Information (Consult) 1 ea UD PRN N/A 07/01/17 05:45 07/31/17 05:44 Methylprednisolone Sodium Succinate 40 mg/Syringe 0.64 ml @ 1.5 mls/min Q8H IV 07/01/17 16:00 07/31/17 15:59 07/02/17 08:06 1.5 MLS/MIN Metronidazole 500 mg/Prmx 100 ml @ 100 mls/hr Q8H IV 07/01/17 10:00 07/07/17 09:59 07/02/17 09:49 100 MLS/HR Cefepime HCl 2000 mg/Syringe 20 ml @ 5 mls/min Q12 IV 07/01/17 09:00 07/08/17 08:59 07/02/17 08:44 5 MLS/MIN Cefepime HCl (Consult) 1 ea UD PRN N/A 07/01/17 07:45 07/31/17 07:44 Norepinephrine Bitartrate 8 mg/ Dextrose 508 ml @ 0 mls/hr Q0M PRN IV 07/01/17 11:15 07/31/17 11:14 07/02/17 08:08 62.5 MLS/HR Vasopressin 50 units/Sodium Chloride 502.5 ml @ 0 mls/hr Q0M PRN IV 07/01/17 11:53 07/31/17 11:52 07/02/17 09:00 24 MLS/HR Cisatracurium Besylate 40 mg/ Sodium Chloride 100 ml @ 0 mls/hr Q0M PRN IV 07/01/17 12:15 07/03/17 12:14 07/02/17 01:46 6.3 MLS/HR Midazolam HCl 250 ml @ 0 mls/hr Q0M IV 07/01/17 12:33 07/31/17 12:32 07/02/17 09:38 16 MLS/HR Fentanyl Citrate 250 ml @ 0 mls/hr Q0M PRN IV 07/01/17 21:15 07/15/17 21:14 07/02/17 09:38 20 MLS/HR Insulin Human Regular 250 units/ Sodium Chloride 252.5 ml @ 0 mls/hr Q24H IV 07/02/17 00:00 08/01/17 00:00 07/02/17 00:18 3.1 MLS/HR Insulin Aspart (novoLOG ASPART) [facility] 07/02/17 08:00 08/01/17 07:59 Glucose (Glucose 40% Gel) 15-30 GRAMS 15 GRAMS... UD PRN PO 07/01/17 23:45 07/31/17 23:44 Glucose (Glucose Chew Tab) 4-8 Tablets 4 Tabl... UD PRN PO 07/01/17 23:45 07/31/17 23:44 Dextrose (Dextrose 50% 50ML Syringe) 25-50ML OF 50% DW IV FOR... UD PRN IV 07/01/17 23:45 07/31/17 23:44 Glucagon (Glucagon Inj) 1 mg UD PRN SQ 07/01/17 23:45 07/31/17 23:44 Sodium Bicarbonate 150 meq/Potassium Chloride 20 meq/ Dextrose 1,160 ml @ 100 mls/hr [id number] IV 07/02/17 05:30 07/31/17 05:29 07/02/17 06:09 100 MLS/HR Albuterol (Ventolin Hfa Inhaler) 4 puffs Q4R INH 07/02/17 08:00 08/01/17 07:59 07/02/17 11:34 4 PUFFS Ipratropium [place] (Atrovent Hfa Inhaler) 4 puffs Q4R INH 07/02/17 08:00 08/01/17 07:59 07/02/17 11:34 4 PUFFS Ascorbic Acid 1500 mg/Sodium Chloride 103 ml @ 206 mls/hr Q6H IV 07/02/17 10:00 07/06/17 04:29 07/02/17 10:39 206 MLS/HR Heparin Sodium (Porcine) (Heparin Sq 5000 Unit/0.5ml) 5,000 unit Q8H SQ 07/02/17 14:00 08/01/17 13:59 07/02/17 14:00 5,000 UNIT Physical Exam Date Time Temp Pulse Resp B/P (MAP) Pulse Ox O2 Delivery O2 Flow Rate FiO2 07/02/17 13:45 73 26 116/71 (86) 95 07/02/17 13:30 64 26 96/75 (82) 97 07/02/17 13:15 65 26 109/66 (80) 97 07/02/17 13:00 64 26 108/66 (80) 96 07/02/17 12:45 63 26 108/66 (80) 96 07/02/17 12:30 63 26 107/65 (79) 96 07/02/17 12:15 64 26 108/66 (80) 96 07/02/17 12:00 50 07/02/17 12:00 Mechanical Ventilator 50 07/02/17 12:00 36.6 65 26 107/65 (79) 96 Mechanical Ventilator 50 07/02/17 11:30 67 26 113/67 (82) 96 07/02/17 11:17 50 07/02/17 11:15 67 26 116/70 (85) 98 07/02/17 11:00 68 26 113/68 (83) 98 07/02/17 10:45 78 26 125/76 (92) 94 07/02/17 10:30 65 26 118/71 (87) 96 07/02/17 10:15 64 26 114/70 (85) 96 07/02/17 10:00 65 26 114/69 (84) 96 07/02/17 09:45 63 26 118/71 (87) 98 07/02/17 09:34 64 26 105/71 (82) 98 07/02/17 09:30 64 26 123/74 (90) 98 07/02/17 09:15 67 26 107/64 (78) 97 07/02/17 09:00 70 26 104/61 (75) 97 07/02/17 08:45 69 26 111/66 (81) 99 07/02/17 08:30 70 26 108/64 (79) 99 07/02/17 08:15 75 26 119/70 (86) 98 07/02/17 08:14 75 26 125/73 (90) 98 Mechanical Ventilator 70 101/67 (78) 07/02/17 08:00 Mechanical Ventilator 70 07/02/17 08:00 70 07/02/17 08:00 35.7 72 26 123/72 (89) 99 07/02/17 08:00 Mechanical Ventilator 70 07/02/17 07:50 75 26 98 Mechanical Ventilator 70 07/02/17 07:34 70 07/02/17 07:00 66 26 113/66 (82) 98 07/02/17 06:01 68 26 116/68 (84) 98 Mechanical Ventilator 70 07/02/17 06:00 68 26 116/68 (84) 98 07/02/17 05:24 70 07/02/17 05:00 36.3 67 26 112/64 (80) 100 07/02/17 05:00 67 26 (82) 100 112/64 07/02/17 04:01 76 26 99/69 (88) 99 120/69 07/02/17 04:01 76 26 120/69 (86) 99 Mechanical Ventilator 80 07/02/17 04:00 75 26 (90) 100 122/70 07/02/17 04:00 80 07/02/17 04:00 Mechanical Ventilator 80 07/02/17 03:00 74 26 114/66 (82) 97 07/02/17 03:00 74 26 (83) 97 114/66 07/02/17 02:16 80 07/02/17 02:01 75 26 115/65 (82) 97 07/02/17 02:01 75 26 91/63 (82) 97 115/65 07/02/17 01:00 77 108/63 (78) 98 07/02/17 00:01 74 26 92/59 (77) 95 106/61 07/02/17 00:01 37.7 74 26 106/61 (76) 95 Mechanical Ventilator 70 07/01/17 23:59 Mechanical Ventilator 70 07/01/17 23:59 70 07/01/17 23:14 80 07/01/17 23:00 77 26 (74) 93 103/58 07/01/17 23:00 77 26 103/58 (73) 93 07/01/17 22:45 79 26 102/57 (72) 92 07/01/17 22:30 83 26 98/54 (69) 92 07/01/17 22:15 83 26 110/60 (77) 92 07/01/17 22:01 90 26 100/66 (82) 92 121/63 07/01/17 22:01 90 26 121/63 (82) 92 07/01/17 22:00 90 26 120/63 (82) 91 07/01/17 21:45 76 26 129/75 (93) 95 07/01/17 21:30 77 26 134/77 (96) 96 07/01/17 21:15 77 26 127/76 (93) 95 07/01/17 21:00 78 26 (101) 96 136/79 07/01/17 21:00 78 26 136/79 (98) 96 07/01/17 20:45 77 26 136/80 (98) 97 07/01/17 20:42 80 07/01/17 20:30 78 26 127/74 (91) 96 07/01/17 20:15 78 26 133/78 (96) 98 07/01/17 20:01 36.7 78 26 132/77 (95) 98 07/01/17 20:01 78 26 115/72 (98) 98 132/77 07/01/17 20:00 70 07/01/17 20:00 Mechanical Ventilator 70 07/01/17 20:00 78 26 (98) 98 132/77 07/01/17 18:27 80 26 121/66 (84) 95 07/01/17 18:12 88 26 128/70 (89) 95 07/01/17 18:01 82 26 117/63 (81) 94 07/01/17 17:57 84 26 116/63 (80) 94 07/01/17 17:42 83 116/61 (79) 94 07/01/17 17:27 86 26 114/60 (78) 93 07/01/17 17:26 80 07/01/17 17:12 88 26 111/58 (75) 92 07/01/17 16:57 94 119/58 (78) 91 07/01/17 16:42 98 26 141/74 (96) 89 07/01/17 16:32 Mechanical Ventilator 80 07/01/17 16:30 80 07/01/17 16:27 86 26 115/59 (77) 95 07/01/17 16:12 36.7 87 26 115/59 (77) 95 07/01/17 16:12 87 26 115/59 (77) 95 07/01/17 16:01 85 26 111/57 (75) 96 07/01/17 15:57 87 26 113/58 (76) 95 07/01/17 15:42 91 26 115/59 (77) 95 07/01/17 15:27 92 26 112/56 (74) 95 07/01/17 15:12 92 26 109/54 (72) 94 07/01/17 14:57 93 26 109/53 (71) 94 07/01/17 14:42 96 27 119/59 (79) 92 07/01/17 14:27 92 21 110/55 (73) 96 07/01/17 14:27 92 21 110/55 (73) 96 General Appearance: no apparent distress ENT: + pertinent finding (ETT present) Neck: no JVD Respiratory: + rhonchi (coarse throughout), + pertinent finding (on mechanical ventilatory in no distress. ) Cardiovascular: regular rate, rhythm, + pertinent finding (widespread edema all over body) Abdomen: normal bowel sounds Neurologic/Psychiatric: + pertinent finding (obtunded/sedated/paralyzed) Skin: + jaundice Laboratory Results Last 24 Hours Test 07/01/17 14:40 07/01/17 15:14 07/01/17 16:08 07/01/17 16:33 Influenza Type A Antigen Neg for Influ A Influenza Type B Antigen Neg for Influ B Blood Gas Sample Site Art Line Bedside Blood Gas pH (LAB) 7.23 Bedside Blood Gas pCO2 (LAB) 35 mmHg Bedside Blood Gas pO2 (LAB) 70 mmHg Bedside Blood Gas HCO3 (LAB) 15 meq/L Bedside Blood Gas Total CO2 16 mEq/l Bedside Blood Gas Base Excess (LAB) -13.0 meq/L Bedside Blood Gas O2 Saturation 91.0 % Leonidas Test NA Oxygen Delivery Device Ventilator Bedside Oxygen Rate (breaths/min) 26 Bedside FiO2 80 % Blood Gas PEEP 18 Lactic Acid Level 4.0 mmol/L Ionized Calcium 0.96 mmol/l Test 07/01/17 18:24 07/01/17 19:46 07/01/17 20:40 07/01/17 23:28 Bedside Glucose 307 mg/dl 294 mg/dl White Blood Count 21.80 K/uL Red Blood Count 2.72 M/uL Hemoglobin 9.3 g/dL Hematocrit 27.9 % Mean Corpuscular Volume 102.6 fL Mean Corpuscular Hemoglobin 34.2 pg Mean Corpuscular Hemoglobin Concent 33.3 g/dl RDW Standard Deviation 90.8 fL RDW Coefficient of Variation 24.8 % Platelet Count 186 K/uL Mean Platelet Volume 11.6 fL Nucleated RBC Absolute Count (auto) 0.35 K/uL Nucleated Red Blood Cells % 1.6 % Sodium Level 142 mmol/L Potassium Level 3.9 mmol/L Chloride Level 111 mmol/L Carbon Dioxide Level 18 mmol/L Anion Gap 13.0 mmol/L Blood Urea Nitrogen 16 mg/dl Creatinine 1.18 mg/dl Est Creatinine Clear Calc Drug Dose 63.2 ml/min Estimated GFR () 61.4 Estimated GFR (Non- 53.0 BUN/Creatinine Ratio 13.6 Random Glucose 291 mg/dl Lactic Acid Level 3.4 mmol/L Calcium Level 6.9 mg/dl Ionized Calcium 0.94 mmol/l Phosphorus Level 2.9 mg/dl Magnesium Level 1.8 mg/dl Total Bilirubin 10.1 mg/dl Aspartate Amino Transf (AST/SGOT) 60 U/L Alanine Aminotransferase (ALT/SGPT) 20 U/L Alkaline Phosphatase 248 U/L Total Protein 4.9 gm/dl Albumin 1.8 gm/dl Globulin 3.1 gm/dl Albumin/Globulin Ratio 0.6 Blood Gas Sample Site Art Line Bedside Blood Gas pH (LAB) 7.27 Bedside Blood Gas pCO2 (LAB) 34 mmHg Bedside Blood Gas pO2 (LAB) 71 mmHg Bedside Blood Gas HCO3 (LAB) 16 meq/L Bedside Blood Gas Total CO2 17 mEq/l Bedside Blood Gas Base Excess (LAB) -11.0 meq/L Bedside Blood Gas O2 Saturation 93.0 % Leonidas Test NA Oxygen Delivery Device Ventilator Bedside Oxygen Rate (breaths/min) 26 Bedside FiO2 70 % Blood Gas PEEP 18 Test 07/02/17 00:12 07/02/17 00:15 07/02/17 01:43 07/02/17 02:30 White Blood Count 19.28 K/uL Red Blood Count 2.63 M/uL Hemoglobin 8.9 g/dL Hematocrit 26.9 % Mean Corpuscular Volume 102.3 fL Mean Corpuscular Hemoglobin 33.8 pg Mean Corpuscular Hemoglobin Concent 33.1 g/dl RDW Standard Deviation 89.6 fL RDW Coefficient of Variation 24.9 % Platelet Count 167 K/uL Mean Platelet Volume 11.0 fL Nucleated RBC Absolute Count (auto) 0.39 K/uL Nucleated Red Blood Cells % 2.0 % Sodium Level 140 mmol/L Potassium Level 3.8 mmol/L Chloride Level 109 mmol/L Carbon Dioxide Level 19 mmol/L Anion Gap 11.8 mmol/L Blood Urea Nitrogen 16 mg/dl Creatinine 1.18 mg/dl Est Creatinine Clear Calc Drug Dose 63.2 ml/min Estimated GFR () 61.4 Estimated GFR (Non- 53.0 BUN/Creatinine Ratio 13.4 Random Glucose 311 mg/dl Lactic Acid Level 2.9 mmol/L Calcium Level 6.9 mg/dl Ionized Calcium 0.94 mmol/l Phosphorus Level 2.6 mg/dl Magnesium Level 1.6 mg/dl Total Bilirubin 9.8 mg/dl Aspartate Amino Transf (AST/SGOT) 58 U/L Alanine Aminotransferase (ALT/SGPT) 19 U/L Alkaline Phosphatase 227 U/L Total Protein 4.8 gm/dl Albumin 1.7 gm/dl Globulin 3.1 gm/dl Albumin/Globulin Ratio 0.6 Beta-Hydroxybutyric Acid 2.47 mg/dL Blood Gas Sample Site Art Line Bedside Blood Gas pH (LAB) 7.23 Bedside Blood Gas pCO2 (LAB) 40 mmHg Bedside Blood Gas pO2 (LAB) 67 mmHg Bedside Blood Gas HCO3 (LAB) 17 meq/L Bedside Blood Gas Total CO2 18 mEq/l Bedside Blood Gas Base Excess (LAB) -10.0 meq/L Bedside Blood Gas O2 Saturation 90.0 % Leonidas Test NA Oxygen Delivery Device Ventilator Bedside Oxygen Rate (breaths/min) 26 Bedside FiO2 70 % Blood Gas PEEP 18 Bedside Glucose 276 mg/dl 271 mg/dl Test 07/02/17 03:41 07/02/17 03:53 07/02/17 03:56 07/02/17 04:49 Bedside Glucose 262 mg/dl White Blood Count 16.96 K/uL Red Blood Count 2.59 M/uL Hemoglobin 8.7 g/dL Hematocrit 26.5 % Mean Corpuscular Volume 102.3 fL Mean Corpuscular Hemoglobin 33.6 pg Mean Corpuscular Hemoglobin Concent 32.8 g/dl Platelet Count 150 K/uL Mean Platelet Volume 10.8 fL Neutrophils (%) (Auto) 83.9 % Lymphocytes (%) (Auto) 5.8 % Monocytes (%) (Auto) 3.7 % Eosinophils (%) (Auto) 0.0 % Basophils (%) (Auto) 0.5 % Neutrophils # (Auto) 14.24 K/uL Lymphocytes # (Auto) 0.98 K/uL Monocytes # (Auto) 0.62 K/uL Eosinophils # (Auto) 0.00 K/uL Basophils # (Auto) 0.09 K/uL RDW Standard Deviation 90.1 fL RDW Coefficient of Variation 24.9 % Immature Granulocyte % (Auto) 6.1 % Immature Granulocyte # (Auto) 1.03 K/uL Nucleated RBC Absolute Count (auto) 0.31 K/uL Nucleated Red Blood Cells % 1.8 % Polychromasia 1+ Anisocytosis PRESENT Prothrombin Time 20.9 SECONDS Prothromb Time International Ratio 2.0 Activated Partial Thromboplast Time 42.9 SECONDS Partial Thromboplastin Ratio 1.7 Sodium Level 141 mmol/L Potassium Level 3.4 mmol/L Chloride Level 110 mmol/L Carbon Dioxide Level 19 mmol/L Anion Gap 12.0 mmol/L Blood Urea Nitrogen 16 mg/dl Creatinine 1.08 mg/dl Est Creatinine Clear Calc Drug Dose 69.0 ml/min Estimated GFR () 68.4 Estimated GFR (Non- 59.0 BUN/Creatinine Ratio 14.8 Random Glucose 267 mg/dl Estimated Average Glucose 91 mg/dl Hemoglobin A1c 4.8 % Lactic Acid Level 2.8 mmol/L Calcium Level 6.4 mg/dl Ionized Calcium 0.93 mmol/l Phosphorus Level 2.2 mg/dl Magnesium Level 1.5 mg/dl Total Bilirubin 9.6 mg/dl Direct Bilirubin 8.1 mg/dl Aspartate Amino Transf (AST/SGOT) 54 U/L Alanine Aminotransferase (ALT/SGPT) 21 U/L Alkaline Phosphatase 220 U/L Total Protein 4.9 gm/dl Albumin 2.0 gm/dl Globulin 2.9 gm/dl Albumin/Globulin Ratio 0.7 Bedside Hemoglobin 9.5 g/dl Bedside Hematocrit 28 % Bedside FiO2 80 % Bedside Sodium 143 mEq/L Bedside Potassium 3.4 mEq/L Bedside Glucose (other) 243 mg/dl Test 07/02/17 05:46 07/02/17 06:34 07/02/17 07:53 07/02/17 08:02 Bedside Glucose (other) 243 mg/dl 258 mg/dl 242 mg/dl White Blood Count 15.30 K/uL Red Blood Count 2.53 M/uL Hemoglobin 8.5 g/dL Hematocrit 25.9 % Mean Corpuscular Volume 102.4 fL Mean Corpuscular Hemoglobin 33.6 pg Mean Corpuscular Hemoglobin Concent 32.8 g/dl RDW Standard Deviation 90.3 fL RDW Coefficient of Variation 24.8 % Platelet Count 136 K/uL Mean Platelet Volume 11.0 fL Nucleated RBC Absolute Count (auto) 0.28 K/uL Nucleated Red Blood Cells % 1.8 % Sodium Level 140 mmol/L Potassium Level 3.7 mmol/L Chloride Level 108 mmol/L Carbon Dioxide Level 21 mmol/L Anion Gap 11.0 mmol/L Blood Urea Nitrogen 16 mg/dl Creatinine 1.07 mg/dl Est Creatinine Clear Calc Drug Dose 74.1 ml/min Estimated GFR () 69.1 Estimated GFR (Non- 59.6 BUN/Creatinine Ratio 15.0 Random Glucose 251 mg/dl Lactic Acid Level 3.0 mmol/L Calcium Level 6.7 mg/dl Ionized Calcium 0.90 mmol/l Phosphorus Level 1.8 mg/dl Magnesium Level 1.8 mg/dl Total Bilirubin 9.3 mg/dl Aspartate Amino Transf (AST/SGOT) 54 U/L Alanine Aminotransferase (ALT/SGPT) 18 U/L Alkaline Phosphatase 208 U/L Total Protein 5.0 gm/dl Albumin 2.2 gm/dl Globulin 2.8 gm/dl Albumin/Globulin Ratio 0.8 Test 07/02/17 08:54 07/02/17 10:06 07/02/17 11:35 07/02/17 13:37 Bedside Glucose (other) 219 mg/dl 202 mg/dl 179 mg/dl 150 mg/dl Assessment & Plan Palliative Performance Scale: 10 % Problem list: Obtundation Abdominal pain C. diff colitis Sepsis Alcoholic cirrhosis ARDS, severe Goals of care Palliative care recs: discussed with patient's mother Jaki and brother Bart, along with Dr. Hernandez. -Patient is DNR in case of cardiac arrest. -Continue currently medical management for 24-48 hours and assess for improvement. NO ESCALATION IN CARE if patient's condition worsens. Family specifically would not want dialysis or transfer to another facility at this time. They are understanding that patient is too high risk for surgery at this time and they are okay with just continuing medical management. -If patient's condition worsens, family is leaning towards transitioning to comfort measures only. Thank you kindly for this consult. I will follow as needed. Total time spent 70 minutes with >50% of time spent with patient's family discussing goals and plan of care.
[2017-07-02 16:01] LABS: CALCIUM 6.5 mg/dl (8.5-10.1); CREATININE 0.98 mg/dl (0.60-1.20); POTASSIUM 3.7 mmol/L (3.5-5.1)
--- NOTE | 2017-07-02 17:08 | PROGRESS NOTE ---
DATE: 07/02/2017 The patient continues to be hospitalized in the ICU on a ventilator. She has a left lower lobe pneumonia, C. diff, alcohol related cirrhosis with acute alcoholic hepatitis and probably ischemic bowel. The patient is on supportive measures at this time and has improved since yesterday. Blood pressure is 115/72, pulse 66, respirations 26, O2 saturations 98%. IMPRESSION: The patient has multisystem disease and prognosis is very guarded. There was a meeting with palliative care today with the patient's mother and brother and they want to maintain her current level of care for the next 24-48 hours to see if she declares herself one way or the other. They do not want any escalation of care at this time but will continue with her current measures. I will continue to follow the patient.
[2017-07-02] MEDS ORDERED: VANCOMYCIN ENEMA PR SCH (18:30)
[2017-07-02] MEDS: VANCOMYCIN ENEMA PR SCH (20:41)
[2017-07-02] MEDS ORDERED: ARTIFICIAL TEARS OP OINT 3.5 GM TUBE OPB PRN (21:45)
--- NOTE | 2017-07-02 22:21 | Progress Note ---
Subjective Date of Service: Jul 02, 2017. Subjective Pt evaluation today including: physical exam, chart review, lab review Patient is intubated and sedated. Unable to obtain more information from patient. This includes review of systems. Problem List Medical Problems: (1) Abdominal pain Status: Acute (2) Acute pancreatitis Status: Acute (3) Alcohol abuse Status: Acute (4) Alcohol intoxication Status: Acute (5) Anemia Status: Acute (6) Anemia Status: Acute (7) Biliary obstruction Status: Acute (8) C. difficile colitis Status: Acute (9) C. difficile diarrhea Status: Acute (10) Chest pain Status: Acute (11) Contusion of multiple sites Status: Acute (12) Dehydration Status: Acute (13) Dehydration Status: Acute (14) Encounter for smoking cessation counseling Status: Acute (15) Epigastric abdominal pain Status: Acute (16) Fall Status: Acute (17) Fall due to slipping on ice or snow Status: Acute (18) Fracture of left distal radius Status: Acute (19) Hypocalcemia Status: Acute (20) Hypomagnesemia Status: Acute (21) Hypomagnesemia Status: Acute (22) Hypotension Status: Acute (23) Lactic acidosis Status: Acute (24) Liver failure Status: Acute (25) Pancreatitis Status: Acute Review of Systems All Other Systems: Reviewed and Negative Objective Vital Signs Date Time Temp Pulse Resp B/P (MAP) Pulse Ox O2 Delivery O2 Flow Rate FiO2 07/02/17 20:34 60 07/02/17 20:32 50 07/02/17 18:45 67 26 112/72 (85) 97 07/02/17 18:30 73 26 117/75 (89) 07/02/17 18:15 62 26 105/66 (79) 96 07/02/17 18:00 36.3 64 26 108/67 (81) 95 Mechanical Ventilator 50 07/02/17 17:53 50 07/02/17 17:45 61 26 107/67 (80) 96 07/02/17 17:30 64 26 108/67 (81) 96 07/02/17 17:15 65 26 115/72 (86) 98 07/02/17 17:00 65 26 109/68 (82) 98 07/02/17 16:45 63 26 109/68 (82) 98 07/02/17 16:30 65 26 116/73 (87) 99 07/02/17 16:15 66 26 115/72 (86) 98 18 16:00 Mechanical Ventilator 50 07/02/17 16:00 36.3 66 26 118/75 (89) 96 Mechanical Ventilator 50 07/02/17 16:00 50 18 15:45 62 26 107/66 (80) 97 07/02/17 15:30 62 26 107/66 (80) 97 07/02/17 15:15 60 26 106/65 (79) 97 07/02/17 15:00 62 26 106/66 (79) 97 07/02/17 14:48 50 07/02/17 14:45 62 26 105/64 (78) 97 07/02/17 14:30 63 26 109/68 (82) 98 07/02/17 14:15 67 26 105/65 (78) 97 07/02/17 14:00 67 26 105/64 (78) 97 07/02/17 13:45 73 26 116/71 (86) 95 07/02/17 13:30 64 26 96/75 (82) 97 07/02/17 13:15 65 26 109/66 (80) 97 07/02/17 13:00 64 26 108/66 (80) 96 07/02/17 12:45 63 26 108/66 (80) 96 07/02/17 12:30 63 26 107/65 (79) 96 07/02/17 12:15 64 26 108/66 (80) 96 07/02/17 12:00 50 07/02/17 12:00 Mechanical Ventilator 50 07/02/17 12:00 36.6 65 26 107/65 (79) 96 Mechanical Ventilator 50 07/02/17 11:30 67 26 113/67 (82) 96 07/02/17 11:17 50 07/02/17 11:15 67 26 116/70 (85) 98 07/02/17 11:00 68 26 113/68 (83) 98 07/02/17 10:45 78 26 125/76 (92) 94 07/02/17 10:30 65 26 118/71 (87) 96 07/02/17 10:15 64 26 114/70 (85) 96 07/02/17 10:00 65 26 114/69 (84) 96 07/02/17 09:45 63 26 118/71 (87) 98 07/02/17 09:34 64 26 105/71 (82) 98 07/02/17 09:30 64 26 123/74 (90) 98 07/02/17 09:15 67 26 107/64 (78) 97 07/02/17 09:00 70 26 104/61 (75) 97 07/02/17 08:45 69 26 111/66 (81) 99 07/02/17 08:30 70 26 108/64 (79) 99 07/02/17 08:15 75 26 119/70 (86) 98 07/02/17 08:14 75 26 125/73 (90) 98 Mechanical Ventilator 70 101/67 (78) 07/02/17 08:00 Mechanical Ventilator 70 07/02/17 08:00 70 07/02/17 08:00 35.7 72 26 123/72 (89) 99 07/02/17 08:00 Mechanical Ventilator 70 07/02/17 07:50 75 26 98 Mechanical Ventilator 70 07/02/17 07:34 70 07/02/17 07:00 66 26 113/66 (82) 98 07/02/17 06:01 68 26 116/68 (84) 98 Mechanical Ventilator 70 07/02/17 06:00 68 26 116/68 (84) 98 07/02/17 05:24 70 07/02/17 05:00 36.3 67 26 112/64 (80) 100 07/02/17 05:00 67 26 (82) 100 112/64 07/02/17 04:01 76 26 99/69 (88) 99 120/69 07/02/17 04:01 76 26 120/69 (86) 99 Mechanical Ventilator 80 07/02/17 04:00 75 26 (90) 100 122/70 07/02/17 04:00 80 07/02/17 04:00 Mechanical Ventilator 80 07/02/17 03:00 74 26 114/66 (82) 97 07/02/17 03:00 74 26 (83) 97 114/66 07/02/17 02:16 80 07/02/17 02:01 75 26 115/65 (82) 97 07/02/17 02:01 75 26 91/63 (82) 97 115/65 07/02/17 01:00 77 108/63 (78) 98 07/02/17 00:01 74 26 92/59 (77) 95 106/61 07/02/17 00:01 37.7 74 26 106/61 (76) 95 Mechanical Ventilator 70 07/01/17 23:59 Mechanical Ventilator 70 07/01/17 23:59 70 07/01/17 23:14 80 07/01/17 23:00 77 26 (74) 93 103/58 07/01/17 23:00 77 26 103/58 (73) 93 07/01/17 22:45 79 26 102/57 (72) 92 07/01/17 22:30 83 26 98/54 (69) 92 Physical Exam Comments: General Appearance: no apparent distress, intubated Neck: supple, no adenopathy, no JVD, trachea midline Respiratory/Chest: chest non-tender, no respiratory distress, no accessory muscle use, + decreased breath sounds, + crackles Cardiovascular: regular rate, rhythm, no edema, no gallop, no JVD, no murmur Abdomen: no organomegaly, + abnormal bowel sounds (hypoactive), + distended, Extremities: normal range of motion, non-tender, normal inspection, no pedal edema, no calf tenderness, pelvis stable Neurologic/Psychiatric: filling operator II-XII nml as tested, + pertinent finding (sedated on Fentanyl) Skin: normal color, warm/dry, no rash Laboratory Results Last 24 Hours Test 07/01/17 23:28 07/02/17 00:12 07/02/17 00:15 07/02/17 01:43 Bedside Glucose 294 mg/dl 276 mg/dl White Blood Count 19.28 K/uL Red Blood Count 2.63 M/uL Hemoglobin 8.9 g/dL Hematocrit 26.9 % Mean Corpuscular Volume 102.3 fL Mean Corpuscular Hemoglobin 33.8 pg Mean Corpuscular Hemoglobin Concent 33.1 g/dl RDW Standard Deviation 89.6 fL RDW Coefficient of Variation 24.9 % Platelet Count 167 K/uL Mean Platelet Volume 11.0 fL Nucleated RBC Absolute Count (auto) 0.39 K/uL Nucleated Red Blood Cells % 2.0 % Sodium Level 140 mmol/L Potassium Level 3.8 mmol/L Chloride Level 109 mmol/L Carbon Dioxide Level 19 mmol/L Anion Gap 11.8 mmol/L Blood Urea Nitrogen 16 mg/dl Creatinine 1.18 mg/dl Est Creatinine Clear Calc Drug Dose 63.2 ml/min Estimated GFR () 61.4 Estimated GFR (Non- 53.0 BUN/Creatinine Ratio 13.4 Random Glucose 311 mg/dl Lactic Acid Level 2.9 mmol/L Calcium Level 6.9 mg/dl Ionized Calcium 0.94 mmol/l Phosphorus Level 2.6 mg/dl Magnesium Level 1.6 mg/dl Total Bilirubin 9.8 mg/dl Aspartate Amino Transf (AST/SGOT) 58 U/L Alanine Aminotransferase (ALT/SGPT) 19 U/L Alkaline Phosphatase 227 U/L Total Protein 4.8 gm/dl Albumin 1.7 gm/dl Globulin 3.1 gm/dl Albumin/Globulin Ratio 0.6 Beta-Hydroxybutyric Acid 2.47 mg/dL Blood Gas Sample Site Art Line Bedside Blood Gas pH (LAB) 7.23 Bedside Blood Gas pCO2 (LAB) 40 mmHg Bedside Blood Gas pO2 (LAB) 67 mmHg Bedside Blood Gas HCO3 (LAB) 17 meq/L Bedside Blood Gas Total CO2 18 mEq/l Bedside Blood Gas Base Excess (LAB) -10.0 meq/L Bedside Blood Gas O2 Saturation 90.0 % Leonidas Test NA Oxygen Delivery Device Ventilator Bedside Oxygen Rate (breaths/min) 26 Bedside FiO2 70 % Blood Gas PEEP 18 Test 07/02/17 02:30 07/02/17 03:41 07/02/17 03:53 07/02/17 03:56 Bedside Glucose 271 mg/dl 262 mg/dl White Blood Count 16.96 K/uL Red Blood Count 2.59 M/uL Hemoglobin 8.7 g/dL Hematocrit 26.5 % Mean Corpuscular Volume 102.3 fL Mean Corpuscular Hemoglobin 33.6 pg Mean Corpuscular Hemoglobin Concent 32.8 g/dl Platelet Count 150 K/uL Mean Platelet Volume 10.8 fL Neutrophils (%) (Auto) 83.9 % Lymphocytes (%) (Auto) 5.8 % Monocytes (%) (Auto) 3.7 % Eosinophils (%) (Auto) 0.0 % Basophils (%) (Auto) 0.5 % Neutrophils # (Auto) 14.24 K/uL Lymphocytes # (Auto) 0.98 K/uL Monocytes # (Auto) 0.62 K/uL Eosinophils # (Auto) 0.00 K/uL Basophils # (Auto) 0.09 K/uL RDW Standard Deviation 90.1 fL RDW Coefficient of Variation 24.9 % Immature Granulocyte % (Auto) 6.1 % Immature Granulocyte # (Auto) 1.03 K/uL Nucleated RBC Absolute Count (auto) 0.31 K/uL Nucleated Red Blood Cells % 1.8 % Polychromasia 1+ Anisocytosis PRESENT Prothrombin Time 20.9 SECONDS Prothromb Time International Ratio 2.0 Activated Partial Thromboplast Time 42.9 SECONDS Partial Thromboplastin Ratio 1.7 Sodium Level 141 mmol/L Potassium Level 3.4 mmol/L Chloride Level 110 mmol/L Carbon Dioxide Level 19 mmol/L Anion Gap 12.0 mmol/L Blood Urea Nitrogen 16 mg/dl Creatinine 1.08 mg/dl Est Creatinine Clear Calc Drug Dose 69.0 ml/min Estimated GFR () 68.4 Estimated GFR (Non- 59.0 BUN/Creatinine Ratio 14.8 Random Glucose 267 mg/dl Estimated Average Glucose 91 mg/dl Hemoglobin A1c 4.8 % Lactic Acid Level 2.8 mmol/L Calcium Level 6.4 mg/dl Ionized Calcium 0.93 mmol/l Phosphorus Level 2.2 mg/dl Magnesium Level 1.5 mg/dl Total Bilirubin 9.6 mg/dl Direct Bilirubin 8.1 mg/dl Aspartate Amino Transf (AST/SGOT) 54 U/L Alanine Aminotransferase (ALT/SGPT) 21 U/L Alkaline Phosphatase 220 U/L Total Protein 4.9 gm/dl Albumin 2.0 gm/dl Globulin 2.9 gm/dl Albumin/Globulin Ratio 0.7 Bedside Hemoglobin 9.5 g/dl Bedside Hematocrit 28 % Bedside FiO2 80 % Bedside Sodium 143 mEq/L Bedside Potassium 3.4 mEq/L Test 07/02/17 04:49 07/02/17 05:46 07/02/17 06:34 07/02/17 07:53 Bedside Glucose (other) 243 mg/dl 243 mg/dl 258 mg/dl 242 mg/dl Test 07/02/17 08:02 07/02/17 08:54 07/02/17 10:06 07/02/17 11:30 White Blood Count 15.30 K/uL Red Blood Count 2.53 M/uL Hemoglobin 8.5 g/dL Hematocrit 25.9 % Mean Corpuscular Volume 102.4 fL Mean Corpuscular Hemoglobin 33.6 pg Mean Corpuscular Hemoglobin Concent 32.8 g/dl RDW Standard Deviation 90.3 fL RDW Coefficient of Variation 24.8 % Platelet Count 136 K/uL Mean Platelet Volume 11.0 fL Nucleated RBC Absolute Count (auto) 0.28 K/uL Nucleated Red Blood Cells % 1.8 % Sodium Level 140 mmol/L Potassium Level 3.7 mmol/L Chloride Level 108 mmol/L Carbon Dioxide Level 21 mmol/L Anion Gap 11.0 mmol/L Blood Urea Nitrogen 16 mg/dl Creatinine 1.07 mg/dl Est Creatinine Clear Calc Drug Dose 74.1 ml/min Estimated GFR () 69.1 Estimated GFR (Non- 59.6 BUN/Creatinine Ratio 15.0 Random Glucose 251 mg/dl Lactic Acid Level 3.0 mmol/L Calcium Level 6.7 mg/dl Ionized Calcium 0.90 mmol/l Phosphorus Level 1.8 mg/dl Magnesium Level 1.8 mg/dl Total Bilirubin 9.3 mg/dl Aspartate Amino Transf (AST/SGOT) 54 U/L Alanine Aminotransferase (ALT/SGPT) 18 U/L Alkaline Phosphatase 208 U/L Total Protein 5.0 gm/dl Albumin 2.2 gm/dl Globulin 2.8 gm/dl Albumin/Globulin Ratio 0.8 Bedside Glucose (other) 219 mg/dl 202 mg/dl Blood Gas Specimen Type ARTERIAL Blood Gas Sample Site L Femoral Blood Gas Patient Temperature 36.3 Bedside Blood Gas pH (LAB) 7.26 Bedside Blood Gas pCO2 (LAB) 41 mmHg Bedside Blood Gas pO2 (LAB) 75 mmHg Bedside Blood Gas HCO3 (LAB) 19 meq/L Bedside Blood Gas Total CO2 20 mEq/l Bedside Blood Gas Base Excess (LAB) -9.0 meq/L Bedside Blood Gas O2 Saturation 93.0 % Oxygen Saturation (Pulse Oximetry) 96 % Leonidas Test NOT PERFORMED Oxygen Delivery Device Ventilator Bedside FiO2 50 % Blood Gas PEEP 18 Blood Gas Pressure Support 16 Test 07/02/17 11:35 07/02/17 13:37 07/02/17 14:54 07/02/17 15:27 Bedside Glucose (other) 179 mg/dl 150 mg/dl 135 mg/dl Sodium Level 140 mmol/L Potassium Level 3.7 mmol/L Chloride Level 108 mmol/L Carbon Dioxide Level 22 mmol/L Anion Gap 10.0 mmol/L Blood Urea Nitrogen 17 mg/dl Creatinine 0.98 mg/dl Est Creatinine Clear Calc Drug Dose 80.9 ml/min Estimated GFR () 76.9 Estimated GFR (Non- 66.3 BUN/Creatinine Ratio 17.0 Random Glucose 143 mg/dl Lactic Acid Level 2.9 mmol/L Calcium Level 6.5 mg/dl Test 07/02/17 15:56 07/02/17 16:57 07/02/17 18:32 07/02/17 19:25 Bedside Glucose (other) 126 mg/dl 109 mg/dl 95 mg/dl 90 mg/dl Test 07/02/17 20:17 07/02/17 20:38 07/02/17 21:45 07/02/17 22:00 Blood Gas Sample Site Art Line Bedside Blood Gas pH (LAB) 7.31 Bedside Blood Gas pCO2 (LAB) 44 mmHg Bedside Blood Gas pO2 (LAB) 62 mmHg Bedside Blood Gas HCO3 (LAB) 22 meq/L Bedside Blood Gas Total CO2 23 mEq/l Bedside Blood Gas Base Excess (LAB) -4.0 meq/L Bedside Blood Gas O2 Saturation 90.0 % Leonidas Test Pass Oxygen Delivery Device Ventilator Bedside Oxygen Rate (breaths/min) 26 Bedside FiO2 50 % Blood Gas PEEP 16 Bedside Glucose (other) 108 mg/dl 119 mg/dl Assessment and Plan 52 yo female with history of alcohol abuse, cirrhosis, c diff colitis who presented with weakness, hypotension, bloody diarrhea, KEVIN, acidosis - Septic shock: suspected source is pneumonia, likely aspiration vs colitis Source of sepsis: unclear Surgery is recommending possible total colectomy, however given her critical state and unclear that she may have more of a respiratory issue, pressors, bicarb drip. This procedure is being held for now. IV fluids, pressor support with Levophed, Vasopressin, poor UO follow up blood cultures drawn today continue Vanco, Cefepime, flagyl Holding levaquin as we try to decrease unnecessary antibiotics abdomen still distended but no acute findings on CT abdomen - Acute hypoxic respiratory failure, likely from ARDS intubated, ventilator support management per ICU FiO2 down to 80%, saturating 96% follow ABG On sedation, HERIBERTO goal -4 - Lactic acidosis: likely from shock, monitor LA, fluid support - KEVIN: Cr is improved at 1.02 but urine output is not adequate minimal out today despite 4000cc input via IV continue to monitor Cr q4, follow UO in gil - Anemia: HB dropped to 7.8 will monitor, may be dilutional. h/o slow GI bleeding for weeks per family transfused 2 units PRBC initially, responded well, no further signs of bleeding - Hypokalemia: resolved, continue to monitor - Hypophosphatemia: 2.2 again, replace - Hypomagnesemia: 1.5 today, replace - Alcoholism, last drink was two days prior to admission place on withdrawal protocol, had some tremors on admission, resolved for time being thiamine and folate daily no signs of DT's - Hyperbilirubinemia: hepatic steatosis on imaging, likely developing cirrhosis with alcoholism history supportive care, continue to monitor, bili down to 8 today, INR is 1.7 mother will be decision maker, change to Level 5 DNR if heart would stop discussed held with RN and network solutions architect present Continued [facility] stay due to: multiple IV medications needed Discharge planning: uncertain
[2017-07-03] VITALS (81 sets, daily range): BP systolic 86–132; BP diastolic 52–83; PULSE 61–90; TEMP 36.3–36.8; O2SAT 90–100
[2017-07-03] MEDS: ALBUTEROL HFA 8 GM INHALER INH SCH ×7 (00:02→22:38)
[2017-07-03] MEDS: IPRATROPIUM BROMIDE HFA INHALER INH SCH ×7 (00:02→22:38)
[2017-07-03] MEDS: CEFEPIME IV 2,000 MG in SYRINGE 7.5 ML IV SCH ×3 (00:07→17:10)
[2017-07-03] MEDS: FENTANYL 1250MCG/250ML NSS 250 ML IV PRN ×3 (00:08→22:40)
[2017-07-03] MEDS: MIDAZOLAM 125MG/250ML D5W 250 ML IV SCH ×3 (00:09→22:30)
[2017-07-03] MEDS: VANCOMYCIN ENEMA PR SCH ×4 (03:11→19:27)
[2017-07-03] MEDS: METRONIDAZOLE / NSS 500 MG in PREMIXED NSS 100 ML IV SCH ×3 (03:11→18:11)
[2017-07-03] MEDS: ASCORBIC ACID INJ 1,500 MG in NSS 100 ML IV SCH ×4 (03:14→22:01)
[2017-07-03] MEDS: VANCOMYCIN HCL 250 MG/5 ML SOLN PO SCH ×4 (03:14→22:01)
[2017-07-03] MEDS: RASPBERRY SYRUP 5 ML UDP PO SCH ×4 (04:00→21:59)
[2017-07-03 04:03] LABS: BASO % 0.3 %; BASO ABS # 0.04 K/uL (0-0.2); HEMATOCRIT 25.2 % (37-47); HEMOGLOBIN 8.1 g/dL (12.0-16.0); IG# 0.28 K/uL (0.00-0.02); LYMPH % 4.6 %; LYMPH ABS # 0.56 K/uL (1.2-3.4); MEAN CORPUSCULAR HEMOGLOBIN 32.8 pg (25-34); MEAN CORPUSCULAR HGB CONC 32.1 g/dl (32-36); MEAN PLATELET VOLUME 11.9 fL (7.4-10.4); MONO % 5.8 %; MONO ABS # 0.71 K/uL (0.11-0.59); PLATELET COUNT 106 K/uL (130-400); RED CELL DISTRIBUTION WIDTH CV 25.2 % (11.5-14.5); RED CELL DISTRIBUTION WIDTH SD 92.8 fL (36.4-46.3); WHITE BLOOD COUNT 12.29 K/uL (4.8-10.8)
[2017-07-03 04:11] LABS: INR 1.6 (0.9-1.1); PTT PATIENT 39.9 SECONDS (21.0-31.0)
[2017-07-03] MEDS: VASOPRESSIN INJ 50 UNITS in SODIUM CHLORIDE 0.9% 500ML 500 ML IV PRN ×2 (04:24→22:02)
[2017-07-03] MEDS ORDERED: INSULIN ASPART 100 UNITS/ML 3 ML PEN SC ONE (04:34)
[2017-07-03 04:38] LABS: ALBUMIN 1.9 gm/dl (3.4-5.0); CALCIUM 6.3 mg/dl (8.5-10.1); CREATININE 0.92 mg/dl (0.60-1.20); PHOSPHORUS 1.7 mg/dl (2.5-4.9); POTASSIUM 4.3 mmol/L (3.5-5.1); TOTAL PROTEIN 4.8 gm/dl (6.4-8.2)
[2017-07-03] MEDS: HEPARIN SOD 5000 UNIT/0.5 ML CARP SQ SCH ×3 (04:56→22:02)
[2017-07-03] MEDS ORDERED: VANCOMYCIN TROUGH ONE (05:30)
[2017-07-03] MEDS ORDERED: NovoLIN R BOLUS FROM BAG IV ONE (06:15)
[2017-07-03] MEDS: INSULIN REGULAR 250 UNITS in SODIUM CHLORIDE 0.9% 250ML 250 ML IV SCH (06:18)
[2017-07-03] MEDS: MAGNESIUM OXIDE 400 MG TAB PO SCH ×3 (06:19→14:29)
[2017-07-03] MEDS: POT PHOSPHATE MONOBASIC W/ SOD TAB PO SCH ×3 (06:19→14:29)
[2017-07-03] MEDS ORDERED: INSULIN ASPART 100 UNITS/ML 3 ML PEN SC SCH (06:45)
--- NOTE | 2017-07-03 06:58 | DIAGNOSTIC IMAGING REPORT ---
CHEST ONE VIEW PORTABLE HISTORY: 52 years-old Female ARDS acute respiratory distress COMPARISON: Chest radiograph 07/02/2017 TECHNIQUE: Portable AP view of the chest FINDINGS: Cardiac silhouette is again mildly enlarged. Endotracheal tube overlies the midline terminating 3.4 cm superior to the [place]. Enteric tube courses below the diaphragm into the region of the gastric lumen, distal tip outside the [id number]. Surgical clips of the right upper abdomen suggest prior cholecystectomy. Diffuse multifocal multilobar distribution of alveolar opacities redemonstrated, with slightly improved aeration of the upper lung zones. No large pleural effusion or pneumothorax identified. Bones of the chest appear grossly intact. IMPRESSION: 1. Mildly improved aeration of the upper lung zones with persistent multifocal bilateral alveolar opacities redemonstrated suggesting cardiogenic or noncardiogenic pulmonary edema or multifocal pneumonia. 2. Unchanged positioning of enteric and endotracheal tubes. The above report was generated using voice recognition software. It may contain grammatical, syntax or spelling errors. Electronically signed by: Nicolas Song M.D. 07/03/2017 6:57 AM Dictated Date/Time: 07/03/2017 6:53 AM
[2017-07-03] MEDS: INSULIN ASPART 100 UNITS/ML 3 ML PEN SC SCH ×4 (07:54→21:00)
[2017-07-03] MEDS: METHYLPREDNISOLONE IV 40 MG in SYRINGE 0 ML IV SCH ×2 (08:01→16:25)
--- NOTE | 2017-07-03 08:40 | Critical Care Progress Note ---
Critical Care Progress Note Date of Service Jul 03, 2017. ICU Day ICU Day Number: [address] Hernandez Subjective Unable to obtain due to pt mental status or condition. Lengthy discussion with nursing. ON: ABG O2 decreased to 62 and FiO2 was increased to 60% from 50% and insp pressure increased to 18. Versed was increased to 12 mg/hr, BIS 40-60 mostly but increased to 70s. Replaced Mg and Po4 PO q4h x 3 for (Mag 1.3 and Phos 1.7). Was tried of SSI Q2H ON for dropping BSG but Insulin gtt restarted at 06-- for BSG 179. Levophed was reduced to 0.04 mcg/kg/min (50% reduction). 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 Now with liver failure in the setting of alcoholic cirrhosis, respiratory failure/ARDS on mechanical ventilation. 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 No intervention at this time. SMA/LISBET patent. Pressor support: vasopressin 0.04 units/min (stop once BP improves) and Levophed 0.04 mcg/kg/min PULM: In acute respiratory failure and on ARDSnet protocol. P and F ratio 141 Vent: On PC - RR 24; 50% O2; PEEP 16 (goal - high peep; low O2). Peak airway pressure 32 Pulm Toilet: alubterol 4 puffs Q4H; Atrovent 4 puffs Q4H Methylpred 40mg Q8H (2mg/kg x 14 days - on meduri protocol 28 days) RENAL/METABOLIC: renal function at baseline Cr ~ 1 Improving urine output Volume overloaded by +27.5L Dced sodium bicarbonate given improving metabolic acidosis and hypervolemia ID: Concern for uremia and bacteremia given ischemic and C. diff colitis and PNA. Blood culture from 07/01 no growth PNA - antibiotic regimen narrowed to Cefepime day 3 of 10 Received IV vanc x 3 days ENDO: Blood sugars downtrended to 90 ON at which point trialed SSI Q2H but failed as BSG increased to 179 and restarted on Insulin gtt at 0600. Continue Insulin gtt while edematous and on pressors HEME: Worsening anemia H/H - 8.1/25.2. Plt ct 194 No evidence of bleeding Monitor CBC Electrolytes: Low Ca 6.3, Mag 1.3 and Phos 1.7 Received potassium/phosphorus/sodium 1 tab Q4H x 3 Received Mag Oxide 400mg Q4H x 3 Nutrition: NPO given sedated Vit C and Thiamine cocktail Folic Acid GI: NPO due to NM blockade and sedation Persistent liver failure; total bilirubin downtrended today to 8.2 from 9.3 and direct bili from 8.1 to 7.8; AST stable at 54 and Alk phos 209 MELD score 20 (19.6% mortality risk); Child-Burns score of 10 (class C) Continue recurrent C.diff Colitis treatment: Vanc PO day 4; Vanc NE day 2; Flagyl IV day 3 Consulted surgery: high mortality risk for total colectomy at this time GI prophylaxis: Protonix 40mg IV BID IV access: L femoral tri-lumen central venous cath DVT Prophylaxis: Heparin 5000 units BID; SCDs PROGNOSIS: poor given high mortality in the setting of severe sepsis and multi- organ failure and poor baseline healthy Palliative care consulted Family Meeting: maintain current care plan, do not escalate care, would like to avoid surgery at this point; will reassess if condition worsens CCT: 45 minutes independent of procedures Thank you for including us in the care of this patient. Please refer to Dr. Hernandez's addendum for further recommendations. Resident Physician Supervision Note: Dr. Horton was resident physician during care of patient. I separately evaluated patient and did history and exam. I discussed the case with the resident and generally agree with the findings and plan. Stopping neuromuscular blockade at noon today, decreased total norepinephrine infusion, minimal improvement in regards, P to F ratio mildly worse ; however compliance slightly improving. Current meld score 20, discontinuing vancomycin today, continue cefepime for a total of 10 days given concern for ischemic colitis and possible bacterial translocation. Continue with vancomycin p.o. as well as rectal enemas as well as IV Flagyl. Plan to start trickle tube feeds if vasoactive's continue to decrease. I have personally spent 45 minutes of critical care time in the direct management of this patient. This is a life/limb threatening event. This includes time spent evaluating patient, direct bedside care, chart review, placing orders, interpretation of diagnostic studies, discussion with consultants, patient, and/or family members regarding treatment decisions, as well as other required patient management activities. This time is exclusive of all separately billable procedures, and teaching time and separate from and in addition to any other critical care service time. Documented By: Jericho Hernandez DO Consults & Procedures Consultants: GI: Dr Joseph Vascular: Dr Baron General Surgery: Dr. Choe Procedures: 07/01/17: left femoral TLC 07/01/17: left femoral a-line 07/01/17: intubation Data Medications: Current Inpatient Medications Medications (Trade) Dose Ordered Sig/Razia Route Start Time Stop Time Status Last Admin Dose Admin Pantoprazole Sodium 40 mg/ Syringe 10 ml @ 5 mls/min BID IV 06/27/17 09:00 07/27/17 08:59 07/02/17 20:43 5 MLS/MIN Thiamine HCl 100 mg/Syringe 10 ml @ 2 mls/min Q24H IV 06/28/17 11:00 07/28/17 10:59 07/02/17 10:39 2 MLS/MIN Folic Acid 1 mg/ Syringe 10 ml @ 5 mls/min Q24H IV 06/28/17 11:00 07/28/17 10:59 07/02/17 10:39 5 MLS/MIN Lorazepam (Ativan Inj) 1 mg ONE PRN IV 06/27/17 09:15 Enteral Nutritional Formula (Boost Plus Vanilla) 1 can BID PO 06/27/17 21:00 07/27/17 20:59 06/30/17 19:35 1 CAN Ondansetron HCl (Zofran Inj) 4 mg Q6H PRN IV 06/27/17 17:46 07/27/17 17:45 Hydromorphone HCl (Dilaudid Inj) 1 mg Q3HWA PRN IV 06/29/17 09:15 07/13/17 09:14 06/30/17 20:36 1 MG Ioversol (Optiray 320) 125 ml UD PRN IV 06/29/17 14:00 07/03/17 13:59 Vancomycin HCl (Vancomycin Oral Soln) 250 mg Q6H PO 06/30/17 10:00 07/10/17 09:59 07/03/17 03:14 250 MG Raspberry (Raspberry Syrup 5ml Cup) 5 ml Q6H PO 06/30/17 10:00 07/14/17 09:59 07/01/17 21:21 5 ML Albuterol/ Ipratropium (Duoneb) 3 ml Q4 PRN INH 07/01/17 05:30 07/31/17 05:29 Future Hold 07/01/17 10:06 3 ML Vancomycin HCl 1500 mg/Sodium Chloride 530 ml @ 200 mls/hr Q16H IV 07/01/17 22:00 07/08/17 05:59 Future Hold 07/02/17 13:59 200 MLS/HR Miscellaneous Information (Consult) 1 ea UD PRN N/A 07/01/17 05:45 07/31/17 05:44 Methylprednisolone Sodium Succinate 40 mg/Syringe 0.64 ml @ 1.5 mls/min Q8H IV 07/01/17 16:00 07/31/17 15:59 07/03/17 08:01 1.5 MLS/MIN Metronidazole 500 mg/Prmx 100 ml @ 100 mls/hr Q8H IV 07/01/17 10:00 07/07/17 09:59 07/03/17 03:11 100 MLS/HR Cefepime HCl (Consult) 1 ea UD PRN N/A 07/01/17 07:45 07/31/17 07:44 Norepinephrine Bitartrate 8 mg/ Dextrose 508 ml @ 0 mls/hr Q0M PRN IV 07/01/17 11:15 07/31/17 11:14 07/02/17 23:05 21.9 MLS/HR Vasopressin 50 units/Sodium Chloride 502.5 ml @ 0 mls/hr Q0M PRN IV 07/01/17 11:53 07/31/17 11:52 07/03/17 04:24 24 MLS/HR Cisatracurium Besylate 40 mg/ Sodium Chloride 100 ml @ 0 mls/hr Q0M PRN IV 07/01/17 12:15 07/03/17 12:14 07/02/17 19:29 6.3 MLS/HR Midazolam HCl 250 ml @ 0 mls/hr Q0M IV 07/01/17 12:33 07/31/17 12:32 07/03/17 00:09 20 MLS/HR Fentanyl Citrate 250 ml @ 0 mls/hr Q0M PRN IV 07/01/17 21:15 07/15/17 21:14 07/03/17 00:08 20 MLS/HR Insulin Human Regular 250 units/ Sodium Chloride 252.5 ml @ 0 mls/hr Q24H IV 07/02/17 00:00 08/01/17 00:00 07/03/17 06:18 3.7 MLS/HR Insulin Aspart (novoLOG ASPART) SLIDING SCALE [facility] 07/02/17 08:00 08/01/17 07:59 Future hold Glucose (Glucose 40% Gel) 15-30 GRAMS 15 GRAMS... UD PRN PO 07/01/17 23:45 07/31/17 23:44 Glucose (Glucose Chew Tab) 4-8 Tablets 4 Tabl... UD PRN PO 07/01/17 23:45 07/31/17 23:44 Dextrose (Dextrose 50% 50ML Syringe) 25-50ML OF 50% DW IV FOR... UD PRN IV 07/01/17 23:45 07/31/17 23:44 Glucagon (Glucagon Inj) 1 mg UD PRN SQ 07/01/17 23:45 07/31/17 23:44 Sodium Bicarbonate 150 meq/Potassium Chloride 20 meq/ Dextrose 1,160 ml @ 100 mls/hr [id number] IV 07/02/17 05:30 07/31/17 05:29 07/02/17 17:50 100 MLS/HR Albuterol (Ventolin Hfa Inhaler) 4 puffs Q4R INH 07/02/17 08:00 08/01/17 07:59 07/03/17 07:27 4 PUFFS Ipratropium Beatty (Atrovent Hfa Inhaler) 4 puffs Q4R INH 07/02/17 08:00 08/01/17 07:59 07/03/17 07:27 4 PUFFS Ascorbic Acid 1500 mg/Sodium Chloride 103 ml @ 206 mls/hr Q6H IV 07/02/17 10:00 07/06/17 04:29 07/03/17 03:14 206 MLS/HR Heparin Sodium (Porcine) (Heparin Sq 5000 Unit/0.5ml) 5,000 unit Q8H SQ 07/02/17 14:00 08/01/17 13:59 07/03/17 04:56 5,000 UNIT Cefepime HCl 2000 mg/Syringe 20 ml @ 5 mls/min Q8H IV 07/02/17 17:00 07/08/17 23:59 07/03/17 00:07 5 MLS/MIN Vancomycin HCl (Vancomycin Enema) 500 mg Q6H NE 07/02/17 20:00 07/12/17 19:59 Future hold 07/03/17 08:02 500 MG Artificial Tears (Lacri-Lube Oph Oint) 1 appln Q2H PRN OPB 07/02/17 21:45 08/01/17 21:44 Insulin Aspart (novoLOG ASPART) SLIDING SCALE G... ACHS SC 07/02/17 23:45 08/01/17 23:44 Future Hold 07/03/17 00:11 1 UNITS Potassium/ Phosphorus/Sodium (Phospha 250 Neutral 155-852-130 Mg) 1 tab Q4H PO 07/03/17 06:00 07/03/17 14:01 07/03/17 06:19 1 TAB Magnesium Oxide (Mag-Ox Tab) 400 mg Q4H PO 07/03/17 06:00 07/03/17 14:01 07/03/17 06:19 400 MG I & O: 24 hours: Is: 7389cc Os: 785cc. Net + 6604. UOP 585cc - rate 0.26 cc/kg/hr Gastric NG output 200cc bilious and BM x 1 Cumulative + 27.5L Vital Signs: Date Time Temp Pulse Resp B/P (MAP) Pulse Ox O2 Delivery O2 Flow Rate FiO2 07/03/17 07:35 50 07/03/17 06:26 60 07/03/17 05:45 72 26 115/74 (88) 98 07/03/17 05:30 63 26 116/72 (87) 100 07/03/17 05:15 68 26 118/73 (88) 100 07/03/17 05:12 60 07/03/17 05:12 Mechanical Ventilator 60 07/03/17 05:00 73 26 (94) 100 119/75 07/03/17 05:00 73 26 119/75 (90) 100 07/03/17 04:30 73 26 122/78 (93) 100 07/03/17 04:15 79 26 120/75 (90) 97 07/03/17 04:00 80 27 (89) 97 115/71 07/03/17 04:00 36.3 80 27 115/71 (86) 97 Mechanical Ventilator 60 07/03/17 03:30 80 26 131/83 (99) 100 07/03/17 03:16 60 07/03/17 03:15 82 27 111/69 (83) 91 07/03/17 03:00 62 26 (92) 99 116/73 07/03/17 03:00 62 26 116/73 (87) 99 07/03/17 02:26 60 07/03/17 02:01 63 26 119/74 (89) 100 Mechanical Ventilator 60 07/03/17 02:01 63 26 105/78 (94) 100 119/74 07/03/17 02:00 63 26 (94) 99 119/74 07/03/17 01:45 63 26 118/75 (89) 99 07/03/17 01:30 61 26 116/73 (87) 99 07/03/17 01:15 62 26 119/74 (89) 99 07/03/17 01:00 64 26 (92) 99 116/73 07/03/17 01:00 64 26 116/73 (87) 99 07/03/17 00:45 63 26 117/73 (88) 99 07/03/17 00:30 69 26 119/74 (89) 98 07/03/17 00:15 66 26 132/81 (98) 98 18 00:02 60 07/03/17 00:01 81 27 106/81 (97) 96 124/78 07/03/17 00:00 83 28 (97) 95 123/78 07/03/17 00:00 36.4 83 28 123/78 (93) 95 Mechanical Ventilator 60 07/02/17 23:59 60 07/02/17 23:59 Mechanical Ventilator 60 07/02/17 23:45 68 26 120/76 (91) 98 07/02/17 23:30 68 26 120/76 (91) 98 07/02/17 23:15 68 26 121/76 (91) 98 07/02/17 23:00 68 26 (97) 98 122/77 07/02/17 23:00 68 26 122/77 (92) 98 07/02/17 22:15 67 26 123/77 (92) 98 07/02/17 22:01 70 26 109/82 (99) 99 125/78 07/02/17 22:01 70 26 125/78 (94) 99 07/02/17 22:00 69 26 (100) 99 126/78 07/02/17 22:00 69 26 126/78 (94) 99 07/02/17 21:45 73 26 127/79 (95) 98 07/02/17 21:30 75 26 125/76 (92) 97 07/02/17 21:15 66 26 132/82 (99) 97 18 21:00 58 26 (101) 100 129/81 07/02/17 21:00 58 26 129/81 (97) 100 07/02/17 20:45 60 26 123/77 (92) 100 07/02/17 20:34 60 18 20:32 50 18 20:30 62 26 119/75 (90) 100 07/02/17 20:15 65 26 112/71 (85) 97 07/02/17 20:01 68 26 112/71 (85) 97 07/02/17 20:01 68 26 99/75 (87) 97 112/71 318 20:00 69 26 (88) 96 113/72 18 20:00 69 26 113/72 (86) 96 18 20:00 100 Mechanical Ventilator 60 18 20:00 60 18 19:45 65 26 107/68 (81) 96 18 19:30 69 26 112/71 (85) 95 18 19:15 64 26 108/69 (82) 96 18 19:00 64 26 110/70 (83) 97 18 19:00 64 26 (87) 97 110/70 18 18:45 67 26 112/72 (85) 97 18 18:30 73 26 117/75 (89) 18 18:15 62 26 105/66 (79) 96 18 18:00 36.3 64 26 108/67 (81) 95 Mechanical Ventilator 50 07/02/17 17:53 50 18 17:45 61 26 107/67 (80) 96 18 17:30 64 26 108/67 (81) 96 18 17:15 65 26 115/72 (86) 98 18 17:00 65 26 109/68 (82) 98 18 16:45 63 26 109/68 (82) 98 18 16:30 65 26 116/73 (87) 99 18 16:15 66 26 115/72 (86) 98 18 16:00 Mechanical Ventilator 50 18 16:00 36.3 66 26 118/75 (89) 96 Mechanical Ventilator 50 18 16:00 50 18 15:45 62 26 107/66 (80) 97 18 15:30 62 26 107/66 (80) 97 18 15:15 60 26 106/65 (79) 97 18 15:00 62 26 106/66 (79) 97 18 14:48 50 07/02/17 14:45 62 26 105/64 (78) 97 07/02/17 14:30 63 26 109/68 (82) 98 3/12/18 14:15 67 26 105/65 (78) 97 07/02/17 14:00 67 26 105/64 (78) 97 07/02/17 13:45 73 26 116/71 (86) 95 07/02/17 13:30 64 26 96/75 (82) 97 07/02/17 13:15 65 26 109/66 (80) 97 07/02/17 13:00 64 26 108/66 (80) 96 07/02/17 12:45 63 26 108/66 (80) 96 07/02/17 12:30 63 26 107/65 (79) 96 07/02/17 12:15 64 26 108/66 (80) 96 07/02/17 12:00 50 07/02/17 12:00 Mechanical Ventilator 50 07/02/17 12:00 36.6 65 26 107/65 (79) 96 Mechanical Ventilator 50 07/02/17 11:30 67 26 113/67 (82) 96 07/02/17 11:17 50 07/02/17 11:15 67 26 116/70 (85) 98 07/02/17 11:00 68 26 113/68 (83) 98 07/02/17 10:45 78 26 125/76 (92) 94 07/02/17 10:30 65 26 118/71 (87) 96 07/02/17 10:15 64 26 114/70 (85) 96 07/02/17 10:00 65 26 114/69 (84) 96 07/02/17 09:45 63 26 118/71 (87) 98 07/02/17 09:34 64 26 105/71 (82) 98 07/02/17 09:30 64 26 123/74 (90) 98 07/02/17 09:15 67 26 107/64 (78) 97 07/02/17 09:00 70 26 104/61 (75) 97 07/02/17 08:45 69 26 111/66 (81) 99 07/02/17 08:30 70 26 108/64 (79) 99 Laboratory Results: Last 24 Hours Test 07/02/17 08:54 07/02/17 10:06 07/02/17 11:30 07/02/17 11:35 Bedside Glucose (other) 219 mg/dl 202 mg/dl 179 mg/dl Blood Gas Specimen Type ARTERIAL Blood Gas Sample Site L Femoral Blood Gas Patient Temperature 36.3 Bedside Blood Gas pH (LAB) 7.26 Bedside Blood Gas pCO2 (LAB) 41 mmHg Bedside Blood Gas pO2 (LAB) 75 mmHg Bedside Blood Gas HCO3 (LAB) 19 meq/L Bedside Blood Gas Total CO2 20 mEq/l Bedside Blood Gas Base Excess (LAB) -9.0 meq/L Bedside Blood Gas O2 Saturation 93.0 % Oxygen Saturation (Pulse Oximetry) 96 % Leondias Test NOT PERFORMED Oxygen Delivery Device Ventilator Bedside FiO2 50 % Blood Gas PEEP 18 Blood Gas Pressure Support 16 Test 07/02/17 13:37 07/02/17 14:54 07/02/17 15:27 07/02/17 15:56 Bedside Glucose (other) 150 mg/dl 135 mg/dl 126 mg/dl Sodium Level 140 mmol/L Potassium Level 3.7 mmol/L Chloride Level 108 mmol/L Carbon Dioxide Level 22 mmol/L Anion Gap 10.0 mmol/L Blood Urea Nitrogen 17 mg/dl Creatinine 0.98 mg/dl Est Creatinine Clear Calc Drug Dose 80.9 ml/min Estimated GFR () 76.9 Estimated GFR (Non- 66.3 BUN/Creatinine Ratio 17.0 Random Glucose 143 mg/dl Lactic Acid Level 2.9 mmol/L Calcium Level 6.5 mg/dl Test 07/02/17 16:57 07/02/17 18:32 07/02/17 19:25 07/02/17 20:17 Bedside Glucose (other) 109 mg/dl 95 mg/dl 90 mg/dl Blood Gas Sample Site Art Line Bedside Blood Gas pH (LAB) 7.31 Bedside Blood Gas pCO2 (LAB) 44 mmHg Bedside Blood Gas pO2 (LAB) 62 mmHg Bedside Blood Gas HCO3 (LAB) 22 meq/L Bedside Blood Gas Total CO2 23 mEq/l Bedside Blood Gas Base Excess (LAB) -4.0 meq/L Bedside Blood Gas O2 Saturation 90.0 % Leonidas Test Pass Oxygen Delivery Device Ventilator Bedside Oxygen Rate (breaths/min) 26 Bedside FiO2 50 % Blood Gas PEEP 16 Test 07/02/17 20:38 07/02/17 21:45 07/02/17 22:39 07/02/17 22:45 Bedside Glucose (other) 108 mg/dl 119 mg/dl 146 mg/dl Lactic Acid Level 2.1 mmol/L Test 07/02/17 23:29 3/13/18 03:52 07/03/17 04:04 07/03/17 05:51 Blood Gas Sample Site Art Line Art Line Bedside Blood Gas pH (LAB) 7.32 7.33 Bedside Blood Gas pCO2 (LAB) 40 mmHg 43 mmHg Bedside Blood Gas pO2 (LAB) 76 mmHg 85 mmHg Bedside Blood Gas HCO3 (LAB) 21 meq/L 23 meq/L Bedside Blood Gas Total CO2 22 mEq/l 24 mEq/l Bedside Blood Gas Base Excess (LAB) -5.0 meq/L -3.0 meq/L Bedside Blood Gas O2 Saturation 94.0 % 96.0 % Leonidas Test NA NA Oxygen Delivery Device Ventilator Ventilator Bedside Oxygen Rate (breaths/min) 26 26 Bedside FiO2 60 % 60 % Blood Gas PEEP 16 16 White Blood Count 12.29 K/uL Red Blood Count 2.47 M/uL Hemoglobin 8.1 g/dL Hematocrit 25.2 % Mean Corpuscular Volume 102.0 fL Mean Corpuscular Hemoglobin 32.8 pg Mean Corpuscular Hemoglobin Concent 32.1 g/dl Platelet Count 106 K/uL Mean Platelet Volume 11.9 fL Neutrophils (%) (Auto) 87.0 % Lymphocytes (%) (Auto) 4.6 % Monocytes (%) (Auto) 5.8 % Eosinophils (%) (Auto) 0.0 % Basophils (%) (Auto) 0.3 % Neutrophils # (Auto) 10.70 K/uL Lymphocytes # (Auto) 0.56 K/uL Monocytes # (Auto) 0.71 K/uL Eosinophils # (Auto) 0.00 K/uL Basophils # (Auto) 0.04 K/uL RDW Standard Deviation 92.8 fL RDW Coefficient of Variation 25.2 % Immature Granulocyte % (Auto) 2.3 % Immature Granulocyte # (Auto) 0.28 K/uL Nucleated RBC Absolute Count (auto) 0.20 K/uL Nucleated Red Blood Cells % 1.6 % Toxic Vacuolation 1+ Large Platelets 1+ Polychromasia 1+ Basophilic Stippling OCCASIONAL Anisocytosis PRESENT Pappenheimer Bodies 1+ Prothrombin Time 16.6 SECONDS Prothromb Time International Ratio 1.6 Activated Partial Thromboplast Time 39.9 SECONDS Partial Thromboplastin Ratio 1.5 Sodium Level 138 mmol/L Potassium Level 4.3 mmol/L Chloride Level 107 mmol/L Carbon Dioxide Level 21 mmol/L Anion Gap 10.0 mmol/L Blood Urea Nitrogen 17 mg/dl Creatinine 0.92 mg/dl Est Creatinine Clear Calc Drug Dose 86.2 ml/min Estimated GFR () 83.0 Estimated GFR (Non- 71.6 BUN/Creatinine Ratio 18.7 Random Glucose 193 mg/dl Lactic Acid Level 1.9 mmol/L Calcium Level 6.3 mg/dl Phosphorus Level 1.7 mg/dl Magnesium Level 1.3 mg/dl Total Bilirubin 8.2 mg/dl Direct Bilirubin 7.8 mg/dl Aspartate Amino Transf (AST/SGOT) 54 U/L Alanine Aminotransferase (ALT/SGPT) 20 U/L Alkaline Phosphatase 209 U/L Total Protein 4.8 gm/dl Albumin 1.9 gm/dl Vancomycin Level Trough 33.1 mcg/ml Bedside Glucose (other) 179 mg/dl Test 07/03/17 05:55 Bedside Glucose (other) 194 mg/dl
[2017-07-03] MEDS: BOOST PLUS VANILLA PO SCH ×2 (08:54→21:00)
[2017-07-03] MEDS: PANTOprazole INJ 40 MG in SYRINGE 0 ML IV SCH ×2 (09:00→21:17)
[2017-07-03] MEDS: THIAMINE HCL INJ 100 MG in SYRINGE 9 ML IV SCH (10:31)
[2017-07-03] MEDS: FoLIC ACID INJ 1 MG in SYRINGE 9.8 ML IV SCH (10:31)
--- NOTE | 2017-07-03 11:35 | Palliative Care Progress Note ---
Palliative Care Progress Note Date of Service Jul 03, 2017. Subjective Pt evaluation today including: physical exam, chart review, conversation w/ [employer] consultant (discussed at ICU rounds) Voiding: gil catheter in place -Urine output mildly increased. -Patient remains intubated, sedated and chemically paralyzed. -Condition rather unchanged from yesterday. Review of Systems unable to obtain due to patient condition Objective Vital Signs Date Time Temp Pulse Resp B/P (MAP) Pulse Ox O2 Delivery O2 Flow Rate FiO2 07/03/17 09:30 87 26 96/57 (70) 94 07/03/17 09:15 88 26 95/56 (69) 93 07/03/17 09:00 90 26 100/52 (68) 94 07/03/17 08:45 89 26 101/60 (74) 94 07/03/17 08:30 85 26 101/64 (76) 94 07/03/17 08:15 74 26 94/59 (71) 96 07/03/17 08:10 73 26 91/57 (68) 96 07/03/17 08:00 50 07/03/17 08:00 Mechanical Ventilator 50 07/03/17 08:00 36.3 75 26 91/58 (69) 96 Mechanical Ventilator 50 07/03/17 07:45 77 26 98/64 (75) 97 07/03/17 07:35 50 07/03/17 07:30 77 26 97/62 (74) 96 07/03/17 07:15 65 26 99/63 (75) 100 07/03/17 07:00 68 26 100/63 (75) 100 07/03/17 06:26 60 07/03/17 05:45 72 26 115/74 (88) 98 07/03/17 05:30 63 26 116/72 (87) 100 07/03/17 05:15 68 26 118/73 (88) 100 07/03/17 05:12 60 07/03/17 05:12 Mechanical Ventilator 60 07/03/17 05:00 73 26 (94) 100 119/75 07/03/17 05:00 73 26 119/75 (90) 100 07/03/17 04:30 73 26 122/78 (93) 100 07/03/17 04:15 79 26 120/75 (90) 97 07/03/17 04:00 80 27 (89) 97 115/71 07/03/17 04:00 36.3 80 27 115/71 (86) 97 Mechanical Ventilator 60 07/03/17 03:30 80 26 131/83 (99) 100 07/03/17 03:16 60 07/03/17 03:15 82 27 111/69 (83) 91 07/03/17 03:00 62 26 (92) 99 116/73 07/03/17 03:00 62 26 116/73 (87) 99 07/03/17 02:26 60 07/03/17 02:01 63 26 119/74 (89) 100 Mechanical Ventilator 60 07/03/17 02:01 63 26 105/78 (94) 100 119/74 07/03/17 02:00 63 26 (94) 99 119/74 07/03/17 01:45 63 26 118/75 (89) 99 07/03/17 01:30 61 26 116/73 (87) 99 07/03/17 01:15 62 26 119/74 (89) 99 07/03/17 01:00 64 26 (92) 99 116/73 07/03/17 01:00 64 26 116/73 (87) 99 07/03/17 00:45 63 26 117/73 (88) 99 07/03/17 00:30 69 26 119/74 (89) 98 07/03/17 00:15 66 26 132/81 (98) 98 07/03/17 00:02 60 07/03/17 00:01 81 27 106/81 (97) 96 124/78 07/03/17 00:00 83 28 (97) 95 123/78 07/03/17 00:00 36.4 83 28 123/78 (93) 95 Mechanical Ventilator 60 07/02/17 23:59 60 07/02/17 23:59 Mechanical Ventilator 60 07/02/17 23:45 68 26 120/76 (91) 98 07/02/17 23:30 68 26 120/76 (91) 98 07/02/17 23:15 68 26 121/76 (91) 98 07/02/17 23:00 68 26 (97) 98 122/77 07/02/17 23:00 68 26 122/77 (92) 98 07/02/17 22:15 67 26 123/77 (92) 98 3/12/18 22:01 70 26 109/82 (99) 99 125/78 18 22:01 70 26 125/78 (94) 99 18 22:00 69 26 (100) 99 126/78 18 22:00 69 26 126/78 (94) 99 18 21:45 73 26 127/79 (95) 98 18 21:30 75 26 125/76 (92) 97 18 21:15 66 26 132/82 (99) 97 18 21:00 58 26 (101) 100 129/81 07/02/17 21:00 58 26 129/81 (97) 100 07/02/17 20:45 60 26 123/77 (92) 100 07/02/17 20:34 60 07/02/17 20:32 50 07/02/17 20:30 62 26 119/75 (90) 100 07/02/17 20:15 65 26 112/71 (85) 97 07/02/17 20:01 68 26 112/71 (85) 97 07/02/17 20:01 68 26 99/75 (87) 97 112/71 07/02/17 20:00 69 26 (88) 96 113/72 07/02/17 20:00 69 26 113/72 (86) 96 07/02/17 20:00 100 Mechanical Ventilator 60 07/02/17 20:00 60 07/02/17 19:45 65 26 107/68 (81) 96 07/02/17 19:30 69 26 112/71 (85) 95 07/02/17 19:15 64 26 108/69 (82) 96 07/02/17 19:00 64 26 110/70 (83) 97 07/02/17 19:00 64 26 (87) 97 110/70 07/02/17 18:45 67 26 112/72 (85) 97 07/02/17 18:30 73 26 117/75 (89) 07/02/17 18:15 62 26 105/66 (79) 96 07/02/17 18:00 36.3 64 26 108/67 (81) 95 Mechanical Ventilator 50 07/02/17 17:53 50 07/02/17 17:45 61 26 107/67 (80) 96 3/12/18 17:30 64 26 108/67 (81) 96 18 17:15 65 26 115/72 (86) 98 18 17:00 65 26 109/68 (82) 98 18 16:45 63 26 109/68 (82) 98 07/02/17 16:30 65 26 116/73 (87) 99 18 16:15 66 26 115/72 (86) 98 07/02/17 16:00 Mechanical Ventilator 50 07/02/17 16:00 36.3 66 26 118/75 (89) 96 Mechanical Ventilator 50 07/02/17 16:00 50 07/02/17 15:45 62 26 107/66 (80) 97 07/02/17 15:30 62 26 107/66 (80) 97 07/02/17 15:15 60 26 106/65 (79) 97 07/02/17 15:00 62 26 106/66 (79) 97 07/02/17 14:48 50 07/02/17 14:45 62 26 105/64 (78) 97 07/02/17 14:30 63 26 109/68 (82) 98 07/02/17 14:15 67 26 105/65 (78) 97 07/02/17 14:00 67 26 105/64 (78) 97 07/02/17 13:45 73 26 116/71 (86) 95 07/02/17 13:30 64 26 96/75 (82) 97 18 13:15 65 26 109/66 (80) 97 07/02/17 13:00 64 26 108/66 (80) 96 07/02/17 12:45 63 26 108/66 (80) 96 18 12:30 63 26 107/65 (79) 96 07/02/17 12:15 64 26 108/66 (80) 96 07/02/17 12:00 50 07/02/17 12:00 Mechanical Ventilator 50 07/02/17 12:00 36.6 65 26 107/65 (79) 96 Mechanical Ventilator 50 07/02/17 11:30 67 26 113/67 (82) 96 Physical Exam General Appearance: no apparent distress, + pertinent finding (widespread edema to entire body) ENT: hearing grossly normal Neck: supple, no JVD Respiratory/Chest: no respiratory distress, no accessory muscle use, + pertinent finding (mechanically ventilated) Cardiovascular: regular rate, rhythm, + pertinent finding (on levophed and vasopressin) Abdomen: + pertinent finding (did not assess abdomen at this time) Neurologic/Psychiatric: + pertinent finding (sedated) Skin: + jaundice Laboratory Results Last 24 Hours Test 07/02/17 11:30 07/02/17 11:35 07/02/17 13:37 07/02/17 14:54 Blood Gas Specimen Type ARTERIAL Blood Gas Sample Site L Femoral Blood Gas Patient Temperature 36.3 Bedside Blood Gas pH (LAB) 7.26 Bedside Blood Gas pCO2 (LAB) 41 mmHg Bedside Blood Gas pO2 (LAB) 75 mmHg Bedside Blood Gas HCO3 (LAB) 19 meq/L Bedside Blood Gas Total CO2 20 mEq/l Bedside Blood Gas Base Excess (LAB) -9.0 meq/L Bedside Blood Gas O2 Saturation 93.0 % Oxygen Saturation (Pulse Oximetry) 96 % Leonidas Test NOT PERFORMED Oxygen Delivery Device Ventilator Bedside FiO2 50 % Blood Gas PEEP 18 Blood Gas Pressure Support 16 Bedside Glucose (other) 179 mg/dl 150 mg/dl 135 mg/dl Test 07/02/17 15:27 07/02/17 15:31 07/02/17 15:56 07/02/17 16:57 Sodium Level 140 mmol/L Potassium Level 3.7 mmol/L Chloride Level 108 mmol/L Carbon Dioxide Level 22 mmol/L Anion Gap 10.0 mmol/L Blood Urea Nitrogen 17 mg/dl Creatinine 0.98 mg/dl Est Creatinine Clear Calc Drug Dose 80.9 ml/min Estimated GFR () 76.9 Estimated GFR (Non- 66.3 BUN/Creatinine Ratio 17.0 Random Glucose 143 mg/dl Lactic Acid Level 2.9 mmol/L Calcium Level 6.5 mg/dl Blood Gas Specimen Type ARTERIAL Blood Gas Sample Site L Femoral Blood Gas Patient Temperature 36.3 Bedside Blood Gas pH (LAB) 7.33 Bedside Blood Gas pCO2 (LAB) 37 mmHg Bedside Blood Gas pO2 (LAB) 79 mmHg Bedside Blood Gas HCO3 (LAB) 20 meq/L Bedside Blood Gas Total CO2 21 mEq/l Bedside Blood Gas Base Excess (LAB) -6.0 meq/L Bedside Blood Gas O2 Saturation 95.0 % Oxygen Saturation (Pulse Oximetry) 97 % Leonidas Test NOT PERFORMED Oxygen Delivery Device Ventilator Bedside FiO2 50 % Blood Gas PEEP 16 Blood Gas Pressure Support 16 Bedside Glucose (other) 126 mg/dl 109 mg/dl Test 07/02/17 18:32 07/02/17 19:25 07/02/17 20:17 07/02/17 20:38 Bedside Glucose (other) 95 mg/dl 90 mg/dl 108 mg/dl Blood Gas Sample Site Art Line Bedside Blood Gas pH (LAB) 7.31 Bedside Blood Gas pCO2 (LAB) 44 mmHg Bedside Blood Gas pO2 (LAB) 62 mmHg Bedside Blood Gas HCO3 (LAB) 22 meq/L Bedside Blood Gas Total CO2 23 mEq/l Bedside Blood Gas Base Excess (LAB) -4.0 meq/L Bedside Blood Gas O2 Saturation 90.0 % Leonidas Test Pass Oxygen Delivery Device Ventilator Bedside Oxygen Rate (breaths/min) 26 Bedside FiO2 50 % Blood Gas PEEP 16 Test 07/02/17 21:45 07/02/17 22:39 07/02/17 22:45 07/02/17 23:29 Bedside Glucose (other) 119 mg/dl 146 mg/dl Lactic Acid Level 2.1 mmol/L Blood Gas Sample Site Art Line Bedside Blood Gas pH (LAB) 7.32 Bedside Blood Gas pCO2 (LAB) 40 mmHg Bedside Blood Gas pO2 (LAB) 76 mmHg Bedside Blood Gas HCO3 (LAB) 21 meq/L Bedside Blood Gas Total CO2 22 mEq/l Bedside Blood Gas Base Excess (LAB) -5.0 meq/L Bedside Blood Gas O2 Saturation 94.0 % Leonidas Test NA Oxygen Delivery Device Ventilator Bedside Oxygen Rate (breaths/min) 26 Bedside FiO2 60 % Blood Gas PEEP 16 Test 07/03/17 03:52 07/03/17 04:04 07/03/17 05:51 07/03/17 05:55 White Blood Count 12.29 K/uL Red Blood Count 2.47 M/uL Hemoglobin 8.1 g/dL Hematocrit 25.2 % Mean Corpuscular Volume 102.0 fL Mean Corpuscular Hemoglobin 32.8 pg Mean Corpuscular Hemoglobin Concent 32.1 g/dl Platelet Count 106 K/uL Mean Platelet Volume 11.9 fL Neutrophils (%) (Auto) 87.0 % Lymphocytes (%) (Auto) 4.6 % Monocytes (%) (Auto) 5.8 % Eosinophils (%) (Auto) 0.0 % Basophils (%) (Auto) 0.3 % Neutrophils # (Auto) 10.70 K/uL Lymphocytes # (Auto) 0.56 K/uL Monocytes # (Auto) 0.71 K/uL Eosinophils # (Auto) 0.00 K/uL Basophils # (Auto) 0.04 K/uL RDW Standard Deviation 92.8 fL RDW Coefficient of Variation 25.2 % Immature Granulocyte % (Auto) 2.3 % Immature Granulocyte # (Auto) 0.28 K/uL Nucleated RBC Absolute Count (auto) 0.20 K/uL Nucleated Red Blood Cells % 1.6 % Toxic Vacuolation 1+ Large Platelets 1+ Polychromasia 1+ Basophilic Stippling OCCASIONAL Anisocytosis PRESENT Pappenheimer Bodies 1+ Prothrombin Time 16.6 SECONDS Prothromb Time International Ratio 1.6 Activated Partial Thromboplast Time 39.9 SECONDS Partial Thromboplastin Ratio 1.5 Sodium Level 138 mmol/L Potassium Level 4.3 mmol/L Chloride Level 107 mmol/L Carbon Dioxide Level 21 mmol/L Anion Gap 10.0 mmol/L Blood Urea Nitrogen 17 mg/dl Creatinine 0.92 mg/dl Est Creatinine Clear Calc Drug Dose 86.2 ml/min Estimated GFR () 83.0 Estimated GFR (Non- 71.6 BUN/Creatinine Ratio 18.7 Random Glucose 193 mg/dl Lactic Acid Level 1.9 mmol/L Calcium Level 6.3 mg/dl Phosphorus Level 1.7 mg/dl Magnesium Level 1.3 mg/dl Total Bilirubin 8.2 mg/dl Direct Bilirubin 7.8 mg/dl Aspartate Amino Transf (AST/SGOT) 54 U/L Alanine Aminotransferase (ALT/SGPT) 20 U/L Alkaline Phosphatase 209 U/L Total Protein 4.8 gm/dl Albumin 1.9 gm/dl Vancomycin Level Trough 33.1 mcg/ml Bedside Glucose (other) 179 mg/dl 194 mg/dl Blood Gas Sample Site Art Line Bedside Blood Gas pH (LAB) 7.33 Bedside Blood Gas pCO2 (LAB) 43 mmHg Bedside Blood Gas pO2 (LAB) 85 mmHg Bedside Blood Gas HCO3 (LAB) 23 meq/L Bedside Blood Gas Total CO2 24 mEq/l Bedside Blood Gas Base Excess (LAB) -3.0 meq/L Bedside Blood Gas O2 Saturation 96.0 % Leonidas Test NA Oxygen Delivery Device Ventilator Bedside Oxygen Rate (breaths/min) 26 Bedside FiO2 60 % Blood Gas PEEP 16 Test 07/03/17 07:45 07/03/17 08:49 07/03/17 09:56 07/03/17 10:06 Bedside Glucose (other) 160 mg/dl 142 mg/dl 127 mg/dl Lactic Acid Level 1.8 mmol/L Assessment and Plan Problem list: Obtundation Abdominal pain C. diff colitis Sepsis Alcoholic cirrhosis ARDS, severe Goals of care Palliative care recs: -Continue current medical management. -Patient not declining, but not showing any signs of significant recover so far this morning. -Kidney function remains stable, urine output slightly increasing. -Continue to assess for improvement and continue to work with/support family. Total time spent 25 minutes with >50% of time spent at bedside discussing plan of care with ICU team/nursing. Patient discussed at ICU rounds as well. Palliative Performance Scale: 10 %
[2017-07-03 16:49] LABS: CREATININE 0.93 mg/dl (0.60-1.20)
[2017-07-03 16:50] LABS: CALCIUM 6.4 mg/dl (8.5-10.1)
--- NOTE | 2017-07-03 22:20 | Progress Note ---
Subjective Date of Service: Jul 03, 2017. Subjective Pt evaluation today including: physical exam, chart review, lab review 52 yo female who is sedated at this time. Unable to obtain more information. This includes ROS Problem List Medical Problems: (1) Abdominal pain Status: Acute (2) Acute pancreatitis Status: Acute (3) Alcohol abuse Status: Acute (4) Alcohol intoxication Status: Acute (5) Anemia Status: Acute (6) Anemia Status: Acute (7) Biliary obstruction Status: Acute (8) C. difficile colitis Status: Acute (9) C. difficile diarrhea Status: Acute (10) Chest pain Status: Acute (11) Contusion of multiple sites Status: Acute (12) Dehydration Status: Acute (13) Dehydration Status: Acute (14) Encounter for smoking cessation counseling Status: Acute (15) Epigastric abdominal pain Status: Acute (16) Fall Status: Acute (17) Fall due to slipping on ice or snow Status: Acute (18) Fracture of left distal radius Status: Acute (19) Hypocalcemia Status: Acute (20) Hypomagnesemia Status: Acute (21) Hypomagnesemia Status: Acute (22) Hypotension Status: Acute (23) Lactic acidosis Status: Acute (24) Liver failure Status: Acute (25) Pancreatitis Status: Acute Review of Systems All Other Systems: Reviewed and Negative Medications Current Inpatient Medications Medications (Trade) Dose Ordered Sig/Razia Route Start Time Stop Time Status Last Admin Dose Admin Pantoprazole Sodium 40 mg/ Syringe 10 ml @ 5 mls/min BID IV 06/27/17 09:00 07/27/17 08:59 07/03/17 21:17 5 MLS/MIN Thiamine HCl 100 mg/Syringe 10 ml @ 2 mls/min Q24H IV 06/28/17 11:00 07/28/17 10:59 07/03/17 10:31 2 MLS/MIN Folic Acid 1 mg/ Syringe 10 ml @ 5 mls/min Q24H IV 06/28/17 11:00 07/28/17 10:59 07/03/17 10:31 5 MLS/MIN Lorazepam (Ativan Inj) 1 mg ONE PRN IV 06/27/17 09:15 Enteral Nutritional Formula (Boost Plus Vanilla) 1 can BID PO 06/27/17 21:00 07/27/17 20:59 06/30/17 19:35 1 CAN Ondansetron HCl (Zofran Inj) 4 mg Q6H PRN IV 06/27/17 17:46 07/27/17 17:45 Hydromorphone HCl (Dilaudid Inj) 1 mg Q3HWA PRN IV 06/29/17 09:15 07/13/17 09:14 06/30/17 20:36 1 MG Vancomycin HCl (Vancomycin Oral Soln) 250 mg Q6H PO 06/30/17 10:00 07/10/17 09:59 07/03/17 22:01 250 MG Raspberry (Raspberry Syrup 5ml Cup) 5 ml Q6H PO 06/30/17 10:00 07/14/17 09:59 07/01/17 21:21 5 ML Albuterol/ Ipratropium (Duoneb) 3 ml Q4 PRN INH 07/01/17 05:30 07/31/17 05:29 Future Hold 07/01/17 10:06 3 ML Methylprednisolone Sodium Succinate 40 mg/Syringe 0.64 ml @ 1.5 mls/min Q8H IV 07/01/17 16:00 07/15/17 16:01 07/03/17 16:25 1.5 MLS/MIN Metronidazole 500 mg/Prmx 100 ml @ 100 mls/hr Q8H IV 07/01/17 10:00 07/07/17 09:59 07/03/17 18:11 100 MLS/HR Cefepime HCl (Consult) 1 ea UD PRN N/A 07/01/17 07:45 07/11/17 07:44 Norepinephrine Bitartrate 8 mg/ Dextrose 508 ml @ 0 mls/hr Q0M PRN IV 07/01/17 11:15 07/31/17 11:14 07/02/17 23:05 21.9 MLS/HR Vasopressin 50 units/Sodium Chloride 502.5 ml @ 0 mls/hr Q0M PRN IV 07/01/17 11:53 07/31/17 11:52 07/03/17 22:02 24 MLS/HR Midazolam HCl 250 ml @ 0 mls/hr Q0M IV 07/01/17 12:33 07/31/17 12:32 07/03/17 11:44 24 MLS/HR Fentanyl Citrate 250 ml @ 0 mls/hr Q0M PRN IV 07/01/17 21:15 07/15/17 21:14 07/03/17 11:43 25 MLS/HR Insulin Human Regular 250 units/ Sodium Chloride 252.5 ml @ 0 mls/hr Q24H IV 07/02/17 00:00 08/01/17 00:00 07/03/17 06:18 3.7 MLS/HR Insulin Aspart (novoLOG ASPART) [facility] 07/02/17 08:00 08/01/17 07:59 Future hold Glucose (Glucose 40% Gel) 15-30 GRAMS 15 GRAMS... UD PRN PO 07/01/17 23:45 07/31/17 23:44 Glucose (Glucose Chew Tab) 4-8 Tablets 4 Tabl... UD PRN PO 07/01/17 23:45 07/31/17 23:44 Dextrose (Dextrose 50% 50ML Syringe) 25-50ML OF 50% DW IV FOR... UD PRN IV 07/01/17 23:45 07/31/17 23:44 Glucagon (Glucagon Inj) 1 mg UD PRN SQ 07/01/17 23:45 07/31/17 23:44 Albuterol (Ventolin Hfa Inhaler) 4 puffs Q4R INH 07/02/17 08:00 08/01/17 07:59 07/03/17 19:18 4 PUFFS Ipratropium [place] (Atrovent Hfa Inhaler) 4 puffs Q4R INH 07/02/17 08:00 08/01/17 07:59 07/03/17 19:18 4 PUFFS Ascorbic Acid 1500 mg/Sodium Chloride 103 ml @ 206 mls/hr Q6H IV 07/02/17 10:00 07/06/17 04:29 07/03/17 22:01 206 MLS/HR Heparin Sodium (Porcine) (Heparin Sq 5000 Unit/0.5ml) 5,000 unit Q8H SQ 07/02/17 14:00 08/01/17 13:59 07/03/17 22:02 5,000 UNIT Cefepime HCl 2000 mg/Syringe 20 ml @ 5 mls/min Q8H IV 07/02/17 17:00 07/11/17 16:59 07/03/17 17:10 5 MLS/MIN Vancomycin HCl (Vancomycin Enema) 500 mg Q6H LA 07/02/17 20:00 07/12/17 19:59 Future hold 07/03/17 19:27 500 MG Artificial Tears (Lacri-Lube Oph Oint) 1 appln Q2H PRN OPB 07/02/17 21:45 08/01/17 21:44 Methylprednisolone Sodium Succinate 40 mg/Syringe 0.64 ml @ 1.5 mls/min Q12H IV 07/16/17 04:00 07/22/17 16:01 Methylprednisolone Sodium Succinate 40 mg/Syringe 0.64 ml @ 1.5 mls/min Q24H IV 07/23/17 04:00 07/29/17 03:59 Methylprednisolone Sodium Succinate 20 mg/Syringe 0.32 ml @ 1.5 mls/min Q24H IV 07/29/17 04:00 07/30/17 04:01 Methylprednisolone Sodium Succinate 10 mg/Syringe 0.16 ml @ 1.5 mls/min Q24H IV 07/31/17 04:00 08/01/17 04:01 Objective Vital Signs Date Time Temp Pulse Resp B/P (MAP) Pulse Ox O2 Delivery O2 Flow Rate FiO2 07/03/17 22:00 76 24 (78) 95 103/65 07/03/17 21:00 72 24 (79) 95 109/64 07/03/17 20:00 96 Mechanical Ventilator 40 07/03/17 20:00 73 24 98/74 (80) 96 115/71 07/03/17 20:00 40 07/03/17 20:00 36.8 07/03/17 19:18 40 07/03/17 19:00 73 24 109/69 (85) 97 07/03/17 18:45 78 24 109/69 (82) 100 07/03/17 18:30 76 24 99/61 (74) 95 07/03/17 18:15 76 24 98/61 (73) 94 07/03/17 18:07 40 07/03/17 18:00 76 24 93/59 (70) 94 07/03/17 17:45 76 24 104/64 (77) 94 07/03/17 17:30 77 24 104/65 (78) 93 07/03/17 17:15 76 24 110/70 (83) 95 07/03/17 17:00 76 24 106/66 (79) 96 18 16:45 78 24 105/65 (78) 96 07/03/17 16:30 82 24 102/64 (77) 90 07/03/17 16:15 73 24 107/67 (80) 98 07/03/17 16:00 40 07/03/17 16:00 36.4 77 24 105/66 (79) 98 Mechanical Ventilator 40 07/03/17 16:00 Mechanical Ventilator 40 07/03/17 15:45 78 24 105/64 (78) 95 07/03/17 15:30 78 24 112/70 (84) 96 07/03/17 15:15 80 16 115/71 (86) 95 07/03/17 15:02 40 07/03/17 15:00 79 25 110/69 (83) 97 07/03/17 14:45 85 16 108/69 (82) 91 07/03/17 14:30 77 24 110/69 (83) 97 07/03/17 14:15 78 24 110/68 (82) 94 07/03/17 14:00 78 24 113/71 (85) 07/03/17 13:45 81 22 113/72 (86) 95 07/03/17 13:35 82 24 103/62 (76) 95 07/03/17 13:30 84 18 108/63 (78) 92 07/03/17 13:15 78 24 105/61 (76) 97 07/03/17 13:00 80 24 106/65 (79) 94 07/03/17 12:45 81 24 98/58 (71) 96 Mechanical Ventilator 40 07/03/17 12:30 88 24 104/63 (77) 98 Mechanical Ventilator 07/03/17 12:17 50 07/03/17 12:15 76 24 99/62 (74) 93 Mechanical Ventilator 07/03/17 12:10 40 07/03/17 12:02 73 24 99/62 (74) 98 Mechanical Ventilator 07/03/17 12:01 50 07/03/17 12:00 Mechanical Ventilator 40 07/03/17 12:00 36.4 73 24 97/61 (73) 96 Mechanical Ventilator 07/03/17 12:00 40 07/03/17 11:45 71 24 99/62 (74) 97 Mechanical Ventilator 07/03/17 11:30 73 24 97/61 (73) 97 Mechanical Ventilator 07/03/17 11:15 74 24 96/60 (72) 96 Mechanical Ventilator 07/03/17 11:00 78 26 100/63 (75) 96 Mechanical Ventilator 07/03/17 10:45 78 26 94/58 (70) 96 Mechanical Ventilator 07/03/17 10:30 79 26 96/60 (72) 95 Mechanical Ventilator 07/03/17 10:15 81 26 96/59 (71) 95 Mechanical Ventilator 07/03/17 10:00 85 26 97/59 (72) 94 Mechanical Ventilator 07/03/17 09:45 85 26 94/56 (69) 94 Mechanical Ventilator 07/03/17 09:30 87 26 96/57 (70) 94 07/03/17 09:15 88 26 95/56 (69) 93 07/03/17 09:00 90 26 100/52 (68) 94 07/03/17 08:45 89 26 101/60 (74) 94 07/03/17 08:30 85 26 101/64 (76) 94 07/03/17 08:15 74 26 94/59 (71) 96 07/03/17 08:10 73 26 91/57 (68) 96 07/03/17 08:00 50 07/03/17 08:00 Mechanical Ventilator 50 07/03/17 08:00 36.3 75 26 91/58 (69) 96 Mechanical Ventilator 50 07/03/17 07:45 77 26 98/64 (75) 97 07/03/17 07:35 50 07/03/17 07:30 77 26 97/62 (74) 96 07/03/17 07:15 65 26 99/63 (75) 100 07/03/17 07:00 68 26 100/63 (75) 100 07/03/17 06:26 60 07/03/17 05:45 72 26 115/74 (88) 98 07/03/17 05:30 63 26 116/72 (87) 100 07/03/17 05:15 68 26 118/73 (88) 100 07/03/17 05:12 60 07/03/17 05:12 Mechanical Ventilator 60 07/03/17 05:00 73 26 (94) 100 119/75 07/03/17 05:00 73 26 119/75 (90) 100 07/03/17 04:30 73 26 122/78 (93) 100 07/03/17 04:15 79 26 120/75 (90) 97 07/03/17 04:00 80 27 (89) 97 115/71 07/03/17 04:00 36.3 80 27 115/71 (86) 97 Mechanical Ventilator 60 07/03/17 03:30 80 26 131/83 (99) 100 07/03/17 03:16 60 07/03/17 03:15 82 27 111/69 (83) 91 07/03/17 03:00 62 26 (92) 99 116/73 07/03/17 03:00 62 26 116/73 (87) 99 07/03/17 02:26 60 07/03/17 02:01 63 26 119/74 (89) 100 Mechanical Ventilator 60 07/03/17 02:01 63 26 105/78 (94) 100 119/74 07/03/17 02:00 63 26 (94) 99 119/74 07/03/17 01:45 63 26 118/75 (89) 99 07/03/17 01:30 61 26 116/73 (87) 99 07/03/17 01:15 62 26 119/74 (89) 99 07/03/17 01:00 64 26 (92) 99 116/73 07/03/17 01:00 64 26 116/73 (87) 99 07/03/17 00:45 63 26 117/73 (88) 99 07/03/17 00:30 69 26 119/74 (89) 98 07/03/17 00:15 66 26 132/81 (98) 98 07/03/17 00:02 60 07/03/17 00:01 81 27 106/81 (97) 96 124/78 07/03/17 00:00 83 28 (97) 95 123/78 07/03/17 00:00 36.4 83 28 123/78 (93) 95 Mechanical Ventilator 60 07/02/17 23:59 60 07/02/17 23:59 Mechanical Ventilator 60 07/02/17 23:45 68 26 120/76 (91) 98 07/02/17 23:30 68 26 120/76 (91) 98 07/02/17 23:15 68 26 121/76 (91) 98 07/02/17 23:00 68 26 (97) 98 122/77 07/02/17 23:00 68 26 122/77 (92) 98 Physical Exam Comments: General Appearance: no apparent distress, intubated Neck: supple, no adenopathy, no JVD, trachea midline Respiratory/Chest: chest non-tender, no respiratory distress, no accessory muscle use, + decreased breath sounds, + crackles Cardiovascular: regular rate, rhythm, no edema, no gallop, no JVD, no murmur Abdomen: no organomegaly, + abnormal bowel sounds (hypoactive), + distended, Extremities: normal range of motion, non-tender, normal inspection, no pedal edema, no calf tenderness, pelvis stable Neurologic/Psychiatric: tape coater II-XII nml as tested, + pertinent finding (sedated on Fentanyl) Skin: normal color, warm/dry, no rash Laboratory Results Last 24 Hours Test 07/02/17 22:39 07/02/17 22:45 07/02/17 23:29 07/03/17 03:52 Lactic Acid Level 2.1 mmol/L 1.9 mmol/L Bedside Glucose (other) 146 mg/dl Blood Gas Sample Site Art Line Bedside Blood Gas pH (LAB) 7.32 Bedside Blood Gas pCO2 (LAB) 40 mmHg Bedside Blood Gas pO2 (LAB) 76 mmHg Bedside Blood Gas HCO3 (LAB) 21 meq/L Bedside Blood Gas Total CO2 22 mEq/l Bedside Blood Gas Base Excess (LAB) -5.0 meq/L Bedside Blood Gas O2 Saturation 94.0 % Leonidas Test NA Oxygen Delivery Device Ventilator Bedside Oxygen Rate (breaths/min) 26 Bedside FiO2 60 % Blood Gas PEEP 16 White Blood Count 12.29 K/uL Red Blood Count 2.47 M/uL Hemoglobin 8.1 g/dL Hematocrit 25.2 % Mean Corpuscular Volume 102.0 fL Mean Corpuscular Hemoglobin 32.8 pg Mean Corpuscular Hemoglobin Concent 32.1 g/dl Platelet Count 106 K/uL Mean Platelet Volume 11.9 fL Neutrophils (%) (Auto) 87.0 % Lymphocytes (%) (Auto) 4.6 % Monocytes (%) (Auto) 5.8 % Eosinophils (%) (Auto) 0.0 % Basophils (%) (Auto) 0.3 % Neutrophils # (Auto) 10.70 K/uL Lymphocytes # (Auto) 0.56 K/uL Monocytes # (Auto) 0.71 K/uL Eosinophils # (Auto) 0.00 K/uL Basophils # (Auto) 0.04 K/uL RDW Standard Deviation 92.8 fL RDW Coefficient of Variation 25.2 % Immature Granulocyte % (Auto) 2.3 % Immature Granulocyte # (Auto) 0.28 K/uL Nucleated RBC Absolute Count (auto) 0.20 K/uL Nucleated Red Blood Cells % 1.6 % Toxic Vacuolation 1+ Large Platelets 1+ Polychromasia 1+ Basophilic Stippling OCCASIONAL Anisocytosis PRESENT Pappenheimer Bodies 1+ Prothrombin Time 16.6 SECONDS Prothromb Time International Ratio 1.6 Activated Partial Thromboplast Time 39.9 SECONDS Partial Thromboplastin Ratio 1.5 Sodium Level 138 mmol/L Potassium Level 4.3 mmol/L Chloride Level 107 mmol/L Carbon Dioxide Level 21 mmol/L Anion Gap 10.0 mmol/L Blood Urea Nitrogen 17 mg/dl Creatinine 0.92 mg/dl Est Creatinine Clear Calc Drug Dose 86.2 ml/min Estimated GFR () 83.0 Estimated GFR (Non- 71.6 BUN/Creatinine Ratio 18.7 Random Glucose 193 mg/dl Calcium Level 6.3 mg/dl Phosphorus Level 1.7 mg/dl Magnesium Level 1.3 mg/dl Total Bilirubin 8.2 mg/dl Direct Bilirubin 7.8 mg/dl Aspartate Amino Transf (AST/SGOT) 54 U/L Alanine Aminotransferase (ALT/SGPT) 20 U/L Alkaline Phosphatase 209 U/L Total Protein 4.8 gm/dl Albumin 1.9 gm/dl Vancomycin Level Trough 33.1 mcg/ml Test 07/03/17 04:04 07/03/17 05:51 07/03/17 05:55 07/03/17 07:45 Bedside Glucose (other) 179 mg/dl 194 mg/dl 160 mg/dl Blood Gas Sample Site Art Line Bedside Blood Gas pH (LAB) 7.33 Bedside Blood Gas pCO2 (LAB) 43 mmHg Bedside Blood Gas pO2 (LAB) 85 mmHg Bedside Blood Gas HCO3 (LAB) 23 meq/L Bedside Blood Gas Total CO2 24 mEq/l Bedside Blood Gas Base Excess (LAB) -3.0 meq/L Bedside Blood Gas O2 Saturation 96.0 % Leonidas Test NA Oxygen Delivery Device Ventilator Bedside Oxygen Rate (breaths/min) 26 Bedside FiO2 60 % Blood Gas PEEP 16 Test 07/03/17 08:49 07/03/17 09:56 07/03/17 10:06 07/03/17 11:02 Bedside Glucose (other) 142 mg/dl 127 mg/dl 116 mg/dl Lactic Acid Level 1.8 mmol/L Test 07/03/17 11:58 07/03/17 12:10 07/03/17 13:30 07/03/17 14:39 Bedside Glucose (other) 106 mg/dl 99 mg/dl 98 mg/dl Blood Gas Sample Site Art Line Bedside Blood Gas pH (LAB) 7.28 Bedside Blood Gas pCO2 (LAB) 47 mmHg Bedside Blood Gas pO2 (LAB) 87 mmHg Bedside Blood Gas HCO3 (LAB) 22 meq/L Bedside Blood Gas Total CO2 24 mEq/l Bedside Blood Gas Base Excess (LAB) -5.0 meq/L Bedside Blood Gas O2 Saturation 96.0 % Leonidas Test NA Oxygen Delivery Device Ventilator Bedside Oxygen Rate (breaths/min) 24 Bedside FiO2 50 % Blood Gas PEEP 16 Test 07/03/17 15:43 07/03/17 16:13 07/03/17 16:41 07/03/17 17:40 Bedside Glucose (other) 96 mg/dl 92 mg/dl 98 mg/dl Sodium Level 139 mmol/L Potassium Level 4.0 mmol/L Chloride Level 107 mmol/L Carbon Dioxide Level 22 mmol/L Anion Gap 10.0 mmol/L Blood Urea Nitrogen 18 mg/dl Creatinine 0.93 mg/dl Est Creatinine Clear Calc Drug Dose 87.0 ml/min Estimated GFR () 81.9 Estimated GFR (Non- 70.7 BUN/Creatinine Ratio 19.2 Random Glucose 104 mg/dl Calcium Level 6.4 mg/dl Test 07/03/17 18:06 07/03/17 18:39 07/03/17 19:44 07/03/17 20:38 Blood Gas Sample Site Art Line Bedside Blood Gas pH (LAB) 7.38 Bedside Blood Gas pCO2 (LAB) 36 mmHg Bedside Blood Gas pO2 (LAB) 60 mmHg Bedside Blood Gas HCO3 (LAB) 22 meq/L Bedside Blood Gas Total CO2 23 mEq/l Bedside Blood Gas Base Excess (LAB) -4.0 meq/L Bedside Blood Gas O2 Saturation 91.0 % Leonidas Test NA Oxygen Delivery Device Ventilator Bedside Oxygen Rate (breaths/min) 24 Bedside FiO2 40 % Blood Gas PEEP 14 Bedside Glucose (other) 94 mg/dl 101 mg/dl 105 mg/dl Test 07/03/17 21:51 Bedside Glucose (other) 105 mg/dl Assessment and Plan 52 yo female with history of alcohol abuse, cirrhosis, c diff colitis who presented with weakness, hypotension, bloody diarrhea, KEVIN, acidosis - Septic shock: suspected source is pneumonia, likely aspiration vs colitis Source of sepsis: unclear Surgery is recommending possible total colectomy, however given her critical state and unclear that she may have more of a respiratory issue, pressors, bicarb drip. This procedure is being held for now. IV fluids, pressor support with Levophed, Vasopressin, poor UO follow up blood cultures drawn today continue Flagyl, Cefepime. Hold vanco today abdomen still distended but no acute findings on CT abdomen Decreasing norepinephrine - Acute hypoxic respiratory failure, likely from ARDS intubated, ventilator support management per ICU ABG had decreased o2 of 60%. 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 MELD score is 20 - Lactic acidosis: likely from shock, monitor LA, fluid support - KEVIN: Cr is improved but urine output is not adequate 800ml out today despite [id number] input via IV continue to monitor Cr q4, follow UO in gil - Anemia: HB improved to above 8 stable. will continue to monitor h/o slow GI bleeding for weeks per family transfused 2 units PRBC initially, responded well, no further signs of bleeding - Hypokalemia: resolved, continue to monitor - Hypophosphatemia: 1.7 today, replace - Hypomagnesemia: 1.3 today, replace - Alcoholism, last drink was two days prior to admission place on withdrawal protocol, had some tremors on admission, resolved for time being thiamine and folate daily no signs of DT's - Hyperbilirubinemia: hepatic steatosis on imaging, likely developing cirrhosis with alcoholism history supportive care, continue to monitor, bili down to 8 today, INR is 1.7 mother will be decision maker, change to Level 5 DNR if heart would stop discussed held with RN and yarn carrier present
[2017-07-04] VITALS (34 sets, daily range): BP systolic 88–124; BP diastolic 58–76; PULSE 74–95; TEMP 36.7–37.1; O2SAT 87–98
[2017-07-04] MEDS: INSULIN REGULAR 250 UNITS in SODIUM CHLORIDE 0.9% 250ML 250 ML IV SCH (00:23)
[2017-07-04] MEDS: METHYLPREDNISOLONE IV 40 MG in SYRINGE 0 ML IV SCH ×3 (00:25→16:49)
[2017-07-04] MEDS: CEFEPIME IV 2,000 MG in SYRINGE 7.5 ML IV SCH ×3 (00:31→16:50)
[2017-07-04] MEDS: VANCOMYCIN ENEMA PR SCH ×4 (01:30→20:35)
[2017-07-04] MEDS: METRONIDAZOLE / NSS 500 MG in PREMIXED NSS 100 ML IV SCH ×3 (01:30→17:57)
[2017-07-04] MEDS: IPRATROPIUM BROMIDE HFA INHALER INH SCH ×6 (02:15→23:09)
[2017-07-04] MEDS: ALBUTEROL HFA 8 GM INHALER INH SCH ×6 (02:15→23:09)
[2017-07-04] MEDS: VANCOMYCIN HCL 250 MG/5 ML SOLN PO SCH ×4 (03:44→21:38)
[2017-07-04] MEDS: RASPBERRY SYRUP 5 ML UDP PO SCH (03:44)
[2017-07-04] MEDS: ASCORBIC ACID INJ 1,500 MG in NSS 100 ML IV SCH ×4 (03:44→21:47)
[2017-07-04] MEDS: HEPARIN SOD 5000 UNIT/0.5 ML CARP SQ SCH ×3 (05:29→21:37)
[2017-07-04 06:15] LABS: HEMATOCRIT 23.3 % (37-47); HEMOGLOBIN 7.5 g/dL (12.0-16.0); MEAN CELL VOLUME 102.2 fL (80-100); MEAN CORPUSCULAR HEMOGLOBIN 32.9 pg (25-34); MEAN CORPUSCULAR HGB CONC 32.2 g/dl (32-36); NUCLEATED RED BLOOD CELL ABS 0.43 K/uL (0-0); RED CELL DISTRIBUTION WIDTH CV 25.5 % (11.5-14.5); RED CELL DISTRIBUTION WIDTH SD 92.9 fL (36.4-46.3); WHITE BLOOD COUNT 11.64 K/uL (4.8-10.8)
[2017-07-04 06:21] LABS: INR 1.5 (0.9-1.1)
[2017-07-04 06:57] LABS: CALCIUM 6.3 mg/dl (8.5-10.1); CREATININE 1.02 mg/dl (0.60-1.20); PHOSPHORUS 1.6 mg/dl (2.5-4.9); POTASSIUM 4.2 mmol/L (3.5-5.1)
--- NOTE | 2017-07-04 07:01 | DIAGNOSTIC IMAGING REPORT ---
CHEST ONE VIEW PORTABLE CLINICAL HISTORY: ARDS dyspnea. Tube position. COMPARISON STUDY: 07/03/2017 FINDINGS: Endotracheal tube 3 cm both maria del rosario. Slight improvement in aeration of the mid and upper lung regions bilaterally. Persistent bibasilar parenchymal infiltrative change. Nasogastric tube continues to be inferior to the diaphragm. IMPRESSION: Improving aeration of the mid to upper lung regions bilaterally. Persistent bibasilar parenchymal infiltrative/pulmonary edematous change. The above report was generated using voice recognition software. It may contain grammatical, syntax or spelling errors. Electronically signed by: Bart Kay M.D. 07/04/2017 7:00 AM Dictated Date/Time: 07/04/2017 6:59 AM
[2017-07-04 07:24] LABS: MEAN PLATELET VOLUME 10.2 fL (7.4-10.4); PLATELET COUNT 80 K/uL (130-400)
[2017-07-04] MEDS: INSULIN ASPART 100 UNITS/ML 3 ML PEN SC SCH ×4 (07:46→20:36)
[2017-07-04] MEDS: BOOST PLUS VANILLA PO SCH (08:00)
[2017-07-04] MEDS: PANTOprazole INJ 40 MG in SYRINGE 0 ML IV SCH ×2 (08:02→20:35)
[2017-07-04] MEDS: FENTANYL 1250MCG/250ML NSS 250 ML IV PRN ×2 (09:03→23:25)
--- NOTE | 2017-07-04 09:13 | Critical Care Progress Note ---
Critical Care Progress Note Date of Service Jul 04, 2017. Attending Dr. Hernandez Subjective She remains intubated and sedated. Noted improved aeration and acidosis. Hemodynamics improved. Pressors in process of wean. TBF overloaded. Abdomen less distended. I spoke with respiratory, nursing, nutrition and pharm today. Plans in place. 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 ETT secure Lungs: exchange is adequate--no loud wheezing/rhonchi-- CVS: RRR--perfusion is adequate Skin: no new lesions Abdomen: distended---sparce bowel sounds. Extremities: no target Assessment & Plan Chronic Liver Disease/C.diff/Sepsis and Respiratory Failure-- 1. Cardio--considering very gentle diuresis--hopefully B/P will improve some with reduction in PEEP 2. Respiratory--ARDS protocol in place--moving down on support 3. GI--Vanco continues--start trickle feeding 4. Heme--Hgb 7.5 noted 5. ID--consider stop Cefepime. Prognosis is poor -- Consults & Procedures Consultants: GI: Dr Joseph Vascular: Dr Baron General Surgery: Dr. Choe Procedures: 07/01/17: left femoral TLC 07/01/17: left femoral a-line 07/01/17: intubation Data Medications: Current Inpatient Medications Medications (Trade) Dose Ordered Sig/Razia Route Start Time Stop Time Status Last Admin Dose Admin Pantoprazole Sodium 40 mg/ Syringe 10 ml @ 5 mls/min BID IV 06/27/17 09:00 07/27/17 08:59 07/04/17 08:02 5 MLS/MIN Thiamine HCl 100 mg/Syringe 10 ml @ 2 mls/min Q24H IV 06/28/17 11:00 07/28/17 10:59 07/03/17 10:31 2 MLS/MIN Folic Acid 1 mg/ Syringe 10 ml @ 5 mls/min Q24H IV 06/28/17 11:00 07/28/17 10:59 07/03/17 10:31 5 MLS/MIN Lorazepam (Ativan Inj) 1 mg ONE PRN IV 06/27/17 09:15 Ondansetron HCl (Zofran Inj) 4 mg Q6H PRN IV 06/27/17 17:46 07/27/17 17:45 Hydromorphone HCl (Dilaudid Inj) 1 mg Q3HWA PRN IV 06/29/17 09:15 07/13/17 09:14 06/30/17 20:36 1 MG Vancomycin HCl (Vancomycin Oral Soln) 250 mg Q6H PO 06/30/17 10:00 07/10/17 09:59 07/04/17 03:44 250 MG Albuterol/ Ipratropium (Duoneb) 3 ml Q4 PRN INH 07/01/17 05:30 07/31/17 05:29 Future Hold 07/01/17 10:06 3 ML Methylprednisolone Sodium Succinate 40 mg/Syringe 0.64 ml @ 1.5 mls/min Q8H IV 07/01/17 16:00 07/15/17 16:01 07/04/17 08:02 1.5 MLS/MIN Metronidazole 500 mg/Prmx 100 ml @ 100 mls/hr Q8H IV 07/01/17 10:00 07/07/17 09:59 07/04/17 01:30 100 MLS/HR Cefepime HCl (Consult) 1 ea UD PRN N/A 07/01/17 07:45 07/11/17 07:44 Norepinephrine Bitartrate 8 mg/ Dextrose 508 ml @ 0 mls/hr Q0M PRN IV 07/01/17 11:15 07/31/17 11:14 07/02/17 23:05 21.9 MLS/HR Vasopressin 50 units/Sodium Chloride 502.5 ml @ 0 mls/hr Q0M PRN IV 07/01/17 11:53 07/31/17 11:52 07/03/17 22:02 24 MLS/HR Midazolam HCl 250 ml @ 0 mls/hr Q0M IV 07/01/17 12:33 07/31/17 12:32 07/03/17 22:30 16 MLS/HR Fentanyl Citrate 250 ml @ 0 mls/hr Q0M PRN IV 07/01/17 21:15 07/15/17 21:14 07/03/17 22:40 25 MLS/HR Insulin Human Regular 250 units/ Sodium Chloride 252.5 ml @ 0 mls/hr Q24H IV 07/02/17 00:00 08/01/17 00:00 07/04/17 00:23 0.8 MLS/HR Insulin Aspart (novoLOG ASPART) SLIDING SCALE PCHS SC 07/02/17 08:00 08/01/17 07:59 Future hold Glucose (Glucose 40% Gel) 15-30 GRAMS 15 GRAMS... UD PRN PO 07/01/17 23:45 07/31/17 23:44 Glucose (Glucose Chew Tab) 4-8 Tablets 4 Tabl... UD PRN PO 07/01/17 23:45 07/31/17 23:44 Dextrose (Dextrose 50% 50ML Syringe) 25-50ML OF 50% DW IV FOR... UD PRN IV 07/01/17 23:45 07/31/17 23:44 Glucagon (Glucagon Inj) 1 mg UD PRN SQ 07/01/17 23:45 07/31/17 23:44 Albuterol (Ventolin Hfa Inhaler) 4 puffs Q4R INH 07/02/17 08:00 08/01/17 07:59 07/04/17 08:00 4 PUFFS Ipratropium [place] (Atrovent Hfa Inhaler) 4 puffs Q4R INH 07/02/17 08:00 08/01/17 07:59 07/04/17 08:00 4 PUFFS Ascorbic Acid 1500 mg/Sodium Chloride 103 ml @ 206 mls/hr Q6H IV 07/02/17 10:00 07/06/17 04:29 07/04/17 03:44 206 MLS/HR Heparin Sodium (Porcine) (Heparin Sq 5000 Unit/0.5ml) 5,000 unit Q8H SQ 07/02/17 14:00 08/01/17 13:59 07/04/17 05:29 5,000 UNIT Cefepime HCl 2000 mg/Syringe 20 ml @ 5 mls/min Q8H IV 07/02/17 17:00 07/11/17 16:59 07/04/17 08:03 5 MLS/MIN Vancomycin HCl (Vancomycin Enema) 500 mg Q6H MT 07/02/17 20:00 07/12/17 19:59 Future hold 07/04/17 08:02 500 MG Artificial Tears (Lacri-Lube Oph Oint) 1 appln Q2H PRN OPB 07/02/17 21:45 08/01/17 21:44 Methylprednisolone Sodium Succinate 40 mg/Syringe 0.64 ml @ 1.5 mls/min Q12H IV 07/16/17 04:00 07/22/17 16:01 Methylprednisolone Sodium Succinate 40 mg/Syringe 0.64 ml @ 1.5 mls/min Q24H IV 07/23/17 04:00 07/29/17 03:59 Methylprednisolone Sodium Succinate 20 mg/Syringe 0.32 ml @ 1.5 mls/min Q24H IV 07/29/17 04:00 07/30/17 04:01 Methylprednisolone Sodium Succinate 10 mg/Syringe 0.16 ml @ 1.5 mls/min Q24H IV 07/31/17 04:00 08/01/17 04:01 Vital Signs: Date Time Temp Pulse Resp B/P (MAP) Pulse Ox O2 Delivery O2 Flow Rate FiO2 07/04/17 07:54 30 07/04/17 06:00 84 26 113/71 (89) 87 124/58 07/04/17 05:00 78 24 124/76 (95) 96 07/04/17 04:30 77 24 119/73 (90) 97 07/04/17 04:01 81 23 96/70 94 07/04/17 04:00 30 07/04/17 04:00 36.9 07/04/17 04:00 91 Mechanical Ventilator 15.0 30 07/04/17 03:30 76 24 118/73 (89) 92 07/04/17 03:00 76 24 112/67 (83) 91 07/04/17 02:30 77 24 116/70 (86) 91 07/04/17 02:16 30 07/04/17 02:00 74 24 105/60 (81) 97 117/72 07/04/17 01:30 76 24 115/70 (86) 98 07/04/17 01:00 77 24 108/65 (79) 90 07/04/17 00:30 79 24 106/65 (78) 90 07/04/17 00:01 36.8 07/04/17 00:01 74 24 88/64 (78) 96 105/65 (78) 07/03/17 23:59 90 Mechanical Ventilator 30 07/03/17 23:59 30 07/03/17 23:30 75 24 105/66 (80) 96 07/03/17 23:00 78 24 106/67 (81) 95 18 22:47 78 24 90/64 (75) 95 106/67 07/03/17 22:39 40 07/03/17 22:39 84 24 86/60 (77) 94 102/65 07/03/17 22:00 76 24 (78) 95 103/65 07/03/17 21:00 72 24 (79) 95 109/64 07/03/17 20:00 96 Mechanical Ventilator 40 07/03/17 20:00 73 24 98/74 (80) 96 115/71 07/03/17 20:00 40 07/03/17 20:00 36.8 07/03/17 19:18 40 07/03/17 19:00 73 24 109/69 (85) 97 07/03/17 18:45 78 24 109/69 (82) 100 07/03/17 18:30 76 24 99/61 (74) 95 07/03/17 18:15 76 24 98/61 (73) 94 07/03/17 18:07 40 07/03/17 18:00 76 24 93/59 (70) 94 07/03/17 17:45 76 24 104/64 (77) 94 07/03/17 17:30 77 24 104/65 (78) 93 07/03/17 17:15 76 24 110/70 (83) 95 07/03/17 17:00 76 24 106/66 (79) 96 07/03/17 16:45 78 24 105/65 (78) 96 07/03/17 16:30 82 24 102/64 (77) 90 07/03/17 16:15 73 24 107/67 (80) 98 07/03/17 16:00 40 07/03/17 16:00 36.4 77 24 105/66 (79) 98 Mechanical Ventilator 40 07/03/17 16:00 Mechanical Ventilator 40 07/03/17 15:45 78 24 105/64 (78) 95 07/03/17 15:30 78 24 112/70 (84) 96 07/03/17 15:15 80 16 115/71 (86) 95 07/03/17 15:02 40 07/03/17 15:00 79 25 110/69 (83) 97 07/03/17 14:45 85 16 108/69 (82) 91 07/03/17 14:30 77 24 110/69 (83) 97 18 14:15 78 24 110/68 (82) 94 18 14:00 78 24 113/71 (85) 07/03/17 13:45 81 22 113/72 (86) 95 07/03/17 13:35 82 24 103/62 (76) 95 07/03/17 13:30 84 18 108/63 (78) 92 07/03/17 13:15 78 24 105/61 (76) 97 07/03/17 13:00 80 24 106/65 (79) 94 07/03/17 12:45 81 24 98/58 (71) 96 Mechanical Ventilator 40 07/03/17 12:30 88 24 104/63 (77) 98 Mechanical Ventilator 07/03/17 12:17 50 07/03/17 12:15 76 24 99/62 (74) 93 Mechanical Ventilator 07/03/17 12:10 40 07/03/17 12:02 73 24 99/62 (74) 98 Mechanical Ventilator 07/03/17 12:01 50 07/03/17 12:00 Mechanical Ventilator 40 07/03/17 12:00 36.4 73 24 97/61 (73) 96 Mechanical Ventilator 07/03/17 12:00 40 07/03/17 11:45 71 24 99/62 (74) 97 Mechanical Ventilator 07/03/17 11:30 73 24 97/61 (73) 97 Mechanical Ventilator 07/03/17 11:15 74 24 96/60 (72) 96 Mechanical Ventilator 07/03/17 11:00 78 26 100/63 (75) 96 Mechanical Ventilator 07/03/17 10:45 78 26 94/58 (70) 96 Mechanical Ventilator 07/03/17 10:30 79 26 96/60 (72) 95 Mechanical Ventilator 07/03/17 10:15 81 26 96/59 (71) 95 Mechanical Ventilator 07/03/17 10:00 85 26 97/59 (72) 94 Mechanical Ventilator 07/03/17 09:45 85 26 94/56 (69) 94 Mechanical Ventilator 07/03/17 09:30 87 26 96/57 (70) 94 07/03/17 09:15 88 26 95/56 (69) 93 07/03/17 09:00 90 26 100/52 (68) 94 Laboratory Results: Last 24 Hours Test 07/03/17 09:56 07/03/17 10:06 07/03/17 11:02 07/03/17 11:58 Lactic Acid Level 1.8 mmol/L Bedside Glucose (other) 127 mg/dl 116 mg/dl 106 mg/dl Test 07/03/17 12:10 07/03/17 13:30 07/03/17 14:39 07/03/17 15:43 Blood Gas Sample Site Art Line Bedside Blood Gas pH (LAB) 7.28 Bedside Blood Gas pCO2 (LAB) 47 mmHg Bedside Blood Gas pO2 (LAB) 87 mmHg Bedside Blood Gas HCO3 (LAB) 22 meq/L Bedside Blood Gas Total CO2 24 mEq/l Bedside Blood Gas Base Excess (LAB) -5.0 meq/L Bedside Blood Gas O2 Saturation 96.0 % Leonidas Test NA Oxygen Delivery Device Ventilator Bedside Oxygen Rate (breaths/min) 24 Bedside FiO2 50 % Blood Gas PEEP 16 Bedside Glucose (other) 99 mg/dl 98 mg/dl 96 mg/dl Test 07/03/17 16:13 07/03/17 16:41 07/03/17 17:40 07/03/17 18:06 Sodium Level 139 mmol/L Potassium Level 4.0 mmol/L Chloride Level 107 mmol/L Carbon Dioxide Level 22 mmol/L Anion Gap 10.0 mmol/L Blood Urea Nitrogen 18 mg/dl Creatinine 0.93 mg/dl Est Creatinine Clear Calc Drug Dose 87.0 ml/min Estimated GFR () 81.9 Estimated GFR (Non- 70.7 BUN/Creatinine Ratio 19.2 Random Glucose 104 mg/dl Calcium Level 6.4 mg/dl Bedside Glucose (other) 92 mg/dl 98 mg/dl Blood Gas Sample Site Art Line Bedside Blood Gas pH (LAB) 7.38 Bedside Blood Gas pCO2 (LAB) 36 mmHg Bedside Blood Gas pO2 (LAB) 60 mmHg Bedside Blood Gas HCO3 (LAB) 22 meq/L Bedside Blood Gas Total CO2 23 mEq/l Bedside Blood Gas Base Excess (LAB) -4.0 meq/L Bedside Blood Gas O2 Saturation 91.0 % Leonidas Test NA Oxygen Delivery Device Ventilator Bedside Oxygen Rate (breaths/min) 24 Bedside FiO2 40 % Blood Gas PEEP 14 Test 07/03/17 18:39 07/03/17 19:44 07/03/17 20:38 07/03/17 21:51 Bedside Glucose (other) 94 mg/dl 101 mg/dl 105 mg/dl 105 mg/dl Test 07/03/17 22:50 07/04/17 00:09 07/04/17 00:29 07/04/17 02:10 Bedside Glucose (other) 104 mg/dl 103 mg/dl 103 mg/dl Blood Gas Sample Site Art Line Bedside Blood Gas pH (LAB) 7.38 Bedside Blood Gas pCO2 (LAB) 39 mmHg Bedside Blood Gas pO2 (LAB) 84 mmHg Bedside Blood Gas HCO3 (LAB) 23 meq/L Bedside Blood Gas Total CO2 24 mEq/l Bedside Blood Gas Base Excess (LAB) -3.0 meq/L Bedside Blood Gas O2 Saturation 96.0 % Leonidas Test NA Oxygen Delivery Device Ventilator Bedside Oxygen Rate (breaths/min) 24 Bedside FiO2 40 % Blood Gas PEEP 14 Test 07/04/17 04:05 07/04/17 05:15 07/04/17 05:30 07/04/17 05:57 Bedside Glucose (other) 99 mg/dl 106 mg/dl White Blood Count 11.64 K/uL Red Blood Count 2.28 M/uL Hemoglobin 7.5 g/dL Hematocrit 23.3 % Mean Corpuscular Volume 102.2 fL Mean Corpuscular Hemoglobin 32.9 pg Mean Corpuscular Hemoglobin Concent 32.2 g/dl Platelet Count 80 K/uL Mean Platelet Volume 10.2 fL RDW Standard Deviation 92.9 fL RDW Coefficient of Variation 25.5 % Nucleated RBC Absolute Count (auto) 0.43 K/uL Neutrophils % (Manual) 91.0 % Lymphocytes % (Manual) 3.6 % Metamyelocytes % 1.8 % Myelocytes % 2.7 % Promyelocytes % 0.9 % Nucleated Red Blood Cells % 3.7 % Neutrophils # (Manual) 10.59 K/uL Total Absolute Neutrophils 10.59 K/uL Lymphocytes # (Manual) 0.42 K/uL Total Absolute Lymphocytes 0.42 K/uL Metamyelocytes # 0.21 K/uL Myelocytes # 0.31 K/uL Promyelocytes # 0.10 K/uL Toxic Granulation 1+ Platelet Estimate DECREASED Large Platelets 1+ Polychromasia 1+ Hypochromasia PRESENT Basophilic Stippling 1+ Anisocytosis PRESENT Pappenheimer Bodies 1+ Target Cells 1+ Prothrombin Time 15.6 SECONDS Prothromb Time International Ratio 1.5 Sodium Level 139 mmol/L Potassium Level 4.2 mmol/L Chloride Level 108 mmol/L Carbon Dioxide Level 21 mmol/L Anion Gap 10.0 mmol/L Blood Urea Nitrogen 21 mg/dl Creatinine 1.02 mg/dl Est Creatinine Clear Calc Drug Dose 80.4 ml/min Estimated GFR () 73.2 Estimated GFR (Non- 63.2 BUN/Creatinine Ratio 20.9 Random Glucose 116 mg/dl Calcium Level 6.3 mg/dl Phosphorus Level 1.6 mg/dl Magnesium Level 1.4 mg/dl Lipase 62 U/L Blood Gas Sample Site Art Line Bedside Blood Gas pH (LAB) 7.40 Bedside Blood Gas pCO2 (LAB) 33 mmHg Bedside Blood Gas pO2 (LAB) 57 mmHg Bedside Blood Gas HCO3 (LAB) 20 meq/L Bedside Blood Gas Total CO2 21 mEq/l Bedside Blood Gas Base Excess (LAB) -5.0 meq/L Bedside Blood Gas O2 Saturation 90.0 % Leonidas Test NA Oxygen Delivery Device Ventilator Bedside Oxygen Rate (breaths/min) 24 Bedside FiO2 30 % Blood Gas PEEP 14 Test 07/04/17 06:03 07/04/17 07:31 Bedside Glucose (other) 108 mg/dl 106 mg/dl
--- NOTE | 2017-07-04 09:35 | Critical Care Progress Note ---
Critical Care Progress Note Date of Service Jul 04, 2017. ICU Day ICU Day Number: [address] Bales Subjective Unable to obtain due to pt mental status or condition. Lengthy discussion with nursing. ON: Versed and Levofed weaned off at 0500. Only on Vasopressin at 0.04 u/min and fentanyl 100mcg/h. BP improved to 110s- 130s systolic. Objective General: fully sedated, resting in bed RADIATION ONCOLOGY THERAPIST: RASS score of -4 (deeply sedated; unarousable to vocal and tactile stimuli) HEENT: Scleral icterus, ET tube and OG tube Lungs: coarse breath sounds, occasional rhonchi CVS: RRR, normal S1, S2, no murmurs Skin: L femoral central venous cath and A line site C/D/I, jaundiced Abdomen: +BS (hypoactive); distended, tympanic, no reaction to palpation (note: fully sedated), severe hepatomegaly Extremities: 3+ pedal edema Assessment & Plan 52y/oF with severe sepsis secondary to C.diff/ischemic colitis. Now with persistent liver failure in the setting of alcoholic cirrhosis, respiratory failure/ARDS on mechanical ventilation (PC, transitioned to low peep and low FiO2, hoping to get off vent). Acidosis improved. Working on weaning sedation and pressor support and starting feeds as pt continues to improve. PLAN: RADIATION ONCOLOGY THERAPIST: This AM RASS score -4. Goal RASS score of -1 while on mechanical ventilation. 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 No intervention at this time. SMA/LISBET patent. Pressor support: vasopressin 0.04 units/min (stop once BP improves) PULM: In acute respiratory failure and on ARDSnet protocol. P and F ratio 190 Vent: On PC - RR 24; 30% O2; PEEP 16 (goal - low peep; low O2). Peak airway pressure 32 Pulm Toilet: alubterol 4 puffs Q4H; Atrovent 4 puffs Q4H Methylpred 40mg Q8H (2mg/kg x 14 days - on meduri protocol 28 days) RENAL/METABOLIC: renal function at baseline Cr ~ 1 Cr 1.02 this AM Stable urine output rate - 0.24 ml/kg/hr (575ml in 24 hours) Volume overloaded by +31L Consider diuresing as BP improves ID: Concern for uremia and bacteremia given ischemic and C. diff colitis and PNA. Blood culture from 07/01 no growth Fungal gram stain and culture - pending Sputum gram stain and culture - pending PNA - antibiotic regimen narrowed to Cefepime day 4 of 10 Received IV vanc x 3 days ENDO: on Insulin gtt; blood sugars in 90s-110s range Continue Insulin gtt while edematous and on pressors HEME: Worsening anemia H/H - 7.5/23.3. Plt ct 80 No evidence of bleeding Monitor CBC Consider transfusing once Hgb < 7 Electrolytes: Low Ca 6.3 (corrected 7.5 given albumin of 1.9), Mag 1.4 and Phos 1.6 Ordered phospha neutral 250 1 tab Q4H x 3 Ordered Mag Oxide 400mg Q4H x 3 Nutrition: Start trickle tube feeds per nutrition recommendations Vit C and Thiamine cocktail Folic Acid GI: will start trickle tube feeds Persistent liver failure; total bilirubin downtrended to 8.2 from 9.3 and direct bili from 8.1 to 7.8; AST stable at 54 and Alk phos 209 on 07/03 MELD score 20 (19.6% mortality risk); Child-Burns score of 10 (class C) - based on 07/03 labs Continue recurrent C.diff Colitis treatment: Vanc PO day 5; Vanc NH day 3; Flagyl IV day 4 Consulted surgery: high mortality risk for total colectomy at this time GI prophylaxis: Protonix 40mg IV BID IV access: L femoral tri-lumen central venous cath DVT Prophylaxis: Heparin 5000 units BID; SCDs PROGNOSIS: poor given high mortality in the setting of severe sepsis and multi- organ failure and poor baseline healthy Palliative care consulted Family Meeting: maintain current care plan, do not escalate care, would like to avoid surgery at this point; will reassess if condition worsens CCT: 45 minutes independent of procedures Thank you for including us in the care of this patient. Please refer to Dr. Bales's addendum for further recommendations. Consults & Procedures Consultants: GI: Dr Joseph Vascular: Dr Baron General Surgery: Dr. Choe Procedures: 03/11/18: left femoral TLC 07/01/17: left femoral a-line 07/01/17: intubation Data Medications: Current Inpatient Medications Medications (Trade) Dose Ordered Sig/Razia Route Start Time Stop Time Status Last Admin Dose Admin Pantoprazole Sodium 40 mg/ Syringe 10 ml @ 5 mls/min BID IV 06/27/17 09:00 07/27/17 08:59 07/04/17 08:02 5 MLS/MIN Thiamine HCl 100 mg/Syringe 10 ml @ 2 mls/min Q24H IV 06/28/17 11:00 07/28/17 10:59 07/03/17 10:31 2 MLS/MIN Folic Acid 1 mg/ Syringe 10 ml @ 5 mls/min Q24H IV 06/28/17 11:00 07/28/17 10:59 07/03/17 10:31 5 MLS/MIN Lorazepam (Ativan Inj) 1 mg ONE PRN IV 06/27/17 09:15 Ondansetron HCl (Zofran Inj) 4 mg Q6H PRN IV 06/27/17 17:46 07/27/17 17:45 Hydromorphone HCl (Dilaudid Inj) 1 mg Q3HWA PRN IV 06/29/17 09:15 07/13/17 09:14 06/30/17 20:36 1 MG Vancomycin HCl (Vancomycin Oral Soln) 250 mg Q6H PO 06/30/17 10:00 07/10/17 09:59 07/04/17 03:44 250 MG Albuterol/ Ipratropium (Duoneb) 3 ml Q4 PRN INH 07/01/17 05:30 07/31/17 05:29 Future Hold 07/01/17 10:06 3 ML Methylprednisolone Sodium Succinate 40 mg/Syringe 0.64 ml @ 1.5 mls/min Q8H IV 07/01/17 16:00 07/15/17 16:01 07/04/17 08:02 1.5 MLS/MIN Metronidazole 500 mg/Prmx 100 ml @ 100 mls/hr Q8H IV 07/01/17 10:00 07/07/17 09:59 07/04/17 01:30 100 MLS/HR Cefepime HCl (Consult) 1 ea UD PRN N/A 07/01/17 07:45 07/11/17 07:44 Norepinephrine Bitartrate 8 mg/ Dextrose 508 ml @ 0 mls/hr Q0M PRN IV 07/01/17 11:15 07/31/17 11:14 07/02/17 23:05 21.9 MLS/HR Vasopressin 50 units/Sodium Chloride 502.5 ml @ 0 mls/hr Q0M PRN IV 07/01/17 11:53 07/31/17 11:52 07/03/17 22:02 24 MLS/HR Midazolam HCl 250 ml @ 0 mls/hr Q0M IV 07/01/17 12:33 07/31/17 12:32 07/03/17 22:30 16 MLS/HR Fentanyl Citrate 250 ml @ 0 mls/hr Q0M PRN IV 07/01/17 21:15 07/15/17 21:14 07/04/17 09:03 20 MLS/HR Insulin Human Regular 250 units/ Sodium Chloride 252.5 ml @ 0 mls/hr Q24H IV 07/02/17 00:00 08/01/17 00:00 07/04/17 00:23 0.8 MLS/HR Insulin Aspart (novoLOG ASPART) SL[facility]ING [facility] 07/02/17 08:00 08/01/17 07:59 Future hold Glucose (Glucose 40% Gel) 15-30 GRAMS 15 GRAMS... UD PRN PO 07/01/17 23:45 07/31/17 23:44 Glucose (Glucose Chew Tab) 4-8 Tablets 4 Tabl... UD PRN PO 07/01/17 23:45 07/31/17 23:44 Dextrose (Dextrose 50% 50ML Syringe) 25-50ML OF 50% DW IV FOR... UD PRN IV 07/01/17 23:45 07/31/17 23:44 Glucagon (Glucagon Inj) 1 mg UD PRN SQ 07/01/17 23:45 07/31/17 23:44 Albuterol (Ventolin Hfa Inhaler) 4 puffs Q4R INH 07/02/17 08:00 08/01/17 07:59 07/04/17 08:00 4 PUFFS Ipratropium [place] (Atrovent Hfa Inhaler) 4 puffs Q4R INH 07/02/17 08:00 08/01/17 07:59 07/04/17 08:00 4 PUFFS Ascorbic Acid 1500 mg/Sodium Chloride 103 ml @ 206 mls/hr Q6H IV 07/02/17 10:00 07/06/17 04:29 07/04/17 03:44 206 MLS/HR Heparin Sodium (Porcine) (Heparin Sq 5000 Unit/0.5ml) 5,000 unit Q8H SQ 07/02/17 14:00 08/01/17 13:59 07/04/17 05:29 5,000 UNIT Cefepime HCl 2000 mg/Syringe 20 ml @ 5 mls/min Q8H IV 07/02/17 17:00 07/11/17 16:59 07/04/17 08:03 5 MLS/MIN Vancomycin HCl (Vancomycin Enema) 500 mg Q6H NH 07/02/17 20:00 07/12/17 19:59 Future hold 07/04/17 08:02 500 MG Artificial Tears (Lacri-Lube Oph Oint) 1 appln Q2H PRN OPB 07/02/17 21:45 08/01/17 21:44 Methylprednisolone Sodium Succinate 40 mg/Syringe 0.64 ml @ 1.5 mls/min Q12H IV 07/16/17 04:00 07/22/17 16:01 Methylprednisolone Sodium Succinate 40 mg/Syringe 0.64 ml @ 1.5 mls/min Q24H IV 07/23/17 04:00 07/29/17 03:59 Methylprednisolone Sodium Succinate 20 mg/Syringe 0.32 ml @ 1.5 mls/min Q24H IV 07/29/17 04:00 07/30/17 04:01 Methylprednisolone Sodium Succinate 10 mg/Syringe 0.16 ml @ 1.5 mls/min Q24H IV 07/31/17 04:00 08/01/17 04:01 I & O: 24 hours: Is: 3839cc; Os: 845 UOP 575cc rate= 0.24 cc/kg/hr Total net positive 31L. BM x 3 Vital Signs: Date Time Temp Pulse Resp B/P (MAP) Pulse Ox O2 Delivery O2 Flow Rate FiO2 07/04/17 07:54 30 07/04/17 06:00 84 26 113/71 (89) 87 124/58 3/14/18 05:00 78 24 124/76 (95) 96 07/04/17 04:30 77 24 119/73 (90) 97 07/04/17 04:01 81 23 96/70 94 07/04/17 04:00 30 07/04/17 04:00 36.9 07/04/17 04:00 91 Mechanical Ventilator 15.0 30 07/04/17 03:30 76 24 118/73 (89) 92 07/04/17 03:00 76 24 112/67 (83) 91 07/04/17 02:30 77 24 116/70 (86) 91 07/04/17 02:16 30 07/04/17 02:00 74 24 105/60 (81) 97 117/72 07/04/17 01:30 76 24 115/70 (86) 98 07/04/17 01:00 77 24 108/65 (79) 90 07/04/17 00:30 79 24 106/65 (78) 90 07/04/17 00:01 36.8 07/04/17 00:01 74 24 88/64 (78) 96 105/65 (78) 07/03/17 23:59 90 Mechanical Ventilator 30 07/03/17 23:59 30 07/03/17 23:30 75 24 105/66 (80) 96 07/03/17 23:00 78 24 106/67 (81) 95 18 22:47 78 24 90/64 (75) 95 106/67 07/03/17 22:39 40 07/03/17 22:39 84 24 86/60 (77) 94 102/65 07/03/17 22:00 76 24 (78) 95 103/65 07/03/17 21:00 72 24 (79) 95 109/64 07/03/17 20:00 96 Mechanical Ventilator 40 07/03/17 20:00 73 24 98/74 (80) 96 115/71 07/03/17 20:00 40 07/03/17 20:00 36.8 07/03/17 19:18 40 07/03/17 19:00 73 24 109/69 (85) 97 07/03/17 18:45 78 24 109/69 (82) 100 07/03/17 18:30 76 24 99/61 (74) 95 18 18:15 76 24 98/61 (73) 94 18 18:07 40 18 18:00 76 24 93/59 (70) 94 18 17:45 76 24 104/64 (77) 94 18 17:30 77 24 104/65 (78) 93 18 17:15 76 24 110/70 (83) 95 18 17:00 76 24 106/66 (79) 96 18 16:45 78 24 105/65 (78) 96 18 16:30 82 24 102/64 (77) 90 18 16:15 73 24 107/67 (80) 98 07/03/17 16:00 40 07/03/17 16:00 36.4 77 24 105/66 (79) 98 Mechanical Ventilator 40 07/03/17 16:00 Mechanical Ventilator 40 07/03/17 15:45 78 24 105/64 (78) 95 07/03/17 15:30 78 24 112/70 (84) 96 07/03/17 15:15 80 16 115/71 (86) 95 07/03/17 15:02 40 07/03/17 15:00 79 25 110/69 (83) 97 07/03/17 14:45 85 16 108/69 (82) 91 07/03/17 14:30 77 24 110/69 (83) 97 07/03/17 14:15 78 24 110/68 (82) 94 07/03/17 14:00 78 24 113/71 (85) 07/03/17 13:45 81 22 113/72 (86) 95 07/03/17 13:35 82 24 103/62 (76) 95 07/03/17 13:30 84 18 108/63 (78) 92 07/03/17 13:15 78 24 105/61 (76) 97 07/03/17 13:00 80 24 106/65 (79) 94 18 12:45 81 24 98/58 (71) 96 Mechanical Ventilator 40 07/03/17 12:30 88 24 104/63 (77) 98 Mechanical Ventilator 07/03/17 12:17 50 07/03/17 12:15 76 24 99/62 (74) 93 Mechanical Ventilator 3/13/18 12:10 40 07/03/17 12:02 73 24 99/62 (74) 98 Mechanical Ventilator 07/03/17 12:01 50 07/03/17 12:00 Mechanical Ventilator 40 07/03/17 12:00 36.4 73 24 97/61 (73) 96 Mechanical Ventilator 07/03/17 12:00 40 07/03/17 11:45 71 24 99/62 (74) 97 Mechanical Ventilator 07/03/17 11:30 73 24 97/61 (73) 97 Mechanical Ventilator 07/03/17 11:15 74 24 96/60 (72) 96 Mechanical Ventilator 07/03/17 11:00 78 26 100/63 (75) 96 Mechanical Ventilator 07/03/17 10:45 78 26 94/58 (70) 96 Mechanical Ventilator 07/03/17 10:30 79 26 96/60 (72) 95 Mechanical Ventilator 07/03/17 10:15 81 26 96/59 (71) 95 Mechanical Ventilator 07/03/17 10:00 85 26 97/59 (72) 94 Mechanical Ventilator 07/03/17 09:45 85 26 94/56 (69) 94 Mechanical Ventilator 07/03/17 09:30 87 26 96/57 (70) 94 07/03/17 09:15 88 26 95/56 (69) 93 Laboratory Results: Last 24 Hours Test 07/03/17 09:56 07/03/17 10:06 07/03/17 11:02 07/03/17 11:58 Lactic Acid Level 1.8 mmol/L Bedside Glucose (other) 127 mg/dl 116 mg/dl 106 mg/dl Test 07/03/17 12:10 07/03/17 13:30 07/03/17 14:39 07/03/17 15:43 Blood Gas Sample Site Art Line Bedside Blood Gas pH (LAB) 7.28 Bedside Blood Gas pCO2 (LAB) 47 mmHg Bedside Blood Gas pO2 (LAB) 87 mmHg Bedside Blood Gas HCO3 (LAB) 22 meq/L Bedside Blood Gas Total CO2 24 mEq/l Bedside Blood Gas Base Excess (LAB) -5.0 meq/L Bedside Blood Gas O2 Saturation 96.0 % Leonidas Test NA Oxygen Delivery Device Ventilator Bedside Oxygen Rate (breaths/min) 24 Bedside FiO2 50 % Blood Gas PEEP 16 Bedside Glucose (other) 99 mg/dl 98 mg/dl 96 mg/dl Test 07/03/17 16:13 07/03/17 16:41 07/03/17 17:40 07/03/17 18:06 Sodium Level 139 mmol/L Potassium Level 4.0 mmol/L Chloride Level 107 mmol/L Carbon Dioxide Level 22 mmol/L Anion Gap 10.0 mmol/L Blood Urea Nitrogen 18 mg/dl Creatinine 0.93 mg/dl Est Creatinine Clear Calc Drug Dose 87.0 ml/min Estimated GFR () 81.9 Estimated GFR (Non- 70.7 BUN/Creatinine Ratio 19.2 Random Glucose 104 mg/dl Calcium Level 6.4 mg/dl Bedside Glucose (other) 92 mg/dl 98 mg/dl Blood Gas Sample Site Art Line Bedside Blood Gas pH (LAB) 7.38 Bedside Blood Gas pCO2 (LAB) 36 mmHg Bedside Blood Gas pO2 (LAB) 60 mmHg Bedside Blood Gas HCO3 (LAB) 22 meq/L Bedside Blood Gas Total CO2 23 mEq/l Bedside Blood Gas Base Excess (LAB) -4.0 meq/L Bedside Blood Gas O2 Saturation 91.0 % Leonidas Test NA Oxygen Delivery Device Ventilator Bedside Oxygen Rate (breaths/min) 24 Bedside FiO2 40 % Blood Gas PEEP 14 Test 07/03/17 18:39 07/03/17 19:44 07/03/17 20:38 07/03/17 21:51 Bedside Glucose (other) 94 mg/dl 101 mg/dl 105 mg/dl 105 mg/dl Test 07/03/17 22:50 07/04/17 00:09 07/04/17 00:29 07/04/17 02:10 Bedside Glucose (other) 104 mg/dl 103 mg/dl 103 mg/dl Blood Gas Sample Site Art Line Bedside Blood Gas pH (LAB) 7.38 Bedside Blood Gas pCO2 (LAB) 39 mmHg Bedside Blood Gas pO2 (LAB) 84 mmHg Bedside Blood Gas HCO3 (LAB) 23 meq/L Bedside Blood Gas Total CO2 24 mEq/l Bedside Blood Gas Base Excess (LAB) -3.0 meq/L Bedside Blood Gas O2 Saturation 96.0 % Leonidas Test NA Oxygen Delivery Device Ventilator Bedside Oxygen Rate (breaths/min) 24 Bedside FiO2 40 % Blood Gas PEEP 14 Test 07/04/17 04:05 07/04/17 05:15 07/04/17 05:30 07/04/17 05:57 Bedside Glucose (other) 99 mg/dl 106 mg/dl White Blood Count 11.64 K/uL Red Blood Count 2.28 M/uL Hemoglobin 7.5 g/dL Hematocrit 23.3 % Mean Corpuscular Volume 102.2 fL Mean Corpuscular Hemoglobin 32.9 pg Mean Corpuscular Hemoglobin Concent 32.2 g/dl Platelet Count 80 K/uL Mean Platelet Volume 10.2 fL RDW Standard Deviation 92.9 fL RDW Coefficient of Variation 25.5 % Nucleated RBC Absolute Count (auto) 0.43 K/uL Neutrophils % (Manual) 91.0 % Lymphocytes % (Manual) 3.6 % Metamyelocytes % 1.8 % Myelocytes % 2.7 % Promyelocytes % 0.9 % Nucleated Red Blood Cells % 3.7 % Neutrophils # (Manual) 10.59 K/uL Total Absolute Neutrophils 10.59 K/uL Lymphocytes # (Manual) 0.42 K/uL Total Absolute Lymphocytes 0.42 K/uL Metamyelocytes # 0.21 K/uL Myelocytes # 0.31 K/uL Promyelocytes # 0.10 K/uL Toxic Granulation 1+ Platelet Estimate DECREASED Large Platelets 1+ Polychromasia 1+ Hypochromasia PRESENT Basophilic Stippling 1+ Anisocytosis PRESENT Pappenheimer Bodies 1+ Target Cells 1+ Prothrombin Time 15.6 SECONDS Prothromb Time International Ratio 1.5 Sodium Level 139 mmol/L Potassium Level 4.2 mmol/L Chloride Level 108 mmol/L Carbon Dioxide Level 21 mmol/L Anion Gap 10.0 mmol/L Blood Urea Nitrogen 21 mg/dl Creatinine 1.02 mg/dl Est Creatinine Clear Calc Drug Dose 80.4 ml/min Estimated GFR () 73.2 Estimated GFR (Non- 63.2 BUN/Creatinine Ratio 20.9 Random Glucose 116 mg/dl Calcium Level 6.3 mg/dl Phosphorus Level 1.6 mg/dl Magnesium Level 1.4 mg/dl Lipase 62 U/L Blood Gas Sample Site Art Line Bedside Blood Gas pH (LAB) 7.40 Bedside Blood Gas pCO2 (LAB) 33 mmHg Bedside Blood Gas pO2 (LAB) 57 mmHg Bedside Blood Gas HCO3 (LAB) 20 meq/L Bedside Blood Gas Total CO2 21 mEq/l Bedside Blood Gas Base Excess (LAB) -5.0 meq/L Bedside Blood Gas O2 Saturation 90.0 % Leonidas Test NA Oxygen Delivery Device Ventilator Bedside Oxygen Rate (breaths/min) 24 Bedside FiO2 30 % Blood Gas PEEP 14 Test 07/04/17 06:03 07/04/17 07:31 Bedside Glucose (other) 108 mg/dl 106 mg/dl
[2017-07-04] MEDS: MAGNESIUM OXIDE 400 MG TAB PO SCH ×3 (10:48→16:50)
[2017-07-04] MEDS: FoLIC ACID INJ 1 MG in SYRINGE 9.8 ML IV SCH (10:48)
[2017-07-04] MEDS: THIAMINE HCL INJ 100 MG in SYRINGE 9 ML IV SCH (10:48)
[2017-07-04] MEDS: POT PHOSPHATE MONOBASIC W/ SOD TAB PO SCH ×3 (10:48→16:50)
[2017-07-04] MEDS: PEPTAMEN 1.5 CAL 1000ML BAG OG PRN (13:49)
[2017-07-04 16:17] LABS: HEMATOCRIT 23.8 % (37-47); HEMOGLOBIN 7.8 g/dL (12.0-16.0); MEAN CORPUSCULAR HEMOGLOBIN 33.8 pg (25-34); MEAN CORPUSCULAR HGB CONC 32.8 g/dl (32-36); NUCLEATED RED BLOOD CELL ABS 0.45 K/uL (0-0); RED CELL DISTRIBUTION WIDTH CV 25.6 % (11.5-14.5); RED CELL DISTRIBUTION WIDTH SD 94.7 fL (36.4-46.3)
[2017-07-04 16:19] LABS: MEAN PLATELET VOLUME 11.3 fL (7.4-10.4); PLATELET COUNT 80 K/uL (130-400)
[2017-07-04 16:37] LABS: CALCIUM 6.5 mg/dl (8.5-10.1); CREATININE 1.08 mg/dl (0.60-1.20); POTASSIUM 4.1 mmol/L (3.5-5.1)
[2017-07-04 16:55] LABS: BASO % 0.6 %; BASO ABS # 0.08 K/uL (0-0.2); IG# 0.91 K/uL (0.00-0.02); LYMPH % 7.2 %; LYMPH ABS # 0.96 K/uL (1.2-3.4); MONO % 3.5 %; MONO ABS # 0.47 K/uL (0.11-0.59); NEUT % 81.9 %; NEUT ABS # 10.98 K/uL (1.4-6.5)
--- NOTE | 2017-07-04 22:49 | Progress Note ---
Subjective Date of Service: Jul 04, 2017. Subjective Pt evaluation today including: conversation w/ patient, physical exam Patient remains intubated and sedated. Family was at bedside and they were updated. Unable to obtain ROS. Problem List Medical Problems: (1) Abdominal pain Status: Acute (2) Acute pancreatitis Status: Acute (3) Alcohol abuse Status: Acute (4) Alcohol intoxication Status: Acute (5) Anemia Status: Acute (6) Anemia Status: Acute (7) Biliary obstruction Status: Acute (8) C. difficile colitis Status: Acute (9) C. difficile diarrhea Status: Acute (10) Chest pain Status: Acute (11) Contusion of multiple sites Status: Acute (12) Dehydration Status: Acute (13) Dehydration Status: Acute (14) Encounter for smoking cessation counseling Status: Acute (15) Epigastric abdominal pain Status: Acute (16) Fall Status: Acute (17) Fall due to slipping on ice or snow Status: Acute (18) Fracture of left distal radius Status: Acute (19) Hypocalcemia Status: Acute (20) Hypomagnesemia Status: Acute (21) Hypomagnesemia Status: Acute (22) Hypotension Status: Acute (23) Lactic acidosis Status: Acute (24) Liver failure Status: Acute (25) Pancreatitis Status: Acute Review of Systems All Other Systems: Reviewed and Negative Objective Vital Signs Date Time Temp Pulse Resp B/P (MAP) Pulse Ox O2 Delivery O2 Flow Rate FiO2 07/04/17 22:01 93 16 101/63 (93) 92 121/75 (92) 07/04/17 21:30 90 16 112/69 (85) 91 07/04/17 21:00 91 16 115/72 (89) 90 07/04/17 20:30 86 16 107/66 (81) 91 07/04/17 20:00 37.1 07/04/17 20:00 Mechanical Ventilator 35 07/04/17 20:00 86 16 96/66 (74) 92 112/69 07/04/17 20:00 35 07/04/17 19:30 85 16 109/68 (83) 92 07/04/17 19:00 84 16 109/67 (83) 93 07/04/17 18:55 35 07/04/17 18:45 35 07/04/17 18:00 86 15 105/61 (76) 88 Mechanical Ventilator 35 07/04/17 17:56 35 3/14/18 17:00 87 25 107/67 (80) 93 35 18 16:00 35 07/04/17 16:00 36.7 87 25 107/67 (80) 90 Mechanical Ventilator 35 97/64 (75) 07/04/17 16:00 90 Mechanical Ventilator 35 07/04/17 15:34 35 18 15:00 86 25 112/70 (84) 91 07/04/17 14:00 85 24 120/76 (91) 07/04/17 13:59 35 07/04/17 12:01 78 19 103/72 (92) 93 120/75 07/04/17 12:00 35 07/04/17 12:00 92 Mechanical Ventilator 35 07/04/17 11:01 30 07/04/17 10:01 79 18 95/73 (87) 88 116/71 07/04/17 09:00 80 24 110/72 88 07/04/17 08:01 36.9 82 24 95/65 (89) 90 116/74 07/04/17 08:00 90 Mechanical Ventilator 30 07/04/17 08:00 Mechanical Ventilator 30 07/04/17 08:00 30 07/04/17 08:00 36.9 07/04/17 07:54 30 07/04/17 07:00 82 24 (90) 90 120/74 07/04/17 06:00 84 26 113/71 (89) 87 124/58 07/04/17 05:00 78 24 124/76 (95) 96 07/04/17 04:30 77 24 119/73 (90) 97 07/04/17 04:01 81 23 96/70 94 07/04/17 04:00 30 07/04/17 04:00 36.9 07/04/17 04:00 91 Mechanical Ventilator 15.0 30 07/04/17 03:30 76 24 118/73 (89) 92 07/04/17 03:00 76 24 112/67 (83) 91 07/04/17 02:30 77 24 116/70 (86) 91 07/04/17 02:16 30 07/04/17 02:00 74 24 105/60 (81) 97 117/72 07/04/17 01:30 76 24 115/70 (86) 98 07/04/17 01:00 77 24 108/65 (79) 90 07/04/17 00:30 79 24 106/65 (78) 90 07/04/17 00:01 36.8 07/04/17 00:01 74 24 88/64 (78) 96 105/65 (78) 07/03/17 23:59 90 Mechanical Ventilator 30 07/03/17 23:59 30 07/03/17 23:30 75 24 105/66 (80) 96 07/03/17 23:00 78 24 106/67 (81) 95 Physical Exam Comments: General Appearance: no apparent distress, intubated Neck: supple, no adenopathy, no JVD, trachea midline Respiratory/Chest: chest non-tender, no respiratory distress, no accessory muscle use, improved Cardiovascular: regular rate, rhythm, no edema, no gallop, no JVD, no murmur Abdomen: no organomegaly, + abnormal bowel sounds (hypoactive), + distended, softer than yesterday Extremities: normal range of motion, non-tender, normal inspection, no pedal edema, no calf tenderness, pelvis stable Neurologic/Psychiatric: film mounter II-XII nml as tested, + pertinent finding (sedated on Fentanyl) Skin: normal color, warm/dry, no rash Laboratory Results Last 24 Hours Test 07/03/17 22:50 07/04/17 00:09 07/04/17 00:29 07/04/17 02:10 Bedside Glucose (other) 104 mg/dl 103 mg/dl 103 mg/dl Blood Gas Sample Site Art Line Bedside Blood Gas pH (LAB) 7.38 Bedside Blood Gas pCO2 (LAB) 39 mmHg Bedside Blood Gas pO2 (LAB) 84 mmHg Bedside Blood Gas HCO3 (LAB) 23 meq/L Bedside Blood Gas Total CO2 24 mEq/l Bedside Blood Gas Base Excess (LAB) -3.0 meq/L Bedside Blood Gas O2 Saturation 96.0 % Leonidas Test NA Oxygen Delivery Device Ventilator Bedside Oxygen Rate (breaths/min) 24 Bedside FiO2 40 % Blood Gas PEEP 14 Test 07/04/17 04:05 07/04/17 05:15 07/04/17 05:30 07/04/17 05:57 Bedside Glucose (other) 99 mg/dl 106 mg/dl White Blood Count 11.64 K/uL Red Blood Count 2.28 M/uL Hemoglobin 7.5 g/dL Hematocrit 23.3 % Mean Corpuscular Volume 102.2 fL Mean Corpuscular Hemoglobin 32.9 pg Mean Corpuscular Hemoglobin Concent 32.2 g/dl Platelet Count 80 K/uL Mean Platelet Volume 10.2 fL RDW Standard Deviation 92.9 fL RDW Coefficient of Variation 25.5 % Nucleated RBC Absolute Count (auto) 0.43 K/uL Neutrophils % (Manual) 91.0 % Lymphocytes % (Manual) 3.6 % Metamyelocytes % 1.8 % Myelocytes % 2.7 % Promyelocytes % 0.9 % Nucleated Red Blood Cells % 3.7 % Neutrophils # (Manual) 10.59 K/uL Total Absolute Neutrophils 10.59 K/uL Lymphocytes # (Manual) 0.42 K/uL Total Absolute Lymphocytes 0.42 K/uL Metamyelocytes # 0.21 K/uL Myelocytes # 0.31 K/uL Promyelocytes # 0.10 K/uL Blood Smear Review Toxic Granulation 1+ Platelet Estimate DECREASED Large Platelets 1+ Polychromasia 1+ Hypochromasia PRESENT Basophilic Stippling 1+ Anisocytosis PRESENT Pappenheimer Bodies 1+ Target Cells 1+ Prothrombin Time 15.6 SECONDS Prothromb Time International Ratio 1.5 Sodium Level 139 mmol/L Potassium Level 4.2 mmol/L Chloride Level 108 mmol/L Carbon Dioxide Level 21 mmol/L Anion Gap 10.0 mmol/L Blood Urea Nitrogen 21 mg/dl Creatinine 1.02 mg/dl Est Creatinine Clear Calc Drug Dose 80.4 ml/min Estimated GFR () 73.2 Estimated GFR (Non- 63.2 BUN/Creatinine Ratio 20.9 Random Glucose 116 mg/dl Calcium Level 6.3 mg/dl Phosphorus Level 1.6 mg/dl Magnesium Level 1.4 mg/dl Lipase 62 U/L Blood Gas Sample Site Art Line Bedside Blood Gas pH (LAB) 7.40 Bedside Blood Gas pCO2 (LAB) 33 mmHg Bedside Blood Gas pO2 (LAB) 57 mmHg Bedside Blood Gas HCO3 (LAB) 20 meq/L Bedside Blood Gas Total CO2 21 mEq/l Bedside Blood Gas Base Excess (LAB) -5.0 meq/L Bedside Blood Gas O2 Saturation 90.0 % Leonidas Test NA Oxygen Delivery Device Ventilator Bedside Oxygen Rate (breaths/min) 24 Bedside FiO2 30 % Blood Gas PEEP 14 Test 07/04/17 06:03 07/04/17 07:31 07/04/17 09:37 07/04/17 11:33 Bedside Glucose (other) 108 mg/dl 106 mg/dl 103 mg/dl 102 mg/dl Test 07/04/17 13:24 07/04/17 15:42 07/04/17 16:03 07/04/17 17:09 Bedside Glucose (other) 101 mg/dl 97 mg/dl 94 mg/dl White Blood Count 13.40 K/uL Red Blood Count 2.31 M/uL Hemoglobin 7.8 g/dL Hematocrit 23.8 % Mean Corpuscular Volume 103.0 fL Mean Corpuscular Hemoglobin 33.8 pg Mean Corpuscular Hemoglobin Concent 32.8 g/dl Platelet Count 80 K/uL Mean Platelet Volume 11.3 fL Neutrophils (%) (Auto) 81.9 % Lymphocytes (%) (Auto) 7.2 % Monocytes (%) (Auto) 3.5 % Eosinophils (%) (Auto) 0.0 % Basophils (%) (Auto) 0.6 % Neutrophils # (Auto) 10.98 K/uL Lymphocytes # (Auto) 0.96 K/uL Monocytes # (Auto) 0.47 K/uL Eosinophils # (Auto) 0.00 K/uL Basophils # (Auto) 0.08 K/uL RDW Standard Deviation 94.7 fL RDW Coefficient of Variation 25.6 % Immature Granulocyte % (Auto) 6.8 % Immature Granulocyte # (Auto) 0.91 K/uL Nucleated RBC Absolute Count (auto) 0.45 K/uL Nucleated Red Blood Cells % 3.3 % Toxic Granulation 1+ Toxic Vacuolation 1+ Large Platelets 1+ Polychromasia 1+ Anisocytosis PRESENT Pappenheimer Bodies 1+ Target Cells 1+ Sodium Level 140 mmol/L Potassium Level 4.1 mmol/L Chloride Level 109 mmol/L Carbon Dioxide Level 22 mmol/L Anion Gap 9.0 mmol/L Blood Urea Nitrogen 24 mg/dl Creatinine 1.08 mg/dl Est Creatinine Clear Calc Drug Dose 76.0 ml/min Estimated GFR () 68.4 Estimated GFR (Non- 59.0 BUN/Creatinine Ratio 22.3 Random Glucose 110 mg/dl Calcium Level 6.5 mg/dl Heparin-PF4 Antibody Screen NEG Test 07/04/17 18:06 07/04/17 19:36 07/04/17 20:33 07/04/17 21:36 Bedside Glucose (other) 96 mg/dl Bedside Glucose 135 mg/dl 132 mg/dl 129 mg/dl Assessment and Plan 52 yo female with history of alcohol abuse, cirrhosis, c diff colitis who presented with weakness, hypotension, bloody diarrhea, KEVIN, acidosis - Septic shock: suspected source is pneumonia, likely aspiration vs colitis Source of sepsis: unclear Surgery is recommending possible total colectomy, however given her critical state and unclear that she may have more of a respiratory issue, pressors, bicarb drip. This procedure is being held for now. In regards to colitis, less distended abdomen. IV fluids, pressor support with Levophed, Vasopressin, poor UO follow up blood cultures drawn today continue IV Flagyl, Cefepime. Continue WA and PO Vanco. Held IV vanco Off pressors Start trickle feeding - Acute hypoxic respiratory failure, likely from ARDS intubated, ventilator support management per ICU ABG had decreased o2 of 60%. 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 MELD score is 20 - Lactic acidosis: likely from shock, monitor LA, fluid support - KEVIN: Cr is improved but urine output is not adequate 800ml out today despite 2600cc input via IV continue to monitor Cr q4, follow UO in gil metabolic acidosis appears to be improving. - Anemia: HB improved to above 8 stable. will continue to monitor h/o slow GI bleeding for weeks per family transfused 2 units PRBC initially, responded well, no further signs of bleeding - Hypokalemia: resolved, continue to monitor - Hypophosphatemia: 1.6 today, replace - Hypomagnesemia: 1.4 today, replace - Alcoholism, last drink was two days prior to admission place on withdrawal protocol, had some tremors on admission, resolved for time being thiamine and folate daily no signs of DT's - Hyperbilirubinemia: hepatic steatosis on imaging, likely developing cirrhosis with alcoholism history supportive care, continue to monitor, bili down to 8, INR is 1.5 mother will be decision maker, change to Level 5 DNR if heart would stop discussed held with RN and hand clipper present Continued [facility] stay due to: multiple IV medications needed Discharge planning: uncertain
[2017-07-05] VITALS (35 sets, daily range): BP systolic 104–144; BP diastolic 54–87; PULSE 91–120; TEMP 36.7–37.4; O2SAT 89–97
[2017-07-05] MEDS: INSULIN REGULAR 250 UNITS in SODIUM CHLORIDE 0.9% 250ML 250 ML IV SCH (00:27)
[2017-07-05] MEDS: METHYLPREDNISOLONE IV 40 MG in SYRINGE 0 ML IV SCH ×3 (00:28→20:32)
[2017-07-05] MEDS: CEFEPIME IV 2,000 MG in SYRINGE 7.5 ML IV SCH ×3 (00:29→17:01)
[2017-07-05] MEDS: METRONIDAZOLE / NSS 500 MG in PREMIXED NSS 100 ML IV SCH ×3 (02:14→17:51)
[2017-07-05] MEDS: VANCOMYCIN ENEMA PR SCH ×4 (02:14→20:22)
[2017-07-05] MEDS ORDERED: RAPID SEQUENCE INDUCTION BAG ONE (03:54)
[2017-07-05] MEDS: VANCOMYCIN HCL 250 MG/5 ML SOLN PO SCH ×4 (04:00→20:32)
[2017-07-05] MEDS: IPRATROPIUM BROMIDE HFA INHALER INH SCH ×6 (04:20→23:38)
[2017-07-05] MEDS: ALBUTEROL HFA 8 GM INHALER INH SCH ×6 (04:20→23:38)
--- NOTE | 2017-07-05 04:33 | Progress Note ---
Progress Note Date of Service Jul 05, 2017. Progress Note I was asked by ICU PAConnieC to evaluate the patient for reintubation following ETT cuff rupture. Patient is 52 year old F with ARDS secondary to severe sepsis and septic shock. On initial evaluation, large leak present in circuit. Patient breathing out of sync with ventilator. ETT balloon unable to hold volume. I gave her 50mg of rocuronium and 100mcg of fentanyl and preoxygenated with 100% FiO2. This improved todal volumes from 120cc to 450cc, but large leak still present. Copious thick yellow secretions suctioned from oropharynx. DL performed with ETT still in place. Grade 2 view revealed. A tube exchanger was placed and the old ett was removed and replaced with a new 8.0 ETT under direct visualization. CO2 and bilateral breath sounds confirmed, withdrawn to 24cm at the lip. CXR ordered. Patient is unchanged hemodynamically. Oxygen saturation never below 87% during procedure. Care transfered back to ICU staff.
--- NOTE | 2017-07-05 05:00 | Critical Care Progress Note ---
Critical Care Progress Note Date of Service Jul 05, 2017. Critical Care Progress Note Ms. Harrison's ET tube balloon was found to no longer hold air. Her minute ventilation fell from around 11L/min to 5-6L/min in addition to her saturation dropping. She required 100% FIO2 to bring her back to adequate saturations. I phoned Dr. Robin who happened to be in-route for another case and arrive within minutes. I obtained a tube exchanger for him and she was aggressively suctioned. Tube feeds had previously been shut off. Dr. Robin did administer 50mg of Rocuronium and 100mcg of Fentanyl prior to placing a new 8.0 tube over the tube exchanger. Pts continuous infusion was increased from 50 to 100mcg afterwards. Prior ET tube inspected per respiratory balloon was defected and would not hold air. Plan: * Pts PEEP was returned to 8 and FIO2 is 60%. * Will decrease FIO2 as tolerated. Currently saturating at 90% with End Tidal CO2 in the mid to low 30's. * CXR was taken to confirm newly placed ET Tube. OG tube was left in place during exchange. * Tube feeds remain off at this time * As I expect it to take longer for pt to metabolize the NMB, CPAP was canceled with respiratory for AM Critical Care time: 35mins This time is exclusive of all separately billable procedures.
[2017-07-05] MEDS: ASCORBIC ACID INJ 1,500 MG in NSS 100 ML IV SCH ×4 (05:16→21:15)
[2017-07-05] MEDS: HEPARIN SOD 5000 UNIT/0.5 ML CARP SQ SCH ×3 (05:17→21:16)
[2017-07-05 06:38] LABS: CALCIUM 6.6 mg/dl (8.5-10.1); CREATININE 1.25 mg/dl (0.60-1.20); PHOSPHORUS 2.6 mg/dl (2.5-4.9)
--- NOTE | 2017-07-05 07:01 | DIAGNOSTIC IMAGING REPORT ---
CHEST ONE VIEW PORTABLE CLINICAL HISTORY: et tube placement/ OG placement tube position COMPARISON STUDY: 07/04/2017 FINDINGS: Endotracheal tube 3.8 cm both maria del rosario. Nasogastric tube within the mid stomach. Bibasilar parenchymal infiltrative change at with a small left effusion unaltered. IMPRESSION: Endotracheal tube 3.8 cm both maria del rosario. Nasogastric tube within the stomach. The above report was generated using voice recognition software. It may contain grammatical, syntax or spelling errors. Electronically signed by: Bart Kay M.D. 07/05/2017 7:00 AM Dictated Date/Time: 07/05/2017 6:59 AM
[2017-07-05 07:05] LABS: HEMATOCRIT 29.1 % (37-47); HEMOGLOBIN 9.2 g/dL (12.0-16.0); MEAN CELL VOLUME 105.8 fL (80-100); MEAN CORPUSCULAR HEMOGLOBIN 33.5 pg (25-34); MEAN CORPUSCULAR HGB CONC 31.6 g/dl (32-36); MEAN PLATELET VOLUME 12.2 fL (7.4-10.4); NUCLEATED RED BLOOD CELL ABS 0.98 K/uL (0-0); PLATELET COUNT 113 K/uL (130-400); RED CELL DISTRIBUTION WIDTH CV 26.2 % (11.5-14.5); RED CELL DISTRIBUTION WIDTH SD 97.2 fL (36.4-46.3); WHITE BLOOD COUNT 24.48 K/uL (4.8-10.8)
[2017-07-05 07:06] LABS: BASO % 0.9 %; BASO ABS # 0.21 K/uL (0-0.2); EOS ABS # 0.01 K/uL (0-0.5); IG# 2.19 K/uL (0.00-0.02); LYMPH ABS # 1.97 K/uL (1.2-3.4); MONO ABS # 0.73 K/uL (0.11-0.59); NEUT % 79.2 %; NEUT ABS # 19.37 K/uL (1.4-6.5)
[2017-07-05] MEDS: INSULIN ASPART 100 UNITS/ML 3 ML PEN SC SCH (08:00)
[2017-07-05] MEDS ORDERED: ROCURONIUM BROMIDE 10 MG/ML 10 ML VIAL IV ONE (08:13)
[2017-07-05] MEDS ORDERED: FENTANYL CITRATE INJ 50 MCG/1 ML 2 ML VIAL IV ONE (08:13)
[2017-07-05] MEDS: MAGNESIUM SULFATE 1GM / D5W 1 GM in PREMIXED IN D5W 100 ML IV SCH ×2 (09:03→10:23)
[2017-07-05] MEDS: PANTOprazole INJ 40 MG in SYRINGE 0 ML IV SCH ×2 (09:04→20:32)
--- NOTE | 2017-07-05 09:29 | GASTROENTEROLOGY PROGRESS NOTE ---
DATE: 07/04/2017 GASTROENTEROLOGY INPATIENT PROGRESS NOTE SUBJECTIVE: Chart reviewed, the patient examined. The patient presented several days ago with hematochezia and found to have evidence of C. diff colitis. There is also a question of the celiac axis stenosis. The patient developed unstable cardiopulmonary status and ultimately was placed on pressors, intubated. Pressors are now off today. The patient is nonverbal. ALLERGIES: CODEINE, INDOMETHACIN, IODINE, PENICILLIN AND SULFA ANTIBIOTICS. MEDICATIONS: Include methylprednisolone, heparin flush, enteral feeds, artificial tears, vancomycin 500 mg as an enema every 6 hours along with metronidazole and oral vancomycin. She is also on cefepime. Ventolin inhaler, ipratropium, insulin coverage, fentanyl and Flagyl 500 q. 8. Also, thiamine, folic acid replacement, pantoprazole 40 mg twice daily IV. LABORATORY STUDIES: Today show white count that is slightly up from yesterday at 13.4, hemoglobin stable at 7.8, platelets are 80,000. Influenzas are negative. INR is 1.5 today. BUN and creatinine this afternoon 24 and 1.0, calcium 6.5. Early this morning, phosphorus was low at 1.6, magnesium 1.4, ionized calcium is also low on the . REVIEW OF SYSTEMS: Unobtainable. PHYSICAL EXAMINATION: GENERAL: The patient is intubated, 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. HEENT: Sclerae are anicteric. HEART: Normal S1, S2. ABDOMEN: Soft, obese, nontender, without evidence of tense ascites. There is trace to +1 edema. LUNGS: Show coarse sounds. HEART: Normal S1, S2. IMAGING STUDIES: Today: Chest x-ray with improved aeration of the mid to upper lung regions bilaterally, persistent bibasilar parenchymal infiltrative pulmonary edematous changes. IMPRESSION AND PLAN: The patient with evidence of Clostridium difficile colitis, rectal bleeding, ischemic colitis in the differential. There has been no report of ongoing rectal bleeding and hemoglobin appears stable. RECOMMENDATIONS: Would continue current therapy with vancomycin enema, p.o. vancomycin and Flagyl IV. Would consider removal of other antibiotics unless there is evidence of other infections. Slowly advance tube feeds as tolerated. Would watch hemoglobin serially. Aggressive correction of any minimal electrolyte abnormalities including phosphorus, calcium. We will follow with you. Consider flat plate of the abdomen tomorrow, if no bowel movements are occurring and do not start with advancement of tube feeds.
[2017-07-05] MEDS: FoLIC ACID INJ 1 MG in SYRINGE 9.8 ML IV SCH (10:24)
[2017-07-05] MEDS: THIAMINE HCL INJ 100 MG in SYRINGE 9 ML IV SCH (10:24)
--- NOTE | 2017-07-05 14:01 | Critical Care Progress Note ---
Critical Care Progress Note Date of Service Jul 05, 2017. ICU Day ICU Day Number: [address] Bales Subjective Unable to obtain due to pt mental status or condition. Lengthy discussion with nursing. ON: saturation dropped and minute ventilation decreased from 11L/min to 5-6L/min. ET tube balloon was found to be defective. Dr. Robin exchanged tubes. Ventilation was re-initiated with peep of 8 and FiO2 of 60%. Fentanyl remained at 100mcg/h. RASS was -4. Objective General: fully sedated, resting in bed DESOLDERER: RASS score of -4 (deeply sedated; unarousable to vocal and tactile stimuli) HEENT: Scleral icterus, ET tube and OG tube Lungs: coarse breath sounds, scattered rhonchi CVS: RRR, normal S1, S2, no murmurs Skin: L femoral central venous cath and A line site C/D/I, jaundiced Abdomen: +BS (hypoactive); less distended, no reaction to palpation (note: fully sedated), severe hepatomegaly (abdominal exam improved from yesterday) Extremities: 3+ pedal edema Assessment & Plan Resident Physician Supervision Note: I was present with Dr. Horton during the history and exam. I discussed the case with the resident and agree with the findings and plan as documented in the note. Any exceptions or clarifications are listed here: The Femoral Lines out today. Continue attempts at weaning. May require diuresis. Steroids to be tapered. Consider stop of the cefepime. Documented By: Brice Bales 52y/oF with severe sepsis secondary to likely C.diff vs. ischemic colitis. Now with persistent liver failure in the setting of alcoholic cirrhosis, improving respiratory failure/ARDS on mechanical ventilation (PC, transitioned to low peep and low FiO2, hoping to get off vent). Acidosis improved. Weaned off pressors and weaning sedation further. Trickle feeds restarted. PLAN: DESOLDERER: Received 50 mcg/kg/min of Rocuronium for ET tube exchange ON. This AM RASS score -4. Goal RASS score of -1 while on mechanical ventilation. 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 No intervention at this time. SMA/LISBET patent. Hypervolemic +33L PULM: In acute respiratory failure and on ARDSnet protocol. P and F ratio 130 Vent: On PC - RR 16; 50% O2; PEEP 5 (goal - low peep; low O2). Peak airway pressure 29 Pulm Toilet: alubterol 4 puffs Q4H; Atrovent 4 puffs Q4H Methylpred 40mg Q12H (on meduri protocol 32 days) RENAL/METABOLIC: renal function at baseline Cr ~ 1; Cr today mildly elevated at 1.25 Stable urine output rate - 0.26 ml/kg/hr (640ml in 24 hours) Volume overloaded by +33L Consider diuresing as BP improves ID: Concern for uremia and bacteremia given C. diff vs ischemic colitis and PNA. Blood culture from 07/01 no growth Fungal gram stain and culture - pending Sputum gram stain and culture - marisol albicans PNA - antibiotic regimen narrowed to Cefepime day 5 of 10 Received IV vanc x 3 days ENDO: off Insulin gtt; blood sugars in 120s-140s range Monitor BSGs No Insulin ordered at this time HEME: Improving anemia and platelet count H/H this AM 9.2/29.1 from 7.5/23.[address] 113 from 80 yesterday No evidence of bleeding Heparin PF4 Ab - neg Monitor CBC Consider transfusing once Hgb < 7 Electrolytes: Low Ca 6.6 (corrected 7.8 given albumin of 1.9), Mag 1.4 and Phos 2.6 Ordered Mag [id number] x 2 Nutrition: Started trickle tube feeds of Peptamen 1.5 @10mls/hr per nutrition recommendations Vit C and Thiamine cocktail Folic Acid GI: will start trickle tube feeds Persistent liver failure; total bilirubin downtrended to 8.2 from 9.3 and direct bili from 8.1 to 7.8; AST stable at 54 and Alk phos 209 on 07/03 MELD score 20 (19.6% mortality risk); Child-Burns score of 10 (class C) - based on 07/03 labs Continue recurrent C.diff Colitis treatment: Vanc PO day 6; Vanc MS day 4; Flagyl IV day 5 Consulted surgery: high mortality risk for total colectomy at this time GI prophylaxis: Protonix 40mg IV BID IV access: Placed PICC line today Removed L femoral tri-lumen central venous cath and kyle today DVT Prophylaxis: Heparin 5000 units BID; SCDs PROGNOSIS: poor given high mortality in the setting of severe sepsis and multi- organ failure and poor baseline healthy Palliative care consulted Family Meeting: maintain current care plan, do not escalate care, would like to avoid surgery at this point; will reassess if condition worsens CCT: 45 minutes independent of procedures Thank you for including us in the care of this patient. Please refer to Dr. Bales's addendum for further recommendations. Consults & Procedures Consultants: GI: Dr Joseph Vascular: Dr Baron General Surgery: Dr. Choe IV team for PICC line Procedures: 07/01/17: left femoral TLC 07/01/17: left femoral a-line 07/01/17: intubation Data Medications: Current Inpatient Medications Medications (Trade) Dose Ordered Sig/Razia Route Start Time Stop Time Status Last Admin Dose Admin Pantoprazole Sodium 40 mg/ Syringe 10 ml @ 5 mls/min BID IV 06/27/17 09:00 07/27/17 08:59 07/05/17 09:04 5 MLS/MIN Thiamine HCl 100 mg/Syringe 10 ml @ 2 mls/min Q24H IV 06/28/17 11:00 07/28/17 10:59 07/05/17 10:24 2 MLS/MIN Folic Acid 1 mg/ Syringe 10 ml @ 5 mls/min Q24H IV 06/28/17 11:00 07/28/17 10:59 07/05/17 10:24 5 MLS/MIN Lorazepam (Ativan Inj) 1 mg ONE PRN IV 06/27/17 09:15 Ondansetron HCl (Zofran Inj) 4 mg Q6H PRN IV 06/27/17 17:46 07/27/17 17:45 Hydromorphone HCl (Dilaudid Inj) 1 mg Q3HWA PRN IV 06/29/17 09:15 07/13/17 09:14 06/30/17 20:36 1 MG Vancomycin HCl (Vancomycin Oral Soln) 250 mg Q6H PO 06/30/17 10:00 07/10/17 09:59 07/05/17 09:05 250 MG Albuterol/ Ipratropium (Duoneb) 3 ml Q4 PRN INH 07/01/17 05:30 07/31/17 05:29 Future Hold 07/01/17 10:06 3 ML Metronidazole 500 mg/Prmx 100 ml @ 100 mls/hr Q8H IV 07/01/17 10:00 07/07/17 09:59 07/05/17 09:07 100 MLS/HR Cefepime HCl (Consult) 1 ea UD PRN N/A 07/01/17 07:45 07/11/17 07:44 Fentanyl Citrate 250 ml @ 0 mls/hr Q0M PRN IV 07/01/17 21:15 07/15/17 21:14 07/04/17 23:25 10 MLS/HR Insulin Human Regular 250 units/ Sodium Chloride 252.5 ml @ 0 mls/hr Q24H IV 07/02/17 00:00 08/01/17 00:00 07/05/17 00:27 0.4 MLS/HR Insulin Aspart (novoLOG ASPART) SLIDING SCALE HS SC 07/02/17 08:00 08/01/17 07:59 Future Hold Glucose (Glucose 40% Gel) 15-30 GRAMS 15 GRAMS... UD PRN PO 07/01/17 23:45 07/31/17 23:44 Glucose (Glucose Chew Tab) 4-8 Tablets 4 Tabl... UD PRN PO 07/01/17 23:45 07/31/17 23:44 Dextrose (Dextrose 50% 50ML Syringe) 25-50ML OF 50% DW IV FOR... UD PRN IV 07/01/17 23:45 07/31/17 23:44 Glucagon (Glucagon Inj) 1 mg UD PRN SQ 07/01/17 23:45 07/31/17 23:44 Albuterol (Ventolin Hfa Inhaler) 4 puffs Q4R INH 07/02/17 08:00 08/01/17 07:59 07/05/17 11:37 4 PUFFS Ipratropium [place] (Atrovent Hfa Inhaler) 4 puffs Q4R INH 07/02/17 08:00 08/01/17 07:59 07/05/17 11:37 4 PUFFS Ascorbic Acid 1500 mg/Sodium Chloride 103 ml @ 206 mls/hr Q6H IV 07/02/17 10:00 07/06/17 04:29 07/05/17 10:23 206 MLS/HR Heparin Sodium (Porcine) (Heparin Sq 5000 Unit/0.5ml) 5,000 unit Q8H SQ 07/02/17 14:00 08/01/17 13:59 07/05/17 05:17 5,000 UNIT Cefepime HCl 2000 mg/Syringe 20 ml @ 5 mls/min Q8H IV 07/02/17 17:00 07/11/17 16:59 07/05/17 09:04 5 MLS/MIN Vancomycin HCl (Vancomycin Enema) 500 mg Q6H MS 07/02/17 20:00 07/12/17 19:59 Future hold 07/05/17 09:04 500 MG Artificial Tears (Lacri-Lube Oph Oint) 1 appln Q2H PRN OPB 07/02/17 21:45 08/01/17 21:44 Enteral Nutritional Formula (Peptamen 1.5) 1,000 ml UD PRN OG 07/04/17 11:00 08/03/17 10:59 07/04/17 13:49 1,000 ML Heparin Sodium (Porcine) (Heparin 10 Unit/ ml 5 ml Flush) 5 ml PRN PRN FLUSH 07/04/17 20:45 08/03/17 20:44 Methylprednisolone Sodium Succinate 40 mg/Syringe 0.64 ml @ 1.5 mls/min Q12H IV 07/05/17 20:00 08/04/17 19:59 I & O: 24hr: Is 2653cc, Os: 765cc +1888cc UOP 640cc rate = 0.26cc/kg/hr. OG tube 125cc Vital Signs: Date Time Temp Pulse Resp B/P (MAP) Pulse Ox O2 Delivery O2 Flow Rate FiO2 07/05/17 12:01 101 14 123/68 (83) 97 07/05/17 12:00 91 Mechanical Ventilator 50 07/05/17 12:00 50 07/05/17 12:00 36.9 98 16 123/68 (86) 93 Mechanical Ventilator 50 07/05/17 11:37 50 07/05/17 11:00 91 16 121/70 (87) 96 Mechanical Ventilator 50 07/05/17 11:00 91 16 (87) 96 121/70 07/05/17 11:00 91 16 (87) 96 121/70 07/05/17 10:01 94 16 (88) 97 123/71 07/05/17 10:00 17 123/71 (88) 96 Mechanical Ventilator 50 07/05/17 09:01 95 19 117/54 (75) 92 Mechanical Ventilator 40 07/05/17 09:01 95 19 (83) 92 117/54 07/05/17 08:01 99 17 105/87 (84) 92 114/67 07/05/17 08:00 37.1 101 23 136/61 (86) 92 Mechanical Ventilator 40 105/87 (93) 07/05/17 08:00 40 07/05/17 08:00 94 Mechanical Ventilator 50 07/05/17 08:00 Mechanical Ventilator 40 07/05/17 07:30 40 07/05/17 07:00 101 17 (79) 95 109/63 07/05/17 07:00 101 17 109/63 (78) 95 07/05/17 06:00 107 17 113/65 (81) 96 Mechanical Ventilator 60 07/05/17 06:00 107 17 (81) 96 113/65 07/05/17 05:59 60 07/05/17 05:00 120 16 114/61 (78) 90 Mechanical Ventilator 60 07/05/17 05:00 120 16 (75) 90 114/61 07/05/17 04:20 60 07/05/17 04:00 94 Mechanical Ventilator 60 07/05/17 04:00 119 10 (106) 96 144/86 07/05/17 04:00 60 07/05/17 04:00 36.7 119 10 144/86 (105) 96 Mechanical Ventilator 60 07/05/17 03:00 101 16 (97) 89 125/75 07/05/17 03:00 101 16 125/75 (92) 89 Mechanical Ventilator 40 07/05/17 02:16 40 07/05/17 02:00 92 22 (89) 91 118/71 07/05/17 02:00 92 22 118/71 (87) 91 Mechanical Ventilator 40 07/05/17 01:00 92 19 (88) 91 117/71 07/05/17 01:00 92 19 117/71 (86) 91 Mechanical Ventilator 40 07/05/17 00:01 94 17 105/64 (88) 91 118/72 07/05/17 00:01 94 17 118/72 (87) 91 Mechanical Ventilator 40 07/05/17 00:00 93 18 (89) 91 118/71 07/05/17 00:00 36.9 93 18 118/71 (87) 91 Mechanical Ventilator 40 07/04/17 23:59 91 Mechanical Ventilator 40 07/04/17 23:59 40 07/04/17 23:09 40 07/04/17 23:00 95 16 (92) 90 121/74 07/04/17 23:00 95 16 121/74 (90) 90 Mechanical Ventilator 40 07/04/17 22:01 93 16 101/63 (93) 92 121/75 (92) 07/04/17 21:30 90 16 112/69 (85) 91 07/04/17 21:00 91 16 115/72 (89) 90 07/04/17 20:30 86 16 107/66 (81) 91 07/04/17 20:00 37.1 07/04/17 20:00 Mechanical Ventilator 35 07/04/17 20:00 86 16 96/66 (74) 92 112/69 07/04/17 20:00 35 07/04/17 19:30 85 16 109/68 (83) 92 07/04/17 19:00 84 16 109/67 (83) 93 07/04/17 18:55 35 07/04/17 18:45 35 07/04/17 18:00 86 15 105/61 (76) 88 Mechanical Ventilator 35 07/04/17 17:56 35 07/04/17 17:00 87 25 107/67 (80) 93 35 07/04/17 16:00 35 07/04/17 16:00 36.7 87 25 107/67 (80) 90 Mechanical Ventilator 35 97/64 (75) 07/04/17 16:00 90 Mechanical Ventilator 35 07/04/17 15:34 35 07/04/17 15:00 86 25 112/70 (84) 91 07/04/17 14:00 85 24 120/76 (91) 07/04/17 13:59 35 Laboratory Results: Last 24 Hours Test 07/04/17 13:24 07/04/17 15:42 07/04/17 16:03 07/04/17 17:09 Bedside Glucose (other) 101 mg/dl 97 mg/dl 94 mg/dl White Blood Count 13.40 K/uL Red Blood Count 2.31 M/uL Hemoglobin 7.8 g/dL Hematocrit 23.8 % Mean Corpuscular Volume 103.0 fL Mean Corpuscular Hemoglobin 33.8 pg Mean Corpuscular Hemoglobin Concent 32.8 g/dl Platelet Count 80 K/uL Mean Platelet Volume 11.3 fL Neutrophils (%) (Auto) 81.9 % Lymphocytes (%) (Auto) 7.2 % Monocytes (%) (Auto) 3.5 % Eosinophils (%) (Auto) 0.0 % Basophils (%) (Auto) 0.6 % Neutrophils # (Auto) 10.98 K/uL Lymphocytes # (Auto) 0.96 K/uL Monocytes # (Auto) 0.47 K/uL Eosinophils # (Auto) 0.00 K/uL Basophils # (Auto) 0.08 K/uL RDW Standard Deviation 94.7 fL RDW Coefficient of Variation 25.6 % Immature Granulocyte % (Auto) 6.8 % Immature Granulocyte # (Auto) 0.91 K/uL Nucleated RBC Absolute Count (auto) 0.45 K/uL Nucleated Red Blood Cells % 3.3 % Toxic Granulation 1+ Toxic Vacuolation 1+ Large Platelets 1+ Polychromasia 1+ Anisocytosis PRESENT Pappenheimer Bodies 1+ Target Cells 1+ Sodium Level 140 mmol/L Potassium Level 4.1 mmol/L Chloride Level 109 mmol/L Carbon Dioxide Level 22 mmol/L Anion Gap 9.0 mmol/L Blood Urea Nitrogen 24 mg/dl Creatinine 1.08 mg/dl Est Creatinine Clear Calc Drug Dose 76.0 ml/min Estimated GFR () 68.4 Estimated GFR (Non- 59.0 BUN/Creatinine Ratio 22.3 Random Glucose 110 mg/dl Calcium Level 6.5 mg/dl Heparin-PF4 Antibody Screen NEG Test 07/04/17 18:06 07/04/17 19:36 07/04/17 20:33 07/04/17 21:36 Bedside Glucose (other) 96 mg/dl Bedside Glucose 135 mg/dl 132 mg/dl 129 mg/dl Test 07/04/17 22:47 07/04/17 23:53 07/05/17 01:41 07/05/17 03:18 Bedside Glucose 145 mg/dl 144 mg/dl 139 mg/dl 130 mg/dl Test 07/05/17 05:26 07/05/17 06:18 07/05/17 09:17 White Blood Count 24.48 K/uL Red Blood Count 2.75 M/uL Hemoglobin 9.2 g/dL Hematocrit 29.1 % Mean Corpuscular Volume 105.8 fL Mean Corpuscular Hemoglobin 33.5 pg Mean Corpuscular Hemoglobin Concent 31.6 g/dl Platelet Count 113 K/uL Mean Platelet Volume 12.2 fL Neutrophils (%) (Auto) 79.2 % Lymphocytes (%) (Auto) 8.0 % Monocytes (%) (Auto) 3.0 % Eosinophils (%) (Auto) 0.0 % Basophils (%) (Auto) 0.9 % Neutrophils # (Auto) 19.37 K/uL Lymphocytes # (Auto) 1.97 K/uL Monocytes # (Auto) 0.73 K/uL Eosinophils # (Auto) 0.01 K/uL Basophils # (Auto) 0.21 K/uL RDW Standard Deviation 97.2 fL RDW Coefficient of Variation 26.2 % Immature Granulocyte % (Auto) 8.9 % Immature Granulocyte # (Auto) 2.19 K/uL Nucleated RBC Absolute Count (auto) 0.98 K/uL Nucleated Red Blood Cells % 4.0 % Platelet Estimate DECREASED Anisocytosis PRESENT Pappenheimer Bodies 1+ Sodium Level 139 mmol/L Potassium Level 4.0 mmol/L Chloride Level 108 mmol/L Carbon Dioxide Level 19 mmol/L Anion Gap 12.0 mmol/L Blood Urea Nitrogen 29 mg/dl Creatinine 1.25 mg/dl Est Creatinine Clear Calc Drug Dose 66.4 ml/min Estimated GFR () 57.3 Estimated GFR (Non- 49.4 BUN/Creatinine Ratio 22.9 Bedside Glucose 127 mg/dl Random Glucose 118 mg/dl Calcium Level 6.6 mg/dl Phosphorus Level 2.6 mg/dl Magnesium Level 1.4 mg/dl Blood Gas Sample Site Art Line Bedside Blood Gas pH (LAB) 7.27 Bedside Blood Gas pCO2 (LAB) 40 mmHg Bedside Blood Gas pO2 (LAB) 78 mmHg Bedside Blood Gas HCO3 (LAB) 18 meq/L Bedside Blood Gas Total CO2 19 mEq/l Bedside Blood Gas Base Excess (LAB) -9.0 meq/L Bedside Blood Gas O2 Saturation 93.0 % Leonidas Test NA Oxygen Delivery Device Ventilator Bedside Oxygen Rate (breaths/min) 16 Bedside FiO2 60 % Blood Gas PEEP 8 Ionized Calcium 0.88 mmol/l
[2017-07-05] MEDS ORDERED: FUROSEMIDE INJ 20 MG in SYRINGE 0 ML IV ONE (15:10)
--- NOTE | 2017-07-05 19:42 | GASTROENTEROLOGY PROGRESS NOTE ---
DATE: 07/05/2017 GASTROENTEROLOGY INPATIENT PROGRESS NOTE SUBJECTIVE: Chart reviewed, patient examined. The patient continues to remain free of pressor agents. She is on antibiotics including cefepime, vancomycin enema, oral vancomycin and IV Flagyl for C. diff infection. The indication for cefepime is unclear. On today's assessment, her white blood cell count unfortunately is 24,000, which is a sizable increase from yesterday at 13.4. Her hemoglobin, however, is 9.2, up from 7.8, despite lack of transfusion based on the medical record. The patient is nonverbal, although medications are being weaned off. MEDICATIONS: Currently include methylprednisolone 40 mg q.12, heparin flush, enteral feeds slow rate, vancomycin 500 mg oral q. 6, cefepime 2 grams IV q. 8, ascorbic acid, albuterol/ipratropium, glucose, dextrose, fentanyl on a p.r.n. basis, metronidazole 500 q. 8 hours IV, folate, thiamin, and pantoprazole 540 mg b.i.d. REVIEW OF SYSTEMS: Unobtainable. PHYSICAL EXAMINATION: VITAL SIGNS: Remained stable. Blood pressure today 109/73, pulse ox 94% on 60% FIO2 on mechanical ventilation, respirations 15, heart rate 105. GENERAL: The patient is arousable, does not open eyes. HEENT: Sclerae are anicteric. Oral mucosa is moist. HEART: Normal S1, S2. LUNGS: Overall course sounds but no wheezes. ABDOMEN: Soft, nontender, nondistended with diminished bowel sounds. EXTREMITIES: Without significant edema. LABORATORY STUDIES: Show additional laboratory studies from today - BUN and creatinine are 29 and 1.25. Ionized calcium remains low at 0.88. Magnesium is low at 1.4, although phosphorus level is normal at 2.6. IMPRESSION AND RECOMMENDATIONS: I made the following I make the following recommendations: The white blood cell count has increased of unclear origin. Although if this persists or if there is a fever spike then it may be prudent to consider reimaging of the abdomen and pelvis by CT. At the present time, would continue the current Clostridium difficile regimen. Would maintain good electrolytes, replace and monitor phosphorus, magnesium and calcium as needed. Tube feeds can be advanced as tolerated with checking of residuals. Tube feeds are currently at 10 mL an hour. There are no bowel movements identified from throughout Sunday up until the current time.
--- NOTE | 2017-07-05 22:31 | Progress Note ---
Subjective Date of Service: Jul 05, 2017. Subjective As per nurse, patient is off pressors dw family, as they were at bedside and were updated. Kimberley bean sorter, hoping to ween off tube tomorrow Patient is intubated and 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. Unable to obtain a history from patient. Problem List Medical Problems: (1) Abdominal pain Status: Acute (2) Acute pancreatitis Status: Acute (3) Alcohol abuse Status: Acute (4) Alcohol intoxication Status: Acute (5) Anemia Status: Acute (6) Anemia Status: Acute (7) Biliary obstruction Status: Acute (8) C. difficile colitis Status: Acute (9) C. difficile diarrhea Status: Acute (10) Chest pain Status: Acute (11) Contusion of multiple sites Status: Acute (12) Dehydration Status: Acute (13) Dehydration Status: Acute (14) Encounter for smoking cessation counseling Status: Acute (15) Epigastric abdominal pain Status: Acute (16) Fall Status: Acute (17) Fall due to slipping on ice or snow Status: Acute (18) Fracture of left distal radius Status: Acute (19) Hypocalcemia Status: Acute (20) Hypomagnesemia Status: Acute (21) Hypomagnesemia Status: Acute (22) Hypotension Status: Acute (23) Lactic acidosis Status: Acute (24) Liver failure Status: Acute (25) Pancreatitis Status: Acute Review of Systems All Other Systems: Reviewed and Negative Objective Vital Signs Date Time Temp Pulse Resp B/P (MAP) Pulse Ox O2 Delivery O2 Flow Rate FiO2 07/05/17 22:08 37.4 108 18 113/68 (83) 94 Mechanical Ventilator 50 07/05/17 21:00 109 20 93 07/05/17 20:43 111 19 93 Mechanical Ventilator 60 07/05/17 20:01 108 16 115/65 (82) 95 07/05/17 20:00 60 07/05/17 20:00 107 16 95 07/05/17 19:01 108 16 113/67 (82) 95 07/05/17 19:00 50 07/05/17 19:00 108 16 95 07/05/17 19:00 37.3 107 16 113/67 (82) 95 Mechanical Ventilator 50 07/05/17 19:00 Mechanical Ventilator 50 07/05/17 18:01 106 15 104/75 (85) 94 07/05/17 18:01 106 15 104/75 (85) 94 Mechanical Ventilator 60 07/05/17 18:00 107 21 95 18 17:01 105 15 109/73 (85) 94 Mechanical Ventilator 60 18 17:01 105 15 109/73 (85) 94 18 17:00 105 15 94 07/05/17 16:34 60 07/05/17 16:01 37.0 97 16 104/71 (82) 94 Mechanical Ventilator 50 07/05/17 16:01 97 16 104/71 (82) 94 07/05/17 16:00 93 Mechanical Ventilator 50 07/05/17 16:00 50 07/05/17 16:00 97 16 94 07/05/17 15:00 98 16 93 Mechanical Ventilator 50 07/05/17 15:00 98 16 93 07/05/17 14:01 97 16 115/69 (84) 93 Mechanical Ventilator 50 07/05/17 13:00 95 16 93 Mechanical Ventilator 50 07/05/17 12:01 101 14 123/68 (83) 97 07/05/17 12:00 91 Mechanical Ventilator 50 07/05/17 12:00 50 07/05/17 12:00 36.9 98 16 123/68 (86) 93 Mechanical Ventilator 50 07/05/17 11:37 50 07/05/17 11:00 91 16 121/70 (87) 96 Mechanical Ventilator 50 07/05/17 11:00 91 16 (87) 96 121/70 07/05/17 11:00 91 16 (87) 96 121/70 07/05/17 10:01 94 16 (88) 97 123/71 07/05/17 10:00 17 123/71 (88) 96 Mechanical Ventilator 50 07/05/17 09:01 95 19 117/54 (75) 92 Mechanical Ventilator 40 07/05/17 09:01 95 19 (83) 92 117/54 07/05/17 08:01 99 17 105/87 (84) 92 114/67 07/05/17 08:00 37.1 101 23 136/61 (86) 92 Mechanical Ventilator 40 105/87 (93) 07/05/17 08:00 40 07/05/17 08:00 94 Mechanical Ventilator 50 07/05/17 08:00 Mechanical Ventilator 40 07/05/17 07:30 40 07/05/17 07:00 101 17 (79) 95 109/63 07/05/17 07:00 101 17 109/63 (78) 95 07/05/17 06:00 107 17 113/65 (81) 96 Mechanical Ventilator 60 07/05/17 06:00 107 17 (81) 96 113/65 07/05/17 05:59 60 07/05/17 05:00 120 16 114/61 (78) 90 Mechanical Ventilator 60 07/05/17 05:00 120 16 (75) 90 114/61 07/05/17 04:20 60 07/05/17 04:00 94 Mechanical Ventilator 60 07/05/17 04:00 119 10 (106) 96 144/86 07/05/17 04:00 60 07/05/17 04:00 36.7 119 10 144/86 (105) 96 Mechanical Ventilator 60 07/05/17 03:00 101 16 (97) 89 125/75 07/05/17 03:00 101 16 125/75 (92) 89 Mechanical Ventilator 40 07/05/17 02:16 40 07/05/17 02:00 92 22 (89) 91 118/71 07/05/17 02:00 92 22 118/71 (87) 91 Mechanical Ventilator 40 07/05/17 01:00 92 19 (88) 91 117/71 07/05/17 01:00 92 19 117/71 (86) 91 Mechanical Ventilator 40 07/05/17 00:01 94 17 105/64 (88) 91 118/72 07/05/17 00:01 94 17 118/72 (87) 91 Mechanical Ventilator 40 07/05/17 00:00 93 18 (89) 91 118/71 07/05/17 00:00 36.9 93 18 118/71 (87) 91 Mechanical Ventilator 40 07/04/17 23:59 91 Mechanical Ventilator 40 07/04/17 23:59 40 07/04/17 23:09 40 07/04/17 23:00 95 16 (92) 90 121/74 07/04/17 23:00 95 16 121/74 (90) 90 Mechanical Ventilator 40 Physical Exam Comments: General Appearance: no apparent distress, intubated Neck: supple, no adenopathy, no JVD, trachea midline Respiratory/Chest: chest non-tender, no respiratory distress, no accessory muscle use, improved Cardiovascular: regular rate, rhythm, no edema, no gallop, no JVD, no murmur Abdomen: no organomegaly, + abnormal bowel sounds (hypoactive), + distended, softer than yesterday Extremities: normal range of motion, non-tender, normal inspection, no pedal edema, no calf tenderness, pelvis stable Neurologic/Psychiatric: outside deliverer II-XII nml as tested, + pertinent finding (sedated on Fentanyl) Skin: normal color, warm/dry, no rash Laboratory Results Last 24 Hours Test 07/04/17 22:47 07/04/17 23:53 07/05/17 01:41 07/05/17 03:18 Bedside Glucose 145 mg/dl 144 mg/dl 139 mg/dl 130 mg/dl Test 07/05/17 05:26 07/05/17 06:18 07/05/17 09:17 07/05/17 11:37 White Blood Count 24.48 K/uL Red Blood Count 2.75 M/uL Hemoglobin 9.2 g/dL Hematocrit 29.1 % Mean Corpuscular Volume 105.8 fL Mean Corpuscular Hemoglobin 33.5 pg Mean Corpuscular Hemoglobin Concent 31.6 g/dl Platelet Count 113 K/uL Mean Platelet Volume 12.2 fL Neutrophils (%) (Auto) 79.2 % Lymphocytes (%) (Auto) 8.0 % Monocytes (%) (Auto) 3.0 % Eosinophils (%) (Auto) 0.0 % Basophils (%) (Auto) 0.9 % Neutrophils # (Auto) 19.37 K/uL Lymphocytes # (Auto) 1.97 K/uL Monocytes # (Auto) 0.73 K/uL Eosinophils # (Auto) 0.01 K/uL Basophils # (Auto) 0.21 K/uL RDW Standard Deviation 97.2 fL RDW Coefficient of Variation 26.2 % Immature Granulocyte % (Auto) 8.9 % Immature Granulocyte # (Auto) 2.19 K/uL Nucleated RBC Absolute Count (auto) 0.98 K/uL Nucleated Red Blood Cells % 4.0 % Platelet Estimate DECREASED Anisocytosis PRESENT Pappenheimer Bodies 1+ Sodium Level 139 mmol/L Potassium Level 4.0 mmol/L Chloride Level 108 mmol/L Carbon Dioxide Level 19 mmol/L Anion Gap 12.0 mmol/L Blood Urea Nitrogen 29 mg/dl Creatinine 1.25 mg/dl Est Creatinine Clear Calc Drug Dose 66.4 ml/min Estimated GFR () 57.3 Estimated GFR (Non- 49.4 BUN/Creatinine Ratio 22.9 Bedside Glucose 127 mg/dl 162 mg/dl Random Glucose 118 mg/dl Calcium Level 6.6 mg/dl Phosphorus Level 2.6 mg/dl Magnesium Level 1.4 mg/dl Blood Gas Sample Site Art Line Bedside Blood Gas pH (LAB) 7.27 Bedside Blood Gas pCO2 (LAB) 40 mmHg Bedside Blood Gas pO2 (LAB) 78 mmHg Bedside Blood Gas HCO3 (LAB) 18 meq/L Bedside Blood Gas Total CO2 19 mEq/l Bedside Blood Gas Base Excess (LAB) -9.0 meq/L Bedside Blood Gas O2 Saturation 93.0 % Leonidas Test NA Oxygen Delivery Device Ventilator Bedside Oxygen Rate (breaths/min) 16 Bedside FiO2 60 % Blood Gas PEEP 8 Ionized Calcium 0.88 mmol/l Test 07/05/17 18:01 Bedside Glucose 164 mg/dl Assessment and Plan 52 yo female with history of alcohol abuse, cirrhosis, c diff colitis who presented with weakness, hypotension, bloody diarrhea, KEVIN, acidosis - Septic shock: suspected source is pneumonia, likely aspiration vs colitis Source of sepsis: unclear Surgery is recommending possible total colectomy, however given her critical state and unclear that she may have more of a respiratory issue, pressors, bicarb drip. This procedure is being held for now. In regards to colitis, less distended abdomen. Pressors have been stopped follow up blood cultures drawn today continue IV Flagyl, Cefepime. Continue AK and PO Vanco. Held IV vanco Off pressors Start trickle feeding At this point, we continue to be optimistic that she can recover. - Acute hypoxic respiratory failure, likely from ARDS intubated, ventilator support management per ICU ABG had decreased o2 of 60%. 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 MELD score is 20 - Lactic acidosis: likely from shock, monitor LA, fluid support - KEVIN: Cr is improved but urine output is not adequate 800ml out today despite 2600cc input via IV continue to monitor Cr q4, follow UO in gil metabolic acidosis appears to be improving. - Anemia: HB improved to above 8 stable. will continue to monitor h/o slow GI bleeding for weeks per family transfused 2 units PRBC initially, responded well, no further signs of bleeding - Hypokalemia: resolved, continue to monitor - Hypophosphatemia: low today, replace - Hypomagnesemia: low today, replace - Alcoholism, last drink was two days prior to admission place on withdrawal protocol, had some tremors on admission, resolved for time being thiamine and folate daily no signs of DT's - Hyperbilirubinemia: hepatic steatosis on imaging, likely developing cirrhosis with alcoholism history supportive care, continue to monitor, bili down to 8, INR is 1.5 mother will be decision maker, change to Level 5 DNR if heart would stop discussed held with RN and bean sorter present Continued [facility] stay due to: multiple IV medications needed Discharge planning: uncertain
[2017-07-06] VITALS (28 sets, daily range): BP systolic 111–135; BP diastolic 67–92; PULSE 95–109; TEMP 36.7–37.3; O2SAT 90–95
[2017-07-06] MEDS: VANCOMYCIN ENEMA PR SCH ×4 (01:26→20:12)
[2017-07-06] MEDS: CEFEPIME IV 2,000 MG in SYRINGE 7.5 ML IV SCH (01:26)
[2017-07-06] MEDS: METRONIDAZOLE / NSS 500 MG in PREMIXED NSS 100 ML IV SCH ×3 (01:26→18:34)
[2017-07-06] MEDS: PEPTAMEN 1.5 CAL 1000ML BAG OG PRN (01:57)
[2017-07-06] MEDS: IPRATROPIUM BROMIDE HFA INHALER INH SCH ×6 (03:56→23:00)
[2017-07-06] MEDS: ALBUTEROL HFA 8 GM INHALER INH SCH ×6 (03:57→23:00)
[2017-07-06] MEDS: VANCOMYCIN HCL 250 MG/5 ML SOLN PO SCH ×4 (04:52→21:39)
[2017-07-06] MEDS: ASCORBIC ACID INJ 1,500 MG in NSS 100 ML IV SCH (04:53)
[2017-07-06 06:01] LABS: MEAN CORPUSCULAR HGB CONC 31.7 g/dl (32-36); NUCLEATED RED BLOOD CELL ABS 1.61 K/uL (0-0)
[2017-07-06] MEDS: HEPARIN SOD 5000 UNIT/0.5 ML CARP SQ SCH ×3 (06:39→21:40)
[2017-07-06 06:48] LABS: HEMATOCRIT 27.1 % (37-47); HEMOGLOBIN 8.6 g/dL (12.0-16.0); MEAN CELL VOLUME 105.4 fL (80-100); MEAN CORPUSCULAR HEMOGLOBIN 33.5 pg (25-34); MEAN PLATELET VOLUME 11.4 fL (7.4-10.4); PLATELET COUNT 91 K/uL (130-400); RED CELL DISTRIBUTION WIDTH CV 26.4 % (11.5-14.5); RED CELL DISTRIBUTION WIDTH SD 98.9 fL (36.4-46.3); WHITE BLOOD COUNT 27.14 K/uL (4.8-10.8)
[2017-07-06 06:50] LABS: ALBUMIN 1.8 gm/dl (3.4-5.0); CALCIUM 7.3 mg/dl (8.5-10.1); CREATININE 1.16 mg/dl (0.60-1.20); POTASSIUM 4.2 mmol/L (3.5-5.1)
[2017-07-06 06:55] LABS: TOTAL PROTEIN 5.1 gm/dl (6.4-8.2)
[2017-07-06] MEDS ORDERED: FUROSEMIDE INJ 40 MG in SYRINGE 0 ML IV ONE ×2 (07:45→16:15)
--- NOTE | 2017-07-06 08:05 | DIAGNOSTIC IMAGING REPORT ---
CHEST ONE VIEW PORTABLE CLINICAL HISTORY: Respiratory failure. ARDS. COMPARISON STUDY: Chest radiograph July 06, 2015. FINDINGS: Tip of nasogastric tube is below lower aspect of the image but at least within the mid body of the stomach. The tip of the endotracheal tube is 3.4 cm above the [place]. A right subclavian central venous catheter is in place. There is no pneumothorax. No definite pleural effusion is visualized. Right basilar opacity persists. Airspace opacity within left lung is unchanged. IMPRESSION: 1. Satisfactory positioning of lines and tubes. 2. Persistent bilateral airspace opacities which may reflect pneumonia, pulmonary edema or ARDS. Electronically signed by: Vick Mcginnis M.D. 07/06/2017 8:03 AM Dictated Date/Time: 07/06/2017 8:00 AM
--- NOTE | 2017-07-06 09:29 | DIAGNOSTIC IMAGING REPORT ---
HEAD WITHOUT CONTRAST (CT) CLINICAL HISTORY: 52 years-old Female presenting with AMS, GI bleed. TECHNIQUE: Multidetector CT imaging of the head was performed without the use of intravenous contrast. IV contrast: None. A dose lowering technique was used consistent with the principles of ALARA (as low as reasonably achievable). COMPARISON: 06/27/2017. CT DOSE (mGy.cm): The estimated cumulative dose is 1228.53 mGy.cm. FINDINGS: Disk And Tape Machine Tender topogram: Unremarkable. Ventricles and sulci normal in size. Brain parenchyma normal in appearance with preserved abdi-white differentiation. No mass effect or midline shift. No hemorrhage or acute territorial infarct. No extra-axial fluid collection. Fluid noted in the left mastoid air cells and sphenoid sinus. Calvarium intact. IMPRESSION: 1. No acute intracranial abnormality. Electronically signed by: Brice Noble M.D. 07/06/2017 9:28 AM Dictated Date/Time: 07/06/2017 9:21 AM
[2017-07-06] MEDS: METHYLPREDNISOLONE IV 40 MG in SYRINGE 0 ML IV SCH ×2 (09:34→20:12)
[2017-07-06] MEDS: PANTOprazole INJ 40 MG in SYRINGE 0 ML IV SCH ×2 (09:34→20:12)
[2017-07-06] MEDS: THIAMINE HCL INJ 100 MG in SYRINGE 9 ML IV SCH (10:54)
[2017-07-06] MEDS: FoLIC ACID INJ 1 MG in SYRINGE 9.8 ML IV SCH (10:54)
--- NOTE | 2017-07-06 10:54 | Neurology Consultation ---
Neurology Consultation Date of Consultation: Jul 06, 2017. Attending Physician: Kevon Mitchell M.D. Primary Care Physician: Jeb Burgess MD Reason for Consultation: "Concern for nonconvulsive status" History of Present Illness Source: hospital records The patient is a 52-year-old female who presented to the emergency department 9 days ago with abdominal pain, nausea, vomiting, and bleeding per rectum which began about 1 week prior. She has a history of heavy alcohol abuse and pancreatitis. The patient is critically ill with sepsis, colitis, liver failure , alcohol related cirrhosis, respiratory failure, acidosis, and anemia. She is 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 on life support and is jaundiced. 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 A follow-up CT of the head completed today is unchanged. I reviewed the images as well as a radiologist's interpretation of this test. Electrocardiogram is revealed a normal sinus rhythm, 97 beats per minute. Past Medical/Surgical History Medical Problems: (1) Abdominal pain Status: Acute (2) Acute pancreatitis Status: Acute (3) Alcohol abuse Status: Acute (4) Alcohol intoxication Status: Acute (5) Anemia Status: Acute (6) Anemia Status: Acute (7) Biliary obstruction Status: Acute (8) C. difficile colitis Status: Acute (9) C. difficile diarrhea Status: Acute (10) Chest pain Status: Acute (11) Contusion of multiple sites Status: Acute (12) Dehydration Status: Acute (13) Dehydration Status: Acute (14) Encounter for smoking cessation counseling Status: Acute (15) Epigastric abdominal pain Status: Acute (16) Fall Status: Acute (17) Fall due to slipping on ice or snow Status: Acute (18) Fracture of left distal radius Status: Acute (19) Hypocalcemia Status: Acute (20) Hypomagnesemia Status: Acute (21) Hypomagnesemia Status: Acute (22) Hypotension Status: Acute (23) Lactic acidosis Status: Acute (24) Liver failure Status: Acute (25) Pancreatitis Status: Acute Family History Noncontributory Social History Smoking Status: Current every day smoker Alcohol Use: heavy Drug Use: none Marital Status: single Occupation Status: employed Allergies Coded Allergies: Penicillins (Verified Allergy, Intermediate, RASH/HIVES, 06/27/17) Sulfa Antibiotics (Verified Allergy, Intermediate, HIVES, 06/27/17) Codeine (Verified Allergy, Unknown, ., 06/27/17) has tolerated morphine on multiple occasions while hospitalized Indomethacin (Verified Allergy, Unknown, 06/27/17) Iodine (Verified Allergy, Unknown, 06/27/17) Ransom (Verified Allergy, Unknown, 06/27/17) Current Inpatient Medications Current Inpatient Medications Medications (Trade) Dose Ordered Sig/Razia Route Start Time Stop Time Status Last Admin Dose Admin Pantoprazole Sodium 40 mg/ Syringe 10 ml @ 5 mls/min BID IV 06/27/17 09:00 07/27/17 08:59 07/06/17 09:34 5 MLS/MIN Thiamine HCl 100 mg/Syringe 10 ml @ 2 mls/min Q24H IV 06/28/17 11:00 07/28/17 10:59 07/05/17 10:24 2 MLS/MIN Folic Acid 1 mg/ Syringe 10 ml @ 5 mls/min Q24H IV 06/28/17 11:00 07/28/17 10:59 07/05/17 10:24 5 MLS/MIN Lorazepam (Ativan Inj) 1 mg ONE PRN IV 06/27/17 09:15 Ondansetron HCl (Zofran Inj) 4 mg Q6H PRN IV 06/27/17 17:46 07/27/17 17:45 Hydromorphone HCl (Dilaudid Inj) 1 mg Q3HWA PRN IV 06/29/17 09:15 07/13/17 09:14 06/30/17 20:36 1 MG Vancomycin HCl (Vancomycin Oral Soln) 250 mg Q6H PO 06/30/17 10:00 07/10/17 09:59 07/06/17 09:34 250 MG Albuterol/ Ipratropium (Duoneb) 3 ml Q4 PRN INH 07/01/17 05:30 07/31/17 05:29 Future Hold 07/01/17 10:06 3 ML Metronidazole 500 mg/Prmx 100 ml @ 100 mls/hr Q8H IV 07/01/17 10:00 07/07/17 09:59 07/06/17 09:34 100 MLS/HR Insulin Aspart (novoLOG ASPART) SLIDING SCALE PCHS SC 07/02/17 08:00 08/01/17 07:59 Future Hold Glucose (Glucose 40% Gel) 15-30 GRAMS 15 GRAMS... UD PRN PO 07/01/17 23:45 07/31/17 23:44 Glucose (Glucose Chew Tab) 4-8 Tablets 4 Tabl... UD PRN PO 07/01/17 23:45 07/31/17 23:44 Dextrose (Dextrose 50% 50ML Syringe) 25-50ML OF 50% DW IV FOR... UD PRN IV 07/01/17 23:45 07/31/17 23:44 Glucagon (Glucagon Inj) 1 mg UD PRN SQ 07/01/17 23:45 07/31/17 23:44 Albuterol (Ventolin Hfa Inhaler) 4 puffs Q4R INH 07/02/17 08:00 08/01/17 07:59 07/06/17 03:57 4 PUFFS Ipratropium [place] (Atrovent Hfa Inhaler) 4 puffs Q4R INH 07/02/17 08:00 08/01/17 07:59 07/06/17 03:56 4 PUFFS Heparin Sodium (Porcine) (Heparin Sq 5000 Unit/0.5ml) 5,000 unit Q8H SQ 07/02/17 14:00 08/01/17 13:59 07/06/17 06:39 5,000 UNIT Vancomycin HCl (Vancomycin Enema) 500 mg Q6H [place] 07/02/17 20:00 07/12/17 19:59 Future hold 07/06/17 09:34 500 MG Artificial Tears (Lacri-Lube Oph Oint) 1 appln Q2H PRN OPB 07/02/17 21:45 08/01/17 21:44 Enteral Nutritional Formula (Peptamen 1.5) 1,000 ml UD PRN OG 07/04/17 11:00 08/03/17 10:59 07/06/17 01:57 1,000 ML Heparin Sodium (Porcine) (Heparin 10 Unit/ ml 5 ml Flush) 5 ml PRN PRN FLUSH 07/04/17 20:45 08/03/17 20:44 Methylprednisolone Sodium Succinate 40 mg/Syringe 0.64 ml @ 1.5 mls/min Q12H IV 07/05/17 20:00 08/04/17 19:59 07/06/17 09:34 1.5 MLS/MIN Review of Systems Unable to obtain from patient as she is 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 Physical Exam Vital Signs (Past 24 Hrs): Date Time Temp Pulse Resp B/P (MAP) Pulse Ox O2 Delivery O2 Flow Rate FiO2 07/06/17 09:30 50 07/06/17 08:01 37.3 105 23 130/85 (100) 92 Mechanical Ventilator 60 07/06/17 08:01 105 23 130/85 (99) 92 07/06/17 08:00 92 Mechanical Ventilator 60 07/06/17 08:00 105 0 91 07/06/17 08:00 60 07/06/17 07:50 60 07/06/17 07:01 102 18 118/74 (92) 94 07/06/17 07:01 102 18 118/74 (89) 94 CPAP 60 07/06/17 07:00 102 17 94 07/06/17 06:00 102 17 119/72 (88) 94 CPAP 60 Mechanical Ventilator 07/06/17 06:00 102 17 94 07/06/17 05:00 102 17 94 07/06/17 04:00 103 19 94 07/06/17 04:00 CPAP 15.0 60 Mechanical Ventilator 07/06/17 04:00 37.1 103 19 121/92 (102) 94 CPAP 60 Mechanical Ventilator 07/06/17 04:00 103 19 94 07/06/17 04:00 60 07/06/17 03:59 60 07/06/17 03:00 106 19 94 07/06/17 02:00 107 18 126/74 (91) 94 CPAP 50 Mechanical Ventilator 07/06/17 02:00 107 0 94 07/06/17 01:00 108 19 94 07/06/17 00:01 109 19 123/71 (92) 94 07/05/17 23:59 60 07/05/17 23:59 CPAP 15.0 50 Mechanical Ventilator 07/05/17 23:53 37.1 07/05/17 23:38 60 07/05/17 23:00 60 07/05/17 23:00 107 20 94 07/05/17 22:08 37.4 108 18 113/68 (83) 94 Mechanical Ventilator 50 07/05/17 21:00 109 20 93 07/05/17 20:43 111 19 93 Mechanical Ventilator 60 07/05/17 20:01 108 16 115/65 (82) 95 3/15/18 20:00 60 3/18 20:00 107 16 95 18 19:01 108 16 113/67 (82) 95 18 19:00 50 18 19:00 108 16 95 3/18 19:00 37.3 107 16 113/67 (82) 95 Mechanical Ventilator 50 07/05/17 19:00 Mechanical Ventilator 50 07/05/17 18:01 106 15 104/75 (85) 94 18 18:01 106 15 104/75 (85) 94 Mechanical Ventilator 60 18 18:00 107 21 95 18 17:01 105 15 109/73 (85) 94 Mechanical Ventilator 60 18 17:01 105 15 109/73 (85) 94 07/05/17 17:00 105 15 94 07/05/17 16:34 60 07/05/17 16:01 37.0 97 16 104/71 (82) 94 Mechanical Ventilator 50 07/05/17 16:01 97 16 104/71 (82) 94 18 16:00 93 Mechanical Ventilator 50 07/05/17 16:00 50 18 16:00 97 16 94 07/05/17 15:00 98 16 93 Mechanical Ventilator 50 07/05/17 15:00 98 16 93 18 14:01 97 16 115/69 (84) 93 Mechanical Ventilator 50 07/05/17 13:00 95 16 93 Mechanical Ventilator 50 07/05/17 12:01 101 14 123/68 (83) 97 07/05/17 12:00 91 Mechanical Ventilator 50 07/05/17 12:00 50 18 12:00 36.9 98 16 123/68 (86) 93 Mechanical Ventilator 50 18 11:37 50 18 11:00 91 16 121/70 (87) 96 Mechanical Ventilator 50 18 11:00 91 16 (87) 96 121/70 318 11:00 91 16 (87) 96 121/70 The patient is an obese, critically ill-appearing female. She is currently on the mechanical ventilator. She is jaundiced and edematous. The patient is 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. Pupils are 3 millimeters bilaterally, round, and reactive to light. She exhibits roving eye movements. Unable to obtain blink reflex bilaterally. Unable to obtain gag reflex. Remainder of cranial nerves cannot be assessed. Sensation cannot be assessed. Deep tendon reflexes are diffusely diminished. Plantar responses equivocal. Coordination cannot be tested. Ophthalmoscopic examination cannot be completed due to persistent roving eye movements. Carotid pulses intact bilaterally, no bruits to auscultation. Gait and station cannot be tested. Muscle strength cannot be tested. Muscle tone diffusely flaccid. No atrophy. No abnormal movements observed. Laboratory Results Past 24 Hours: 07/06/17 05:51 Red Blood Count 2.57, Mean Corpuscular Volume 105.4, Mean Corpuscular Hemoglobin 33.5, Mean Corpuscular Hemoglobin Concent 31.7, Mean Platelet Volume 11.4 07/06/17 05:51 Test 07/06/17 00:00 07/06/17 05:51 07/06/17 05:56 Bedside Glucose 163 mg/dl (70-90) White Blood Count 27.14 K/uL (4.8-10.8) Red Blood Count 2.57 M/uL (4.2-5.4) Hemoglobin 8.6 g/dL (12.0-16.0) Hematocrit 27.1 % (37-47) Mean Corpuscular Volume 105.4 fL (80-100) Mean Corpuscular Hemoglobin 33.5 pg (25-34) Mean Corpuscular Hemoglobin Concent 31.7 g/dl (32-36) Platelet Count 91 K/uL (130-400) Mean Platelet Volume 11.4 fL (7.4-10.4) RDW Standard Deviation 98.9 fL (36.4-46.3) RDW Coefficient of Variation 26.4 % (11.5-14.5) Nucleated RBC Absolute Count (auto) 1.61 K/uL (0-0) Neutrophils % (Manual) 93.0 % Lymphocytes % (Manual) 0.9 % Monocytes % (Manual) 2.6 % Metamyelocytes % 0.9 % Myelocytes % 2.6 % Nucleated Red Blood Cells % 5.9 % Neutrophils # (Manual) 25.24 K/uL (1.4-6.5) Total Absolute Neutrophils 25.24 K/uL (1.4-6.5) Lymphocytes # (Manual) 0.24 K/uL (1.2-3.4) Total Absolute Lymphocytes 0.24 K/uL (1.2-3.4) Monocytes # (Manual) 0.71 K/uL (0.11-0.59) Metamyelocytes # 0.24 K/uL (0-0) Myelocytes # 0.71 K/uL (0-0) Platelet Estimate DECREASED Hypochromasia PRESENT Basophilic Stippling 1+ Anisocytosis PRESENT Pappenheimer Bodies 1+ Anion Gap 15.0 mmol/L (3-11) Est Creatinine Clear Calc Drug Dose 71.4 ml/min Estimated GFR () 62.7 Estimated GFR (Non- 54.1 BUN/Creatinine Ratio 31.1 (10-20) Calcium Level 7.3 mg/dl (8.5-10.1) Phosphorus Level 2.0 mg/dl (2.5-4.9) Magnesium Level 1.6 mg/dl (1.8-2.4) Total Bilirubin 6.8 mg/dl (0.2-1) Direct Bilirubin 6.4 mg/dl (0-0.2) Aspartate Amino Transf (AST/SGOT) 67 U/L (15-37) Alanine Aminotransferase (ALT/SGPT) 22 U/L (12-78) Alkaline Phosphatase 243 U/L (45-117) Ammonia 22.0 umol/L (11-32) Total Protein 5.1 gm/dl (6.4-8.2) Albumin 1.8 gm/dl (3.4-5.0) Blood Gas Sample Site R Radial Bedside Blood Gas pH (LAB) 7.35 (7.35-7.45) Bedside Blood Gas pCO2 (LAB) 29 mmHg (35-46) Bedside Blood Gas pO2 (LAB) 94 mmHg (80-95) Bedside Blood Gas HCO3 (LAB) 16 meq/L (19-24) Bedside Blood Gas Total CO2 17 mEq/l (24-31) Bedside Blood Gas Base Excess (LAB) -10.0 meq/L (-9-1.8) Bedside Blood Gas O2 Saturation 97.0 % (90-95) Leonidas Test Pass Oxygen Delivery Device Ventilator Bedside FiO2 60 % Blood Gas PEEP 5 Impression Severe encephalopathy occurring in the context of sepsis, colitis, chronic alcohol induced liver failure, and respiratory failure. No evidence of acute process on CT of the head x2. Roving eye movements on examination are consistent with severe encephalopathy but are otherwise nonlocalizing. She does not have asterixis or other gross abnormal movements. Subclinical seizures probably unlikely. Plan Follow-up with results of EEG Continue supportive medical care Would attempt to obtain a brain MRI if clinically stable Please contact me if I may be of further assistance
[2017-07-06] MEDS ORDERED: POTASSIUM PHOS 3 MMOL/1 ML INFUSION IV STA (11:21)
[2017-07-06] MEDS ORDERED: POTASSIUM PHOSPHATE INJ 21 MMOL in SODIUM CHLORIDE 0.9% 500ML 500 ML IV ONE (11:45)
--- NOTE | 2017-07-06 12:04 | EEG Procedure Note ---
EEG Procedure Note Date of Service Jul 06, 2017. Start / End Times Start Time: 8:08 AM End Time: 8:28 AM Referring Physician Adarsh Horton History This is a 52-year-old female who is 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 in the ICU. EEG for further evaluation of possible seizure etiology. Home Medication List Scheduled Ipratropium-Albuterol (Combivent Respimat), 1 PUFF PO QID Losartan Potassium (Losartan Potassium), 50 MG PO DAILY Pantoprazole (Protonix), 40 MG PO DAILY Inpatient Medication List Current Inpatient Medications Medications (Trade) Dose Ordered Sig/Razia Route Start Time Stop Time Status Last Admin Dose Admin Pantoprazole Sodium 40 mg/ Syringe 10 ml @ 5 mls/min BID IV 06/27/17 09:00 07/27/17 08:59 07/06/17 09:34 5 MLS/MIN Thiamine HCl 100 mg/Syringe 10 ml @ 2 mls/min Q24H IV 06/28/17 11:00 07/28/17 10:59 07/06/17 10:54 2 MLS/MIN Folic Acid 1 mg/ Syringe 10 ml @ 5 mls/min Q24H IV 06/28/17 11:00 07/28/17 10:59 07/06/17 10:54 5 MLS/MIN Lorazepam (Ativan Inj) 1 mg ONE PRN IV 06/27/17 09:15 Ondansetron HCl (Zofran Inj) 4 mg Q6H PRN IV 06/27/17 17:46 07/27/17 17:45 Hydromorphone HCl (Dilaudid Inj) 1 mg Q3HWA PRN IV 06/29/17 09:15 07/13/17 09:14 06/30/17 20:36 1 MG Vancomycin HCl (Vancomycin Oral Soln) 250 mg Q6H PO 06/30/17 10:00 07/10/17 09:59 07/06/17 09:34 250 MG Albuterol/ Ipratropium (Duoneb) 3 ml Q4 PRN INH 07/01/17 05:30 07/31/17 05:29 Future Hold 07/01/17 10:06 3 ML Metronidazole 500 mg/Prmx 100 ml @ 100 mls/hr Q8H IV 07/01/17 10:00 07/07/17 09:59 07/06/17 09:34 100 MLS/HR Insulin Aspart (novoLOG ASPART) SLIDING SCALE HS SC 07/02/17 08:00 08/01/17 07:59 Future Hold Glucose (Glucose 40% Gel) 15-30 GRAMS 15 GRAMS... UD PRN PO 07/01/17 23:45 07/31/17 23:44 Glucose (Glucose Chew Tab) 4-8 Tablets 4 Tabl... UD PRN PO 07/01/17 23:45 07/31/17 23:44 Dextrose (Dextrose 50% 50ML Syringe) 25-50ML OF 50% DW IV FOR... UD PRN IV 07/01/17 23:45 07/31/17 23:44 Glucagon (Glucagon Inj) 1 mg UD PRN SQ 07/01/17 23:45 07/31/17 23:44 Albuterol (Ventolin Hfa Inhaler) 4 puffs Q4R INH 07/02/17 08:00 08/01/17 07:59 07/06/17 11:41 4 PUFFS Ipratropium [place] (Atrovent Hfa Inhaler) 4 puffs Q4R INH 07/02/17 08:00 08/01/17 07:59 07/06/17 11:41 4 PUFFS Heparin Sodium (Porcine) (Heparin Sq 5000 Unit/0.5ml) 5,000 unit Q8H SQ 07/02/17 14:00 08/01/17 13:59 07/06/17 06:39 5,000 UNIT Vancomycin HCl (Vancomycin Enema) 500 mg Q6H DE 07/02/17 20:00 07/12/17 19:59 Future hold 07/06/17 09:34 500 MG Artificial Tears (Lacri-Lube Oph Oint) 1 appln Q2H PRN OPB 07/02/17 21:45 08/01/17 21:44 Enteral Nutritional Formula (Peptamen 1.5) 1,000 ml UD PRN OG 07/04/17 11:00 08/03/17 10:59 07/06/17 01:57 1,000 ML Heparin Sodium (Porcine) (Heparin 10 Unit/ ml 5 ml Flush) 5 ml PRN PRN FLUSH 07/04/17 20:45 08/03/17 20:44 Methylprednisolone Sodium Succinate 40 mg/Syringe 0.64 ml @ 1.5 mls/min Q12H IV 07/05/17 20:00 08/04/17 19:59 07/06/17 09:34 1.5 MLS/MIN Magnesium Sulfate 1 gm/Prmx 100 ml @ 100 mls/hr Q1H IV 07/06/17 11:34 07/06/17 13:33 Potassium Phosphate 21 mmol/ Sodium Chloride 507 ml @ 88 mls/hr ONE ONCE IV 07/06/17 11:45 07/06/17 17:30 Description This is a 21 electrode EEG with a single channel dedicated to limited EKG. The electrodes were placed in accordance with the International 10-20 system. At the start of this recording the patient was in an 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 state. Background was poorly organized with no anterior to posterior gradient. Background was composed of low to moderate amplitude predominantly 4-6 Hz delta and theta frequencies with intermixed rare alpha frequencies. Intermittently every 3-4 seconds there was a slightly higher amplitude burst of delta with superimposed faster frequencies lasting less than a second, likely vent artifact. There was no state changes or sleep transients. Hyperventilation and photic stimulation were not done. Interpretation This is an abnormal routine EEG secondary to moderate to severe background disorganization and slowing There was no electrographic seizures or epileptiform discharges. Clinical Correlation This EEG indicates moderate to severe encephalopathy of nonspecific etiology. Periodic higher amplitude waveforms are likely artifact from mechanical ventilation
[2017-07-06] MEDS: MAGNESIUM SULFATE 1GM / D5W 1 GM in PREMIXED IN D5W 100 ML IV SCH ×2 (12:49→14:45)
--- NOTE | 2017-07-06 13:53 | DIAGNOSTIC IMAGING REPORT ---
CT SCAN OF THE ABDOMEN AND PELVIS WITHOUT IV CONTRAST CLINICAL HISTORY: Cirrhosis. Colitis. COMPARISON STUDY: Abdominal CT dated 06/29/2017. TECHNIQUE: CT scan of the abdomen and pelvis is performed from the lung bases to the proximal femora. Images are reviewed in the axial, sagittal, and coronal planes. IV contrast was not administered for this examination as per the referring clinician. Note that the examination was performed in significantly suboptimal fashion without oral and IV contrast. The examination is also degraded by motion artifact, and by streak artifact from the arms which could not be elevated above the abdomen. A dose lowering technique was utilized adhering to the principles of ALARA. CT DOSE: 1770.52 mGy.cm FINDINGS: Lung bases: The heart is normal in size and without pericardial effusion. There are small pleural effusions with dense bibasilar consolidation. Groundglass changes seen throughout both lung bases. Numerous calcified granulomas are seen at the lung bases. The tip of a PICC line terminates at the cavoatrial junction. Liver: The unenhanced liver is enlarged, measuring 26 cm in length. The liver demonstrates diffusely diminished attenuation consistent with severe hepatic steatosis. There is no intrahepatic biliary ductal dilatation. A 1.1 cm hyperdense nodule is suggested in the right lobe on image #212, possibly representing a small hemangioma. Gallbladder: Surgically absent noting clips in the gallbladder fossa. Spleen: Normal in size and attenuation. Pancreas: The pancreas is moderately atrophic. Mild peripancreatic stranding and fluid is suggested. Adrenal glands: Unremarkable. Kidneys: The unenhanced kidneys are no bowel obstruction is identified. Atrophic And without hydronephrosis. There are no renal calculi identified. There is no evidence of contour deforming renal mass lesion. Abdominal vasculature: The abdominal aorta is normal in course and caliber noting mild atherosclerotic calcification. Stomach and bowel: An enteric tube terminates in the distal stomach. There is mild sigmoid diverticulosis without CT evidence of acute diverticulitis. The appendix is not visualized. Peritoneum: There is a small volume of abdominopelvic ascites. No intraperitoneal free air is seen. Lymphadenopathy: None. Pelvic viscera: The bladder is partially decompressed around a Kovacs catheter. Foci of intraluminal gas are likely related to instrumentation. The uterus is surgically absent. Skeletal structures: The skeletal structures are osteopenic. No lytic or blastic lesions are seen. Soft tissues: There is diffuse anasarca of the body wall. IMPRESSION: 1. Suboptimal examination without oral and IV contrast. The examination is also degraded by streak and motion artifact. 2. There is diffuse anasarca of the body wall, which has increased from 06/29/2017. 3. Small pleural effusions with dense bibasilar consolidation. This could present atelectasis and/or pneumonia. Clinical correlation will be required. 4. Diffuse ground glass change is seen in the lower lobes. This could present a component of pulmonary edema versus an infectious/inflammatory pneumonitis. Again, clinical correlation will be required. 5. There is a small volume of abdominopelvic ascites, increased from 06/29/2017. 6. Hepatomegaly and severe hepatic steatosis. 7. Mild peripancreatic stranding and fluid is suggested. Correlate clinically and with serum amylase/lipase levels for evidence of pancreatitis. 8. Additional findings as above. Electronically signed by: Reg Ly M.D. 07/06/2017 1:52 PM Dictated Date/Time: 07/06/2017 1:19 PM
--- NOTE | 2017-07-06 14:14 | Critical Care Progress Note ---
Critical Care Progress Note Date of Service Jul 06, 2017. ICU Day ICU Day Number: [address] Bales Subjective Unable to obtain due to pt mental status or condition. Lengthy discussion with nursing. ON: Remained on CPAP at FiO2 of 60% and peep of 5. ABG was 7.35, CO2 of 29, HCO3 of 16, O2 of 94 and O2 sat of 97%. MS remained altered. Objective General: fully sedated, resting in bed KNITTER WIRE MESH: RASS score of -4 (deeply sedated; unarousable to vocal and tactile stimuli) HEENT: Scleral icterus, ET tube and OG tube Lungs: coarse breath sounds, scattered rhonchi CVS: RRR, normal S1, S2, no murmurs Skin: jaundiced Abdomen: +BS (hypoactive); less distended, no reaction to palpation (note: fully sedated), severe hepatomegaly (abdominal exam improved from yesterday) Extremities: 4+ pedal edema and 3+ edema in bilateral hands Assessment & Plan 52y/oF with severe sepsis secondary to likely C.diff vs. ischemic colitis. Now with persistent liver failure in the setting of alcoholic cirrhosis, improving respiratory failure/ARDS on mechanical ventilation (on volume assist, Tv 0.50L, peep 5, FiO2 50%; hoping to get off vent). Acidosis improved. Weaned off pressors and sedation. Last fentanyl dose > 18 hours ago. Tolerating trickle feeds. Mental status continues to be altered. CT head no acute IC pathology and no epileptiform activity on EEG. Consistent with moderate-severe encephalopathy likely in the setting of infection vs. cirrhosis. Ammonia normal at 22. LFTs continue to be elevated. PLAN: KNITTER WIRE MESH: This AM RASS score -4. Goal RASS score of -1 while on mechanical ventilation. Mental status continues to be altered despite being off sedation for now greater than [address] head showed no acute IC pathology and no epileptiform activity on EEG. Consistent with moderate-severe encephalopathy likely in the setting of infection vs. cirrhosis. Ammonia normal at 22. Neurology consulted - subclinical seizure unlikely, recommended MRI if clinically stable Off fentanyl since 07/05 Off Versed since 0500 07/04 Dced BIS monitor and Nimbex at 1200 on 07/03 CVS: BP normalized. 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 No intervention at this time. SMA/LISBET patent. Hypervolemic +33L PULM: Improve acute respiratory failure; on ARDSnet protocol. P and F ratio 157 Vent: On VC - RR 12; Tv: 0.5L; 50%FiO2; PEEP 5 Pulm Toilet: alubterol 4 puffs Q4H; Atrovent 4 puffs Q4H Methylpred 40mg Q12H (on meduri protocol 32 days) RENAL/METABOLIC: renal function at baseline Cr ~ 1; Cr today 1.2 Improved urine output in the setting of Lasix 20mg IV; rate - 0.42 ml/kg/hr ( 1050ml in 24 hours) Volume overloaded by +33L Diuresed further with Lasix 40mg IV once this AM ID: Sepsis 2/2 C. diff vs ischemic colitis and PNA. Blood culture from 07/01 no growth Fungal gram stain and culture - pending Sputum gram stain and culture - marisol albicans PNA -Dced Cefepime (received 5 days) Received IV vanc x 3 days Continue C.diff Abx regimen: Vanc PO day 6; Vanc NH day 4; Flagyl IV day 5 ENDO: off Insulin gtt; blood sugars in 160s-170s range Monitor BSGs No Insulin ordered at this time HEME: Anemia and platelet count slightly worse this AM; H/H this AM 8.6/27.1 from 9.2/29.[address] 91 from 113 yesterday No evidence of bleeding Heparin PF4 Ab - neg Monitor CBC Consider transfusing once Hgb < 7 Electrolytes: Low Ca 7.3 (corrected 8.6 given albumin of 1.8), Mag 1.6 and Phos 2 Ordered Mag Peslq5s Ordered Potassium Phosphate 21mmol Nutrition: Started trickle tube feeds of Peptamen 1.5 @10mls/hr per nutrition recommendations Vit C and Thiamine cocktail Folic Acid GI: will start trickle tube feeds Persistent liver failure; total bilirubin downtrended to 6.8 from 8.2 and direct bili from 8.1 to 6.9; AST increased to 67 and Alk phos to 243 this AM MELD score 20 (19.6% mortality risk); Child-Burns score of 11 (class C) Continue recurrent C.diff Colitis treatment: Vanc PO day 7; Vanc NH day 5; Flagyl IV day 6 Consulted surgery: high mortality risk for total colectomy at this time GI prophylaxis: Protonix 40mg IV BID IV access: Placed PICC line 07/05 Removed L femoral tri-lumen central venous cath and kyle 07/05 DVT Prophylaxis: Heparin 5000 units BID; SCDs PROGNOSIS: poor given high mortality in the setting of severe sepsis and multi- organ failure and poor baseline healthy Palliative care consulted Family Meeting: maintain current care plan, do not escalate care, would like to avoid surgery at this point; will reassess if condition worsens CCT: 45 minutes independent of procedures Thank you for including us in the care of this patient. Please refer to Dr. Bales's addendum for further recommendations. Resident Physician Supervision Note: I was present with Dr. Horton during the history and exam. I discussed the case with the resident and agree with the findings and plan as documented in the note. Any exceptions or clarifications are listed here: Later in the afternoon some increased PEEP required for recruitment. Repeat images reviewed. Because of increased WBCs and worsening effusion and basilar changes will cover for VAP. Documented By: Brice Bales Consults & Procedures Consultants: GI: Dr Joseph Vascular: Dr Baron General Surgery: Dr. Choe IV team for PICC line Procedures: 07/01/17: left femoral TLC 07/01/17: left femoral a-line 07/01/17: intubation Data Medications: Current Inpatient Medications Medications (Trade) Dose Ordered Sig/Razia Route Start Time Stop Time Status Last Admin Dose Admin Pantoprazole Sodium 40 mg/ Syringe 10 ml @ 5 mls/min BID IV 06/27/17 09:00 07/27/17 08:59 07/06/17 09:34 5 MLS/MIN Thiamine HCl 100 mg/Syringe 10 ml @ 2 mls/min Q24H IV 06/28/17 11:00 07/28/17 10:59 07/06/17 10:54 2 MLS/MIN Folic Acid 1 mg/ Syringe 10 ml @ 5 mls/min Q24H IV 06/28/17 11:00 07/28/17 10:59 07/06/17 10:54 5 MLS/MIN Lorazepam (Ativan Inj) 1 mg ONE PRN IV 06/27/17 09:15 Ondansetron HCl (Zofran Inj) 4 mg Q6H PRN IV 06/27/17 17:46 46/18 17:45 Hydromorphone HCl (Dilaudid Inj) 1 mg Q3HWA PRN IV 06/29/17 09:15 07/13/17 09:14 06/30/17 20:36 1 MG Vancomycin HCl (Vancomycin Oral Soln) 250 mg Q6H PO 06/30/17 10:00 07/10/17 09:59 07/06/17 09:34 250 MG Albuterol/ Ipratropium (Duoneb) 3 ml Q4 PRN INH 07/01/17 05:30 07/31/17 05:29 Future Hold 07/01/17 10:06 3 ML Metronidazole 500 mg/Prmx 100 ml @ 100 mls/hr Q8H IV 07/01/17 10:00 07/07/17 09:59 07/06/17 09:34 100 MLS/HR Insulin Aspart (novoLOG ASPART) SLIDING SCALE PCHS SC 07/02/17 08:00 08/01/17 07:59 Future Hold Glucose (Glucose 40% Gel) 15-30 GRAMS 15 GRAMS... UD PRN PO 07/01/17 23:45 07/31/17 23:44 Glucose (Glucose Chew Tab) 4-8 Tablets 4 Tabl... UD PRN PO 07/01/17 23:45 07/31/17 23:44 Dextrose (Dextrose 50% 50ML Syringe) 25-50ML OF 50% DW IV FOR... UD PRN IV 07/01/17 23:45 07/31/17 23:44 Glucagon (Glucagon Inj) 1 mg UD PRN SQ 07/01/17 23:45 07/31/17 23:44 Albuterol (Ventolin Hfa Inhaler) 4 puffs Q4R INH 07/02/17 08:00 08/01/17 07:59 07/06/17 11:41 4 PUFFS Ipratropium [place] (Atrovent Hfa Inhaler) 4 puffs Q4R INH 07/02/17 08:00 08/01/17 07:59 07/06/17 11:41 4 PUFFS Heparin Sodium (Porcine) (Heparin Sq 5000 Unit/0.5ml) 5,000 unit Q8H SQ 07/02/17 14:00 08/01/17 13:59 07/06/17 06:39 5,000 UNIT Vancomycin HCl (Vancomycin Enema) 500 mg Q6H NH 07/02/17 20:00 07/12/17 19:59 Future hold 07/06/17 09:34 500 MG Artificial Tears (Lacri-Lube Oph Oint) 1 appln Q2H PRN OPB 07/02/17 21:45 08/01/17 21:44 Enteral Nutritional Formula (Peptamen 1.5) 1,000 ml UD PRN OG 07/04/17 11:00 08/03/17 10:59 07/06/17 01:57 1,000 ML Heparin Sodium (Porcine) (Heparin 10 Unit/ ml 5 ml Flush) 5 ml PRN PRN FLUSH 07/04/17 20:45 08/03/17 20:44 Methylprednisolone Sodium Succinate 40 mg/Syringe 0.64 ml @ 1.5 mls/min Q12H IV 07/05/17 20:00 08/04/17 19:59 07/06/17 09:34 1.5 MLS/MIN Magnesium Sulfate 1 gm/Prmx 100 ml @ 100 mls/hr Q1H IV 07/06/17 11:34 07/06/17 13:33 07/06/17 12:49 100 MLS/HR Potassium Phosphate 21 mmol/ Sodium Chloride 507 ml @ 88 mls/hr ONE ONCE IV 07/06/17 11:45 07/06/17 17:30 07/06/17 12:49 88 MLS/HR I & O: 24hrs: Is: 2111cc; Os: 1400cc net + 711cc; UOP 1050cc rate = 0.42 cc/kg/hr Last BM 13th OG 350cc Vital Signs: Date Time Temp Pulse Resp B/P (MAP) Pulse Ox O2 Delivery O2 Flow Rate FiO2 07/06/17 12:01 36.7 106 28 119/68 (85) 90 Mechanical Ventilator 50 07/06/17 12:01 106 28 119/68 (101) 90 07/06/17 12:00 50 07/06/17 12:00 90 Mechanical Ventilator 50 07/06/17 11:41 50 07/06/17 11:01 104 30 113/67 (91) 92 07/06/17 11:01 104 30 113/67 (91) 92 3/16/18 11:01 104 30 113/67 (82) 92 Mechanical Ventilator 50 07/06/17 11:00 106 22 92 07/06/17 11:00 106 22 92 07/06/17 10:01 106 20 126/71 (89) 93 18 10:01 106 20 126/71 (89) 93 Mechanical Ventilator 60 07/06/17 10:01 106 20 126/71 (90) 93 07/06/17 10:00 60 07/06/17 10:00 106 20 93 07/06/17 09:36 107 0 135/77 (100) 95 18 09:36 107 20 135/77 (96) 95 Mechanical Ventilator 60 07/06/17 09:30 50 07/06/17 08:01 37.3 105 23 130/85 (100) 92 Mechanical Ventilator 60 07/06/17 08:01 105 23 130/85 (99) 92 07/06/17 08:00 92 Mechanical Ventilator 60 07/06/17 08:00 105 0 91 07/06/17 08:00 60 07/06/17 07:50 60 07/06/17 07:01 102 18 118/74 (92) 94 07/06/17 07:01 102 18 118/74 (89) 94 CPAP 60 07/06/17 07:00 102 17 94 07/06/17 06:00 102 17 119/72 (88) 94 CPAP 60 Mechanical Ventilator 07/06/17 06:00 102 17 94 07/06/17 05:00 102 17 94 07/06/17 04:00 103 19 94 07/06/17 04:00 CPAP 15.0 60 Mechanical Ventilator 07/06/17 04:00 37.1 103 19 121/92 (102) 94 CPAP 60 Mechanical Ventilator 07/06/17 04:00 103 19 94 07/06/17 04:00 60 07/06/17 03:59 60 07/06/17 03:00 106 19 94 07/06/17 02:00 107 18 126/74 (91) 94 CPAP 50 Mechanical Ventilator 07/06/17 02:00 107 0 94 07/06/17 01:00 108 19 94 07/06/17 00:01 109 19 123/71 (92) 94 07/05/17 23:59 60 07/05/17 23:59 CPAP 15.0 50 Mechanical Ventilator 07/05/17 23:53 37.1 07/05/17 23:38 60 07/05/17 23:00 60 07/05/17 23:00 107 20 94 07/05/17 22:08 37.4 108 18 113/68 (83) 94 Mechanical Ventilator 50 07/05/17 21:00 109 20 93 07/05/17 20:43 111 19 93 Mechanical Ventilator 60 07/05/17 20:01 108 16 115/65 (82) 95 07/05/17 20:00 60 07/05/17 20:00 107 16 95 07/05/17 19:01 108 16 113/67 (82) 95 07/05/17 19:00 50 07/05/17 19:00 108 16 95 07/05/17 19:00 37.3 107 16 113/67 (82) 95 Mechanical Ventilator 50 07/05/17 19:00 Mechanical Ventilator 50 07/05/17 18:01 106 15 104/75 (85) 94 07/05/17 18:01 106 15 104/75 (85) 94 Mechanical Ventilator 60 07/05/17 18:00 107 21 95 07/05/17 17:01 105 15 109/73 (85) 94 Mechanical Ventilator 60 07/05/17 17:01 105 15 109/73 (85) 94 07/05/17 17:00 105 15 94 07/05/17 16:34 60 07/05/17 16:01 37.0 97 16 104/71 (82) 94 Mechanical Ventilator 50 07/05/17 16:01 97 16 104/71 (82) 94 07/05/17 16:00 93 Mechanical Ventilator 50 07/05/17 16:00 50 07/05/17 16:00 97 16 94 07/05/17 15:00 98 16 93 Mechanical Ventilator 50 07/05/17 15:00 98 16 93 07/05/17 14:01 97 16 115/69 (84) 93 Mechanical Ventilator 50 Laboratory Results: Last 24 Hours Test 07/05/17 18:01 07/06/17 00:00 07/06/17 05:51 07/06/17 05:56 Bedside Glucose 164 mg/dl 163 mg/dl White Blood Count 27.14 K/uL Red Blood Count 2.57 M/uL Hemoglobin 8.6 g/dL Hematocrit 27.1 % Mean Corpuscular Volume 105.4 fL Mean Corpuscular Hemoglobin 33.5 pg Mean Corpuscular Hemoglobin Concent 31.7 g/dl Platelet Count 91 K/uL Mean Platelet Volume 11.4 fL RDW Standard Deviation 98.9 fL RDW Coefficient of Variation 26.4 % Nucleated RBC Absolute Count (auto) 1.61 K/uL Neutrophils % (Manual) 93.0 % Lymphocytes % (Manual) 0.9 % Monocytes % (Manual) 2.6 % Metamyelocytes % 0.9 % Myelocytes % 2.6 % Nucleated Red Blood Cells % 5.9 % Neutrophils # (Manual) 25.24 K/uL Total Absolute Neutrophils 25.24 K/uL Lymphocytes # (Manual) 0.24 K/uL Total Absolute Lymphocytes 0.24 K/uL Monocytes # (Manual) 0.71 K/uL Metamyelocytes # 0.24 K/uL Myelocytes # 0.71 K/uL Platelet Estimate DECREASED Hypochromasia PRESENT Basophilic Stippling 1+ Anisocytosis PRESENT Pappenheimer Bodies 1+ Sodium Level 141 mmol/L Potassium Level 4.2 mmol/L Chloride Level 110 mmol/L Carbon Dioxide Level 16 mmol/L Anion Gap 15.0 mmol/L Blood Urea Nitrogen 36 mg/dl Creatinine 1.16 mg/dl Est Creatinine Clear Calc Drug Dose 71.4 ml/min Estimated GFR () 62.7 Estimated GFR (Non- 54.1 BUN/Creatinine Ratio 31.1 Random Glucose 144 mg/dl Calcium Level 7.3 mg/dl Phosphorus Level 2.0 mg/dl Magnesium Level 1.6 mg/dl Total Bilirubin 6.8 mg/dl Direct Bilirubin 6.4 mg/dl Aspartate Amino Transf (AST/SGOT) 67 U/L Alanine Aminotransferase (ALT/SGPT) 22 U/L Alkaline Phosphatase 243 U/L Ammonia 22.0 umol/L Total Protein 5.1 gm/dl Albumin 1.8 gm/dl Blood Gas Sample Site R Radial Bedside Blood Gas pH (LAB) 7.35 Bedside Blood Gas pCO2 (LAB) 29 mmHg Bedside Blood Gas pO2 (LAB) 94 mmHg Bedside Blood Gas HCO3 (LAB) 16 meq/L Bedside Blood Gas Total CO2 17 mEq/l Bedside Blood Gas Base Excess (LAB) -10.0 meq/L Bedside Blood Gas O2 Saturation 97.0 % Leonidas Test Pass Oxygen Delivery Device Ventilator Bedside FiO2 60 % Blood Gas PEEP 5
--- NOTE | 2017-07-06 15:24 | DIAGNOSTIC IMAGING REPORT ---
CHEST ONE VIEW PORTABLE CLINICAL HISTORY: Intubation. COMPARISON STUDY: Chest radiograph July 06, 2017 6:50 AM. FINDINGS: Tip of nasogastric tube is below lower aspect of image but at least within the mid body of the stomach. Tip of endotracheal tube is 4.3 cm above the [place]. A right PICC is in place. There is no pneumothorax. Interstitial thickening and bilateral opacities persist. There may be small bilateral pleural effusions. IMPRESSION: 1. Satisfactory positioning of lines and tubes. 2. Persistent bilateral opacities and interstitial thickening which may reflect pneumonia or pulmonary edema. 3. Suspected small bilateral pleural fusions. No pneumothorax. Electronically signed by: Vick Mcginnis M.D. 07/06/2017 3:23 PM Dictated Date/Time: 07/06/2017 3:22 PM
[2017-07-06] MEDS: AZTREONAM IV 2,000 MG in DEXTROSE 5% 100ML 100 ML IV SCH (16:50)
[2017-07-06] MEDS: LEVOFLOXACIN / D5W 750 MG in PREMIXED IN D5W 150 ML IV SCH (16:50)
--- NOTE | 2017-07-06 17:14 | GASTROENTEROLOGY PROGRESS NOTE ---
DATE: 07/06/2017 Chart reviewed, patient examined. SUBJECTIVE: The patient continues on ventilation, 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 despite cessation of all sedative products. Cefepime has been off for approximately 1 day or so. REVIEW OF SYSTEMS: Unobtainable. LABORATORY STUDIES: Include white count which is 27.14 and up slightly from yesterday. Hemoglobin has drifted down to 8.6 from 9.2, platelets are 91,000. There is an increased total absolute neutrophil count. PHYSICAL EXAMINATION: VITAL SIGNS: Review of her vital signs show that she is afebrile and has remained so for several days. She is off pressors and blood pressure today was 133/78, respirations 20 on the ventilator requiring a PEEP, pulse 101, pulse ox 91% FIO2 is 50%. GENERAL: The patient is intubated on a ventilator. HEART: Normal S1, S2. LUNGS: The lungs show course sounds. ABDOMEN: Obese but soft without evidence of tense ascites or shifting dullness. There is significant pitting edema bilaterally +3 in the pretibial region. There are compression boots on. IMAGING DATA: CT scan of the abdomen today revealed no acute changes. There is a question of peripancreatic stranding with a peripancreatic fluid collection. Evidence of hepatomegaly and steatosis is noted. The small amount of ascites present and perhaps slightly increased from June 29 CT scan. NG tube in the distal stomach. The patient is receiving tube feeds. There is no abnormal lymphadenopathy. Liver is markedly engorged to 26 cm. IMPRESSION AND PLAN: Case discussed at length with Dr. Bales source of the rising white count is unclear, but occurring in the absence of fever. Culture is in progress, will obtain urine culture and empiric antibiotics aimed at a gram positive and gram negative coverage empirically will be started (patient is pen ALLERGIC WITH HIVES). The patient continues on vancomycin rectally, orally and Flagyl IV. If any suggestion that ascites is increasing, then paracentesis if obtainable may be reasonable to exclude an SBP. We will follow with you. Dr. Beck is covering this weekend for the GI service. [facility]ITALBrendan
[2017-07-06] MEDS: LINEZOLID / D5W 600 MG in PREMIXED IN D5W 300 ML IV SCH (20:13)
[2017-07-06 20:28] LABS: CALCIUM 7.2 mg/dl (8.5-10.1); CREATININE 1.13 mg/dl (0.60-1.20); PHOSPHORUS 3.2 mg/dl (2.5-4.9); POTASSIUM 4.4 mmol/L (3.5-5.1)
[2017-07-06 20:42] LABS: MEAN CORPUSCULAR HGB CONC 31.5 g/dl (32-36); NUCLEATED RED BLOOD CELL ABS 1.76 K/uL (0-0)
[2017-07-06 21:20] LABS: HEMOGLOBIN 8.5 g/dL (12.0-16.0); PLATELET COUNT 88 K/uL (130-400); RED CELL DISTRIBUTION WIDTH CV 26.3 % (11.5-14.5); RED CELL DISTRIBUTION WIDTH SD 100.2 fL (36.4-46.3); WHITE BLOOD COUNT 27.79 K/uL (4.8-10.8)
--- NOTE | 2017-07-06 22:32 | Progress Note ---
Subjective Date of Service: Jul 06, 2017. Subjective Patient is intubated and 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. Unable to obtain history Problem List Medical Problems: (1) Abdominal pain Status: Acute (2) Acute pancreatitis Status: Acute (3) Alcohol abuse Status: Acute (4) Alcohol intoxication Status: Acute (5) Anemia Status: Acute (6) Anemia Status: Acute (7) Biliary obstruction Status: Acute (8) C. difficile colitis Status: Acute (9) C. difficile diarrhea Status: Acute (10) Chest pain Status: Acute (11) Contusion of multiple sites Status: Acute (12) Dehydration Status: Acute (13) Dehydration Status: Acute (14) Encounter for smoking cessation counseling Status: Acute (15) Epigastric abdominal pain Status: Acute (16) Fall Status: Acute (17) Fall due to slipping on ice or snow Status: Acute (18) Fracture of left distal radius Status: Acute (19) Hypocalcemia Status: Acute (20) Hypomagnesemia Status: Acute (21) Hypomagnesemia Status: Acute (22) Hypotension Status: Acute (23) Lactic acidosis Status: Acute (24) Liver failure Status: Acute (25) Pancreatitis Status: Acute Review of Systems All Other Systems: Reviewed and Negative Objective Vital Signs Date Time Temp Pulse Resp B/P (MAP) Pulse Ox O2 Delivery O2 Flow Rate FiO2 07/06/17 22:00 101 17 127/76 (93) 94 Mechanical Ventilator 50 07/06/17 22:00 101 17 94 07/06/17 21:00 104 19 93 07/06/17 20:12 50 07/06/17 20:00 37.0 99 18 111/77 (88) 95 50 07/06/17 20:00 99 18 95 07/06/17 19:00 95 18 94 07/06/17 18:00 98 19 127/68 (87) 95 Mechanical Ventilator 50 07/06/17 17:45 50 07/06/17 16:00 94 Mechanical Ventilator 50 07/06/17 16:00 50 07/06/17 16:00 36.9 102 23 128/77 (94) 91 Mechanical Ventilator 50 07/06/17 15:00 50 07/06/17 14:35 50 07/06/17 14:12 101 20 133/78 (92) 91 07/06/17 14:00 103 20 133/78 (96) 91 Mechanical Ventilator 50 3/16/18 13:00 106 18 12:01 36.7 106 28 119/68 (85) 90 Mechanical Ventilator 50 18 12:01 106 28 119/68 (101) 90 18 12:00 50 18 12:00 90 Mechanical Ventilator 50 07/06/17 11:41 50 18 11:01 104 30 113/67 (91) 92 18 11:01 104 30 113/67 (91) 92 18 11:01 104 30 113/67 (82) 92 Mechanical Ventilator 50 07/06/17 11:00 106 22 92 18 11:00 106 22 92 18 10:01 106 20 126/71 (89) 93 18 10:01 106 20 126/71 (89) 93 Mechanical Ventilator 60 07/06/17 10:01 106 20 126/71 (90) 93 18 10:00 60 07/06/17 10:00 106 20 93 18 09:36 107 0 135/77 (100) 95 1618 09:36 107 20 135/77 (96) 95 Mechanical Ventilator 60 07/06/17 09:30 50 07/06/17 08:01 37.3 105 23 130/85 (100) 92 Mechanical Ventilator 60 07/06/17 08:01 105 23 130/85 (99) 92 07/06/17 08:00 92 Mechanical Ventilator 60 07/06/17 08:00 105 0 91 07/06/17 08:00 60 07/06/17 07:50 60 18 07:01 102 18 118/74 (92) 94 18 07:01 102 18 118/74 (89) 94 CPAP 60 18 07:00 102 17 94 18 06:00 102 17 119/72 (88) 94 CPAP 60 Mechanical Ventilator 07/06/17 06:00 102 17 94 18 05:00 102 17 94 18 04:00 103 19 94 18 04:00 CPAP 15.0 60 Mechanical Ventilator 07/06/17 04:00 37.1 103 19 121/92 (102) 94 CPAP 60 Mechanical Ventilator 3/16/18 04:00 103 19 94 3/16/18 04:00 60 07/06/17 03:59 60 07/06/17 03:00 106 19 94 07/06/17 02:00 107 18 126/74 (91) 94 CPAP 50 Mechanical Ventilator 07/06/17 02:00 107 0 94 07/06/17 01:00 108 19 94 07/06/17 00:01 109 19 123/71 (92) 94 07/05/17 23:59 60 07/05/17 23:59 CPAP 15.0 50 Mechanical Ventilator 07/05/17 23:53 37.1 07/05/17 23:38 60 07/05/17 23:00 60 07/05/17 23:00 107 20 94 Physical Exam Comments: General Appearance: no apparent distress, intubated Neck: supple, no adenopathy, no JVD, trachea midline Respiratory/Chest: chest non-tender, no respiratory distress, no accessory muscle use, improved Cardiovascular: regular rate, rhythm, no edema, no gallop, no JVD, no murmur Abdomen: no organomegaly, + abnormal bowel sounds (hypoactive), + distended, tense ascities noted Extremities: normal range of motion, non-tender, normal inspection, no pedal edema, no calf tenderness, pelvis stable 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, 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 Skin: normal color, warm/dry, no rash Laboratory Results Last 24 Hours Test 07/06/17 00:00 07/06/17 05:51 07/06/17 05:56 07/06/17 12:36 Bedside Glucose 163 mg/dl 174 mg/dl 176 mg/dl White Blood Count 27.14 K/uL Red Blood Count 2.57 M/uL Hemoglobin 8.6 g/dL Hematocrit 27.1 % Mean Corpuscular Volume 105.4 fL Mean Corpuscular Hemoglobin 33.5 pg Mean Corpuscular Hemoglobin Concent 31.7 g/dl Platelet Count 91 K/uL Mean Platelet Volume 11.4 fL RDW Standard Deviation 98.9 fL RDW Coefficient of Variation 26.4 % Nucleated RBC Absolute Count (auto) 1.61 K/uL Neutrophils % (Manual) 93.0 % Lymphocytes % (Manual) 0.9 % Monocytes % (Manual) 2.6 % Metamyelocytes % 0.9 % Myelocytes % 2.6 % Nucleated Red Blood Cells % 5.9 % Neutrophils # (Manual) 25.24 K/uL Total Absolute Neutrophils 25.24 K/uL Lymphocytes # (Manual) 0.24 K/uL Total Absolute Lymphocytes 0.24 K/uL Monocytes # (Manual) 0.71 K/uL Metamyelocytes # 0.24 K/uL Myelocytes # 0.71 K/uL Platelet Estimate DECREASED Hypochromasia PRESENT Basophilic Stippling 1+ Anisocytosis PRESENT Pappenheimer Bodies 1+ Sodium Level 141 mmol/L Potassium Level 4.2 mmol/L Chloride Level 110 mmol/L Carbon Dioxide Level 16 mmol/L Anion Gap 15.0 mmol/L Blood Urea Nitrogen 36 mg/dl Creatinine 1.16 mg/dl Est Creatinine Clear Calc Drug Dose 71.4 ml/min Estimated GFR () 62.7 Estimated GFR (Non- 54.1 BUN/Creatinine Ratio 31.1 Random Glucose 144 mg/dl Calcium Level 7.3 mg/dl Phosphorus Level 2.0 mg/dl Magnesium Level 1.6 mg/dl Total Bilirubin 6.8 mg/dl Direct Bilirubin 6.4 mg/dl Aspartate Amino Transf (AST/SGOT) 67 U/L Alanine Aminotransferase (ALT/SGPT) 22 U/L Alkaline Phosphatase 243 U/L Ammonia 22.0 umol/L Total Protein 5.1 gm/dl Albumin 1.8 gm/dl Blood Gas Sample Site R Radial Bedside Blood Gas pH (LAB) 7.35 Bedside Blood Gas pCO2 (LAB) 29 mmHg Bedside Blood Gas pO2 (LAB) 94 mmHg Bedside Blood Gas HCO3 (LAB) 16 meq/L Bedside Blood Gas Total CO2 17 mEq/l Bedside Blood Gas Base Excess (LAB) -10.0 meq/L Bedside Blood Gas O2 Saturation 97.0 % Leonidas Test Pass Oxygen Delivery Device Ventilator Bedside FiO2 60 % Blood Gas PEEP 5 Test 07/06/17 18:42 07/06/17 19:54 Bedside Glucose 179 mg/dl White Blood Count 27.79 K/uL Red Blood Count 2.50 M/uL Hemoglobin 8.5 g/dL Hematocrit 27.0 % Mean Corpuscular Volume 108.0 fL Mean Corpuscular Hemoglobin 34.0 pg Mean Corpuscular Hemoglobin Concent 31.5 g/dl Platelet Count 88 K/uL RDW Standard Deviation 100.2 fL RDW Coefficient of Variation 26.3 % Nucleated RBC Absolute Count (auto) 1.76 K/uL Neutrophils % (Manual) 88.6 % Lymphocytes % (Manual) 2.6 % Monocytes % (Manual) 3.5 % Metamyelocytes % 4.4 % Myelocytes % 0.9 % Nucleated Red Blood Cells % 6.4 % Neutrophils # (Manual) 24.62 K/uL Total Absolute Neutrophils 24.62 K/uL Lymphocytes # (Manual) 0.72 K/uL Total Absolute Lymphocytes 0.72 K/uL Monocytes # (Manual) 0.97 K/uL Metamyelocytes # 1.22 K/uL Myelocytes # 0.25 K/uL Platelet Estimate DECREASED Polychromasia 1+ Spherocytes 1+ Target Cells 1+ [place] Bodies 1+ Schistocytes 1+ Sodium Level 142 mmol/L Potassium Level 4.4 mmol/L Chloride Level 110 mmol/L Carbon Dioxide Level 18 mmol/L Anion Gap 14.0 mmol/L Blood Urea Nitrogen 40 mg/dl Creatinine 1.13 mg/dl Est Creatinine Clear Calc Drug Dose 73.3 ml/min Estimated GFR () 64.7 Estimated GFR (Non- 55.8 BUN/Creatinine Ratio 35.5 Random Glucose 156 mg/dl Calcium Level 7.2 mg/dl Phosphorus Level 3.2 mg/dl Magnesium Level 1.8 mg/dl Procalcitonin 1.67 ng/ml Assessment and Plan 52 yo female with history of alcohol abuse, cirrhosis, c diff colitis who presented with weakness, hypotension, bloody diarrhea, KEVIN, acidosis - Septic shock: suspected source is pneumonia, likely aspiration vs colitis Source of sepsis: unclear WBC today are worsening. Ascities getting worse per latest CT scan. In regards to colitis: Surgery is recommending possible total colectomy, however given her critical state and unclear that she may have more of a respiratory issue, pressors, bicarb drip. This procedure is being held for now. In regards to colitis, less distended abdomen. Pressors have been stopped follow up blood cultures drawn today continue IV Flagyl, Cefepime. Continue OK and PO Vanco. Held IV vanco Off pressors Start trickle feeding - Acute hypoxic respiratory failure, likely from ARDS intubated, ventilator support management per ICU ABG had decreased o2 of 60%. 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 MELD score is 20 - Lactic acidosis: likely from shock, monitor LA, fluid support - KEVIN: Cr is improved but urine output is not adequate 800ml out today despite 2600cc input via IV continue to monitor Cr q4, follow UO in gil metabolic acidosis appears to be improving. - Anemia: HB improved to above 8 stable. will continue to monitor h/o slow GI bleeding for weeks per family transfused 2 units PRBC initially, responded well, no further signs of bleeding - Hypokalemia: resolved, continue to monitor - Hypophosphatemia: low today, replace - Hypomagnesemia: low today, replace - Alcoholism, last drink was two days prior to admission place on withdrawal protocol, had some tremors on admission, resolved for time being thiamine and folate daily no signs of DT's - Hyperbilirubinemia: hepatic steatosis on imaging, likely developing cirrhosis with alcoholism history supportive care, continue to monitor, bili down to 8, INR is 1.5 mother will be decision maker, change to Level 5 DNR if heart would stop discussed held with RN and web production manager present Continued [facility] stay due to: multiple IV medications needed Discharge planning: uncertain
[2017-07-06] MEDS: MAGNESIUM OXIDE 400 MG TAB PO SCH (22:38)
[2017-07-07] VITALS (27 sets, daily range): BP systolic 108–142; BP diastolic 67–88; PULSE 97–111; TEMP 36.3–37.1; O2SAT 92–98
[2017-07-07] MEDS: METRONIDAZOLE / NSS 500 MG in PREMIXED NSS 100 ML IV SCH (01:20)
[2017-07-07] MEDS: AZTREONAM IV 2,000 MG in DEXTROSE 5% 100ML 100 ML IV SCH ×3 (01:20→16:55)
[2017-07-07] MEDS: VANCOMYCIN ENEMA PR SCH ×2 (02:28→07:43)
[2017-07-07] MEDS: MAGNESIUM OXIDE 400 MG TAB PO SCH (02:28)
[2017-07-07] MEDS: ALBUTEROL HFA 8 GM INHALER INH SCH ×6 (03:07→23:12)
[2017-07-07] MEDS: IPRATROPIUM BROMIDE HFA INHALER INH SCH ×6 (03:07→23:12)
[2017-07-07] MEDS: VANCOMYCIN HCL 250 MG/5 ML SOLN PO SCH ×4 (04:31→22:59)
[2017-07-07] MEDS: PEPTAMEN 1.5 CAL 1000ML BAG OG PRN (04:31)
[2017-07-07] MEDS: HEPARIN SOD 5000 UNIT/0.5 ML CARP SQ SCH ×3 (06:06→23:00)
[2017-07-07 06:26] LABS: HEMATOCRIT 26.9 % (37-47); HEMOGLOBIN 8.6 g/dL (12.0-16.0); MEAN CELL VOLUME 107.2 fL (80-100); MEAN CORPUSCULAR HEMOGLOBIN 34.3 pg (25-34); PLATELET COUNT 78 K/uL (130-400); RED CELL DISTRIBUTION WIDTH CV 26.5 % (11.5-14.5); RED CELL DISTRIBUTION WIDTH SD 99.1 fL (36.4-46.3); WHITE BLOOD COUNT 31.32 K/uL (4.8-10.8)
[2017-07-07 06:27] LABS: BASO % 0.7 %; BASO ABS # 0.21 K/uL (0-0.2); IG# 2.82 K/uL (0.00-0.02); LYMPH % 3.1 %; LYMPH ABS # 0.96 K/uL (1.2-3.4); MONO % 1.9 %; MONO ABS # 0.59 K/uL (0.11-0.59); NEUT % 85.3 %; NEUT ABS # 26.74 K/uL (1.4-6.5)
[2017-07-07 06:28] LABS: CALCIUM 7.3 mg/dl (8.5-10.1); CREATININE 1.14 mg/dl (0.60-1.20); PHOSPHORUS 2.3 mg/dl (2.5-4.9); POTASSIUM 4.5 mmol/L (3.5-5.1)
[2017-07-07] MEDS: METHYLPREDNISOLONE IV 40 MG in SYRINGE 0 ML IV SCH ×2 (07:42→21:18)
[2017-07-07] MEDS: LINEZOLID / D5W 600 MG in PREMIXED IN D5W 300 ML IV SCH ×2 (08:11→21:18)
[2017-07-07] MEDS: PANTOprazole INJ 40 MG in SYRINGE 0 ML IV SCH ×2 (08:11→21:18)
[2017-07-07] MEDS ORDERED: CISATRACURIUM BESYLATE IV SOLN 2 MG/ML 10 ML VIAL ONE ×2 (08:52→18:43)
--- NOTE | 2017-07-07 09:59 | Critical Care Progress Note ---
Critical Care Progress Note Date of Service Jul 07, 2017. ICU Day ICU Day Number: [address] Bales Subjective Unable to obtain due to pt mental status or condition. Lengthy discussion with nursing. ON: no acute events. Remained on volume control with RR 12; Tv 0.50L; Peep 10 and FiO2 of 50%. 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 ischemic colitis. Now with worsening respiratory failure/ARDS on mechanical ventilation (on PC 22 , RR: 10 peep 8, FiO2 40%). Started on Aztreonam, Linezolid, and Levofloxacin for concern of possible ventilator associated pneumonia given worsening imaging and clinical status on 07/06. Procal was also elevated at 1.67. Persistent liver failure in the setting of alcoholic cirrhosis. Tolerating trickle feeds. Acidosis improved. Weaned off pressors and sedation. Mental status continues to be altered. CT head no acute IC pathology and no epileptiform activity on EEG. Consistent with moderate-severe encephalopathy likely in the setting of infection vs. cirrhosis. Ammonia normal at 22. LFTs continue to be elevated. PLAN: CENTRAL SUPPLY TECHNICIAN: This AM RASS score -4. Goal RASS score of -1 while on mechanical ventilation. Mental status continues to be altered despite being off sedation since 07/05. CT head showed no acute IC pathology and no epileptiform activity on EEG. Consistent with moderate-severe encephalopathy likely in the setting of infection vs. cirrhosis. Ammonia normal at 22. Neurology consulted - subclinical seizure unlikely, recommended MRI if clinically stable Off fentanyl since 07/05 Off Versed since 0500 07/04 Dced BIS monitor and Nimbex at 1200 on 07/03 CVS: BP normalized. 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 No intervention at this time. SMA/LISBET patent. Hypervolemic +33L PULM: Stable/worsening acute respiratory failure; on ARDSnet protocol. P and F ratio 157 yesterday Vent: On PC 22, RR: 10 peep 8, FiO2 40% Pulm Toilet: alubterol 4 puffs Q4H; Atrovent 4 puffs Q4H Methylpred 40mg Q12H (on meduri protocol 32 days) RENAL/METABOLIC: renal function at baseline Cr ~ 1; Cr today 1.2 Improving urine output in the setting of Lasix 40mg IV yesterday; rate - 0.66 ml /kg/hr (1650ml in 24 hours) Volume overloaded by +33L Given Lasix x 2 ID: Sepsis 2/2 C. diff vs ischemic colitis and PNA; Concern for worsening PNA ( possibly ventilator associated PNA). Abdominal CT 07/06: small pleural effusion and dense bibasilar consolidation; diffuse ground glass; diffuse anasarca body wall increased from 06/29; small volume of amniopelvic ascites increased from 06/29; hepatomegaly with severe hepatic steatosis; mild peripancreatic stranding/fluid. CXR 07/06: bilateral opacity and interstitial thickening; small bilateral pulmonary effusions; no pneumothorax procal 1.67 on 07/06 Blood culture from 07/01 no growth Fungal gram stain and culture - pending Sputum gram stain and culture - marisol albicans Continue C.diff Abx regimen: Vanc PO day 6; Vanc MS day 4; Flagyl IV day 5 Started on Aztreonam, Linezolid, and Levofloxacin on 07/06, day 2 Received Cefepime x 5 days Received IV vanc x 3 days ENDO: off Insulin gtt; blood sugars in 160s-170s range Monitor BSGs No Insulin ordered at this time HEME: Anemia stable and platelet count worse this AM at 78 from 88; H/H this AM 8.6/26.9 from 8.5/27. No evidence of bleeding Heparin PF4 Ab - neg Monitor CBC Consider transfusing once Hgb < 7 Electrolytes: Low Ca 7.3 (corrected 8.6 given albumin of 1.8), Mag 1.7 and Phos 2.3 Ordered Mag Oxide 2g Ordered Potassium Phosphate 15mmol Nutrition: Started trickle tube feeds of Peptamen 1.5 @10mls/hr per nutrition recommendations Vit C and Thiamine cocktail Folic Acid GI: tolerating trickle tube feeds Persistent liver failure; total bilirubin downtrended to 6.8 from 8.2 and direct bili from 8.1 to 6.9; AST increased to 67 and Alk phos to 243 on 07/06 MELD score 20 (19.6% mortality risk); Child-Burns score of 11 (class C) based on 07/06 labs Continue recurrent C.diff Colitis treatment: Vanc PO day 8; Vanc MS day 6; Flagyl IV day 7 Consulted surgery: high mortality risk for total colectomy at this time GI prophylaxis: Protonix 40mg IV BID IV access: Placed R arm PICC line 07/05 Removed L femoral tri-lumen central venous cath and kyle 07/05 DVT Prophylaxis: Heparin 5000 units BID; SCDs PROGNOSIS: poor given high mortality in the setting of severe sepsis and multi- organ failure and poor baseline healthy Palliative care consulted Family Meeting: maintain current care plan, do not escalate care, would like to avoid surgery at this point; will reassess if condition worsens CCT: 45 minutes independent of procedures Thank you for including us in the care of this patient. Please refer to Dr. Bales's addendum for further recommendations. Resident Physician Supervision Note: I was present with Dr. Horton during the history and exam. I discussed the case with the resident and agree with the findings and plan as documented in the note. Any exceptions or clarifications are listed here: ET tube changed. Mode to PC with better tolerance. Perhaps some correctional treatment specialist WBCs noted. Triple antibiotics for VAP. Culture sent. Liver dysfunction and 3rd spacing substantial. Documented By: Brice Bales Consults & Procedures Consultants: GI: Dr Joseph Vascular: Dr Baron General Surgery: Dr. Choe IV team for PICC line Procedures: 07/01/17: left femoral TLC 07/01/17: left femoral a-line 07/01/17: intubation Data Medications: Current Inpatient Medications Medications (Trade) Dose Ordered Sig/Razia Route Start Time Stop Time Status Last Admin Dose Admin Pantoprazole Sodium 40 mg/ Syringe 10 ml @ 5 mls/min BID IV 06/27/17 09:00 07/27/17 08:59 07/07/17 08:11 5 MLS/MIN Thiamine HCl 100 mg/Syringe 10 ml @ 2 mls/min Q24H IV 06/28/17 11:00 07/28/17 10:59 07/06/17 10:54 2 MLS/MIN Folic Acid 1 mg/ Syringe 10 ml @ 5 mls/min Q24H IV 06/28/17 11:00 07/28/17 10:59 07/06/17 10:54 5 MLS/MIN Lorazepam (Ativan Inj) 1 mg ONE PRN IV 06/27/17 09:15 Ondansetron HCl (Zofran Inj) 4 mg Q6H PRN IV 06/27/17 17:46 07/27/17 17:45 Hydromorphone HCl (Dilaudid Inj) 1 mg Q3HWA PRN IV 06/29/17 09:15 07/13/17 09:14 06/30/17 20:36 1 MG Vancomycin HCl (Vancomycin Oral Soln) 250 mg Q6H PO 06/30/17 10:00 07/10/17 09:59 07/07/17 04:31 250 MG Albuterol/ Ipratropium (Duoneb) 3 ml Q4 PRN INH 07/01/17 05:30 07/31/17 05:29 Future Hold 07/01/17 10:06 3 ML Metronidazole 500 mg/Prmx 100 ml @ 100 mls/hr Q8H IV 07/01/17 10:00 07/07/17 09:59 07/07/17 01:20 100 MLS/HR Insulin Aspart (novoLOG ASPART) SLIDING SCALE [facility] 07/02/17 08:00 08/01/17 07:59 Future Hold Glucose (Glucose 40% Gel) 15-30 GRAMS 15 GRAMS... UD PRN PO 07/01/17 23:45 07/31/17 23:44 Glucose (Glucose Chew Tab) 4-8 Tablets 4 Tabl... UD PRN PO 07/01/17 23:45 07/31/17 23:44 Dextrose (Dextrose 50% 50ML Syringe) 25-50ML OF 50% DW IV FOR... UD PRN IV 07/01/17 23:45 07/31/17 23:44 Glucagon (Glucagon Inj) 1 mg UD PRN SQ 07/01/17 23:45 07/31/17 23:44 Albuterol (Ventolin Hfa Inhaler) 4 puffs Q4R INH 07/02/17 08:00 08/01/17 07:59 07/07/17 03:07 4 PUFFS Ipratropium [place] (Atrovent Hfa Inhaler) 4 puffs Q4R INH 07/02/17 08:00 08/01/17 07:59 07/07/17 03:07 4 PUFFS Heparin Sodium (Porcine) (Heparin Sq 5000 Unit/0.5ml) 5,000 unit Q8H SQ 07/02/17 14:00 08/01/17 13:59 07/07/17 06:06 5,000 UNIT Vancomycin HCl (Vancomycin Enema) 500 mg Q6H MS 07/02/17 20:00 07/12/17 19:59 Future hold 07/07/17 07:43 500 MG Artificial Tears (Lacri-Lube Oph Oint) 1 appln Q2H PRN OPB 07/02/17 21:45 08/01/17 21:44 Enteral Nutritional Formula (Peptamen 1.5) 1,000 ml UD PRN OG 07/04/17 11:00 08/03/17 10:59 07/07/17 04:31 1,000 ML Heparin Sodium (Porcine) (Heparin 10 Unit/ ml 5 ml Flush) 5 ml PRN PRN FLUSH 07/04/17 20:45 08/03/17 20:44 Methylprednisolone Sodium Succinate 40 mg/Syringe 0.64 ml @ 1.5 mls/min Q12H IV 07/05/17 20:00 08/04/17 19:59 07/07/17 07:42 1.5 MLS/MIN Linezolid 600 mg/ Prmx 300 ml @ 300 mls/hr Q12 IV 07/06/17 21:00 07/13/17 20:59 07/07/17 08:11 300 MLS/HR Levofloxacin 750 mg/Prmx 150 ml @ 100 mls/hr Q24H IV 07/06/17 17:00 07/13/17 16:59 07/06/17 16:50 100 MLS/HR Aztreonam 2000 mg/ Dextrose 110 ml @ 100 mls/hr Q8H IV 3/16/18 17:00 07/13/17 16:59 07/07/17 08:11 100 MLS/HR I & O: 24hr: Is/Os: 2383cc/1650cc +73cc; UOP 1650cc rate = 0.66 cc/kg/hr BM x 1 Vital Signs: Date Time Temp Pulse Resp B/P (MAP) Pulse Ox O2 Delivery O2 Flow Rate FiO2 07/07/17 08:00 50 07/07/17 08:00 36.3 111 21 130/72 (91) 95 Mechanical Ventilator 50 07/07/17 08:00 Mechanical Ventilator 50 07/07/17 08:00 109 19 95 07/07/17 07:45 50 07/07/17 07:00 110 20 94 07/07/17 06:00 109 19 132/87 (102) 95 Mechanical Ventilator 50 07/07/17 06:00 109 19 95 07/07/17 05:01 50 07/07/17 05:00 107 18 95 07/07/17 04:00 107 18 94 07/07/17 04:00 36.9 107 18 138/88 (105) 94 Mechanical Ventilator 50 07/07/17 04:00 50 07/07/17 04:00 Mechanical Ventilator 50 07/07/17 03:00 106 18 94 07/07/17 02:16 50 07/07/17 02:00 103 17 142/81 (101) 94 Mechanical Ventilator 50 07/07/17 02:00 103 17 94 07/07/17 01:00 97 14 95 07/07/17 00:01 103 18 126/79 (100) 94 07/07/17 00:01 37.1 103 18 126/79 (95) 94 Mechanical Ventilator 50 07/06/17 23:59 Mechanical Ventilator 50 07/06/17 23:59 50 07/06/17 23:00 102 18 95 07/06/17 23:00 50 07/06/17 22:00 101 17 127/76 (93) 94 Mechanical Ventilator 50 07/06/17 22:00 101 17 94 07/06/17 21:00 104 19 93 07/06/17 20:12 50 07/06/17 20:00 37.0 99 18 111/77 (88) 95 50 07/06/17 20:00 50 07/06/17 20:00 Mechanical Ventilator 50 07/06/17 20:00 99 18 95 07/06/17 19:00 95 18 94 18 18:00 98 19 127/68 (87) 95 Mechanical Ventilator 50 07/06/17 17:45 50 07/06/17 16:00 94 Mechanical Ventilator 50 07/06/17 16:00 50 07/06/17 16:00 36.9 102 23 128/77 (94) 91 Mechanical Ventilator 50 07/06/17 15:00 50 07/06/17 14:35 50 07/06/17 14:12 101 20 133/78 (92) 91 07/06/17 14:00 103 20 133/78 (96) 91 Mechanical Ventilator 50 07/06/17 13:00 106 07/06/17 12:01 36.7 106 28 119/68 (85) 90 Mechanical Ventilator 50 07/06/17 12:01 106 28 119/68 (101) 90 07/06/17 12:00 50 07/06/17 12:00 90 Mechanical Ventilator 50 07/06/17 11:41 50 07/06/17 11:01 104 30 113/67 (91) 92 07/06/17 11:01 104 30 113/67 (91) 92 07/06/17 11:01 104 30 113/67 (82) 92 Mechanical Ventilator 50 07/06/17 11:00 106 22 92 07/06/17 11:00 106 22 92 07/06/17 10:01 106 20 126/71 (89) 93 07/06/17 10:01 106 20 126/71 (89) 93 Mechanical Ventilator 60 07/06/17 10:01 106 20 126/71 (90) 93 07/06/17 10:00 60 07/06/17 10:00 106 20 93 07/06/17 09:36 107 0 135/77 (100) 95 07/06/17 09:36 107 20 135/77 (96) 95 Mechanical Ventilator 60 07/06/17 09:30 50 Laboratory Results: Last 24 Hours Test 07/06/17 12:36 07/06/17 18:42 07/06/17 19:54 07/07/17 00:17 Bedside Glucose 176 mg/dl 179 mg/dl 168 mg/dl White Blood Count 27.79 K/uL Red Blood Count 2.50 M/uL Hemoglobin 8.5 g/dL Hematocrit 27.0 % Mean Corpuscular Volume 108.0 fL Mean Corpuscular Hemoglobin 34.0 pg Mean Corpuscular Hemoglobin Concent 31.5 g/dl Platelet Count 88 K/uL RDW Standard Deviation 100.2 fL RDW Coefficient of Variation 26.3 % Nucleated RBC Absolute Count (auto) 1.76 K/uL Neutrophils % (Manual) 88.6 % Lymphocytes % (Manual) 2.6 % Monocytes % (Manual) 3.5 % Metamyelocytes % 4.4 % Myelocytes % 0.9 % Nucleated Red Blood Cells % 6.4 % Neutrophils # (Manual) 24.62 K/uL Total Absolute Neutrophils 24.62 K/uL Lymphocytes # (Manual) 0.72 K/uL Total Absolute Lymphocytes 0.72 K/uL Monocytes # (Manual) 0.97 K/uL Metamyelocytes # 1.22 K/uL Myelocytes # 0.25 K/uL Platelet Estimate DECREASED Polychromasia 1+ Spherocytes 1+ Target Cells 1+ Gruber-[place] Bodies 1+ Schistocytes 1+ Sodium Level 142 mmol/L Potassium Level 4.4 mmol/L Chloride Level 110 mmol/L Carbon Dioxide Level 18 mmol/L Anion Gap 14.0 mmol/L Blood Urea Nitrogen 40 mg/dl Creatinine 1.13 mg/dl Est Creatinine Clear Calc Drug Dose 73.3 ml/min Estimated GFR () 64.7 Estimated GFR (Non- 55.8 BUN/Creatinine Ratio 35.5 Random Glucose 156 mg/dl Calcium Level 7.2 mg/dl Phosphorus Level 3.2 mg/dl Magnesium Level 1.8 mg/dl Procalcitonin 1.67 ng/ml Test 07/07/17 05:37 07/07/17 05:40 White Blood Count 31.32 K/uL Red Blood Count 2.51 M/uL Hemoglobin 8.6 g/dL Hematocrit 26.9 % Mean Corpuscular Volume 107.2 fL Mean Corpuscular Hemoglobin 34.3 pg Mean Corpuscular Hemoglobin Concent 32.0 g/dl Platelet Count 78 K/uL Neutrophils (%) (Auto) 85.3 % Lymphocytes (%) (Auto) 3.1 % Monocytes (%) (Auto) 1.9 % Eosinophils (%) (Auto) 0.0 % Basophils (%) (Auto) 0.7 % Neutrophils # (Auto) 26.74 K/uL Lymphocytes # (Auto) 0.96 K/uL Monocytes # (Auto) 0.59 K/uL Eosinophils # (Auto) 0.00 K/uL Basophils # (Auto) 0.21 K/uL RDW Standard Deviation 99.1 fL RDW Coefficient of Variation 26.5 % Immature Granulocyte % (Auto) 9.0 % Immature Granulocyte # (Auto) 2.82 K/uL Nucleated RBC Absolute Count (auto) 2.60 K/uL Nucleated Red Blood Cells % 8.3 % Toxic Granulation 1+ Platelet Estimate DECREASED Polychromasia 1+ Anisocytosis PRESENT Tear Drop Cells 1+ Gruber-[place] Bodies 1+ Sodium Level 141 mmol/L Potassium Level 4.5 mmol/L Chloride Level 110 mmol/L Carbon Dioxide Level 19 mmol/L Anion Gap 12.0 mmol/L Blood Urea Nitrogen 42 mg/dl Creatinine 1.14 mg/dl Est Creatinine Clear Calc Drug Dose 73.2 ml/min Estimated GFR () 64.0 Estimated GFR (Non- 55.2 BUN/Creatinine Ratio 37.2 Random Glucose 159 mg/dl Calcium Level 7.3 mg/dl Phosphorus Level 2.3 mg/dl Magnesium Level 1.7 mg/dl Bedside Glucose 172 mg/dl
--- NOTE | 2017-07-07 10:09 | Anesthesiology Progress Note ---
Anesthesia Progress Note Date of Service Jul 07, 2017. Progress Notes I was called by the manager trust to exchange an endotracheal tube. The manager trust believed the pt had a tear in the endotracheal tube cuff. The pt was placed on 100% FiO2 and 10mg of IV cisatracurium was administered. Using a glidescope for visual assistance, I attempted to exchange the endotracheal tube over a tube exchanger. Despite adequate visualization, the endotracheal tube was getting caught on the pt's arytenoids. The tube exchanger was removed and a styleted 8.0 endotracheal tube was easily passed through the patient's vocal cords. The endotracheal tube was taped at 24cm with + ETCO2 and B/L breath sounds. The intubation was atraumatic with 1 attempt. The pt's vital signs were stable throughout the procedure. Upon examination of the previous endotracheal tube, there was no tear in the the cuff. Care was returned to the ICU team.
[2017-07-07] MEDS ORDERED: POTASSIUM PHOS 3 MMOL/1 ML INFUSION IV STA (10:35)
[2017-07-07] MEDS ORDERED: POTASSIUM PHOSPHATE INJ 15 MMOL in SODIUM CHLORIDE 0.9% 250ML 250 ML IV ONE (11:00)
[2017-07-07] MEDS: MAGNESIUM SULFATE 1GM / D5W 1 GM in PREMIXED IN D5W 100 ML IV SCH ×2 (11:08→12:04)
[2017-07-07] MEDS: FoLIC ACID INJ 1 MG in SYRINGE 9.8 ML IV SCH (11:24)
[2017-07-07] MEDS: THIAMINE HCL INJ 100 MG in SYRINGE 9 ML IV SCH (11:24)
--- NOTE | 2017-07-07 14:42 | Gastroenterology Progress Note ---
Progress Note Date of Service: Jul 07, 2017 Subjective Pt evaluation today including: physical exam, chart review, lab review, review of studies, conversation w/ outside sales consultant (discussion of case with repatcher), review of inpatient medication list CC History from nurse, chart and repatcher. HPI: Pt on vent and nonresponsive. Per nurse tolerating trickle tube feeds and no stools since yesterday. Pt nonresponsive for me and for nurse. Review of Systems ROS unobtainabl, pt on vent and non responsive Medications Current Inpatient Medications Medications (Trade) Dose Ordered Sig/Razia Route Start Time Stop Time Status Last Admin Dose Admin Pantoprazole Sodium 40 mg/ Syringe 10 ml @ 5 mls/min BID IV 06/27/17 09:00 07/27/17 08:59 07/07/17 08:11 5 MLS/MIN Thiamine HCl 100 mg/Syringe 10 ml @ 2 mls/min Q24H IV 06/28/17 11:00 07/28/17 10:59 07/07/17 11:24 2 MLS/MIN Folic Acid 1 mg/ Syringe 10 ml @ 5 mls/min Q24H IV 06/28/17 11:00 07/28/17 10:59 07/07/17 11:24 5 MLS/MIN Lorazepam (Ativan Inj) 1 mg ONE PRN IV 06/27/17 09:15 Ondansetron HCl (Zofran Inj) 4 mg Q6H PRN IV 06/27/17 17:46 07/27/17 17:45 Hydromorphone HCl (Dilaudid Inj) 1 mg Q3HWA PRN IV 06/29/17 09:15 07/13/17 09:14 06/30/17 20:36 1 MG Vancomycin HCl (Vancomycin Oral Soln) 250 mg Q6H PO 06/30/17 10:00 07/10/17 09:59 07/07/17 09:43 250 MG Albuterol/ Ipratropium (Duoneb) 3 ml Q4 PRN INH 07/01/17 05:30 07/31/17 05:29 Future Hold 07/01/17 10:06 3 ML Insulin Aspart (novoLOG ASPART) SLIDING SCALE HS SC 07/02/17 08:00 08/01/17 07:59 Future Hold Glucose (Glucose 40% Gel) 15-30 GRAMS 15 GRAMS... UD PRN PO 07/01/17 23:45 07/31/17 23:44 Glucose (Glucose Chew Tab) 4-8 Tablets 4 Tabl... UD PRN PO 07/01/17 23:45 07/31/17 23:44 Dextrose (Dextrose 50% 50ML Syringe) 25-50ML OF 50% DW IV FOR... UD PRN IV 07/01/17 23:45 07/31/17 23:44 Glucagon (Glucagon Inj) 1 mg UD PRN SQ 07/01/17 23:45 07/31/17 23:44 Albuterol (Ventolin Hfa Inhaler) 4 puffs Q4R INH 07/02/17 08:00 08/01/17 07:59 07/07/17 11:36 4 PUFFS Ipratropium [place] (Atrovent Hfa Inhaler) 4 puffs Q4R INH 07/02/17 08:00 08/01/17 07:59 07/07/17 11:36 4 PUFFS Heparin Sodium (Porcine) (Heparin Sq 5000 Unit/0.5ml) 5,000 unit Q8H SQ 07/02/17 14:00 08/01/17 13:59 07/07/17 13:36 5,000 UNIT Artificial Tears (Lacri-Lube Oph Oint) 1 appln Q2H PRN OPB 07/02/17 21:45 08/01/17 21:44 Enteral Nutritional Formula (Peptamen 1.5) 1,000 ml UD PRN OG 07/04/17 11:00 08/03/17 10:59 07/07/17 04:31 1,000 ML Heparin Sodium (Porcine) (Heparin 10 Unit/ ml 5 ml Flush) 5 ml PRN PRN FLUSH 07/04/17 20:45 08/03/17 20:44 Methylprednisolone Sodium Succinate 40 mg/Syringe 0.64 ml @ 1.5 mls/min Q12H IV 07/05/17 20:00 08/04/17 19:59 07/07/17 07:42 1.5 MLS/MIN Linezolid 600 mg/ Prmx 300 ml @ 300 mls/hr Q12 IV 07/06/17 21:00 07/13/17 20:59 07/07/17 08:11 300 MLS/HR Levofloxacin 750 mg/Prmx 150 ml @ 100 mls/hr Q24H IV 07/06/17 17:00 07/13/17 16:59 07/06/17 16:50 100 MLS/HR Aztreonam 2000 mg/ Dextrose 110 ml @ 100 mls/hr Q8H IV 07/06/17 17:00 07/13/17 16:59 07/07/17 08:11 100 MLS/HR Insulin Aspart (novoLOG ASPART) SLIDING SCALE G... ACHS SC 07/07/17 16:00 08/06/17 15:59 Objective Vital Signs Date Time Temp Pulse Resp B/P (MAP) Pulse Ox O2 Delivery O2 Flow Rate FiO2 07/07/17 14:00 104 20 97 07/07/17 14:00 105 28 118/77 (91) 97 Mechanical Ventilator 40 07/07/17 13:00 104 98 07/07/17 12:00 40 07/07/17 12:00 36.8 106 21 118/73 (88) 94 Mechanical Ventilator 40 07/07/17 12:00 Mechanical Ventilator 50 07/07/17 12:00 105 20 94 07/07/17 11:36 40 07/07/17 11:01 107 16 118/72 (93) 95 07/07/17 11:00 107 20 95 07/07/17 10:00 108 21 93 07/07/17 10:00 108 21 111/67 (82) 93 Mechanical Ventilator 40 07/07/17 09:00 111 20 92 07/07/17 08:00 50 07/07/17 08:00 36.3 111 21 130/72 (91) 95 Mechanical Ventilator 50 07/07/17 08:00 Mechanical Ventilator 50 07/07/17 08:00 109 19 95 07/07/17 07:45 50 07/07/17 07:00 110 20 94 07/07/17 06:00 109 19 132/87 (102) 95 Mechanical Ventilator 50 07/07/17 06:00 109 19 95 07/07/17 05:01 50 07/07/17 05:00 107 18 95 07/07/17 04:00 107 18 94 07/07/17 04:00 36.9 107 18 138/88 (105) 94 Mechanical Ventilator 50 07/07/17 04:00 50 07/07/17 04:00 Mechanical Ventilator 50 07/07/17 03:00 106 18 94 07/07/17 02:16 50 07/07/17 02:00 103 17 142/81 (101) 94 Mechanical Ventilator 50 07/07/17 02:00 103 17 94 07/07/17 01:00 97 14 95 07/07/17 00:01 103 18 126/79 (100) 94 07/07/17 00:01 37.1 103 18 126/79 (95) 94 Mechanical Ventilator 50 07/06/17 23:59 Mechanical Ventilator 50 07/06/17 23:59 50 07/06/17 23:00 102 18 95 07/06/17 23:00 50 07/06/17 22:00 101 17 127/76 (93) 94 Mechanical Ventilator 50 07/06/17 22:00 101 17 94 07/06/17 21:00 104 19 93 07/06/17 20:12 50 07/06/17 20:00 37.0 99 18 111/77 (88) 95 50 07/06/17 20:00 50 07/06/17 20:00 Mechanical Ventilator 50 07/06/17 20:00 99 18 95 07/06/17 19:00 95 18 94 07/06/17 18:00 98 19 127/68 (87) 95 Mechanical Ventilator 50 07/06/17 17:45 50 07/06/17 16:00 94 Mechanical Ventilator 50 07/06/17 16:00 50 07/06/17 16:00 36.9 102 23 128/77 (94) 91 Mechanical Ventilator 50 07/06/17 15:00 50 07/06/17 14:35 50 Physical Exam General Appearance: WD/WN, no apparent distress Respiratory/Chest: + pertinent finding (pt on vent, coarse crackles) Cardiovascular: regular rate, rhythm, no murmur Abdomen: normal bowel sounds, non tender, soft, no pulsatile mass, + hepatomegaly Neurologic/Psych: + pertinent finding (non responsive on vent. ) Skin: warm/dry Laboratory Results Last 24 Hours Test 07/06/17 18:42 07/06/17 19:54 07/07/17 00:17 07/07/17 05:37 Bedside Glucose 179 mg/dl 168 mg/dl White Blood Count 27.79 K/uL 31.32 K/uL Red Blood Count 2.50 M/uL 2.51 M/uL Hemoglobin 8.5 g/dL 8.6 g/dL Hematocrit 27.0 % 26.9 % Mean Corpuscular Volume 108.0 fL 107.2 fL Mean Corpuscular Hemoglobin 34.0 pg 34.3 pg Mean Corpuscular Hemoglobin Concent 31.5 g/dl 32.0 g/dl Platelet Count 88 K/uL 78 K/uL RDW Standard Deviation 100.2 fL 99.1 fL RDW Coefficient of Variation 26.3 % 26.5 % Nucleated RBC Absolute Count (auto) 1.76 K/uL 2.60 K/uL Neutrophils % (Manual) 88.6 % Lymphocytes % (Manual) 2.6 % Monocytes % (Manual) 3.5 % Metamyelocytes % 4.4 % Myelocytes % 0.9 % Nucleated Red Blood Cells % 6.4 % 8.3 % Neutrophils # (Manual) 24.62 K/uL Total Absolute Neutrophils 24.62 K/uL Lymphocytes # (Manual) 0.72 K/uL Total Absolute Lymphocytes 0.72 K/uL Monocytes # (Manual) 0.97 K/uL Metamyelocytes # 1.22 K/uL Myelocytes # 0.25 K/uL Platelet Estimate DECREASED DECREASED Polychromasia 1+ 1+ Spherocytes 1+ Target Cells 1+ Gruber[place] Bodies 1+ 1+ Schistocytes 1+ Sodium Level 142 mmol/L 141 mmol/L Potassium Level 4.4 mmol/L 4.5 mmol/L Chloride Level 110 mmol/L 110 mmol/L Carbon Dioxide Level 18 mmol/L 19 mmol/L Anion Gap 14.0 mmol/L 12.0 mmol/L Blood Urea Nitrogen 40 mg/dl 42 mg/dl Creatinine 1.13 mg/dl 1.14 mg/dl Est Creatinine Clear Calc Drug Dose 73.3 ml/min 73.2 ml/min Estimated GFR () 64.7 64.0 Estimated GFR (Non- 55.8 55.2 BUN/Creatinine Ratio 35.5 37.2 Random Glucose 156 mg/dl 159 mg/dl Calcium Level 7.2 mg/dl 7.3 mg/dl Phosphorus Level 3.2 mg/dl 2.3 mg/dl Magnesium Level 1.8 mg/dl 1.7 mg/dl Procalcitonin 1.67 ng/ml Neutrophils (%) (Auto) 85.3 % Lymphocytes (%) (Auto) 3.1 % Monocytes (%) (Auto) 1.9 % Eosinophils (%) (Auto) 0.0 % Basophils (%) (Auto) 0.7 % Neutrophils # (Auto) 26.74 K/uL Lymphocytes # (Auto) 0.96 K/uL Monocytes # (Auto) 0.59 K/uL Eosinophils # (Auto) 0.00 K/uL Basophils # (Auto) 0.21 K/uL Immature Granulocyte % (Auto) 9.0 % Immature Granulocyte # (Auto) 2.82 K/uL Toxic Granulation 1+ Anisocytosis PRESENT Tear Drop Cells 1+ Test 07/07/17 05:40 07/07/17 11:15 07/07/17 11:36 Bedside Glucose 172 mg/dl 190 mg/dl Urine Color DK YELLOW Urine Appearance CLOUDY Urine pH 5.0 Urine Specific [place] 1.022 Urine Protein 2+ Urine Glucose (UA) NEG Urine Ketones TRACE Urine Occult Blood 3+ Urine Nitrite POS Urine Bilirubin 1+ Urine Urobilinogen NEG Urine Leukocyte Esterase SMALL Urine WBC (Auto) >30 /hpf Urine RBC (Auto) >30 /hpf Urine Hyaline Casts (Auto) 1-5 /lpf Urine Epithelial Cells (Auto) >30 /lpf Urine Bacteria (Auto) NEG Urine Crystals Urine Pathogenic Casts 5-10 GRANULAR CASTS /lpf Urine Yeast (Auto) PRESENT Assessment and Plan alcoholic liver disease--LFTS and INR have been trending down as of last check. Will continue to follow these parameters but I do not feel she has liver decompensation at this time Elevated WBC--worsening--discussed with repatcher this is unlikley GI related and continue to treat other possible sources of infection ascites--minimal on f/u CT 07/06/17 so doubt has SBP peripancreatic stranding on CT--could have an element of pancreatitis but this is not major issue and should continue tube feeds. Will repeat lipase in am. hepatomegaly--presumably from ETOH elevated LFTS--from ETOH elev INR from ETOH Cdiff colitis--resolving nutrition--recommend advancing tube feeds as tolerated Thickened colon on admit CT--most likely from Cdiff. 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 Also if ischemic bowel were original problem the repeat CT 07/06 would have shown more significant bowel findings (other than sigmoid diverticulosis, no other bowel findings mentioned on CT). Continue supportive care. Guarded prognosis.
[2017-07-07] MEDS ORDERED: INSULIN ASPART 100 UNITS/ML 3 ML PEN SC SCH (16:00)
[2017-07-07] MEDS: LEVOFLOXACIN / D5W 750 MG in PREMIXED IN D5W 150 ML IV SCH (16:55)
[2017-07-07] MEDS ORDERED: NURSING VERBAL MED ORDER ONE (18:45)
--- NOTE | 2017-07-07 18:58 | Anesthesiology Progress Note ---
Anesthesia Progress Note Date of Service Jul 07, 2017. Progress Notes Called by the ICU team 2/2 pt biting chief pilot balloon causing a tear. The patient was placed on 100% FiO2. 14mg of cisatracurium was administered intravenously. A glidescope #3 was passed through the pt's oropharynx with good visualization of the endotracheal tube. The old endotracheal tube was removed and a new 8.0 ETT was placed with a grade 1 view. There was 1 attempt and it was atraumatic. ETT was secured by respiratory at 24cm. There was +ETCO2 and B/L breath sounds. Vital signs were stable throughout the process. Care was returned to the ICU team.
--- NOTE | 2017-07-07 23:23 | Progress Note ---
Subjective Date of Service: Jul 07, 2017. Subjective Unable to obtain history from patient as she is intubated and 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. Problem List Medical Problems: (1) Abdominal pain Status: Acute (2) Acute pancreatitis Status: Acute (3) Alcohol abuse Status: Acute (4) Alcohol intoxication Status: Acute (5) Anemia Status: Acute (6) Anemia Status: Acute (7) Biliary obstruction Status: Acute (8) C. difficile colitis Status: Acute (9) C. difficile diarrhea Status: Acute (10) Chest pain Status: Acute (11) Contusion of multiple sites Status: Acute (12) Dehydration Status: Acute (13) Dehydration Status: Acute (14) Encounter for smoking cessation counseling Status: Acute (15) Epigastric abdominal pain Status: Acute (16) Fall Status: Acute (17) Fall due to slipping on ice or snow Status: Acute (18) Fracture of left distal radius Status: Acute (19) Hypocalcemia Status: Acute (20) Hypomagnesemia Status: Acute (21) Hypomagnesemia Status: Acute (22) Hypotension Status: Acute (23) Lactic acidosis Status: Acute (24) Liver failure Status: Acute (25) Pancreatitis Status: Acute Review of Systems All Other Systems: Reviewed and Negative Objective Vital Signs Date Time Temp Pulse Resp B/P (MAP) Pulse Ox O2 Delivery O2 Flow Rate FiO2 07/07/17 23:00 104 114/72 (90) 96 07/07/17 22:32 40 07/07/17 22:00 104 25 117/74 (88) 95 Mechanical Ventilator 40 07/07/17 22:00 104 25 117/74 (91) 95 07/07/17 21:01 104 22 120/76 (98) 98 07/07/17 21:00 103 20 120/76 (91) 98 Mechanical Ventilator 40 07/07/17 20:00 98 Mechanical Ventilator 100 07/07/17 20:00 100 07/07/17 20:00 102 16 114/74 (92) 98 07/07/17 20:00 37.1 102 16 114/74 (87) 98 Mechanical Ventilator 100 07/07/17 19:13 40 07/07/17 19:00 100 20 98 Mechanical Ventilator 100 07/07/17 19:00 100 20 108/70 (86) 98 07/07/17 18:00 104 22 113/70 (84) 97 Mechanical Ventilator 40 3/17/18 18:00 104 22 113/70 (83) 97 17/18 17:51 40 07/07/18 17:00 106 25 120/72 (92) 97 17/18 16:00 103 22 97 07/07/18 16:00 36.6 102 22 109/71 (84) 97 Mechanical Ventilator 40 07/07/18 16:00 Mechanical Ventilator 50 07/07/18 16:00 40 07/07/18 15:00 105 22 118/68 (92) 95 07/07/18 14:45 40 07/07/18 14:00 104 20 97 07/07/18 14:00 105 28 118/77 (91) 97 Mechanical Ventilator 40 18 13:00 104 98 18 12:00 40 18 12:00 36.8 106 21 118/73 (88) 94 Mechanical Ventilator 40 18 12:00 Mechanical Ventilator 50 18 12:00 105 20 94 18 11:36 40 18 11:01 107 16 118/72 (93) 95 07/07/18 11:00 107 20 95 07/07/18 10:00 108 21 93 17/18 10:00 108 21 111/67 (82) 93 Mechanical Ventilator 40 18 09:00 111 20 92 07/07/18 08:00 50 07/07/18 08:00 36.3 111 21 130/72 (91) 95 Mechanical Ventilator 50 18 08:00 Mechanical Ventilator 50 18 08:00 109 19 95 18 07:45 50 18 07:00 110 20 94 07/07/18 06:00 109 19 132/87 (102) 95 Mechanical Ventilator 50 07/07/18 06:00 109 19 95 18 05:01 50 07/07/18 05:00 107 18 95 18 04:00 107 18 94 07/07/18 04:00 36.9 107 18 138/88 (105) 94 Mechanical Ventilator 50 07/07/18 04:00 50 17/18 04:00 Mechanical Ventilator 50 18 03:00 106 18 94 18 02:16 50 3/17/18 02:00 103 17 142/81 (101) 94 Mechanical Ventilator 50 07/07/17 02:00 103 17 94 07/07/17 01:00 97 14 95 07/07/17 00:01 103 18 126/79 (100) 94 07/07/17 00:01 37.1 103 18 126/79 (95) 94 Mechanical Ventilator 50 07/06/17 23:59 Mechanical Ventilator 50 07/06/17 23:59 50 Physical Exam Comments: General Appearance: no apparent distress, intubated Neck: supple, no adenopathy, no JVD, trachea midline Respiratory/Chest: chest non-tender, no respiratory distress, no accessory muscle use, coarse breath sounds Cardiovascular: regular rate, rhythm, no edema, no gallop, no JVD, no murmur Abdomen: no organomegaly, + abnormal bowel sounds (hypoactive), + distended, softer than yesterday Extremities: normal range of motion, non-tender, normal inspection, no pedal edema, no calf tenderness, pelvis stable Neurologic/Psychiatric: 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 nml as tested, + pertinent finding (sedated on Fentanyl) Skin: normal color, warm/dry, no rash Laboratory Results Last 24 Hours Test 07/07/17 00:17 07/07/17 05:37 07/07/17 05:40 07/07/17 11:15 Bedside Glucose 168 mg/dl 172 mg/dl 190 mg/dl White Blood Count 31.32 K/uL Red Blood Count 2.51 M/uL Hemoglobin 8.6 g/dL Hematocrit 26.9 % Mean Corpuscular Volume 107.2 fL Mean Corpuscular Hemoglobin 34.3 pg Mean Corpuscular Hemoglobin Concent 32.0 g/dl Platelet Count 78 K/uL Neutrophils (%) (Auto) 85.3 % Lymphocytes (%) (Auto) 3.1 % Monocytes (%) (Auto) 1.9 % Eosinophils (%) (Auto) 0.0 % Basophils (%) (Auto) 0.7 % Neutrophils # (Auto) 26.74 K/uL Lymphocytes # (Auto) 0.96 K/uL Monocytes # (Auto) 0.59 K/uL Eosinophils # (Auto) 0.00 K/uL Basophils # (Auto) 0.21 K/uL RDW Standard Deviation 99.1 fL RDW Coefficient of Variation 26.5 % Immature Granulocyte % (Auto) 9.0 % Immature Granulocyte # (Auto) 2.82 K/uL Nucleated RBC Absolute Count (auto) 2.60 K/uL Nucleated Red Blood Cells % 8.3 % Toxic Granulation 1+ Platelet Estimate DECREASED Polychromasia 1+ Anisocytosis PRESENT Tear Drop Cells 1+ Gruber-[place] Bodies 1+ Sodium Level 141 mmol/L Potassium Level 4.5 mmol/L Chloride Level 110 mmol/L Carbon Dioxide Level 19 mmol/L Anion Gap 12.0 mmol/L Blood Urea Nitrogen 42 mg/dl Creatinine 1.14 mg/dl Est Creatinine Clear Calc Drug Dose 73.2 ml/min Estimated GFR () 64.0 Estimated GFR (Non- 55.2 BUN/Creatinine Ratio 37.2 Random Glucose 159 mg/dl Calcium Level 7.3 mg/dl Phosphorus Level 2.3 mg/dl Magnesium Level 1.7 mg/dl Test 07/07/17 11:36 07/07/17 15:13 07/07/17 17:03 Urine Color DK YELLOW Urine Appearance CLOUDY Urine pH 5.0 Urine Specific [place] 1.022 Urine Protein 2+ Urine Glucose (UA) NEG Urine Ketones TRACE Urine Occult Blood 3+ Urine Nitrite POS Urine Bilirubin 1+ Urine Urobilinogen NEG Urine Leukocyte Esterase SMALL Urine WBC (Auto) >30 /hpf Urine RBC (Auto) >30 /hpf Urine Hyaline Casts (Auto) 1-5 /lpf Urine Epithelial Cells (Auto) >30 /lpf Urine Bacteria (Auto) NEG Urine Crystals Urine Pathogenic Casts 5-10 GRANULAR CASTS /lpf Urine Yeast (Auto) PRESENT Ammonia < 10.0 umol/L Bedside Glucose 187 mg/dl Assessment and Plan 52 yo female with history of alcohol abuse, cirrhosis, c diff colitis who presented with weakness, hypotension, bloody diarrhea, KEVIN, acidosis - Septic shock: suspected source is pneumonia, likely aspiration vs colitis Source of sepsis: unclear WBC elevated. Ascities getting worse but after discussing with gi it is minimal so doubt sbp. Concern over Vent. associated pneumonia: Started on Aztreonam, Linezolid, and Levofloxacin on 07/06, day 2 In regards to colitis: Surgery is recommending possible total colectomy, however given her critical state and unclear that she may have more of a respiratory issue, pressors, bicarb drip. This procedure is being held for now. In regards to colitis, less distended abdomen. Pressors have been stopped follow up blood cultures drawn today continue IV Flagyl, Cefepime. Continue IA and PO Vanco. Held IV vanco Off pressors Start trickle feeding - Acute hypoxic respiratory failure, likely from ARDS intubated, ventilator support management per ICU ABG had decreased o2 of 60%. 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 MELD score is 20 - Lactic acidosis: likely from shock, monitor LA, fluid support - KEVIN: Cr is improved but urine output is not adequate 800ml out today despite 2600cc input via IV continue to monitor Cr q4, follow UO in gil metabolic acidosis appears to be improving. - Anemia: HB improved to above 8 stable. will continue to monitor h/o slow GI bleeding for weeks per family transfused 2 units PRBC initially, responded well, no further signs of bleeding - Hypokalemia: resolved, continue to monitor - Hypophosphatemia: low today, replace - Hypomagnesemia: low today, replace - Alcoholism, last drink was two days prior to admission place on withdrawal protocol, had some tremors on admission, resolved for time being thiamine and folate daily no signs of DT's - Hyperbilirubinemia: hepatic steatosis on imaging, likely developing cirrhosis with alcoholism history supportive care, continue to monitor, bili down to 8, INR is 1.5 Continued [facility] stay due to: multiple IV medications needed Discharge planning: uncertain
[2017-07-08] VITALS (24 sets, daily range): BP systolic 95–123; BP diastolic 61–79; PULSE 106–116; TEMP 36.5–37.7; O2SAT 93–99
[2017-07-08] MEDS: INSULIN ASPART 100 UNITS/ML 3 ML PEN SC SCH ×3 (00:17→11:32)
[2017-07-08] MEDS: AZTREONAM IV 2,000 MG in DEXTROSE 5% 100ML 100 ML IV SCH ×2 (00:17→07:48)
[2017-07-08] MEDS ORDERED: INSULIN ASPART 100 UNITS/ML 3 ML PEN SC ONE (00:30)
[2017-07-08] MEDS: IPRATROPIUM BROMIDE HFA INHALER INH SCH ×6 (04:00→23:02)
[2017-07-08] MEDS: ALBUTEROL HFA 8 GM INHALER INH SCH ×6 (04:00→23:02)
[2017-07-08] MEDS: VANCOMYCIN HCL 250 MG/5 ML SOLN PO SCH ×4 (04:43→21:41)
[2017-07-08] MEDS: PEPTAMEN 1.5 CAL 1000ML BAG OG PRN (04:53)
[2017-07-08 06:05] LABS: INR 1.5 (0.9-1.1)
[2017-07-08] MEDS: HEPARIN SOD 5000 UNIT/0.5 ML CARP SQ SCH ×3 (06:19→21:42)
[2017-07-08 06:20] LABS: ALBUMIN 1.7 gm/dl (3.4-5.0); CALCIUM 7.8 mg/dl (8.5-10.1); CREATININE 1.21 mg/dl (0.60-1.20); POTASSIUM 4.5 mmol/L (3.5-5.1)
[2017-07-08 06:25] LABS: PHOSPHORUS 1.6 mg/dl (2.5-4.9); TOTAL PROTEIN 5.1 gm/dl (6.4-8.2)
[2017-07-08 06:27] LABS: HEMATOCRIT 25.9 % (37-47); HEMOGLOBIN 8.4 g/dL (12.0-16.0); MEAN CORPUSCULAR HEMOGLOBIN 34.7 pg (25-34); MEAN CORPUSCULAR HGB CONC 32.4 g/dl (32-36); NUCLEATED RED BLOOD CELL ABS 3.94 K/uL (0-0); PLATELET COUNT 53 K/uL (130-400); RED CELL DISTRIBUTION WIDTH CV 26.5 % (11.5-14.5); RED CELL DISTRIBUTION WIDTH SD 95.7 fL (36.4-46.3); WHITE BLOOD COUNT 33.71 K/uL (4.8-10.8)
[2017-07-08 06:33] LABS: BASO % 0.6 %; BASO ABS # 0.19 K/uL (0-0.2); EOS ABS # 0.01 K/uL (0-0.5); IG# 2.15 K/uL (0.00-0.02); LYMPH ABS # 0.66 K/uL (1.2-3.4); MONO % 1.8 %; MONO ABS # 0.61 K/uL (0.11-0.59); NEUT % 89.2 %; NEUT ABS # 30.09 K/uL (1.4-6.5)
--- NOTE | 2017-07-08 07:01 | Critical Care Progress Note ---
Critical Care Progress Note Date of Service Jul 08, 2017. ICU Day ICU Day Number: [address] Hernandez Subjective Unable to obtain due to pt mental status or condition. Lengthy discussion with nursing. ON: blood sugar elevated to 190s and this AM 228. Received SSI Novolog 11 units (goal 100-140 CF: 15 and CHO ratio 1: 5). Yesterday evening: ET tube changed for the 2nd time that day due to pt bitting tube and causing air leak. Mental status remains unchanged. Otherwise no acute events ON. Objective General: fully sedated, resting in bed ELECTRIC WIRER: RASS score of -4 (deeply sedated; unarousable to vocal and tactile stimuli) HEENT: Scleral icterus, new ET tube and OG tube Lungs: coarse breath sounds, scattered rhonchi CVS: RRR, normal S1, S2, no murmurs Skin: jaundiced Abdomen: +BS (hypoactive); less distended, no reaction to palpation (note: fully sedated), severe hepatomegaly (abdominal exam stable) Extremities: 4+ pedal edema and 4+ UE edema; (serous oozing of UEs and lower abdomen with friable and erythematous skin) Assessment & Plan 52y/oF admitted with severe sepsis secondary to likely C.diff vs. ischemic colitis. Now with worsening respiratory failure/ARDS on mechanical ventilation (on PC RR : 20, Ip 20, I-time 0.89, peep 8, FiO2 40%). On Aztreonam, Linezolid, and Levofloxacin for concern of possible ventilator associated pneumonia given worsening imaging and clinical status on 07/06. Procal was also elevated at 1.67. Persistent liver failure in the setting of alcoholic cirrhosis. Tolerating increased feeds. Acidosis improved. Weaned off pressors and sedation. Mental status continues to be altered. CT head no acute IC pathology and no epileptiform activity on EEG. Consistent with moderate-severe encephalopathy likely in the setting of infection vs. cirrhosis. Ammonia normal at 10. LFTs continue to be elevated. PLAN: ELECTRIC WIRER: This AM RASS score -4. Goal RASS score of -1 while on mechanical ventilation. Mental status continues to be altered despite being off sedation since 07/05. CT head showed no acute IC pathology and no epileptiform activity on EEG. Consistent with moderate-severe encephalopathy likely in the setting of infection vs. cirrhosis. Ammonia normal at <10 Neurology consulted - subclinical seizure unlikely, recommended MRI if clinically stable Off fentanyl since 07/05 Off Versed since 0500 07/04 Dced BIS monitor and Nimbex at 1200 on 07/03 CVS: BP normalized. 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 No intervention at this time. SMA/LISBET patent. Hypervolemic +34L PULM: Stable/worsening acute respiratory failure; on ARDSnet protocol. P and F ratio 100 Vent: On PC 20, RR: 20, Ipressure 20, Itime 0.89, peep 8, FiO2 40% VBG this AM: PH 7.4 PCO2 30, O2 40; HCO3 18, O2 sat 75% Pulm Toilet: alubterol 4 puffs Q4H; Atrovent 4 puffs Q4H Methylpred 40mg Q12H (on meduri protocol 32 days) RENAL/METABOLIC: renal function at baseline Cr ~ 1; Cr today 1.2 with elevated BUN of 48 Stable urine output Volume overloaded by +34L Given Lasix x 2 - last dose 07/06 ID: Sepsis 2/2 C. diff vs ischemic colitis and PNA; Concern for worsening PNA ( possibly ventilator associated PNA). Abdominal CT 07/06: small pleural effusion and dense bibasilar consolidation; diffuse ground glass; diffuse anasarca body wall increased from 06/29; small volume of amniopelvic ascites increased from 06/29; hepatomegaly with severe hepatic steatosis; mild peripancreatic stranding/fluid. CXR 07/06: bilateral opacity and interstitial thickening; small bilateral pulmonary effusions; no pneumothorax procal 1.67 on 07/06 Blood culture from 07/01 no growth Fungal gram stain and culture - no yeast or fungus Repeat sputum gram stain and culture - normal oral raquel Continue C.diff Abx regimen: Vanc PO day 9; Flagyl IV day 8 Started on Aztreonam, Linezolid, and Levofloxacin on 07/06, day 2 Received Vanc IA x 4 days Received Cefepime x 5 days Received IV vanc x 3 days ENDO: off Insulin gtt; blood sugars in 190s-220s range NovoLog SSI (goal 100-140; CF 15; CHO ratio 1:5) Q4H Accu checks Q4H HEME: Anemia stable and platelet count worse this AM at 53 from 78; H/H this AM 8.4/25.9 from 8.6/26.9. No evidence of bleeding Heparin PF4 Ab - neg Monitor CBC Consider transfusing once Hgb < 7 Electrolytes: Low Ca 7.8 (corrected 9.2 given albumin of 1.7), Mag 1.9 and Phos 1.6) Ordered Potassium Phosphate 21mmol Nutrition: Increased tube feeds of Peptamen 1.5 from 10 to 35mls/hr per nutrition recommendations Vit C and Thiamine cocktail Folic Acid GI: tolerating increased tube feeds Persistent liver failure; total bilirubin stable at 6.8; AST increased to 70 from 67 and Alk phos to 285 from 243 MELD score 20 (19.6% mortality risk); Child-Burns score of 11 (class C) Continue recurrent C.diff Colitis treatment: Vanc PO day 9; Flagyl IV day 8 Consulted surgery: high mortality risk for total colectomy at this time GI prophylaxis: Protonix 40mg IV BID IV access: Placed R arm PICC line 07/05 Removed L femoral tri-lumen central venous cath and kyle 07/05 DVT Prophylaxis: Heparin 5000 units BID; SCDs PROGNOSIS: poor given high mortality in the setting of severe sepsis and multi- organ failure and poor baseline healthy Palliative care consulted Family Meeting: maintain current care plan, do not escalate care, would like to avoid surgery at this point; will reassess if condition worsens CCT: 45 minutes independent of procedures Thank you for including us in the care of this patient. Please refer to Dr. Hernandez's addendum for further recommendations. Resident Physician Supervision Note: Dr. Horton was resident physician during care of patient. I separately evaluated patient and did history and exam. I discussed the case with the resident and generally agree with the findings and plan. PLAN: Neuro: Metabolic encephalopathy, sedatives have been held, EEG performed no evidence of nonconvulsive status will order MRI for further evaluation of encephalopathy evaluation, at this point I believe it will take continued time for the underlying metabolic processes to normalize Resp: Are not significantly improved, decreasing steroids, on pressure support ventilation, pressure support 5 PEEP of 8 wean as tolerated for sats greater than 94% CV: Septic shock: Resolved off vasoactive medication Fluids/Renal: Acute kidney injury: Improved from admission, creatinine currently 1.2 up from 1.1 previously. I will gently diurese the patient today our goal is to continue with a negative 24 hour fluid balance Anasarca: Patient 34 L positive by cumulative totals obviously there are some insensible losses ID: Culture results have revealed a sputum culture for Mayra albicans as well as a C. difficile toxin which was positive, blood cultures have remained negative 2. IV Flagyl started June 27 at 1800 continued for 29 doses (10 days) therapy discontinued IV Levaquin 750 mg every 24 hours started July 01 at 0630 for 2 doses and then started again on July 06 at 1639-07-24 doses therapy ongoing Cefepime 2000 mg every 12 hours started July 01 at 9163 doses, increase to every 8 hours secondary to improved renal function for 11 doses (7 days therapy ) therapy discontinued Vancomycin enema 500 mg every 6 hours started July 02 at 2041 for 19 doses (5 days therapy) therapy discontinued Vancomycin oral solution 250 mg every 6 hours started June 30 at 1100, 32 doses (8 days therapy) therapy ongoing Vancomycin IV started July 01 at 2120, 2 days of effective treatment) therapy discontinued Linezolid IV 600 mg every 12 hours, started July 06 for doses, (2 days effective therapy) therapy ongoing Aztreonam 2000 mg every 8 hours initial dose June 27 1, second course of therapy started July 06 at 1650, 6 doses 2 days effective therapy Active infectious issues: 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 * She presently is tolerating oral vancomycin at the higher 250 mg every 6 hours dose Ventilator associated pneumonia * I have reviewed and reviewed her blood gas analyses from July 01 until July 06 * I reviewed respiratory notes during those intervals as well * Resident critical care note of July 07 states "Now with worsening respiratory failure/ARDS on mechanical ventilation (on PC 22, RR: 10 peep 8, FiO2 40%). Started on Aztreonam, Linezolid, and Levofloxacin for concern of possible ventilator associated pneumonia given worsening imaging and clinical status on 07/06. Procal was also elevated at 1.67." * However mechanical ventilatory requirements the previous day did not show stability for greater than 24 hours: Ventilator requirements for July 05 were PEEP of 8 FiO2 of 60% as of 07/05 0420; transition to 5 of PEEP and an FiO2 of 50 % at 1137; patient was later started on a CPAP trial at 1624; after the CPAP trial of approximately 4-1/2 hours the patient's FiO2 was increased to 60%, FiO2 was decreased on 07/06-50% at 930 and subsequently increased at 10:00 with again being decreased at 12:00 to 50% * During the previous 72 hours document scant secretions within quality: No change in secretions to a purulent nature nor positive respiratory cultures during the period in question * The same organism that was retrieved on July 03 was also present on July 06 , I feel this represents colonization as the patient's respiratory requirements have decreased during that timeframe * The patient does have a elevated white count greater than 12,000, however she is on high-dose steroids, and has remained afebrile during the period of consideration of the ventilator associated condition * The patient did require exchange of her endotracheal tube however this is secondary to loss of dispatcher ship pilot balloon integrity, and malfunction of a bite block, not secondary to secretion burden * The patient procalcitonin, while elevated at 1.67 is also influenced by renal failure and various other pathologies and is now downtrending. * Accordingly I did not feel the patient has an active pulmonary infection, and would disagree with the resident assessment, I am discontinuing the aztreonam, linezolid and levofloxacin. GI/Nutrition:MELD-Na: 20 (3-4% 90 day estimated mortality) tolerating tube feeds , I have reviewed the gastroenterology notes Heme: Thrombocytopenia, negative hit antibody, anemia, patient has remained on heparin since 02 July, no new evidence of active thrombosis, I feel this is most likely bone marrow suppression secondary to severity of critical illness, will check surveillance venous duplex, continue current treatment Endocrine: Patient has diffuse anasarca and I do not feel is having adequate absorption of her insulin causing severe swings, I will continue an insulin infusion as sole insulin coverage at this time I have personally spent 130 minutes of critical care time in the direct management of this patient. This is a life/limb threatening event. This includes time spent evaluating patient, direct bedside care, chart review, placing orders, interpretation of diagnostic studies, discussion with consultants, patient, and/or family members regarding treatment decisions, as well as other required patient management activities. This time is exclusive of all separately billable procedures, and teaching time and separate from and in addition to any other critical care service time. Documented By: Jericho Hernandez DO Consults & Procedures Consultants: GI: Dr Joseph Vascular: Dr Baron General Surgery: Dr. Choe IV team for PICC line Procedures: 07/01/17: left femoral TLC 07/01/17: left femoral a-line 07/01/17: intubation Data Medications: Current Inpatient Medications Medications (Trade) Dose Ordered Sig/Razia Route Start Time Stop Time Status Last Admin Dose Admin Pantoprazole Sodium 40 mg/ Syringe 10 ml @ 5 mls/min BID IV 06/27/17 09:00 07/27/17 08:59 07/07/17 21:18 5 MLS/MIN Thiamine HCl 100 mg/Syringe 10 ml @ 2 mls/min Q24H IV 06/28/17 11:00 07/28/17 10:59 07/07/17 11:24 2 MLS/MIN Folic Acid 1 mg/ Syringe 10 ml @ 5 mls/min Q24H IV 06/28/17 11:00 07/28/17 10:59 07/07/17 11:24 5 MLS/MIN Lorazepam (Ativan Inj) 1 mg ONE PRN IV 06/27/17 09:15 Ondansetron HCl (Zofran Inj) 4 mg Q6H PRN IV 06/27/17 17:46 07/27/17 17:45 Hydromorphone HCl (Dilaudid Inj) 1 mg Q3HWA PRN IV 06/29/17 09:15 07/13/17 09:14 06/30/17 20:36 1 MG Vancomycin HCl (Vancomycin Oral Soln) 250 mg Q6H PO 06/30/17 10:00 07/10/17 09:59 07/08/17 04:43 250 MG Albuterol/ Ipratropium (Duoneb) 3 ml Q4 PRN INH 07/01/17 05:30 07/31/17 05:29 Future Hold 07/01/17 10:06 3 ML Insulin Aspart (novoLOG ASPART) SLIDING SCALE [facility] 07/02/17 08:00 08/01/17 07:59 Future Hold Glucose (Glucose 40% Gel) 15-30 GRAMS 15 GRAMS... UD PRN PO 07/01/17 23:45 07/31/17 23:44 Glucose (Glucose Chew Tab) 4-8 Tablets 4 Tabl... UD PRN PO 07/01/17 23:45 07/31/17 23:44 Dextrose (Dextrose 50% 50ML Syringe) 25-50ML OF 50% DW IV FOR... UD PRN IV 07/01/17 23:45 07/31/17 23:44 Glucagon (Glucagon Inj) 1 mg UD PRN SQ 07/01/17 23:45 07/31/17 23:44 Albuterol (Ventolin Hfa Inhaler) 4 puffs Q4R INH 07/02/17 08:00 08/01/17 07:59 07/08/17 04:00 4 PUFFS Ipratropium Goldsmith (Atrovent Hfa Inhaler) 4 puffs Q4R INH 07/02/17 08:00 08/01/17 07:59 07/08/17 04:00 4 PUFFS Heparin Sodium (Porcine) (Heparin Sq 5000 Unit/0.5ml) 5,000 unit Q8H SQ 07/02/17 14:00 08/01/17 13:59 07/08/17 06:19 5,000 UNIT Artificial Tears (Lacri-Lube Oph Oint) 1 appln Q2H PRN OPB 07/02/17 21:45 08/01/17 21:44 Enteral Nutritional Formula (Peptamen 1.5) 1,000 ml UD PRN OG 07/04/17 11:00 08/03/17 10:59 07/08/17 04:53 1,000 ML Heparin Sodium (Porcine) (Heparin 10 Unit/ ml 5 ml Flush) 5 ml PRN PRN FLUSH 07/04/17 20:45 08/03/17 20:44 Methylprednisolone Sodium Succinate 40 mg/Syringe 0.64 ml @ 1.5 mls/min Q12H IV 07/05/17 20:00 08/04/17 19:59 07/07/17 21:18 1.5 MLS/MIN Linezolid 600 mg/ Prmx 300 ml @ 300 mls/hr Q12 IV 07/06/17 21:00 07/13/17 20:59 07/07/17 21:18 300 MLS/HR Levofloxacin 750 mg/Prmx 150 ml @ 100 mls/hr Q24H IV 07/06/17 17:00 07/13/17 16:59 07/07/17 16:55 100 MLS/HR Aztreonam 2000 mg/ Dextrose 110 ml @ 100 mls/hr Q8H IV 07/06/17 17:00 07/13/17 16:59 07/08/17 00:17 100 MLS/HR Insulin Aspart (novoLOG ASPART) SLIDING SCALE G... Q4 SC 07/08/17 01:00 08/07/17 00:59 07/08/17 04:49 11 UNITS I & O: 24hr Is/Os: 1456cc/750cc UOP rate = 0.30cc/kg/hr Net +706 cumulate fluid accumulation of +34L Vital Signs: Date Time Temp Pulse Resp B/P (MAP) Pulse Ox O2 Delivery O2 Flow Rate FiO2 07/08/17 06:00 110 19 108/66 (80) 97 Mechanical Ventilator 40 07/08/17 06:00 110 19 97 07/08/17 05:59 40 07/08/17 05:00 108 96 07/08/17 05:00 108 120/77 (91) 96 Mechanical Ventilator 40 07/08/17 04:00 36.5 109 121/74 (90) 96 Mechanical Ventilator 40 07/08/17 04:00 40 07/08/17 04:00 109 96 07/08/17 04:00 93 Mechanical Ventilator 40 07/08/17 03:00 107 20 123/78 (93) 96 Mechanical Ventilator 40 07/08/17 03:00 107 20 96 07/08/17 02:16 40 07/08/17 02:00 111 23 121/79 (93) 97 Mechanical Ventilator 40 07/08/17 02:00 111 23 121/79 (92) 97 07/08/17 01:00 106 22 112/72 (85) 96 Mechanical Ventilator 40 07/08/17 01:00 106 22 112/72 (90) 96 07/08/17 00:00 109 22 116/78 (91) 97 3/18/18 00:00 36.7 109 22 116/78 (91) 97 Mechanical Ventilator 40 17/18 23:59 94 Mechanical Ventilator 40 17/18 23:59 40 /17/18 23:22 40 3/17/18 23:00 104 114/72 (86) 96 Mechanical Ventilator 40 17/18 23:00 104 114/72 (90) 96 17/18 22:32 40 17/18 22:00 104 25 117/74 (88) 95 Mechanical Ventilator 40 17/18 22:00 104 25 117/74 (91) 95 17/18 21:01 104 22 120/76 (98) 98 17/18 21:00 103 20 120/76 (91) 98 Mechanical Ventilator 40 07/07/18 20:00 98 Mechanical Ventilator 100 07/07/18 20:00 100 /17/18 20:00 102 16 114/74 (92) 98 07/07/18 20:00 37.1 102 16 114/74 (87) 98 Mechanical Ventilator 100 07/07/18 19:13 40 17/18 19:00 100 20 98 Mechanical Ventilator 100 17/18 19:00 100 20 108/70 (86) 98 /17/18 18:00 104 22 113/70 (84) 97 Mechanical Ventilator 40 17/18 18:00 104 22 113/70 (83) 97 17/18 17:51 40 17/18 17:00 106 25 120/72 (92) 97 17/18 16:00 103 22 97 17/18 16:00 36.6 102 22 109/71 (84) 97 Mechanical Ventilator 40 17/18 16:00 Mechanical Ventilator 50 17/18 16:00 40 17/18 15:00 105 22 118/68 (92) 95 17/18 14:45 40 17/18 14:00 104 20 97 3/17/18 14:00 105 28 118/77 (91) 97 Mechanical Ventilator 40 17/18 13:00 104 98 17/18 12:00 40 17/18 12:00 36.8 106 21 118/73 (88) 94 Mechanical Ventilator 40 3/17/18 12:00 Mechanical Ventilator 50 07/07/17 12:00 105 20 94 07/07/17 11:36 40 07/07/17 11:01 107 16 118/72 (93) 95 07/07/17 11:00 107 20 95 07/07/17 10:00 108 21 93 07/07/17 10:00 108 21 111/67 (82) 93 Mechanical Ventilator 40 07/07/17 09:00 111 20 92 07/07/17 08:00 50 07/07/17 08:00 36.3 111 21 130/72 (91) 95 Mechanical Ventilator 50 07/07/17 08:00 Mechanical Ventilator 50 07/07/17 08:00 109 19 95 07/07/17 07:45 50 07/07/17 07:00 110 20 94 Laboratory Results: Last 24 Hours Test 07/07/17 11:15 07/07/17 11:36 07/07/17 15:13 07/07/17 17:03 Bedside Glucose 190 mg/dl 187 mg/dl Urine Color DK YELLOW Urine Appearance CLOUDY Urine pH 5.0 Urine Specific [place] 1.022 Urine Protein 2+ Urine Glucose (UA) NEG Urine Ketones TRACE Urine Occult Blood 3+ Urine Nitrite POS Urine Bilirubin 1+ Urine Urobilinogen NEG Urine Leukocyte Esterase SMALL Urine WBC (Auto) >30 /hpf Urine RBC (Auto) >30 /hpf Urine Hyaline Casts (Auto) 1-5 /lpf Urine Epithelial Cells (Auto) >30 /lpf Urine Bacteria (Auto) NEG Urine Crystals Urine Pathogenic Casts 5-10 GRANULAR CASTS /lpf Urine Yeast (Auto) PRESENT Ammonia < 10.0 umol/L Test 07/08/17 00:10 07/08/17 04:36 07/08/17 05:40 Bedside Glucose 213 mg/dl 228 mg/dl White Blood Count 33.71 K/uL Red Blood Count 2.42 M/uL Hemoglobin 8.4 g/dL Hematocrit 25.9 % Mean Corpuscular Volume 107.0 fL Mean Corpuscular Hemoglobin 34.7 pg Mean Corpuscular Hemoglobin Concent 32.4 g/dl Platelet Count 53 K/uL Neutrophils (%) (Auto) 89.2 % Lymphocytes (%) (Auto) 2.0 % Monocytes (%) (Auto) 1.8 % Eosinophils (%) (Auto) 0.0 % Basophils (%) (Auto) 0.6 % Neutrophils # (Auto) 30.09 K/uL Lymphocytes # (Auto) 0.66 K/uL Monocytes # (Auto) 0.61 K/uL Eosinophils # (Auto) 0.01 K/uL Basophils # (Auto) 0.19 K/uL RDW Standard Deviation 95.7 fL RDW Coefficient of Variation 26.5 % Immature Granulocyte % (Auto) 6.4 % Immature Granulocyte # (Auto) 2.15 K/uL Nucleated RBC Absolute Count (auto) 3.94 K/uL Nucleated Red Blood Cells % 11.7 % Toxic Granulation 1+ Platelet Estimate DECREASED Polychromasia 1+ Anisocytosis PRESENT Pappenheimer Bodies 1+ [place] Bodies OCCASIONAL Prothrombin Time 15.3 SECONDS Prothromb Time International Ratio 1.5 Venous Blood pH 7.40 Venous Blood Partial Pressure CO2 30 mmHg Venous Blood Partial Pressure O2 42 mmHg Venous Blood HCO3 18 mmol/L Venous Blood Oxygen Saturation 74.6 % Venous Blood Base Excess -6.1 mEq/L Sodium Level 141 mmol/L Potassium Level 4.5 mmol/L Chloride Level 111 mmol/L Carbon Dioxide Level 17 mmol/L Anion Gap 13.0 mmol/L Blood Urea Nitrogen 48 mg/dl Creatinine 1.21 mg/dl Est Creatinine Clear Calc Drug Dose 68.9 ml/min Estimated GFR () 59.6 Estimated GFR (Non- 51.4 BUN/Creatinine Ratio 39.5 Random Glucose 210 mg/dl Calcium Level 7.8 mg/dl Phosphorus Level 1.6 mg/dl Magnesium Level 1.9 mg/dl Total Bilirubin 6.4 mg/dl Aspartate Amino Transf (AST/SGOT) 70 U/L Alanine Aminotransferase (ALT/SGPT) 24 U/L Alkaline Phosphatase 285 U/L Ammonia < 10.0 umol/L Total Protein 5.1 gm/dl Albumin 1.7 gm/dl Globulin 3.4 gm/dl Albumin/Globulin Ratio 0.5 Lipase 263 U/L
[2017-07-08] MEDS ORDERED: POTASSIUM PHOS 3 MMOL/1 ML INFUSION IV STA (07:02)
[2017-07-08] MEDS ORDERED: POTASSIUM PHOSPHATE INJ 21 MMOL in SODIUM CHLORIDE 0.9% 500ML 500 ML IV ONE (07:30)
--- NOTE | 2017-07-08 07:37 | DIAGNOSTIC IMAGING REPORT ---
CHEST ONE VIEW PORTABLE HISTORY: 52 years-old Female ARDS acute respiratory failure COMPARISON: Chest radiograph 07/06/2017 TECHNIQUE: Portable AP view the chest FINDINGS: Endotracheal tube overlies the midline, 3.6 cm superior to the [place]ia [place]. Enteric tube courses below the diaphragm outside the [id number]. Right-sided PICC is unchanged. Cardiac silhouette is size. Interstitial thickening with bibasilar opacities appear unchanged. Mild blunting of the costophrenic angles. These findings appear unchanged. No pneumothorax. Bones of the chest appear grossly intact. IMPRESSION: 1. Stable satisfactory positioning of left support lines and tubes. 2. Persistent interstitial coarsening with bibasilar opacities suggesting pulmonary edema with atelectasis. 3. Trace pleural effusions. The above report was generated using voice recognition software. It may contain grammatical, syntax or spelling errors. Electronically signed by: Nicolas Song M.D. 07/08/2017 7:35 AM Dictated Date/Time: 07/08/2017 7:33 AM
[2017-07-08] MEDS: METHYLPREDNISOLONE IV 40 MG in SYRINGE 0 ML IV SCH (07:48)
[2017-07-08] MEDS: PANTOprazole INJ 40 MG in SYRINGE 0 ML IV SCH ×2 (07:48→21:41)
[2017-07-08] MEDS: LINEZOLID / D5W 600 MG in PREMIXED IN D5W 300 ML IV SCH (07:48)
[2017-07-08] MEDS ORDERED: NURSING VERBAL MED ORDER ONE (08:45)
[2017-07-08] MEDS ORDERED: NovoLIN R BOLUS FROM BAG IV ONE (09:00)
[2017-07-08] MEDS: INSULIN REGULAR 250 UNITS in SODIUM CHLORIDE 0.9% 250ML 250 ML IV SCH (09:18)
[2017-07-08] MEDS: FoLIC ACID INJ 1 MG in SYRINGE 9.8 ML IV SCH (10:54)
[2017-07-08] MEDS: THIAMINE HCL INJ 100 MG in SYRINGE 9 ML IV SCH (10:54)
--- NOTE | 2017-07-08 15:08 | Gastroenterology Progress Note ---
Progress Note Date of Service: Jul 08, 2017 Subjective Pt evaluation today including: conversation w/ patient (pt non responsive so history from chart, nurse and slip caster), physical exam, chart review, lab review, review of studies, review of inpatient medication list CC f/u etoh liver disease, cdiff HPI Per nurse no stools and tolerating 45 ml/hour of tube feeds. Remains nonresponsive on vent. Per slip caster the pulm status overall better in terms of vent settings. Review of Systems cannot assess, pt nonresponsive Medications Current Inpatient Medications Medications (Trade) Dose Ordered Sig/Razia Route Start Time Stop Time Status Last Admin Dose Admin Pantoprazole Sodium 40 mg/ Syringe 10 ml @ 5 mls/min BID IV 06/27/17 09:00 07/27/17 08:59 07/08/17 07:48 5 MLS/MIN Thiamine HCl 100 mg/Syringe 10 ml @ 2 mls/min Q24H IV 06/28/17 11:00 07/28/17 10:59 07/08/17 10:54 2 MLS/MIN Folic Acid 1 mg/ Syringe 10 ml @ 5 mls/min Q24H IV 06/28/17 11:00 07/28/17 10:59 07/08/17 10:54 5 MLS/MIN Lorazepam (Ativan Inj) 1 mg ONE PRN IV 06/27/17 09:15 Ondansetron HCl (Zofran Inj) 4 mg Q6H PRN IV 06/27/17 17:46 07/27/17 17:45 Hydromorphone HCl (Dilaudid Inj) 1 mg Q3HWA PRN IV 06/29/17 09:15 07/13/17 09:14 06/30/17 20:36 1 MG Vancomycin HCl (Vancomycin Oral Soln) 250 mg Q6H PO 06/30/17 10:00 07/10/17 09:59 07/08/17 09:18 250 MG Albuterol/ Ipratropium (Duoneb) 3 ml Q4 PRN INH 07/01/17 05:30 07/31/17 05:29 Future Hold 07/01/17 10:06 3 ML Albuterol (Ventolin Hfa Inhaler) 4 puffs Q4R INH 07/02/17 08:00 08/01/17 07:59 07/08/17 11:32 4 PUFFS Ipratropium [place] (Atrovent Hfa Inhaler) 4 puffs Q4R INH 07/02/17 08:00 08/01/17 07:59 07/08/17 11:32 4 PUFFS Heparin Sodium (Porcine) (Heparin Sq 5000 Unit/0.5ml) 5,000 unit Q8H SQ 07/02/17 14:00 08/01/17 13:59 07/08/17 13:16 5,000 UNIT Artificial Tears (Lacri-Lube Oph Oint) 1 appln Q2H PRN OPB 07/02/17 21:45 08/01/17 21:44 Enteral Nutritional Formula (Peptamen 1.5) 1,000 ml UD PRN OG 07/04/17 11:00 08/03/17 10:59 07/08/17 04:53 1,000 ML Heparin Sodium (Porcine) (Heparin 10 Unit/ ml 5 ml Flush) 5 ml PRN PRN FLUSH 07/04/17 20:45 08/03/17 20:44 Insulin Human Regular 250 units/ Sodium Chloride 252.5 ml @ 0 mls/hr Q24H IV 07/08/17 09:00 08/07/17 08:59 07/08/17 09:18 3.9 MLS/HR Methylprednisolone Sodium Succinate 40 mg/Syringe 0.64 ml @ 1.5 mls/min Q24H IV 07/09/17 09:00 08/08/17 08:59 Objective Vital Signs Date Time Temp Pulse Resp B/P (MAP) Pulse Ox O2 Delivery O2 Flow Rate FiO2 07/08/17 14:00 115 19 110/66 (81) 96 CPAP 40 Mechanical Ventilator 07/08/17 14:00 115 19 110/66 (83) 96 07/08/17 13:41 40 07/08/17 13:00 116 19 111/63 (82) 95 07/08/17 12:00 114 18 104/68 (80) 95 07/08/17 12:00 37.2 114 18 104/68 (80) 95 CPAP 40 Mechanical Ventilator 07/08/17 12:00 CPAP 40 Mechanical Ventilator 07/08/17 11:32 40 07/08/17 11:00 113 18 112/61 (80) 96 07/08/17 10:00 114 18 105/65 (76) 96 07/08/17 10:00 114 18 105/65 (78) 96 Mechanical Ventilator 40 07/08/17 09:00 111 16 113/61 (81) 97 07/08/17 08:00 111 18 120/76 (98) 99 07/08/17 08:00 36.8 111 18 120/76 (91) 99 Mechanical Ventilator 40 07/08/17 08:00 Mechanical Ventilator 40 07/08/17 07:40 40 07/08/17 07:30 40 07/08/17 07:01 107 19 107/68 (79) 97 07/08/17 07:00 107 18 97 07/08/17 06:00 110 19 108/66 (80) 97 Mechanical Ventilator 40 07/08/17 06:00 110 19 97 07/08/17 05:59 40 07/08/17 05:00 108 96 07/08/17 05:00 108 120/77 (91) 96 Mechanical Ventilator 40 07/08/17 04:00 36.5 109 121/74 (90) 96 Mechanical Ventilator 40 07/08/17 04:00 40 07/08/17 04:00 109 96 07/08/17 04:00 93 Mechanical Ventilator 40 07/08/17 03:00 107 20 123/78 (93) 96 Mechanical Ventilator 40 07/08/17 03:00 107 20 96 07/08/17 02:16 40 07/08/17 02:00 111 23 121/79 (93) 97 Mechanical Ventilator 40 07/08/17 02:00 111 23 121/79 (92) 97 07/08/17 01:00 106 22 112/72 (85) 96 Mechanical Ventilator 40 07/08/17 01:00 106 22 112/72 (90) 96 07/08/17 00:00 109 22 116/78 (91) 97 18 00:00 36.7 109 22 116/78 (91) 97 Mechanical Ventilator 40 07/07/17 23:59 94 Mechanical Ventilator 40 07/07/17 23:59 40 18 23:22 40 07/07/17 23:00 104 114/72 (86) 96 Mechanical Ventilator 40 07/07/17 23:00 104 114/72 (90) 96 07/07/17 22:32 40 07/07/17 22:00 104 25 117/74 (88) 95 Mechanical Ventilator 40 07/07/17 22:00 104 25 117/74 (91) 95 18 21:01 104 22 120/76 (98) 98 07/07/17 21:00 103 20 120/76 (91) 98 Mechanical Ventilator 40 18 20:00 98 Mechanical Ventilator 100 07/07/17 20:00 100 07/07/17 20:00 102 16 114/74 (92) 98 07/07/17 20:00 37.1 102 16 114/74 (87) 98 Mechanical Ventilator 100 18 19:13 40 07/07/17 19:00 100 20 98 Mechanical Ventilator 100 07/07/17 19:00 100 20 108/70 (86) 98 07/07/17 18:00 104 22 113/70 (84) 97 Mechanical Ventilator 40 18 18:00 104 22 113/70 (83) 97 07/07/17 17:51 40 07/07/17 17:00 106 25 120/72 (92) 97 07/07/17 16:00 103 22 97 07/07/17 16:00 36.6 102 22 109/71 (84) 97 Mechanical Ventilator 40 07/07/17 16:00 Mechanical Ventilator 50 07/07/17 16:00 40 Physical Exam General Appearance: no apparent distress Respiratory/Chest: + rhonchi, + pertinent finding (on vent) Cardiovascular: regular rate, rhythm, no murmur Abdomen: normal bowel sounds, non tender, soft, no organomegaly Neurologic/Psych: + pertinent finding (non responsive) Skin: normal color, warm/dry Laboratory Results Last 24 Hours Test 07/07/17 15:13 07/07/17 17:03 07/08/17 00:10 07/08/17 04:36 Ammonia < 10.0 umol/L Bedside Glucose 187 mg/dl 213 mg/dl 228 mg/dl Test 07/08/17 05:40 07/08/17 07:56 07/08/17 10:20 07/08/17 11:21 White Blood Count 33.71 K/uL Red Blood Count 2.42 M/uL Hemoglobin 8.4 g/dL Hematocrit 25.9 % Mean Corpuscular Volume 107.0 fL Mean Corpuscular Hemoglobin 34.7 pg Mean Corpuscular Hemoglobin Concent 32.4 g/dl Platelet Count 53 K/uL Neutrophils (%) (Auto) 89.2 % Lymphocytes (%) (Auto) 2.0 % Monocytes (%) (Auto) 1.8 % Eosinophils (%) (Auto) 0.0 % Basophils (%) (Auto) 0.6 % Neutrophils # (Auto) 30.09 K/uL Lymphocytes # (Auto) 0.66 K/uL Monocytes # (Auto) 0.61 K/uL Eosinophils # (Auto) 0.01 K/uL Basophils # (Auto) 0.19 K/uL RDW Standard Deviation 95.7 fL RDW Coefficient of Variation 26.5 % Immature Granulocyte % (Auto) 6.4 % Immature Granulocyte # (Auto) 2.15 K/uL Nucleated RBC Absolute Count (auto) 3.94 K/uL Nucleated Red Blood Cells % 11.7 % Toxic Granulation 1+ Toxic Vacuolation 1+ Platelet Estimate DECREASED Polychromasia 1+ Anisocytosis PRESENT Pappenheimer Bodies 1+ Gruber-[place] Bodies OCCASIONAL Prothrombin Time 15.3 SECONDS Prothromb Time International Ratio 1.5 Venous Blood pH 7.40 Venous Blood Partial Pressure CO2 30 mmHg Venous Blood Partial Pressure O2 42 mmHg Venous Blood HCO3 18 mmol/L Venous Blood Oxygen Saturation 74.6 % Venous Blood Base Excess -6.1 mEq/L Sodium Level 141 mmol/L Potassium Level 4.5 mmol/L Chloride Level 111 mmol/L Carbon Dioxide Level 17 mmol/L Anion Gap 13.0 mmol/L Blood Urea Nitrogen 48 mg/dl Creatinine 1.21 mg/dl Est Creatinine Clear Calc Drug Dose 68.9 ml/min Estimated GFR () 59.6 Estimated GFR (Non- 51.4 BUN/Creatinine Ratio 39.5 Random Glucose 210 mg/dl Calcium Level 7.8 mg/dl Phosphorus Level 1.6 mg/dl Magnesium Level 1.9 mg/dl Total Bilirubin 6.4 mg/dl Aspartate Amino Transf (AST/SGOT) 70 U/L Alanine Aminotransferase (ALT/SGPT) 24 U/L Alkaline Phosphatase 285 U/L Ammonia < 10.0 umol/L Total Protein 5.1 gm/dl Albumin 1.7 gm/dl Globulin 3.4 gm/dl Albumin/Globulin Ratio 0.5 Lipase 263 U/L Bedside Glucose 187 mg/dl 177 mg/dl 159 mg/dl Assessment and Plan alcoholic liver disease--LFTS trending down and INR stable to no acute liver decompensation mental status changes---ammonia yesterday and today normal so doubt hepatic encephalopathy Elevated WBC--worsening--discussed with slip caster this is unlikley GI related and continue to treat other possible sources of infection--discussed fungal infection and he states he will order blood fungal culture ascites--minimal on f/u CT 07/06/17 so doubt has SBP peripancreatic stranding on CT--could have an element of pancreatitis but this is not major issue and should continue tube feeds. Will repeat lipase in am. hepatomegaly--presumably from ETOH elevated LFTS--from ETOH elev INR from ETOH Cdiff colitis--resolving nutrition--recommend advancing tube feeds as tolerated Thickened colon on admit CT--most likely from Cdiff. 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 Also if ischemic bowel were original problem the repeat CT 07/06 would have shown more significant bowel findings (other than sigmoid diverticulosis, no other bowel findings mentioned on CT). Continue supportive care. Guarded prognosis.
--- NOTE | 2017-07-08 15:11 | DIAGNOSTIC IMAGING REPORT ---
BILATERAL LOWER EXTREMITY VENOUS DOPPLER HISTORY: Bilateral lower extremity swelling r/o DVT COMPARISON STUDY: None. FINDINGS: There is normal compressibility, flow, and augmentation within the bilateral lower extremity deep venous systems. Subcutaneous edema noted about the bilateral lower extremities. The right posterior tibial vein is not identified. IMPRESSION: No sonographic evidence of deep venous thrombosis within the right or left lower extremity. Electronically signed by: Nicolas Song M.D. 07/08/2017 3:10 PM Dictated Date/Time: 07/08/2017 3:08 PM
--- NOTE | 2017-07-08 15:29 | Medical Consult ---
Consultation Date of Consultation: Jul 08, 2017. Attending Physician: Kevon Mitchell M.D. Reason for Consultation: VAP, severe C difficile infection History of Present Illness History obtained from medical records and medical staff as patient unable to provide any history. 52-year-old female with history of cirrhosis, alcohol abuse,[place]علي, prior episode of C difficile colitis in February 2017, was admitted on June 27 with 1-1/2 weeks of progressively worsening abdominal pain, then several days of bright red blood per rectum. She was found to have evidence of severe colitis, and C difficile PCR positive. Patient was started on vancomycin and IV metronidazole , but developed worsening respiratory status with hypoxia ultimately requiring intubation. She has been ventilator dependent since then, chest x-ray, read by me, worrisome for developing ARDS. Patient has been on broad-spectrum antibiotics as well as treatment for C diff, and most recently on vancomycin, aztreonam, and levofloxacin. These were discontinued today by Critical Care Service. Blood cultures have been negative. Past Medical/Surgical History Medical Problems: (1) Abdominal pain Status: Acute (2) Acute pancreatitis Status: Acute (3) Alcohol abuse Status: Acute (4) Alcohol intoxication Status: Acute (5) Anemia Status: Acute (6) Anemia Status: Acute (7) Biliary obstruction Status: Acute (8) C. difficile colitis Status: Acute (9) C. difficile diarrhea Status: Acute (10) Chest pain Status: Acute (11) Contusion of multiple sites Status: Acute (12) Dehydration Status: Acute (13) Dehydration Status: Acute (14) Encounter for smoking cessation counseling Status: Acute (15) Epigastric abdominal pain Status: Acute (16) Fall Status: Acute (17) Fall due to slipping on ice or snow Status: Acute (18) Fracture of left distal radius Status: Acute (19) Hypocalcemia Status: Acute (20) Hypomagnesemia Status: Acute (21) Hypomagnesemia Status: Acute (22) Hypotension Status: Acute (23) Lactic acidosis Status: Acute (24) Liver failure Status: Acute (25) Pancreatitis Status: Acute Medical Problems: (1) Alcohol Abuse-Unspec (2) Anxiety (3) Anxiety State Nos (4) Asthma, Unspecified (5) C. difficile colitis (6) Calculus Of Ureter (7) Diverticulosis Colon (W/O Ment Of Hemorrhage) (8) Facial cellulitis (9) Gastroenteritis (10) GI bleed (11) Hypokalemia (12) Hypothyroidism Nos (13) Lumbago (14) Migraine Unspecified W/O Intract Mgrn W/O Status Migrainosus (15) Pancreatitis, acute (16) Severe alcohol use disorder (17) Shock circulatory Surgical Problems: (1) History of cholecystectomy (2) Hx of appendectomy Family History COPD Social History Smoking Status: Current Every Day Smoker Alcohol Use: heavy Drug Use: none Marital Status: single Occupation Status: employed Allergies Coded Allergies: Penicillins (Verified Allergy, Intermediate, RASH/HIVES, 06/27/17) Sulfa Antibiotics (Verified Allergy, Intermediate, HIVES, 06/27/17) Codeine (Verified Allergy, Unknown, ., 06/27/17) has tolerated morphine on multiple occasions while hospitalized Indomethacin (Verified Allergy, Unknown, 06/27/17) Iodine (Verified Allergy, Unknown, 06/27/17) [place] (Verified Allergy, Unknown, 06/27/17) Current Inpatient Medications Current Inpatient Medications Medications (Trade) Dose Ordered Sig/Razia Route Start Time Stop Time Status Last Admin Dose Admin Pantoprazole Sodium 40 mg/ Syringe 10 ml @ 5 mls/min BID IV 06/27/17 09:00 07/27/17 08:59 07/08/17 07:48 5 MLS/MIN Thiamine HCl 100 mg/Syringe 10 ml @ 2 mls/min Q24H IV 06/28/17 11:00 07/28/17 10:59 07/08/17 10:54 2 MLS/MIN Folic Acid 1 mg/ Syringe 10 ml @ 5 mls/min Q24H IV 06/28/17 11:00 07/28/17 10:59 07/08/17 10:54 5 MLS/MIN Lorazepam (Ativan Inj) 1 mg ONE PRN IV 06/27/17 09:15 Ondansetron HCl (Zofran Inj) 4 mg Q6H PRN IV 06/27/17 17:46 07/27/17 17:45 Hydromorphone HCl (Dilaudid Inj) 1 mg Q3HWA PRN IV 06/29/17 09:15 07/13/17 09:14 06/30/17 20:36 1 MG Vancomycin HCl (Vancomycin Oral Soln) 250 mg Q6H PO 06/30/17 10:00 07/10/17 09:59 07/08/17 15:16 250 MG Albuterol/ Ipratropium (Duoneb) 3 ml Q4 PRN INH 07/01/17 05:30 07/31/17 05:29 Future Hold 07/01/17 10:06 3 ML Albuterol (Ventolin Hfa Inhaler) 4 puffs Q4R INH 07/02/17 08:00 08/01/17 07:59 07/08/17 11:32 4 PUFFS Ipratropium [place] (Atrovent Hfa Inhaler) 4 puffs Q4R INH 07/02/17 08:00 08/01/17 07:59 07/08/17 11:32 4 PUFFS Heparin Sodium (Porcine) (Heparin Sq 5000 Unit/0.5ml) 5,000 unit Q8H SQ 07/02/17 14:00 08/01/17 13:59 07/08/17 13:16 5,000 UNIT Artificial Tears (Lacri-Lube Oph Oint) 1 appln Q2H PRN OPB 07/02/17 21:45 08/01/17 21:44 Enteral Nutritional Formula (Peptamen 1.5) 1,000 ml UD PRN OG 07/04/17 11:00 08/03/17 10:59 07/08/17 04:53 1,000 ML Heparin Sodium (Porcine) (Heparin 10 Unit/ ml 5 ml Flush) 5 ml PRN PRN FLUSH 07/04/17 20:45 08/03/17 20:44 Insulin Human Regular 250 units/ Sodium Chloride 252.5 ml @ 0 mls/hr Q24H IV 07/08/17 09:00 08/07/17 08:59 07/08/17 09:18 3.9 MLS/HR Methylprednisolone Sodium Succinate 40 mg/Syringe 0.64 ml @ 1.5 mls/min Q24H IV 07/09/17 09:00 08/08/17 08:59 Review of Systems Not obtainable because of patient's mental status Physical Exam Date Time Temp Pulse Resp B/P (MAP) Pulse Ox O2 Delivery O2 Flow Rate FiO2 07/08/17 14:00 115 19 110/66 (81) 96 CPAP 40 Mechanical Ventilator 07/08/17 14:00 115 19 110/66 (83) 96 07/08/17 13:41 40 07/08/17 13:00 116 19 111/63 (82) 95 07/08/17 12:00 114 18 104/68 (80) 95 07/08/17 12:00 37.2 114 18 104/68 (80) 95 CPAP 40 Mechanical Ventilator 07/08/17 12:00 CPAP 40 Mechanical Ventilator 07/08/17 11:32 40 07/08/17 11:00 113 18 112/61 (80) 96 07/08/17 10:00 114 18 105/65 (76) 96 07/08/17 10:00 114 18 105/65 (78) 96 Mechanical Ventilator 40 07/08/17 09:00 111 16 113/61 (81) 97 07/08/17 08:00 111 18 120/76 (98) 99 07/08/17 08:00 36.8 111 18 120/76 (91) 99 Mechanical Ventilator 40 07/08/17 08:00 Mechanical Ventilator 40 07/08/17 07:40 40 07/08/17 07:30 40 07/08/17 07:01 107 19 107/68 (79) 97 07/08/17 07:00 107 18 97 07/08/17 06:00 110 19 108/66 (80) 97 Mechanical Ventilator 40 07/08/17 06:00 110 19 97 07/08/17 05:59 40 07/08/17 05:00 108 96 07/08/17 05:00 108 120/77 (91) 96 Mechanical Ventilator 40 07/08/17 04:00 36.5 109 121/74 (90) 96 Mechanical Ventilator 40 07/08/17 04:00 40 07/08/17 04:00 109 96 07/08/17 04:00 93 Mechanical Ventilator 40 07/08/17 03:00 107 20 123/78 (93) 96 Mechanical Ventilator 40 07/08/17 03:00 107 20 96 18 02:16 40 07/08/17 02:00 111 23 121/79 (93) 97 Mechanical Ventilator 40 07/08/17 02:00 111 23 121/79 (92) 97 07/08/17 01:00 106 22 112/72 (85) 96 Mechanical Ventilator 40 07/08/17 01:00 106 22 112/72 (90) 96 3/18/18 00:00 109 22 116/78 (91) 97 18 00:00 36.7 109 22 116/78 (91) 97 Mechanical Ventilator 40 18 23:59 94 Mechanical Ventilator 40 18 23:59 40 18 23:22 40 18 23:00 104 114/72 (86) 96 Mechanical Ventilator 40 18 23:00 104 114/72 (90) 96 18 22:32 40 18 22:00 104 25 117/74 (88) 95 Mechanical Ventilator 40 18 22:00 104 25 117/74 (91) 95 18 21:01 104 22 120/76 (98) 98 07/07/17 21:00 103 20 120/76 (91) 98 Mechanical Ventilator 40 18 20:00 98 Mechanical Ventilator 100 18 20:00 100 18 20:00 102 16 114/74 (92) 98 18 20:00 37.1 102 16 114/74 (87) 98 Mechanical Ventilator 100 18 19:13 40 18 19:00 100 20 98 Mechanical Ventilator 100 18 19:00 100 20 108/70 (86) 98 18 18:00 104 22 113/70 (84) 97 Mechanical Ventilator 40 18 18:00 104 22 113/70 (83) 97 18 17:51 40 18 17:00 106 25 120/72 (92) 97 18 16:00 103 22 97 18 16:00 36.6 102 22 109/71 (84) 97 Mechanical Ventilator 40 18 16:00 Mechanical Ventilator 50 18 16:00 40 General Appearance: no apparent distress, + pertinent finding (Chronically ill appearing, sedated on ventilator) Head: normocephalic, atraumatic Eyes: normal inspection, EOMI, + abnormal sclerae exam (icteric) ENT: pharynx normal, + pertinent finding (Endotracheal and nasogastric tube in place) Neck: supple, no adenopathy, thyroid normal, trachea midline Respiratory/Chest: chest non-tender, no respiratory distress, no accessory muscle use, + crackles Cardiovascular: regular rate, rhythm, no gallop, no murmur Abdomen/GI: no pulsatile mass, + abnormal bowel sounds (Hypoactive), + distended, + hepatomegaly Back: normal inspection, no CVA tenderness Extremities/Musculoskelatal: normal inspection, normal capillary refill Neurologic/Psych: + pertinent finding (Sedated on ventilator, no obvious focal deficits) Skin: warm/dry, no rash, + jaundice Lymphatic: no adenopathy Laboratory Results Date/Time Source Procedure Growth Status 07/08/17 14:59 Blood Fungal Smear Pending Ordered 07/08/17 14:59 Blood Fungal Culture Pending Ordered Last 24 Hours Test 07/07/17 17:03 07/08/17 00:10 07/08/17 04:36 07/08/17 05:40 Bedside Glucose 187 mg/dl 213 mg/dl 228 mg/dl White Blood Count 33.71 K/uL Red Blood Count 2.42 M/uL Hemoglobin 8.4 g/dL Hematocrit 25.9 % Mean Corpuscular Volume 107.0 fL Mean Corpuscular Hemoglobin 34.7 pg Mean Corpuscular Hemoglobin Concent 32.4 g/dl Platelet Count 53 K/uL Neutrophils (%) (Auto) 89.2 % Lymphocytes (%) (Auto) 2.0 % Monocytes (%) (Auto) 1.8 % Eosinophils (%) (Auto) 0.0 % Basophils (%) (Auto) 0.6 % Neutrophils # (Auto) 30.09 K/uL Lymphocytes # (Auto) 0.66 K/uL Monocytes # (Auto) 0.61 K/uL Eosinophils # (Auto) 0.01 K/uL Basophils # (Auto) 0.19 K/uL RDW Standard Deviation 95.7 fL RDW Coefficient of Variation 26.5 % Immature Granulocyte % (Auto) 6.4 % Immature Granulocyte # (Auto) 2.15 K/uL Nucleated RBC Absolute Count (auto) 3.94 K/uL Nucleated Red Blood Cells % 11.7 % Toxic Granulation 1+ Toxic Vacuolation 1+ Platelet Estimate DECREASED Polychromasia 1+ Anisocytosis PRESENT Pappenheimer Bodies 1+ Gruber-[place] Bodies OCCASIONAL Prothrombin Time 15.3 SECONDS Prothromb Time International Ratio 1.5 Venous Blood pH 7.40 Venous Blood Partial Pressure CO2 30 mmHg Venous Blood Partial Pressure O2 42 mmHg Venous Blood HCO3 18 mmol/L Venous Blood Oxygen Saturation 74.6 % Venous Blood Base Excess -6.1 mEq/L Sodium Level 141 mmol/L Potassium Level 4.5 mmol/L Chloride Level 111 mmol/L Carbon Dioxide Level 17 mmol/L Anion Gap 13.0 mmol/L Blood Urea Nitrogen 48 mg/dl Creatinine 1.21 mg/dl Est Creatinine Clear Calc Drug Dose 68.9 ml/min Estimated GFR () 59.6 Estimated GFR (Non- 51.4 BUN/Creatinine Ratio 39.5 Random Glucose 210 mg/dl Calcium Level 7.8 mg/dl Phosphorus Level 1.6 mg/dl Magnesium Level 1.9 mg/dl Total Bilirubin 6.4 mg/dl Aspartate Amino Transf (AST/SGOT) 70 U/L Alanine Aminotransferase (ALT/SGPT) 24 U/L Alkaline Phosphatase 285 U/L Ammonia < 10.0 umol/L Total Protein 5.1 gm/dl Albumin 1.7 gm/dl Globulin 3.4 gm/dl Albumin/Globulin Ratio 0.5 Lipase 263 U/L Test 07/08/17 07:56 07/08/17 10:20 07/08/17 11:21 07/08/17 15:05 Bedside Glucose 187 mg/dl 177 mg/dl 159 mg/dl CT SCAN OF THE ABDOMEN AND PELVIS WITHOUT IV CONTRAST CLINICAL HISTORY: Cirrhosis. Colitis. COMPARISON STUDY: Abdominal CT dated 06/29/2017. TECHNIQUE: CT scan of the abdomen and pelvis is performed from the lung bases to the proximal femora. Images are reviewed in the axial, sagittal, and coronal planes. IV contrast was not administered for this examination as per the referring clinician. Note that the examination was performed in significantly suboptimal fashion without oral and IV contrast. The examination is also degraded by motion artifact, and by streak artifact from the arms which could not be elevated above the abdomen. A dose lowering technique was utilized adhering to the principles of ALARA. CT DOSE: 1770.52 mGy.cm FINDINGS: Lung bases: The heart is normal in size and without pericardial effusion. There are small pleural effusions with dense bibasilar consolidation. Groundglass changes seen throughout both lung bases. Numerous calcified granulomas are seen at the lung bases. The tip of a PICC line terminates at the cavoatrial junction. Liver: The unenhanced liver is enlarged, measuring 26 cm in length. The liver demonstrates diffusely diminished attenuation consistent with severe hepatic steatosis. There is no intrahepatic biliary ductal dilatation. A 1.1 cm hyperdense nodule is suggested in the right lobe on image #212, possibly representing a small hemangioma. Gallbladder: Surgically absent noting clips in the gallbladder fossa. Spleen: Normal in size and attenuation. Pancreas: The pancreas is moderately atrophic. Mild peripancreatic stranding and fluid is suggested. Adrenal glands: Unremarkable. Kidneys: The unenhanced kidneys are no bowel obstruction is identified. Atrophic And without hydronephrosis. There are no renal calculi identified. There is no evidence of contour deforming renal mass lesion. Abdominal vasculature: The abdominal aorta is normal in course and caliber noting mild atherosclerotic calcification. Stomach and bowel: An enteric tube terminates in the distal stomach. There is mild sigmoid diverticulosis without CT evidence of acute diverticulitis. The appendix is not visualized. Peritoneum: There is a small volume of abdominopelvic ascites. No intraperitoneal free air is seen. Lymphadenopathy: None. Pelvic viscera: The bladder is partially decompressed around a Kovacs catheter. Foci of intraluminal gas are likely related to instrumentation. The uterus is surgically absent. Skeletal structures: The skeletal structures are osteopenic. No lytic or blastic lesions are seen. Soft tissues: There is diffuse anasarca of the body wall. IMPRESSION: 1. Suboptimal examination without oral and IV contrast. The examination is also degraded by streak and motion artifact. 2. There is diffuse anasarca of the body wall, which has increased from 06/29/2017. 3. Small pleural effusions with dense bibasilar consolidation. This could present atelectasis and/or pneumonia. Clinical correlation will be required. 4. Diffuse ground glass change is seen in the lower lobes. This could present a component of pulmonary edema versus an infectious/inflammatory pneumonitis. Again, clinical correlation will be required. 5. There is a small volume of abdominopelvic ascites, increased from 06/29/2017. 6. Hepatomegaly and severe hepatic steatosis. 7. Mild peripancreatic stranding and fluid is suggested. Correlate clinically and with serum amylase/lipase levels for evidence of pancreatitis. 8. Additional findings as above. Assessment & Plan 52-year-old female critically ill with ischemic colitis versus C difficile infection, probable developing ARDS with respiratory failure, with rising white blood cell count. Patient has received prolonged course of IV antibiotics with negative bacterial cultures, so agree with discontinuation of most of her antibiotics. Would continue aggressive treatment for C difficile infection but would hold on addition of fidaxomicin, and will need to give consideration of empiric antifungal therapy such as with caspofungin if white count continues to increase pending further culture results. Will discuss further with all involved.
--- NOTE | 2017-07-08 20:44 | DIAGNOSTIC IMAGING REPORT ---
BRAIN WITHOUT CONTRAST HISTORY: 52 years-old Female acute encephalopathy, hx ARDS and severe sepsis acute encephalopathy COMPARISON: CT head 07/06/2017 TECHNIQUE: Multiplanar multisequence MRI of the brain was obtained without contrast FINDINGS: The large [id number] image consultant localizer images demonstrate no gross abnormality. There is no restricted diffusion to suggest acute or subacute infarction. Midline structures of the brain stem, optic chiasm, pituitary gland and infundibulum appear unremarkable on the sagittal T1 series. 4 mm pineal gland cyst is noted. No cerebellar tonsillar herniation. Degenerative changes are seen within the cervical spine. There is moderately increased T2/FLAIR signal noted involving the splenium of the corpus callosum with slightly decreased T1 signal, nicely seen on image 13 series 5 and image 17 of series 6 with T2 shine through seen on the diffusion-weighted sequence measuring up to 3.1 cm in transverse dimension. No discrete mass lesion identified. There is no acute intracranial hemorrhage or midline shift. There are a few patchy areas of increased T2/FLAIR signal within the subcortical and periventricular white matter suggesting minimal chronic microvascular ischemic changes. 8 x 5 x 6 mm focal area of increased T2/FLAIR signal is noted within the central luisito demonstrating isointensity on the T1 series, image 9 of series 5 and image 15 series 6. Prominent perivascular spaces vs areas of remote lacunar infarction are seen involving the bilateral lentiform nuclei. The major flow voids at the level of the skull base appear patent. Moderate size left mastoid effusion. Mild ethmoid, maxillary and sphenoid sinus disease. Bilateral orbits, scalp, calvarium and soft tissues are unremarkable. Endotracheal tube is partially imaged. IMPRESSION: 1. Moderately increased T2/FLAIR signal involving the splenium of the corpus callosum with additional focal 8 mm area of T2/FLAIR prolongation within the central luisito. No evidence of associated hemorrhage, midline shift or acute infarction. These findings are nonspecific with differential considerations including but not limited to demyelinating process, metabolic disease, neoplastic etiology such as low-grade glioma, or infectious encephalopathy among other etiologies. Many transient lesions specifically involving the splenium of the corpus callosum have been reported including post seizure activity, metabolic disturbance with hypoglycemia or hepatic encephalopathy as well as abnormal drug interactions. Clinical correlation required. 2. Mild patchy signal abnormality within the periventricular white matter suggests mild chronic microvascular ischemic changes. 3. Moderate left mastoid effusion with mild paranasal sinus disease. The above report was generated using voice recognition software. It may contain grammatical, syntax or spelling errors. Electronically signed by: Nicolas Song M.D. 07/09/2017 8:57 AM Dictated Date/Time: 07/08/2017 7:12 PM
--- NOTE | 2017-07-08 23:46 | Progress Note ---
Subjective Date of Service: Jul 08, 2017. Subjective Unable to obtain a history from patient as she remains 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 and intubated. Problem List Medical Problems: (1) Abdominal pain Status: Acute (2) Acute pancreatitis Status: Acute (3) Alcohol abuse Status: Acute (4) Alcohol intoxication Status: Acute (5) Anemia Status: Acute (6) Anemia Status: Acute (7) Biliary obstruction Status: Acute (8) C. difficile colitis Status: Acute (9) C. difficile diarrhea Status: Acute (10) Chest pain Status: Acute (11) Contusion of multiple sites Status: Acute (12) Dehydration Status: Acute (13) Dehydration Status: Acute (14) Encounter for smoking cessation counseling Status: Acute (15) Epigastric abdominal pain Status: Acute (16) Fall Status: Acute (17) Fall due to slipping on ice or snow Status: Acute (18) Fracture of left distal radius Status: Acute (19) Hypocalcemia Status: Acute (20) Hypomagnesemia Status: Acute (21) Hypomagnesemia Status: Acute (22) Hypotension Status: Acute (23) Lactic acidosis Status: Acute (24) Liver failure Status: Acute (25) Pancreatitis Status: Acute Review of Systems All Other Systems: Reviewed and Negative Objective Vital Signs Date Time Temp Pulse Resp B/P (MAP) Pulse Ox O2 Delivery O2 Flow Rate FiO2 07/08/17 23:02 40 07/08/17 23:00 106 14 95/62 (73) 96 CPAP 40 Mechanical Ventilator 07/08/17 23:00 106 14 95/62 (72) 96 07/08/17 22:00 109 13 104/62 (78) 96 07/08/17 22:00 36.5 109 13 104/62 (76) 96 CPAP 40 Mechanical Ventilator 07/08/17 21:00 107 15 104/65 (78) 96 CPAP 40 Mechanical Ventilator 07/08/17 21:00 107 15 104/65 (74) 96 07/08/17 20:00 CPAP 40 Mechanical Ventilator 07/08/17 20:00 37.7 111 17 104/65 (78) 96 CPAP 40 Mechanical Ventilator 07/08/17 20:00 111 17 104/65 (76) 96 07/08/17 19:02 40 07/08/17 19:00 111 17 103/62 (76) 96 CPAP 40 Mechanical Ventilator 07/08/17 19:00 111 17 103/62 (75) 96 18 18:00 115 17 107/62 (77) 96 CPAP 40 Mechanical Ventilator 07/08/17 18:00 115 17 107/62 (75) 96 18 17:00 116 18 111/62 (89) 96 07/08/17 16:00 37.4 115 19 109/65 (80) 96 CPAP 40 Mechanical Ventilator 07/08/17 16:00 CPAP 40 Mechanical Ventilator 07/08/17 16:00 115 19 109/65 (82) 96 07/08/17 15:28 40 07/08/17 14:00 115 19 110/66 (81) 96 CPAP 40 Mechanical Ventilator 07/08/17 14:00 115 19 110/66 (83) 96 07/08/17 13:41 40 07/08/17 13:00 116 19 111/63 (82) 95 07/08/17 12:00 114 18 104/68 (80) 95 07/08/17 12:00 37.2 114 18 104/68 (80) 95 CPAP 40 Mechanical Ventilator 07/08/17 12:00 CPAP 40 Mechanical Ventilator 07/08/17 11:32 40 07/08/17 11:00 113 18 112/61 (80) 96 07/08/17 10:00 114 18 105/65 (76) 96 07/08/17 10:00 114 18 105/65 (78) 96 Mechanical Ventilator 40 07/08/17 09:00 111 16 113/61 (81) 97 07/08/17 08:00 111 18 120/76 (98) 99 07/08/17 08:00 36.8 111 18 120/76 (91) 99 Mechanical Ventilator 40 07/08/17 08:00 Mechanical Ventilator 40 07/08/17 07:40 40 07/08/17 07:30 40 07/08/17 07:01 107 19 107/68 (79) 97 07/08/17 07:00 107 18 97 07/08/17 06:00 110 19 108/66 (80) 97 Mechanical Ventilator 40 07/08/17 06:00 110 19 97 07/08/17 05:59 40 07/08/17 05:00 108 96 07/08/17 05:00 108 120/77 (91) 96 Mechanical Ventilator 40 07/08/17 04:00 36.5 109 121/74 (90) 96 Mechanical Ventilator 40 07/08/17 04:00 40 07/08/17 04:00 109 96 07/08/17 04:00 93 Mechanical Ventilator 40 07/08/17 03:00 107 20 123/78 (93) 96 Mechanical Ventilator 40 07/08/17 03:00 107 20 96 07/08/17 02:16 40 07/08/17 02:00 111 23 121/79 (93) 97 Mechanical Ventilator 40 07/08/17 02:00 111 23 121/79 (92) 97 07/08/17 01:00 106 22 112/72 (85) 96 Mechanical Ventilator 40 07/08/17 01:00 106 22 112/72 (90) 96 07/08/17 00:00 109 22 116/78 (91) 97 07/08/17 00:00 36.7 109 22 116/78 (91) 97 Mechanical Ventilator 40 07/07/17 23:59 94 Mechanical Ventilator 40 07/07/17 23:59 40 Physical Exam Comments: General Appearance: no apparent distress, intubated Neck: supple, no adenopathy, no JVD, trachea midline Respiratory/Chest: chest non-tender, no respiratory distress, no accessory muscle use, improved Cardiovascular: regular rate, rhythm, no edema, no gallop, no JVD, no murmur Abdomen: no organomegaly, + abnormal bowel sounds (hypoactive), + distended, softer than yesterday Extremities: normal range of motion, non-tender, normal inspection, no pedal edema, no calf tenderness, pelvis stable Neurologic/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: 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, + pertinent finding (sedated on Fentanyl) Skin: normal color, warm/dry, no rash Laboratory Results Last 24 Hours Test 07/08/17 00:10 07/08/17 04:36 07/08/17 05:40 07/08/17 07:56 Bedside Glucose 213 mg/dl 228 mg/dl 187 mg/dl White Blood Count 33.71 K/uL Red Blood Count 2.42 M/uL Hemoglobin 8.4 g/dL Hematocrit 25.9 % Mean Corpuscular Volume 107.0 fL Mean Corpuscular Hemoglobin 34.7 pg Mean Corpuscular Hemoglobin Concent 32.4 g/dl Platelet Count 53 K/uL Neutrophils (%) (Auto) 89.2 % Lymphocytes (%) (Auto) 2.0 % Monocytes (%) (Auto) 1.8 % Eosinophils (%) (Auto) 0.0 % Basophils (%) (Auto) 0.6 % Neutrophils # (Auto) 30.09 K/uL Lymphocytes # (Auto) 0.66 K/uL Monocytes # (Auto) 0.61 K/uL Eosinophils # (Auto) 0.01 K/uL Basophils # (Auto) 0.19 K/uL RDW Standard Deviation 95.7 fL RDW Coefficient of Variation 26.5 % Immature Granulocyte % (Auto) 6.4 % Immature Granulocyte # (Auto) 2.15 K/uL Nucleated RBC Absolute Count (auto) 3.94 K/uL Nucleated Red Blood Cells % 11.7 % Toxic Granulation 1+ Toxic Vacuolation 1+ Platelet Estimate DECREASED Polychromasia 1+ Anisocytosis PRESENT Pappenheimer Bodies 1+ [place] Bodies OCCASIONAL Prothrombin Time 15.3 SECONDS Prothromb Time International Ratio 1.5 Venous Blood pH 7.40 Venous Blood Partial Pressure CO2 30 mmHg Venous Blood Partial Pressure O2 42 mmHg Venous Blood HCO3 18 mmol/L Venous Blood Oxygen Saturation 74.6 % Venous Blood Base Excess -6.1 mEq/L Sodium Level 141 mmol/L Potassium Level 4.5 mmol/L Chloride Level 111 mmol/L Carbon Dioxide Level 17 mmol/L Anion Gap 13.0 mmol/L Blood Urea Nitrogen 48 mg/dl Creatinine 1.21 mg/dl Est Creatinine Clear Calc Drug Dose 68.9 ml/min Estimated GFR () 59.6 Estimated GFR (Non- 51.4 BUN/Creatinine Ratio 39.5 Random Glucose 210 mg/dl Calcium Level 7.8 mg/dl Phosphorus Level 1.6 mg/dl Magnesium Level 1.9 mg/dl Total Bilirubin 6.4 mg/dl Aspartate Amino Transf (AST/SGOT) 70 U/L Alanine Aminotransferase (ALT/SGPT) 24 U/L Alkaline Phosphatase 285 U/L Ammonia < 10.0 umol/L Total Protein 5.1 gm/dl Albumin 1.7 gm/dl Globulin 3.4 gm/dl Albumin/Globulin Ratio 0.5 Lipase 263 U/L Test 07/08/17 10:20 07/08/17 11:21 07/08/17 12:20 07/08/17 13:18 Bedside Glucose 177 mg/dl 159 mg/dl 150 mg/dl 160 mg/dl Test 07/08/17 15:19 07/08/17 15:25 07/08/17 17:16 07/08/17 19:29 Bedside Glucose 171 mg/dl 144 mg/dl 143 mg/dl Assessment and Plan 52 yo female with history of alcohol abuse, cirrhosis, c diff colitis who presented with weakness, hypotension, bloody diarrhea, KEVIN, acidosis - Septic shock: suspected source is pneumonia, likely aspiration vs colitis Source of sepsis: unclear WBC continue to rise in the 30s Acities minimal so doubt SBP Concern over Vent. associated pneumonia: Started on Aztreonam, Linezolid day 2, and Levofloxacin on 07/06, day 3 In regards to colitis: Surgery is recommending possible total colectomy, however given her critical state and unclear that she may have more of a respiratory issue, pressors, bicarb drip. This procedure is being held for now. In regards to colitis, less distended abdomen. Pressors have been stopped follow up blood cultures drawn today continue IV Flagyl, Cefepime. Continue NH and PO Vanco. 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 MELD score is 20 - Lactic acidosis: likely from shock, monitor LA, fluid support - KEVIN: Cr is improved but urine output is not adequate 775ml out today despite 2200cc input via IV continue to monitor Cr q4, follow UO in gil metabolic acidosis appears to be improving. - Anemia: HB remains above 8 stable. will continue to monitor h/o slow GI bleeding for weeks per family transfused 2 units PRBC initially, responded well, no further signs of bleeding - Hypokalemia: resolved, continue to monitor - Hypophosphatemia: low today, replace - Hypomagnesemia: low today, replace - Alcoholism, last drink was two days prior to admission place on withdrawal protocol, had some tremors on admission, resolved for time being thiamine and folate daily no signs of DT's - Hyperbilirubinemia: hepatic steatosis on imaging, likely developing cirrhosis with alcoholism history supportive care, continue to monitor, bili down to 8, INR is 1.5 Continued [facility] stay due to: multiple IV medications needed Discharge planning: uncertain
[2017-07-09] VITALS (19 sets, daily range): BP systolic 96–131; BP diastolic 58–85; PULSE 90–108; TEMP 36.5–37.9; O2SAT 92–97
[2017-07-09] MEDS: IPRATROPIUM BROMIDE HFA INHALER INH SCH ×5 (03:15→20:11)
[2017-07-09] MEDS: ALBUTEROL HFA 8 GM INHALER INH SCH ×5 (03:15→20:11)
[2017-07-09] MEDS: VANCOMYCIN HCL 250 MG/5 ML SOLN PO SCH ×3 (04:42→17:42)
[2017-07-09] MEDS: PEPTAMEN 1.5 CAL 1000ML BAG OG PRN (04:52)
[2017-07-09] MEDS: HEPARIN SOD 5000 UNIT/0.5 ML CARP SQ SCH (06:01)
[2017-07-09 06:18] LABS: INR 1.4 (0.9-1.1)
[2017-07-09 06:29] LABS: ALBUMIN 1.5 gm/dl (3.4-5.0); CALCIUM 7.9 mg/dl (8.5-10.1); CREATININE 1.17 mg/dl (0.60-1.20); POTASSIUM 4.4 mmol/L (3.5-5.1)
[2017-07-09 06:32] LABS: BASO % 0.4 %; BASO ABS # 0.17 K/uL (0-0.2); EOS % 0.1 %; EOS ABS # 0.04 K/uL (0-0.5); HEMATOCRIT 25.1 % (37-47); IG# 2.09 K/uL (0.00-0.02); LYMPH % 3.2 %; MEAN CELL VOLUME 110.1 fL (80-100); MEAN CORPUSCULAR HEMOGLOBIN 35.1 pg (25-34); MEAN CORPUSCULAR HGB CONC 31.9 g/dl (32-36); MONO % 1.7 %; MONO ABS # 0.69 K/uL (0.11-0.59); NEUT % 89.5 %; NEUT ABS # 36.53 K/uL (1.4-6.5); NUCLEATED RED BLOOD CELL ABS 4.05 K/uL (0-0); PLATELET COUNT 57 K/uL (130-400); RED CELL DISTRIBUTION WIDTH CV 28.1 % (11.5-14.5); RED CELL DISTRIBUTION WIDTH SD 106.6 fL (36.4-46.3); WHITE BLOOD COUNT 40.82 K/uL (4.8-10.8)
[2017-07-09 06:37] LABS: TOTAL PROTEIN 4.8 gm/dl (6.4-8.2)
--- NOTE | 2017-07-09 07:35 | DIAGNOSTIC IMAGING REPORT ---
CHEST ONE VIEW PORTABLE CLINICAL HISTORY: 52 years-old Female presenting with Intubation. TECHNIQUE: Portable upright AP view of the chest was obtained. COMPARISON: 07/08/2017. FINDINGS: Endotracheal tube terminates in the lower thoracic trachea 1.2 cm from the [place]. Right upper extremity PICC terminates in the right atrium. Nasogastric tube descends below the diaphragm, terminus not visualized. Cardiac silhouette mildly enlarged. Pulmonary vascular prominence. Bronchial wall thickening. Hazy and reticular mid to basilar predominant opacities. Significant heterogeneity of the right lung though this may in part be artifactual due to the presence of numerous overlying external leads. Layering pleural effusions may be present. No large pneumothorax. Osseous structures normal. Upper abdomen normal. IMPRESSION: 1. Endotracheal tube terminates in the lower thoracic trachea 1.2 cm from the [place]. Slight retraction could be considered. 2. Cardiomegaly with volume overload and possible mild pulmonary edema. 3. Small layering pleural effusions may be present. The report will be called/faxed according to standard departmental protocol. Electronically signed by: Brice Noble M.D. 07/09/2017 7:33 AM Dictated Date/Time: 07/09/2017 7:31 AM
[2017-07-09] MEDS ORDERED: METHYLPREDNISOLONE IV 40 MG in SYRINGE 0 ML IV SCH (09:00)
[2017-07-09] MEDS ORDERED: NALOXONE HCL 0.4 MG/1 ML VIAL/CARP ONE (09:08)
[2017-07-09] MEDS ORDERED: FLUMAZENIL 0.1 MG/1 ML 10 ML VIAL IV ONE (09:08)
[2017-07-09] MEDS: PANTOprazole INJ 40 MG in SYRINGE 0 ML IV SCH ×2 (09:53→20:43)
[2017-07-09] MEDS: INSULIN REGULAR 250 UNITS in SODIUM CHLORIDE 0.9% 250ML 250 ML IV SCH (09:53)
[2017-07-09] MEDS ORDERED: NURSING VERBAL MED ORDER ONE ×2 (10:30→14:45)
--- NOTE | 2017-07-09 10:30 | Neurology Progress Notes ---
Neurology Progress Note Date of Service Jul 09, 2017. Subjective Patient has been largely 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. She was given Narcan by Dr. Gonzalez, and she has been rousing a little more. MRI of the brain without contrast, done yesterday, shows interesting signal change diffusely in the splenium of the corpus callosum, bilateral basal ganglia , and cerebellar peduncles. There is a mid brain central lesion as well. I reviewed the films and report with the radiologist this morning. Patient has had no seizure activity or significant neurologic changes over the last 24-48 hours otherwise. Objective Date Time Temp Pulse Resp B/P (MAP) Pulse Ox O2 Delivery O2 Flow Rate FiO2 07/09/17 09:14 40 07/09/17 06:00 94 12 109/59 (76) 96 CPAP 40 Mechanical Ventilator 07/09/17 06:00 94 12 109/59 (77) 96 07/09/17 05:41 40 07/09/17 05:00 106 16 96/69 (80) 97 07/09/17 05:00 106 16 96/69 (78) 97 CPAP 40 Mechanical Ventilator 07/09/17 04:00 37.1 107 20 95 CPAP 40 Mechanical Ventilator 07/09/17 04:00 CPAP 40 Mechanical Ventilator 07/09/17 04:00 107 20 95 07/09/17 03:15 40 07/09/17 03:00 107 16 105/60 (75) 96 CPAP 40 Mechanical Ventilator 07/09/17 03:00 107 16 105/60 (80) 96 07/09/17 02:00 108 17 100/68 (80) 96 07/09/17 02:00 108 17 100/68 (79) 96 CPAP 40 Mechanical Ventilator 07/09/17 01:00 106 16 99/64 (77) 96 07/09/17 01:00 106 16 99/64 (76) 96 CPAP 40 Mechanical Ventilator 07/09/17 00:00 36.5 108 16 102/64 (77) 96 CPAP 40 Mechanical Ventilator 07/08/17 23:59 CPAP 40 Mechanical Ventilator 07/08/17 23:02 40 07/08/17 23:00 106 14 95/62 (73) 96 CPAP 40 Mechanical Ventilator 07/08/17 23:00 106 14 95/62 (72) 96 07/08/17 22:00 109 13 104/62 (78) 96 07/08/17 22:00 36.5 109 13 104/62 (76) 96 CPAP 40 Mechanical Ventilator 07/08/17 21:00 107 15 104/65 (78) 96 CPAP 40 Mechanical Ventilator 07/08/17 21:00 107 15 104/65 (74) 96 07/08/17 20:00 CPAP 40 Mechanical Ventilator 07/08/17 20:00 37.7 111 17 104/65 (78) 96 CPAP 40 Mechanical Ventilator 07/08/17 20:00 111 17 104/65 (76) 96 07/08/17 19:02 40 07/08/17 19:00 111 17 103/62 (76) 96 CPAP 40 Mechanical Ventilator 07/08/17 19:00 111 17 103/62 (75) 96 07/08/17 18:00 115 17 107/62 (77) 96 CPAP 40 Mechanical Ventilator 07/08/17 18:00 115 17 107/62 (75) 96 07/08/17 17:00 116 18 111/62 (89) 96 07/08/17 16:00 37.4 115 19 109/65 (80) 96 CPAP 40 Mechanical Ventilator 07/08/17 16:00 CPAP 40 Mechanical Ventilator 07/08/17 16:00 115 19 109/65 (82) 96 07/08/17 15:28 40 07/08/17 14:00 115 19 110/66 (81) 96 CPAP 40 Mechanical Ventilator 07/08/17 14:00 115 19 110/66 (83) 96 07/08/17 13:41 40 07/08/17 13:00 116 19 111/63 (82) 95 07/08/17 12:00 114 18 104/68 (80) 95 07/08/17 12:00 37.2 114 18 104/68 (80) 95 CPAP 40 Mechanical Ventilator 07/08/17 12:00 CPAP 40 Mechanical Ventilator 07/08/17 11:32 40 07/08/17 11:00 113 18 112/61 (80) 96 Last 24 Hours Test 07/08/17 10:20 07/08/17 11:21 07/08/17 12:20 07/08/17 13:18 Bedside Glucose 177 mg/dl 159 mg/dl 150 mg/dl 160 mg/dl Test 07/08/17 15:19 07/08/17 15:25 07/08/17 17:16 07/08/17 19:29 Bedside Glucose 171 mg/dl 144 mg/dl 143 mg/dl Test 07/08/17 23:49 07/09/17 03:23 07/09/17 05:55 Bedside Glucose 140 mg/dl 127 mg/dl White Blood Count 40.82 K/uL Red Blood Count 2.28 M/uL Hemoglobin 8.0 g/dL Hematocrit 25.1 % Mean Corpuscular Volume 110.1 fL Mean Corpuscular Hemoglobin 35.1 pg Mean Corpuscular Hemoglobin Concent 31.9 g/dl Platelet Count 57 K/uL Neutrophils (%) (Auto) 89.5 % Lymphocytes (%) (Auto) 3.2 % Monocytes (%) (Auto) 1.7 % Eosinophils (%) (Auto) 0.1 % Basophils (%) (Auto) 0.4 % Neutrophils # (Auto) 36.53 K/uL Lymphocytes # (Auto) 1.30 K/uL Monocytes # (Auto) 0.69 K/uL Eosinophils # (Auto) 0.04 K/uL Basophils # (Auto) 0.17 K/uL RDW Standard Deviation 106.6 fL RDW Coefficient of Variation 28.1 % Immature Granulocyte % (Auto) 5.1 % Immature Granulocyte # (Auto) 2.09 K/uL Nucleated RBC Absolute Count (auto) 4.05 K/uL Nucleated Red Blood Cells % 9.9 % Platelet Estimate DECREASED Polychromasia 1+ Anisocytosis PRESENT Macrocytosis PRESENT Pappenheimer Bodies 1+ Gruber-[place] Bodies 1+ Prothrombin Time 14.1 SECONDS Prothromb Time International Ratio 1.4 Venous Blood pH 7.34 Venous Blood Partial Pressure CO2 39 mmHg Venous Blood Partial Pressure O2 41 mmHg Venous Blood HCO3 21 mmol/L Venous Blood Oxygen Saturation 71.6 % Venous Blood Base Excess -4.9 mEq/L Sodium Level 143 mmol/L Potassium Level 4.4 mmol/L Chloride Level 111 mmol/L Carbon Dioxide Level 21 mmol/L Anion Gap 11.0 mmol/L Blood Urea Nitrogen 55 mg/dl Creatinine 1.17 mg/dl Est Creatinine Clear Calc Drug Dose 71.3 ml/min Estimated GFR () 62.0 Estimated GFR (Non- 53.5 BUN/Creatinine Ratio 46.6 Random Glucose 110 mg/dl Calcium Level 7.9 mg/dl Phosphorus Level 2.0 mg/dl Magnesium Level 1.7 mg/dl Total Bilirubin 6.1 mg/dl Aspartate Amino Transf (AST/SGOT) 80 U/L Alanine Aminotransferase (ALT/SGPT) 23 U/L Alkaline Phosphatase 264 U/L Total Protein 4.8 gm/dl Albumin 1.5 gm/dl Globulin 3.3 gm/dl Albumin/Globulin Ratio 0.5 Lipase 281 U/L Imaging: [~ rep ct add3]] BRAIN WITHOUT CONTRAST HISTORY: 52 years-old Female acute encephalopathy, hx ARDS and severe sepsis acute encephalopathy COMPARISON: CT head 07/06/2017 TECHNIQUE: Multiplanar multisequence MRI of the brain was obtained without contrast FINDINGS: The large [id number] straw hat presser localizer images demonstrate no gross abnormality. There is no restricted diffusion to suggest acute or subacute infarction. Midline structures of the brain stem, optic chiasm, pituitary gland and infundibulum appear unremarkable on the sagittal T1 series. 4 mm pineal gland cyst is noted. No cerebellar tonsillar herniation. Degenerative changes are seen within the cervical spine. There is moderately increased T2/FLAIR signal noted involving the splenium of the corpus callosum with slightly decreased T1 signal, nicely seen on image 13 series 5 and image 17 of series 6 with T2 shine through seen on the diffusion-weighted sequence measuring up to 3.1 cm in transverse dimension. No discrete mass lesion identified. There is no acute intracranial hemorrhage or midline shift. There are a few patchy areas of increased T2/FLAIR signal within the subcortical and periventricular white matter suggesting minimal chronic microvascular ischemic changes. 8 x 5 x 6 mm focal area of increased T2/FLAIR signal is noted within the central luisito demonstrating isointensity on the T1 series, image 9 of series 5 and image 15 series 6. Prominent perivascular spaces vs areas of remote lacunar infarction are seen involving the bilateral lentiform nuclei. The major flow voids at the level of the skull base appear patent. Moderate size left mastoid effusion. Mild ethmoid, maxillary and sphenoid sinus disease. Bilateral orbits, scalp, calvarium and soft tissues are unremarkable. Endotracheal tube is partially imaged. IMPRESSION: 1. Moderately increased T2/FLAIR signal involving the splenium of the corpus callosum with additional focal 8 mm area of T2/FLAIR prolongation within the central luisito. No evidence of associated hemorrhage, midline shift or acute infarction. These findings are nonspecific with differential considerations including but not limited to demyelinating process, metabolic disease, neoplastic etiology such as low-grade glioma, or infectious encephalopathy among other etiologies. Many transient lesions specifically involving the splenium of the corpus callosum have been reported including post seizure activity, metabolic disturbance with hypoglycemia or hepatic encephalopathy as well as abnormal drug interactions. Clinical correlation required. 2. Mild patchy signal abnormality within the periventricular white matter suggests mild chronic microvascular ischemic changes. 3. Moderate left mastoid effusion with mild paranasal sinus disease. The above report was generated using voice recognition software. It may contain grammatical, syntax or spelling errors. Electronically signed by: Nicolas Song M.D. 07/09/2017 8:57 AM Dictated Date/Time: 07/08/2017 7:12 PM Exam: The patient has some spontaneous movement of her eyes, mouth, head, and arms. She will turn her head and make an attempted eye opening with loud voice and gentle shaking. She was not completely open her eyes however but they open passively. Pupils are 4 mm bilaterally reactive to light. Eyes seem conjugate horizontally She seems to follow a few simple one-step commands particularly with moving her left upper extremity. Unfortunately, this is not consistent. Tone is symmetrical in the limbs being somewhat decreased. She withdraws to deep pain in her upper extremities bilaterally, but somewhat delayed on the right compared to the left. She grimaces with pain in the upper extremities as well. She does not grimace or withdrawal with deep pain in the lower extremities. Reflexes are absent in all 4 limbs. Toes are equivocal on the right and seemingly upgoing on left plantar stimulation. Current Inpatient Medications Medications (Trade) Dose Ordered Sig/Razia Route Start Time Stop Time Status Last Admin Dose Admin Pantoprazole Sodium 40 mg/ Syringe 10 ml @ 5 mls/min BID IV 06/27/17 09:00 07/27/17 08:59 07/09/17 09:53 5 MLS/MIN Thiamine HCl 100 mg/Syringe 10 ml @ 2 mls/min Q24H IV 06/28/17 11:00 07/28/17 10:59 07/08/17 10:54 2 MLS/MIN Folic Acid 1 mg/ Syringe 10 ml @ 5 mls/min Q24H IV 06/28/17 11:00 07/28/17 10:59 07/08/17 10:54 5 MLS/MIN Lorazepam (Ativan Inj) 1 mg ONE PRN IV 06/27/17 09:15 Ondansetron HCl (Zofran Inj) 4 mg Q6H PRN IV 06/27/17 17:46 07/27/17 17:45 Hydromorphone HCl (Dilaudid Inj) 1 mg Q3HWA PRN IV 06/29/17 09:15 07/13/17 09:14 06/30/17 20:36 1 MG Albuterol/ Ipratropium (Duoneb) 3 ml Q4 PRN INH 07/01/17 05:30 07/31/17 05:29 Future Hold 07/01/17 10:06 3 ML Albuterol (Ventolin Hfa Inhaler) 4 puffs Q4R INH 07/02/17 08:00 08/01/17 07:59 07/09/17 07:20 4 PUFFS Ipratropium [place] (Atrovent Hfa Inhaler) 4 puffs Q4R INH 07/02/17 08:00 08/01/17 07:59 07/09/17 07:20 4 PUFFS Artificial Tears (Lacri-Lube Oph Oint) 1 appln Q2H PRN OPB 07/02/17 21:45 08/01/17 21:44 Enteral Nutritional Formula (Peptamen 1.5) 1,000 ml UD PRN OG 07/04/17 11:00 08/03/17 10:59 07/09/17 04:52 1,000 ML Heparin Sodium (Porcine) (Heparin 10 Unit/ ml 5 ml Flush) 5 ml PRN PRN FLUSH 07/04/17 20:45 08/03/17 20:44 Insulin Human Regular 250 units/ Sodium Chloride 252.5 ml @ 0 mls/hr Q24H IV 07/08/17 09:00 08/07/17 08:59 07/09/17 09:53 3.9 MLS/HR Vancomycin HCl (Vancomycin Oral Soln) 500 mg Q6H PO 07/09/17 12:00 07/10/17 11:59 Raspberry (Raspberry Syrup 5ml Cup) 5 ml Q6H PO 07/09/17 12:00 07/23/17 11:59 Impression 1. Acute, severe encephalopathy This is likely multifactorial from direct alcohol effect on the brain, hepatic encephalopathy with liver failure, and sepsis. 2. Abnormal MRI of the brain with multiple symmetrical midline lesions MRI of the brain is consistent mostly with metabolic/chronic alcoholic origins. 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 3. This patient seems to have a peripheral neuropathy with decreased reaction in the feet and absent reflexes throughout. 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 Plan 1. Continue treating her metabolic and infectious/septic problems as you are doing 2.. Consider adding B vitamins if not already done , as MBD is associated with multiple B vitamin deficiencies (such as B12, folate, and B1) Sometimes, steroids are used as a treatment to decrease cerebral edema with this disease as well. However, she has received steroids. Caution with seizure provoking medication, as patients with MBD are at increased risk for seizures. 3. I will follow patient while she is in the hospital make additional recommendations pending her clinical course. 4. Consider B12, folate, and methylmalonic acid levels prior to initiating B vitamins. I see no reason for additional neurologic testing or treatment recommendations at this time. There is no need for an LP at this time. I spent a total of 65 minutes with this patient including records for review, discussion of the MRI with Radiology, the discussion of the case with Dr. Gonzalez , and direct bedside evaluation
[2017-07-09] MEDS: CASPOFUNGIN INJ 50 MG in SODIUM CHLORIDE 0.9% 250ML 250 ML IV SCH (12:34)
[2017-07-09] MEDS: FUROSEMIDE INJ 100 MG in DEXTROSE 5% 100ML 90 ML IV SCH ×2 (12:35→20:43)
[2017-07-09] MEDS: METRONIDAZOLE / NSS 500 MG in PREMIXED NSS 100 ML IV SCH ×2 (12:35→19:45)
[2017-07-09] MEDS: RASPBERRY SYRUP 5 ML UDP PO SCH ×2 (12:36→17:41)
[2017-07-09] MEDS: THIAMINE HCL INJ 100 MG in SYRINGE 9 ML IV SCH (12:36)
[2017-07-09] MEDS: FoLIC ACID INJ 1 MG in SYRINGE 9.8 ML IV SCH (12:36)
[2017-07-09] MEDS: ALBUMIN HUMAN 5% 12.5 GM/250 ML VIAL IV SCH ×2 (12:38→17:43)
--- NOTE | 2017-07-09 12:39 | Progress Note ---
Subjective Date of Service: Jul 09, 2017. Problem List Medical Problems: (1) Abdominal pain Status: Acute (2) Acute pancreatitis Status: Acute (3) Alcohol abuse Status: Acute (4) Alcohol intoxication Status: Acute (5) Anemia Status: Acute (6) Anemia Status: Acute (7) Biliary obstruction Status: Acute (8) C. difficile colitis Status: Acute (9) C. difficile diarrhea Status: Acute (10) Chest pain Status: Acute (11) Contusion of multiple sites Status: Acute (12) Dehydration Status: Acute (13) Dehydration Status: Acute (14) Encounter for smoking cessation counseling Status: Acute (15) Epigastric abdominal pain Status: Acute (16) Fall Status: Acute (17) Fall due to slipping on ice or snow Status: Acute (18) Fracture of left distal radius Status: Acute (19) Hypocalcemia Status: Acute (20) Hypomagnesemia Status: Acute (21) Hypomagnesemia Status: Acute (22) Hypotension Status: Acute (23) Lactic acidosis Status: Acute (24) Liver failure Status: Acute (25) Pancreatitis Status: Acute Review of Systems Due to patient mental status review of system was unobtainable/unreliable We'll attempt to obtain review of system as needed from staff and record Objective Vital Signs Date Time Temp Pulse Resp B/P (MAP) Pulse Ox O2 Delivery O2 Flow Rate FiO2 07/09/17 11:29 40 07/09/17 10:00 100 32 120/70 (87) 97 CPAP 40 Mechanical Ventilator 07/09/17 09:14 40 07/09/17 08:00 37.9 17 111/68 (82) 96 CPAP 40 Mechanical Ventilator 07/09/17 08:00 CPAP 40 Mechanical Ventilator 07/09/17 08:00 40 07/09/17 06:00 94 12 109/59 (76) 96 CPAP 40 Mechanical Ventilator 07/09/17 06:00 94 12 109/59 (77) 96 07/09/17 05:41 40 07/09/17 05:00 106 16 96/69 (80) 97 07/09/17 05:00 106 16 96/69 (78) 97 CPAP 40 Mechanical Ventilator 07/09/17 04:00 37.1 107 20 95 CPAP 40 Mechanical Ventilator 07/09/17 04:00 CPAP 40 Mechanical Ventilator 07/09/17 04:00 107 20 95 07/09/17 03:15 40 07/09/17 03:00 107 16 105/60 (75) 96 CPAP 40 Mechanical Ventilator 07/09/17 03:00 107 16 105/60 (80) 96 07/09/17 02:00 108 17 100/68 (80) 96 07/09/17 02:00 108 17 100/68 (79) 96 CPAP 40 Mechanical Ventilator 07/09/17 01:00 106 16 99/64 (77) 96 07/09/17 01:00 106 16 99/64 (76) 96 CPAP 40 Mechanical Ventilator 07/09/17 00:00 36.5 108 16 102/64 (77) 96 CPAP 40 Mechanical Ventilator 07/08/17 23:59 CPAP 40 Mechanical Ventilator 07/08/17 23:02 40 07/08/17 23:00 106 14 95/62 (73) 96 CPAP 40 Mechanical Ventilator 07/08/17 23:00 106 14 95/62 (72) 96 07/08/17 22:00 109 13 104/62 (78) 96 07/08/17 22:00 36.5 109 13 104/62 (76) 96 CPAP 40 Mechanical Ventilator 07/08/17 21:00 107 15 104/65 (78) 96 CPAP 40 Mechanical Ventilator 07/08/17 21:00 107 15 104/65 (74) 96 07/08/17 20:00 CPAP 40 Mechanical Ventilator 07/08/17 20:00 37.7 111 17 104/65 (78) 96 CPAP 40 Mechanical Ventilator 07/08/17 20:00 111 17 104/65 (76) 96 07/08/17 19:02 40 07/08/17 19:00 111 17 103/62 (76) 96 CPAP 40 Mechanical Ventilator 07/08/17 19:00 111 17 103/62 (75) 96 07/08/17 18:00 115 17 107/62 (77) 96 CPAP 40 Mechanical Ventilator 07/08/17 18:00 115 17 107/62 (75) 96 07/08/17 17:00 116 18 111/62 (89) 96 07/08/17 16:00 37.4 115 19 109/65 (80) 96 CPAP 40 Mechanical Ventilator 07/08/17 16:00 CPAP 40 Mechanical Ventilator 07/08/17 16:00 115 19 109/65 (82) 96 07/08/17 15:28 40 07/08/17 14:00 115 19 110/66 (81) 96 CPAP 40 Mechanical Ventilator 07/08/17 14:00 115 19 110/66 (83) 96 07/08/17 13:41 40 07/08/17 13:00 116 19 111/63 (82) 95 Physical Exam Comments: Physical examination General patient appears to be comfortable, not in acute distress on the ventilator, but has anasarca HEENT: Atraumatic , normocephalic /no jaundice /positive pallor /anicteric /no dry mucous membrane /normal external ear inspection Neck: Supple /no swelling /central trach Heart: S1/S2 normal/regular rate and rhythm/no gallop /no rub /no murmur Lungs: Decreased air entry and decreased intensity of auscultation bilaterally/ normal chest with expansion/scattered rhonchi/no rales/no wheezing Abdomen: Soft/nontender/no guarding/no rebound/no organomegaly/no pulsatile mass Musculoskeletal: Anasarca with all over her body swelling and edema/no tenderness/normal range of motion Neuro exam: She was able to follow commands Psychiatric evaluation: Cannot be evaluated Skin: No rash on exposed skin area/no erythema Extremity: Normal pulse/+3 pitting edema/no clubbing or cyanosis Endocrine/lymphatic: No obvious lymphadenopathy /no lymphedema Laboratory Results Last 24 Hours Test 07/08/17 12:20 07/08/17 13:18 07/08/17 15:19 07/08/17 15:25 Bedside Glucose 150 mg/dl 160 mg/dl 171 mg/dl Test 07/08/17 17:16 07/08/17 19:29 07/08/17 23:49 07/09/17 03:23 Bedside Glucose 144 mg/dl 143 mg/dl 140 mg/dl 127 mg/dl Test 07/09/17 05:55 White Blood Count 40.82 K/uL Red Blood Count 2.28 M/uL Hemoglobin 8.0 g/dL Hematocrit 25.1 % Mean Corpuscular Volume 110.1 fL Mean Corpuscular Hemoglobin 35.1 pg Mean Corpuscular Hemoglobin Concent 31.9 g/dl Platelet Count 57 K/uL Neutrophils (%) (Auto) 89.5 % Lymphocytes (%) (Auto) 3.2 % Monocytes (%) (Auto) 1.7 % Eosinophils (%) (Auto) 0.1 % Basophils (%) (Auto) 0.4 % Neutrophils # (Auto) 36.53 K/uL Lymphocytes # (Auto) 1.30 K/uL Monocytes # (Auto) 0.69 K/uL Eosinophils # (Auto) 0.04 K/uL Basophils # (Auto) 0.17 K/uL RDW Standard Deviation 106.6 fL RDW Coefficient of Variation 28.1 % Immature Granulocyte % (Auto) 5.1 % Immature Granulocyte # (Auto) 2.09 K/uL Nucleated RBC Absolute Count (auto) 4.05 K/uL Nucleated Red Blood Cells % 9.9 % Platelet Estimate DECREASED Polychromasia 1+ Anisocytosis PRESENT Macrocytosis PRESENT Pappenheimer Bodies 1+ [place]uber[place] Bodies 1+ Prothrombin Time 14.1 SECONDS Prothromb Time International Ratio 1.4 Venous Blood pH 7.34 Venous Blood Partial Pressure CO2 39 mmHg Venous Blood Partial Pressure O2 41 mmHg Venous Blood HCO3 21 mmol/L Venous Blood Oxygen Saturation 71.6 % Venous Blood Base Excess -4.9 mEq/L Sodium Level 143 mmol/L Potassium Level 4.4 mmol/L Chloride Level 111 mmol/L Carbon Dioxide Level 21 mmol/L Anion Gap 11.0 mmol/L Blood Urea Nitrogen 55 mg/dl Creatinine 1.17 mg/dl Est Creatinine Clear Calc Drug Dose 71.3 ml/min Estimated GFR () 62.0 Estimated GFR (Non- 53.5 BUN/Creatinine Ratio 46.6 Random Glucose 110 mg/dl Calcium Level 7.9 mg/dl Phosphorus Level 2.0 mg/dl Magnesium Level 1.7 mg/dl Total Bilirubin 6.1 mg/dl Aspartate Amino Transf (AST/SGOT) 80 U/L Alanine Aminotransferase (ALT/SGPT) 23 U/L Alkaline Phosphatase 264 U/L Total Protein 4.8 gm/dl Albumin 1.5 gm/dl Globulin 3.3 gm/dl Albumin/Globulin Ratio 0.5 Lipase 281 U/L Assessment and Plan 52 years old female with liver cirrhosis, presented to the hospital with acute kidney injury, bloody diarrhea, hypertension and C. difficile colitis. Patient had acute respiratory failure secondary to above and was intubated. Currently has anasarca in ICU. Assessment Septic shock secondary to below Severe C. difficile colitis Acute hypoxic respiratory failure/ARDS Alcoholic liver hepatitis with liver failure / MELD score is 20 Acute kidney injury secondary to decreased perfusion, septic shock Electrolyte imbalance Chronic blood loss anemia, as per family chronic GI bleed thrombocytopenia likely secondary to liver disease Plan Continue vent management as per critical care team Severe leukocytosis is suspicious for fungemia Also C. difficile can cause severe stimulation for bone marrow, the only catch is that she is clinically improving from her C. difficile perspective, abdomen soft, diarrhea has decreased, will confirm that by ordering lactic acid and KUB to rule out toxic megacolon which does not fit the current clinical exam, having said that about the improvement of the C. difficile the severe leukocytosis prompted starting her on empiric antifungal, and follow-up fungal blood culture. Also continue Flagyl iv and vancomycin po Dr. Wu agreed with above plan and recommended hold on addition of fidaxomicin , and agreed with holding off antibiotics Patient followed commands today We will need alcohol withdrawal precaution Titrating benzo slowly continue GI prophylaxis hold off pharmacologic DVT prophylaxis Continued [facility] stay due to: multiple IV medications needed Discharge planning: uncertain
--- NOTE | 2017-07-09 12:40 | DIAGNOSTIC IMAGING REPORT ---
CHEST ONE VIEW PORTABLE CLINICAL HISTORY: 52 years-old Female presenting with cvl right Ij. TECHNIQUE: Portable upright AP view of the chest was obtained. COMPARISON: 07/09/2017 at 6:47 AM. FINDINGS: Interval placement of a right internal jugular central venous catheter, which terminates in the region of the superior cavoatrial junction. The right upper extremity PICC remains at the superior cavoatrial junction. The endotracheal tube has been slightly withdrawn now 3.3 cm from the [place]. Nasogastric tube descends below the diaphragm, terminus not visualized. Atherosclerosis of aortic arch. Cardiac silhouette top normal in size, slightly decreased from prior. Slight interval decrease in pulmonary vascular prominence. Minimal persistent hazy mid to basilar opacities. No large pleural effusion though trace pleural effusion a be present on the right. No large pneumothorax. Osseous structures normal. Upper abdomen normal. IMPRESSION: 1. Interval placement of a right IJ central venous catheter, which is appropriately positioned. No pneumothorax. 2. Remaining lines and tubes appropriately positioned. 3. Slight interval decrease in volume overload. The presence of mild pulmonary edema may still exist versus patchy atelectasis or infiltrate. Electronically signed by: Brice Noble M.D. 07/09/2017 12:38 PM Dictated Date/Time: 07/09/2017 12:36 PM
[2017-07-09] MEDS ORDERED: DEXTROSE 50% 50 ML SYR ONE (13:04)
[2017-07-09] MEDS ORDERED: TPN/PPN CONSULT PHARMACY PRN (13:45)
--- NOTE | 2017-07-09 13:46 | Critical Care Progress Note ---
Critical Care Progress Note Date of Service Jul 09, 2017. ICU Day ICU Day Number: [address] Gonzalez Subjective Unable to obtain due to pt mental status or condition. Lengthy discussion with nursing: Pt having diarrhea now. ON remained on CPAP. Mental status improved this morning after Narcan/flumazenil. No acute events ON. Objective General: resting in bed, responding to verbal stimuli MR TEACHER: RASS score of -1 (arouses to vocal stimuli), pt also tracking, moving extremities and head HEENT: Scleral icterus, ET tube and OG tube Lungs: coarse breath sounds, scattered rhonchi, occasional wheezing CVS: RRR, normal S1, S2, no murmurs Skin: jaundiced Abdomen: +BS (hypoactive); less distended, no reaction to palpation, severe hepatomegaly (abdominal exam stable) Extremities: 4+ pedal edema and 4+ UE edema; (serous oozing of UEs and lower abdomen with friable and erythematous skin) Assessment & Plan 52y/oF admitted with severe sepsis secondary to likely C.diff vs. ischemic colitis. Now with acute lung injury on mechanical ventilation (CPAP RR: PSV: 8, Peep 5, FiO2 40%). Persistent liver failure in the setting of alcoholic cirrhosis. Acidosis improved. Off pressors and sedation since 07/05. Mental status improved this AM s/p narcan and flumazenil administration. 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 CT head no acute IC pathology and no epileptiform activity on EEG. Also moderate-severe encephalopathy likely in the setting of infection vs. cirrhosis. Ammonia normal at 10. LFTs continues to be elevated. PLAN: MR TEACHER: This AM RASS score -1. Responds to verbal stimul. Tracking with eyes and moving upper and lower extremities. Mental status improved this AM s/p Narcan 0.4mg and flumazenil 0.4mg administration. Mental status changes likely consistent with moderate-severe encephalopathy in the setting of infection vs. cirrhosis. 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 CT 07/06 showed no acute IC pathology and no epileptiform activity on EEG. Neurology consulted - subclinical seizure unlikely, mental status changes likely from metabolic encephalopathy vs. alcohol induced cerebral edema Off fentanyl since 07/05 Off Versed since 0500 07/04 Dced BIS monitor and Nimbex at 1200 on 07/03 CVS: BP normalized. 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 No intervention at this time. SMA/LISBET patent. Hypervolemic +36L PULM: Acute lung injury On CPAP: On PSV 10, Peep 8, FiO2 40% VBG this AM: PH 7.34 PCO2 39, O2 41; HCO3 21, O2 sat 72% CXR 07/09: no pneumothorax, cardiomegaly with volume overload, mild pulm edema, small layering pleural effusion Pulm Toilet: alubterol 4 puffs Q4H; Atrovent 4 puffs Q4H Dced Methylpred 40mg Q12H (given WBC elevation to ensure not masking worsening infection) RENAL/METABOLIC: renal function at baseline Cr ~ 1; Cr today 1.2 with elevated BUN of 51. Stable urine output Volume overloaded by +36L Started on Lasix drip 10mg/hr with Albumin 5% 12.5g IV Q6H with goal of diuresis ID: Sepsis 05/25 C. diff vs ischemic colitis and PNA Abdominal CT 07/06: small pleural effusion and dense bibasilar consolidation; diffuse ground glass; diffuse anasarca body wall increased from 06/29; small volume of amniopelvic ascites increased from 06/29; hepatomegaly with severe hepatic steatosis; mild peripancreatic stranding/fluid. CXR 07/09: no pneumothorax, cardiomegaly with volume overload, mild pulm edema, small layering pleural effusion procal 1.67 on 07/06 Blood culture from 07/01 no growth Fungal gram stain and culture - no yeast or fungus Repeat sputum gram stain and culture - marisol albicans C.diff Abx regimen: Increased Vanc PO from 250 to 500mg day 10; Restarted Flagyl 500mg Q8H IV day 8 (total after 1 day pause) Started on Caspofungin 50mg Q4H IV for concern of fungemia Dced Aztreonam, Linezolid, and Levofloxacin after 3 days Received Vanc MN x 4 days Received Cefepime x 5 days Received IV vanc x 3 days ENDO: On Insulin gtt; blood sugars in 120s-170s range HEME: Anemia worsening this AM H/H 8/25.1 from 8.4/25.[address] mildly improved from 53 to 57 Dced heparin for concern of HIT 2 No evidence of bleeding Heparin PF4 Ab - neg Monitor CBC Consider transfusing once Hgb < 7 Electrolytes: Low Ca 7.8 (corrected 9.2 given albumin of 1.7), Mag 1.7 and Phos 2) Ordered Potassium Phosphate 21mmol Ordered Magnesium sulfate 2g Nutrition: Started on TPN given significant bowel edema inhibiting absorption of nutrition orally Thiamine increased from 100 to 500mg Folic Acid GI: Started on TPN Persistent liver failure; total bilirubin stable at 6.1; AST increased t0 80 from 70 and Alk phos 264 from 285 MELD score 20 (19.6% mortality risk); Child-Burns score of 11 (class C) Continue recurrent C.diff Colitis treatment: Vanc PO day 10; Flagyl IV day 8 Consulted surgery: high mortality risk for total colectomy at this time GI prophylaxis: Protonix 40mg IV BID IV access: Placed R IJ central venous cath 07/09 Placed R arm PICC line 07/05 Removed L femoral tri-lumen central venous cath and kyle 07/05 DVT Prophylaxis: SCDs PROGNOSIS: poor given high mortality in the setting of severe sepsis and multi- organ failure and poor baseline healthy Palliative care consulted Family Meeting: maintain current care plan, do not escalate care, would like to avoid surgery at this point; will reassess if condition worsens CCT: 45 minutes independent of procedures Thank you for including us in the care of this patient. Please refer to Dr. Gonzalez's addendum for further recommendations. Attending addendum, The patient was seen and examined independently, chart reviewed the details on rounds, I discussed with the stable rales, agree with assessment and plan of my colleague Dr. Horton. In summary this is a 52-year-old female with history of liver cirrhosis, alcoholism, presented to the hospital with sepsis and developed C. difficile colitis as well. The patient was treated aggressively in that regard. The patient did require fluid resuscitation throughout her hospitalization for the past 12 days. Her volume of distribution has been increased by approximately 30 kg of fluid. The patient was noted today to slightly opening her eyes after administering a dose of flumazenil and a dose of Narcan. The patient was able also to squeeze my hand with her right hand. The patient did require placement of a central line due to anasarca and inability to find an IV axis. She does have a PICC line but it was inadequate. Due to the patient's elevated leukocytosis with WBC of 40,000 it was felt that the patient C. difficile colitis is still active. In that regard the patient regimen for C. difficile colitis was escalated to vancomycin 500 mg via the OG tube every 6 hours and Flagyl was placed again a 500 mg every 8 hours. According to pharmacy, which I appreciate their input, the patient completed 8 days of Flagyl. The patient was seen by surgery and deemed not a surgical candidate for colectomy over laparotomy. This is mainly due to anasarca and liver cirrhosis. The patient had a central line placed for CVP monitoring as well as multiple infusions including a dedicated line for TPN. Tube feeding was held and TPN was started. Due to anasarca, the patient started also on Lasix drip as well as albumin in an effort to reduce her third spacing. Staff discussed the case with the family and answered all their questions. I would do the same was the family at the bedside. Noted recurrence of GI bleed, her ARDS has been improving, I will stop the steroids at this point which they are masking leukocytosis. Discussed with the staff and details. Critical care time spent with the patient was 60 minutes. Consults & Procedures Consultants: GI: Dr Joseph Vascular: Dr Baron General Surgery: Dr. Choe IV team for PICC line Procedures: 07/01/17: left femoral TLC 07/01/17: left femoral a-line 07/01/17: intubation Data Medications: Current Inpatient Medications Medications (Trade) Dose Ordered Sig/Razia Route Start Time Stop Time Status Last Admin Dose Admin Pantoprazole Sodium 40 mg/ Syringe 10 ml @ 5 mls/min BID IV 06/27/17 09:00 07/27/17 08:59 07/09/17 09:53 5 MLS/MIN Thiamine HCl 100 mg/Syringe 10 ml @ 2 mls/min Q24H IV 06/28/17 11:00 07/28/17 10:59 07/09/17 12:36 2 MLS/MIN Folic Acid 1 mg/ Syringe 10 ml @ 5 mls/min Q24H IV 06/28/17 11:00 07/28/17 10:59 07/09/17 12:36 5 MLS/MIN Lorazepam (Ativan Inj) 1 mg ONE PRN IV 06/27/17 09:15 Ondansetron HCl (Zofran Inj) 4 mg Q6H PRN IV 06/27/17 17:46 07/27/17 17:45 Hydromorphone HCl (Dilaudid Inj) 1 mg Q3HWA PRN IV 06/29/17 09:15 07/13/17 09:14 06/30/17 20:36 1 MG Albuterol/ Ipratropium (Duoneb) 3 ml Q4 PRN INH 07/01/17 05:30 07/31/17 05:29 Future Hold 07/01/17 10:06 3 ML Albuterol (Ventolin Hfa Inhaler) 4 puffs Q4R INH 07/02/17 08:00 08/01/17 07:59 07/09/17 11:29 4 PUFFS Ipratropium [place] (Atrovent Hfa Inhaler) 4 puffs Q4R INH 07/02/17 08:00 08/01/17 07:59 07/09/17 11:29 4 PUFFS Artificial Tears (Lacri-Lube Oph Oint) 1 appln Q2H PRN OPB 07/02/17 21:45 08/01/17 21:44 Enteral Nutritional Formula (Peptamen 1.5) 1,000 ml UD PRN OG 07/04/17 11:00 08/03/17 10:59 07/09/17 04:52 1,000 ML Heparin Sodium (Porcine) (Heparin 10 Unit/ ml 5 ml Flush) 5 ml PRN PRN FLUSH 07/04/17 20:45 08/03/17 20:44 Insulin Human Regular 250 units/ Sodium Chloride 252.5 ml @ 0 mls/hr Q24H IV 07/08/17 09:00 08/07/17 08:59 07/09/17 09:53 3.9 MLS/HR Vancomycin HCl (Vancomycin Oral Soln) 500 mg Q6H PO 07/09/17 12:00 07/10/17 11:59 07/09/17 12:36 500 MG Raspberry (Raspberry Syrup 5ml Cup) 5 ml Q6H PO 07/09/17 12:00 07/23/17 11:59 07/09/17 12:36 5 ML Caspofungin 50 mg/ Sodium Chloride 260 ml @ 250 mls/hr Q24H IV 07/09/17 11:00 08/08/17 10:59 07/09/17 12:34 250 MLS/HR Albumin Human (Albumin 5%) 12.5 gm Q6 IV 07/09/17 12:00 07/12/17 11:59 07/09/17 12:38 12.5 GM Metronidazole 500 mg/Prmx 100 ml @ 100 mls/hr Q8H IV 07/09/17 12:00 07/23/17 11:59 07/09/17 12:35 100 MLS/HR Furosemide 100 mg/ Dextrose 100 ml @ 10 mls/hr Q10H IV 07/09/17 11:15 08/08/17 11:14 07/09/17 12:35 10 MLS/HR Miscellaneous Information (Pharmacy Tpn/ Ppn Consult Active) 1 ea UD PRN N/A 07/09/17 13:45 08/08/17 13:44 I & O: 24hr Is/Os: 2213cc/775cc UOP 775cc rate = 0.31cc/kg/hr 1 large BM. Net balance + 36L Vital Signs: Date Time Temp Pulse Resp B/P (MAP) Pulse Ox O2 Delivery O2 Flow Rate FiO2 07/09/17 12:00 37.1 97 23 131/85 (100) 92 CPAP 40 Mechanical Ventilator 07/09/17 12:00 40 07/09/17 12:00 CPAP 40 Mechanical Ventilator 07/09/17 11:29 40 07/09/17 10:00 100 32 120/70 (87) 97 CPAP 40 Mechanical Ventilator 07/09/17 09:14 40 07/09/17 08:00 37.9 17 111/68 (82) 96 CPAP 40 Mechanical Ventilator 07/09/17 08:00 CPAP 40 Mechanical Ventilator 07/09/17 08:00 40 07/09/17 06:00 94 12 109/59 (76) 96 CPAP 40 Mechanical Ventilator 07/09/17 06:00 94 12 109/59 (77) 96 07/09/17 05:41 40 07/09/17 05:00 106 16 96/69 (80) 97 07/09/17 05:00 106 16 96/69 (78) 97 CPAP 40 Mechanical Ventilator 07/09/17 04:00 37.1 107 20 95 CPAP 40 Mechanical Ventilator 07/09/17 04:00 CPAP 40 Mechanical Ventilator 07/09/17 04:00 107 20 95 07/09/17 03:15 40 07/09/17 03:00 107 16 105/60 (75) 96 CPAP 40 Mechanical Ventilator 07/09/17 03:00 107 16 105/60 (80) 96 07/09/17 02:00 108 17 100/68 (80) 96 07/09/17 02:00 108 17 100/68 (79) 96 CPAP 40 Mechanical Ventilator 07/09/17 01:00 106 16 99/64 (77) 96 07/09/17 01:00 106 16 99/64 (76) 96 CPAP 40 Mechanical Ventilator 07/09/17 00:00 36.5 108 16 102/64 (77) 96 CPAP 40 Mechanical Ventilator 07/08/17 23:59 CPAP 40 Mechanical Ventilator 07/08/17 23:02 40 07/08/17 23:00 106 14 95/62 (73) 96 CPAP 40 Mechanical Ventilator 07/08/17 23:00 106 14 95/62 (72) 96 07/08/17 22:00 109 13 104/62 (78) 96 07/08/17 22:00 36.5 109 13 104/62 (76) 96 CPAP 40 Mechanical Ventilator 07/08/17 21:00 107 15 104/65 (78) 96 CPAP 40 Mechanical Ventilator 07/08/17 21:00 107 15 104/65 (74) 96 07/08/17 20:00 CPAP 40 Mechanical Ventilator 07/08/17 20:00 37.7 111 17 104/65 (78) 96 CPAP 40 Mechanical Ventilator 07/08/17 20:00 111 17 104/65 (76) 96 07/08/17 19:02 40 07/08/17 19:00 111 17 103/62 (76) 96 CPAP 40 Mechanical Ventilator 07/08/17 19:00 111 17 103/62 (75) 96 07/08/17 18:00 115 17 107/62 (77) 96 CPAP 40 Mechanical Ventilator 07/08/17 18:00 115 17 107/62 (75) 96 07/08/17 17:00 116 18 111/62 (89) 96 07/08/17 16:00 37.4 115 19 109/65 (80) 96 CPAP 40 Mechanical Ventilator 07/08/17 16:00 CPAP 40 Mechanical Ventilator 07/08/17 16:00 115 19 109/65 (82) 96 07/08/17 15:28 40 07/08/17 14:00 115 19 110/66 (81) 96 CPAP 40 Mechanical Ventilator 07/08/17 14:00 115 19 110/66 (83) 96 Laboratory Results: Last 24 Hours Test 07/08/17 15:19 07/08/17 15:25 07/08/17 17:16 07/08/17 19:29 Bedside Glucose 171 mg/dl 144 mg/dl 143 mg/dl Test 07/08/17 23:49 07/09/17 03:23 07/09/17 05:55 07/09/17 12:55 Bedside Glucose 140 mg/dl 127 mg/dl White Blood Count 40.82 K/uL Red Blood Count 2.28 M/uL Hemoglobin 8.0 g/dL Hematocrit 25.1 % Mean Corpuscular Volume 110.1 fL Mean Corpuscular Hemoglobin 35.1 pg Mean Corpuscular Hemoglobin Concent 31.9 g/dl Platelet Count 57 K/uL Neutrophils (%) (Auto) 89.5 % Lymphocytes (%) (Auto) 3.2 % Monocytes (%) (Auto) 1.7 % Eosinophils (%) (Auto) 0.1 % Basophils (%) (Auto) 0.4 % Neutrophils # (Auto) 36.53 K/uL Lymphocytes # (Auto) 1.30 K/uL Monocytes # (Auto) 0.69 K/uL Eosinophils # (Auto) 0.04 K/uL Basophils # (Auto) 0.17 K/uL RDW Standard Deviation 106.6 fL RDW Coefficient of Variation 28.1 % Immature Granulocyte % (Auto) 5.1 % Immature Granulocyte # (Auto) 2.09 K/uL Nucleated RBC Absolute Count (auto) 4.05 K/uL Nucleated Red Blood Cells % 9.9 % Platelet Estimate DECREASED Polychromasia 1+ Anisocytosis PRESENT Macrocytosis PRESENT Pappenheimer Bodies 1+ Gruber-Munising Bodies 1+ Prothrombin Time 14.1 SECONDS Prothromb Time International Ratio 1.4 Venous Blood pH 7.34 Venous Blood Partial Pressure CO2 39 mmHg Venous Blood Partial Pressure O2 41 mmHg Venous Blood HCO3 21 mmol/L Venous Blood Oxygen Saturation 71.6 % Venous Blood Base Excess -4.9 mEq/L Sodium Level 143 mmol/L Potassium Level 4.4 mmol/L Chloride Level 111 mmol/L Carbon Dioxide Level 21 mmol/L Anion Gap 11.0 mmol/L Blood Urea Nitrogen 55 mg/dl Creatinine 1.17 mg/dl Est Creatinine Clear Calc Drug Dose 71.3 ml/min Estimated GFR () 62.0 Estimated GFR (Non- 53.5 BUN/Creatinine Ratio 46.6 Random Glucose 110 mg/dl Calcium Level 7.9 mg/dl Phosphorus Level 2.0 mg/dl Magnesium Level 1.7 mg/dl Total Bilirubin 6.1 mg/dl Aspartate Amino Transf (AST/SGOT) 80 U/L Alanine Aminotransferase (ALT/SGPT) 23 U/L Alkaline Phosphatase 264 U/L Total Protein 4.8 gm/dl Albumin 1.5 gm/dl Globulin 3.3 gm/dl Albumin/Globulin Ratio 0.5 Lipase 281 U/L Lactic Acid Level 1.1 mmol/L
[2017-07-09] MEDS ORDERED: DEXTROSE 10% 1,000 ML IV PRN (13:47)
--- NOTE | 2017-07-09 14:18 | Procedure Note ---
Procedure Note Procedure Date Jul 09, 2017. Procedure Description Procedure Name: Central line placement Procedure time out: side/site verified, patient ID confirmed, correct procedure Consent obtained: written Performed by: attending, resident Indications: diagnostic, therapeutic Contraindications: none Description: Central line placed for CVP measurement and multiple drips. Consent obtained from the daughter over the phone. Confirmed with the nursing staff. Risks and benefits explained details agreed to the procedure. The patient was placed in supine position, the procedure done by Dr. Clifford I was present throughout the entire procedure. The patient had the procedure done under ultrasound guidance , strict sterile field, the skin was prepped with chlorhexidine and injected with 5 mL 1% lidocaine, anterior approach of IJ, dilator was used, no scalpel, the line was placed to 15 cm, all ports flushed with normal saline, secured with 2 sutures, covered with surgical dressing, chest x-ray was reviewed tip of the catheter at the SVC, no pneumothorax. No immediate complication. Tolerated well. Complications: none
[2017-07-09] MEDS ORDERED: GLUCOSE 10 TABS/TUBE PO PRN (14:45)
[2017-07-09] MEDS ORDERED: GLUCAGON FOR INJ 1 MG VIAL SQ PRN (14:45)
[2017-07-09] MEDS ORDERED: DEXTROSE 50% 50 ML SYR IV PRN (14:45)
[2017-07-09] MEDS ORDERED: GLUCOSE 40% GEL 15 GM TUBE PO PRN (14:45)
--- NOTE | 2017-07-09 14:53 | Pharmacy Progress Note ---
Parenteral Nutrition Consult Date of Service Jul 09, 2017. Scope Pharmacy has been consulted to manage parenteral nutrition orders and order appropriate labs. As part of the Nutrition Support Team guidelines, pharmacy will work in conjunction with dietary when determining the patients caloric needs. Subjective The patient is a 52 year old female admitted on Jun 27, 2017 at 08:57 for Gi Bleed,Shock Circulatory. Patient is to receive parenteral nutrition for malnutrition/malabsorption. Pertinent PMH: Objective Height (Feet): 5 Height (Inches): 8.00 Weight (Kilograms): 104.900 Diet: Fluid Restriction Vascular Access: RIJ/ PICC Intake & Output (Last 72 Hr): 07/08/17 07/09/17 07/10/17 08:00 08:00 08:00 Intake Total 1579 ml 2205 ml Output Total 725 ml 725 ml Balance 854 ml 1480 ml Laboratory Data (Last 24 Hr): Test 07/09/17 05:55 Alanine Aminotransferase (ALT/SGPT) 23 U/L (12-78) Albumin 1.5 gm/dl (3.4-5.0) Alkaline Phosphatase 264 U/L (45-117) Aspartate Amino Transf (AST/SGOT) 80 U/L (15-37) Blood Urea Nitrogen 55 mg/dl (7-18) Calcium Level 7.9 mg/dl (8.5-10.1) Carbon Dioxide Level 21 mmol/L (21-32) Chloride Level 111 mmol/L (98-107) Creatinine 1.17 mg/dl (0.60-1.20) Magnesium Level 1.7 mg/dl (1.8-2.4) Phosphorus Level 2.0 mg/dl (2.5-4.9) Potassium Level 4.4 mmol/L (3.5-5.1) Prealbumin 10.0 mg/dl (20-40) Random Glucose 110 mg/dl (70-99) Sodium Level 143 mmol/L (136-145) Total Bilirubin 6.1 mg/dl (0.2-1) Nutrition Assessment Please refer to the Notes section of the EMR for the most recent owner consulting engineer note. Assessment Patient attempted enteral feeding with little success given abdominal issues secondary to sever C. diff. The patient is also volume overloaded, with tenuous diuresis so a concentrated formula will be employed. Finally, we will start with a lower dose of dextrose to mitigate risk of re-feeding. Of note, liver enzymes are elevated and will be monitored during PN. Plan For day 1 of PN administration, the following will be ordered: Macronutrients Amino acids 100 grams/day (goal 100g/day) Dextrose 100 grams/day (goal 225 g/day) Lipids 0 grams/day (goal 50g twice weekly) Micronutrients Combined electrolytes 20 mL - contains 35 mEq Na, 20 meq K, 4.5 mEq Ca, 5 mEq Mg , 35 mEq Cl, 29.5 mEq acetate per 20 mL Sodium phosphate 12 MMol Sodium chloride 0 mEq Sodium acetate 0 mEq Potassium phosphate 0 mMol Potassium chloride 0 mEq Potassium acetate 0 mEq Magnesium sulfate 0 mEq Calcium gluconate 0 mEq Multivitamins 10 mL Trace Elements 10 mL Additional additives: Total volume 1177 mL to be infused over 24 hrs will provide ~750 kcal/day ( foal 1750 kcal/day) Labs to be ordered per PN order protocol Pharmacy will follow and adjust parenteral nutrition orders on a daily basis. Thank you.
[2017-07-09] MEDS: CUSTOM CENTRAL PN 1 BAG IV SCH (16:39)
--- NOTE | 2017-07-09 16:52 | GASTROENTEROLOGY PROGRESS NOTE ---
DATE: 07/09/2017 GASTROENTEROLOGY INPATIENT PROGRESS NOTE SUBJECTIVE: Chart reviewed, patient examined, events of weekend noted. The patient continued to have an increasing leukocytosis without clear origin. The patient, however, is blinks her eyes and seems to turn her head towards me. She is intubated on a 40% FIO2, 5 of PEEP. IMAGING DATA: The patient's chest x-ray today shows interval placement of right IJ catheter, slight interval decrease in volume overload. The patient had her brain MRI on yesterday evening and this revealed possible demyelinating process, metabolic disease, neoplastic etiology such as a glioma or infectious of colopathy. There is a moderate left mastoid effusion with mild paranasal sinus disease. There may be some microvascular changes. LABORATORY STUDIES: Today - white count 40.8,000, hemoglobin 8, and platelets 57,000. BUN and creatinine this morning is 55 and 1.17, potassium 4.4. LFTs - alkaline phosphatase 264, ALT 23, AST 80, total bilirubin is 6.1, magnesium and phosphorus are low at 1.7 and 2, respectively. MEDICATIONS: Include thiamin, D5, vancomycin p.o. q. 6, Flagyl 500 t.i.d., Lasix, caspofungin, insulin, Ipratropium, Protonix 40 mg twice daily, lorazepam, Zofran, and folic acid. PHYSICAL EXAMINATION: GENERAL: The patient appears more alert than she has been. Blinks her eyes and slightly moves her head towards me. She is nonverbal; however, and is intubated. HEART: Normal S1, S2. LUNGS: Clear to auscultation, although there are coarse breath sounds that may be related to intubation. I do not appreciate crackles, although there may be trace wheezes. HEART: Normal S1, S2. ABDOMEN: Soft, obese, nontender, nondistended, without evidence of tense ascites, shifting dullness. Positive bowel sounds are noted. EXTREMITIES: Show +3 pitting edema. IMPRESSION AND PLAN: The patient with history of Clostridium difficile colitis, on oral vancomycin, intravenous Flagyl. The source of the leukocytosis is unclear. There does not appear to be an obvious abscess or infection in the head and CT from Sunday was unrevealing from a specific inflammatory source, although there was question of a peripancreatic fluid collection. The patient despite this generally has been afebrile except for this morning when she was 37.9, repeat she is afebrile. Would continue a course of therapy for C. diff with oral vancomycin and IV Flagyl. Gram sputum for Mayra were identified on July 06 and antifungal agents have been started. We will follow with you. At the present time, there does not appear to be an active GI issue and it is unclear if a significant colitis is persisting. We will continue to follow with you. Dr. Joseph will be covering GI service over the next few days. BERT
[2017-07-09] MEDS ORDERED: POTASSIUM PHOS 3 MMOL/1 ML INFUSION IV STA (18:14)
[2017-07-09] MEDS: MAGNESIUM SULFATE 1GM / D5W 1 GM in PREMIXED IN D5W 100 ML IV SCH ×2 (18:46→19:45)
[2017-07-09] MEDS ORDERED: POTASSIUM PHOSPHATE INJ 21 MMOL in SODIUM CHLORIDE 0.9% 500ML 500 ML IV ONE (20:00)
[2017-07-10] VITALS (36 sets, daily range): BP systolic 87–117; BP diastolic 44–77; PULSE 78–98; TEMP 36.8–37.2; O2SAT 95–100
[2017-07-10] MEDS: ALBUTEROL HFA 8 GM INHALER INH SCH ×7 (00:22→23:30)
[2017-07-10] MEDS: IPRATROPIUM BROMIDE HFA INHALER INH SCH ×7 (00:22→23:30)
[2017-07-10] MEDS: VANCOMYCIN HCL 250 MG/5 ML SOLN PO SCH ×2 (01:30→06:05)
[2017-07-10] MEDS: RASPBERRY SYRUP 5 ML UDP PO SCH ×4 (01:30→18:00)
[2017-07-10] MEDS: ALBUMIN HUMAN 5% 12.5 GM/250 ML VIAL IV SCH ×2 (01:39→06:41)
[2017-07-10] MEDS: METRONIDAZOLE / NSS 500 MG in PREMIXED NSS 100 ML IV SCH ×3 (04:16→20:02)
[2017-07-10 06:42] LABS: INR 1.3 (0.9-1.1)
[2017-07-10 06:46] LABS: HEMATOCRIT 24.4 % (37-47); HEMOGLOBIN 7.6 g/dL (12.0-16.0); MEAN CELL VOLUME 111.9 fL (80-100); MEAN CORPUSCULAR HEMOGLOBIN 34.9 pg (25-34); MEAN CORPUSCULAR HGB CONC 31.1 g/dl (32-36); NUCLEATED RED BLOOD CELL ABS 2.11 K/uL (0-0); PLATELET COUNT 61 K/uL (130-400); RED CELL DISTRIBUTION WIDTH CV 28.3 % (11.5-14.5); RED CELL DISTRIBUTION WIDTH SD 112.8 fL (36.4-46.3)
[2017-07-10 06:52] LABS: BASO % 0.3 %; EOS % 0.5 %; EOS ABS # 0.17 K/uL (0-0.5); IG# 1.66 K/uL (0.00-0.02); LYMPH % 2.8 %; LYMPH ABS # 0.96 K/uL (1.2-3.4); MONO % 1.9 %; MONO ABS # 0.67 K/uL (0.11-0.59); NEUT % 89.7 %; NEUT ABS # 30.84 K/uL (1.4-6.5)
[2017-07-10 06:56] LABS: CALCIUM 7.9 mg/dl (8.5-10.1); CREATININE 1.14 mg/dl (0.60-1.20); POTASSIUM 4.2 mmol/L (3.5-5.1)
[2017-07-10 07:20] LABS: PHOSPHORUS 3.3 mg/dl (2.5-4.9); TOTAL PROTEIN 4.7 gm/dl (6.4-8.2)
[2017-07-10] MEDS: FUROSEMIDE INJ 100 MG in DEXTROSE 5% 100ML 90 ML IV SCH ×3 (07:35→20:02)
[2017-07-10] MEDS: PANTOprazole INJ 40 MG in SYRINGE 0 ML IV SCH ×2 (07:36→20:02)
--- NOTE | 2017-07-10 08:31 | Neurology Progress Notes ---
Neurology Progress Note Date of Service Jul 10, 2017. Subjective Patient is being described as being more reactive by the nursing staff. She has not had any seizure activity noted. Chemistry and liver lab values are slowly improving. Vital signs are stable Objective Date Time Temp Pulse Resp B/P (MAP) Pulse Ox O2 Delivery O2 Flow Rate FiO2 07/10/17 07:34 40 07/10/17 06:00 94 15 96 07/10/17 06:00 94 15 103/68 (80) 96 CPAP 40 Mechanical Ventilator 07/10/17 05:00 94 15 96 07/10/17 04:01 40 07/10/17 04:00 40 07/10/17 04:00 CPAP 40 Mechanical Ventilator 07/10/17 04:00 98 14 96 07/10/17 04:00 36.9 98 14 102/61 (75) 96 CPAP 40 Mechanical Ventilator 07/10/17 03:00 87 12 97 07/10/17 02:00 96 15 102/63 (76) 96 40 07/10/17 02:00 96 15 96 07/10/17 01:00 96 15 95 07/10/17 00:22 40 07/10/17 00:01 98 16 99/62 (74) 95 07/10/17 00:01 37.1 98 16 99/62 (74) 95 CPAP 40 Mechanical Ventilator 07/09/17 23:59 40 07/09/17 23:59 CPAP 40 Mechanical Ventilator 07/09/17 23:00 97 16 96 07/09/17 22:00 95 15 99/61 (74) 96 CPAP 40 Mechanical Ventilator 07/09/17 22:00 95 15 96 07/09/17 21:40 40 07/09/17 21:00 95 15 97 07/09/17 20:35 40 07/09/17 20:00 37.0 95 14 103/69 (80) 97 CPAP 40 Mechanical Ventilator 07/09/17 20:00 95 14 97 07/09/17 20:00 CPAP 40 Mechanical Ventilator 07/09/17 20:00 40 07/09/17 19:00 97 16 97 07/09/17 18:01 40 07/09/17 18:00 95 16 107/70 (82) 97 CPAP 40 Mechanical Ventilator 07/09/17 18:00 90 15 107/70 (85) 97 07/09/17 17:00 91 15 121/58 (73) 97 07/09/17 16:00 36.9 93 16 116/70 (85) 97 CPAP 40 Mechanical Ventilator 07/09/17 16:00 CPAP 40 Mechanical Ventilator 07/09/17 16:00 40 07/09/17 16:00 93 16 116/70 (93) 97 07/09/17 14:41 40 07/09/17 14:00 94 27 113/69 (84) 97 CPAP 40 Mechanical Ventilator 07/09/17 12:00 37.1 97 23 131/85 (100) 92 CPAP 40 Mechanical Ventilator 07/09/17 12:00 40 07/09/17 12:00 CPAP 40 Mechanical Ventilator 07/09/17 11:29 40 07/09/17 10:00 100 32 120/70 (87) 97 CPAP 40 Mechanical Ventilator 07/09/17 09:14 40 Last 24 Hours Test 07/09/17 08:27 07/09/17 12:12 07/09/17 12:55 07/09/17 13:00 Bedside Glucose 103 mg/dl 85 mg/dl 79 mg/dl Lactic Acid Level 1.1 mmol/L Test 07/09/17 13:18 07/09/17 14:03 07/09/17 14:22 07/09/17 14:48 Bedside Glucose 141 mg/dl 98 mg/dl 97 mg/dl 132 mg/dl Test 07/09/17 15:53 07/09/17 16:46 07/09/17 17:48 07/09/17 18:28 Bedside Glucose 106 mg/dl 105 mg/dl 119 mg/dl 124 mg/dl Test 07/09/17 20:45 07/09/17 22:51 07/10/17 00:53 07/10/17 02:35 Bedside Glucose 117 mg/dl 131 mg/dl 136 mg/dl 153 mg/dl Test 07/10/17 06:04 White Blood Count 34.40 K/uL Red Blood Count 2.18 M/uL Hemoglobin 7.6 g/dL Hematocrit 24.4 % Mean Corpuscular Volume 111.9 fL Mean Corpuscular Hemoglobin 34.9 pg Mean Corpuscular Hemoglobin Concent 31.1 g/dl Platelet Count 61 K/uL Neutrophils (%) (Auto) 89.7 % Lymphocytes (%) (Auto) 2.8 % Monocytes (%) (Auto) 1.9 % Eosinophils (%) (Auto) 0.5 % Basophils (%) (Auto) 0.3 % Neutrophils # (Auto) 30.84 K/uL Lymphocytes # (Auto) 0.96 K/uL Monocytes # (Auto) 0.67 K/uL Eosinophils # (Auto) 0.17 K/uL Basophils # (Auto) 0.10 K/uL RDW Standard Deviation 112.8 fL RDW Coefficient of Variation 28.3 % Immature Granulocyte % (Auto) 4.8 % Immature Granulocyte # (Auto) 1.66 K/uL Nucleated RBC Absolute Count (auto) 2.11 K/uL Nucleated Red Blood Cells % 6.1 % Toxic Granulation 1+ Toxic Vacuolation 1+ Platelet Estimate DECREASED Large Platelets 1+ Polychromasia 2+ Basophilic Stippling OCCASIONAL Anisocytosis PRESENT Macrocytosis PRESENT Pappenheimer Bodies 1+ Gruber-Bostwick Bodies OCCASIONAL Prothrombin Time 13.9 SECONDS Prothromb Time International Ratio 1.3 Sodium Level 144 mmol/L Potassium Level 4.2 mmol/L Chloride Level 113 mmol/L Carbon Dioxide Level 20 mmol/L Anion Gap 11.0 mmol/L Blood Urea Nitrogen 61 mg/dl Creatinine 1.14 mg/dl Est Creatinine Clear Calc Drug Dose 73.3 ml/min Estimated GFR () 64.0 Estimated GFR (Non- 55.2 BUN/Creatinine Ratio 53.3 Random Glucose 133 mg/dl Lactic Acid Level 0.9 mmol/L Calcium Level 7.9 mg/dl Phosphorus Level 3.3 mg/dl Magnesium Level 1.9 mg/dl Total Bilirubin 5.7 mg/dl Aspartate Amino Transf (AST/SGOT) 68 U/L Alanine Aminotransferase (ALT/SGPT) 26 U/L Alkaline Phosphatase 198 U/L C-Reactive Protein 2.50 mg/dl Total Protein 4.7 gm/dl Albumin 2.0 gm/dl Globulin 2.7 gm/dl Albumin/Globulin Ratio 0.7 Triglycerides Level mg/dl Exam: The patient his spontaneously opening her eyes and making eye contact. She is intubated still will follow one-step commands easily. This includes opening her eyes wider, wiggling her fingers and toes, and looking in a direction to the right and left. Pupils are 4 millimeters bilaterally reactive to light. Extraocular eye muscles are intact horizontally without nystagmus. There is no obvious facial droop but she is intubated Patient can move all 4 limbs although she has decreased tone in his were weak in general. Her strength is graded as 2/5 distally in the legs and 1/5 distally in the arms. Proximally still seem 0/5. She has considerable edema in all limbs. She feels pain in all 4 limbs quickly. Current Inpatient Medications Medications (Trade) Dose Ordered Sig/Razia Route Start Time Stop Time Status Last Admin Dose Admin Pantoprazole Sodium 40 mg/ Syringe 10 ml @ 5 mls/min BID IV 06/27/17 09:00 07/27/17 08:59 07/10/17 07:36 5 MLS/MIN Folic Acid 1 mg/ Syringe 10 ml @ 5 mls/min Q24H IV 06/28/17 11:00 07/28/17 10:59 07/09/17 12:36 5 MLS/MIN Lorazepam (Ativan Inj) 1 mg ONE PRN IV 06/27/17 09:15 Ondansetron HCl (Zofran Inj) 4 mg Q6H PRN IV 06/27/17 17:46 07/27/17 17:45 Hydromorphone HCl (Dilaudid Inj) 1 mg Q3HWA PRN IV 06/29/17 09:15 07/13/17 09:14 06/30/17 20:36 1 MG Albuterol/ Ipratropium (Duoneb) 3 ml Q4 PRN INH 07/01/17 05:30 07/31/17 05:29 Future Hold 07/01/17 10:06 3 ML Albuterol (Ventolin Hfa Inhaler) 4 puffs Q4R INH 07/02/17 08:00 08/01/17 07:59 07/10/17 07:27 4 PUFFS Ipratropium [place] (Atrovent Hfa Inhaler) 4 puffs Q4R INH 07/02/17 08:00 08/01/17 07:59 07/10/17 07:27 4 PUFFS Artificial Tears (Lacri-Lube Oph Oint) 1 appln Q2H PRN OPB 07/02/17 21:45 08/01/17 21:44 Enteral Nutritional Formula (Peptamen 1.5) 1,000 ml UD PRN OG 07/04/17 11:00 08/03/17 10:59 Future Hold 07/09/17 04:52 1,000 ML Heparin Sodium (Porcine) (Heparin 10 Unit/ ml 5 ml Flush) 5 ml PRN PRN FLUSH 07/04/17 20:45 08/03/17 20:44 Insulin Human Regular 250 units/ Sodium Chloride 252.5 ml @ 0 mls/hr Q24H IV 07/08/17 09:00 08/07/17 08:59 07/09/17 09:53 3.9 MLS/HR Vancomycin HCl (Vancomycin Oral Soln) 500 mg Q6H PO 07/09/17 12:00 07/10/17 11:59 07/10/17 06:05 500 MG Raspberry (Raspberry Syrup 5ml Cup) 5 ml Q6H PO 07/09/17 12:00 07/23/17 11:59 07/10/17 06:04 5 ML Caspofungin 50 mg/ Sodium Chloride 260 ml @ 250 mls/hr Q24H IV 07/09/17 11:00 08/08/17 10:59 07/09/17 12:34 250 MLS/HR Albumin Human (Albumin 5%) 12.5 gm Q6 IV 07/09/17 12:00 07/12/17 11:59 07/10/17 06:41 12.5 GM Metronidazole 500 mg/Prmx 100 ml @ 100 mls/hr Q8H IV 07/09/17 12:00 07/23/17 11:59 07/10/17 04:16 100 MLS/HR Furosemide 100 mg/ Dextrose 100 ml @ 10 mls/hr Q10H IV 07/09/17 11:15 08/08/17 11:14 07/10/17 07:35 10 MLS/HR Miscellaneous Information (Pharmacy Tpn/ Ppn Consult Active) 1 ea UD PRN N/A 07/09/17 13:45 08/08/17 13:44 Nutrition (Parenteral) 0 ml @ 0 mls/hr TODAY IV 07/09/17 14:00 07/10/17 13:59 07/09/17 16:39 49.08 MLS/HR Dextrose 1,000 ml @ 0 mls/hr Q0M PRN IV 07/09/17 13:47 08/08/17 13:46 Glucose (Glucose 40% Gel) 15-30 GRAMS 15 GRAMS... UD PRN PO 07/09/17 14:45 08/08/17 14:44 Glucose (Glucose Chew Tab) 4-8 Tablets 4 Tabl... UD PRN PO 07/09/17 14:45 08/08/17 14:44 Dextrose (Dextrose 50% 50ML Syringe) 25-50ML OF 50% DW IV FOR... UD PRN IV 07/09/17 14:45 08/08/17 14:44 07/09/17 14:20 25 ML Glucagon (Glucagon Inj) 1 mg UD PRN SQ 07/09/17 14:45 08/08/17 14:44 Thiamine HCl 500 mg/Sodium Chloride 105 ml @ 210 mls/hr Q24H IV 07/10/17 11:00 08/09/17 10:59 Impression 1. Acute, severe encephalopathy, slowly improved This is likely multifactorial from direct alcohol effect on the brain, hepatic encephalopathy with liver failure, and sepsis. Patient has had no obvious seizure activity and EEG was unremarkable for seizure activity last week. 2. Abnormal MRI of the brain with multiple symmetrical midline lesions MRI of the brain is consistent mostly with metabolic/chronic alcoholic origins. 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 There is a concern that the pontine lesion may represent central pontine myelinolysis or necrolysis. I believe this is less likely because of the MRI findings of no increase diffusion image and no changes on T1, which are typical of CPM or acute necrolysis. 3. This patient seems to have a peripheral neuropathy with decreased reaction in the feet and absent reflexes throughout. 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 Plan 1. Continue treating her metabolic and infectious/septic problems as you are doing 2. Consider adding B vitamins if not already done , as MBD is associated with multiple B vitamin deficiencies (such as B12, folate, and B1) Sometimes, steroids are used as a treatment to decrease cerebral edema with this disease as well. However, she has received steroids. Caution with seizure provoking medication, as patients with MBD are at increased risk for seizures. 3. Consider B12, folate, and methylmalonic acid levels prior to initiating B vitamins. I see no reason for additional neurologic testing or treatment recommendations at this time. There is no need for an LP at this time. Please contact me if I can be of further assistance on this case. I spent a total of 30 minutes with this patient including records for review, discussion of the MRI with Radiology, the discussion of the case with Dr. Gonzalez , and direct bedside evaluation
[2017-07-10] MEDS ORDERED: FENTANYL CITRATE INJ 50 MCG/1 ML 2 ML VIAL ONE (10:01)
[2017-07-10] MEDS ORDERED: MIDAZOLAM HCL 1 MG/ML 2ML VIAL ONE (10:02)
[2017-07-10] MEDS ORDERED: NURSING VERBAL MED ORDER ONE (10:45)
[2017-07-10] MEDS ORDERED: THIAMINE HCL INJ 500 MG in SODIUM CHLORIDE 0.9% 100ML IV SCH (11:00)
[2017-07-10] MEDS ORDERED: THIAMINE HCL IV SCH (11:00)
[2017-07-10] MEDS: CASPOFUNGIN INJ 50 MG in SODIUM CHLORIDE 0.9% 250ML 250 ML IV SCH (11:20)
[2017-07-10] MEDS: FoLIC ACID INJ 1 MG in SYRINGE 9.8 ML IV SCH (11:22)
[2017-07-10] MEDS: INSULIN REGULAR 250 UNITS in SODIUM CHLORIDE 0.9% 250ML 250 ML IV SCH (11:26)
--- NOTE | 2017-07-10 11:31 | Palliative Care Progress Note ---
Palliative Care Progress Note Date of Service Jul 10, 2017. Subjective Patient discussed in ICU rounds this morning. She is improving, acute/critical care continues. I will sign off for now but please don't hesitate to reconsult me for any further family meetings or if anything changes. Thank you.
--- NOTE | 2017-07-10 11:38 | Procedure Note ---
Procedure Note Procedure Date Jul 10, 2017. Procedure Description Procedure Name: Bronchoscopy. Procedure time out: side/site verified, patient ID confirmed, correct procedure Consent obtained: written Performed by: attending Indications: diagnostic, therapeutic Contraindications: none Description: Bronchoscopy was done due to thick secretions difficult to suction from the ET tube. Consent obtained from the daughter over the phone by my colleague Dr. Horton, agreed to the procedure. The procedure was done in room 8 in the ICU. The patient monitored throughout the entire procedure with ICU style. Conscious sedation provided by a nurse notified for moderate sedation. The patient received a total of 25 mics of fentanyl and 2 mg of Versed for the procedure. No lidocaine was needed. The findings as follows: 1. Thick secretions were noted occluding the takeoff of the right middle lobe as well as the lateral segment of the right lower lobe suctioned to clear. Thick secretions at the level of the tip of the ET tube. 2. No endobronchial lesions. 3. Appear to have extrinsic compression possibly from pleural effusion on the right side. 4. The ET tube was very close to the [place] and adjusted to 3 cm above the [place] using the bronchoscopy as guidewire. 5. Specimen was sent for cultures. 6. No lidocaine was used. 7. Tolerated the procedure very well. 8. The bronchoscope was removed and no immediate complication and no desaturation. 9. The patient was placed on AC mode for the procedure and kept on it until she is more awake to restart CPAP trial. Specimen was sent for cultures and Gram stain. Complications: none
--- NOTE | 2017-07-10 11:41 | Critical Care Progress Note ---
Critical Care Progress Note Date of Service Jul 10, 2017. ICU Day ICU Day Number: [address] Gonzalez Subjective Unable to obtain due to pt mental status or condition. Lengthy discussion with nursing. No acute events ON. Continues to show mental status improvement. Objective General: resting in bed, responding to verbal stimuli [employer]: RASS score of -1 (arouses to vocal stimuli), pt also tracking, following commands and moving extremities/head HEENT: Scleral icterus, ET tube and OG tube Lungs: coarse breath sounds, scattered rhonchi, and wheezing CVS: RRR, normal S1, S2, no murmurs Skin: jaundiced Abdomen: +BS (hypoactive); less distended, TTP diffusely especially in lower abdomen, severe hepatomegaly Extremities: 4+ pedal edema and 4+ UE edema; (serous oozing of UEs and lower abdomen with friable and erythematous skin) Assessment & Plan 52y/oF admitted with severe sepsis secondary to likely C.diff colitis. NOW with acute lung injury on mechanical ventilation (CPAP PSV: 5, Peep 5, FiO2 40%). Mental status continues to improve and consistent with moderate-severe encephalopathy likely in the setting of sepsis vs. hepatic encephalopathy vs chronic alcohol effects based on imaging. Last ammonia normal at 10. LFTs continues to be elevated. Persistent liver failure in the setting of alcoholic cirrhosis. Acidosis improved. Off pressors and sedation since 07/05. PLAN: [employer]OR: This AM RASS score -1. Responds to verbal stimuli. Tracking with eyes, follows commands and moving head and extremities. MS changes consistent with moderate-severe encephalopathy likely in the setting of sepsis vs. hepatic encephalopathy vs chronic alcohol effects based on imaging. MRI abnormal on 07/08 with multiple symmetric midline legions consistent with metabolic encephalopathy vs. chronic alcohol b use CT 07/06 no acute IC pathology EEG 07/06 no epileptiform activity Neurology consulted - subclinical seizure unlikely, mental status changes likely from metabolic encephalopathy vs. alcohol related; at high risk for seizures (will monitor) Off fentanyl since 07/05 Off Versed since 0500 07/04 Dced BIS monitor and Nimbex at 1200 on 07/03 CVS: BP normalized. 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 No intervention at this time. SMA/LISBET patent. Hypervolemic +38L PULM: Acute lung injury. Bronchoscopy performed today to clear bronchial secretions On CPAP: On PSV 5, Peep 5, FiO2 40% ABG this AM: PH 7.34 PCO2 36, O2 105; HCO3 20, O2 sat 98% CXR 07/09: no pneumothorax, cardiomegaly with volume overload, mild pulm edema, small layering pleural effusion Pulm Toilet: alubterol 4 puffs Q4H; Atrovent 4 puffs Q4H Dced Methylpred 40mg Q12H (given WBC elevation to ensure not masking worsening infection) on 07/09 RENAL/METABOLIC: renal function at baseline Cr ~ 1; Cr today 1.1 with worsening BUN of 61 in the setting of Lasix gtt. Improving urine output 400-500cc/shift Volume overloaded by +38L Increased Lasix drip to 15mg/hr and dced albumin given worsening volume status this AM ID: Sepsis 2/2 C. diff vs possible PNA Abdominal CT 07/06: small pleural effusion and dense bibasilar consolidation; diffuse ground glass; diffuse anasarca body wall increased from 06/29; small volume of amniopelvic ascites increased from 06/29; hepatomegaly with severe hepatic steatosis; mild peripancreatic stranding/fluid. CXR 07/09: no pneumothorax, cardiomegaly with volume overload, mild pulm edema, small layering pleural effusion procal 1.67 on 07/06 Bronchoscopy sample sent for culture this AM Blood culture from 07/01 no growth Fungal gram stain and culture - no yeast or fungus Repeat sputum gram stain and culture - marisol albicans C.diff Abx regimen: Continue Vanc PO 500mg day 11; Flagyl 500mg Q8H IV day 9 Continue caspofungin 50mg Q4H IV day 2 Received Aztreonam, Linezolid, and Levofloxacin x 3 days Received Vanc OR x 4 days Received Cefepime x 5 days Received IV vanc x 3 days ENDO: On Insulin gtt 0.9u/h; blood sugars in 90s-150s range HEME: Anemia worsening this AM H/H 7.6/24.4 from 12/15.[address] mildly improved 61 from 57 No evidence of bleeding Heparin PF4 Ab - neg Dced heparin for concern of HIT 2 Monitor CBC Consider transfusing once Hgb < 7 Electrolytes: Low Ca 7.9 (corrected 9 given albumin of 2), Mag 1.9 and Phos 3.3) Nutrition: Continue TPN given significant bowel edema inhibiting absorption of nutrition orally Added 12u insulin to TPN Thiamine 500mg Folic Acid GI: Continue TPN Persistent liver failure; LFT mildly improved this AM Tbili 5.7; AST 68, Alk phos 198 MELD score 20 (19.6% mortality risk); Child-Burns score of 11 (class C) Continue recurrent C.diff Colitis treatment: Vanc PO day 11; Flagyl IV day 9 Consulted surgery: high mortality risk for total colectomy at this time GI prophylaxis: Protonix 40mg IV BID IV access: Placed R IJ central venous cath 07/09 Placed R arm PICC line 07/05 Removed L femoral tri-lumen central venous cath and kyle 07/05 DVT Prophylaxis: SCDs PROGNOSIS: poor given high mortality in the setting of severe sepsis and multi- organ failure and poor baseline healthy Palliative care consulted Family Meeting: maintain current care plan, do not escalate care, would like to avoid surgery at this point; will reassess if condition worsens CCT: 45 minutes independent of procedures Thank you for including us in the care of this patient. Please refer to Dr. Gonzalez's addendum for further recommendations. Attending addendum, The patient was seen, examined independently, discussed with the staff on rounds and details, agree with assessment and plan of my colleague . The patient has no events overnight, she tolerated the CPAP, but she remains very lethargic and edematous. Her edema has been an issue. The patient continued to be fluid overloaded approximately over 30 kg. The patient open her eyes but barely follow commands. Review of system was not obtainable. The patient was noted to be secretional by the nursing staff. Her physical exam revealed a middle-aged female chronically ill, intubated, opening her eyes and following simple commands, was able to squeeze my fingers on the right hand, unable to keep her arms and hold above gravity, S1-S2 regular rate and rhythm, distant breath sounds bilaterally, abdomen is benign, anasarca. Her labs also were reviewed, chest x-ray also was reviewed from previous. Impression: 1. Acute respiratory failure requiring prolonged intubation. 2. Fluid overload. 3. Sepsis secondary to pneumonia, C. difficile colitis. 4. Currently with C. difficile colitis only. 5. History of liver cirrhosis. 6. Malnutrition. 7. Active smoker. #8 history of alcoholism. 9. Borderline AK I. 10. History of GI bleed earlier but not now. Plan: 1. I will continue with Lasix drip. Increase the dose. To 15 mg/h. 2. I will continue with Vanco p.o. and caspofungin IV in addition to stopping Flagyl was appropriate. 3. Bronchoscopy was done with thick secretions removed from the airways. Edema affecting the right lower lobe with extrinsic compression. Concerning for possible pleural effusion as well. 4. Appreciate nutrition and pharmacy input in regard of setting up the TPN. 5. Glucose control. 6. DVT prophylaxis. 7. Continue to watch for leukocytes trend. 8. Off steroids. 9. Her volume of distribution remains elevated. 10. We will place the patient on AC mode and change her back again to CPAP once she is more awake. 11. Case discussed with the staff on rounds and details. Critical care time spent with the patient was 45 minutes excluding procedure time. Consults & Procedures Consultants: GI: Dr Joseph Vascular: Dr Baron General Surgery: Dr. Choe IV team for PICC line Procedures: 07/01/17: left femoral TLC 07/01/17: left femoral a-line 07/01/17: intubation 07/09/17: R IJ placement Data Medications: Current Inpatient Medications Medications (Trade) Dose Ordered Sig/Razia Route Start Time Stop Time Status Last Admin Dose Admin Pantoprazole Sodium 40 mg/ Syringe 10 ml @ 5 mls/min BID IV 06/27/17 09:00 07/27/17 08:59 07/10/17 07:36 5 MLS/MIN Folic Acid 1 mg/ Syringe 10 ml @ 5 mls/min Q24H IV 06/28/17 11:00 07/28/17 10:59 07/09/17 12:36 5 MLS/MIN Ondansetron HCl (Zofran Inj) 4 mg Q6H PRN IV 06/27/17 17:46 07/27/17 17:45 Hydromorphone HCl (Dilaudid Inj) 1 mg Q3HWA PRN IV 06/29/17 09:15 07/13/17 09:14 06/30/17 20:36 1 MG Albuterol/ Ipratropium (Duoneb) 3 ml Q4 PRN INH 07/01/17 05:30 07/31/17 05:29 Future Hold 07/01/17 10:06 3 ML Albuterol (Ventolin Hfa Inhaler) 4 puffs Q4R INH 07/02/17 08:00 08/01/17 07:59 07/10/17 07:27 4 PUFFS Ipratropium [place] (Atrovent Hfa Inhaler) 4 puffs Q4R INH 07/02/17 08:00 08/01/17 07:59 07/10/17 07:27 4 PUFFS Artificial Tears (Lacri-Lube Oph Oint) 1 appln Q2H PRN OPB 07/02/17 21:45 08/01/17 21:44 Enteral Nutritional Formula (Peptamen 1.5) 1,000 ml UD PRN OG 07/04/17 11:00 08/03/17 10:59 Future Hold 07/09/17 04:52 1,000 ML Heparin Sodium (Porcine) (Heparin 10 Unit/ ml 5 ml Flush) 5 ml PRN PRN FLUSH 07/04/17 20:45 08/03/17 20:44 Insulin Human Regular 250 units/ Sodium Chloride 252.5 ml @ 0 mls/hr Q24H IV 07/08/17 09:00 08/07/17 08:59 07/09/17 09:53 3.9 MLS/HR Vancomycin HCl (Vancomycin Oral Soln) 500 mg Q6H PO 07/09/17 12:00 07/10/17 11:59 07/10/17 06:05 500 MG Raspberry (Raspberry Syrup 5ml Cup) 5 ml Q6H PO 07/09/17 12:00 07/23/17 11:59 07/10/17 06:04 5 ML Caspofungin 50 mg/ Sodium Chloride 260 ml @ 250 mls/hr Q24H IV 07/09/17 11:00 08/08/17 10:59 07/09/17 12:34 250 MLS/HR Metronidazole 500 mg/Prmx 100 ml @ 100 mls/hr Q8H IV 07/09/17 12:00 07/23/17 11:59 07/10/17 04:16 100 MLS/HR Furosemide 100 mg/ Dextrose 100 ml @ 10 mls/hr Q10H IV 07/09/17 11:15 08/08/17 11:14 07/10/17 07:35 10 MLS/HR Miscellaneous Information (Pharmacy Tpn/ Ppn Consult Active) 1 ea UD PRN N/A 07/09/17 13:45 08/08/17 13:44 Nutrition (Parenteral) 0 ml @ 0 mls/hr TODAY IV 07/09/17 14:00 07/10/17 13:59 07/09/17 16:39 49.08 MLS/HR Dextrose 1,000 ml @ 0 mls/hr Q0M PRN IV 07/09/17 13:47 08/08/17 13:46 Glucose (Glucose 40% Gel) 15-30 GRAMS 15 GRAMS... UD PRN PO 07/09/17 14:45 08/08/17 14:44 Glucose (Glucose Chew Tab) 4-8 Tablets 4 Tabl... UD PRN PO 07/09/17 14:45 08/08/17 14:44 Dextrose (Dextrose 50% 50ML Syringe) 25-50ML OF 50% DW IV FOR... UD PRN IV 07/09/17 14:45 08/08/17 14:44 07/09/17 14:20 25 ML Glucagon (Glucagon Inj) 1 mg UD PRN SQ 07/09/17 14:45 08/08/17 14:44 Thiamine HCl 500 mg/Sodium Chloride 105 ml @ 210 mls/hr Q24H IV 07/10/17 11:00 08/09/17 10:59 Miscellaneous Information (Nursing Verbal Med Order) 1 ea ONE ONCE N/A 07/10/17 10:45 07/10/17 10:46 UNV I & O: 24 hr Is/Os: 2499cc/975cc +1524cc Net total positive: 38L. UOP rate = 0.39cc/kg/ hr Vital Signs: Date Time Temp Pulse Resp B/P (MAP) Pulse Ox O2 Delivery O2 Flow Rate FiO2 07/10/17 10:43 83 22 89/49 (62) 97 07/10/17 10:41 83 23 95/46 (62) 96 07/10/17 10:39 83 22 91/44 (60) 96 07/10/17 10:37 84 20 87/46 (60) 96 Mechanical Ventilator 40 07/10/17 10:35 84 20 90/44 (59) 98 Mechanical Ventilator 40 07/10/17 10:33 85 20 95/46 (62) 98 Mechanical Ventilator 40 18 10:31 84 20 93/52 (66) 99 Mechanical Ventilator 40 18 10:30 88 20 100 Mechanical Ventilator 40 18 10:29 88 20 96/53 (67) 100 Mechanical Ventilator 40 07/10/17 10:27 86 20 90/48 (62) 99 Mechanical Ventilator 40 18 10:25 85 20 93/46 (62) 99 Mechanical Ventilator 40 07/10/17 10:23 87 20 97/57 (70) 99 Mechanical Ventilator 40 07/10/17 10:21 90 21 102/63 (76) 99 Mechanical Ventilator 40 07/10/17 10:19 93 17 101/74 (83) 99 Mechanical Ventilator 40 07/10/17 10:17 96 5 91/66 (74) 99 Mechanical Ventilator 40 07/10/17 10:15 91 17 104/66 (79) 100 Mechanical Ventilator 40 07/10/17 10:00 95 15 106/61 (76) 98 CPAP 40 Mechanical Ventilator 07/10/17 09:00 40 07/10/17 08:00 37.0 94 16 94/62 (73) 97 CPAP 40 Mechanical Ventilator 07/10/17 08:00 CPAP 40 Mechanical Ventilator 07/10/17 07:34 40 07/10/17 06:00 94 15 96 07/10/17 06:00 94 15 103/68 (80) 96 CPAP 40 Mechanical Ventilator 07/10/17 05:00 94 15 96 07/10/17 04:01 40 07/10/17 04:00 40 07/10/17 04:00 CPAP 40 Mechanical Ventilator 07/10/17 04:00 98 14 96 07/10/17 04:00 36.9 98 14 102/61 (75) 96 CPAP 40 Mechanical Ventilator 07/10/17 03:00 87 12 97 07/10/17 02:00 96 15 102/63 (76) 96 40 07/10/17 02:00 96 15 96 07/10/17 01:00 96 15 95 07/10/17 00:22 40 07/10/17 00:01 98 16 99/62 (74) 95 07/10/17 00:01 37.1 98 16 99/62 (74) 95 CPAP 40 Mechanical Ventilator 07/09/17 23:59 40 07/09/17 23:59 CPAP 40 Mechanical Ventilator 07/09/17 23:00 97 16 96 07/09/17 22:00 95 15 99/61 (74) 96 CPAP 40 Mechanical Ventilator 07/09/17 22:00 95 15 96 07/09/17 21:40 40 07/09/17 21:00 95 15 97 07/09/17 20:35 40 07/09/17 20:00 37.0 95 14 103/69 (80) 97 CPAP 40 Mechanical Ventilator 07/09/17 20:00 95 14 97 07/09/17 20:00 CPAP 40 Mechanical Ventilator 07/09/17 20:00 40 07/09/17 19:00 97 16 97 07/09/17 18:01 40 07/09/17 18:00 95 16 107/70 (82) 97 CPAP 40 Mechanical Ventilator 07/09/17 18:00 90 15 107/70 (85) 97 07/09/17 17:00 91 15 121/58 (73) 97 07/09/17 16:00 36.9 93 16 116/70 (85) 97 CPAP 40 Mechanical Ventilator 07/09/17 16:00 CPAP 40 Mechanical Ventilator 07/09/17 16:00 40 07/09/17 16:00 93 16 116/70 (93) 97 07/09/17 14:41 40 07/09/17 14:00 94 27 113/69 (84) 97 CPAP 40 Mechanical Ventilator 07/09/17 12:00 37.1 97 23 131/85 (100) 92 CPAP 40 Mechanical Ventilator 07/09/17 12:00 40 07/09/17 12:00 CPAP 40 Mechanical Ventilator 07/09/17 11:29 40 Laboratory Results: Last 24 Hours Test 07/09/17 12:12 07/09/17 12:55 07/09/17 13:00 07/09/17 13:18 Bedside Glucose 85 mg/dl 79 mg/dl 141 mg/dl Lactic Acid Level 1.1 mmol/L Test 07/09/17 14:03 07/09/17 14:22 07/09/17 14:48 07/09/17 15:53 Bedside Glucose 98 mg/dl 97 mg/dl 132 mg/dl 106 mg/dl Test 07/09/17 16:46 07/09/17 17:48 07/09/17 18:28 07/09/17 20:45 Bedside Glucose 105 mg/dl 119 mg/dl 124 mg/dl 117 mg/dl Test 07/09/17 22:51 07/10/17 00:53 07/10/17 02:35 07/10/17 06:04 Bedside Glucose 131 mg/dl 136 mg/dl 153 mg/dl White Blood Count 34.40 K/uL Red Blood Count 2.18 M/uL Hemoglobin 7.6 g/dL Hematocrit 24.4 % Mean Corpuscular Volume 111.9 fL Mean Corpuscular Hemoglobin 34.9 pg Mean Corpuscular Hemoglobin Concent 31.1 g/dl Platelet Count 61 K/uL Neutrophils (%) (Auto) 89.7 % Lymphocytes (%) (Auto) 2.8 % Monocytes (%) (Auto) 1.9 % Eosinophils (%) (Auto) 0.5 % Basophils (%) (Auto) 0.3 % Neutrophils # (Auto) 30.84 K/uL Lymphocytes # (Auto) 0.96 K/uL Monocytes # (Auto) 0.67 K/uL Eosinophils # (Auto) 0.17 K/uL Basophils # (Auto) 0.10 K/uL RDW Standard Deviation 112.8 fL RDW Coefficient of Variation 28.3 % Immature Granulocyte % (Auto) 4.8 % Immature Granulocyte # (Auto) 1.66 K/uL Nucleated RBC Absolute Count (auto) 2.11 K/uL Nucleated Red Blood Cells % 6.1 % Toxic Granulation 1+ Toxic Vacuolation 1+ Platelet Estimate DECREASED Large Platelets 1+ Polychromasia 2+ Basophilic Stippling OCCASIONAL Anisocytosis PRESENT Macrocytosis PRESENT Pappenheimer Bodies 1+ Gruber-[place] Bodies OCCASIONAL Prothrombin Time 13.9 SECONDS Prothromb Time International Ratio 1.3 Sodium Level 144 mmol/L Potassium Level 4.2 mmol/L Chloride Level 113 mmol/L Carbon Dioxide Level 20 mmol/L Anion Gap 11.0 mmol/L Blood Urea Nitrogen 61 mg/dl Creatinine 1.14 mg/dl Est Creatinine Clear Calc Drug Dose 73.3 ml/min Estimated GFR () 64.0 Estimated GFR (Non- 55.2 BUN/Creatinine Ratio 53.3 Random Glucose 133 mg/dl Lactic Acid Level 0.9 mmol/L Calcium Level 7.9 mg/dl Phosphorus Level 3.3 mg/dl Magnesium Level 1.9 mg/dl Total Bilirubin 5.7 mg/dl Aspartate Amino Transf (AST/SGOT) 68 U/L Alanine Aminotransferase (ALT/SGPT) 26 U/L Alkaline Phosphatase 198 U/L C-Reactive Protein 2.50 mg/dl Total Protein 4.7 gm/dl Albumin 2.0 gm/dl Globulin 2.7 gm/dl Albumin/Globulin Ratio 0.7 Triglycerides Level mg/dl Test 07/10/17 09:32 Blood Gas Sample Site L Radial Bedside Blood Gas pH (LAB) 7.34 Bedside Blood Gas pCO2 (LAB) 36 mmHg Bedside Blood Gas pO2 (LAB) 105 mmHg Bedside Blood Gas HCO3 (LAB) 20 meq/L Bedside Blood Gas Total CO2 21 mEq/l Bedside Blood Gas Base Excess (LAB) -6.0 meq/L Bedside Blood Gas O2 Saturation 98.0 % Leonidas Test Pass Oxygen Delivery Device Ventilator Bedside FiO2 40 % Blood Gas PEEP 5
--- NOTE | 2017-07-10 12:39 | Gastroenterology Progress Note ---
Progress Note Date of Service: Jul 10, 2017 Subjective Pt evaluation today including: conversation w/ patient, conversation w/ family (mother and stepfather), physical exam, chart review, lab review, review of studies, review of inpatient medication list CC f/u ETOH hepatitis, CDiff HPI History from nurse and chart. Pt will track but not answer questions. Per nurse patient will shake head no when asked about pain.Tube feeds have been stopped and TPN started. Pt is having loose stools. Review of Systems unobtainable secondary to mental status Medications Current Inpatient Medications Medications (Trade) Dose Ordered Sig/Razia Route Start Time Stop Time Status Last Admin Dose Admin Pantoprazole Sodium 40 mg/ Syringe 10 ml @ 5 mls/min BID IV 06/27/17 09:00 07/27/17 08:59 07/10/17 07:36 5 MLS/MIN Folic Acid 1 mg/ Syringe 10 ml @ 5 mls/min Q24H IV 06/28/17 11:00 07/28/17 10:59 07/10/17 11:22 5 MLS/MIN Ondansetron HCl (Zofran Inj) 4 mg Q6H PRN IV 06/27/17 17:46 07/27/17 17:45 Hydromorphone HCl (Dilaudid Inj) 1 mg Q3HWA PRN IV 06/29/17 09:15 07/13/17 09:14 06/30/17 20:36 1 MG Albuterol/ Ipratropium (Duoneb) 3 ml Q4 PRN INH 07/01/17 05:30 07/31/17 05:29 Future Hold 07/01/17 10:06 3 ML Albuterol (Ventolin Hfa Inhaler) 4 puffs Q4R INH 07/02/17 08:00 08/01/17 07:59 07/10/17 11:00 4 PUFFS Ipratropium [place] (Atrovent Hfa Inhaler) 4 puffs Q4R INH 07/02/17 08:00 08/01/17 07:59 07/10/17 11:00 4 PUFFS Artificial Tears (Lacri-Lube Oph Oint) 1 appln Q2H PRN OPB 07/02/17 21:45 08/01/17 21:44 Enteral Nutritional Formula (Peptamen 1.5) 1,000 ml UD PRN OG 07/04/17 11:00 08/03/17 10:59 Future Hold 07/09/17 04:52 1,000 ML Heparin Sodium (Porcine) (Heparin 10 Unit/ ml 5 ml Flush) 5 ml PRN PRN FLUSH 07/04/17 20:45 08/03/17 20:44 Insulin Human Regular 250 units/ Sodium Chloride 252.5 ml @ 0 mls/hr Q24H IV 07/08/17 09:00 08/07/17 08:59 07/10/17 11:26 0.9 MLS/HR Raspberry (Raspberry Syrup 5ml Cup) 5 ml Q6H PO 07/09/17 12:00 07/23/17 11:59 07/10/17 06:04 5 ML Caspofungin 50 mg/ Sodium Chloride 260 ml @ 250 mls/hr Q24H IV 07/09/17 11:00 08/08/17 10:59 07/10/17 11:20 250 MLS/HR Metronidazole 500 mg/Prmx 100 ml @ 100 mls/hr Q8H IV 07/09/17 12:00 07/23/17 11:59 07/10/17 11:21 100 MLS/HR Furosemide 100 mg/ Dextrose 100 ml @ 10 mls/hr Q10H IV 07/09/17 11:15 08/08/17 11:14 07/10/17 07:35 10 MLS/HR Miscellaneous Information (Pharmacy Tpn/ Ppn Consult Active) 1 ea UD PRN N/A 07/09/17 13:45 08/08/17 13:44 Nutrition (Parenteral) 0 ml @ 0 mls/hr TODAY IV 07/09/17 14:00 07/10/17 13:59 07/09/17 16:39 49.08 MLS/HR Dextrose 1,000 ml @ 0 mls/hr Q0M PRN IV 07/09/17 13:47 08/08/17 13:46 Glucose (Glucose 40% Gel) 15-30 GRAMS 15 GRAMS... UD PRN PO 07/09/17 14:45 08/08/17 14:44 Glucose (Glucose Chew Tab) 4-8 Tablets 4 Tabl... UD PRN PO 07/09/17 14:45 08/08/17 14:44 Dextrose (Dextrose 50% 50ML Syringe) 25-50ML OF 50% DW IV FOR... UD PRN IV 07/09/17 14:45 08/08/17 14:44 07/09/17 14:20 25 ML Glucagon (Glucagon Inj) 1 mg UD PRN SQ 07/09/17 14:45 08/08/17 14:44 Thiamine HCl 500 mg/Sodium Chloride 105 ml @ 210 mls/hr Q24H IV 07/10/17 11:00 08/09/17 10:59 07/10/17 11:20 210 MLS/HR Objective Vital Signs Date Time Temp Pulse Resp B/P (MAP) Pulse Ox O2 Delivery O2 Flow Rate FiO2 07/10/17 12:00 40 07/10/17 12:00 37.2 92 15 108/64 (79) 97 Mechanical Ventilator 40 07/10/17 12:00 Mechanical Ventilator 40 07/10/17 11:00 40 07/10/17 10:43 83 22 89/49 (62) 97 07/10/17 10:41 83 23 95/46 (62) 96 07/10/17 10:39 83 22 91/44 (60) 96 07/10/17 10:37 84 20 87/46 (60) 96 Mechanical Ventilator 40 07/10/17 10:35 84 20 90/44 (59) 98 Mechanical Ventilator 40 07/10/17 10:33 85 20 95/46 (62) 98 Mechanical Ventilator 40 07/10/17 10:31 84 20 93/52 (66) 99 Mechanical Ventilator 40 07/10/17 10:30 88 20 100 Mechanical Ventilator 40 07/10/17 10:29 88 20 96/53 (67) 100 Mechanical Ventilator 40 07/10/17 10:27 86 20 90/48 (62) 99 Mechanical Ventilator 40 07/10/17 10:25 85 20 93/46 (62) 99 Mechanical Ventilator 40 07/10/17 10:23 87 20 97/57 (70) 99 Mechanical Ventilator 40 07/10/17 10:21 90 21 102/63 (76) 99 Mechanical Ventilator 40 07/10/17 10:19 93 17 101/74 (83) 99 Mechanical Ventilator 40 07/10/17 10:17 96 5 91/66 (74) 99 Mechanical Ventilator 40 07/10/17 10:15 91 17 104/66 (79) 100 Mechanical Ventilator 40 07/10/17 10:00 95 15 106/61 (76) 98 CPAP 40 Mechanical Ventilator 07/10/17 09:00 40 07/10/17 08:00 37.0 94 16 94/62 (73) 97 CPAP 40 Mechanical Ventilator 07/10/17 08:00 CPAP 40 07/10/17 08:00 CPAP 40 Mechanical Ventilator 07/10/17 07:34 40 07/10/17 06:00 94 15 96 07/10/17 06:00 94 15 103/68 (80) 96 CPAP 40 Mechanical Ventilator 07/10/17 05:00 94 15 96 07/10/17 04:01 40 07/10/17 04:00 40 07/10/17 04:00 CPAP 40 Mechanical Ventilator 07/10/17 04:00 98 14 96 07/10/17 04:00 36.9 98 14 102/61 (75) 96 CPAP 40 Mechanical Ventilator 07/10/17 03:00 87 12 97 07/10/17 02:00 96 15 102/63 (76) 96 40 07/10/17 02:00 96 15 96 07/10/17 01:00 96 15 95 07/10/17 00:22 40 07/10/17 00:01 98 16 99/62 (74) 95 07/10/17 00:01 37.1 98 16 99/62 (74) 95 CPAP 40 Mechanical Ventilator 07/09/17 23:59 40 07/09/17 23:59 CPAP 40 Mechanical Ventilator 07/09/17 23:00 97 16 96 07/09/17 22:00 95 15 99/61 (74) 96 CPAP 40 Mechanical Ventilator 07/09/17 22:00 95 15 96 18 21:40 40 18 21:00 95 15 97 18 20:35 40 18 20:00 37.0 95 14 103/69 (80) 97 CPAP 40 Mechanical Ventilator 07/09/17 20:00 95 14 97 18 20:00 CPAP 40 Mechanical Ventilator 07/09/17 20:00 40 18 19:00 97 16 97 18 18:01 40 07/09/17 18:00 95 16 107/70 (82) 97 CPAP 40 Mechanical Ventilator 07/09/17 18:00 90 15 107/70 (85) 97 07/09/17 17:00 91 15 121/58 (73) 97 07/09/17 16:00 36.9 93 16 116/70 (85) 97 CPAP 40 Mechanical Ventilator 07/09/17 16:00 CPAP 40 Mechanical Ventilator 07/09/17 16:00 40 07/09/17 16:00 93 16 116/70 (93) 97 07/09/17 14:41 40 07/09/17 14:00 94 27 113/69 (84) 97 CPAP 40 Mechanical Ventilator Physical Exam General Appearance: WD/WN, no apparent distress Respiratory/Chest: + crackles, + pertinent finding (on vent) Cardiovascular: regular rate, rhythm, no murmur Abdomen: normal bowel sounds, non tender, soft, no organomegaly Neurologic/Psych: alert, normal mood/affect, oriented x 3 Skin: normal color Laboratory Results Last 24 Hours Test 07/09/17 12:55 07/09/17 13:00 07/09/17 13:18 07/09/17 14:03 Lactic Acid Level 1.1 mmol/L Bedside Glucose 79 mg/dl 141 mg/dl 98 mg/dl Test 07/09/17 14:22 07/09/17 14:48 07/09/17 15:53 07/09/17 16:46 Bedside Glucose 97 mg/dl 132 mg/dl 106 mg/dl 105 mg/dl Test 07/09/17 17:48 07/09/17 18:28 07/09/17 20:45 07/09/17 22:51 Bedside Glucose 119 mg/dl 124 mg/dl 117 mg/dl 131 mg/dl Test 07/10/17 00:53 07/10/17 02:35 07/10/17 06:04 07/10/17 09:32 Bedside Glucose 136 mg/dl 153 mg/dl White Blood Count 34.40 K/uL Red Blood Count 2.18 M/uL Hemoglobin 7.6 g/dL Hematocrit 24.4 % Mean Corpuscular Volume 111.9 fL Mean Corpuscular Hemoglobin 34.9 pg Mean Corpuscular Hemoglobin Concent 31.1 g/dl Platelet Count 61 K/uL Neutrophils (%) (Auto) 89.7 % Lymphocytes (%) (Auto) 2.8 % Monocytes (%) (Auto) 1.9 % Eosinophils (%) (Auto) 0.5 % Basophils (%) (Auto) 0.3 % Neutrophils # (Auto) 30.84 K/uL Lymphocytes # (Auto) 0.96 K/uL Monocytes # (Auto) 0.67 K/uL Eosinophils # (Auto) 0.17 K/uL Basophils # (Auto) 0.10 K/uL RDW Standard Deviation 112.8 fL RDW Coefficient of Variation 28.3 % Immature Granulocyte % (Auto) 4.8 % Immature Granulocyte # (Auto) 1.66 K/uL Nucleated RBC Absolute Count (auto) 2.11 K/uL Nucleated Red Blood Cells % 6.1 % Toxic Granulation 1+ Toxic Vacuolation 1+ Platelet Estimate DECREASED Large Platelets 1+ Polychromasia 2+ Basophilic Stippling OCCASIONAL Anisocytosis PRESENT Macrocytosis PRESENT Pappenheimer Bodies 1+ [place]uber[place] Bodies OCCASIONAL Prothrombin Time 13.9 SECONDS Prothromb Time International Ratio 1.3 Sodium Level 144 mmol/L Potassium Level 4.2 mmol/L Chloride Level 113 mmol/L Carbon Dioxide Level 20 mmol/L Anion Gap 11.0 mmol/L Blood Urea Nitrogen 61 mg/dl Creatinine 1.14 mg/dl Est Creatinine Clear Calc Drug Dose 73.3 ml/min Estimated GFR () 64.0 Estimated GFR (Non- 55.2 BUN/Creatinine Ratio 53.3 Random Glucose 133 mg/dl Lactic Acid Level 0.9 mmol/L Calcium Level 7.9 mg/dl Phosphorus Level 3.3 mg/dl Magnesium Level 1.9 mg/dl Total Bilirubin 5.7 mg/dl Aspartate Amino Transf (AST/SGOT) 68 U/L Alanine Aminotransferase (ALT/SGPT) 26 U/L Alkaline Phosphatase 198 U/L C-Reactive Protein 2.50 mg/dl Total Protein 4.7 gm/dl Albumin 2.0 gm/dl Globulin 2.7 gm/dl Albumin/Globulin Ratio 0.7 Triglycerides Level mg/dl Blood Gas Sample Site L Radial Bedside Blood Gas pH (LAB) 7.34 Bedside Blood Gas pCO2 (LAB) 36 mmHg Bedside Blood Gas pO2 (LAB) 105 mmHg Bedside Blood Gas HCO3 (LAB) 20 meq/L Bedside Blood Gas Total CO2 21 mEq/l Bedside Blood Gas Base Excess (LAB) -6.0 meq/L Bedside Blood Gas O2 Saturation 98.0 % Leonidas Test Pass Oxygen Delivery Device Ventilator Bedside FiO2 40 % Blood Gas PEEP 5 Assessment and Plan alcoholic liver disease--LFTS trending down and INR stable to no acute liver decompensation mental status changes---ammonia was normal Elevated WBC--improved ascites--minimal on f/u CT 07/06/17 so doubt has SBP peripancreatic stranding on CT--could have an element of pancreatitis but this is not major issue and should continue tube feeds. Will repeat lipase in am. hepatomegaly--presumably from ETOH elevated LFTS--from ETOH elev INR from ETOH Cdiff colitis--recurrent diarrhea may have been from tube feeds but check Cdiff againg nutrition--on TPN at present Thickened colon on admit CT--most likely from Cdiff. 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 Also if ischemic bowel were original problem the repeat CT 07/06 would have shown more significant bowel findings (other than sigmoid diverticulosis, no other bowel findings mentioned on CT). Continue supportive care. Guarded prognosis.
--- NOTE | 2017-07-10 13:01 | Pharmacy Progress Note ---
Parenteral Nutrition Consult Date of Service Jul 10, 2017. [facility] was consulted on 07/09 to manage parenteral nutrition orders for this patient. Subjective The patient is currently on day 2 of central parenteral nutrition for malnutrition. Objective Height (Feet): 5 Height (Inches): 8.00 Weight (Kilograms): 105.300 Diet: Fluid Restriction Intake & Output (Last 72 Hr): 07/09/17 07/10/17 07/11/17 08:00 08:00 08:00 Intake Total 2205 ml 3212 ml Output Total 725 ml 1175 ml Balance 1480 ml 2037 ml Laboratory Data (Last 24 Hr): Test 07/10/17 06:04 Alanine Aminotransferase (ALT/SGPT) 26 U/L (12-78) Albumin 2.0 gm/dl (3.4-5.0) Alkaline Phosphatase 198 U/L (45-117) Aspartate Amino Transf (AST/SGOT) 68 U/L (15-37) Blood Urea Nitrogen 61 mg/dl (7-18) Calcium Level 7.9 mg/dl (8.5-10.1) Carbon Dioxide Level 20 mmol/L (21-32) Chloride Level 113 mmol/L (98-107) Creatinine 1.14 mg/dl (0.60-1.20) Magnesium Level 1.9 mg/dl (1.8-2.4) Phosphorus Level 3.3 mg/dl (2.5-4.9) Potassium Level 4.2 mmol/L (3.5-5.1) Random Glucose 133 mg/dl (70-99) Sodium Level 144 mmol/L (136-145) Total Bilirubin 5.7 mg/dl (0.2-1) Triglycerides Level mg/dl (0-150) Nutrition Assessment Please refer to the Notes section of the EMR for 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 Assessment Will continue to concentrate TPN as much as possible given volume overload. The patient has shown little to no evidence of refeeding. Therefore, I will increase dextrose content today and will increase to goal tomorrow. Lipids will also be added to the bag today. The patient's blood sugar has fluctuated throughout ICU stay secondary to critical illness and steroids. While steroids have been discontinued, the need for the insulin drip has also been variable. We will continue with the drip for today to accommodate uptitration of dextrose and lipids in TPN. If the patient still requires insulin tomorrow, it will be added to the TPN formula. Plan For day 2 of PN administration, the following will be ordered: Macronutrients Amino acids 100 grams/day Dextrose 175 grams/day Lipids 50 grams/day Micronutrients Combined electrolytes 20 mL - contains 35 mEq Na, 20 meq K, 4.5 mEq Ca, 5 mEq Mg , 35 mEq Cl, 29.5 mEq acetate per 20 mL Sodium phosphate 12 MMol Sodium chloride 0 mEq Sodium acetate 20 mEq Potassium phosphate [] mMol Potassium chloride 0 mEq Potassium acetate 0 mEq Magnesium sulfate 0 mEq Calcium gluconate 0 mEq Multivitamins 10 mL Trace Elements 1 mL Additional additives: Total volume ~1500 mL to be infused over 24 hrs will provide ~1400 kcal/day Labs, as indicated, will be ordered per protocol Pharmacy will continue to follow and adjust parenteral nutrition orders on a daily basis. Thank you for allowing us to participate in the care of this patient.
[2017-07-10] MEDS: CUSTOM CENTRAL PN 1 BAG IV SCH (14:00)
--- NOTE | 2017-07-10 14:48 | Progress Note ---
Subjective Date of Service: Jul 10, 2017. Problem List Medical Problems: (1) Abdominal pain Status: Acute (2) Acute pancreatitis Status: Acute (3) Alcohol abuse Status: Acute (4) Alcohol intoxication Status: Acute (5) Anemia Status: Acute (6) Anemia Status: Acute (7) Biliary obstruction Status: Acute (8) C. difficile colitis Status: Acute (9) C. difficile diarrhea Status: Acute (10) Chest pain Status: Acute (11) Contusion of multiple sites Status: Acute (12) Dehydration Status: Acute (13) Dehydration Status: Acute (14) Encounter for smoking cessation counseling Status: Acute (15) Epigastric abdominal pain Status: Acute (16) Fall Status: Acute (17) Fall due to slipping on ice or snow Status: Acute (18) Fracture of left distal radius Status: Acute (19) Hypocalcemia Status: Acute (20) Hypomagnesemia Status: Acute (21) Hypomagnesemia Status: Acute (22) Hypotension Status: Acute (23) Lactic acidosis Status: Acute (24) Liver failure Status: Acute (25) Pancreatitis Status: Acute Review of Systems Due to patient intubation status review of system was unobtainable Medications Current Inpatient Medications Medications (Trade) Dose Ordered Sig/Razia Route Start Time Stop Time Status Last Admin Dose Admin Pantoprazole Sodium 40 mg/ Syringe 10 ml @ 5 mls/min BID IV 06/27/17 09:00 07/27/17 08:59 07/10/17 07:36 5 MLS/MIN Folic Acid 1 mg/ Syringe 10 ml @ 5 mls/min Q24H IV 06/28/17 11:00 07/28/17 10:59 07/10/17 11:22 5 MLS/MIN Ondansetron HCl (Zofran Inj) 4 mg Q6H PRN IV 06/27/17 17:46 07/27/17 17:45 Hydromorphone HCl (Dilaudid Inj) 1 mg Q3HWA PRN IV 06/29/17 09:15 07/13/17 09:14 06/30/17 20:36 1 MG Albuterol/ Ipratropium (Duoneb) 3 ml Q4 PRN INH 07/01/17 05:30 07/31/17 05:29 Future Hold 07/01/17 10:06 3 ML Albuterol (Ventolin Hfa Inhaler) 4 puffs Q4R INH 07/02/17 08:00 08/01/17 07:59 07/10/17 11:00 4 PUFFS Ipratropium [place] (Atrovent Hfa Inhaler) 4 puffs Q4R INH 07/02/17 08:00 08/01/17 07:59 07/10/17 11:00 4 PUFFS Artificial Tears (Lacri-Lube Oph Oint) 1 appln Q2H PRN OPB 07/02/17 21:45 08/01/17 21:44 Enteral Nutritional Formula (Peptamen 1.5) 1,000 ml UD PRN OG 07/04/17 11:00 08/03/17 10:59 Future Hold 07/09/17 04:52 1,000 ML Heparin Sodium (Porcine) (Heparin 10 Unit/ ml 5 ml Flush) 5 ml PRN PRN FLUSH 07/04/17 20:45 08/03/17 20:44 Insulin Human Regular 250 units/ Sodium Chloride 252.5 ml @ 0 mls/hr Q24H IV 07/08/17 09:00 08/07/17 08:59 07/10/17 11:26 0.9 MLS/HR Raspberry (Raspberry Syrup 5ml Cup) 5 ml Q6H PO 07/09/17 12:00 07/23/17 11:59 07/10/17 06:04 5 ML Caspofungin 50 mg/ Sodium Chloride 260 ml @ 250 mls/hr Q24H IV 07/09/17 11:00 08/08/17 10:59 07/10/17 11:20 250 MLS/HR Metronidazole 500 mg/Prmx 100 ml @ 100 mls/hr Q8H IV 07/09/17 12:00 07/23/17 11:59 07/10/17 11:21 100 MLS/HR Furosemide 100 mg/ Dextrose 100 ml @ 10 mls/hr Q10H IV 07/09/17 11:15 08/08/17 11:14 07/10/17 07:35 10 MLS/HR Miscellaneous Information (Pharmacy Tpn/ Ppn Consult Active) 1 ea UD PRN N/A 07/09/17 13:45 08/08/17 13:44 Nutrition (Parenteral) 0 ml @ 0 mls/hr TODAY IV 07/09/17 14:00 07/10/17 15:59 07/09/17 16:39 49.08 MLS/HR Dextrose 1,000 ml @ 0 mls/hr Q0M PRN IV 07/09/17 13:47 08/08/17 13:46 Glucose (Glucose 40% Gel) 15-30 GRAMS 15 GRAMS... UD PRN PO 07/09/17 14:45 08/08/17 14:44 Glucose (Glucose Chew Tab) 4-8 Tablets 4 Tabl... UD PRN PO 07/09/17 14:45 08/08/17 14:44 Dextrose (Dextrose 50% 50ML Syringe) 25-50ML OF 50% DW IV FOR... UD PRN IV 07/09/17 14:45 08/08/17 14:44 07/09/17 14:20 25 ML Glucagon (Glucagon Inj) 1 mg UD PRN SQ 07/09/17 14:45 08/08/17 14:44 Thiamine HCl 500 mg/Sodium Chloride 105 ml @ 210 mls/hr Q24H IV 07/10/17 11:00 08/09/17 10:59 07/10/17 11:20 210 MLS/HR Nutrition (Parenteral) 0 ml @ 0 mls/hr TODAY IV 07/10/17 16:00 07/11/17 15:59 Objective Vital Signs Date Time Temp Pulse Resp B/P (MAP) Pulse Ox O2 Delivery O2 Flow Rate FiO2 07/10/17 14:01 40 07/10/17 12:00 40 07/10/17 12:00 37.2 92 15 108/64 (79) 97 Mechanical Ventilator 40 07/10/17 12:00 Mechanical Ventilator 40 07/10/17 11:00 40 07/10/17 10:43 83 22 89/49 (62) 97 07/10/17 10:41 83 23 95/46 (62) 96 07/10/17 10:39 83 22 91/44 (60) 96 07/10/17 10:37 84 20 87/46 (60) 96 Mechanical Ventilator 40 07/10/17 10:35 84 20 90/44 (59) 98 Mechanical Ventilator 40 07/10/17 10:33 85 20 95/46 (62) 98 Mechanical Ventilator 40 07/10/17 10:31 84 20 93/52 (66) 99 Mechanical Ventilator 40 07/10/17 10:30 88 20 100 Mechanical Ventilator 40 07/10/17 10:29 88 20 96/53 (67) 100 Mechanical Ventilator 40 07/10/17 10:27 86 20 90/48 (62) 99 Mechanical Ventilator 40 07/10/17 10:25 85 20 93/46 (62) 99 Mechanical Ventilator 40 07/10/17 10:23 87 20 97/57 (70) 99 Mechanical Ventilator 40 07/10/17 10:21 90 21 102/63 (76) 99 Mechanical Ventilator 40 07/10/17 10:19 93 17 101/74 (83) 99 Mechanical Ventilator 40 07/10/17 10:17 96 5 91/66 (74) 99 Mechanical Ventilator 40 07/10/17 10:15 91 17 104/66 (79) 100 Mechanical Ventilator 40 07/10/17 10:00 95 15 106/61 (76) 98 CPAP 40 Mechanical Ventilator 07/10/17 09:00 40 07/10/17 08:00 37.0 94 16 94/62 (73) 97 CPAP 40 Mechanical Ventilator 07/10/17 08:00 CPAP 40 07/10/17 08:00 CPAP 40 Mechanical Ventilator 07/10/17 07:34 40 07/10/17 06:00 94 15 96 07/10/17 06:00 94 15 103/68 (80) 96 CPAP 40 Mechanical Ventilator 07/10/17 05:00 94 15 96 07/10/17 04:01 40 07/10/17 04:00 40 07/10/17 04:00 CPAP 40 Mechanical Ventilator 07/10/17 04:00 98 14 96 07/10/17 04:00 36.9 98 14 102/61 (75) 96 CPAP 40 Mechanical Ventilator 07/10/17 03:00 87 12 97 07/10/17 02:00 96 15 102/63 (76) 96 40 07/10/17 02:00 96 15 96 07/10/17 01:00 96 15 95 07/10/17 00:22 40 07/10/17 00:01 98 16 99/62 (74) 95 07/10/17 00:01 37.1 98 16 99/62 (74) 95 CPAP 40 Mechanical Ventilator 07/09/17 23:59 40 07/09/17 23:59 CPAP 40 Mechanical Ventilator 07/09/17 23:00 97 16 96 07/09/17 22:00 95 15 99/61 (74) 96 CPAP 40 Mechanical Ventilator 07/09/17 22:00 95 15 96 07/09/17 21:40 40 07/09/17 21:00 95 15 97 07/09/17 20:35 40 07/09/17 20:00 37.0 95 14 103/69 (80) 97 CPAP 40 Mechanical Ventilator 07/09/17 20:00 95 14 97 07/09/17 20:00 CPAP 40 Mechanical Ventilator 07/09/17 20:00 40 07/09/17 19:00 97 16 97 07/09/17 18:01 40 07/09/17 18:00 95 16 107/70 (82) 97 CPAP 40 Mechanical Ventilator 07/09/17 18:00 90 15 107/70 (85) 97 07/09/17 17:00 91 15 121/58 (73) 97 07/09/17 16:00 36.9 93 16 116/70 (85) 97 CPAP 40 Mechanical Ventilator 07/09/17 16:00 CPAP 40 Mechanical Ventilator 07/09/17 16:00 40 07/09/17 16:00 93 16 116/70 (93) 97 07/09/17 14:41 40 Physical Exam Comments: Physical examination General patient appears to be comfortable, not in acute distress, anasarca and edema all over her body HEENT: Atraumatic , normocephalic /no jaundice /no pallor /anicteric /no dry mucous membrane /normal external ear inspection Neck: Supple /no swelling /central trach Heart: S1/S2 normal/regular rate and rhythm/no gallop /no rub /no murmur Lungs: Decreased air entry bilaterally/normal chest with expansion/scattered rhonchi/bibasilar rales/no wheezing/no use of accessory muscles of respiration Abdomen: Soft/nontender/no guarding/no rebound/no organomegaly/no pulsatile mass Musculoskeletal: No swelling/no edema/no tenderness/normal range of motion Neuro exam: Awake alert was able to follow commands on the vent, moves all extreme Psychiatric evaluation: No depressed mood/normal affect Skin: No rash on exposed skin area/no erythema Extremity: Normal pulse/no pitting edema/no clubbing or cyanosis Endocrine/lymphatic: No obvious lymphadenopathy /no lymphedema Laboratory Results Last 24 Hours Test 3/19/18 14:48 07/09/17 15:53 07/09/17 16:46 07/09/17 17:48 Bedside Glucose 132 mg/dl 106 mg/dl 105 mg/dl 119 mg/dl Test 07/09/17 18:28 07/09/17 20:45 07/09/17 22:51 07/10/17 00:53 Bedside Glucose 124 mg/dl 117 mg/dl 131 mg/dl 136 mg/dl Test 07/10/17 02:35 07/10/17 06:04 07/10/17 09:32 Bedside Glucose 153 mg/dl White Blood Count 34.40 K/uL Red Blood Count 2.18 M/uL Hemoglobin 7.6 g/dL Hematocrit 24.4 % Mean Corpuscular Volume 111.9 fL Mean Corpuscular Hemoglobin 34.9 pg Mean Corpuscular Hemoglobin Concent 31.1 g/dl Platelet Count 61 K/uL Neutrophils (%) (Auto) 89.7 % Lymphocytes (%) (Auto) 2.8 % Monocytes (%) (Auto) 1.9 % Eosinophils (%) (Auto) 0.5 % Basophils (%) (Auto) 0.3 % Neutrophils # (Auto) 30.84 K/uL Lymphocytes # (Auto) 0.96 K/uL Monocytes # (Auto) 0.67 K/uL Eosinophils # (Auto) 0.17 K/uL Basophils # (Auto) 0.10 K/uL RDW Standard Deviation 112.8 fL RDW Coefficient of Variation 28.3 % Immature Granulocyte % (Auto) 4.8 % Immature Granulocyte # (Auto) 1.66 K/uL Nucleated RBC Absolute Count (auto) 2.11 K/uL Nucleated Red Blood Cells % 6.1 % Toxic Granulation 1+ Toxic Vacuolation 1+ Platelet Estimate DECREASED Large Platelets 1+ Polychromasia 2+ Basophilic Stippling OCCASIONAL Anisocytosis PRESENT Macrocytosis PRESENT Pappenheimer Bodies 1+ [place]uber-[place] Bodies OCCASIONAL Prothrombin Time 13.9 SECONDS Prothromb Time International Ratio 1.3 Sodium Level 144 mmol/L Potassium Level 4.2 mmol/L Chloride Level 113 mmol/L Carbon Dioxide Level 20 mmol/L Anion Gap 11.0 mmol/L Blood Urea Nitrogen 61 mg/dl Creatinine 1.14 mg/dl Est Creatinine Clear Calc Drug Dose 73.3 ml/min Estimated GFR () 64.0 Estimated GFR (Non- 55.2 BUN/Creatinine Ratio 53.3 Random Glucose 133 mg/dl Lactic Acid Level 0.9 mmol/L Calcium Level 7.9 mg/dl Phosphorus Level 3.3 mg/dl Magnesium Level 1.9 mg/dl Total Bilirubin 5.7 mg/dl Aspartate Amino Transf (AST/SGOT) 68 U/L Alanine Aminotransferase (ALT/SGPT) 26 U/L Alkaline Phosphatase 198 U/L C-Reactive Protein 2.50 mg/dl Total Protein 4.7 gm/dl Albumin 2.0 gm/dl Globulin 2.7 gm/dl Albumin/Globulin Ratio 0.7 Triglycerides Level mg/dl Blood Gas Sample Site L Radial Bedside Blood Gas pH (LAB) 7.34 Bedside Blood Gas pCO2 (LAB) 36 mmHg Bedside Blood Gas pO2 (LAB) 105 mmHg Bedside Blood Gas HCO3 (LAB) 20 meq/L Bedside Blood Gas Total CO2 21 mEq/l Bedside Blood Gas Base Excess (LAB) -6.0 meq/L Bedside Blood Gas O2 Saturation 98.0 % Leonidas Test Pass Oxygen Delivery Device Ventilator Bedside FiO2 40 % Blood Gas PEEP 5 Assessment and Plan 52 years old female with liver cirrhosis, presented to the hospital with acute kidney injury, bloody diarrhea, hypertension and C. difficile colitis. Patient had acute respiratory failure secondary to above and was intubated. Currently has anasarca in ICU. Assessment Septic shock secondary to below Severe C. difficile colitis Acute hypoxic respiratory failure/ARDS Alcoholic liver hepatitis with liver failure / MELD score is 20 Acute kidney injury secondary to decreased perfusion, septic shock Electrolyte imbalance Chronic blood loss anemia, as per family chronic GI bleed thrombocytopenia likely secondary to liver disease, platelets count today is above 80 Plan Continue vent management as per critical care team, status post successful bronchoscopy today, follow-up cultures Severe leukocytosis is improving Continue oral Vanco /Flagyl IV Lasix drip started by primary team Follow-up I/o Steroids tapered by critical care If white blood cell count does not improve significantly, will have low tolerance to obtaining CT scan abdomen and pelvis with contrast Titrating benzo slowly continue GI prophylaxis Platelets today are above 80 and INR is currently normal, consider starting patient on heparin twice daily for DVT prophylaxis, Continued [facility] stay due to: multiple IV medications needed Discharge planning: uncertain
--- NOTE | 2017-07-10 15:54 | Infectious Disease Progress Nt ---
Progress Note Date of Service Jul 10, 2017. Subjective Pt evaluation today including: physical exam, chart review, lab review, review of studies, conversation w/ application packaging consultant, review of inpatient medication list Patient is slightly more alert, responds somewhat to voice. Hemodynamically stable overnight. No significant fever. Medications Current Inpatient Medications Medications (Trade) Dose Ordered Sig/Razia Route Start Time Stop Time Status Last Admin Dose Admin Pantoprazole Sodium 40 mg/ Syringe 10 ml @ 5 mls/min BID IV 06/27/17 09:00 07/27/17 08:59 07/10/17 07:36 5 MLS/MIN Folic Acid 1 mg/ Syringe 10 ml @ 5 mls/min Q24H IV 06/28/17 11:00 07/28/17 10:59 07/10/17 11:22 5 MLS/MIN Ondansetron HCl (Zofran Inj) 4 mg Q6H PRN IV 06/27/17 17:46 07/27/17 17:45 Hydromorphone HCl (Dilaudid Inj) 1 mg Q3HWA PRN IV 06/29/17 09:15 07/13/17 09:14 06/30/17 20:36 1 MG Albuterol/ Ipratropium (Duoneb) 3 ml Q4 PRN INH 07/01/17 05:30 07/31/17 05:29 Future Hold 07/01/17 10:06 3 ML Albuterol (Ventolin Hfa Inhaler) 4 puffs Q4R INH 07/02/17 08:00 08/01/17 07:59 07/10/17 15:07 4 PUFFS Ipratropium [place] (Atrovent Hfa Inhaler) 4 puffs Q4R INH 07/02/17 08:00 08/01/17 07:59 07/10/17 15:07 4 PUFFS Artificial Tears (Lacri-Lube Oph Oint) 1 appln Q2H PRN OPB 07/02/17 21:45 08/01/17 21:44 Enteral Nutritional Formula (Peptamen 1.5) 1,000 ml UD PRN OG 07/04/17 11:00 08/03/17 10:59 Future Hold 07/09/17 04:52 1,000 ML Heparin Sodium (Porcine) (Heparin 10 Unit/ ml 5 ml Flush) 5 ml PRN PRN FLUSH 07/04/17 20:45 08/03/17 20:44 Insulin Human Regular 250 units/ Sodium Chloride 252.5 ml @ 0 mls/hr Q24H IV 07/08/17 09:00 08/07/17 08:59 07/10/17 11:26 0.9 MLS/HR Raspberry (Raspberry Syrup 5ml Cup) 5 ml Q6H PO 07/09/17 12:00 07/23/17 11:59 07/10/17 06:04 5 ML Caspofungin 50 mg/ Sodium Chloride 260 ml @ 250 mls/hr Q24H IV 07/09/17 11:00 08/08/17 10:59 07/10/17 11:20 250 MLS/HR Metronidazole 500 mg/Prmx 100 ml @ 100 mls/hr Q8H IV 07/09/17 12:00 07/23/17 11:59 07/10/17 11:21 100 MLS/HR Furosemide 100 mg/ Dextrose 100 ml @ 10 mls/hr Q10H IV 07/09/17 11:15 08/08/17 11:14 07/10/17 15:46 10 MLS/HR Miscellaneous Information (Pharmacy Tpn/ Ppn Consult Active) 1 ea UD PRN N/A 07/09/17 13:45 08/08/17 13:44 Nutrition (Parenteral) 0 ml @ 0 mls/hr TODAY IV 07/09/17 14:00 07/10/17 15:59 07/09/17 16:39 49.08 MLS/HR Dextrose 1,000 ml @ 0 mls/hr Q0M PRN IV 07/09/17 13:47 08/08/17 13:46 Glucose (Glucose 40% Gel) 15-30 GRAMS 15 GRAMS... UD PRN PO 07/09/17 14:45 08/08/17 14:44 Glucose (Glucose Chew Tab) 4-8 Tablets 4 Tabl... UD PRN PO 07/09/17 14:45 08/08/17 14:44 Dextrose (Dextrose 50% 50ML Syringe) 25-50ML OF 50% DW IV FOR... UD PRN IV 07/09/17 14:45 08/08/17 14:44 07/09/17 14:20 25 ML Glucagon (Glucagon Inj) 1 mg UD PRN SQ 07/09/17 14:45 08/08/17 14:44 Thiamine HCl 500 mg/Sodium Chloride 105 ml @ 210 mls/hr Q24H IV 07/10/17 11:00 08/09/17 10:59 07/10/17 11:20 210 MLS/HR Nutrition (Parenteral) 0 ml @ 0 mls/hr TODAY IV 07/10/17 16:00 07/11/17 15:59 07/10/17 15:46 0 MLS/HR Chlorothiazide Sodium 1000 mg/ Dextrose 86 ml @ 200 mls/hr ONE IV 07/10/17 15:45 08/09/17 15:44 UNV Objective Vital Signs Date Time Temp Pulse Resp B/P (MAP) Pulse Ox O2 Delivery O2 Flow Rate FiO2 07/10/17 15:11 40 07/10/17 14:01 40 07/10/17 14:00 93 15 111/72 (85) 98 CPAP 40 Mechanical Ventilator 07/10/17 12:00 40 07/10/17 12:00 37.2 92 15 108/64 (79) 97 Mechanical Ventilator 40 07/10/17 12:00 Mechanical Ventilator 40 07/10/17 11:00 40 07/10/17 10:43 83 22 89/49 (62) 97 07/10/17 10:41 83 23 95/46 (62) 96 07/10/17 10:39 83 22 91/44 (60) 96 07/10/17 10:37 84 20 87/46 (60) 96 Mechanical Ventilator 40 07/10/17 10:35 84 20 90/44 (59) 98 Mechanical Ventilator 40 07/10/17 10:33 85 20 95/46 (62) 98 Mechanical Ventilator 40 07/10/17 10:31 84 20 93/52 (66) 99 Mechanical Ventilator 40 07/10/17 10:30 88 20 100 Mechanical Ventilator 40 07/10/17 10:29 88 20 96/53 (67) 100 Mechanical Ventilator 40 07/10/17 10:27 86 20 90/48 (62) 99 Mechanical Ventilator 40 07/10/17 10:25 85 20 93/46 (62) 99 Mechanical Ventilator 40 07/10/17 10:23 87 20 97/57 (70) 99 Mechanical Ventilator 40 07/10/17 10:21 90 21 102/63 (76) 99 Mechanical Ventilator 40 07/10/17 10:19 93 17 101/74 (83) 99 Mechanical Ventilator 40 07/10/17 10:17 96 5 91/66 (74) 99 Mechanical Ventilator 40 07/10/17 10:15 91 17 104/66 (79) 100 Mechanical Ventilator 40 07/10/17 10:00 95 15 106/61 (76) 98 CPAP 40 Mechanical Ventilator 07/10/17 09:00 40 07/10/17 08:00 37.0 94 16 94/62 (73) 97 CPAP 40 Mechanical Ventilator 07/10/17 08:00 CPAP 40 07/10/17 08:00 CPAP 40 Mechanical Ventilator 07/10/17 07:34 40 07/10/17 06:00 94 15 96 07/10/17 06:00 94 15 103/68 (80) 96 CPAP 40 Mechanical Ventilator 07/10/17 05:00 94 15 96 07/10/17 04:01 40 07/10/17 04:00 40 07/10/17 04:00 CPAP 40 Mechanical Ventilator 07/10/17 04:00 98 14 96 07/10/17 04:00 36.9 98 14 102/61 (75) 96 CPAP 40 Mechanical Ventilator 07/10/17 03:00 87 12 97 07/10/17 02:00 96 15 102/63 (76) 96 40 07/10/17 02:00 96 15 96 07/10/17 01:00 96 15 95 07/10/17 00:22 40 07/10/17 00:01 98 16 99/62 (74) 95 07/10/17 00:01 37.1 98 16 99/62 (74) 95 CPAP 40 Mechanical Ventilator 07/09/17 23:59 40 07/09/17 23:59 CPAP 40 Mechanical Ventilator 07/09/17 23:00 97 16 96 07/09/17 22:00 95 15 99/61 (74) 96 CPAP 40 Mechanical Ventilator 07/09/17 22:00 95 15 96 07/09/17 21:40 40 07/09/17 21:00 95 15 97 07/09/17 20:35 40 07/09/17 20:00 37.0 95 14 103/69 (80) 97 CPAP 40 Mechanical Ventilator 07/09/17 20:00 95 14 97 07/09/17 20:00 CPAP 40 Mechanical Ventilator 07/09/17 20:00 40 07/09/17 19:00 97 16 97 07/09/17 18:01 40 07/09/17 18:00 95 16 107/70 (82) 97 CPAP 40 Mechanical Ventilator 07/09/17 18:00 90 15 107/70 (85) 97 07/09/17 17:00 91 15 121/58 (73) 97 07/09/17 16:00 36.9 93 16 116/70 (85) 97 CPAP 40 Mechanical Ventilator 07/09/17 16:00 CPAP 40 Mechanical Ventilator 07/09/17 16:00 40 07/09/17 16:00 93 16 116/70 (93) 97 Physical Exam General Appearance: no apparent distress, + pertinent finding (Sedated on ventilator) Eyes: normal inspection, EOMI, sclerae normal ENT: pharynx normal, + pertinent finding (ET-tube in place) Neck: supple, no adenopathy, thyroid normal, + adenopathy present Respiratory/Chest: chest non-tender, lungs clear, normal breath sounds, no respiratory distress Cardiovascular: regular rate, rhythm, no gallop, no murmur Abdomen: normal bowel sounds, soft, + distended, + tenderness, + hepatomegaly Neurologic/Psychiatric: + pertinent finding (Sedated on ventilator, some response to voice) Skin: normal color, warm/dry, no rash Lymphatic: no adenopathy Laboratory Results Last 24 Hours Test 07/09/17 15:53 07/09/17 16:46 07/09/17 17:48 07/09/17 18:28 Bedside Glucose 106 mg/dl 105 mg/dl 119 mg/dl 124 mg/dl Test 07/09/17 20:45 07/09/17 22:51 07/10/17 00:53 07/10/17 02:35 Bedside Glucose 117 mg/dl 131 mg/dl 136 mg/dl 153 mg/dl Test 07/10/17 06:04 07/10/17 09:32 07/10/17 10:26 07/10/17 14:37 White Blood Count 34.40 K/uL Red Blood Count 2.18 M/uL Hemoglobin 7.6 g/dL Hematocrit 24.4 % Mean Corpuscular Volume 111.9 fL Mean Corpuscular Hemoglobin 34.9 pg Mean Corpuscular Hemoglobin Concent 31.1 g/dl Platelet Count 61 K/uL Neutrophils (%) (Auto) 89.7 % Lymphocytes (%) (Auto) 2.8 % Monocytes (%) (Auto) 1.9 % Eosinophils (%) (Auto) 0.5 % Basophils (%) (Auto) 0.3 % Neutrophils # (Auto) 30.84 K/uL Lymphocytes # (Auto) 0.96 K/uL Monocytes # (Auto) 0.67 K/uL Eosinophils # (Auto) 0.17 K/uL Basophils # (Auto) 0.10 K/uL RDW Standard Deviation 112.8 fL RDW Coefficient of Variation 28.3 % Immature Granulocyte % (Auto) 4.8 % Immature Granulocyte # (Auto) 1.66 K/uL Nucleated RBC Absolute Count (auto) 2.11 K/uL Nucleated Red Blood Cells % 6.1 % Toxic Granulation 1+ Toxic Vacuolation 1+ Platelet Estimate DECREASED Large Platelets 1+ Polychromasia 2+ Basophilic Stippling OCCASIONAL Anisocytosis PRESENT Macrocytosis PRESENT Pappenheimer Bodies 1+ [place] Bodies OCCASIONAL Prothrombin Time 13.9 SECONDS Prothromb Time International Ratio 1.3 Sodium Level 144 mmol/L Potassium Level 4.2 mmol/L Chloride Level 113 mmol/L Carbon Dioxide Level 20 mmol/L Anion Gap 11.0 mmol/L Blood Urea Nitrogen 61 mg/dl Creatinine 1.14 mg/dl Est Creatinine Clear Calc Drug Dose 73.3 ml/min Estimated GFR () 64.0 Estimated GFR (Non- 55.2 BUN/Creatinine Ratio 53.3 Random Glucose 133 mg/dl Lactic Acid Level 0.9 mmol/L Calcium Level 7.9 mg/dl Phosphorus Level 3.3 mg/dl Magnesium Level 1.9 mg/dl Total Bilirubin 5.7 mg/dl Aspartate Amino Transf (AST/SGOT) 68 U/L Alanine Aminotransferase (ALT/SGPT) 26 U/L Alkaline Phosphatase 198 U/L C-Reactive Protein 2.50 mg/dl Total Protein 4.7 gm/dl Albumin 2.0 gm/dl Globulin 2.7 gm/dl Albumin/Globulin Ratio 0.7 Triglycerides Level mg/dl Blood Gas Sample Site L Radial Bedside Blood Gas pH (LAB) 7.34 Bedside Blood Gas pCO2 (LAB) 36 mmHg Bedside Blood Gas pO2 (LAB) 105 mmHg Bedside Blood Gas HCO3 (LAB) 20 meq/L Bedside Blood Gas Total CO2 21 mEq/l Bedside Blood Gas Base Excess (LAB) -6.0 meq/L Bedside Blood Gas O2 Saturation 98.0 % Leonidas Test Pass Oxygen Delivery Device Ventilator Bedside FiO2 40 % Blood Gas PEEP 5 Bedside Glucose 132 mg/dl 122 mg/dl Assessment and Plan 52-year-old female critically ill with ischemic colitis versus C difficile infection, probable developing ARDS with respiratory failure,. White count has improved with addition of caspofungin, suggests possibility of disseminated fungal infection. Would give empiric 10 day course if cultures remain negative. Continue vancomycin for C difficile infection. Will follow.
[2017-07-10] MEDS ORDERED: CUSTOM CENTRAL PN 1 BAG IV SCH (16:00)
[2017-07-10] MEDS ORDERED: DEXTROSE 5% IV ONE (16:15)
[2017-07-10] MEDS ORDERED: CHLOROTHIAZIDE IV ONE (16:15)
[2017-07-11] VITALS (27 sets, daily range): BP systolic 90–124; BP diastolic 51–77; PULSE 74–91; TEMP 36.5–36.9; O2SAT 94–100
[2017-07-11] MEDS: ALBUTEROL HFA 8 GM INHALER INH SCH ×3 (02:27→11:16)
[2017-07-11] MEDS: IPRATROPIUM BROMIDE HFA INHALER INH SCH ×3 (02:27→11:16)
[2017-07-11] MEDS: METRONIDAZOLE / NSS 500 MG in PREMIXED NSS 100 ML IV SCH ×3 (04:50→20:03)
[2017-07-11] MEDS: FUROSEMIDE INJ 100 MG in DEXTROSE 5% 100ML 90 ML IV SCH ×2 (04:50→19:09)
[2017-07-11 06:16] LABS: MEAN CORPUSCULAR HGB CONC 30.7 g/dl (32-36)
[2017-07-11 06:22] LABS: HEMATOCRIT 22.8 % (37-47); RED CELL DISTRIBUTION WIDTH CV 28.8 % (11.5-14.5); WHITE BLOOD COUNT 25.21 K/uL (4.8-10.8)
[2017-07-11 06:27] LABS: INR 1.2 (0.9-1.1)
[2017-07-11 06:48] LABS: ALBUMIN 1.8 gm/dl (3.4-5.0); CALCIUM 7.9 mg/dl (8.5-10.1); CREATININE 1.09 mg/dl (0.60-1.20); POTASSIUM 3.6 mmol/L (3.5-5.1)
[2017-07-11 06:53] LABS: PLATELET COUNT 64 K/uL (130-400)
[2017-07-11 06:55] LABS: BASO % 0.1 %; BASO ABS # 0.03 K/uL (0-0.2); EOS % 0.6 %; EOS ABS # 0.16 K/uL (0-0.5); IG# 0.77 K/uL (0.00-0.02); LYMPH % 2.9 %; LYMPH ABS # 0.73 K/uL (1.2-3.4); MONO % 2.7 %; MONO ABS # 0.67 K/uL (0.11-0.59); NEUT % 90.6 %; NEUT ABS # 22.85 K/uL (1.4-6.5)
[2017-07-11 06:56] LABS: PHOSPHORUS 3.8 mg/dl (2.5-4.9); TOTAL PROTEIN 4.5 gm/dl (6.4-8.2)
[2017-07-11] MEDS: PANTOprazole INJ 40 MG in SYRINGE 0 ML IV SCH ×2 (08:29→20:04)
[2017-07-11] MEDS: INSULIN REGULAR 250 UNITS in SODIUM CHLORIDE 0.9% 250ML 250 ML IV SCH (09:00)
[2017-07-11] MEDS ORDERED: CHLOROTHIAZIDE IV SCH (10:00)
[2017-07-11] MEDS ORDERED: RASPBERRY SYRUP 5 ML UDP PO SCH (10:00)
[2017-07-11] MEDS ORDERED: DEXTROSE 5% IV SCH (10:00)
[2017-07-11] MEDS ORDERED: VANCOMYCIN HCL 250 MG/5 ML SOLN PO SCH (10:00)
[2017-07-11] MEDS: VANCOMYCIN HCL 250 MG/5 ML SOLN PO SCH ×3 (10:43→22:34)
[2017-07-11] MEDS: CASPOFUNGIN INJ 50 MG in SODIUM CHLORIDE 0.9% 250ML 250 ML IV SCH (10:45)
--- NOTE | 2017-07-11 12:14 | Gastroenterology Progress Note ---
Progress Note Date of Service: Jul 11, 2017 Subjective Pt evaluation today including: physical exam, chart review, lab review, review of studies, conversation w/ edi consultant (water control station engineer), review of inpatient medication list cc f/u alcoholic hepaitis, Cdiff HPI History from nurse, intensiivist and chart. Pt minimal nodding of head when asking questions. She nods head yes regarding abd pain. PEr nursing stools o/n but none this am. Plan for extubation today and NG feedings per intesivist. Review of Systems Respiratory: No shortness of breath Cardiac: No chest pain Medications Current Inpatient Medications Medications (Trade) Dose Ordered Sig/Razia Route Start Time Stop Time Status Last Admin Dose Admin Pantoprazole Sodium 40 mg/ Syringe 10 ml @ 5 mls/min BID IV 06/27/17 09:00 07/27/17 08:59 07/11/17 08:29 5 MLS/MIN Ondansetron HCl (Zofran Inj) 4 mg Q6H PRN IV 06/27/17 17:46 07/27/17 17:45 Hydromorphone HCl (Dilaudid Inj) 1 mg Q3HWA PRN IV 06/29/17 09:15 07/13/17 09:14 06/30/17 20:36 1 MG Albuterol/ Ipratropium (Duoneb) 3 ml Q4 PRN INH 07/01/17 05:30 07/31/17 05:29 Future Hold 07/01/17 10:06 3 ML Albuterol (Ventolin Hfa Inhaler) 4 puffs Q4R INH 07/02/17 08:00 08/01/17 07:59 07/11/17 11:16 4 PUFFS Ipratropium [place] (Atrovent Hfa Inhaler) 4 puffs Q4R INH 07/02/17 08:00 08/01/17 07:59 07/11/17 11:16 4 PUFFS Artificial Tears (Lacri-Lube Oph Oint) 1 appln Q2H PRN OPB 07/02/17 21:45 08/01/17 21:44 Heparin Sodium (Porcine) (Heparin 10 Unit/ ml 5 ml Flush) 5 ml PRN PRN FLUSH 07/04/17 20:45 08/03/17 20:44 Insulin Human Regular 250 units/ Sodium Chloride 252.5 ml @ 0 mls/hr Q24H IV 07/08/17 09:00 07/11/17 16:00 07/10/17 11:26 0.9 MLS/HR Caspofungin 50 mg/ Sodium Chloride 260 ml @ 250 mls/hr Q24H IV 07/09/17 11:00 07/11/17 23:59 07/11/17 10:45 250 MLS/HR Metronidazole 500 mg/Prmx 100 ml @ 100 mls/hr Q8H IV 07/09/17 12:00 07/23/17 11:59 07/11/17 04:50 100 MLS/HR Furosemide 100 mg/ Dextrose 100 ml @ 15 mls/hr Q6H40M IV 07/09/17 11:15 08/08/17 11:14 07/11/17 04:50 10 MLS/HR Miscellaneous Information (Pharmacy Tpn/ Ppn Consult Active) 1 ea UD PRN N/A 07/09/17 13:45 08/08/17 13:44 Dextrose 1,000 ml @ 0 mls/hr Q0M PRN IV 07/09/17 13:47 08/08/17 13:46 Glucose (Glucose 40% Gel) 15-30 GRAMS 15 GRAMS... UD PRN PO 07/09/17 14:45 08/08/17 14:44 Glucose (Glucose Chew Tab) 4-8 Tablets 4 Tabl... UD PRN PO 07/09/17 14:45 08/08/17 14:44 Dextrose (Dextrose 50% 50ML Syringe) 25-50ML OF 50% DW IV FOR... UD PRN IV 07/09/17 14:45 08/08/17 14:44 07/09/17 14:20 25 ML Glucagon (Glucagon Inj) 1 mg UD PRN SQ 07/09/17 14:45 08/08/17 14:44 Nutrition (Parenteral) 0 ml @ 0 mls/hr TODAY IV 07/10/17 16:00 07/11/17 15:59 07/10/17 15:46 0 MLS/HR Vancomycin HCl (Vancomycin Oral Soln) 500 mg Q6H PO 07/11/17 10:00 07/21/17 09:59 07/11/17 10:43 500 MG Miscellaneous (Stop Order) 1 ea TODAY@1600 ONCE N/A 07/11/17 16:00 07/11/17 16:01 Nutrition (Parenteral) 0 ml @ 0 mls/hr TODAY@1600 IV 07/11/17 16:00 07/12/17 15:59 Caspofungin 50 mg/ Sodium Chloride 110 ml @ 110 mls/hr Q24H IV 07/12/17 11:00 08/08/17 10:59 Insulin Aspart (novoLOG ASPART) SLIDING SCALE Q4 SC 07/11/17 16:00 08/10/17 15:59 Objective Vital Signs Date Time Temp Pulse Resp B/P (MAP) Pulse Ox O2 Delivery O2 Flow Rate FiO2 07/11/17 11:16 30 07/11/17 10:00 30 07/11/17 10:00 89 17 123/65 (84) 95 CPAP 40 Mechanical Ventilator 07/11/17 08:00 40 07/11/17 08:00 CPAP 40 Mechanical Ventilator 07/11/17 08:00 36.5 89 16 106/74 (85) 97 CPAP 40 07/11/17 07:42 40 07/11/17 06:01 82 14 101/57 (72) 99 CPAP 40 07/11/17 06:00 79 14 97 CPAP 40 07/11/17 05:16 81 14 91/54 (66) 99 CPAP 40 07/11/17 05:01 75 14 91/54 (66) 100 CPAP 40 07/11/17 05:00 74 14 100 CPAP 40 07/11/17 04:01 86 14 108/72 (84) 99 CPAP 40 07/11/17 04:00 36.9 86 14 99 CPAP 40 07/11/17 04:00 99 CPAP 40 Mechanical Ventilator 07/11/17 04:00 40 07/11/17 03:01 89 14 118/77 (91) 98 CPAP 40 07/11/17 03:00 91 14 98 CPAP 40 07/11/17 02:27 40 07/11/17 02:01 78 14 116/55 (75) 97 CPAP 40 07/11/17 02:00 76 14 97 CPAP 40 07/11/17 01:01 91 14 110/70 (83) 97 CPAP 40 07/11/17 01:00 91 14 98 CPAP 40 07/11/17 00:01 91 14 124/67 (86) 98 CPAP 40 07/11/17 00:00 97 CPAP 15.0 40 Mechanical Ventilator 07/11/17 00:00 40 07/11/17 00:00 36.7 90 14 98 CPAP 40 07/10/17 23:31 78 11 97 Mechanical Ventilator 40 07/10/17 22:25 40 07/10/17 22:01 93 15 105/76 (86) 98 CPAP 40 Mechanical Ventilator 07/10/17 20:01 36.9 92 14 117/77 (90) 100 CPAP 40 Mechanical Ventilator 07/10/17 20:00 40 07/10/17 20:00 98 CPAP 40 Mechanical Ventilator 07/10/17 19:25 40 07/10/17 19:01 91 15 108/73 (85) 99 07/10/17 18:09 40 07/10/17 18:01 94 23 105/66 (79) 98 CPAP 40 Mechanical Ventilator 07/10/17 16:01 88 105/68 (80) 97 07/10/17 16:00 98 CPAP 40 Mechanical Ventilator 07/10/17 16:00 40 07/10/17 15:11 40 07/10/17 15:01 36.8 91 16 113/69 (84) 98 CPAP 40 Mechanical Ventilator 07/10/17 14:01 40 07/10/17 14:00 93 15 111/72 (85) 98 CPAP 40 Mechanical Ventilator Physical Exam General Appearance: WD/WN, no apparent distress Respiratory/Chest: + crackles, + pertinent finding (on vent) Cardiovascular: regular rate, rhythm, no edema Abdomen: normal bowel sounds, non tender (no guarding nor rebound), soft, no organomegaly, no pulsatile mass Neurologic/Psych: + pertinent finding (more responsive today) Skin: normal color Laboratory Results Last 24 Hours Test 07/10/17 14:37 07/10/17 18:28 07/10/17 22:21 07/11/17 02:33 Bedside Glucose 122 mg/dl 130 mg/dl 131 mg/dl 129 mg/dl Test 07/11/17 05:45 07/11/17 06:35 07/11/17 09:58 White Blood Count 25.21 K/uL Red Blood Count 2.00 M/uL Hemoglobin 7.0 g/dL Hematocrit 22.8 % Mean Corpuscular Volume 114.0 fL Mean Corpuscular Hemoglobin 35.0 pg Mean Corpuscular Hemoglobin Concent 30.7 g/dl Platelet Count 64 K/uL Neutrophils (%) (Auto) 90.6 % Lymphocytes (%) (Auto) 2.9 % Monocytes (%) (Auto) 2.7 % Eosinophils (%) (Auto) 0.6 % Basophils (%) (Auto) 0.1 % Neutrophils # (Auto) 22.85 K/uL Lymphocytes # (Auto) 0.73 K/uL Monocytes # (Auto) 0.67 K/uL Eosinophils # (Auto) 0.16 K/uL Basophils # (Auto) 0.03 K/uL RDW Standard Deviation 116.0 fL RDW Coefficient of Variation 28.8 % Immature Granulocyte % (Auto) 3.1 % Immature Granulocyte # (Auto) 0.77 K/uL Nucleated RBC Absolute Count (auto) 0.90 K/uL Nucleated Red Blood Cells % 3.6 % Toxic Granulation 1+ Toxic Vacuolation 1+ Platelet Estimate DECREASED Large Platelets 1+ Polychromasia 1+ Basophilic Stippling OCCASIONAL Anisocytosis PRESENT Macrocytosis PRESENT Pappenheimer Bodies OCCASIONAL Prothrombin Time 12.3 SECONDS Prothromb Time International Ratio 1.2 Sodium Level 144 mmol/L Potassium Level 3.6 mmol/L Chloride Level 113 mmol/L Carbon Dioxide Level 20 mmol/L Anion Gap 11.0 mmol/L Blood Urea Nitrogen 71 mg/dl Creatinine 1.09 mg/dl Est Creatinine Clear Calc Drug Dose 75.9 ml/min Estimated GFR () 67.6 Estimated GFR (Non- 58.3 BUN/Creatinine Ratio 64.7 Random Glucose 122 mg/dl Calcium Level 7.9 mg/dl Phosphorus Level 3.8 mg/dl Magnesium Level 1.8 mg/dl Total Bilirubin 3.8 mg/dl Aspartate Amino Transf (AST/SGOT) 54 U/L Alanine Aminotransferase (ALT/SGPT) 26 U/L Alkaline Phosphatase 177 U/L Total Protein 4.5 gm/dl Albumin 1.8 gm/dl Globulin 2.7 gm/dl Albumin/Globulin Ratio 0.7 Triglycerides Level 135 mg/dl Bedside Glucose 122 mg/dl Bedside Venous pH 7.30 Bedside Venous pCO2 41 mmHg Bedside Venous pO2 < 32 mmHg Bedside Venous HCO3 20 meq/L Bedside Venous Blood Total CO2 22 mEq/l Bedside Venous Blood O2 Saturation 51.0 % Bedside Venous Blood Base Excess -6.0 meq/L Bedside FiO2 40 % Assessment and Plan alcoholic liver disease--LFTS trending down and INR stable to no acute liver decompensation mental status changes---ammonia was normal Elevated WBC--improved ascites--minimal on f/u CT 07/06/17 so doubt has SBP peripancreatic stranding on CT--could have an element of pancreatitis but this is not major issue and should continue tube feeds. Will repeat lipase in am. hepatomegaly--presumably from ETOH elevated LFTS--from ETOH elev INR from ETOH Cdiff colitis--Cdiff 07/10 neg. nutrition--on TPN at present Thickened colon on admit CT--most likely from Cdiff. 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 Also if ischemic bowel were original problem the repeat CT 07/06 would have shown more significant bowel findings (other than sigmoid diverticulosis, no other bowel findings mentioned on CT). Continue supportive care. Guarded prognosis.
[2017-07-11] MEDS ORDERED: PEPTAMEN 1.5 CAL 1000ML BAG NG PRN (12:30)
--- NOTE | 2017-07-11 12:53 | DIAGNOSTIC IMAGING REPORT ---
[facility]UB CLINICAL HISTORY: Nasogastric tube placement COMPARISON STUDY: 05/07/2017 FINDINGS: A single portable view of the upper abdomen is provided for interpretation. There is a nasogastric tube present within the stomach. IMPRESSION: The recently placed nasogastric tube is positioned within the stomach Electronically signed by: Ramon Dominique M.D. 07/11/2017 12:52 PM Dictated Date/Time: 07/11/2017 12:51 PM
[2017-07-11] MEDS: INSULIN ASPART 100 UNITS/ML 3 ML PEN SC SCH ×2 (15:53→20:00)
[2017-07-11] MEDS ORDERED: CUSTOM CENTRAL PN 1 BAG IV SCH (16:00)
[2017-07-11] MEDS ORDERED: [UNRECOGNIZED DRUG - REMARK] ONE (16:00)
[2017-07-11] MEDS ORDERED: NURSING VERBAL MED ORDER ONE (18:30)
--- NOTE | 2017-07-11 18:49 | Critical Care Progress Note ---
Critical Care Progress Note Date of Service Jul 11, 2017. Attending Dr. Gonzalez Subjective No events overnight, the patient tolerated the CPAP trial, the patient underwent a bronchoscopy yesterday with removal of secretions from the lower lobes and mainly right lower and right middle lobes. Review of system was difficult to obtain however the patient denies any pain, shortness of breath, no vomiting was reported. Objective General: resting in bed, responding to verbal stimuli SECURITIES COUNSELOR: RASS score of -1 (arouses to vocal stimuli), pt also tracking, following commands and moving extremities/head HEENT: Scleral icterus, ET tube and OG tube Lungs: coarse breath sounds, scattered rhonchi, and wheezing CVS: RRR, normal S1, S2, no murmurs Skin: jaundiced Abdomen: +BS (hypoactive); less distended, TTP diffusely especially in lower abdomen, severe hepatomegaly Extremities: 4+ pedal edema and 4+ UE edema; (serous oozing of UEs and lower abdomen with friable and erythematous skin) Physical exam on 07/11/2017 revealed stable vital signs, O2 saturation 95%, on CPAP of 5 and pressure support of 5, opening her eyes and following commands, overall lethargic and fatigued, bilateral anasarca, lungs with minimal distant breath sounds, neurologically difficult to assess. Her laboratory as well as x- ray was reviewed. Lungs has been better inflated and the NG tube was below the diaphragm. All the data reviewed personally. Assessment & Plan 52y/oF admitted with severe sepsis secondary to likely C.diff colitis. NOW with acute lung injury on mechanical ventilation (CPAP PSV: 5, Peep 5, FiO2 40%). Mental status continues to improve and consistent with moderate-severe encephalopathy likely in the setting of sepsis vs. hepatic encephalopathy vs chronic alcohol effects based on imaging. Last ammonia normal at 10. LFTs continues to be elevated. Persistent liver failure in the setting of alcoholic cirrhosis. Acidosis improved. Off pressors and sedation since 07/05. PLAN: SECURITIES COUNSELOR: This AM RASS score -1. Responds to verbal stimuli. Tracking with eyes, follows commands and moving head and extremities. MS changes consistent with moderate-severe encephalopathy likely in the setting of sepsis vs. hepatic encephalopathy vs chronic alcohol effects based on imaging. MRI abnormal on 07/08 with multiple symmetric midline legions consistent with metabolic encephalopathy vs. chronic alcohol b use CT 07/06 no acute IC pathology EEG 07/06 no epileptiform activity Neurology consulted - subclinical seizure unlikely, mental status changes likely from metabolic encephalopathy vs. alcohol related; at high risk for seizures (will monitor) Off fentanyl since 07/05 Off Versed since 07/04 Dced BIS monitor and Nimbex at 1200 on 07/03 CVS: BP normalized. 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 No intervention at this time. SMA/LISBET patent. Hypervolemic +38L PULM: Acute lung injury. Bronchoscopy performed today to clear bronchial secretions On CPAP: On PSV 5, Peep 5, FiO2 40% ABG this AM: PH 7.34 PCO2 36, O2 105; HCO3 20, O2 sat 98% CXR 07/09: no pneumothorax, cardiomegaly with volume overload, mild pulm edema, small layering pleural effusion Pulm Toilet: alubterol 4 puffs Q4H; Atrovent 4 puffs Q4H Dced Methylpred 40mg Q12H (given WBC elevation to ensure not masking worsening infection) on 07/09 RENAL/METABOLIC: renal function at baseline Cr ~ 1; Cr today 1.1 with worsening BUN of 61 in the setting of Lasix gtt. Improving urine output 400-500cc/shift Volume overloaded by +38L Increased Lasix drip to 15mg/hr and dced albumin given worsening volume status this AM ID: Sepsis 2/2 C. diff vs possible PNA Abdominal CT 07/06: small pleural effusion and dense bibasilar consolidation; diffuse ground glass; diffuse anasarca body wall increased from /; small volume of amniopelvic ascites increased from 06/29; hepatomegaly with severe hepatic steatosis; mild peripancreatic stranding/fluid. CXR 07/09: no pneumothorax, cardiomegaly with volume overload, mild pulm edema, small layering pleural effusion procal 1.67 on 07/06 Bronchoscopy sample sent for culture this AM Blood culture from 07/01 no growth Fungal gram stain and culture - no yeast or fungus Repeat sputum gram stain and culture - marisol albicans C.diff Abx regimen: Continue Vanc PO 500mg day 11; Flagyl 500mg Q8H IV day 9 Continue caspofungin 50mg Q4H IV day 2 Received Aztreonam, Linezolid, and Levofloxacin x 3 days Received Vanc TN x 4 days Received Cefepime x 5 days Received IV vanc x 3 days ENDO: On Insulin gtt 0.9u/h; blood sugars in 90s-150s range HEME: Anemia worsening this AM H/H 7.6/24.4 from 8/25.[address] mildly improved 61 from 57 No evidence of bleeding Heparin PF4 Ab - neg Dced heparin for concern of HIT 2 Monitor CBC Consider transfusing once Hgb < 7 Electrolytes: Low Ca 7.9 (corrected 9 given albumin of 2), Mag 1.9 and Phos 3.3) Nutrition: Continue TPN given significant bowel edema inhibiting absorption of nutrition orally Added 12u insulin to TPN Thiamine 500mg Folic Acid GI: Continue TPN Persistent liver failure; LFT mildly improved this AM Tbili 5.7; AST 68, Alk phos 198 MELD score 20 (19.6% mortality risk); Child-Burns score of 11 (class C) Continue recurrent C.diff Colitis treatment: Vanc PO day 11; Flagyl IV day 9 Consulted surgery: high mortality risk for total colectomy at this time GI prophylaxis: Protonix 40mg IV BID IV access: Placed R IJ central venous cath 07/09 Placed R arm PICC line 07/05 Removed L femoral tri-lumen central venous cath and kyle 07/05 DVT Prophylaxis: SCDs PROGNOSIS: poor given high mortality in the setting of severe sepsis and multi- organ failure and poor baseline healthy Palliative care consulted Family Meeting: maintain current care plan, do not escalate care, would like to avoid surgery at this point; will reassess if condition worsens CCT: 45 minutes independent of procedures Thank you for including us in the care of this patient. Please refer to Dr. Gonzalez's addendum for further recommendations. Attending addendum, The patient was seen, examined independently, discussed with the staff on rounds and details, agree with assessment and plan of my colleague . The patient has no events overnight, she tolerated the CPAP, but she remains very lethargic and edematous. Her edema has been an issue. The patient continued to be fluid overloaded approximately over 30 kg. The patient open her eyes but barely follow commands. Review of system was not obtainable. The patient was noted to be secretional by the nursing staff. Her physical exam revealed a middle-aged female chronically ill, intubated, opening her eyes and following simple commands, was able to squeeze my fingers on the right hand, unable to keep her arms and hold above gravity, S1-S2 regular rate and rhythm, distant breath sounds bilaterally, abdomen is benign, anasarca. Her labs also were reviewed, chest x-ray also was reviewed from previous. Impression: 1. Acute respiratory failure requiring prolonged intubation. 2. Fluid overload. 3. Sepsis secondary to pneumonia, C. difficile colitis. 4. Currently with C. difficile colitis only. 5. History of liver cirrhosis. 6. Malnutrition. 7. Active smoker. #8 history of alcoholism. 9. Borderline AK I. 10. History of GI bleed earlier but not now. Plan: 1. I will continue with Lasix drip. Increase the dose. To 15 mg/h. 2. I will continue with Vanco p.o. and caspofungin IV in addition to stopping Flagyl was appropriate. 3. Bronchoscopy was done with thick secretions removed from the airways. Edema affecting the right lower lobe with extrinsic compression. Concerning for possible pleural effusion as well. 4. Appreciate nutrition and pharmacy input in regard of setting up the TPN. 5. Glucose control. 6. DVT prophylaxis. 7. Continue to watch for leukocytes trend. 8. Off steroids. 9. Her volume of distribution remains elevated. 10. We will place the patient on AC mode and change her back again to CPAP once she is more awake. 11. Case discussed with the staff on rounds and details. Critical care time spent with the patient was 45 minutes excluding procedure time. Assessment and plan on July 11, 2017 as follows: 1. ARDS, resolved. 2. GI bleeding, stable. 3. Alcoholic liver cirrhosis, stable. 4. Anasarca with fluid overload. 5. Elevated BUN, in the face of TPN and steroids been used. 6. Active smoker prior to this admission and possible COPD. 7. C. difficile colitis. Septic shock, resolved. Plan: 1. I would proceed with extubation. 2. Ultrasound was done at the bedside without significant evidence of pleural effusion. 3. Change the OG tube to NG tube prior to extubation. 4. Trickle tube feeding and continue TPN until the patient is at goal. 5. Appreciate nutrition consult and GI consult. Discussed with both and details. 6. Continue Lasix drip and give additional dose of Diuril. 7. We will continue to follow the BUN/creatinine and the labs. 8. DVT and GI prophylaxis. 9. We will continue with Vanco enterally, recommended by GI to taper over a period of 4 weeks, I will obtain a repeat C. difficile antigen by PCR for 2 more readings prior to reverse contact isolation. 10. Case discussed with the staff on rounds and details. Critical care time spent with the patient was 45 minutes. Consults & Procedures Consultants: GI: Dr Joseph Vascular: Dr Baron General Surgery: Dr. Choe IV team for PICC line Procedures: 07/01/17: left femoral TLC 07/01/17: left femoral a-line 07/01/17: intubation 07/09/17: R IJ placement Data Medications: Current Inpatient Medications Medications (Trade) Dose Ordered Sig/Razia Route Start Time Stop Time Status Last Admin Dose Admin Pantoprazole Sodium 40 mg/ Syringe 10 ml @ 5 mls/min BID IV 06/27/17 09:00 07/27/17 08:59 07/11/17 08:29 5 MLS/MIN Ondansetron HCl (Zofran Inj) 4 mg Q6H PRN IV 06/27/17 17:46 07/27/17 17:45 Hydromorphone HCl (Dilaudid Inj) 1 mg Q3HWA PRN IV 06/29/17 09:15 07/13/17 09:14 06/30/17 20:36 1 MG Albuterol/ Ipratropium (Duoneb) 3 ml Q4 PRN INH 07/01/17 05:30 07/31/17 05:29 Future Hold 07/01/17 10:06 3 ML Artificial Tears (Lacri-Lube Oph Oint) 1 appln Q2H PRN OPB 07/02/17 21:45 08/01/17 21:44 Heparin Sodium (Porcine) (Heparin 10 Unit/ ml 5 ml Flush) 5 ml PRN PRN FLUSH 07/04/17 20:45 08/03/17 20:44 Caspofungin 50 mg/ Sodium Chloride 260 ml @ 250 mls/hr Q24H IV 07/09/17 11:00 07/11/17 23:59 07/11/17 10:45 250 MLS/HR Metronidazole 500 mg/Prmx 100 ml @ 100 mls/hr Q8H IV 07/09/17 12:00 07/23/17 11:59 07/11/17 12:50 100 MLS/HR Furosemide 100 mg/ Dextrose 100 ml @ 15 mls/hr Q6H40M IV 07/09/17 11:15 08/08/17 11:14 07/11/17 04:50 10 MLS/HR Miscellaneous Information (Pharmacy Tpn/ Ppn Consult Active) 1 ea UD PRN N/A 07/09/17 13:45 08/08/17 13:44 Dextrose 1,000 ml @ 0 mls/hr Q0M PRN IV 07/09/17 13:47 08/08/17 13:46 Glucose (Glucose 40% Gel) 15-30 GRAMS 15 GRAMS... UD PRN PO 07/09/17 14:45 08/08/17 14:44 Glucose (Glucose Chew Tab) 4-8 Tablets 4 Tabl... UD PRN PO 07/09/17 14:45 08/08/17 14:44 Dextrose (Dextrose 50% 50ML Syringe) 25-50ML OF 50% DW IV FOR... UD PRN IV 07/09/17 14:45 08/08/17 14:44 07/09/17 14:20 25 ML Glucagon (Glucagon Inj) 1 mg UD PRN SQ 07/09/17 14:45 08/08/17 14:44 Vancomycin HCl (Vancomycin Oral Soln) 500 mg Q6H PO 07/11/17 10:00 07/12/17 10:01 07/11/17 15:29 500 MG Nutrition (Parenteral) 0 ml @ 0 mls/hr TODAY@1600 IV 07/11/17 16:00 07/12/17 15:59 07/11/17 15:29 0 MLS/HR Caspofungin 50 mg/ Sodium Chloride 110 ml @ 110 mls/hr Q24H IV 07/12/17 11:00 08/08/17 10:59 Insulin Aspart (novoLOG ASPART) SLIDING SCALE Q4 SC 07/11/17 16:00 08/10/17 15:59 Enteral Nutritional Formula (Peptamen 1.5) 1,000 ml UD PRN NG 07/11/17 12:30 08/10/17 12:29 07/11/17 15:30 1,000 ML Vancomycin HCl (Vancomycin Oral Soln) 500 mg Q6H PO 07/12/17 16:00 07/22/17 15:59 Albuterol/ Ipratropium (Duoneb) 3 ml QIDR INH 07/11/17 20:00 08/10/17 19:59 I & O: 24-Hour Column 07/12/17 07:59 Intake Total 1235 ml Output Total 1150 ml Balance 85 ml Vital Signs: Date Time Temp Pulse Resp B/P (MAP) Pulse Ox O2 Delivery O2 Flow Rate FiO2 07/11/17 18:00 85 20 111/55 (73) 96 Nasal Cannula 4.0 07/11/17 16:00 36.8 86 17 99/58 (72) 94 Mask 12.0 50 07/11/17 16:00 Mask 12.0 50 07/11/17 14:00 83 15 90/68 (75) 98 Mask 12.0 50 07/11/17 12:00 36.6 87 16 112/70 (84) 95 CPAP 40 Mechanical Ventilator 07/11/17 12:00 40 07/11/17 12:00 CPAP 40 Mechanical Ventilator 07/11/17 11:16 30 07/11/17 10:00 30 07/11/17 10:00 89 17 123/65 (84) 95 CPAP 40 Mechanical Ventilator 07/11/17 08:00 40 07/11/17 08:00 CPAP 40 07/11/17 08:00 CPAP 40 Mechanical Ventilator 07/11/17 08:00 36.5 89 16 106/74 (85) 97 CPAP 40 07/11/17 07:42 40 07/11/17 06:01 82 14 101/57 (72) 99 CPAP 40 07/11/17 06:00 79 14 97 CPAP 40 07/11/17 05:16 81 14 91/54 (66) 99 CPAP 40 07/11/17 05:01 75 14 91/54 (66) 100 CPAP 40 07/11/17 05:00 74 14 100 CPAP 40 07/11/17 04:01 86 14 108/72 (84) 99 CPAP 40 07/11/17 04:00 36.9 86 14 99 CPAP 40 07/11/17 04:00 99 CPAP 40 Mechanical Ventilator 07/11/17 04:00 40 07/11/17 03:01 89 14 118/77 (91) 98 CPAP 40 07/11/17 03:00 91 14 98 CPAP 40 07/11/17 02:27 40 07/11/17 02:01 78 14 116/55 (75) 97 CPAP 40 07/11/17 02:00 76 14 97 CPAP 40 07/11/17 01:01 91 14 110/70 (83) 97 CPAP 40 07/11/17 01:00 91 14 98 CPAP 40 07/11/17 00:01 91 14 124/67 (86) 98 CPAP 40 07/11/17 00:00 97 CPAP 15.0 40 Mechanical Ventilator 07/11/17 00:00 40 07/11/17 00:00 36.7 90 14 98 CPAP 40 07/10/17 23:31 78 11 97 Mechanical Ventilator 40 07/10/17 22:25 40 07/10/17 22:01 93 15 105/76 (86) 98 CPAP 40 Mechanical Ventilator 07/10/17 20:01 36.9 92 14 117/77 (90) 100 CPAP 40 Mechanical Ventilator 07/10/17 20:00 40 07/10/17 20:00 98 CPAP 40 Mechanical Ventilator 07/10/17 19:25 40 07/10/17 19:01 91 15 108/73 (85) 99 Laboratory Results: Last 24 Hours Test 07/10/17 22:21 07/11/17 02:33 07/11/17 05:45 07/11/17 06:35 Bedside Glucose 131 mg/dl 129 mg/dl 122 mg/dl White Blood Count 25.21 K/uL Red Blood Count 2.00 M/uL Hemoglobin 7.0 g/dL Hematocrit 22.8 % Mean Corpuscular Volume 114.0 fL Mean Corpuscular Hemoglobin 35.0 pg Mean Corpuscular Hemoglobin Concent 30.7 g/dl Platelet Count 64 K/uL Neutrophils (%) (Auto) 90.6 % Lymphocytes (%) (Auto) 2.9 % Monocytes (%) (Auto) 2.7 % Eosinophils (%) (Auto) 0.6 % Basophils (%) (Auto) 0.1 % Neutrophils # (Auto) 22.85 K/uL Lymphocytes # (Auto) 0.73 K/uL Monocytes # (Auto) 0.67 K/uL Eosinophils # (Auto) 0.16 K/uL Basophils # (Auto) 0.03 K/uL RDW Standard Deviation 116.0 fL RDW Coefficient of Variation 28.8 % Immature Granulocyte % (Auto) 3.1 % Immature Granulocyte # (Auto) 0.77 K/uL Nucleated RBC Absolute Count (auto) 0.90 K/uL Nucleated Red Blood Cells % 3.6 % Toxic Granulation 1+ Toxic Vacuolation 1+ Platelet Estimate DECREASED Large Platelets 1+ Polychromasia 1+ Basophilic Stippling OCCASIONAL Anisocytosis PRESENT Macrocytosis PRESENT Pappenheimer Bodies OCCASIONAL Prothrombin Time 12.3 SECONDS Prothromb Time International Ratio 1.2 Sodium Level 144 mmol/L Potassium Level 3.6 mmol/L Chloride Level 113 mmol/L Carbon Dioxide Level 20 mmol/L Anion Gap 11.0 mmol/L Blood Urea Nitrogen 71 mg/dl Creatinine 1.09 mg/dl Est Creatinine Clear Calc Drug Dose 75.9 ml/min Estimated GFR () 67.6 Estimated GFR (Non- 58.3 BUN/Creatinine Ratio 64.7 Random Glucose 122 mg/dl Calcium Level 7.9 mg/dl Phosphorus Level 3.8 mg/dl Magnesium Level 1.8 mg/dl Total Bilirubin 3.8 mg/dl Aspartate Amino Transf (AST/SGOT) 54 U/L Alanine Aminotransferase (ALT/SGPT) 26 U/L Alkaline Phosphatase 177 U/L Total Protein 4.5 gm/dl Albumin 1.8 gm/dl Globulin 2.7 gm/dl Albumin/Globulin Ratio 0.7 Triglycerides Level 135 mg/dl Test 07/11/17 09:58 07/11/17 10:56 Bedside Venous pH 7.30 Bedside Venous pCO2 41 mmHg Bedside Venous pO2 < 32 mmHg Bedside Venous HCO3 20 meq/L Bedside Venous Blood Total CO2 22 mEq/l Bedside Venous Blood O2 Saturation 51.0 % Bedside Venous Blood Base Excess -6.0 meq/L Bedside FiO2 40 % Bedside Glucose 128 mg/dl
--- NOTE | 2017-07-11 19:36 | Infectious Disease Progress Nt ---
Progress Note Date of Service Jul 11, 2017. Subjective Pt evaluation today including: physical exam, chart review, lab review, review of studies, conversation w/ student union consultant, review of inpatient medication list Patient extubated, no distress apparent currently. Does not respond to questions. All Other Systems: Reviewed and Negative Medications Current Inpatient Medications Medications (Trade) Dose Ordered Sig/Razia Route Start Time Stop Time Status Last Admin Dose Admin Pantoprazole Sodium 40 mg/ Syringe 10 ml @ 5 mls/min BID IV 06/27/17 09:00 07/27/17 08:59 07/11/17 08:29 5 MLS/MIN Ondansetron HCl (Zofran Inj) 4 mg Q6H PRN IV 06/27/17 17:46 07/27/17 17:45 Hydromorphone HCl (Dilaudid Inj) 1 mg Q3HWA PRN IV 06/29/17 09:15 07/13/17 09:14 06/30/17 20:36 1 MG Albuterol/ Ipratropium (Duoneb) 3 ml Q4 PRN INH 07/01/17 05:30 07/31/17 05:29 Future Hold 07/01/17 10:06 3 ML Artificial Tears (Lacri-Lube Oph Oint) 1 appln Q2H PRN OPB 07/02/17 21:45 08/01/17 21:44 Heparin Sodium (Porcine) (Heparin 10 Unit/ ml 5 ml Flush) 5 ml PRN PRN FLUSH 07/04/17 20:45 08/03/17 20:44 Caspofungin 50 mg/ Sodium Chloride 260 ml @ 250 mls/hr Q24H IV 07/09/17 11:00 07/11/17 23:59 07/11/17 10:45 250 MLS/HR Metronidazole 500 mg/Prmx 100 ml @ 100 mls/hr Q8H IV 07/09/17 12:00 07/23/17 11:59 07/11/17 12:50 100 MLS/HR Furosemide 100 mg/ Dextrose 100 ml @ 15 mls/hr Q6H40M IV 07/09/17 11:15 08/08/17 11:14 07/11/17 19:09 15 MLS/HR Miscellaneous Information (Pharmacy Tpn/ Ppn Consult Active) 1 ea UD PRN N/A 07/09/17 13:45 08/08/17 13:44 Dextrose 1,000 ml @ 0 mls/hr Q0M PRN IV 07/09/17 13:47 08/08/17 13:46 Glucose (Glucose 40% Gel) 15-30 GRAMS 15 GRAMS... UD PRN PO 07/09/17 14:45 08/08/17 14:44 Glucose (Glucose Chew Tab) 4-8 Tablets 4 Tabl... UD PRN PO 07/09/17 14:45 08/08/17 14:44 Dextrose (Dextrose 50% 50ML Syringe) 25-50ML OF 50% DW IV FOR... UD PRN IV 07/09/17 14:45 08/08/17 14:44 07/09/17 14:20 25 ML Glucagon (Glucagon Inj) 1 mg UD PRN SQ 07/09/17 14:45 08/08/17 14:44 Vancomycin HCl (Vancomycin Oral Soln) 500 mg Q6H PO 07/11/17 10:00 07/12/17 10:01 07/11/17 15:29 500 MG Nutrition (Parenteral) 0 ml @ 0 mls/hr TODAY@1600 IV 07/11/17 16:00 07/12/17 15:59 07/11/17 15:29 0 MLS/HR Caspofungin 50 mg/ Sodium Chloride 110 ml @ 110 mls/hr Q24H IV 07/12/17 11:00 08/08/17 10:59 Insulin Aspart (novoLOG ASPART) SLIDING SCALE Q4 SC 07/11/17 16:00 08/10/17 15:59 Enteral Nutritional Formula (Peptamen 1.5) 1,000 ml UD PRN NG 07/11/17 12:30 08/10/17 12:29 07/11/17 15:30 1,000 ML Vancomycin HCl (Vancomycin Oral Soln) 500 mg Q6H PO 07/12/17 16:00 07/22/17 15:59 Albuterol/ Ipratropium (Duoneb) 3 ml QIDR INH 07/11/17 20:00 08/10/17 19:59 Objective Vital Signs Date Time Temp Pulse Resp B/P (MAP) Pulse Ox O2 Delivery O2 Flow Rate FiO2 07/11/17 18:00 85 20 111/55 (73) 96 Nasal Cannula 4.0 3/21/18 16:00 36.8 86 17 99/58 (72) 94 Mask 12.0 50 07/11/17 16:00 Mask 12.0 50 07/11/17 14:00 83 15 90/68 (75) 98 Mask 12.0 50 07/11/17 12:00 36.6 87 16 112/70 (84) 95 CPAP 40 Mechanical Ventilator 07/11/17 12:00 40 07/11/17 12:00 CPAP 40 Mechanical Ventilator 07/11/17 11:16 30 07/11/17 10:00 30 07/11/17 10:00 89 17 123/65 (84) 95 CPAP 40 Mechanical Ventilator 07/11/17 08:00 40 07/11/17 08:00 CPAP 40 07/11/17 08:00 CPAP 40 Mechanical Ventilator 07/11/17 08:00 36.5 89 16 106/74 (85) 97 CPAP 40 07/11/17 07:42 40 07/11/17 06:01 82 14 101/57 (72) 99 CPAP 40 07/11/17 06:00 79 14 97 CPAP 40 07/11/17 05:16 81 14 91/54 (66) 99 CPAP 40 07/11/17 05:01 75 14 91/54 (66) 100 CPAP 40 07/11/17 05:00 74 14 100 CPAP 40 07/11/17 04:01 86 14 108/72 (84) 99 CPAP 40 07/11/17 04:00 36.9 86 14 99 CPAP 40 07/11/17 04:00 99 CPAP 40 Mechanical Ventilator 07/11/17 04:00 40 07/11/17 03:01 89 14 118/77 (91) 98 CPAP 40 07/11/17 03:00 91 14 98 CPAP 40 07/11/17 02:27 40 07/11/17 02:01 78 14 116/55 (75) 97 CPAP 40 07/11/17 02:00 76 14 97 CPAP 40 07/11/17 01:01 91 14 110/70 (83) 97 CPAP 40 07/11/17 01:00 91 14 98 CPAP 40 07/11/17 00:01 91 14 124/67 (86) 98 CPAP 40 07/11/17 00:00 97 CPAP 15.0 40 Mechanical Ventilator 07/11/17 00:00 40 07/11/17 00:00 36.7 90 14 98 CPAP 40 07/10/17 23:31 78 11 97 Mechanical Ventilator 40 07/10/17 22:25 40 07/10/17 22:01 93 15 105/76 (86) 98 CPAP 40 Mechanical Ventilator 07/10/17 20:01 36.9 92 14 117/77 (90) 100 CPAP 40 Mechanical Ventilator 07/10/17 20:00 40 07/10/17 20:00 98 CPAP 40 Mechanical Ventilator Physical Exam General Appearance: no apparent distress, + pertinent finding (sedated) Eyes: normal inspection, EOMI, sclerae normal ENT: pharynx normal, + pertinent finding (ET tube in place) Neck: supple, no adenopathy, thyroid normal, trachea midline Respiratory/Chest: chest non-tender, no respiratory distress, + rales, + wheezing Cardiovascular: regular rate, rhythm, no gallop, no murmur Abdomen: normal bowel sounds, + distended, + tenderness, + hepatomegaly Extremities: non-tender, no calf tenderness Neurologic/Psychiatric: alert, + pertinent finding (nods head to questions) Skin: normal color, warm/dry, no rash Lymphatic: no adenopathy Laboratory Results Last 24 Hours Test 07/10/17 22:21 07/11/17 02:33 07/11/17 05:45 07/11/17 06:35 Bedside Glucose 131 mg/dl 129 mg/dl 122 mg/dl White Blood Count 25.21 K/uL Red Blood Count 2.00 M/uL Hemoglobin 7.0 g/dL Hematocrit 22.8 % Mean Corpuscular Volume 114.0 fL Mean Corpuscular Hemoglobin 35.0 pg Mean Corpuscular Hemoglobin Concent 30.7 g/dl Platelet Count 64 K/uL Neutrophils (%) (Auto) 90.6 % Lymphocytes (%) (Auto) 2.9 % Monocytes (%) (Auto) 2.7 % Eosinophils (%) (Auto) 0.6 % Basophils (%) (Auto) 0.1 % Neutrophils # (Auto) 22.85 K/uL Lymphocytes # (Auto) 0.73 K/uL Monocytes # (Auto) 0.67 K/uL Eosinophils # (Auto) 0.16 K/uL Basophils # (Auto) 0.03 K/uL RDW Standard Deviation 116.0 fL RDW Coefficient of Variation 28.8 % Immature Granulocyte % (Auto) 3.1 % Immature Granulocyte # (Auto) 0.77 K/uL Nucleated RBC Absolute Count (auto) 0.90 K/uL Nucleated Red Blood Cells % 3.6 % Toxic Granulation 1+ Toxic Vacuolation 1+ Platelet Estimate DECREASED Large Platelets 1+ Polychromasia 1+ Basophilic Stippling OCCASIONAL Anisocytosis PRESENT Macrocytosis PRESENT Pappenheimer Bodies OCCASIONAL Prothrombin Time 12.3 SECONDS Prothromb Time International Ratio 1.2 Sodium Level 144 mmol/L Potassium Level 3.6 mmol/L Chloride Level 113 mmol/L Carbon Dioxide Level 20 mmol/L Anion Gap 11.0 mmol/L Blood Urea Nitrogen 71 mg/dl Creatinine 1.09 mg/dl Est Creatinine Clear Calc Drug Dose 75.9 ml/min Estimated GFR () 67.6 Estimated GFR (Non- 58.3 BUN/Creatinine Ratio 64.7 Random Glucose 122 mg/dl Calcium Level 7.9 mg/dl Phosphorus Level 3.8 mg/dl Magnesium Level 1.8 mg/dl Total Bilirubin 3.8 mg/dl Aspartate Amino Transf (AST/SGOT) 54 U/L Alanine Aminotransferase (ALT/SGPT) 26 U/L Alkaline Phosphatase 177 U/L Total Protein 4.5 gm/dl Albumin 1.8 gm/dl Globulin 2.7 gm/dl Albumin/Globulin Ratio 0.7 Triglycerides Level 135 mg/dl Test 07/11/17 09:58 07/11/17 10:56 Bedside Venous pH 7.30 Bedside Venous pCO2 41 mmHg Bedside Venous pO2 < 32 mmHg Bedside Venous HCO3 20 meq/L Bedside Venous Blood Total CO2 22 mEq/l Bedside Venous Blood O2 Saturation 51.0 % Bedside Venous Blood Base Excess -6.0 meq/L Bedside FiO2 40 % Bedside Glucose 128 mg/dl Assessment and Plan 52-year-old female critically ill with ischemic colitis versus C difficile infection, probable developing ARDS with respiratory failure,. White count has improved with addition of caspofungin, suggests possibility of disseminated fungal infection. Would give empiric 10 day course if cultures remain negative. Continue vancomycin for C difficile infection. Will follow.
[2017-07-11] MEDS: ALBUT/IPRATROP 3MG/0.5MG NEB 3 ML VIAL INH SCH (19:39)
--- NOTE | 2017-07-11 20:34 | Hospitalist Progress Note ---
Hospitalist Progress Note Date of Service Jul 11, 2017. Subjective Pt evaluation today including: conversation w/ patient, conversation w/ regional engagement consultant (Grey Stock Recorder PA) Pt extubated today, is very lethargic, does open her eyes to look at me, but doesn't really answer any questions. Is very volume overloaded, is on lasix gtt , given IV chlorthalidone today. Afebrile Additional Comments: unobtainable Objective Vital Signs Date Time Temp Pulse Resp B/P (MAP) Pulse Ox O2 Delivery O2 Flow Rate FiO2 07/11/17 19:40 80 14 98 Nasal Cannula 4.0 07/11/17 18:00 85 20 111/55 (73) 96 Nasal Cannula 4.0 07/11/17 16:00 36.8 86 17 99/58 (72) 94 Mask 12.0 50 07/11/17 16:00 Mask 12.0 50 07/11/17 14:00 83 15 90/68 (75) 98 Mask 12.0 50 07/11/17 12:00 36.6 87 16 112/70 (84) 95 CPAP 40 Mechanical Ventilator 07/11/17 12:00 40 07/11/17 12:00 CPAP 40 Mechanical Ventilator 07/11/17 11:16 30 07/11/17 10:00 30 07/11/17 10:00 89 17 123/65 (84) 95 CPAP 40 Mechanical Ventilator 07/11/17 08:00 40 07/11/17 08:00 CPAP 40 07/11/17 08:00 CPAP 40 Mechanical Ventilator 07/11/17 08:00 36.5 89 16 106/74 (85) 97 CPAP 40 07/11/17 07:42 40 07/11/17 06:01 82 14 101/57 (72) 99 CPAP 40 07/11/17 06:00 79 14 97 CPAP 40 07/11/17 05:16 81 14 91/54 (66) 99 CPAP 40 07/11/17 05:01 75 14 91/54 (66) 100 CPAP 40 07/11/17 05:00 74 14 100 CPAP 40 07/11/17 04:01 86 14 108/72 (84) 99 CPAP 40 07/11/17 04:00 36.9 86 14 99 CPAP 40 07/11/17 04:00 99 CPAP 40 Mechanical Ventilator 07/11/17 04:00 40 07/11/17 03:01 89 14 118/77 (91) 98 CPAP 40 07/11/17 03:00 91 14 98 CPAP 40 07/11/17 02:27 40 07/11/17 02:01 78 14 116/55 (75) 97 CPAP 40 07/11/17 02:00 76 14 97 CPAP 40 07/11/17 01:01 91 14 110/70 (83) 97 CPAP 40 07/11/17 01:00 91 14 98 CPAP 40 07/11/17 00:01 91 14 124/67 (86) 98 CPAP 40 07/11/17 00:00 97 CPAP 15.0 40 Mechanical Ventilator 07/11/17 00:00 40 07/11/17 00:00 36.7 90 14 98 CPAP 40 07/10/17 23:31 78 11 97 Mechanical Ventilator 40 07/10/17 22:25 40 07/10/17 22:01 93 15 105/76 (86) 98 CPAP 40 Mechanical Ventilator Physical Exam General Appearance: no apparent distress, + pertinent finding (lethargic) Eyes: + abnormal sclerae exam (icteric) ENT: pharynx normal, + pertinent finding (NGT in place) Neck: trachea midline Respiratory/Chest: no respiratory distress, no accessory muscle use, + decreased breath sounds (diminished throughout, +insp and exp wheezes) Cardiovascular: regular rate, rhythm, + pertinent finding (massive ansarca) Abdomen: normal bowel sounds, non tender, soft Extremities: + swelling Neurologic/Psychiatric: + disoriented, + pertinent finding (lethargic) Skin: warm/dry, + rash (petechiae underneath pannus on abdomen), + jaundice, + pertinent finding (RIJ and RUE PICC lines in place without erythema or ecchymosis) Laboratory Results Last 24 Hours Test 07/10/17 22:21 07/11/17 02:33 07/11/17 05:45 07/11/17 06:35 Bedside Glucose 131 mg/dl 129 mg/dl 122 mg/dl White Blood Count 25.21 K/uL Red Blood Count 2.00 M/uL Hemoglobin 7.0 g/dL Hematocrit 22.8 % Mean Corpuscular Volume 114.0 fL Mean Corpuscular Hemoglobin 35.0 pg Mean Corpuscular Hemoglobin Concent 30.7 g/dl Platelet Count 64 K/uL Neutrophils (%) (Auto) 90.6 % Lymphocytes (%) (Auto) 2.9 % Monocytes (%) (Auto) 2.7 % Eosinophils (%) (Auto) 0.6 % Basophils (%) (Auto) 0.1 % Neutrophils # (Auto) 22.85 K/uL Lymphocytes # (Auto) 0.73 K/uL Monocytes # (Auto) 0.67 K/uL Eosinophils # (Auto) 0.16 K/uL Basophils # (Auto) 0.03 K/uL RDW Standard Deviation 116.0 fL RDW Coefficient of Variation 28.8 % Immature Granulocyte % (Auto) 3.1 % Immature Granulocyte # (Auto) 0.77 K/uL Nucleated RBC Absolute Count (auto) 0.90 K/uL Nucleated Red Blood Cells % 3.6 % Toxic Granulation 1+ Toxic Vacuolation 1+ Platelet Estimate DECREASED Large Platelets 1+ Polychromasia 1+ Basophilic Stippling OCCASIONAL Anisocytosis PRESENT Macrocytosis PRESENT Pappenheimer Bodies OCCASIONAL Prothrombin Time 12.3 SECONDS Prothromb Time International Ratio 1.2 Sodium Level 144 mmol/L Potassium Level 3.6 mmol/L Chloride Level 113 mmol/L Carbon Dioxide Level 20 mmol/L Anion Gap 11.0 mmol/L Blood Urea Nitrogen 71 mg/dl Creatinine 1.09 mg/dl Est Creatinine Clear Calc Drug Dose 75.9 ml/min Estimated GFR () 67.6 Estimated GFR (Non- 58.3 BUN/Creatinine Ratio 64.7 Random Glucose 122 mg/dl Calcium Level 7.9 mg/dl Phosphorus Level 3.8 mg/dl Magnesium Level 1.8 mg/dl Total Bilirubin 3.8 mg/dl Aspartate Amino Transf (AST/SGOT) 54 U/L Alanine Aminotransferase (ALT/SGPT) 26 U/L Alkaline Phosphatase 177 U/L Total Protein 4.5 gm/dl Albumin 1.8 gm/dl Globulin 2.7 gm/dl Albumin/Globulin Ratio 0.7 Triglycerides Level 135 mg/dl Test 07/11/17 09:58 07/11/17 10:56 Bedside Venous pH 7.30 Bedside Venous pCO2 41 mmHg Bedside Venous pO2 < 32 mmHg Bedside Venous HCO3 20 meq/L Bedside Venous Blood Total CO2 22 mEq/l Bedside Venous Blood O2 Saturation 51.0 % Bedside Venous Blood Base Excess -6.0 meq/L Bedside FiO2 40 % Bedside Glucose 128 mg/dl Assessment and Plan This patient is a 52 year old female with alcoholic liver cirrhosis, C. Diff ( September 2016), Asthma, HTN, Anxiety, Alcohol Abuse, Tobacco Abuse, Non-Bleeding Gastric Ulcer, Macrocytic Anemia, Severe Fatty Liver Disease, and S/P Cholecystectomy who presents to the ED c/o abdominal pain, and with acute kidney injury, bloody diarrhea, hypertension and C. difficile colitis. She was also found to have acute alcoholic hepatitis. During her hospital stay, she had acute respiratory failure secondary to sepsis from pneumonia and C. difficile colitis and was intubated for the last week- prolonged due to ARDS. Extubated today. Currently has massive anasarca in ICU. Assessment Septic shock secondary to below Severe C. difficile colitis Pneumonia-HCAP Acute hypoxic respiratory failure/ARDS-was ventilator dependent, now extubated Alcoholic liver hepatitis with liver failure / MELD score is 20 Acute kidney injury secondary to decreased perfusion, septic shock-resolved Electrolyte imbalance Chronic blood loss anemia, as per family chronic GI bleed-hemoglobin today 7.0 thrombocytopenia likely secondary to liver disease, platelets count today is 64 Plan Continue airway management as per critical care team, status post successful bronchoscopy on 07/10, follow-up cultures-now off antibiotics for pneumonia -Continue bronchodilators, IV caspofungin empirically for fungemia given TPN and central lines Severe leukocytosis is improving since stopping IV steroids-follow CBC -Transfuse for hemoglobin less than 7.0 as per ICU DrJaylan Continue oral Vanco /Flagyl IV for Clostridium difficile-appreciate GI consultation Continue Lasix drip started by primary team as well as chlorthalidone IV given today-needs massive diuresis Follow-up I/o continue GI prophylaxis -Follow LFTs for alcoholic hepatitis-continue to improve today Prophylaxis-SCDs, no anticoagulation given thrombocyte anemia and severe anemia Prognosis-very guarded, remains in ICU DNR
[2017-07-12] VITALS (19 sets, daily range): BP systolic 92–112; BP diastolic 47–68; PULSE 70–99; TEMP 36.4–36.9; O2SAT 93–100
[2017-07-12] MEDS: FUROSEMIDE INJ 100 MG in DEXTROSE 5% 100ML 90 ML IV SCH ×4 (01:32→19:50)
[2017-07-12] MEDS: INSULIN ASPART 100 UNITS/ML 3 ML PEN SC SCH ×6 (04:00→20:00)
[2017-07-12] MEDS: METRONIDAZOLE / NSS 500 MG in PREMIXED NSS 100 ML IV SCH ×3 (04:24→19:49)
[2017-07-12] MEDS: VANCOMYCIN HCL 250 MG/5 ML SOLN PO SCH ×2 (04:25→11:08)
[2017-07-12 05:53] LABS: INR 1.1 (0.9-1.1)
[2017-07-12 06:10] LABS: ALBUMIN 1.8 gm/dl (3.4-5.0); CALCIUM 8.1 mg/dl (8.5-10.1); CREATININE 1.1 mg/dl (0.60-1.20); POTASSIUM 3.5 mmol/L (3.5-5.1)
[2017-07-12 06:13] LABS: PHOSPHORUS 4.1 mg/dl (2.5-4.9); TOTAL PROTEIN 4.9 gm/dl (6.4-8.2)
[2017-07-12 06:49] LABS: BASO % 0.2 %; BASO ABS # 0.04 K/uL (0-0.2); EOS % 0.8 %; EOS ABS # 0.18 K/uL (0-0.5); HEMATOCRIT 24.3 % (37-47); HEMOGLOBIN 7.6 g/dL (12.0-16.0); IG# 0.56 K/uL (0.00-0.02); LYMPH % 2.2 %; LYMPH ABS # 0.49 K/uL (1.2-3.4); MEAN CELL VOLUME 114.1 fL (80-100); MEAN CORPUSCULAR HEMOGLOBIN 35.7 pg (25-34); MEAN CORPUSCULAR HGB CONC 31.3 g/dl (32-36); MONO % 3.6 %; MONO ABS # 0.79 K/uL (0.11-0.59); NEUT % 90.7 %; NEUT ABS # 20.11 K/uL (1.4-6.5); NUCLEATED RED BLOOD CELL ABS 0.61 K/uL (0-0); PLATELET COUNT 74 K/uL (130-400); RED CELL DISTRIBUTION WIDTH CV 29.3 % (11.5-14.5); RED CELL DISTRIBUTION WIDTH SD 117.2 fL (36.4-46.3); WHITE BLOOD COUNT 22.17 K/uL (4.8-10.8)
[2017-07-12] MEDS: ALBUT/IPRATROP 3MG/0.5MG NEB 3 ML VIAL INH SCH ×4 (07:34→18:53)
[2017-07-12] MEDS: PANTOprazole INJ 40 MG in SYRINGE 0 ML IV SCH ×2 (08:01→19:50)
[2017-07-12] MEDS ORDERED: POTASSIUM CHLORIDE 20 MEQ/15 ML UDC PO STA (09:08)
[2017-07-12] MEDS ORDERED: PEPTAMEN 1.5 CAL 1000ML BAG NG PRN (09:15)
[2017-07-12] MEDS: CASPOFUNGIN INJ 50 MG in SODIUM CHLORIDE 0.9% 100ML 100 ML IV SCH (11:07)
--- NOTE | 2017-07-12 14:11 | Critical Care Progress Note ---
Critical Care Progress Note Date of Service Jul 12, 2017. ICU Day ICU Day Number: [address] Gonzalez Subjective This AM pt responds to name and shakes head saying no when asked if anything is bothering her. Remains non-verbal. ON: no acute events. Off vent on NC now. Objective General: resting in bed, lethargic SEA CAPTAIN: RASS score of -1 (responds to vocal stimuli), follows commands and moving extremities but not against gravity and head, attempting to vocalize and smiling HEENT: Increased scleral icterus, ET tube and OG tube Lungs: diminished breath sounds, scattered rhonchi, expiratory/inspiratory wheezing CVS: RRR, normal S1, S2, no murmurs Skin: jaundiced Abdomen: +BS (hypoactive); distended, TTP diffusely especially in lower abdomen , severe hepatomegaly Extremities: 4+ pedal edema Assessment & Plan 52y/oF admitted with severe sepsis secondary to likely C.diff colitis. NOW with improved acute lung injury off mechanical ventilation on 4L NC. Mental status improving, moderate-severe encephalopathy in setting of sepsis vs. hepatic encephalopathy vs chronic alcohol effects based on imaging. Last ammonia normal at 10. LFTs improving but clinically more jaundiced today. Persistent liver failure in the setting of alcoholic cirrhosis. Acidosis improved. Off pressors and sedation since 07/05. PLAN: SEA CAPTAIN: This AM RASS score -1. Responds to vocal stimuli, follows commands, attempting to verbalize and moving head and extremities MS changes consistent with moderate-severe encephalopathy likely in the setting of sepsis vs. hepatic encephalopathy vs chronic alcohol effects based on imaging. MRI abnormal on 07/08 with multiple symmetric midline legions consistent with metabolic encephalopathy vs. chronic alcohol b use CT 07/06 no acute IC pathology EEG 07/06 no epileptiform activity Neurology consulted - subclinical seizure unlikely, mental status changes likely from metabolic encephalopathy vs. alcohol related; at high risk for seizures (will monitor) Off fentanyl since 07/05 Off Versed since 0500 07/04 Dced BIS monitor and Nimbex at 1200 on 07/03 CVS: BP normalized. 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 No intervention at this time. SMA/LISBET patent. Hypervolemic +38L PULM: Improving acute lung injury. Bronchoscopy performed to clear bronchial secretions on 07/10 On 4L NC, extubated on 07/11 CXR 07/09: no pneumothorax, cardiomegaly with volume overload, mild pulm edema, small layering pleural effusion Pulm Toilet: alubterol 4 puffs Q4H; Atrovent 4 puffs Q4H Dced Methylpred 40mg Q12H (given WBC elevation to ensure not masking worsening infection) on 07/09 RENAL/METABOLIC: renal function at baseline Cr ~ 1; Cr today 1.1 with worsening BUN of 78 in the setting of Lasix gtt. Improving urine output Volume overloaded by +38L Increased Lasix drip to 15mg/hr ID: Sepsis 05/25 C. diff vs PNA Abdominal CT 07/06: small pleural effusion and dense bibasilar consolidation; diffuse ground glass; diffuse anasarca body wall increased from 06/29; small volume of amniopelvic ascites increased from 06/29; hepatomegaly with severe hepatic steatosis; mild peripancreatic stranding/fluid. CXR 07/09: no pneumothorax, cardiomegaly with volume overload, mild pulm edema, small layering pleural effusion procal 1.67 on 07/06 Blood culture from 07/01 no growth Fungal gram stain and culture - no yeast or fungus Repeat sputum gram stain and culture - marisol albicans C.diff Abx regimen: Continue Vanc PO 500mg day 13; Flagyl 500mg Q8H IV day 11 Continue caspofungin 50mg Q4H IV day 4 Received Aztreonam, Linezolid, and Levofloxacin x 3 days Received Vanc LA x 4 days Received Cefepime x 5 days Received IV vanc x 3 days ENDO: SSI goal 120-160 CF 25; blood sugars in 100s-120s range HEME: Anemia stable H/H 7.6/24.3; plt ct improving 64 to 74 No evidence of bleeding Heparin PF4 Ab - neg Dced heparin for concern of HIT 2 Monitor CBC Consider transfusing once Hgb < 7 Electrolytes: Low Ca 8.1 (corrected 9.4 given albumin of 1.8), Mag 1.8 and Phos 4.1) Nutrition: Dced TPN; passed swallow eval; will work on PO intake Thiamine 500mg Folic Acid GI: Off TPN, NG intact, will attempt to increase PO intake given passed swallow eval Persistent liver failure; LFT improving MELD score 20 (19.6% mortality risk); Child-Burns score of 11 (class C) Continue recurrent C.diff Colitis treatment: Vanc PO day 13; Flagyl IV day 11 Consulted surgery: high mortality risk for total colectomy at this time GI prophylaxis: Protonix 40mg IV BID IV access: Placed R IJ central venous cath 07/09 Placed R arm PICC line 07/05 Removed L femoral tri-lumen central venous cath and kyle 07/05 DVT Prophylaxis: SCDs CCT: 45 minutes independent of procedures Thank you for including us in the care of this patient. Please refer to Dr. Gonzalez's addendum for further recommendations. Attending addendum: The patient was seen, examined independently, agree with assessment and plan of my colleague Dr. Horton. The patient continued to improve over the past 24 hours as well. She remains extubated. She is tolerating oral intake according to speech pathology. The patient will be started also on oral intake and if it is tolerable, the NG tube will stop. Currently will continue with NG tube and keep the tube feeding ongoing. Continue with diuresis using Lasix drip, the patient BUN has increased but her creatinine has been stable. The rise in her BUN likely related to TPN. Also, continue Vanco orally. Physical therapy and out of bed. Case discussed with the staff on rounds and details, critical care time spent with the patient was 45 minutes. Discussed also with GI, appreciate their input. Consults & Procedures Consultants: GI: Dr Joseph Vascular: Dr Baron General Surgery: Dr. Choe IV team for PICC line Procedures: 07/01/17: left femoral TLC 07/01/17: left femoral a-line 07/01/17: intubation 07/09/17: R IJ placement Data Medications: Current Inpatient Medications Medications (Trade) Dose Ordered Sig/Razia Route Start Time Stop Time Status Last Admin Dose Admin Pantoprazole Sodium 40 mg/ Syringe 10 ml @ 5 mls/min BID IV 06/27/17 09:00 07/27/17 08:59 07/12/17 08:01 5 MLS/MIN Ondansetron HCl (Zofran Inj) 4 mg Q6H PRN IV 06/27/17 17:46 07/27/17 17:45 Hydromorphone HCl (Dilaudid Inj) 1 mg Q3HWA PRN IV 06/29/17 09:15 07/13/17 09:14 06/30/17 20:36 1 MG Albuterol/ Ipratropium (Duoneb) 3 ml Q4 PRN INH 07/01/17 05:30 07/31/17 05:29 Future Hold 07/01/17 10:06 3 ML Artificial Tears (Lacri-Lube Oph Oint) 1 appln Q2H PRN OPB 07/02/17 21:45 08/01/17 21:44 Heparin Sodium (Porcine) (Heparin 10 Unit/ ml 5 ml Flush) 5 ml PRN PRN FLUSH 07/04/17 20:45 08/03/17 20:44 Metronidazole 500 mg/Prmx 100 ml @ 100 mls/hr Q8H IV 07/09/17 12:00 07/23/17 11:59 07/12/17 04:24 100 MLS/HR Furosemide 100 mg/ Dextrose 100 ml @ 15 mls/hr Q6H40M IV 07/09/17 11:15 08/08/17 11:14 07/12/17 08:55 15 MLS/HR Miscellaneous Information (Pharmacy Tpn/ Ppn Consult Active) 1 ea UD PRN N/A 07/09/17 13:45 08/08/17 13:44 Dextrose 1,000 ml @ 0 mls/hr Q0M PRN IV 07/09/17 13:47 08/08/17 13:46 Glucose (Glucose 40% Gel) 15-30 GRAMS 15 GRAMS... UD PRN PO 07/09/17 14:45 08/08/17 14:44 Glucose (Glucose Chew Tab) 4-8 Tablets 4 Tabl... UD PRN PO 07/09/17 14:45 08/08/17 14:44 Dextrose (Dextrose 50% 50ML Syringe) 25-50ML OF 50% DW IV FOR... UD PRN IV 07/09/17 14:45 08/08/17 14:44 07/09/17 14:20 25 ML Glucagon (Glucagon Inj) 1 mg UD PRN SQ 07/09/17 14:45 08/08/17 14:44 Nutrition (Parenteral) 0 ml @ 0 mls/hr TODAY@1600 IV 07/11/17 16:00 07/12/17 15:59 07/11/17 15:29 0 MLS/HR Caspofungin 50 mg/ Sodium Chloride 110 ml @ 110 mls/hr Q24H IV 07/12/17 11:00 08/08/17 10:59 Insulin Aspart (novoLOG ASPART) SLIDING SCALE Q4 SC 07/11/17 16:00 08/10/17 15:59 Vancomycin HCl (Vancomycin Oral Soln) 500 mg Q6H PO 07/12/17 16:00 07/22/17 15:59 Albuterol/ Ipratropium (Duoneb) 3 ml QIDR INH 07/11/17 20:00 08/10/17 19:59 07/12/17 11:16 3 ML Enteral Nutritional Formula (Peptamen 1.5) 1,000 ml UD PRN NG 07/12/17 09:15 08/11/17 09:14 Nutrition (Parenteral) 0 ml @ 0 mls/hr TODAY@1600 IV 07/12/17 16:00 07/13/17 15:59 I & O: 24hrs: Is/Os: 2825cc/2800cc Net -700; Overall still 38L positive. 1 BM. Vital Signs: Date Time Temp Pulse Resp B/P (MAP) Pulse Ox O2 Delivery O2 Flow Rate FiO2 07/12/17 11:16 87 16 99 Nasal Cannula 4.0 07/12/17 10:00 81 26 112/68 (83) 99 Nasal Cannula 4.0 07/12/17 08:00 36.9 82 16 108/65 (79) 100 Nasal Cannula 4.0 07/12/17 08:00 Nasal Cannula 4.0 07/12/17 07:35 80 16 99 Nasal Cannula 4.0 07/12/17 05:05 36.4 70 17 102/62 (75) 98 Nasal Cannula 4.0 07/12/17 04:01 82 14 95/59 (71) 98 07/12/17 04:00 98 Nasal Cannula 4.0 07/12/17 02:01 84 15 100/64 (76) 97 07/12/17 00:01 36.6 73 12 94/47 (63) 93 Nasal Cannula 4.0 07/11/17 23:59 98 Nasal Cannula 4.0 07/11/17 22:01 86 18 107/53 (71) 97 Nasal Cannula 4.0 07/11/17 21:01 83 15 94/55 (68) 99 Nasal Cannula 4.0 07/11/17 20:01 36.6 81 16 91/51 (64) 95 Nasal Cannula 4.0 07/11/17 20:00 98 Nasal Cannula 4.0 07/11/17 19:40 80 14 98 Nasal Cannula 4.0 07/11/17 18:00 85 20 111/55 (73) 96 Nasal Cannula 4.0 07/11/17 16:00 36.8 86 17 99/58 (72) 94 Mask 12.0 50 07/11/17 16:00 Mask 12.0 50 07/11/17 14:00 83 15 90/68 (75) 98 Mask 12.0 50 07/11/17 12:00 36.6 87 16 112/70 (84) 95 CPAP 40 Mechanical Ventilator 07/11/17 12:00 40 07/11/17 12:00 CPAP 40 Mechanical Ventilator Laboratory Results: Last 24 Hours Test 07/11/17 15:33 07/11/17 20:02 07/12/17 00:29 07/12/17 04:23 Bedside Glucose 105 mg/dl 122 mg/dl 128 mg/dl 116 mg/dl Test 07/12/17 05:18 07/12/17 08:03 White Blood Count 22.17 K/uL Red Blood Count 2.13 M/uL Hemoglobin 7.6 g/dL Hematocrit 24.3 % Mean Corpuscular Volume 114.1 fL Mean Corpuscular Hemoglobin 35.7 pg Mean Corpuscular Hemoglobin Concent 31.3 g/dl Platelet Count 74 K/uL Neutrophils (%) (Auto) 90.7 % Lymphocytes (%) (Auto) 2.2 % Monocytes (%) (Auto) 3.6 % Eosinophils (%) (Auto) 0.8 % Basophils (%) (Auto) 0.2 % Neutrophils # (Auto) 20.11 K/uL Lymphocytes # (Auto) 0.49 K/uL Monocytes # (Auto) 0.79 K/uL Eosinophils # (Auto) 0.18 K/uL Basophils # (Auto) 0.04 K/uL RDW Standard Deviation 117.2 fL RDW Coefficient of Variation 29.3 % Immature Granulocyte % (Auto) 2.5 % Immature Granulocyte # (Auto) 0.56 K/uL Nucleated RBC Absolute Count (auto) 0.61 K/uL Nucleated Red Blood Cells % 2.7 % Platelet Estimate DECREASED Large Platelets 1+ Polychromasia 1+ Basophilic Stippling OCCASIONAL Anisocytosis PRESENT Macrocytosis PRESENT Pappenheimer Bodies OCCASIONAL Prothrombin Time 11.4 SECONDS Prothromb Time International Ratio 1.1 Sodium Level 143 mmol/L Potassium Level 3.5 mmol/L Chloride Level 111 mmol/L Carbon Dioxide Level 25 mmol/L Anion Gap 7.0 mmol/L Blood Urea Nitrogen 78 mg/dl Creatinine 1.10 mg/dl Est Creatinine Clear Calc Drug Dose 74.7 ml/min Estimated GFR () 66.8 Estimated GFR (Non- 57.7 BUN/Creatinine Ratio 70.5 Random Glucose 127 mg/dl Calcium Level 8.1 mg/dl Phosphorus Level 4.1 mg/dl Magnesium Level 1.8 mg/dl Total Bilirubin 3.7 mg/dl Direct Bilirubin 3.0 mg/dl Aspartate Amino Transf (AST/SGOT) 60 U/L Alanine Aminotransferase (ALT/SGPT) 33 U/L Alkaline Phosphatase 220 U/L Total Protein 4.9 gm/dl Albumin 1.8 gm/dl Bedside Glucose 109 mg/dl
--- NOTE | 2017-07-12 14:51 | Gastroenterology Progress Note ---
Progress Note Date of Service: Jul 12, 2017 Subjective Pt evaluation today including: conversation w/ patient, conversation w/ family (mother), physical exam, chart review, lab review, review of studies, review of inpatient medication list cc f/u Cdiff, ETOH hepatitis HPI Discussed case with nurse and intesivist.Pt extubated. She complains of abd pain when I ask her but cannot quantitate or give me location vs generalized. She passed swallow study so they are going to allow po as well as continue NG feeds until taking po adequately. Minimal stooling per nurse. Review of Systems Respiratory: No shortness of breath Cardiac: No chest pain Medications Current Inpatient Medications Medications (Trade) Dose Ordered Sig/Razia Route Start Time Stop Time Status Last Admin Dose Admin Pantoprazole Sodium 40 mg/ Syringe 10 ml @ 5 mls/min BID IV 06/27/17 09:00 07/27/17 08:59 07/12/17 08:01 5 MLS/MIN Ondansetron HCl (Zofran Inj) 4 mg Q6H PRN IV 06/27/17 17:46 07/27/17 17:45 Hydromorphone HCl (Dilaudid Inj) 1 mg Q3HWA PRN IV 06/29/17 09:15 07/13/17 09:14 06/30/17 20:36 1 MG Albuterol/ Ipratropium (Duoneb) 3 ml Q4 PRN INH 07/01/17 05:30 07/31/17 05:29 Future Hold 07/01/17 10:06 3 ML Artificial Tears (Lacri-Lube Oph Oint) 1 appln Q2H PRN OPB 07/02/17 21:45 08/01/17 21:44 Heparin Sodium (Porcine) (Heparin 10 Unit/ ml 5 ml Flush) 5 ml PRN PRN FLUSH 07/04/17 20:45 08/03/17 20:44 Metronidazole 500 mg/Prmx 100 ml @ 100 mls/hr Q8H IV 07/09/17 12:00 07/23/17 11:59 07/12/17 11:08 100 MLS/HR Furosemide 100 mg/ Dextrose 100 ml @ 15 mls/hr Q6H40M IV 07/09/17 11:15 08/08/17 11:14 07/12/17 08:55 15 MLS/HR Miscellaneous Information (Pharmacy Tpn/ Ppn Consult Active) 1 ea UD PRN N/A 07/09/17 13:45 08/08/17 13:44 Dextrose 1,000 ml @ 0 mls/hr Q0M PRN IV 07/09/17 13:47 08/08/17 13:46 Glucose (Glucose 40% Gel) 15-30 GRAMS 15 GRAMS... UD PRN PO 07/09/17 14:45 08/08/17 14:44 Glucose (Glucose Chew Tab) 4-8 Tablets 4 Tabl... UD PRN PO 07/09/17 14:45 08/08/17 14:44 Dextrose (Dextrose 50% 50ML Syringe) 25-50ML OF 50% DW IV FOR... UD PRN IV 07/09/17 14:45 08/08/17 14:44 07/09/17 14:20 25 ML Glucagon (Glucagon Inj) 1 mg UD PRN SQ 07/09/17 14:45 08/08/17 14:44 Nutrition (Parenteral) 0 ml @ 0 mls/hr TODAY@1600 IV 07/11/17 16:00 07/12/17 15:59 07/11/17 15:29 0 MLS/HR Caspofungin 50 mg/ Sodium Chloride 110 ml @ 110 mls/hr Q24H IV 07/12/17 11:00 08/08/17 10:59 07/12/17 11:07 110 MLS/HR Insulin Aspart (novoLOG ASPART) SLIDING SCALE Q4 SC 07/11/17 16:00 08/10/17 15:59 Vancomycin HCl (Vancomycin Oral Soln) 500 mg Q6H PO 07/12/17 16:00 07/22/17 15:59 Albuterol/ Ipratropium (Duoneb) 3 ml QIDR INH 07/11/17 20:00 08/10/17 19:59 07/12/17 11:16 3 ML Enteral Nutritional Formula (Peptamen 1.5) 1,000 ml UD PRN NG 07/12/17 09:15 08/11/17 09:14 Objective Vital Signs Date Time Temp Pulse Resp B/P (MAP) Pulse Ox O2 Delivery O2 Flow Rate FiO2 07/12/17 12:00 36.8 88 21 102/66 (78) 100 Nasal Cannula 4.0 07/12/17 12:00 Nasal Cannula 4.0 07/12/17 11:16 87 16 99 Nasal Cannula 4.0 07/12/17 10:00 81 26 112/68 (83) 99 Nasal Cannula 4.0 07/12/17 08:00 36.9 82 16 108/65 (79) 100 Nasal Cannula 4.0 07/12/17 08:00 Nasal Cannula 4.0 07/12/17 08:00 Nasal Cannula 07/12/17 07:35 80 16 99 Nasal Cannula 4.0 07/12/17 05:05 36.4 70 17 102/62 (75) 98 Nasal Cannula 4.0 07/12/17 04:01 82 14 95/59 (71) 98 07/12/17 04:00 98 Nasal Cannula 4.0 07/12/17 02:01 84 15 100/64 (76) 97 07/12/17 00:01 36.6 73 12 94/47 (63) 93 Nasal Cannula 4.0 07/11/17 23:59 98 Nasal Cannula 4.0 07/11/17 22:01 86 18 107/53 (71) 97 Nasal Cannula 4.0 07/11/17 21:01 83 15 94/55 (68) 99 Nasal Cannula 4.0 07/11/17 20:01 36.6 81 16 91/51 (64) 95 Nasal Cannula 4.0 07/11/17 20:00 98 Nasal Cannula 4.0 07/11/17 19:40 80 14 98 Nasal Cannula 4.0 07/11/17 18:00 85 20 111/55 (73) 96 Nasal Cannula 4.0 07/11/17 16:00 36.8 86 17 99/58 (72) 94 Mask 12.0 50 07/11/17 16:00 Mask 12.0 50 Physical Exam General Appearance: WD/WN, no apparent distress Respiratory/Chest: lungs clear, no respiratory distress Cardiovascular: regular rate, rhythm, + pertinent finding (bilateral lower ext edema) Abdomen: normal bowel sounds, non tender, soft, no organomegaly, no pulsatile mass Neurologic/Psych: alert, + pertinent finding (more alert but still somewhat slow and cannot answer detailed questions) Skin: normal color Laboratory Results Last 24 Hours Test 07/11/17 15:33 07/11/17 20:02 3/22/18 00:29 07/12/17 04:23 Bedside Glucose 105 mg/dl 122 mg/dl 128 mg/dl 116 mg/dl Test 07/12/17 05:18 07/12/17 08:03 07/12/17 11:10 White Blood Count 22.17 K/uL Red Blood Count 2.13 M/uL Hemoglobin 7.6 g/dL Hematocrit 24.3 % Mean Corpuscular Volume 114.1 fL Mean Corpuscular Hemoglobin 35.7 pg Mean Corpuscular Hemoglobin Concent 31.3 g/dl Platelet Count 74 K/uL Neutrophils (%) (Auto) 90.7 % Lymphocytes (%) (Auto) 2.2 % Monocytes (%) (Auto) 3.6 % Eosinophils (%) (Auto) 0.8 % Basophils (%) (Auto) 0.2 % Neutrophils # (Auto) 20.11 K/uL Lymphocytes # (Auto) 0.49 K/uL Monocytes # (Auto) 0.79 K/uL Eosinophils # (Auto) 0.18 K/uL Basophils # (Auto) 0.04 K/uL RDW Standard Deviation 117.2 fL RDW Coefficient of Variation 29.3 % Immature Granulocyte % (Auto) 2.5 % Immature Granulocyte # (Auto) 0.56 K/uL Nucleated RBC Absolute Count (auto) 0.61 K/uL Nucleated Red Blood Cells % 2.7 % Platelet Estimate DECREASED Large Platelets 1+ Polychromasia 1+ Basophilic Stippling OCCASIONAL Anisocytosis PRESENT Macrocytosis PRESENT Pappenheimer Bodies OCCASIONAL Prothrombin Time 11.4 SECONDS Prothromb Time International Ratio 1.1 Sodium Level 143 mmol/L Potassium Level 3.5 mmol/L Chloride Level 111 mmol/L Carbon Dioxide Level 25 mmol/L Anion Gap 7.0 mmol/L Blood Urea Nitrogen 78 mg/dl Creatinine 1.10 mg/dl Est Creatinine Clear Calc Drug Dose 74.7 ml/min Estimated GFR () 66.8 Estimated GFR (Non- 57.7 BUN/Creatinine Ratio 70.5 Random Glucose 127 mg/dl Calcium Level 8.1 mg/dl Phosphorus Level 4.1 mg/dl Magnesium Level 1.8 mg/dl Total Bilirubin 3.7 mg/dl Direct Bilirubin 3.0 mg/dl Aspartate Amino Transf (AST/SGOT) 60 U/L Alanine Aminotransferase (ALT/SGPT) 33 U/L Alkaline Phosphatase 220 U/L Total Protein 4.9 gm/dl Albumin 1.8 gm/dl Bedside Glucose 109 mg/dl 114 mg/dl Assessment and Plan alcoholic liver disease--TB better but others up some, INR better to so overall stable. Told pt to avoid ETOH completely or it will kill her. mental status changes---ammonia was normal --improved Elevated WBC--improved ascites--minimal on f/u CT 07/06/17 so doubt has SBP peripancreatic stranding on CT--could have an element of pancreatitis but this is not major issue and should continue tube feeds. Will repeat lipase in am. hepatomegaly--presumably from ETOH elevated LFTS--from ETOH elev INR from ETOH--imrpoved abd pain--follow but benign exam and WBC improved and minimal diarrhea so doubt toxic megacolon Cdiff colitis--Cdiff 07/10 neg. This was recurrent so when this is to be stopped should be tapered over minimum of 4 weeks so qid one week, tid one week, bid one week, once daily one week then off as minimum taper length. nutrition--on TPN at present Thickened colon on admit CT--most likely from Cdiff. 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 Also if ischemic bowel were original problem the repeat CT 07/06 would have shown more significant bowel findings (other than sigmoid diverticulosis, no other bowel findings mentioned on CT).
[2017-07-12] MEDS ORDERED: CUSTOM CENTRAL PN 1 BAG IV SCH (16:00)
[2017-07-12] MEDS: VANCOMYCIN HCL 500 MG/10ML SOLN PO SCH ×2 (16:19→22:17)
--- NOTE | 2017-07-12 22:55 | Hospitalist Progress Note ---
Hospitalist Progress Note Date of Service Jul 12, 2017. Subjective Pt evaluation today including: conversation w/ patient Patient more alert today. Past her swallow evaluation and had a little bit of pudding today. She denies pain. Cannot really tell me much else Additional Comments: Mostly unobtainable due to encephalopathy Objective Vital Signs Date Time Temp Pulse Resp B/P (MAP) Pulse Ox O2 Delivery O2 Flow Rate FiO2 07/12/17 22:01 87 24 104/56 (72) 97 Nasal Cannula 2.0 07/12/17 20:01 36.9 99 26 92/61 (71) 94 Nasal Cannula 2.0 07/12/17 20:00 97 Nasal Cannula 2.0 07/12/17 18:53 95 16 94 Nasal Cannula 4.0 07/12/17 18:00 95 20 94/61 (72) 96 Nasal Cannula 2.0 07/12/17 16:43 85 16 94 Nasal Cannula 4.0 07/12/17 16:00 36.9 90 17 93/54 (67) 97 Nasal Cannula 2.0 07/12/17 16:00 Nasal Cannula 4.0 07/12/17 14:00 88 16 96/61 (73) 96 Nasal Cannula 4.0 07/12/17 12:00 36.8 88 21 102/66 (78) 100 Nasal Cannula 4.0 07/12/17 12:00 Nasal Cannula 4.0 07/12/17 11:16 87 16 99 Nasal Cannula 4.0 07/12/17 10:00 81 26 112/68 (83) 99 Nasal Cannula 4.0 07/12/17 08:00 36.9 82 16 108/65 (79) 100 Nasal Cannula 4.0 07/12/17 08:00 Nasal Cannula 4.0 07/12/17 08:00 Nasal Cannula 07/12/17 07:35 80 16 99 Nasal Cannula 4.0 07/12/17 05:05 36.4 70 17 102/62 (75) 98 Nasal Cannula 4.0 07/12/17 04:01 82 14 95/59 (71) 98 07/12/17 04:00 98 Nasal Cannula 4.0 07/12/17 02:01 84 15 100/64 (76) 97 07/12/17 00:01 36.6 73 12 94/47 (63) 93 Nasal Cannula 4.0 07/11/17 23:59 98 Nasal Cannula 4.0 Physical Exam General Appearance: no apparent distress, + pertinent finding (Appears ill, but is more alert today and follows some commands) Eyes: + abnormal sclerae exam (Icterus) ENT: hearing grossly normal Neck: trachea midline Respiratory/Chest: no respiratory distress, no accessory muscle use, + decreased breath sounds (At the bases bilaterally) Cardiovascular: regular rate, rhythm, + pertinent finding (Massive anasarca) Abdomen: normal bowel sounds, non tender, soft, + hepatomegaly Extremities: + swelling (Massive anasarca as above) Neurologic/Psychiatric: alert Skin: + jaundice Laboratory Results Last 24 Hours Test 07/12/17 00:29 07/12/17 04:23 07/12/17 05:18 07/12/17 08:03 Bedside Glucose 128 mg/dl 116 mg/dl 109 mg/dl White Blood Count 22.17 K/uL Red Blood Count 2.13 M/uL Hemoglobin 7.6 g/dL Hematocrit 24.3 % Mean Corpuscular Volume 114.1 fL Mean Corpuscular Hemoglobin 35.7 pg Mean Corpuscular Hemoglobin Concent 31.3 g/dl Platelet Count 74 K/uL Neutrophils (%) (Auto) 90.7 % Lymphocytes (%) (Auto) 2.2 % Monocytes (%) (Auto) 3.6 % Eosinophils (%) (Auto) 0.8 % Basophils (%) (Auto) 0.2 % Neutrophils # (Auto) 20.11 K/uL Lymphocytes # (Auto) 0.49 K/uL Monocytes # (Auto) 0.79 K/uL Eosinophils # (Auto) 0.18 K/uL Basophils # (Auto) 0.04 K/uL RDW Standard Deviation 117.2 fL RDW Coefficient of Variation 29.3 % Immature Granulocyte % (Auto) 2.5 % Immature Granulocyte # (Auto) 0.56 K/uL Nucleated RBC Absolute Count (auto) 0.61 K/uL Nucleated Red Blood Cells % 2.7 % Platelet Estimate DECREASED Large Platelets 1+ Polychromasia 1+ Basophilic Stippling OCCASIONAL Anisocytosis PRESENT Macrocytosis PRESENT Pappenheimer Bodies OCCASIONAL Prothrombin Time 11.4 SECONDS Prothromb Time International Ratio 1.1 Sodium Level 143 mmol/L Potassium Level 3.5 mmol/L Chloride Level 111 mmol/L Carbon Dioxide Level 25 mmol/L Anion Gap 7.0 mmol/L Blood Urea Nitrogen 78 mg/dl Creatinine 1.10 mg/dl Est Creatinine Clear Calc Drug Dose 74.7 ml/min Estimated GFR () 66.8 Estimated GFR (Non- 57.7 BUN/Creatinine Ratio 70.5 Random Glucose 127 mg/dl Calcium Level 8.1 mg/dl Phosphorus Level 4.1 mg/dl Magnesium Level 1.8 mg/dl Total Bilirubin 3.7 mg/dl Direct Bilirubin 3.0 mg/dl Aspartate Amino Transf (AST/SGOT) 60 U/L Alanine Aminotransferase (ALT/SGPT) 33 U/L Alkaline Phosphatase 220 U/L Total Protein 4.9 gm/dl Albumin 1.8 gm/dl Test 07/12/17 11:10 07/12/17 16:18 07/12/17 19:56 Bedside Glucose 114 mg/dl 107 mg/dl 119 mg/dl Assessment and Plan This patient is a 52 year old female with alcoholic liver cirrhosis, C. Diff ( September 2016), Asthma, HTN, Anxiety, Alcohol Abuse, Tobacco Abuse, Non-Bleeding Gastric Ulcer, Macrocytic Anemia, Severe Fatty Liver Disease, and S/P Cholecystectomy who presents to the ED c/o abdominal pain, and with acute kidney injury, bloody diarrhea, hypertension and C. difficile colitis. She was also found to have acute alcoholic hepatitis. During her hospital stay, she had acute respiratory failure secondary to sepsis from pneumonia and C. difficile colitis and was intubated for the last week- prolonged due to ARDS. Extubated on 07/11. Currently has massive anasarca in ICU. Assessment Septic shock secondary to below Severe C. difficile colitis-clinically resolved [id number] completed treatment Acute hypoxic respiratory failure/ARDS-was ventilator dependent, now extubated and on 2 L nasal cannula Alcoholic liver hepatitis with liver failure / MELD score is 20-improved Acute kidney injury secondary to decreased perfusion, septic shock-resolved Electrolyte imbalance-resolved Chronic blood loss anemia, as per family chronic GI bleed-hemoglobin today up from 7.0-7.6 thrombocytopenia likely secondary to liver disease, platelets count today is up to 74 from 64 Leukocytosis-continues to improve and is down to 22 today Mayra growing in cultures from sputum and BAL Plan Continue airway management as per critical care team, status post successful bronchoscopy on 07/10, follow-up cultures-now off antibiotics for pneumonia -Continue bronchodilators, IV caspofungin empirically for fungemia given TPN and central lines-now off TPN Severe leukocytosis is improving since stopping IV steroids-follow CBC -Transfuse for hemoglobin less than 7.0 as per ICU Continue oral Vanco /Flagyl IV for Clostridium difficile-appreciate GI consultation-needs a 4 week taper of her antibiotics as per GI Continue Lasix drip -needs massive diuresis, none achieved so far-continue Kovacs catheter Follow-up I/o continue GI prophylaxis -Follow LFTs for alcoholic hepatitis-continue to improve/stable -Increase tube feeds and oral feeds as tolerated-continue NG tube Prophylaxis-SCDs, no anticoagulation given thrombocytopenia and severe anemia Prognosis-very guarded, remains in ICU DNR
[2017-07-13] VITALS (23 sets, daily range): BP systolic 87–134; BP diastolic 50–78; PULSE 85–99; TEMP 36.4–36.8; O2SAT 85–100
[2017-07-13] MEDS: METRONIDAZOLE / NSS 500 MG in PREMIXED NSS 100 ML IV SCH ×3 (03:50→20:09)
[2017-07-13] MEDS: FUROSEMIDE INJ 100 MG in DEXTROSE 5% 100ML 90 ML IV SCH ×3 (03:51→18:36)
[2017-07-13] MEDS: VANCOMYCIN HCL 500 MG/10ML SOLN PO SCH ×4 (03:51→20:13)
[2017-07-13 06:49] LABS: ALBUMIN 1.8 gm/dl (3.4-5.0); CALCIUM 8.3 mg/dl (8.5-10.1); PHOSPHORUS 3.9 mg/dl (2.5-4.9); POTASSIUM 3.4 mmol/L (3.5-5.1)
[2017-07-13 07:06] LABS: HEMATOCRIT 23.4 % (37-47); HEMOGLOBIN 7.4 g/dL (12.0-16.0); MEAN CELL VOLUME 113.6 fL (80-100); MEAN CORPUSCULAR HEMOGLOBIN 35.9 pg (25-34); MEAN CORPUSCULAR HGB CONC 31.6 g/dl (32-36); MEAN PLATELET VOLUME 12.3 fL (7.4-10.4); NUCLEATED RED BLOOD CELL ABS 0.18 K/uL (0-0); PLATELET COUNT 84 K/uL (130-400); RED CELL DISTRIBUTION WIDTH CV 30.9 % (11.5-14.5); RED CELL DISTRIBUTION WIDTH SD 124.7 fL (36.4-46.3); WHITE BLOOD COUNT 15.65 K/uL (4.8-10.8)
[2017-07-13] MEDS: ALBUT/IPRATROP 3MG/0.5MG NEB 3 ML VIAL INH SCH ×4 (07:28→21:30)
[2017-07-13] MEDS: INSULIN ASPART 100 UNITS/ML 3 ML PEN SC SCH ×6 (07:30→20:00)
[2017-07-13] MEDS ORDERED: MAGNESIUM SULFATE 1GM / D5W 1 GM in PREMIXED IN D5W 100 ML IV ONE (07:45)
[2017-07-13] MEDS ORDERED: POTASSIUM CHLORIDE 20 MEQ TABCR PO SCH (09:00)
[2017-07-13] MEDS: FoLIC ACID INJ 1 MG in SYRINGE 9.8 ML IV SCH (09:06)
[2017-07-13] MEDS: PANTOprazole INJ 40 MG in SYRINGE 0 ML IV SCH ×2 (09:06→20:09)
[2017-07-13] MEDS: THIAMINE HCL INJ 200 MG in SODIUM CHLORIDE 0.9% 50ML 50 ML IV SCH ×2 (09:07→20:12)
[2017-07-13] MEDS: CEROVITE ADV FORMULA TAB PO SCH (09:07)
[2017-07-13] MEDS: POTASSIUM CHLORIDE 20 MEQ/15 ML UDC PO SCH ×2 (09:10→20:13)
[2017-07-13] MEDS: CASPOFUNGIN INJ 50 MG in SODIUM CHLORIDE 0.9% 100ML 100 ML IV SCH (11:53)
--- NOTE | 2017-07-13 14:36 | Critical Care Progress Note ---
Critical Care Progress Note Date of Service Jul 13, 2017. Attending Dr. Gonzalez Subjective The patient is more awake, following commands, overall lethargic and weak. She is able to maintain her airways, she does have occasional cough, no pain was reported. Objective General: resting in bed, lethargic [employer]: RASS score of -1 (responds to vocal stimuli), follows commands and moving extremities but not against gravity and head, attempting to vocalize and smiling HEENT: Increased scleral icterus, ET tube and OG tube Lungs: diminished breath sounds, scattered rhonchi, expiratory/inspiratory wheezing CVS: RRR, normal S1, S2, no murmurs Skin: jaundiced Abdomen: +BS (hypoactive); distended, TTP diffusely especially in lower abdomen , severe hepatomegaly Extremities: 4+ pedal edema Her physical exam on July 13, 2017 revealed vital signs are stable, S1-S2 regular rate and rhythm, NG tube in place, crackles at the bases, anasarca, abdomen is benign. Edema in the periphery. Her laboratory also reviewed personally Assessment & Plan 52y/oF admitted with severe sepsis secondary to likely C.diff colitis. NOW with improved acute lung injury off mechanical ventilation on 4L NC. Mental status improving, moderate-severe encephalopathy in setting of sepsis vs. hepatic encephalopathy vs chronic alcohol effects based on imaging. Last ammonia normal at 10. LFTs improving but clinically more jaundiced today. Persistent liver failure in the setting of alcoholic cirrhosis. Acidosis improved. Off pressors and sedation since 07/05. PLAN: [employer]: This AM RASS score -1. Responds to vocal stimuli, follows commands, attempting to verbalize and moving head and extremities MS changes consistent with moderate-severe encephalopathy likely in the setting of sepsis vs. hepatic encephalopathy vs chronic alcohol effects based on imaging. MRI abnormal on 07/08 with multiple symmetric midline legions consistent with metabolic encephalopathy vs. chronic alcohol b use CT 07/06 no acute IC pathology EEG 07/06 no epileptiform activity Neurology consulted - subclinical seizure unlikely, mental status changes likely from metabolic encephalopathy vs. alcohol related; at high risk for seizures (will monitor) Off fentanyl since 07/05 Off Versed since 0500 07/04 Dced BIS monitor and Nimbex at 1200 on 07/03 CVS: BP normalized. 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 No intervention at this time. SMA/LISBET patent. Hypervolemic +38L PULM: Improving acute lung injury. Bronchoscopy performed to clear bronchial secretions on 07/10 On 4L NC, extubated on 07/11 CXR 07/09: no pneumothorax, cardiomegaly with volume overload, mild pulm edema, small layering pleural effusion Pulm Toilet: alubterol 4 puffs Q4H; Atrovent 4 puffs Q4H Dced Methylpred 40mg Q12H (given WBC elevation to ensure not masking worsening infection) on 07/09 RENAL/METABOLIC: renal function at baseline Cr ~ 1; Cr today 1.1 with worsening BUN of 78 in the setting of Lasix gtt. Improving urine output Volume overloaded by +38L Increased Lasix drip to 15mg/hr ID: Sepsis 05/25 C. diff vs PNA Abdominal CT 07/06: small pleural effusion and dense bibasilar consolidation; diffuse ground glass; diffuse anasarca body wall increased from 06/29; small volume of amniopelvic ascites increased from 06/29; hepatomegaly with severe hepatic steatosis; mild peripancreatic stranding/fluid. CXR 07/09: no pneumothorax, cardiomegaly with volume overload, mild pulm edema, small layering pleural effusion procal 1.67 on 07/06 Blood culture from 07/01 no growth Fungal gram stain and culture - no yeast or fungus Repeat sputum gram stain and culture - marisol albicans C.diff Abx regimen: Continue Vanc PO 500mg day 13; Flagyl 500mg Q8H IV day 11 Continue caspofungin 50mg Q4H IV day 4 Received Aztreonam, Linezolid, and Levofloxacin x 3 days Received Vanc [place] x 4 days Received Cefepime x 5 days Received IV vanc x 3 days ENDO: SSI goal 120-160 CF 25; blood sugars in 100s-120s range HEME: Anemia stable H/H 7.6/24.3; plt ct improving 64 to 74 No evidence of bleeding Heparin PF4 Ab - neg Dced heparin for concern of HIT 2 Monitor CBC Consider transfusing once Hgb < 7 Electrolytes: Low Ca 8.1 (corrected 9.4 given albumin of 1.8), Mag 1.8 and Phos 4.1) Nutrition: Dced TPN; passed swallow eval; will work on PO intake Thiamine 500mg Folic Acid GI: Off TPN, NG intact, will attempt to increase PO intake given passed swallow eval Persistent liver failure; LFT improving MELD score 20 (19.6% mortality risk); Child-Burns score of 11 (class C) Continue recurrent C.diff Colitis treatment: Vanc PO day 13; Flagyl IV day 11 Consulted surgery: high mortality risk for total colectomy at this time GI prophylaxis: Protonix 40mg IV BID IV access: Placed R IJ central venous cath 07/09 Placed R arm PICC line 07/05 Removed L femoral tri-lumen central venous cath and kyle 07/05 DVT Prophylaxis: SCDs CCT: 45 minutes independent of procedures Thank you for including us in the care of this patient. Please refer to Dr. Gonzalez's addendum for further recommendations. Attending addendum: The patient was seen, examined independently, agree with assessment and plan of my colleague Dr. Horton. The patient continued to improve over the past 24 hours as well. She remains extubated. She is tolerating oral intake according to speech pathology. The patient will be started also on oral intake and if it is tolerable, the NG tube will stop. Currently will continue with NG tube and keep the tube feeding ongoing. Continue with diuresis using Lasix drip, the patient BUN has increased but her creatinine has been stable. The rise in her BUN likely related to TPN. Also, continue Vanco orally. Physical therapy and out of bed. Case discussed with the staff on rounds and details, critical care time spent with the patient was 45 minutes. Discussed also with GI, appreciate their input. Assessment and plan on July 13, 2017, the patient is recovering from ARDS, acute respiratory failure, liver cirrhosis as well as acute kidney insufficiency. She remains with anasarca, she does have malnutrition as well as deconditioning due to prolonged hospitalization. I will continue with her current treatment including nutrition with Impact via the NG tube to goal as well as starting her on oral intake if she tolerated. We will stop TPN. Continue with vancomycin in the NG tube, tapering the Vanco protocol will be deferred to GI service. Appreciate their input. I will continue Lasix drip as the patient creatinine remains at 1. Physical therapy and out of bed if possible. The patient can be transferred to regular floor with telemetry however she would need LTAC for prolonged period of time. Case discussed with the staff on rounds and details. Critical care time spent with the patient was 45 minutes. Consults & Procedures Consultants: GI: Dr Joseph Vascular: Dr Baron General Surgery: Dr. Choe IV team for PICC line Procedures: 07/01/17: left femoral TLC 07/01/17: left femoral a-line 07/01/17: intubation 07/09/17: R IJ placement Data Medications: Current Inpatient Medications Medications (Trade) Dose Ordered Sig/Razia Route Start Time Stop Time Status Last Admin Dose Admin Pantoprazole Sodium 40 mg/ Syringe 10 ml @ 5 mls/min BID IV 06/27/17 09:00 07/27/17 08:59 07/13/17 09:06 5 MLS/MIN Ondansetron HCl (Zofran Inj) 4 mg Q6H PRN IV 06/27/17 17:46 07/27/17 17:45 Albuterol/ Ipratropium (Duoneb) 3 ml Q4 PRN INH 07/01/17 05:30 07/31/17 05:29 Future Hold 07/01/17 10:06 3 ML Artificial Tears (Lacri-Lube Oph Oint) 1 appln Q2H PRN OPB 07/02/17 21:45 08/01/17 21:44 Heparin Sodium (Porcine) (Heparin 10 Unit/ ml 5 ml Flush) 5 ml PRN PRN FLUSH 07/04/17 20:45 08/03/17 20:44 07/13/17 13:09 5 ML Metronidazole 500 mg/Prmx 100 ml @ 100 mls/hr Q8H IV 07/09/17 12:00 07/23/17 11:59 07/13/17 11:34 100 MLS/HR Furosemide 100 mg/ Dextrose 100 ml @ 15 mls/hr Q6H40M IV 07/09/17 11:15 08/08/17 11:14 07/13/17 11:33 15 MLS/HR Dextrose 1,000 ml @ 0 mls/hr Q0M PRN IV 07/09/17 13:47 08/08/17 13:46 Glucose (Glucose 40% Gel) 15-30 GRAMS 15 GRAMS... UD PRN PO 07/09/17 14:45 08/08/17 14:44 Glucose (Glucose Chew Tab) 4-8 Tablets 4 Tabl... UD PRN PO 07/09/17 14:45 08/08/17 14:44 Dextrose (Dextrose 50% 50ML Syringe) 25-50ML OF 50% DW IV FOR... UD PRN IV 07/09/17 14:45 08/08/17 14:44 07/09/17 14:20 25 ML Glucagon (Glucagon Inj) 1 mg UD PRN SQ 07/09/17 14:45 08/08/17 14:44 Caspofungin 50 mg/ Sodium Chloride 110 ml @ 110 mls/hr Q24H IV 07/12/17 11:00 08/08/17 10:59 07/13/17 11:53 110 MLS/HR Insulin Aspart (novoLOG ASPART) SLIDING SCALE Q4 SC 07/11/17 16:00 08/10/17 15:59 Vancomycin HCl (Vancomycin Oral Soln) 500 mg Q6H PO 07/12/17 16:00 07/22/17 15:59 07/13/17 10:03 500 MG Albuterol/ Ipratropium (Duoneb) 3 ml QIDR INH 07/11/17 20:00 08/10/17 19:59 07/13/17 11:17 3 ML Enteral Nutritional Formula (Peptamen 1.5) 1,000 ml UD PRN NG 07/12/17 09:15 08/11/17 09:14 07/12/17 23:45 1,000 ML Thiamine HCl 200 mg/Sodium Chloride 52 ml @ 208 mls/hr BID IV 07/13/17 09:00 08/12/17 08:59 07/13/17 09:07 208 MLS/HR Multivitamins/ Minerals (Multivitamin W/ Minerals Tab) 1 tab QAM PO 07/13/17 09:00 08/12/17 08:59 07/13/17 09:07 1 TAB Folic Acid 1 mg/ Syringe 10 ml @ 5 mls/min QAM IV 07/13/17 09:00 08/12/17 08:59 07/13/17 09:06 5 MLS/MIN Potassium Chloride (Coreen Ciel Elix) 40 meq BID PO 07/13/17 09:00 08/12/17 08:59 07/13/17 09:10 40 MEQ I & O: 24-Hour Column 07/14/17 07:59 Intake Total 1036 ml Output Total 1200 ml Balance -164 ml Vital Signs: Date Time Temp Pulse Resp B/P (MAP) Pulse Ox O2 Delivery O2 Flow Rate FiO2 07/13/17 14:00 91 18 106/62 (77) 96 Nasal Cannula 2.0 07/13/17 12:00 90 Room Air 07/13/17 12:00 36.5 95 15 107/62 (77) 90 Room Air 07/13/17 11:17 89 16 98 Nasal Cannula 4.0 07/13/17 10:00 89 20 100/65 (77) 99 Nasal Cannula 2.0 07/13/17 09:02 86 20 102/66 (78) 98 Nasal Cannula 2.0 07/13/17 08:00 Nasal Cannula 07/13/17 08:00 97 Nasal Cannula 2.0 07/13/17 08:00 93 16 90/62 (71) 99 Nasal Cannula 2.0 07/13/17 07:29 85 16 99 Nasal Cannula 4.0 07/13/17 06:01 89 23 108/71 (83) 100 Nasal Cannula 2.0 07/13/17 04:01 36.7 91 21 87/50 (62) 93 Nasal Cannula 2.0 07/13/17 04:00 97 Nasal Cannula 2.0 07/13/17 02:01 91 14 105/67 (80) 93 Nasal Cannula 2.0 07/13/17 00:01 36.8 90 20 108/68 (81) 93 Nasal Cannula 2.0 07/12/17 23:59 97 Nasal Cannula 2.0 07/12/17 22:01 87 24 104/56 (72) 97 Nasal Cannula 2.0 07/12/17 20:01 36.9 99 26 92/61 (71) 94 Nasal Cannula 2.0 07/12/17 20:00 97 Nasal Cannula 2.0 07/12/17 18:53 95 16 94 Nasal Cannula 4.0 07/12/17 18:00 95 20 94/61 (72) 96 Nasal Cannula 2.0 07/12/17 16:43 85 16 94 Nasal Cannula 4.0 07/12/17 16:00 36.9 90 17 93/54 (67) 97 Nasal Cannula 2.0 07/12/17 16:00 Nasal Cannula 4.0 Laboratory Results: Last 24 Hours Test 07/12/17 16:18 07/12/17 19:56 07/12/17 23:46 07/13/17 03:55 Bedside Glucose 107 mg/dl 119 mg/dl 139 mg/dl 129 mg/dl Test 07/13/17 05:44 07/13/17 11:32 White Blood Count 15.65 K/uL Red Blood Count 2.06 M/uL Hemoglobin 7.4 g/dL Hematocrit 23.4 % Mean Corpuscular Volume 113.6 fL Mean Corpuscular Hemoglobin 35.9 pg Mean Corpuscular Hemoglobin Concent 31.6 g/dl RDW Standard Deviation 124.7 fL RDW Coefficient of Variation 30.9 % Platelet Count 84 K/uL Mean Platelet Volume 12.3 fL Nucleated RBC Absolute Count (auto) 0.18 K/uL Nucleated Red Blood Cells % 1.1 % Platelet Estimate DECREASED Sodium Level 144 mmol/L Potassium Level 3.4 mmol/L Chloride Level 112 mmol/L Carbon Dioxide Level 21 mmol/L Anion Gap 11.0 mmol/L Blood Urea Nitrogen 80 mg/dl Creatinine 1.00 mg/dl Est Creatinine Clear Calc Drug Dose 81.7 ml/min Estimated GFR () 75.0 Estimated GFR (Non- 64.7 BUN/Creatinine Ratio 80.0 Random Glucose 126 mg/dl Calcium Level 8.3 mg/dl Phosphorus Level 3.9 mg/dl Magnesium Level 1.7 mg/dl Albumin 1.8 gm/dl Bedside Glucose 141 mg/dl
--- NOTE | 2017-07-13 18:18 | Infectious Disease Progress Nt ---
Progress Note Date of Service Jul 13, 2017. Subjective Pt evaluation today including: conversation w/ patient, physical exam, chart review, lab review, review of studies, conversation w/ organizational development consultant, review of inpatient medication list Patient is somewhat more alert today. Extubated and hemodynamically stable with no increased respiratory distress. Remains afebrile. All Other Systems: Reviewed and Negative Medications Current Inpatient Medications Medications (Trade) Dose Ordered Sig/Razia Route Start Time Stop Time Status Last Admin Dose Admin Pantoprazole Sodium 40 mg/ Syringe 10 ml @ 5 mls/min BID IV 06/27/17 09:00 07/27/17 08:59 07/13/17 09:06 5 MLS/MIN Ondansetron HCl (Zofran Inj) 4 mg Q6H PRN IV 06/27/17 17:46 07/27/17 17:45 Albuterol/ Ipratropium (Duoneb) 3 ml Q4 PRN INH 07/01/17 05:30 07/31/17 05:29 Future Hold 07/01/17 10:06 3 ML Artificial Tears (Lacri-Lube Oph Oint) 1 appln Q2H PRN OPB 07/02/17 21:45 08/01/17 21:44 Heparin Sodium (Porcine) (Heparin 10 Unit/ ml 5 ml Flush) 5 ml PRN PRN FLUSH 07/04/17 20:45 08/03/17 20:44 07/13/17 13:09 5 ML Metronidazole 500 mg/Prmx 100 ml @ 100 mls/hr Q8H IV 07/09/17 12:00 07/23/17 11:59 07/13/17 11:34 100 MLS/HR Furosemide 100 mg/ Dextrose 100 ml @ 15 mls/hr Q6H40M IV 07/09/17 11:15 08/08/17 11:14 07/13/17 11:33 15 MLS/HR Dextrose 1,000 ml @ 0 mls/hr Q0M PRN IV 07/09/17 13:47 08/08/17 13:46 Glucose (Glucose 40% Gel) 15-30 GRAMS 15 GRAMS... UD PRN PO 07/09/17 14:45 08/08/17 14:44 Glucose (Glucose Chew Tab) 4-8 Tablets 4 Tabl... UD PRN PO 07/09/17 14:45 08/08/17 14:44 Dextrose (Dextrose 50% 50ML Syringe) 25-50ML OF 50% DW IV FOR... UD PRN IV 07/09/17 14:45 08/08/17 14:44 07/09/17 14:20 25 ML Glucagon (Glucagon Inj) 1 mg UD PRN SQ 07/09/17 14:45 08/08/17 14:44 Caspofungin 50 mg/ Sodium Chloride 110 ml @ 110 mls/hr Q24H IV 07/12/17 11:00 08/08/17 10:59 07/13/17 11:53 110 MLS/HR Insulin Aspart (novoLOG ASPART) SLIDING SCALE Q4 SC 07/11/17 16:00 08/10/17 15:59 Vancomycin HCl (Vancomycin Oral Soln) 500 mg Q6H PO 07/12/17 16:00 07/22/17 15:59 07/13/17 16:43 500 MG Albuterol/ Ipratropium (Duoneb) 3 ml QIDR INH 07/11/17 20:00 08/10/17 19:59 07/13/17 14:57 3 ML Thiamine HCl 200 mg/Sodium Chloride 52 ml @ 208 mls/hr BID IV 07/13/17 09:00 08/12/17 08:59 07/13/17 09:07 208 MLS/HR Multivitamins/ Minerals (Multivitamin W/ Minerals Tab) 1 tab QAM PO 07/13/17 09:00 08/12/17 08:59 07/13/17 09:07 1 TAB Folic Acid 1 mg/ Syringe 10 ml @ 5 mls/min QAM IV 07/13/17 09:00 08/12/17 08:59 07/13/17 09:06 5 MLS/MIN Potassium Chloride (Coreen Ciel Elix) 40 meq BID PO 07/13/17 09:00 08/12/17 08:59 07/13/17 09:10 40 MEQ Enteral Nutritional Formula (Peptamen 1.5) 1,000 ml DAILY@1900 NG 07/13/17 19:00 08/12/17 18:59 Miscellaneous (Stop Order) 1 ea DAILY@0700 N/A 07/14/17 07:00 08/13/17 06:59 Objective Vital Signs Date Time Temp Pulse Resp B/P (MAP) Pulse Ox O2 Delivery O2 Flow Rate FiO2 07/13/17 17:17 96 19 107/69 (82) 99 Nasal Cannula 2.0 07/13/17 16:00 36.8 89 27 98 Nasal Cannula 2.0 07/13/17 16:00 90 Nasal Cannula 2.0 07/13/17 14:57 89 16 98 Nasal Cannula 4.0 07/13/17 14:00 91 18 106/62 (77) 96 Nasal Cannula 2.0 07/13/17 12:00 90 Room Air 07/13/17 12:00 36.5 95 15 107/62 (77) 90 Room Air 07/13/17 11:17 89 16 98 Nasal Cannula 4.0 07/13/17 10:00 89 20 100/65 (77) 99 Nasal Cannula 2.0 07/13/17 09:02 86 20 102/66 (78) 98 Nasal Cannula 2.0 07/13/17 08:00 Nasal Cannula 07/13/17 08:00 97 Nasal Cannula 2.0 07/13/17 08:00 93 16 90/62 (71) 99 Nasal Cannula 2.0 07/13/17 07:29 85 16 99 Nasal Cannula 4.0 07/13/17 06:01 89 23 108/71 (83) 100 Nasal Cannula 2.0 07/13/17 04:01 36.7 91 21 87/50 (62) 93 Nasal Cannula 2.0 07/13/17 04:00 97 Nasal Cannula 2.0 07/13/17 02:01 91 14 105/67 (80) 93 Nasal Cannula 2.0 07/13/17 00:01 36.8 90 20 108/68 (81) 93 Nasal Cannula 2.0 07/12/17 23:59 97 Nasal Cannula 2.0 07/12/17 22:01 87 24 104/56 (72) 97 Nasal Cannula 2.0 07/12/17 20:01 36.9 99 26 92/61 (71) 94 Nasal Cannula 2.0 07/12/17 20:00 97 Nasal Cannula 2.0 07/12/17 18:53 95 16 94 Nasal Cannula 4.0 Physical Exam General Appearance: no apparent distress, + pertinent finding (Chronically ill- appearing) Eyes: EOMI, + abnormal sclerae exam (icteric) ENT: pharynx normal, + pertinent finding (Endotracheal and feeding tube in place) Neck: supple, no adenopathy, thyroid normal, trachea midline Respiratory/Chest: chest non-tender, lungs clear, normal breath sounds, no respiratory distress Cardiovascular: regular rate, rhythm, no gallop, no murmur Abdomen: normal bowel sounds, soft, + distended, + tenderness, + hepatomegaly Extremities: non-tender, no calf tenderness, normal capillary refill Neurologic/Psychiatric: alert, + pertinent finding (Response to voice) Skin: normal color, warm/dry, no rash Lymphatic: no adenopathy Laboratory Results Last 24 Hours Test 07/12/17 19:56 07/12/17 23:46 07/13/17 03:55 07/13/17 05:44 Bedside Glucose 119 mg/dl 139 mg/dl 129 mg/dl White Blood Count 15.65 K/uL Red Blood Count 2.06 M/uL Hemoglobin 7.4 g/dL Hematocrit 23.4 % Mean Corpuscular Volume 113.6 fL Mean Corpuscular Hemoglobin 35.9 pg Mean Corpuscular Hemoglobin Concent 31.6 g/dl RDW Standard Deviation 124.7 fL RDW Coefficient of Variation 30.9 % Platelet Count 84 K/uL Mean Platelet Volume 12.3 fL Nucleated RBC Absolute Count (auto) 0.18 K/uL Nucleated Red Blood Cells % 1.1 % Platelet Estimate DECREASED Sodium Level 144 mmol/L Potassium Level 3.4 mmol/L Chloride Level 112 mmol/L Carbon Dioxide Level 21 mmol/L Anion Gap 11.0 mmol/L Blood Urea Nitrogen 80 mg/dl Creatinine 1.00 mg/dl Est Creatinine Clear Calc Drug Dose 81.7 ml/min Estimated GFR () 75.0 Estimated GFR (Non- 64.7 BUN/Creatinine Ratio 80.0 Random Glucose 126 mg/dl Calcium Level 8.3 mg/dl Phosphorus Level 3.9 mg/dl Magnesium Level 1.7 mg/dl Albumin 1.8 gm/dl Test 07/13/17 11:32 07/13/17 16:42 Bedside Glucose 141 mg/dl 143 mg/dl Assessment and Plan 52-year-old female critically ill with ischemic colitis versus C difficile infection, probable ARDS with respiratory failure,. White count has improved with addition of caspofungin, suggests possibility of disseminated fungal infection. Would give empiric 10 day course if cultures remain negative. Continue vancomycin for C difficile infection. Will follow.
[2017-07-13] MEDS: PEPTAMEN 1.5 CAL 1000ML BAG NG SCH (18:36)
--- NOTE | 2017-07-13 19:01 | GASTROENTEROLOGY PROGRESS NOTE ---
DATE: 07/13/2017 SUBJECTIVE: The chart reviewed, patient examined. The patient is sitting in the chair, more alert, knows that it is [facility], although cannot recall the year, month or upcoming holiday. OBJECTIVE: VITAL SIGNS: Today at the present time, the patient is afebrile at 36.8, blood pressure 107/69, respirations 19, heart rate 96, 2 liters nasal cannula at 99%. HEENT: Sclerae are anicteric, conjunctiva moist. Oral mucosa moist. HEART: Normal S1, S2. LUNGS: Clear to auscultation. ABDOMEN: Minimally tender, obese without rebound or guarding. Positive bowel sounds are noted. EXTREMITIES: There is +3 pitting edema bilaterally. RECTAL: Deferred. The patient did have success with swallowing and is eating some of her meal. MEDICATIONS: Reviewed and include Peptamen solution, thiamine, multivitamins and minerals, folic acid, potassium supplements, vancomycin 500 mg oral q. 6 for C. diff colitis, caspofungin 50 mg IV q. 24, DuoNebs, insulin, Flagyl 500 mg q. 8, furosemide, Zofran and pantoprazole 40 mg twice daily. REVIEW OF SYSTEMS: Review of systems are unobtainable. LABORATORY STUDIES: The patient's white count is down to 15.6 from 22.17 yesterday. Hemoglobin is overall stable at 7.4, platelets 84,000. Serum chemistry: Potassium 3.4, sodium 144. BUN and creatinine are 80 and 1.0. Albumin 1.8. Yesterday's LFTs showed total bilirubin 3.7, AST 6, ALT 33, alkaline phosphatase 220. There are no new imaging studies since 07/11/2017. ALLERGIES: LISTED IN THE CHART INCLUDING PENICILLIN, SULFA, CODEINE, INDOMETHACIN AND IODINE. IMPRESSION: The patient with treatment of Clostridium difficile since May 30 at approximately admission. At this point, 14 days of dual and triple therapy with vancomycin orally, Flagyl IV, and vancomycin enemas have been performed. I believe it is reasonable to begin a vancomycin taper with 250 mg t.i.d. for 5 days and reduce this every 5 days until vancomycin is completed. IV Flagyl can be continued in the interim. PLAN: Regarding the patient's current mental status and cognitive function, it may be reasonable to check an ammonia level and consider neurology consult if not recently performed. EEG may be beneficial. There are some changes on the CT scan as Dr. Soares had discussed with me in a short time ago and perhaps this would benefit from neurology assessment as well. We would continue nutrition, mineral and vitamin replacements as well as thiamine, folic acid. RECOMMENDATIONS: Continue to advance diet with calorie counts. We will continue to follow with you. Hopefully, patient could be transferred to an intermediate setting over the next several days. Dr. Beck will be covering the service over the weekend.
[2017-07-14] VITALS (28 sets, daily range): BP systolic 98–135; BP diastolic 66–94; PULSE 77–95; TEMP 36.5–36.7; O2SAT 92–100
[2017-07-14] MEDS: FUROSEMIDE INJ 100 MG in DEXTROSE 5% 100ML 90 ML IV SCH ×2 (00:07→06:19)
--- NOTE | 2017-07-14 00:12 | Progress Note ---
Subjective Date of Service: Jul 13, 2017. Subjective Pt evaluation today including: physical exam, chart review, lab review, review of studies (MRI brain, etc), conversation w/ advertising sales consultant (GI, critical care), review of inpatient medication list Pain: when asked she just stares at me PO Intake: minimal; mostly NG tube feedings Voiding: gil catheter in place tele stable overnight patient sitting in chair by the bedside she is awake, but slow to answer questions, and could not tell me where she was unable to elicit ROS due to altered MS Problem List Medical Problems: (1) Abdominal pain Status: Acute (2) Acute pancreatitis Status: Acute (3) Alcohol abuse Status: Acute (4) Alcohol intoxication Status: Acute (5) Anemia Status: Acute (6) Anemia Status: Acute (7) Biliary obstruction Status: Acute (8) C. difficile colitis Status: Acute (9) C. difficile diarrhea Status: Acute (10) Chest pain Status: Acute (11) Contusion of multiple sites Status: Acute (12) Dehydration Status: Acute (13) Dehydration Status: Acute (14) Encounter for smoking cessation counseling Status: Acute (15) Epigastric abdominal pain Status: Acute (16) Fall Status: Acute (17) Fall due to slipping on ice or snow Status: Acute (18) Fracture of left distal radius Status: Acute (19) Hypocalcemia Status: Acute (20) Hypomagnesemia Status: Acute (21) Hypomagnesemia Status: Acute (22) Hypotension Status: Acute (23) Lactic acidosis Status: Acute (24) Liver failure Status: Acute (25) Pancreatitis Status: Acute Objective Vital Signs Date Time Temp Pulse Resp B/P (MAP) Pulse Ox O2 Delivery O2 Flow Rate FiO2 07/13/17 18:00 36.8 95 14 128/69 (88) 99 Nasal Cannula 2.0 07/13/17 17:17 96 19 107/69 (82) 99 Nasal Cannula 2.0 07/13/17 16:00 36.8 89 27 98 Nasal Cannula 2.0 07/13/17 16:00 90 Nasal Cannula 2.0 07/13/17 14:57 89 16 98 Nasal Cannula 4.0 07/13/17 14:00 91 18 106/62 (77) 96 Nasal Cannula 2.0 07/13/17 12:00 90 Room Air 07/13/17 12:00 36.5 95 15 107/62 (77) 90 Room Air 07/13/17 11:17 89 16 98 Nasal Cannula 4.0 07/13/17 10:00 89 20 100/65 (77) 99 Nasal Cannula 2.0 07/13/17 09:02 86 20 102/66 (78) 98 Nasal Cannula 2.0 07/13/17 08:00 Nasal Cannula 07/13/17 08:00 97 Nasal Cannula 2.0 07/13/17 08:00 93 16 90/62 (71) 99 Nasal Cannula 2.0 07/13/17 07:29 85 16 99 Nasal Cannula 4.0 07/13/17 06:01 89 23 108/71 (83) 100 Nasal Cannula 2.0 07/13/17 04:01 36.7 91 21 87/50 (62) 93 Nasal Cannula 2.0 07/13/17 04:00 97 Nasal Cannula 2.0 07/13/17 02:01 91 14 105/67 (80) 93 Nasal Cannula 2.0 07/13/17 00:01 36.8 90 20 108/68 (81) 93 Nasal Cannula 2.0 07/12/17 23:59 97 Nasal Cannula 2.0 07/12/17 22:01 87 24 104/56 (72) 97 Nasal Cannula 2.0 Physical Exam General Appearance: no apparent distress, + pertinent finding (chronically ill appearing, sickly ) Eyes: + abnormal sclerae exam (mild icterus) ENT: + pertinent finding (MM mildly dry) Neck: no JVD Respiratory/Chest: + decreased breath sounds (bases), + rales, + wheezing Cardiovascular: regular rate, rhythm, no gallop Abdomen: normal bowel sounds, + distended, + hepatomegaly Extremities: + pedal edema (severe, 3-4+ b/l), + swelling Neurologic/Psychiatric: + disoriented, + pertinent finding (sleepy/groggy) Laboratory Results Last 24 Hours Test 07/12/17 23:46 07/13/17 03:55 07/13/17 05:44 07/13/17 11:32 Bedside Glucose 139 mg/dl 129 mg/dl 141 mg/dl White Blood Count 15.65 K/uL Red Blood Count 2.06 M/uL Hemoglobin 7.4 g/dL Hematocrit 23.4 % Mean Corpuscular Volume 113.6 fL Mean Corpuscular Hemoglobin 35.9 pg Mean Corpuscular Hemoglobin Concent 31.6 g/dl RDW Standard Deviation 124.7 fL RDW Coefficient of Variation 30.9 % Platelet Count 84 K/uL Mean Platelet Volume 12.3 fL Nucleated RBC Absolute Count (auto) 0.18 K/uL Nucleated Red Blood Cells % 1.1 % Platelet Estimate DECREASED Sodium Level 144 mmol/L Potassium Level 3.4 mmol/L Chloride Level 112 mmol/L Carbon Dioxide Level 21 mmol/L Anion Gap 11.0 mmol/L Blood Urea Nitrogen 80 mg/dl Creatinine 1.00 mg/dl Est Creatinine Clear Calc Drug Dose 81.7 ml/min Estimated GFR () 75.0 Estimated GFR (Non- 64.7 BUN/Creatinine Ratio 80.0 Random Glucose 126 mg/dl Calcium Level 8.3 mg/dl Phosphorus Level 3.9 mg/dl Magnesium Level 1.7 mg/dl Albumin 1.8 gm/dl Test 07/13/17 16:42 07/13/17 20:16 Bedside Glucose 143 mg/dl 150 mg/dl Assessment and Plan 52yo female with: 1. recent septic shock 2nd to pneumonia and c. diff colitis - resolved. 2. pneumonia, possibly due to marisol albicans or gram negative etiology - completed copious amounts of IV antibiotics for gram neg etiology; now remains on caspofungin, day # 5/10, for marisol. 3. 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 Will reinstitute thiamine 200mg IV BID, MVI, and folic acid. Check TSH in am (last TSH 10/07 was wnl). 4. severe c. diff colitis - recurrent - on slow vancomycin wean and IV flagyl. 5. acute hypoxic respiratory failure 2nd to pneumonia/ARDS - resolving, was on vent and successfully extubated; remains on NC O2. 6. acute alcoholic hepatitis - LFTs slowly normalizing; GI following; repeat LFTs & ammonia in am. 7. hypokalemia & hypomagnesemia - replace, repeat levels am. 8. chronic anemia - possibly due in part from chronic GI blood loss - Tx if Hb < 7. 9. thrombocytopenia - likely due to toxic effects from etoh and also from liver disease - daily CBC for stability. HIT ab negative. 10. significant prerenal azotemia - remains on lasix drip to severe anasarca. Appears BUN rising with diuresis. Defer management to critical care. 11. severe protein calorie malnutrition - NG tube feedings being advanced slowly. 12. h/o HTN - controlled off of anti-hypertensives. 13. coagulopathy - 2nd to #6 - resolved. 14. DVT proph - SCDs; chemical means contraindicated due to #9. DNR PT, OT, speech following poor prognosis will need SNF placement following discharge Continued [facility] stay due to: multiple IV medications needed Discharge planning: uncertain
[2017-07-14] MEDS: INSULIN ASPART 100 UNITS/ML 3 ML PEN SC SCH ×6 (03:55→20:00)
[2017-07-14] MEDS: VANCOMYCIN HCL 500 MG/10ML SOLN PO SCH ×4 (03:55→21:57)
[2017-07-14] MEDS: METRONIDAZOLE / NSS 500 MG in PREMIXED NSS 100 ML IV SCH ×3 (03:55→20:00)
[2017-07-14 06:15] LABS: BASO % 0.2 %; BASO ABS # 0.03 K/uL (0-0.2); EOS % 1.6 %; EOS ABS # 0.19 K/uL (0-0.5); HEMOGLOBIN 7.4 g/dL (12.0-16.0); IG# 0.26 K/uL (0.00-0.02); LYMPH % 2.7 %; LYMPH ABS # 0.33 K/uL (1.2-3.4); MEAN CELL VOLUME 115.4 fL (80-100); MEAN CORPUSCULAR HEMOGLOBIN 35.6 pg (25-34); MEAN CORPUSCULAR HGB CONC 30.8 g/dl (32-36); MEAN PLATELET VOLUME 12.5 fL (7.4-10.4); MONO % 8.7 %; MONO ABS # 1.05 K/uL (0.11-0.59); NEUT % 84.7 %; NEUT ABS # 10.24 K/uL (1.4-6.5); NUCLEATED RED BLOOD CELL ABS 0.05 K/uL (0-0); PLATELET COUNT 109 K/uL (130-400); RED CELL DISTRIBUTION WIDTH CV 31.9 % (11.5-14.5); RED CELL DISTRIBUTION WIDTH SD 129.7 fL (36.4-46.3)
[2017-07-14 06:17] LABS: INR 1.1 (0.9-1.1)
[2017-07-14 06:23] LABS: ALBUMIN 1.7 gm/dl (3.4-5.0); CALCIUM 8.3 mg/dl (8.5-10.1); CREATININE 1.08 mg/dl (0.60-1.20); POTASSIUM 3.7 mmol/L (3.5-5.1)
[2017-07-14 06:34] LABS: TOTAL PROTEIN 5.2 gm/dl (6.4-8.2)
[2017-07-14] MEDS: [UNRECOGNIZED DRUG - REMARK] SCH (07:02)
[2017-07-14] MEDS: ALBUT/IPRATROP 3MG/0.5MG NEB 3 ML VIAL INH SCH ×4 (07:33→19:59)
[2017-07-14] MEDS: POTASSIUM CHLORIDE 20 MEQ/15 ML UDC PO SCH ×2 (08:34→20:16)
[2017-07-14] MEDS: PANTOprazole INJ 40 MG in SYRINGE 0 ML IV SCH ×2 (08:35→19:59)
[2017-07-14] MEDS: CEROVITE ADV FORMULA TAB PO SCH (08:35)
[2017-07-14] MEDS: FoLIC ACID INJ 1 MG in SYRINGE 9.8 ML IV SCH (08:35)
[2017-07-14] MEDS: THIAMINE HCL INJ 200 MG in SODIUM CHLORIDE 0.9% 50ML 50 ML IV SCH ×2 (08:36→19:59)
[2017-07-14] MEDS: MAGNESIUM SULFATE 1GM / D5W 1 GM in PREMIXED IN D5W 100 ML IV SCH ×2 (10:38→11:37)
[2017-07-14] MEDS: CASPOFUNGIN INJ 50 MG in SODIUM CHLORIDE 0.9% 100ML 100 ML IV SCH (10:42)
--- NOTE | 2017-07-14 12:38 | Gastroenterology Progress Note ---
Progress Note Date of Service: Jul 14, 2017 Subjective Pt evaluation today including: conversation w/ patient, conversation w/ family (mother and daugther Chloe), physical exam, chart review, lab review, review of studies, review of inpatient medication list CC f/u ETOH hepatitis, Cdiff HPI Discussed with nurse and patient. Pt denies abd pain. Seems somewhat SOB. Will not answer about chest pain. Per nurse having 3-4 loose stools in 24 hours appropriate for tube feeds. She did better appetite esquivel with continuous tube feeds versus o/n tube feeds. Review of Systems see HPI Medications Current Inpatient Medications Medications (Trade) Dose Ordered Sig/Razia Route Start Time Stop Time Status Last Admin Dose Admin Pantoprazole Sodium 40 mg/ Syringe 10 ml @ 5 mls/min BID IV 06/27/17 09:00 07/27/17 08:59 07/14/17 08:35 5 MLS/MIN Ondansetron HCl (Zofran Inj) 4 mg Q6H PRN IV 06/27/17 17:46 07/27/17 17:45 Albuterol/ Ipratropium (Duoneb) 3 ml Q4 PRN INH 07/01/17 05:30 07/31/17 05:29 Future Hold 07/01/17 10:06 3 ML Heparin Sodium (Porcine) (Heparin 10 Unit/ ml 5 ml Flush) 5 ml PRN PRN FLUSH 07/04/17 20:45 08/03/17 20:44 07/13/17 13:09 5 ML Metronidazole 500 mg/Prmx 100 ml @ 100 mls/hr Q8H IV 07/09/17 12:00 07/23/17 11:59 07/14/17 11:38 100 MLS/HR Glucose (Glucose 40% Gel) 15-30 GRAMS 15 GRAMS... UD PRN PO 07/09/17 14:45 08/08/17 14:44 Glucose (Glucose Chew Tab) 4-8 Tablets 4 Tabl... UD PRN PO 07/09/17 14:45 08/08/17 14:44 Dextrose (Dextrose 50% 50ML Syringe) 25-50ML OF 50% DW IV FOR... UD PRN IV 07/09/17 14:45 08/08/17 14:44 07/09/17 14:20 25 ML Glucagon (Glucagon Inj) 1 mg UD PRN SQ 3/19/18 14:45 08/08/17 14:44 Caspofungin 50 mg/ Sodium Chloride 110 ml @ 110 mls/hr Q24H IV 07/12/17 11:00 08/08/17 10:59 07/14/17 10:42 110 MLS/HR Insulin Aspart (novoLOG ASPART) SLIDING SCALE Q4 SC 07/11/17 16:00 08/10/17 15:59 Vancomycin HCl (Vancomycin Oral Soln) 500 mg Q6H PO 07/12/17 16:00 07/22/17 15:59 07/14/17 10:00 500 MG Albuterol/ Ipratropium (Duoneb) 3 ml QIDR INH 07/11/17 20:00 08/10/17 19:59 07/14/17 11:15 3 ML Thiamine HCl 200 mg/Sodium Chloride 52 ml @ 208 mls/hr BID IV 07/13/17 09:00 08/12/17 08:59 07/14/17 08:36 208 MLS/HR Multivitamins/ Minerals (Multivitamin W/ Minerals Tab) 1 tab QAM PO 07/13/17 09:00 08/12/17 08:59 07/14/17 08:35 1 TAB Folic Acid 1 mg/ Syringe 10 ml @ 5 mls/min QAM IV 07/13/17 09:00 08/12/17 08:59 07/14/17 08:35 5 MLS/MIN Potassium Chloride (Coreen Ciel Elix) 40 meq BID PO 07/13/17 09:00 08/12/17 08:59 07/14/17 08:34 40 MEQ Enteral Nutritional Formula (Peptamen 1.5) 1,000 ml DAILY@1900 NG 07/13/17 19:00 08/12/17 18:59 07/13/17 18:36 1,000 ML Miscellaneous (Stop Order) 1 ea DAILY@0700 N/A 07/14/17 07:00 08/13/17 06:59 07/14/17 07:02 1 EA Furosemide 60 mg/ Syringe 6 ml @ 4 mls/min Q8 IV 07/14/17 14:00 08/13/17 13:59 Objective Vital Signs Date Time Temp Pulse Resp B/P (MAP) Pulse Ox O2 Delivery O2 Flow Rate FiO2 07/14/17 12:00 83 22 112/83 (93) 93 Room Air 07/14/17 12:00 93 Room Air 07/14/17 11:19 90 23 98 Nasal Cannula 2.0 07/14/17 10:00 36.7 77 22 135/84 (101) 98 Nasal Cannula 2.0 07/14/17 08:00 96 Nasal Cannula 2.0 07/14/17 08:00 36.7 93 25 105/73 (84) 96 Nasal Cannula 2.0 07/14/17 07:36 79 22 97 Nasal Cannula 2.0 07/14/17 06:01 90 24 106/77 (87) 95 07/14/17 06:00 87 20 94 07/14/17 05:00 89 21 96 07/14/17 04:01 92 25 117/81 (93) 96 07/14/17 04:00 96 Nasal Cannula 2.0 07/14/17 04:00 36.6 86 26 96 07/14/17 03:00 90 31 92 07/14/17 02:01 88 26 118/94 (102) 92 07/14/17 02:00 95 24 94 07/14/17 01:00 89 24 96 07/14/17 00:30 96 Nasal Cannula 2.0 07/14/17 00:01 94 22 123/71 (88) 98 07/14/17 00:00 36.6 92 24 98 07/13/17 23:00 94 26 99 07/13/17 22:01 92 25 113/65 (81) 99 07/13/17 22:00 90 22 99 07/13/17 21:00 96 26 99 07/13/17 20:01 97 17 134/78 (96) 98 07/13/17 20:00 96 Nasal Cannula 2.0 07/13/17 20:00 36.4 96 19 96 07/13/17 19:00 97 21 98 07/13/17 18:00 36.8 95 14 128/69 (88) 99 Nasal Cannula 2.0 07/13/17 17:17 96 19 107/69 (82) 99 Nasal Cannula 2.0 07/13/17 16:00 36.8 89 27 98 Nasal Cannula 2.0 07/13/17 16:00 90 Nasal Cannula 2.0 07/13/17 14:57 89 16 98 Nasal Cannula 4.0 07/13/17 14:00 91 18 106/62 (77) 96 Nasal Cannula 2.0 Physical Exam General Appearance: WD/WN, no apparent distress Respiratory/Chest: lungs clear, normal breath sounds Cardiovascular: regular rate, rhythm, + pertinent finding (significant peripheral edema) Abdomen: normal bowel sounds, non tender, soft, no organomegaly Neurologic/Psych: alert, + depressed affect Laboratory Results Last 24 Hours Test 07/13/17 16:42 07/13/17 20:16 07/14/17 00:03 07/14/17 03:54 Bedside Glucose 143 mg/dl 150 mg/dl 136 mg/dl 142 mg/dl Test 07/14/17 05:37 07/14/17 06:16 White Blood Count 12.10 K/uL Red Blood Count 2.08 M/uL Hemoglobin 7.4 g/dL Hematocrit 24.0 % Mean Corpuscular Volume 115.4 fL Mean Corpuscular Hemoglobin 35.6 pg Mean Corpuscular Hemoglobin Concent 30.8 g/dl Platelet Count 109 K/uL Mean Platelet Volume 12.5 fL Neutrophils (%) (Auto) 84.7 % Lymphocytes (%) (Auto) 2.7 % Monocytes (%) (Auto) 8.7 % Eosinophils (%) (Auto) 1.6 % Basophils (%) (Auto) 0.2 % Neutrophils # (Auto) 10.24 K/uL Lymphocytes # (Auto) 0.33 K/uL Monocytes # (Auto) 1.05 K/uL Eosinophils # (Auto) 0.19 K/uL Basophils # (Auto) 0.03 K/uL RDW Standard Deviation 129.7 fL RDW Coefficient of Variation 31.9 % Immature Granulocyte % (Auto) 2.1 % Immature Granulocyte # (Auto) 0.26 K/uL Nucleated RBC Absolute Count (auto) 0.05 K/uL Nucleated Red Blood Cells % 0.4 % Polychromasia 1+ Poikilocytosis PRESENT Anisocytosis PRESENT Pappenheimer Bodies OCCASIONAL Target Cells 1+ Prothrombin Time 11.4 SECONDS Prothromb Time International Ratio 1.1 Sodium Level 144 mmol/L Potassium Level 3.7 mmol/L Chloride Level 113 mmol/L Carbon Dioxide Level 23 mmol/L Anion Gap 8.0 mmol/L Blood Urea Nitrogen 76 mg/dl Creatinine 1.08 mg/dl Est Creatinine Clear Calc Drug Dose 75.1 ml/min Estimated GFR () 68.4 Estimated GFR (Non- 59.0 BUN/Creatinine Ratio 70.1 Random Glucose 150 mg/dl Calcium Level 8.3 mg/dl Magnesium Level 1.7 mg/dl Total Bilirubin 3.4 mg/dl Aspartate Amino Transf (AST/SGOT) 86 U/L Alanine Aminotransferase (ALT/SGPT) 59 U/L Alkaline Phosphatase 318 U/L Ammonia 24.0 umol/L Total Protein 5.2 gm/dl Albumin 1.7 gm/dl Globulin 3.5 gm/dl Albumin/Globulin Ratio 0.5 Thyroid Stimulating Hormone (TSH) 3.910 uIu/ml Bedside Glucose 155 mg/dl Assessment and Plan alcoholic liver disease--TB better but others up some, INR better to so overall stable. Elevated LFTS all were trending down until couple days ago. Initial elevation from ETOH. Now wonder about medication effect. Continue to follow. mental status changes---ammonia was normal --improved Elevated WBC--improved ascites--minimal on f/u CT 07/06/17 so doubt has SBP peripancreatic stranding on CT--could have an element of pancreatitis but this is not major issue and should continue tube feeds. Will repeat lipase in am. hepatomegaly--presumably from ETOH elev INR from ETOH--imrpoved abd pain--follow but benign exam and WBC improved and minimal diarrhea so doubt toxic megacolon Cdiff colitis--Cdiff 07/10 neg. This was recurrent so when this is to be stopped should be tapered over minimum of 4 weeks so qid one week, tid one week, bid one week, once daily one week then off as minimum taper length. nutrition--on tube feeds and po Thickened colon on admit CT--most likely from Cdiff. 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 Also if ischemic bowel were original problem the repeat CT 07/06 would have shown more significant bowel findings (other than sigmoid diverticulosis, no other bowel findings mentioned on CT). Continue present management.
--- NOTE | 2017-07-14 12:43 | Critical Care Progress Note ---
Critical Care Progress Note Date of Service Jul 14, 2017. Attending Dr. Gonzalez Subjective Asymptomatic overnight, continued to be lethargic, but she is following commands and answering questions and guarding her airways, she is not tolerating swallowing adequately, NG tube remains in place, no events occurred overnight. Objective General: resting in bed, lethargic [employer]: RASS score of -1 (responds to vocal stimuli), follows commands and moving extremities but not against gravity and head, attempting to vocalize and smiling HEENT: Increased scleral icterus, ET tube and OG tube Lungs: diminished breath sounds, scattered rhonchi, expiratory/inspiratory wheezing CVS: RRR, normal S1, S2, no murmurs Skin: jaundiced Abdomen: +BS (hypoactive); distended, TTP diffusely especially in lower abdomen , severe hepatomegaly Extremities: 4+ pedal edema Her physical exam on July 13, 2017 revealed vital signs are stable, S1-S2 regular rate and rhythm, NG tube in place, crackles at the bases, anasarca, abdomen is benign. Edema in the periphery. Her laboratory also reviewed personally Physical exam on July 14, 2017 revealed vital signs are stable, regular rate and rhythm, crackles mainly at the bases, continue to be with anasarca, neurologically she is super weak. Her labs has been reviewed and electrolytes has been monitored personally. Assessment & Plan 1. Resolved ARDS. The patient remains extubated day 4, her airways has been well controlled. 2. Increased volume of distribution due to fluid resuscitation with significant anasarca. 3. Dysphagia requiring NG tube feeding however she started to tolerate oral intake but inadequately. 4. Malnourishment due to prolonged hospitalization. 5. Liver cirrhosis secondary to alcoholism. 6. History of alcoholism up to this admission. 7. C. difficile colitis. 8. GERD. 9. Generalized weakness, possible CIP. 10. GI bleeding on arrival to the hospital. Plan: 1. Appreciate all consults involved in this case. 2. I will stop the infusion of D10. 3. I will stop TPN as the patient is at goal with tube feeding. 4. Appreciate nutrition consult putting the patient on circulating tube feeding overnight and attempting oral intake during the day. 5. I will stop Lasix drip. 6. Lasix 60 mg IV every 8 hours. And replacement. 7. Replace electrolytes as needed. 8. Her BUN/creatinine has been stable despite the diuresis. 9. Total body weight has dropped out also to 99 kg. Her dry weight on arrival to the hospital was in the range of 70 kg. 10. The patient will continue to need diuresis for the time being. 11. Continue with the Protonix. 12. Vanco p.o., taper very slowly per GI recommendations. Appreciated. 13. OT/PT consult. 14. Discussed with the patient, likely she will require prolonged LTAC service. Discussed with the staff on rounds and details. Critical care time spent with the patient was 45 minutes. Consults & Procedures Consultants: GI: Dr Joseph Vascular: Dr Baron General Surgery: Dr. Choe IV team for PICC line Procedures: 07/01/17: left femoral TLC 07/01/17: left femoral a-line 07/01/17: intubation 07/09/17: R IJ placement Data Medications: Current Inpatient Medications Medications (Trade) Dose Ordered Sig/Razia Route Start Time Stop Time Status Last Admin Dose Admin Pantoprazole Sodium 40 mg/ Syringe 10 ml @ 5 mls/min BID IV 06/27/17 09:00 07/27/17 08:59 07/14/17 08:35 5 MLS/MIN Ondansetron HCl (Zofran Inj) 4 mg Q6H PRN IV 06/27/17 17:46 07/27/17 17:45 Albuterol/ Ipratropium (Duoneb) 3 ml Q4 PRN INH 07/01/17 05:30 07/31/17 05:29 Future Hold 07/01/17 10:06 3 ML Heparin Sodium (Porcine) (Heparin 10 Unit/ ml 5 ml Flush) 5 ml PRN PRN FLUSH 07/04/17 20:45 08/03/17 20:44 07/13/17 13:09 5 ML Metronidazole 500 mg/Prmx 100 ml @ 100 mls/hr Q8H IV 07/09/17 12:00 07/23/17 11:59 07/14/17 11:38 100 MLS/HR Glucose (Glucose 40% Gel) 15-30 GRAMS 15 GRAMS... UD PRN PO 07/09/17 14:45 08/08/17 14:44 Glucose (Glucose Chew Tab) 4-8 Tablets 4 Tabl... UD PRN PO 07/09/17 14:45 08/08/17 14:44 Dextrose (Dextrose 50% 50ML Syringe) 25-50ML OF 50% DW IV FOR... UD PRN IV 07/09/17 14:45 08/08/17 14:44 07/09/17 14:20 25 ML Glucagon (Glucagon Inj) 1 mg UD PRN SQ 07/09/17 14:45 08/08/17 14:44 Caspofungin 50 mg/ Sodium Chloride 110 ml @ 110 mls/hr Q24H IV 07/12/17 11:00 08/08/17 10:59 07/14/17 10:42 110 MLS/HR Insulin Aspart (novoLOG ASPART) SLIDING SCALE Q4 SC 07/11/17 16:00 08/10/17 15:59 Vancomycin HCl (Vancomycin Oral Soln) 500 mg Q6H PO 07/12/17 16:00 07/22/17 15:59 07/14/17 10:00 500 MG Albuterol/ Ipratropium (Duoneb) 3 ml QIDR INH 07/11/17 20:00 08/10/17 19:59 07/14/17 11:15 3 ML Thiamine HCl 200 mg/Sodium Chloride 52 ml @ 208 mls/hr BID IV 07/13/17 09:00 08/12/17 08:59 07/14/17 08:36 208 MLS/HR Multivitamins/ Minerals (Multivitamin W/ Minerals Tab) 1 tab QAM PO 07/13/17 09:00 08/12/17 08:59 07/14/17 08:35 1 TAB Folic Acid 1 mg/ Syringe 10 ml @ 5 mls/min QAM IV 07/13/17 09:00 08/12/17 08:59 07/14/17 08:35 5 MLS/MIN Potassium Chloride (Coreen Ciel Elix) 40 meq BID PO 07/13/17 09:00 08/12/17 08:59 07/14/17 08:34 40 MEQ Enteral Nutritional Formula (Peptamen 1.5) 1,000 ml DAILY@1900 NG 07/13/17 19:00 08/12/17 18:59 07/13/17 18:36 1,000 ML Miscellaneous (Stop Order) 1 ea DAILY@0700 N/A 3/24/18 07:00 08/13/17 06:59 07/14/17 07:02 1 EA Furosemide 60 mg/ Syringe 6 ml @ 4 mls/min Q8 IV 07/14/17 14:00 08/13/17 13:59 Vital Signs: Date Time Temp Pulse Resp B/P (MAP) Pulse Ox O2 Delivery O2 Flow Rate FiO2 07/14/17 12:00 83 22 112/83 (93) 93 Room Air 07/14/17 12:00 93 Room Air 07/14/17 11:19 90 23 98 Nasal Cannula 2.0 07/14/17 10:00 36.7 77 22 135/84 (101) 98 Nasal Cannula 2.0 07/14/17 08:00 96 Nasal Cannula 2.0 07/14/17 08:00 36.7 93 25 105/73 (84) 96 Nasal Cannula 2.0 07/14/17 07:36 79 22 97 Nasal Cannula 2.0 07/14/17 06:01 90 24 106/77 (87) 95 07/14/17 06:00 87 20 94 07/14/17 05:00 89 21 96 07/14/17 04:01 92 25 117/81 (93) 96 07/14/17 04:00 96 Nasal Cannula 2.0 07/14/17 04:00 36.6 86 26 96 07/14/17 03:00 90 31 92 07/14/17 02:01 88 26 118/94 (102) 92 07/14/17 02:00 95 24 94 07/14/17 01:00 89 24 96 07/14/17 00:30 96 Nasal Cannula 2.0 07/14/17 00:01 94 22 123/71 (88) 98 07/14/17 00:00 36.6 92 24 98 07/13/17 23:00 94 26 99 07/13/17 22:01 92 25 113/65 (81) 99 07/13/17 22:00 90 22 99 07/13/17 21:00 96 26 99 07/13/17 20:01 97 17 134/78 (96) 98 07/13/17 20:00 96 Nasal Cannula 2.0 07/13/17 20:00 36.4 96 19 96 07/13/17 19:00 97 21 98 07/13/17 18:00 36.8 95 14 128/69 (88) 99 Nasal Cannula 2.0 07/13/17 17:17 96 19 107/69 (82) 99 Nasal Cannula 2.0 07/13/17 16:00 36.8 89 27 98 Nasal Cannula 2.0 07/13/17 16:00 90 Nasal Cannula 2.0 07/13/17 14:57 89 16 98 Nasal Cannula 4.0 07/13/17 14:00 91 18 106/62 (77) 96 Nasal Cannula 2.0 Laboratory Results: Last 24 Hours Test 07/13/17 16:42 07/13/17 20:16 07/14/17 00:03 07/14/17 03:54 Bedside Glucose 143 mg/dl 150 mg/dl 136 mg/dl 142 mg/dl Test 07/14/17 05:37 07/14/17 06:16 White Blood Count 12.10 K/uL Red Blood Count 2.08 M/uL Hemoglobin 7.4 g/dL Hematocrit 24.0 % Mean Corpuscular Volume 115.4 fL Mean Corpuscular Hemoglobin 35.6 pg Mean Corpuscular Hemoglobin Concent 30.8 g/dl Platelet Count 109 K/uL Mean Platelet Volume 12.5 fL Neutrophils (%) (Auto) 84.7 % Lymphocytes (%) (Auto) 2.7 % Monocytes (%) (Auto) 8.7 % Eosinophils (%) (Auto) 1.6 % Basophils (%) (Auto) 0.2 % Neutrophils # (Auto) 10.24 K/uL Lymphocytes # (Auto) 0.33 K/uL Monocytes # (Auto) 1.05 K/uL Eosinophils # (Auto) 0.19 K/uL Basophils # (Auto) 0.03 K/uL RDW Standard Deviation 129.7 fL RDW Coefficient of Variation 31.9 % Immature Granulocyte % (Auto) 2.1 % Immature Granulocyte # (Auto) 0.26 K/uL Nucleated RBC Absolute Count (auto) 0.05 K/uL Nucleated Red Blood Cells % 0.4 % Polychromasia 1+ Poikilocytosis PRESENT Anisocytosis PRESENT Pappenheimer Bodies OCCASIONAL Target Cells 1+ Prothrombin Time 11.4 SECONDS Prothromb Time International Ratio 1.1 Sodium Level 144 mmol/L Potassium Level 3.7 mmol/L Chloride Level 113 mmol/L Carbon Dioxide Level 23 mmol/L Anion Gap 8.0 mmol/L Blood Urea Nitrogen 76 mg/dl Creatinine 1.08 mg/dl Est Creatinine Clear Calc Drug Dose 75.1 ml/min Estimated GFR () 68.4 Estimated GFR (Non- 59.0 BUN/Creatinine Ratio 70.1 Random Glucose 150 mg/dl Calcium Level 8.3 mg/dl Magnesium Level 1.7 mg/dl Total Bilirubin 3.4 mg/dl Aspartate Amino Transf (AST/SGOT) 86 U/L Alanine Aminotransferase (ALT/SGPT) 59 U/L Alkaline Phosphatase 318 U/L Ammonia 24.0 umol/L Total Protein 5.2 gm/dl Albumin 1.7 gm/dl Globulin 3.5 gm/dl Albumin/Globulin Ratio 0.5 Thyroid Stimulating Hormone (TSH) 3.910 uIu/ml Bedside Glucose 155 mg/dl
[2017-07-14] MEDS: FUROSEMIDE INJ 60 MG in SYRINGE 0 ML IV SCH ×2 (14:16→20:15)
[2017-07-14] MEDS: PEPTAMEN 1.5 CAL 1000ML BAG NG SCH (19:57)
--- NOTE | 2017-07-14 20:31 | Progress Note ---
Subjective Date of Service: Jul 14, 2017. Subjective Pt evaluation today including: conversation w/ patient, conversation w/ family (daughter, by phone), physical exam, chart review, lab review, conversation w/ consultant intern (critical care) Pain: high epigastric region PO Intake: poor - 10% of meals at best Voiding: gil catheter in place no events overnight patient sleeping in chair by the bed awoke when name was called; very slow to answer questions c/o high epigastric pain tele normal overnight unable to elicit ROS due to altered MS Problem List Medical Problems: (1) Abdominal pain Status: Acute (2) Acute pancreatitis Status: Acute (3) Alcohol abuse Status: Acute (4) Alcohol intoxication Status: Acute (5) Anemia Status: Acute (6) Anemia Status: Acute (7) Biliary obstruction Status: Acute (8) C. difficile colitis Status: Acute (9) C. difficile diarrhea Status: Acute (10) Chest pain Status: Acute (11) Contusion of multiple sites Status: Acute (12) Dehydration Status: Acute (13) Dehydration Status: Acute (14) Encounter for smoking cessation counseling Status: Acute (15) Epigastric abdominal pain Status: Acute (16) Fall Status: Acute (17) Fall due to slipping on ice or snow Status: Acute (18) Fracture of left distal radius Status: Acute (19) Hypocalcemia Status: Acute (20) Hypomagnesemia Status: Acute (21) Hypomagnesemia Status: Acute (22) Hypotension Status: Acute (23) Lactic acidosis Status: Acute (24) Liver failure Status: Acute (25) Pancreatitis Status: Acute Objective Vital Signs Date Time Temp Pulse Resp B/P (MAP) Pulse Ox O2 Delivery O2 Flow Rate FiO2 07/14/17 20:00 91 20 98 Nasal Cannula 2.0 07/14/17 19:30 36.5 07/14/17 18:00 88 20 120/73 (89) 98 Nasal Cannula 2.0 07/14/17 16:00 36.6 89 20 107/73 (84) 97 Nasal Cannula 2.0 07/14/17 16:00 Nasal Cannula 2.0 07/14/17 15:54 89 22 100 Nasal Cannula 2.0 07/14/17 14:00 36.6 80 22 113/73 (86) 97 Nasal Cannula 2.0 07/14/17 12:00 83 22 112/83 (93) 93 Room Air 07/14/17 12:00 93 Room Air 07/14/17 11:19 90 23 98 Nasal Cannula 2.0 07/14/17 10:00 36.7 77 22 135/84 (101) 98 Nasal Cannula 2.0 07/14/17 08:00 96 Nasal Cannula 2.0 07/14/17 08:00 36.7 93 25 105/73 (84) 96 Nasal Cannula 2.0 07/14/17 07:36 79 22 97 Nasal Cannula 2.0 07/14/17 06:01 90 24 106/77 (87) 95 07/14/17 06:00 87 20 94 07/14/17 05:00 89 21 96 07/14/17 04:01 92 25 117/81 (93) 96 07/14/17 04:00 96 Nasal Cannula 2.0 07/14/17 04:00 36.6 86 26 96 07/14/17 03:00 90 31 92 07/14/17 02:01 88 26 118/94 (102) 92 07/14/17 02:00 95 24 94 07/14/17 01:00 89 24 96 07/14/17 00:30 96 Nasal Cannula 2.0 07/14/17 00:01 94 22 123/71 (88) 98 07/14/17 00:00 36.6 92 24 98 07/13/17 23:00 94 26 99 07/13/17 22:01 92 25 113/65 (81) 99 07/13/17 22:00 90 22 99 07/13/17 21:00 96 26 99 Physical Exam General Appearance: + mild distress (tachypneic ), + pertinent finding (looks very ill, sleepy, confused) Eyes: + abnormal sclerae exam (mild icterus) ENT: pharynx normal Neck: + pertinent finding (right IJ CVC in place) Respiratory/Chest: + respiratory distress (tachypnea, mild retractions), + decreased breath sounds (bases), + crackles, + wheezing (mild end-exp) Cardiovascular: regular rate, rhythm, no gallop Abdomen: + distended, + tenderness (high epigastric region), + hepatomegaly Extremities: + pedal edema, + swelling (severe ANASARCA to the legs ) Neurologic/Psychiatric: + disoriented Skin: + pallor Laboratory Results Last 24 Hours Test 07/14/17 00:03 07/14/17 03:54 07/14/17 05:37 07/14/17 06:16 Bedside Glucose 136 mg/dl 142 mg/dl 155 mg/dl White Blood Count 12.10 K/uL Red Blood Count 2.08 M/uL Hemoglobin 7.4 g/dL Hematocrit 24.0 % Mean Corpuscular Volume 115.4 fL Mean Corpuscular Hemoglobin 35.6 pg Mean Corpuscular Hemoglobin Concent 30.8 g/dl Platelet Count 109 K/uL Mean Platelet Volume 12.5 fL Neutrophils (%) (Auto) 84.7 % Lymphocytes (%) (Auto) 2.7 % Monocytes (%) (Auto) 8.7 % Eosinophils (%) (Auto) 1.6 % Basophils (%) (Auto) 0.2 % Neutrophils # (Auto) 10.24 K/uL Lymphocytes # (Auto) 0.33 K/uL Monocytes # (Auto) 1.05 K/uL Eosinophils # (Auto) 0.19 K/uL Basophils # (Auto) 0.03 K/uL RDW Standard Deviation 129.7 fL RDW Coefficient of Variation 31.9 % Immature Granulocyte % (Auto) 2.1 % Immature Granulocyte # (Auto) 0.26 K/uL Nucleated RBC Absolute Count (auto) 0.05 K/uL Nucleated Red Blood Cells % 0.4 % Polychromasia 1+ Poikilocytosis PRESENT Anisocytosis PRESENT Pappenheimer Bodies OCCASIONAL Target Cells 1+ Prothrombin Time 11.4 SECONDS Prothromb Time International Ratio 1.1 Sodium Level 144 mmol/L Potassium Level 3.7 mmol/L Chloride Level 113 mmol/L Carbon Dioxide Level 23 mmol/L Anion Gap 8.0 mmol/L Blood Urea Nitrogen 76 mg/dl Creatinine 1.08 mg/dl Est Creatinine Clear Calc Drug Dose 75.1 ml/min Estimated GFR () 68.4 Estimated GFR (Non- 59.0 BUN/Creatinine Ratio 70.1 Random Glucose 150 mg/dl Calcium Level 8.3 mg/dl Magnesium Level 1.7 mg/dl Total Bilirubin 3.4 mg/dl Aspartate Amino Transf (AST/SGOT) 86 U/L Alanine Aminotransferase (ALT/SGPT) 59 U/L Alkaline Phosphatase 318 U/L Ammonia 24.0 umol/L Total Protein 5.2 gm/dl Albumin 1.7 gm/dl Globulin 3.5 gm/dl Albumin/Globulin Ratio 0.5 Thyroid Stimulating Hormone (TSH) 3.910 uIu/ml Test 07/14/17 11:41 07/14/17 16:06 Bedside Glucose 131 mg/dl 110 mg/dl Assessment and Plan 52yo female with: 1. recent septic shock 2nd to pneumonia and c. diff colitis - resolved. 2. pneumonia, possibly due to marisol albicans or gram negative etiology - completed copious amounts of IV antibiotics for gram neg etiology; now remains on caspofungin, day # 6/10. 3. altered mental status/encephalopathy - ongoing. 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 Cont thiamine 200mg IV BID, MVI, and folic acid. TSH wnl. Ammonia today wnl. 4. severe c. diff colitis - recurrent - on slow vancomycin wean and IV flagyl. Defer management to GI/ID. 5. acute hypoxic respiratory failure 2nd to pneumonia/ARDS - resolving, was on vent and successfully extubated; remains on NC O2. Now receiving diuresis for massive anasarca/volume overload state. 6. acute alcoholic hepatitis - LFTs slowly normalizing; GI following. 7. hypokalemia & hypomagnesemia - replete Mag today once again. 8. chronic anemia - possibly due in part from chronic GI blood loss - Tx if Hb < 7. Recent b12/folate wnl. 9. thrombocytopenia - likely due to toxic effects from etoh and also from liver disease - daily CBC for stability. HIT ab negative. Platelets today modestly improved. 10. significant prerenal azotemia - lasix drip d/c, now on bolus lasix IV. 11. severe protein calorie malnutrition - NG tube feedings at HS, diet as tolerated during the day. 12. h/o HTN - controlled off of anti-hypertensives. 13. coagulopathy - 2nd to #6 - resolved. 14. DVT proph - SCDs; chemical means contraindicated due to #9. 15. abdominal pain - remains on PPI twice a day. Recheck lipase in AM to ensure she doesn't have a smoldering pancreatitis. 16. profound deconditioning/weakness - could have critical illness myopathy. Check CPK am. DNR PT, OT, speech following very, very poor prognosis even if she recovers will need SNF placement following discharge updated daughter today - I gave her my concerns about her overall status and poor prognosis may be able to go to tele tomorrow Continued [facility] stay due to: inadequate po fluid intake, voiding difficulties, ambulation difficulties, multiple IV medications needed, home environment unsafe for pt Discharge planning: uncertain
[2017-07-15] VITALS (19 sets, daily range): BP systolic 103–130; BP diastolic 67–88; PULSE 75–94; TEMP 36.5–37; O2SAT 93–100
[2017-07-15] MEDS: INSULIN ASPART 100 UNITS/ML 3 ML PEN SC SCH ×5 (04:00→17:03)
[2017-07-15] MEDS: VANCOMYCIN HCL 500 MG/10ML SOLN PO SCH ×4 (04:32→22:18)
[2017-07-15] MEDS: METRONIDAZOLE / NSS 500 MG in PREMIXED NSS 100 ML IV SCH ×3 (04:32→20:35)
[2017-07-15] MEDS: FUROSEMIDE INJ 60 MG in SYRINGE 0 ML IV SCH (05:45)
[2017-07-15 06:14] LABS: BASO % 0.1 %; BASO ABS # 0.01 K/uL (0-0.2); EOS % 1.5 %; EOS ABS # 0.13 K/uL (0-0.5); HEMATOCRIT 24.6 % (37-47); HEMOGLOBIN 7.5 g/dL (12.0-16.0); IG# 0.27 K/uL (0.00-0.02); LYMPH % 4.7 %; LYMPH ABS # 0.41 K/uL (1.2-3.4); MEAN CELL VOLUME 116.6 fL (80-100); MEAN CORPUSCULAR HEMOGLOBIN 35.5 pg (25-34); MEAN CORPUSCULAR HGB CONC 30.5 g/dl (32-36); MEAN PLATELET VOLUME 11.9 fL (7.4-10.4); MONO % 9.5 %; MONO ABS # 0.83 K/uL (0.11-0.59); NEUT % 81.1 %; NEUT ABS # 7.06 K/uL (1.4-6.5); NUCLEATED RED BLOOD CELL ABS 0.03 K/uL (0-0); PLATELET COUNT 120 K/uL (130-400); WHITE BLOOD COUNT 8.71 K/uL (4.8-10.8)
[2017-07-15 06:32] LABS: INR 1.1 (0.9-1.1)
[2017-07-15 06:34] LABS: ALBUMIN 1.7 gm/dl (3.4-5.0); CALCIUM 8.2 mg/dl (8.5-10.1); CREATININE 0.84 mg/dl (0.60-1.20)
[2017-07-15 06:39] LABS: TOTAL PROTEIN 5.2 gm/dl (6.4-8.2)
[2017-07-15] MEDS: [UNRECOGNIZED DRUG - REMARK] SCH (07:15)
[2017-07-15] MEDS: ALBUT/IPRATROP 3MG/0.5MG NEB 3 ML VIAL INH SCH ×4 (07:29→19:36)
[2017-07-15] MEDS: CEROVITE ADV FORMULA TAB PO SCH (09:00)
[2017-07-15] MEDS: POTASSIUM CHLORIDE 20 MEQ/15 ML UDC PO SCH ×2 (09:01→22:18)
[2017-07-15] MEDS: PANTOprazole INJ 40 MG in SYRINGE 0 ML IV SCH ×2 (09:02→22:18)
[2017-07-15] MEDS: FoLIC ACID INJ 1 MG in SYRINGE 9.8 ML IV SCH (09:02)
[2017-07-15] MEDS: CASPOFUNGIN INJ 50 MG in SODIUM CHLORIDE 0.9% 100ML 100 ML IV SCH (11:06)
[2017-07-15] MEDS: THIAMINE HCL 100 MG TAB PO SCH ×2 (11:06→22:19)
[2017-07-15] MEDS: FUROSEMIDE INJ 40 MG in SYRINGE 0 ML IV SCH ×2 (13:40→22:18)
--- NOTE | 2017-07-15 13:42 | Gastroenterology Progress Note ---
Progress Note Date of Service: Jul 15, 2017 Subjective Pt evaluation today including: conversation w/ patient, physical exam, chart review, lab review, review of studies, review of inpatient medication list cc f/u ETOH hepatitis, abd pain HPI Discussed with nurse and she is having tube feed appropriate loose stools. Pt when asked states she has some abd pain. Getting tube feeds overnight and per nurse not much of an appetite. Review of Systems Respiratory: + shortness of breath (mild per patient) Cardiac: No chest pain Medications Current Inpatient Medications Medications (Trade) Dose Ordered Sig/Razia Route Start Time Stop Time Status Last Admin Dose Admin Pantoprazole Sodium 40 mg/ Syringe 10 ml @ 5 mls/min BID IV 06/27/17 09:00 07/27/17 08:59 07/15/17 09:02 5 MLS/MIN Ondansetron HCl (Zofran Inj) 4 mg Q6H PRN IV 06/27/17 17:46 07/27/17 17:45 Albuterol/ Ipratropium (Duoneb) 3 ml Q4 PRN INH 07/01/17 05:30 07/31/17 05:29 Future Hold 07/01/17 10:06 3 ML Heparin Sodium (Porcine) (Heparin 10 Unit/ ml 5 ml Flush) 5 ml PRN PRN FLUSH 07/04/17 20:45 08/03/17 20:44 07/13/17 13:09 5 ML Metronidazole 500 mg/Prmx 100 ml @ 100 mls/hr Q8H IV 07/09/17 12:00 07/23/17 11:59 07/15/17 12:31 100 MLS/HR Glucose (Glucose 40% Gel) 15-30 GRAMS 15 GRAMS... UD PRN PO 07/09/17 14:45 08/08/17 14:44 Glucose (Glucose Chew Tab) 4-8 Tablets 4 Tabl... UD PRN PO 07/09/17 14:45 08/08/17 14:44 Dextrose (Dextrose 50% 50ML Syringe) 25-50ML OF 50% DW IV FOR... UD PRN IV 07/09/17 14:45 08/08/17 14:44 07/09/17 14:20 25 ML Glucagon (Glucagon Inj) 1 mg UD PRN SQ 07/09/17 14:45 08/08/17 14:44 Caspofungin 50 mg/ Sodium Chloride 110 ml @ 110 mls/hr Q24H IV 07/12/17 11:00 08/08/17 10:59 07/15/17 11:06 110 MLS/HR Insulin Aspart (novoLOG ASPART) SLIDING SCALE Q4 SC 07/11/17 16:00 08/10/17 15:59 Vancomycin HCl (Vancomycin Oral Soln) 500 mg Q6H PO 07/12/17 16:00 07/22/17 15:59 07/15/17 09:37 500 MG Albuterol/ Ipratropium (Duoneb) 3 ml QIDR INH 07/11/17 20:00 08/10/17 19:59 07/15/17 11:24 3 ML Multivitamins/ Minerals (Multivitamin W/ Minerals Tab) 1 tab QAM PO 07/13/17 09:00 08/12/17 08:59 07/15/17 09:00 1 TAB Folic Acid 1 mg/ Syringe 10 ml @ 5 mls/min QAM IV 07/13/17 09:00 08/12/17 08:59 07/15/17 09:02 5 MLS/MIN Potassium Chloride (Coreen Ciel Elix) 40 meq BID PO 07/13/17 09:00 08/12/17 08:59 07/15/17 09:01 40 MEQ Enteral Nutritional Formula (Peptamen 1.5) 1,000 ml DAILY@1900 NG 07/13/17 19:00 08/12/17 18:59 07/14/17 19:57 1,000 ML Miscellaneous (Stop Order) 1 ea DAILY@0700 N/A 07/14/17 07:00 08/13/17 06:59 07/15/17 07:15 1 EA Furosemide 40 mg/ Syringe 4 ml @ 4 mls/min Q8 IV 07/15/17 14:00 08/13/17 13:59 Thiamine HCl (Vitamin B-1 Tab) 200 mg BID PO 07/15/17 09:00 08/14/17 08:59 07/15/17 11:06 200 MG Objective Vital Signs Date Time Temp Pulse Resp B/P (MAP) Pulse Ox O2 Delivery O2 Flow Rate FiO2 07/15/17 12:53 36.7 87 20 96 2.0 07/15/17 12:00 Nasal Cannula 2.0 07/15/17 12:00 36.7 87 20 104/75 (85) 96 Nasal Cannula 2.0 07/15/17 11:27 86 20 95 Nasal Cannula 2.0 07/15/17 10:00 93 14 130/88 (102) 96 Nasal Cannula 2.0 07/15/17 08:00 Nasal Cannula 2.0 07/15/17 08:00 36.6 75 20 127/83 (98) 93 Nasal Cannula 2.0 07/15/17 07:30 94 20 95 Nasal Cannula 2.0 07/15/17 06:01 90 22 125/85 (98) 98 Nasal Cannula 2.0 07/15/17 05:01 87 18 127/82 (97) 98 Nasal Cannula 2.0 07/15/17 04:01 36.8 83 13 118/73 (88) 93 Nasal Cannula 2.0 07/15/17 04:01 83 13 118/73 (88) 93 07/15/17 04:00 Nasal Cannula 2.0 07/15/17 03:01 88 16 129/83 (98) 100 Nasal Cannula 2.0 07/15/17 02:01 89 18 119/71 (87) 96 Nasal Cannula 2.0 07/15/17 01:01 89 17 117/82 (94) 99 Nasal Cannula 2.0 07/15/17 00:01 Nasal Cannula 2.0 07/15/17 00:01 36.6 90 22 122/80 (94) 98 Nasal Cannula 2.0 07/14/17 23:01 91 18 123/81 (95) 98 Nasal Cannula 2.0 07/14/17 22:01 79 20 98/66 (77) 99 Nasal Cannula 2.0 07/14/17 21:01 92 18 120/78 (92) 100 Nasal Cannula 2.0 07/14/17 20:18 88 20 116/79 (91) 96 Nasal Cannula 2.0 07/14/17 20:00 Nasal Cannula 2.0 07/14/17 20:00 91 20 98 Nasal Cannula 2.0 07/14/17 19:30 36.5 07/14/17 18:00 88 20 120/73 (89) 98 Nasal Cannula 2.0 07/14/17 16:00 36.6 89 20 107/73 (84) 97 Nasal Cannula 2.0 07/14/17 16:00 Nasal Cannula 2.0 07/14/17 15:54 89 22 100 Nasal Cannula 2.0 07/14/17 14:00 36.6 80 22 113/73 (86) 97 Nasal Cannula 2.0 Physical Exam General Appearance: WD/WN, no apparent distress Respiratory/Chest: lungs clear, no respiratory distress Cardiovascular: regular rate, rhythm, + pertinent finding (peripheral edema) Abdomen: normal bowel sounds, non tender, soft, no organomegaly, no pulsatile mass Neurologic/Psych: alert, + pertinent finding (slow with answering and no detailed answers) Skin: normal color Laboratory Results Last 24 Hours Test 07/14/17 16:06 07/14/17 20:06 07/15/17 00:01 07/15/17 04:41 Bedside Glucose 110 mg/dl 119 mg/dl 132 mg/dl 131 mg/dl Test 07/15/17 05:34 07/15/17 07:47 07/15/17 11:29 White Blood Count 8.71 K/uL Red Blood Count 2.11 M/uL Hemoglobin 7.5 g/dL Hematocrit 24.6 % Mean Corpuscular Volume 116.6 fL Mean Corpuscular Hemoglobin 35.5 pg Mean Corpuscular Hemoglobin Concent 30.5 g/dl Platelet Count 120 K/uL Mean Platelet Volume 11.9 fL Neutrophils (%) (Auto) 81.1 % Lymphocytes (%) (Auto) 4.7 % Monocytes (%) (Auto) 9.5 % Eosinophils (%) (Auto) 1.5 % Basophils (%) (Auto) 0.1 % Neutrophils # (Auto) 7.06 K/uL Lymphocytes # (Auto) 0.41 K/uL Monocytes # (Auto) 0.83 K/uL Eosinophils # (Auto) 0.13 K/uL Basophils # (Auto) 0.01 K/uL Immature Granulocyte % (Auto) 3.1 % Immature Granulocyte # (Auto) 0.27 K/uL Nucleated RBC Absolute Count (auto) 0.03 K/uL Nucleated Red Blood Cells % 0.4 % Basophilic Stippling 1+ Anisocytosis PRESENT Macrocytosis PRESENT Pappenheimer Bodies OCCASIONAL Target Cells 1+ Prothrombin Time 11.4 SECONDS Prothromb Time International Ratio 1.1 Sodium Level 146 mmol/L Potassium Level 4.0 mmol/L Chloride Level 114 mmol/L Carbon Dioxide Level 24 mmol/L Anion Gap 8.0 mmol/L Blood Urea Nitrogen 74 mg/dl Creatinine 0.84 mg/dl Est Creatinine Clear Calc Drug Dose 98.4 ml/min Estimated GFR () 92.6 Estimated GFR (Non- 79.9 BUN/Creatinine Ratio 88.2 Random Glucose 131 mg/dl Calcium Level 8.2 mg/dl Magnesium Level 1.9 mg/dl Total Bilirubin 2.8 mg/dl Aspartate Amino Transf (AST/SGOT) 78 U/L Alanine Aminotransferase (ALT/SGPT) 62 U/L Alkaline Phosphatase 292 U/L Total Creatine Kinase 50 U/L Total Protein 5.2 gm/dl Albumin 1.7 gm/dl Globulin 3.5 gm/dl Albumin/Globulin Ratio 0.5 Lipase 274 U/L Bedside Glucose 127 mg/dl 125 mg/dl Assessment and Plan alcoholic liver disease--INR stable. LFTS improved Elevated LFTS trending down againg mental status changes---ammonia was normal --improved since earlier in week but patients mentation slow possibly from chronic ETOH effect on brain Elevated WBC--resolved ascites--minimal on f/u CT 07/06/17 so doubt has SBP peripancreatic stranding on CT--could have an element of pancreatitis but this is not major issue and should continue tube feeds. Will repeat lipase in am. hepatomegaly--presumably from ETOH elev INR from ETOH--imrpoved abd pain--follow but benign exam and WBC improved and minimal diarrhea so doubt toxic megacolon Cdiff colitis--Cdiff 07/10 neg. This was recurrent so when this is to be stopped should be tapered over minimum of 4 weeks so qid one week, tid one week, bid one week, once daily one week then off as minimum taper length. nutrition--on tube feeds and po Thickened colon on admit CT--most likely from Cdiff. 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 Also if ischemic bowel were original problem the repeat CT 07/06 would have shown more significant bowel findings (other than sigmoid diverticulosis, no other bowel findings mentioned on CT). Pt with slow but steady improvement. Continue present management. I am going off service tomorrow 07/[address] Joseph assuming GI care then.
--- NOTE | 2017-07-15 13:59 | Critical Care Progress Note ---
Critical Care Progress Note Date of Service Jul 15, 2017. Attending Dr. Gonzalez Subjective The patient denies any pain, continued to be lethargic, she is following commands and become more awake. However overall she is generally weak. After prolonged hospitalization in the ICU. Objective General: resting in bed, lethargic BUSINESS LIBRARIAN: RASS score of -1 (responds to vocal stimuli), follows commands and moving extremities but not against gravity and head, attempting to vocalize and smiling HEENT: Increased scleral icterus, ET tube and OG tube Lungs: diminished breath sounds, scattered rhonchi, expiratory/inspiratory wheezing CVS: RRR, normal S1, S2, no murmurs Skin: jaundiced Abdomen: +BS (hypoactive); distended, TTP diffusely especially in lower abdomen , severe hepatomegaly Extremities: 4+ pedal edema Her physical exam on July 13, 2017 revealed vital signs are stable, S1-S2 regular rate and rhythm, NG tube in place, crackles at the bases, anasarca, abdomen is benign. Edema in the periphery. Her laboratory also reviewed personally Physical exam on July 14, 2017 revealed vital signs are stable, regular rate and rhythm, crackles mainly at the bases, continue to be with anasarca, neurologically she is super weak. Her labs has been reviewed and electrolytes has been monitored personally. Physical exam on July 15, 2017 revealed vital signs were stable, she continued to have anasarca but much less, S1-S2 regular rate and rhythm, minimal crackles mainly at the bases, abdomen is soft and tender mainly at the liver where she has hepatomegaly. Her laboratory also reviewed today which revealed development of metabolic alkalosis. Otherwise it was unremarkable. Assessment & Plan 1. Resolved ARDS. The patient remains extubated day 4, her airways has been well controlled. 2. Increased volume of distribution due to fluid resuscitation with significant anasarca. 3. Dysphagia requiring NG tube feeding however she started to tolerate oral intake but inadequately. 4. Malnourishment due to prolonged hospitalization. 5. Liver cirrhosis secondary to alcoholism. 6. History of alcoholism up to this admission. 7. C. difficile colitis. 8. GERD. 9. Generalized weakness, possible CIP. 10. GI bleeding on arrival to the hospital. Plan: 1. Appreciate all consults involved in this case. 2. Continue with Peptamen, increase it to goal. 3. I will stop TPN . 4. Appreciate nutrition consult putting the patient on circulating tube feeding overnight and attempting oral intake during the day. 5. I will stop Lasix drip. 6. Decrease Lasix to 40 mg IV every 8 hours. 7. Replace electrolytes as needed. 8. Her BUN/creatinine has been stable despite the diuresis. 9. Total body weight has dropped out also to 99 kg. We will obtain accurate body weight. 10. The patient will continue to need diuresis for the time being. 11. Continue with the Protonix. 12. Vanco p.o., taper very slowly per GI recommendations. Appreciated. 13. OT/PT consult. 14. Discussed with the patient, likely she will require prolonged LTAC service. 15. Continue caspofungin per infectious disease. 16. Flagyl can be stopped. 17. Appreciate Dr. Soares acceptance of this case to regular floor with telemetry. Discussed with the staff on rounds and details. Critical care time spent with the patient was 45 minutes. Consults & Procedures Consultants: GI: Dr Joseph Vascular: Dr Baron General Surgery: Dr. Choe IV team for PICC line Procedures: 07/01/17: left femoral TLC 07/01/17: left femoral a-line 07/01/17: intubation 07/09/17: R IJ placement Data Medications: Current Inpatient Medications Medications (Trade) Dose Ordered Sig/Razia Route Start Time Stop Time Status Last Admin Dose Admin Pantoprazole Sodium 40 mg/ Syringe 10 ml @ 5 mls/min BID IV 06/27/17 09:00 07/27/17 08:59 07/15/17 09:02 5 MLS/MIN Ondansetron HCl (Zofran Inj) 4 mg Q6H PRN IV 06/27/17 17:46 07/27/17 17:45 Albuterol/ Ipratropium (Duoneb) 3 ml Q4 PRN INH 07/01/17 05:30 07/31/17 05:29 Future Hold 07/01/17 10:06 3 ML Heparin Sodium (Porcine) (Heparin 10 Unit/ ml 5 ml Flush) 5 ml PRN PRN FLUSH 07/04/17 20:45 08/03/17 20:44 07/13/17 13:09 5 ML Metronidazole 500 mg/Prmx 100 ml @ 100 mls/hr Q8H IV 07/09/17 12:00 07/23/17 11:59 07/15/17 12:31 100 MLS/HR Glucose (Glucose 40% Gel) 15-30 GRAMS 15 GRAMS... UD PRN PO 07/09/17 14:45 08/08/17 14:44 Glucose (Glucose Chew Tab) 4-8 Tablets 4 Tabl... UD PRN PO 07/09/17 14:45 08/08/17 14:44 Dextrose (Dextrose 50% 50ML Syringe) 25-50ML OF 50% DW IV FOR... UD PRN IV 07/09/17 14:45 08/08/17 14:44 07/09/17 14:20 25 ML Glucagon (Glucagon Inj) 1 mg UD PRN SQ 07/09/17 14:45 08/08/17 14:44 Caspofungin 50 mg/ Sodium Chloride 110 ml @ 110 mls/hr Q24H IV 07/12/17 11:00 08/08/17 10:59 07/15/17 11:06 110 MLS/HR Insulin Aspart (novoLOG ASPART) SLIDING SCALE Q4 SC 07/11/17 16:00 08/10/17 15:59 Vancomycin HCl (Vancomycin Oral Soln) 500 mg Q6H PO 07/12/17 16:00 07/22/17 15:59 07/15/17 09:37 500 MG Albuterol/ Ipratropium (Duoneb) 3 ml QIDR INH 07/11/17 20:00 08/10/17 19:59 07/15/17 11:24 3 ML Multivitamins/ Minerals (Multivitamin W/ Minerals Tab) 1 tab QAM PO 07/13/17 09:00 08/12/17 08:59 07/15/17 09:00 1 TAB Folic Acid 1 mg/ Syringe 10 ml @ 5 mls/min QAM IV 07/13/17 09:00 08/12/17 08:59 07/15/17 09:02 5 MLS/MIN Potassium Chloride (Coreen Ciel Elix) 40 meq BID PO 07/13/17 09:00 08/12/17 08:59 07/15/17 09:01 40 MEQ Enteral Nutritional Formula (Peptamen 1.5) 1,000 ml DAILY@1900 NG 07/13/17 19:00 08/12/17 18:59 3/24/18 19:57 1,000 ML Miscellaneous (Stop Order) 1 ea DAILY@0700 N/A 07/14/17 07:00 08/13/17 06:59 07/15/17 07:15 1 EA Furosemide 40 mg/ Syringe 4 ml @ 4 mls/min Q8 IV 07/15/17 14:00 08/13/17 13:59 07/15/17 13:40 4 MLS/MIN Thiamine HCl (Vitamin B-1 Tab) 200 mg BID PO 07/15/17 09:00 08/14/17 08:59 07/15/17 11:06 200 MG Vital Signs: Date Time Temp Pulse Resp B/P (MAP) Pulse Ox O2 Delivery O2 Flow Rate FiO2 07/15/17 12:53 36.7 87 20 96 2.0 07/15/17 12:00 Nasal Cannula 2.0 07/15/17 12:00 36.7 87 20 104/75 (85) 96 Nasal Cannula 2.0 07/15/17 11:27 86 20 95 Nasal Cannula 2.0 07/15/17 10:00 93 14 130/88 (102) 96 Nasal Cannula 2.0 07/15/17 08:00 Nasal Cannula 2.0 07/15/17 08:00 36.6 75 20 127/83 (98) 93 Nasal Cannula 2.0 07/15/17 07:30 94 20 95 Nasal Cannula 2.0 07/15/17 06:01 90 22 125/85 (98) 98 Nasal Cannula 2.0 07/15/17 05:01 87 18 127/82 (97) 98 Nasal Cannula 2.0 07/15/17 04:01 36.8 83 13 118/73 (88) 93 Nasal Cannula 2.0 07/15/17 04:01 83 13 118/73 (88) 93 07/15/17 04:00 Nasal Cannula 2.0 07/15/17 03:01 88 16 129/83 (98) 100 Nasal Cannula 2.0 07/15/17 02:01 89 18 119/71 (87) 96 Nasal Cannula 2.0 07/15/17 01:01 89 17 117/82 (94) 99 Nasal Cannula 2.0 07/15/17 00:01 Nasal Cannula 2.0 07/15/17 00:01 36.6 90 22 122/80 (94) 98 Nasal Cannula 2.0 07/14/17 23:01 91 18 123/81 (95) 98 Nasal Cannula 2.0 07/14/17 22:01 79 20 98/66 (77) 99 Nasal Cannula 2.0 07/14/17 21:01 92 18 120/78 (92) 100 Nasal Cannula 2.0 07/14/17 20:18 88 20 116/79 (91) 96 Nasal Cannula 2.0 07/14/17 20:00 Nasal Cannula 2.0 07/14/17 20:00 91 20 98 Nasal Cannula 2.0 07/14/17 19:30 36.5 07/14/17 18:00 88 20 120/73 (89) 98 Nasal Cannula 2.0 07/14/17 16:00 36.6 89 20 107/73 (84) 97 Nasal Cannula 2.0 07/14/17 16:00 Nasal Cannula 2.0 07/14/17 15:54 89 22 100 Nasal Cannula 2.0 07/14/17 14:00 36.6 80 22 113/73 (86) 97 Nasal Cannula 2.0 Laboratory Results: Last 24 Hours Test 07/14/17 16:06 07/14/17 20:06 07/15/17 00:01 07/15/17 04:41 Bedside Glucose 110 mg/dl 119 mg/dl 132 mg/dl 131 mg/dl Test 07/15/17 05:34 07/15/17 07:47 07/15/17 11:29 White Blood Count 8.71 K/uL Red Blood Count 2.11 M/uL Hemoglobin 7.5 g/dL Hematocrit 24.6 % Mean Corpuscular Volume 116.6 fL Mean Corpuscular Hemoglobin 35.5 pg Mean Corpuscular Hemoglobin Concent 30.5 g/dl Platelet Count 120 K/uL Mean Platelet Volume 11.9 fL Neutrophils (%) (Auto) 81.1 % Lymphocytes (%) (Auto) 4.7 % Monocytes (%) (Auto) 9.5 % Eosinophils (%) (Auto) 1.5 % Basophils (%) (Auto) 0.1 % Neutrophils # (Auto) 7.06 K/uL Lymphocytes # (Auto) 0.41 K/uL Monocytes # (Auto) 0.83 K/uL Eosinophils # (Auto) 0.13 K/uL Basophils # (Auto) 0.01 K/uL Immature Granulocyte % (Auto) 3.1 % Immature Granulocyte # (Auto) 0.27 K/uL Nucleated RBC Absolute Count (auto) 0.03 K/uL Nucleated Red Blood Cells % 0.4 % Basophilic Stippling 1+ Anisocytosis PRESENT Macrocytosis PRESENT Pappenheimer Bodies OCCASIONAL Target Cells 1+ Prothrombin Time 11.4 SECONDS Prothromb Time International Ratio 1.1 Sodium Level 146 mmol/L Potassium Level 4.0 mmol/L Chloride Level 114 mmol/L Carbon Dioxide Level 24 mmol/L Anion Gap 8.0 mmol/L Blood Urea Nitrogen 74 mg/dl Creatinine 0.84 mg/dl Est Creatinine Clear Calc Drug Dose 98.4 ml/min Estimated GFR () 92.6 Estimated GFR (Non- 79.9 BUN/Creatinine Ratio 88.2 Random Glucose 131 mg/dl Calcium Level 8.2 mg/dl Magnesium Level 1.9 mg/dl Total Bilirubin 2.8 mg/dl Aspartate Amino Transf (AST/SGOT) 78 U/L Alanine Aminotransferase (ALT/SGPT) 62 U/L Alkaline Phosphatase 292 U/L Total Creatine Kinase 50 U/L Total Protein 5.2 gm/dl Albumin 1.7 gm/dl Globulin 3.5 gm/dl Albumin/Globulin Ratio 0.5 Lipase 274 U/L Bedside Glucose 127 mg/dl 125 mg/dl
--- NOTE | 2017-07-15 16:26 | Progress Note ---
Subjective Date of Service: Jul 15, 2017. Subjective Pt evaluation today including: conversation w/ patient, physical exam, chart review, lab review, conversation w/ advanced manufacturing consultant (critical care; speech), review of inpatient medication list Pain: when asked if she has pain she did not answer PO Intake: minimal, <10%; NG tube feedings at night Voiding: gil catheter in place no events overnight patient with eyes open during the visit but when asked questions she either did not respond or it took her a long time to do so when asked what her last name was she initially did not answer; on 2nd attempt she said "Hunter" all other questions were not answered by patient during the visit she had coffee via a straw and had immediate coughing and likely aspiration ROS cannot be obtained due to altered MS Problem List Medical Problems: (1) Abdominal pain Status: Acute (2) Acute pancreatitis Status: Acute (3) Alcohol abuse Status: Acute (4) Alcohol intoxication Status: Acute (5) Anemia Status: Acute (6) Anemia Status: Acute (7) Biliary obstruction Status: Acute (8) C. difficile colitis Status: Acute (9) C. difficile diarrhea Status: Acute (10) Chest pain Status: Acute (11) Contusion of multiple sites Status: Acute (12) Dehydration Status: Acute (13) Dehydration Status: Acute (14) Encounter for smoking cessation counseling Status: Acute (15) Epigastric abdominal pain Status: Acute (16) Fall Status: Acute (17) Fall due to slipping on ice or snow Status: Acute (18) Fracture of left distal radius Status: Acute (19) Hypocalcemia Status: Acute (20) Hypomagnesemia Status: Acute (21) Hypomagnesemia Status: Acute (22) Hypotension Status: Acute (23) Lactic acidosis Status: Acute (24) Liver failure Status: Acute (25) Pancreatitis Status: Acute Objective Vital Signs Date Time Temp Pulse Resp B/P (MAP) Pulse Ox O2 Delivery O2 Flow Rate FiO2 07/15/17 15:58 90 20 95 Nasal Cannula 2.0 07/15/17 14:00 88 22 115/77 (90) 98 Nasal Cannula 2.0 07/15/17 12:53 36.7 87 20 96 2.0 07/15/17 12:00 Nasal Cannula 2.0 07/15/17 12:00 36.7 87 20 104/75 (85) 96 Nasal Cannula 2.0 07/15/17 11:27 86 20 95 Nasal Cannula 2.0 07/15/17 10:00 93 14 130/88 (102) 96 Nasal Cannula 2.0 07/15/17 08:00 Nasal Cannula 2.0 07/15/17 08:00 36.6 75 20 127/83 (98) 93 Nasal Cannula 2.0 07/15/17 07:30 94 20 95 Nasal Cannula 2.0 07/15/17 06:01 90 22 125/85 (98) 98 Nasal Cannula 2.0 07/15/17 05:01 87 18 127/82 (97) 98 Nasal Cannula 2.0 07/15/17 04:01 36.8 83 13 118/73 (88) 93 Nasal Cannula 2.0 07/15/17 04:01 83 13 118/73 (88) 93 07/15/17 04:00 Nasal Cannula 2.0 07/15/17 03:01 88 16 129/83 (98) 100 Nasal Cannula 2.0 07/15/17 02:01 89 18 119/71 (87) 96 Nasal Cannula 2.0 07/15/17 01:01 89 17 117/82 (94) 99 Nasal Cannula 2.0 07/15/17 00:01 Nasal Cannula 2.0 07/15/17 00:01 36.6 90 22 122/80 (94) 98 Nasal Cannula 2.0 07/14/17 23:01 91 18 123/81 (95) 98 Nasal Cannula 2.0 07/14/17 22:01 79 20 98/66 (77) 99 Nasal Cannula 2.0 07/14/17 21:01 92 18 120/78 (92) 100 Nasal Cannula 2.0 07/14/17 20:18 88 20 116/79 (91) 96 Nasal Cannula 2.0 07/14/17 20:00 Nasal Cannula 2.0 07/14/17 20:00 91 20 98 Nasal Cannula 2.0 07/14/17 19:30 36.5 07/14/17 18:00 88 20 120/73 (89) 98 Nasal Cannula 2.0 Physical Exam General Appearance: + mild distress (mild tachypnea noted) ENT: pharynx normal Neck: no JVD (nothing obvious), + pertinent finding (right IJ CVC clean) Respiratory/Chest: + respiratory distress (tachypnea), + decreased breath sounds (bases), + wheezing Cardiovascular: regular rate, rhythm, no gallop, no murmur Abdomen: non tender, + distended (with fluid/anasarca), + hepatomegaly Extremities: + swelling (severe ANASARCA with edema from feet to the hips b/l ) Neurologic/Psychiatric: + pertinent finding (awake, but confused/slow to answer questions/encephalopathic; handgrips 4/5 b/l, but cannot move shoulder or hip girdle muscles) Skin: + pallor Laboratory Results Last 24 Hours Test 07/14/17 20:06 07/15/17 00:01 07/15/17 04:41 07/15/17 05:34 Bedside Glucose 119 mg/dl 132 mg/dl 131 mg/dl White Blood Count 8.71 K/uL Red Blood Count 2.11 M/uL Hemoglobin 7.5 g/dL Hematocrit 24.6 % Mean Corpuscular Volume 116.6 fL Mean Corpuscular Hemoglobin 35.5 pg Mean Corpuscular Hemoglobin Concent 30.5 g/dl Platelet Count 120 K/uL Mean Platelet Volume 11.9 fL Neutrophils (%) (Auto) 81.1 % Lymphocytes (%) (Auto) 4.7 % Monocytes (%) (Auto) 9.5 % Eosinophils (%) (Auto) 1.5 % Basophils (%) (Auto) 0.1 % Neutrophils # (Auto) 7.06 K/uL Lymphocytes # (Auto) 0.41 K/uL Monocytes # (Auto) 0.83 K/uL Eosinophils # (Auto) 0.13 K/uL Basophils # (Auto) 0.01 K/uL Immature Granulocyte % (Auto) 3.1 % Immature Granulocyte # (Auto) 0.27 K/uL Nucleated RBC Absolute Count (auto) 0.03 K/uL Nucleated Red Blood Cells % 0.4 % Basophilic Stippling 1+ Anisocytosis PRESENT Macrocytosis PRESENT Pappenheimer Bodies OCCASIONAL Target Cells 1+ Prothrombin Time 11.4 SECONDS Prothromb Time International Ratio 1.1 Sodium Level 146 mmol/L Potassium Level 4.0 mmol/L Chloride Level 114 mmol/L Carbon Dioxide Level 24 mmol/L Anion Gap 8.0 mmol/L Blood Urea Nitrogen 74 mg/dl Creatinine 0.84 mg/dl Est Creatinine Clear Calc Drug Dose 98.4 ml/min Estimated GFR () 92.6 Estimated GFR (Non- 79.9 BUN/Creatinine Ratio 88.2 Random Glucose 131 mg/dl Calcium Level 8.2 mg/dl Magnesium Level 1.9 mg/dl Total Bilirubin 2.8 mg/dl Aspartate Amino Transf (AST/SGOT) 78 U/L Alanine Aminotransferase (ALT/SGPT) 62 U/L Alkaline Phosphatase 292 U/L Total Creatine Kinase 50 U/L Total Protein 5.2 gm/dl Albumin 1.7 gm/dl Globulin 3.5 gm/dl Albumin/Globulin Ratio 0.5 Lipase 274 U/L Test 07/15/17 07:47 07/15/17 11:29 Bedside Glucose 127 mg/dl 125 mg/dl Assessment and Plan 52yo female with: 1. recent septic shock 2nd to pneumonia and c. diff colitis - former resolved and stools much improved. 2. pneumonia, possibly due to marisol albicans or gram negative etiology - completed copious amounts of IV antibiotics for gram neg etiology; now remains on caspofungin, day # 7/10, for marisol. 3. altered mental status/encephalopathy - ongoing. 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 Cont thiamine 200mg BID, MVI, and folic acid. TSH wnl. Ammonia wnl. Her prognosis is quite poor as she has not had any significant improvement in mental status over the last 3 days. The "MBD" can lead to a dementia like state. 4. severe c. diff colitis - recurrent - on slow vancomycin wean and IV flagyl. Will need to check with GI about duration of flagyl. Vanco wean over 4 weeks minimum. 5. acute hypoxic respiratory failure 2nd to pneumonia/ARDS - resolving, was on vent and successfully extubated; remains on NC O2 likely due to residual ARDS and pulmonary edema. Now receiving diuresis for massive anasarca/volume overload state. 6. acute alcoholic hepatitis - LFTs slowly normalizing; GI following. 7. hypokalemia & hypomagnesemia - repleted. 8. chronic anemia - possibly due in part from chronic GI blood loss - Tx if Hb < 7. Recent b12/folate wnl. Check iron studies AM. 9. thrombocytopenia - likely due to toxic effects from etoh and also from liver disease - daily CBC for stability. HIT ab negative. Platelets again improved today. 10. significant prerenal azotemia - meaghan baldwinip d/c, now on bolus lasix IV. BUN slowly improving; Cr stable. Cont diuresis. 11. severe protein calorie malnutrition - NG tube feedings at HS, diet as tolerated during the day, but eating very poorly. 12. h/o HTN - controlled off of anti-hypertensives. 13. coagulopathy - 2nd to #6 - resolved. 14. DVT proph - SCDs; chemical means contraindicated due to #9. 15. abdominal pain - lipase wnl. No pain today on exam. cont PPI twice daily. 16. profound deconditioning/weakness - could have critical illness myopathy. CPK wnl. 17. dysphagia - speech saw again today -- pureed diet w/ thin liquids recommended; NO STRAWS; aspiration precautions DNR PT, OT, speech following very, very poor prognosis even if she recovers spoke with daughter 07/14/17 left message for daughter 07/15/17 requesting family meeting tomorrow if the family is available tx to tele unit today can likely d/c central line, right neck, next 24 hours as she has PICC line Continued [facility] stay due to: abnormal vital signs, inadequate po fluid intake, voiding difficulties, ambulation difficulties, multiple IV medications needed, home environment unsafe for pt Discharge planning: uncertain
[2017-07-15] MEDS ORDERED: NURSING VERBAL MED ORDER ONE (17:15)
[2017-07-15] MEDS: PEPTAMEN 1.5 CAL 1000ML BAG NG SCH (20:12)
[2017-07-16] VITALS (10 sets, daily range): BP systolic 96–126; BP diastolic 65–84; PULSE 73–93; TEMP 36.3–36.7; O2SAT 94–100
--- NOTE | 2017-07-16 02:18 | Progress Note ---
Post ICU Progress Note Date & Time Jul 16, 2017 at 02:13 Vital Signs Vital Signs Past 12 Hours Date Time Temp Pulse Resp B/P (MAP) Pulse Ox O2 Delivery O2 Flow Rate FiO2 07/15/17 23:33 36.9 92 17 103/74 (84) 95 Nasal Cannula 2.0 Humidified Oxygen 07/15/17 19:36 89 18 96 Nasal Cannula 2.0 07/15/17 19:26 37.0 89 18 104/67 (79) 96 Nasal Cannula 2.0 07/15/17 16:00 36.5 85 18 107/72 (84) 96 Nasal Cannula 2.0 07/15/17 16:00 Nasal Cannula 2.0 07/15/17 15:58 90 20 95 Nasal Cannula 2.0 Notes Mental Status: alert / awake Nausea / Vomiting: improving with treatment Pain: improving with treatment Airway Patency, RR, SpO2: stable & adequate BP & HR: stable & adequate Patient is a 52-year-old female who has been admitted to the ICU for several days in the setting of ARDS requiring intubation for several days. Eventually, the patient was able to be extubated. She remained several liters positive, however she was actively diuresed throughout her stay. She remains weak and cognitively impaired. Her labs and imaging studies have improved. On evaluation today, the patient only reports feeling somewhat nauseated. Otherwise, the patient is slow to answer questions. Clinically, she has improved greatly over the past week. Consider outpatient follow up in 1 to 2 weeks with: Likely will require rehab [facility]. Repeat imaging needed: Per primary service. Follow up cultures: None at this time Reviewed progress notes, labs, and inpatient medication list Continue current management Additional recommendations: None at this time. Thank you for allowing us to participate in the care of this patient. At this time, Critical Care Services will sign off on this case. Please feel free to reconsult as needed. Consults & Procedures Consultants: GI: Dr Joseph Vascular: Dr Baron General Surgery: Dr. Choe IV team for PICC line Procedures: 07/01/17: left femoral TLC 07/01/17: left femoral a-line 07/01/17: intubation 07/09/17: R IJ placement
[2017-07-16] MEDS ORDERED: METHYLPREDNISOLONE IV 40 MG in SYRINGE 0 ML IV SCH (04:00)
[2017-07-16] MEDS: VANCOMYCIN HCL 500 MG/10ML SOLN PO SCH ×4 (04:49→22:14)
[2017-07-16] MEDS: METRONIDAZOLE / NSS 500 MG in PREMIXED NSS 100 ML IV SCH ×3 (04:49→20:36)
[2017-07-16 05:13] LABS: HEMATOCRIT 23.9 % (37-47); HEMOGLOBIN 7.2 g/dL (12.0-16.0); MEAN CELL VOLUME 117.2 fL (80-100); MEAN CORPUSCULAR HEMOGLOBIN 35.3 pg (25-34); MEAN CORPUSCULAR HGB CONC 30.1 g/dl (32-36); NUCLEATED RED BLOOD CELL ABS 0.04 K/uL (0-0); PLATELET COUNT 127 K/uL (130-400); RED CELL DISTRIBUTION WIDTH CV 31.1 % (11.5-14.5); RED CELL DISTRIBUTION WIDTH SD 128.9 fL (36.4-46.3); WHITE BLOOD COUNT 6.62 K/uL (4.8-10.8)
[2017-07-16 05:14] LABS: INR 1.1 (0.9-1.1)
[2017-07-16 05:15] LABS: ALBUMIN 1.7 gm/dl (3.4-5.0); CREATININE 0.8 mg/dl (0.60-1.20); POTASSIUM 4.5 mmol/L (3.5-5.1)
[2017-07-16 05:18] LABS: TOTAL PROTEIN 5.3 gm/dl (6.4-8.2)
[2017-07-16 05:24] LABS: BASO % 0.2 %; BASO ABS # 0.01 K/uL (0-0.2); EOS % 2.7 %; EOS ABS # 0.18 K/uL (0-0.5); IG# 0.12 K/uL (0.00-0.02); LYMPH % 6.6 %; LYMPH ABS # 0.44 K/uL (1.2-3.4); MONO % 7.1 %; MONO ABS # 0.47 K/uL (0.11-0.59); NEUT % 81.6 %
[2017-07-16] MEDS: FUROSEMIDE INJ 40 MG in SYRINGE 0 ML IV SCH (06:20)
[2017-07-16] MEDS: ALBUT/IPRATROP 3MG/0.5MG NEB 3 ML VIAL INH SCH ×4 (06:54→19:35)
[2017-07-16] MEDS: [UNRECOGNIZED DRUG - REMARK] SCH (07:10)
[2017-07-16] MEDS: FoLIC ACID INJ 1 MG in SYRINGE 9.8 ML IV SCH (08:04)
[2017-07-16] MEDS: POTASSIUM CHLORIDE 20 MEQ/15 ML UDC PO SCH ×2 (08:04→20:36)
[2017-07-16] MEDS: THIAMINE HCL 100 MG TAB PO SCH ×2 (08:04→20:35)
[2017-07-16] MEDS: CEROVITE ADV FORMULA TAB PO SCH ×2 (08:04→20:35)
[2017-07-16] MEDS: PANTOprazole INJ 40 MG in SYRINGE 0 ML IV SCH (08:05)
[2017-07-16] MEDS: CASPOFUNGIN INJ 50 MG in SODIUM CHLORIDE 0.9% 100ML 100 ML IV SCH (10:52)
[2017-07-16] MEDS ORDERED: NURSING VERBAL MED ORDER ONE (16:45)
--- NOTE | 2017-07-16 17:14 | PROGRESS NOTE ---
DATE: 07/16/2017 SUBJECTIVE: The patient appears very weak with decreased appetite. She is getting a nutritional supplement for her malnutrition. OBJECTIVE: VITAL SIGNS: Normal. She is afebrile. EXTREMITIES: Clinically, she has got a lot of edema. NEUROLOGICAL: She is malnourished and weak. She is oriented to person, place and to the year, but her speech is soft and delayed. LABORATORY DATA: Her creatinine is 0.84. INR is 1.1 and bilirubin is 2.8 giving a MELD score of a range of about 8-10 which is not very bad. IMPRESSION AND PLAN: The patient has got alcoholic liver disease with cirrhosis, although her MELD score is not really too bad. She is very debilitated, weak and malnourished, which will take some time to correct. She is tapering her vancomycin for Clostridium difficile over several weeks to prevent relapse and no further suggestions at this time.
[2017-07-16] MEDS: LANSOPRAZOLE SOLUTAB 15 MG PO SCH (20:35)
[2017-07-17] VITALS (9 sets, daily range): BP systolic 112–118; BP diastolic 75–84; PULSE 80–95; TEMP 36.6–36.7; O2SAT 94–98
[2017-07-17] MEDS: METRONIDAZOLE / NSS 500 MG in PREMIXED NSS 100 ML IV SCH ×3 (04:05→19:44)
[2017-07-17] MEDS: VANCOMYCIN HCL 500 MG/10ML SOLN PO SCH ×4 (04:09→22:39)
--- NOTE | 2017-07-17 05:16 | Progress Note ---
Subjective Date of Service: late entry for visit Jul 16, 2017. Subjective Pt evaluation today including: conversation w/ patient, conversation w/ family (mother & daughter ), physical exam, chart review, lab review, review of inpatient medication list Pain: stomach PO Intake: <10% Voiding: gil catheter in place tele stable overnight during the visit she is sitting in the bedside chair she is more awake today than yesterday and is conversing better albeit she is still confused thinking it is October when asked why she is in the hospital she says "because I am sick" I had a lengthy discussion with her mother/daughter today I discussed w/ them the current issues - altered MS, poor oral intake/ malnutrition, volume overload/3rd spacing, 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 family reports she likely would be very upset about SNF placement and probably would not want a PEG tube they report that for several months prior to this admission she had declined both physically and mentally Problem List Medical Problems: (1) Abdominal pain Status: Acute (2) Acute pancreatitis Status: Acute (3) Alcohol abuse Status: Acute (4) Alcohol intoxication Status: Acute (5) Anemia Status: Acute (6) Anemia Status: Acute (7) Biliary obstruction Status: Acute (8) C. difficile colitis Status: Acute (9) C. difficile diarrhea Status: Acute (10) Chest pain Status: Acute (11) Contusion of multiple sites Status: Acute (12) Dehydration Status: Acute (13) Dehydration Status: Acute (14) Encounter for smoking cessation counseling Status: Acute (15) Epigastric abdominal pain Status: Acute (16) Fall Status: Acute (17) Fall due to slipping on ice or snow Status: Acute (18) Fracture of left distal radius Status: Acute (19) Hypocalcemia Status: Acute (20) Hypomagnesemia Status: Acute (21) Hypomagnesemia Status: Acute (22) Hypotension Status: Acute (23) Lactic acidosis Status: Acute (24) Liver failure Status: Acute (25) Pancreatitis Status: Acute Review of Systems Respiratory: No shortness of breath Cardiac: No chest pain Abdomen: + pain Objective Vital Signs Date Time Temp Pulse Resp B/P (MAP) Pulse Ox O2 Delivery O2 Flow Rate FiO2 07/17/17 04:00 Nasal Cannula 2.0 Humidified Oxygen 07/17/17 03:29 36.7 80 17 112/75 (87) 98 Nasal Cannula 2.0 07/17/17 00:00 Nasal Cannula 2.0 Humidified Oxygen 07/16/17 23:42 36.7 93 17 106/73 (84) 100 Nasal Cannula 2.0 Humidified Oxygen 07/16/17 20:03 36.7 89 18 126/84 (98) 96 Nasal Cannula 2.0 07/16/17 19:37 86 16 94 Nasal Cannula 2.0 07/16/17 16:00 Nasal Cannula 2.0 07/16/17 15:36 36.3 85 24 108/74 (85) 97 Nasal Cannula 2.0 07/16/17 15:20 87 18 95 Nasal Cannula 2.0 07/16/17 11:13 85 18 96 Nasal Cannula 2.0 07/16/17 10:47 36.5 92 20 111/76 (88) 97 Nasal Cannula 2.5 07/16/17 08:00 Nasal Cannula 2.0 07/16/17 07:51 36.7 73 20 99/66 (77) 94 Nasal Cannula 2.0 07/16/17 07:08 86 18 94 Nasal Cannula 2.0 Physical Exam General Appearance: + mild distress (tachypneic), + pertinent finding (more awake, more conversive today) ENT: pharynx normal Neck: no JVD (nothing obvious on exam) Respiratory/Chest: + wheezing, + pertinent finding (course BS b/l with some rales and mild tachypnea) Cardiovascular: regular rate, rhythm, no gallop, no murmur Abdomen: + distended, + tenderness (epigastric region), + hepatomegaly Extremities: + pedal edema, + swelling (massive ANASARCA x 4 exts) Neurologic/Psychiatric: alert, + disoriented, + pertinent finding (profound proximal muscle weakness of hips and shoulders; can move toes and 4/5 handgrip b /l ) Laboratory Results Last 24 Hours Test 07/17/17 04:56 Assessment and Plan 52yo female with: 1. recent septic shock 2nd to pneumonia and c. diff colitis - former resolved and stools much improved. Currently on prolonged vanco taper. 2. pneumonia, possibly due to marisol albicans or gram negative etiology - completed copious amounts of IV antibiotics for gram neg etiology; now remains on caspofungin, day # 8/10, for marisol. 3. altered mental status/encephalopathy - ongoing. 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 Cont thiamine 200mg BID, MVI, and folic acid. TSH wnl. Ammonia wnl. Her prognosis for the MBD is poor - severe cases can lead to a permanent dementia type state. I explained this to the family today. 4. severe c. diff colitis - recurrent - on slow vancomycin wean and IV flagyl. Will need to check with GI about duration of flagyl. Vanco wean over 4 weeks minimum. 5. acute hypoxic respiratory failure 2nd to pneumonia/ARDS - resolving, was on vent and successfully extubated; remains on NC O2 likely due to residual ARDS and pulmonary edema. Due to rising hypernatremia will place diuresis on hold for now. 6. acute alcoholic hepatitis - LFTs slowly normalizing; GI following. 7. hypokalemia & hypomagnesemia - repleted. Repeat mag in am. 8. chronic anemia - possibly due in part from chronic GI blood loss - Tx if Hb < 7. Recent b12/folate wnl. Iron studies satisfactory with Fe sat>20%. 9. thrombocytopenia - likely due to toxic effects from etoh and also from liver disease - daily CBC for stability. HIT ab negative. Platelets again improved today. 10. significant prerenal azotemia - due to worsening Na will place lasix on hold for the rest of the day; re-eval in am. 11. severe protein calorie malnutrition - will hold NG tube feedings tonight and see if fasting her overnight will perk her appetite tomorrow am. 12. h/o HTN - controlled off of anti-hypertensives. 13. coagulopathy - 2nd to #6 - resolved. 14. DVT proph - SCDs; chemical means contraindicated due to #9. 15. abdominal pain - lipase wnl but I question if she could have chronic pancreatitis?? Remains on PPI bid. 16. profound deconditioning/weakness - could have critical illness myopathy. CPK wnl. 17. dysphagia - speech saw again -- pureed diet w/ thin liquids recommended; NO STRAWS; aspiration precautions DNR PT, OT, speech following very, very poor prognosis even if she recovers lengthy discussion today held with pt's mother and daughter reviewed all major problems - lack of appetite, malnutrition, critical illness myopathy, MBD on the MRI brain, altered MS, etc discussed prognosis, chances for recovery, feeding tube (permanent), etc family thinks she would be very unhappy about SNF placement and likely would not want a PEG tube I told them I thought we would have a good sense about recovery over the next 2- 3 days d/c right IJ central line today leave PICC intact total time today about 60 minutes Continued [facility] stay due to: abnormal vital signs, inadequate po fluid intake, voiding difficulties, ambulation difficulties, multiple IV medications needed, home environment unsafe for pt Discharge planning: [facility] facility
[2017-07-17 06:01] LABS: HEMATOCRIT 23.5 % (37-47); HEMOGLOBIN 7.2 g/dL (12.0-16.0); MEAN CELL VOLUME 119.3 fL (80-100); MEAN CORPUSCULAR HEMOGLOBIN 36.5 pg (25-34); MEAN CORPUSCULAR HGB CONC 30.6 g/dl (32-36); MEAN PLATELET VOLUME 11.2 fL (7.4-10.4); NUCLEATED RED BLOOD CELL ABS 0.02 K/uL (0-0); PLATELET COUNT 121 K/uL (130-400); RED CELL DISTRIBUTION WIDTH CV 29.4 % (11.5-14.5); RED CELL DISTRIBUTION WIDTH SD 122.7 fL (36.4-46.3); WHITE BLOOD COUNT 4.56 K/uL (4.8-10.8)
[2017-07-17 06:33] LABS: CALCIUM 8.2 mg/dl (8.5-10.1); CREATININE 0.64 mg/dl (0.60-1.20); POTASSIUM 4.8 mmol/L (3.5-5.1)
[2017-07-17] MEDS: ALBUT/IPRATROP 3MG/0.5MG NEB 3 ML VIAL INH SCH ×4 (07:17→19:05)
[2017-07-17] MEDS: POTASSIUM CHLORIDE 20 MEQ/15 ML UDC PO SCH ×2 (08:52→19:45)
[2017-07-17] MEDS: FoLIC ACID INJ 1 MG in SYRINGE 9.8 ML IV SCH (08:52)
[2017-07-17] MEDS: THIAMINE HCL 100 MG TAB PO SCH ×2 (08:53→19:47)
[2017-07-17] MEDS: LANSOPRAZOLE SOLUTAB 15 MG PO SCH ×2 (08:53→19:46)
[2017-07-17] MEDS: MAGNESIUM SULFATE 1GM / D5W 1 GM in PREMIXED IN D5W 100 ML IV SCH ×2 (10:06→11:21)
[2017-07-17] MEDS: CASPOFUNGIN INJ 50 MG in SODIUM CHLORIDE 0.9% 100ML 100 ML IV SCH (13:04)
--- NOTE | 2017-07-17 15:29 | Infectious Disease Progress Nt ---
Progress Note Date of Service Jul 17, 2017. Subjective Pt evaluation today including: conversation w/ patient, physical exam, chart review, lab review, review of studies, conversation w/ financial management consultant, review of inpatient medication list More alert but remains confused. Remains afebrile. No worsening diarrhea. No other obvious new complaints. All Other Systems: Reviewed and Negative Medications Current Inpatient Medications Medications (Trade) Dose Ordered Sig/Razia Route Start Time Stop Time Status Last Admin Dose Admin Ondansetron HCl (Zofran Inj) 4 mg Q6H PRN IV 06/27/17 17:46 07/27/17 17:45 Albuterol/ Ipratropium (Duoneb) 3 ml Q4 PRN INH 07/01/17 05:30 07/31/17 05:29 Future Hold 07/01/17 10:06 3 ML Heparin Sodium (Porcine) (Heparin 10 Unit/ ml 5 ml Flush) 5 ml PRN PRN FLUSH 07/04/17 20:45 08/03/17 20:44 07/17/17 15:19 5 ML Metronidazole 500 mg/Prmx 100 ml @ 100 mls/hr Q8H IV 07/09/17 12:00 07/23/17 11:59 07/17/17 13:21 100 MLS/HR Glucose (Glucose 40% Gel) 15-30 GRAMS 15 GRAMS... UD PRN PO 07/09/17 14:45 08/08/17 14:44 Glucose (Glucose Chew Tab) 4-8 Tablets 4 Tabl... UD PRN PO 07/09/17 14:45 08/08/17 14:44 Dextrose (Dextrose 50% 50ML Syringe) 25-50ML OF 50% DW IV FOR... UD PRN IV 07/09/17 14:45 08/08/17 14:44 07/09/17 14:20 25 ML Glucagon (Glucagon Inj) 1 mg UD PRN SQ 07/09/17 14:45 08/08/17 14:44 Caspofungin 50 mg/ Sodium Chloride 110 ml @ 110 mls/hr Q24H IV 07/12/17 11:00 08/08/17 10:59 07/17/17 13:04 110 MLS/HR Vancomycin HCl (Vancomycin Oral Soln) 500 mg Q6H PO 07/12/17 16:00 07/22/17 15:59 07/17/17 15:21 500 MG Albuterol/ Ipratropium (Duoneb) 3 ml QIDR INH 07/11/17 20:00 08/10/17 19:59 07/17/17 11:02 3 ML Multivitamins/ Minerals (Multivitamin W/ Minerals Tab) 1 tab QAM PO 07/13/17 09:00 08/12/17 08:59 07/16/17 20:35 1 TAB Folic Acid 1 mg/ Syringe 10 ml @ 5 mls/min QAM IV 07/13/17 09:00 08/12/17 08:59 07/17/17 08:52 5 MLS/MIN Potassium Chloride (Coreen Ciel Elix) 40 meq BID PO 07/13/17 09:00 08/12/17 08:59 07/17/17 08:52 40 MEQ Enteral Nutritional Formula (Peptamen 1.5) 1,000 ml DAILY@1900 NG 07/13/17 19:00 08/12/17 18:59 Future hold 07/15/17 20:12 1,000 ML Miscellaneous (Stop Order) 1 ea DAILY@0700 N/A 07/14/17 07:00 08/13/17 06:59 Future hold 07/16/17 07:10 1 EA Furosemide 40 mg/ Syringe 4 ml @ 4 mls/min Q8 IV 07/15/17 14:00 08/13/17 13:59 Future Hold 07/16/17 06:20 4 MLS/MIN Thiamine HCl (Vitamin B-1 Tab) 200 mg BID PO 07/15/17 09:00 08/14/17 08:59 07/17/17 08:53 200 MG Lansoprazole (Prevacid Solutab) 30 mg BID PO 07/16/17 21:00 08/15/17 20:59 07/17/17 08:53 30 MG Objective Vital Signs Date Time Temp Pulse Resp B/P (MAP) Pulse Ox O2 Delivery O2 Flow Rate FiO2 07/17/17 13:59 36.6 83 18 115/84 (94) 96 Room Air 07/17/17 12:21 36.6 89 20 97 2.0 07/17/17 11:02 89 20 97 Nasal Cannula 2.0 07/17/17 08:00 98 Nasal Cannula 2.0 07/17/17 08:00 36.6 90 22 113/80 (91) 98 Nasal Cannula 2.0 07/17/17 07:17 86 18 97 Nasal Cannula 2.0 07/17/17 04:00 Nasal Cannula 2.0 Humidified Oxygen 07/17/17 03:29 36.7 80 17 112/75 (87) 98 Nasal Cannula 2.0 07/17/17 00:00 Nasal Cannula 2.0 Humidified Oxygen 07/16/17 23:42 36.7 93 17 106/73 (84) 100 Nasal Cannula 2.0 Humidified Oxygen 07/16/17 20:03 36.7 89 18 126/84 (98) 96 Nasal Cannula 2.0 07/16/17 19:37 86 16 94 Nasal Cannula 2.0 07/16/17 16:00 Nasal Cannula 2.0 07/16/17 15:36 36.3 85 24 108/74 (85) 97 Nasal Cannula 2.0 Physical Exam General Appearance: no apparent distress, + pertinent finding (Chronically ill- appearing) Eyes: normal inspection, EOMI, + abnormal sclerae exam (Anicteric) ENT: normal ENT inspection, pharynx normal Neck: supple, no adenopathy, thyroid normal, trachea midline Respiratory/Chest: chest non-tender, lungs clear, normal breath sounds, no respiratory distress Cardiovascular: regular rate, rhythm, no gallop, no murmur Abdomen: normal bowel sounds, non tender, soft, + hepatomegaly Extremities: non-tender, no calf tenderness Neurologic/Psychiatric: alert, + disoriented Skin: normal color, warm/dry, no rash, + jaundice Lymphatic: no adenopathy Laboratory Results Last 24 Hours Test 07/17/17 05:31 White Blood Count 4.56 K/uL Red Blood Count 1.97 M/uL Hemoglobin 7.2 g/dL Hematocrit 23.5 % Mean Corpuscular Volume 119.3 fL Mean Corpuscular Hemoglobin 36.5 pg Mean Corpuscular Hemoglobin Concent 30.6 g/dl RDW Standard Deviation 122.7 fL RDW Coefficient of Variation 29.4 % Platelet Count 121 K/uL Mean Platelet Volume 11.2 fL Nucleated RBC Absolute Count (auto) 0.02 K/uL Nucleated Red Blood Cells % 0.4 % Sodium Level 149 mmol/L Potassium Level 4.8 mmol/L Chloride Level 116 mmol/L Carbon Dioxide Level 27 mmol/L Anion Gap 6.0 mmol/L Blood Urea Nitrogen 65 mg/dl Creatinine 0.64 mg/dl Est Creatinine Clear Calc Drug Dose 125.9 ml/min Estimated GFR () 118.9 Estimated GFR (Non- 102.6 BUN/Creatinine Ratio 100.5 Random Glucose 99 mg/dl Calcium Level 8.2 mg/dl Magnesium Level 1.6 mg/dl Assessment and Plan 52-year-old female critically ill with ischemic colitis versus C difficile infection, probable ARDS with respiratory failure,. White count has improved with addition of caspofungin, suggests possibility of disseminated fungal infection. Complete 10 day course. Continue vancomycin for C difficile infection with full long taper. I think that the metronidazole can be discontinued. Will follow
[2017-07-17] MEDS: PEPTAMEN 1.5 CAL 1000ML BAG NG SCH (18:46)
[2017-07-17] MEDS: RASPBERRY SYRUP 5 ML UDP PO SCH (22:00)
--- NOTE | 2017-07-17 22:21 | Progress Note ---
Subjective Date of Service: Jul 17, 2017. Subjective Pt evaluation today including: conversation w/ patient, conversation w/ family (daughter Chloe by phone), physical exam, chart review, lab review Pain: none voiced by patient PO Intake: minimal liquid, nearly 0% of food Voiding: gli catheter in place tele stable overnight no issues liquid diarrhea continues profound weakness continues she is awake during my visit - knew it was June 2017 and she was in the hospital with the nurse present in the room I told Ms. Harrison my concern about her lack of nutrition I asked her 2-3x's if she would want a permanent feeding tube she ultimately shook her head "no" Problem List Medical Problems: (1) Abdominal pain Status: Acute (2) Acute pancreatitis Status: Acute (3) Alcohol abuse Status: Acute (4) Alcohol intoxication Status: Acute (5) Anemia Status: Acute (6) Anemia Status: Acute (7) Biliary obstruction Status: Acute (8) C. difficile colitis Status: Acute (9) C. difficile diarrhea Status: Acute (10) Chest pain Status: Acute (11) Contusion of multiple sites Status: Acute (12) Dehydration Status: Acute (13) Dehydration Status: Acute (14) Encounter for smoking cessation counseling Status: Acute (15) Epigastric abdominal pain Status: Acute (16) Fall Status: Acute (17) Fall due to slipping on ice or snow Status: Acute (18) Fracture of left distal radius Status: Acute (19) Hypocalcemia Status: Acute (20) Hypomagnesemia Status: Acute (21) Hypomagnesemia Status: Acute (22) Hypotension Status: Acute (23) Lactic acidosis Status: Acute (24) Liver failure Status: Acute (25) Pancreatitis Status: Acute Review of Systems Respiratory: No shortness of breath Cardiac: No chest pain Abdomen: No pain Objective Vital Signs Date Time Temp Pulse Resp B/P (MAP) Pulse Ox O2 Delivery O2 Flow Rate FiO2 07/17/17 19:06 83 20 94 Nasal Cannula 2.0 07/17/17 15:31 82 20 94 Nasal Cannula 2.0 07/17/17 15:15 Nasal Cannula 2.0 07/17/17 13:59 36.6 83 18 115/84 (94) 96 Room Air 07/17/17 12:21 36.6 89 20 97 2.0 07/17/17 11:02 89 20 97 Nasal Cannula 2.0 07/17/17 08:00 98 Nasal Cannula 2.0 07/17/17 08:00 36.6 90 22 113/80 (91) 98 Nasal Cannula 2.0 07/17/17 07:17 86 18 97 Nasal Cannula 2.0 07/17/17 04:00 Nasal Cannula 2.0 Humidified Oxygen 07/17/17 03:29 36.7 80 17 112/75 (87) 98 Nasal Cannula 2.0 07/17/17 00:00 Nasal Cannula 2.0 Humidified Oxygen 07/16/17 23:42 36.7 93 17 106/73 (84) 100 Nasal Cannula 2.0 Humidified Oxygen Physical Exam General Appearance: + pertinent finding (ill-appearing, takes long time to answer questions, slow speech) Eyes: + abnormal sclerae exam (mild icterus) ENT: pharynx normal Neck: no JVD Respiratory/Chest: no respiratory distress, no accessory muscle use, + decreased breath sounds (both bases, much worse on right), + crackles, + wheezing Cardiovascular: regular rate, rhythm, no gallop, no murmur Abdomen: normal bowel sounds, non tender, + distended, + hepatomegaly Extremities: + swelling (severe ANASARCA Of all 4 limbs) Neurologic/Psychiatric: alert, oriented x 3, + motor weakness (proximal hip/ shoulder muscles --- no change from prior exams) Skin: + pallor Laboratory Results Last 24 Hours Test 07/17/17 05:31 White Blood Count 4.56 K/uL Red Blood Count 1.97 M/uL Hemoglobin 7.2 g/dL Hematocrit 23.5 % Mean Corpuscular Volume 119.3 fL Mean Corpuscular Hemoglobin 36.5 pg Mean Corpuscular Hemoglobin Concent 30.6 g/dl RDW Standard Deviation 122.7 fL RDW Coefficient of Variation 29.4 % Platelet Count 121 K/uL Mean Platelet Volume 11.2 fL Nucleated RBC Absolute Count (auto) 0.02 K/uL Nucleated Red Blood Cells % 0.4 % Sodium Level 149 mmol/L Potassium Level 4.8 mmol/L Chloride Level 116 mmol/L Carbon Dioxide Level 27 mmol/L Anion Gap 6.0 mmol/L Blood Urea Nitrogen 65 mg/dl Creatinine 0.64 mg/dl Est Creatinine Clear Calc Drug Dose 125.9 ml/min Estimated GFR () 118.9 Estimated GFR (Non- 102.6 BUN/Creatinine Ratio 100.5 Random Glucose 99 mg/dl Calcium Level 8.2 mg/dl Magnesium Level 1.6 mg/dl Assessment and Plan 52yo female with: 1. recent septic shock 2nd to pneumonia and c. diff colitis - former resolved and stools much improved. Currently on prolonged vanco taper. IV flagyl to be d/c at recommendation of Dr. Wu. 2. pneumonia, possibly due to marisol albicans or gram negative etiology - completed copious amounts of IV antibiotics for gram neg etiology; now remains on caspofungin, day # 9/10, for marisol. d/c fungal coverage tomorrow. 3. altered mental status/encephalopathy - improved, but still with slow speech and difficulty answering questions at times. Main cause of current cognitive issue is Marchiafava Bignami disease (MBD) based on her MRI this past week ( corpus collosum damage in setting of severe etoh abuse and nutritional deficiencies). Cont thiamine 200mg BID, MVI, and folic acid. TSH wnl. Ammonia wnl. Her prognosis for the MBD is poor - severe cases can sometimes lead to a permanent dementia type state with cognitive impairment. I explained this to the family. 4. severe c. diff colitis - recurrent - on slow vancomycin wean over 4 weeks minimum. 5. acute hypoxic respiratory failure 2nd to pneumonia/ARDS - resolving, was on vent and successfully extubated; remains on NC O2 likely due to residual ARDS and pulmonary edema. Likely has pleural effusions as well. Due to rising hypernatremia in the face of elevated BUN I have placed diuresis on hold for now. 6. acute alcoholic hepatitis - LFTs slowly normalizing; GI following. 7. hypokalemia & hypomagnesemia - replete her low mag, repeat level AM. 8. chronic anemia - possibly due in part from chronic GI blood loss - Tx if Hb < 7. Recent b12/folate wnl. Iron studies satisfactory with Fe sat>20%. 9. thrombocytopenia - likely due to toxic effects from etoh and also from liver disease - daily CBC for stability. HIT ab negative. Platelets stable today. 10. significant prerenal azotemia - due to worsening Na lasix on hold. 11. severe protein calorie malnutrition - despite holding NG tube feedings last night her appetite was no different today. Will resume her tube feedings. Could consider appetite stimulant but poor candidate for marinol or megace. Could consider low-dose prednisone but will hold off on that. Her family feels she would NOT want PEG, and when the patient was asked this question directly today she shook her head NO to a PEG. 12. h/o HTN - controlled off of anti-hypertensives. 13. coagulopathy - 2nd to #6 - resolved. 14. DVT proph - SCDs; chemical means contraindicated due to #9. 15. abdominal pain - lipase wnl but I question if she could have chronic pancreatitis?? Remains on PPI bid. Overall improved however. 16. profound deconditioning/weakness - likely critical illness myopathy. CPK wnl. 17. dysphagia - speech saw again -- pureed diet w/ thin liquids recommended; NO STRAWS; aspiration precautions DNR PT, OT, speech following very, very poor prognosis even if she recovers lengthy discussion held with pt's mother and daughter 07/16 another discussion held with pt's daughter on 07/17 by phone I recommended we re-consult palliative care; daughter ok with such at this time I believe we are moving towards palliative care/hospice especially if PEG will not be pursued. reconsult palliative care move to med/surg Continued [facility] stay due to: inadequate po fluid intake, voiding difficulties, ambulation difficulties, multiple IV medications needed, home environment unsafe for pt Discharge planning: [facility] facility
[2017-07-18] VITALS (9 sets, daily range): BP systolic 106–121; BP diastolic 72–87; PULSE 91–95; TEMP 36.4–36.5; O2SAT 90–97
[2017-07-18] MEDS: ALBUT/IPRATROP 3MG/0.5MG NEB 3 ML VIAL INH SCH ×5 (03:18→19:40)
[2017-07-18] MEDS: RASPBERRY SYRUP 5 ML UDP PO SCH ×4 (04:38→22:19)
[2017-07-18] MEDS: VANCOMYCIN HCL 500 MG/10ML SOLN PO SCH ×4 (04:39→22:19)
[2017-07-18 07:07] LABS: CALCIUM 8.5 mg/dl (8.5-10.1); CREATININE 0.66 mg/dl (0.60-1.20)
[2017-07-18 07:23] LABS: HEMATOCRIT 24.3 % (37-47); HEMOGLOBIN 7.3 g/dL (12.0-16.0); MEAN CELL VOLUME 119.1 fL (80-100); MEAN CORPUSCULAR HEMOGLOBIN 35.8 pg (25-34); MEAN PLATELET VOLUME 12.2 fL (7.4-10.4); PLATELET COUNT 134 K/uL (130-400); RED CELL DISTRIBUTION WIDTH CV 28.3 % (11.5-14.5); RED CELL DISTRIBUTION WIDTH SD 117.7 fL (36.4-46.3); WHITE BLOOD COUNT 5.11 K/uL (4.8-10.8)
[2017-07-18] MEDS: [UNRECOGNIZED DRUG - REMARK] SCH (07:30)
[2017-07-18] MEDS: FoLIC ACID INJ 1 MG in SYRINGE 9.8 ML IV SCH (08:12)
[2017-07-18] MEDS: POTASSIUM CHLORIDE 20 MEQ/15 ML UDC PO SCH ×2 (08:13→20:00)
[2017-07-18] MEDS: CEROVITE ADV FORMULA TAB PO SCH (08:14)
[2017-07-18] MEDS: THIAMINE HCL 100 MG TAB PO SCH ×2 (08:15→20:00)
[2017-07-18] MEDS: LANSOPRAZOLE SOLUTAB 15 MG PO SCH ×2 (08:15→20:00)
[2017-07-18] MEDS ORDERED: NURSING VERBAL MED ORDER ONE (09:30)
[2017-07-18] MEDS ORDERED: MICONAZOLE NITRATE POWDER 43 GM EXT PRN (09:45)
[2017-07-18] MEDS ORDERED: SODIUM CHLORIDE 0.9% IV SCH (11:00)
[2017-07-18] MEDS ORDERED: CASPOFUNGIN IV SCH (11:00)
[2017-07-18] MEDS: PEPTAMEN 1.5 CAL 1000ML BAG NG SCH (19:00)
[2017-07-19] VITALS (7 sets, daily range): BP systolic 108–124; BP diastolic 78–85; PULSE 82–92; TEMP 35.7–36.5; O2SAT 93–100
--- NOTE | 2017-07-19 00:39 | Hospitalist Progress Note ---
Hospitalist Progress Note Date of Service Jul 18, 2017. Subjective Pt evaluation today including: conversation w/ patient, conversation w/ family Voiding: gil catheter in place Pt more interactive today, responds appropriately to questions. Is feeling hungry and eating ice cream when I came to see her. Tolerating NGT feeds well. She is able to move her arms and held a cup in her hands today with assistance as per her mom. Pt denies abd pain, denies CP or SOB Constitutional: No fever All Other Systems: Reviewed and Negative Objective Vital Signs Date Time Temp Pulse Resp B/P (MAP) Pulse Ox O2 Delivery O2 Flow Rate FiO2 07/18/17 23:23 36.5 95 18 121/87 (98) 97 Room Air 07/18/17 22:02 92 20 94 Nasal Cannula 2.0 07/18/17 16:19 36.5 92 24 116/82 (93) 90 Nasal Cannula 2.0 07/18/17 15:11 95 20 90 Nasal Cannula 2.0 07/18/17 12:45 Nasal Cannula 2.0 07/18/17 11:20 92 20 93 Nasal Cannula 2.0 07/18/17 09:30 93 Nasal Cannula 2.0 07/18/17 07:30 Nasal Cannula 07/18/17 07:30 36.4 94 17 106/72 (83) 93 Nasal Cannula 2.0 07/18/17 06:57 91 20 93 Nasal Cannula 2.0 07/18/17 03:22 92 20 92 Nasal Cannula 2.0 07/18/17 00:30 Nasal Cannula 2.0 Physical Exam General Appearance: WD/WN, no apparent distress (but appears much older than given age) Eyes: normal inspection, sclerae normal ENT: hearing grossly normal, pharynx normal, + pertinent finding (NGT in place) Neck: trachea midline Respiratory/Chest: no respiratory distress, no accessory muscle use, + decreased breath sounds (at bases bilat) Cardiovascular: regular rate, rhythm, no murmur, + pertinent finding (2+ pitting edema of the legs to the thighs bilat, trace edema in UEs bilat significantly improved from previous) Abdomen: normal bowel sounds, non tender, soft Extremities: + swelling (as above) Neurologic/Psychiatric: alert, normal mood/affect, oriented x 3, + pertinent finding (able to wiggle toes and plantar/dorsiflex bilateral ankles, but cannot straight leg raise; able to raise arms against gravity but not against resistnace) Skin: normal color, warm/dry, no rash Laboratory Results Last 24 Hours Test 07/18/17 05:04 White Blood Count 5.11 K/uL Red Blood Count 2.04 M/uL Hemoglobin 7.3 g/dL Hematocrit 24.3 % Mean Corpuscular Volume 119.1 fL Mean Corpuscular Hemoglobin 35.8 pg Mean Corpuscular Hemoglobin Concent 30.0 g/dl RDW Standard Deviation 117.7 fL RDW Coefficient of Variation 28.3 % Platelet Count 134 K/uL Mean Platelet Volume 12.2 fL Sodium Level 149 mmol/L Potassium Level 5.0 mmol/L Chloride Level 117 mmol/L Carbon Dioxide Level 26 mmol/L Anion Gap 6.0 mmol/L Blood Urea Nitrogen 55 mg/dl Creatinine 0.66 mg/dl Est Creatinine Clear Calc Drug Dose 122.1 ml/min Estimated GFR () 117.7 Estimated GFR (Non- 101.6 BUN/Creatinine Ratio 84.3 Random Glucose 123 mg/dl Calcium Level 8.5 mg/dl Magnesium Level 1.8 mg/dl Assessment and Plan This patient is a 52 year old female with alcoholic liver cirrhosis, h/o C. Diff (September 2016), Asthma, HTN, Anxiety, Alcohol Abuse, Tobacco Abuse, Non- Bleeding Gastric Ulcer, Macrocytic Anemia, Severe Fatty Liver Disease, and S/P Cholecystectomy who presented w/ c/o abdominal pain, and with acute kidney injury, bloody diarrhea, hypertension and C. difficile colitis. She was also found to have acute alcoholic hepatitis. During her hospital stay, she had acute respiratory failure secondary to sepsis from pneumonia and C. difficile colitis and was intubated for the last week- prolonged due to ARDS. Extubated on 07/11. Had massive anasarca after ICU stay. 1. recent septic shock 2nd to pneumonia and c. diff colitis - former resolved and stools much improved. Currently on prolonged vanco taper. IV flagyl since dc'd at recommendation of Dr. Wu. 2. pneumonia, possibly due to marisol albicans or gram negative etiology - completed copious amounts of IV antibiotics for gram neg etiology; now remains on caspofungin, day # 10/10, for marisol. d/c fungal coverage today. 3. altered mental status/encephalopathy - improved, but still with slow speech and difficulty answering questions at times although much imporved from when I last saw her 5 days ago. 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 Cont thiamine 200mg BID, MVI, and folic acid. TSH wnl. Ammonia wnl. Her prognosis for the MBD is poor - severe cases can sometimes lead to a permanent dementia type state with cognitive impairment. I explained this to the family. With profound macrocytic anemia--> and also Neuro recommended checking B vitamin levels--> check B12, folate levels in AM, already on thiamine and folate daily, replace B12 if needed 4. severe c. diff colitis - recurrent - on slow vancomycin wean over 4 weeks minimum. 5. acute hypoxic respiratory failure 2nd to pneumonia/ARDS - resolving, was on vent and successfully extubated; remains on NC O2 likely due to residual ARDS and pulmonary edema. Likely has pleural effusions as well. Due to rising hypernatremia in the face of elevated BUN -placed diuresis on hold for now. 6. acute alcoholic hepatitis - LFTs continue to be slowly normalizing; GI following. 7. hypokalemia & hypomagnesemia - replete her low mag, follow levels 8. chronic macrocytic anemia - possibly due in part from chronic GI blood loss , EtOH use, and possible B12 or folate deficiency as above - Tx if Hb < 7. Iron studies satisfactory with Fe sat>20%. -checking B12, folate as above 9. thrombocytopenia - likely due to toxic effects from etoh and also from liver disease - daily CBC for stability. HIT ab negative. Platelets improved today to 134 10. significant prerenal azotemia/Hypernatremia/Anasarca -anasarca from volume overload and severe hypoalbuminemia from poor nutrition. Na+ elevated secondary to poor po intake, low free water intake, and previous diuresis-lasix on hold -encouraged free water today and she tells me she is thirsty for ice water -dc fluid restriction -she should begin autodiuresing as has normal renal function, once albumin levels rise -follow PRP 11. severe protein calorie malnutrition - continue tube feedings. But is starting to eat more today.Could consider appetite stimulant but poor candidate for marinol or megace. Could consider low-dose prednisone but will hold off on that. Her family feels she would NOT want PEG, and pt has declined this previously as well 12. h/o HTN - controlled off of anti-hypertensives. 13. coagulopathy - 2nd to #6 - resolved. 14. DVT proph - SCDs; chemical means contraindicated due to #9. 15. abdominal pain - lipase wnl but I question if she could have chronic pancreatitis?? Remains on PPI bid. Overall improved however. 16. profound deconditioning/weakness - likely critical illness myopathy. CPK wnl. -needs aggressive rehab 17. dysphagia - speech saw again -- pureed diet w/ thin liquids recommended; NO STRAWS; aspiration precautions DNR PT, OT, speech following poor prognosis even if she recovers, but is making some very slow recovery Discussed her care with her mother today on phone Awaiting Palliative Care consultation tomorrow
[2017-07-19] MEDS: RASPBERRY SYRUP 5 ML UDP PO SCH ×4 (04:39→21:17)
[2017-07-19] MEDS: VANCOMYCIN HCL 500 MG/10ML SOLN PO SCH ×4 (04:39→21:16)
[2017-07-19 05:58] LABS: BASO % 0.7 %; BASO ABS # 0.04 K/uL (0-0.2); EOS % 3.4 %; EOS ABS # 0.19 K/uL (0-0.5); HEMATOCRIT 25.6 % (37-47); HEMOGLOBIN 7.7 g/dL (12.0-16.0); IG# 0.05 K/uL (0.00-0.02); LYMPH % 14.7 %; LYMPH ABS # 0.83 K/uL (1.2-3.4); MEAN CELL VOLUME 120.8 fL (80-100); MEAN CORPUSCULAR HEMOGLOBIN 36.3 pg (25-34); MEAN CORPUSCULAR HGB CONC 30.1 g/dl (32-36); MEAN PLATELET VOLUME 11.9 fL (7.4-10.4); MONO % 6.4 %; MONO ABS # 0.36 K/uL (0.11-0.59); NEUT % 73.9 %; NEUT ABS # 4.19 K/uL (1.4-6.5); NUCLEATED RED BLOOD CELL ABS 0.02 K/uL (0-0); PLATELET COUNT 142 K/uL (130-400); RED CELL DISTRIBUTION WIDTH CV 27.2 % (11.5-14.5); RED CELL DISTRIBUTION WIDTH SD 115.3 fL (36.4-46.3); WHITE BLOOD COUNT 5.66 K/uL (4.8-10.8)
[2017-07-19 06:32] LABS: ALBUMIN 1.8 gm/dl (3.4-5.0); CALCIUM 8.3 mg/dl (8.5-10.1); CREATININE 0.53 mg/dl (0.60-1.20); POTASSIUM 5.5 mmol/L (3.5-5.1)
[2017-07-19 06:35] LABS: TOTAL PROTEIN 5.8 gm/dl (6.4-8.2)
[2017-07-19] MEDS: ALBUT/IPRATROP 3MG/0.5MG NEB 3 ML VIAL INH SCH ×4 (07:03→18:55)
[2017-07-19] MEDS: [UNRECOGNIZED DRUG - REMARK] SCH (07:10)
[2017-07-19] MEDS: POTASSIUM CHLORIDE 20 MEQ/15 ML UDC PO SCH (07:49)
[2017-07-19] MEDS: FoLIC ACID INJ 1 MG in SYRINGE 9.8 ML IV SCH (08:37)
[2017-07-19] MEDS: LANSOPRAZOLE SOLUTAB 15 MG PO SCH ×2 (08:38→21:18)
[2017-07-19] MEDS: THIAMINE HCL 100 MG TAB PO SCH ×2 (08:38→21:18)
[2017-07-19] MEDS ORDERED: MAGNESIUM SULFATE 1GM / D5W 1 GM in PREMIXED IN D5W 100 ML IV ONE (09:45)
[2017-07-19] MEDS: CEROVITE ADV FORMULA TAB PO SCH (10:21)
--- NOTE | 2017-07-19 11:53 | Hospitalist Progress Note ---
Hospitalist Progress Note Date of Service Jul 19, 2017. Subjective Pt evaluation today including: conversation w/ patient Patient says she is very tired today, is mostly sleeping while getting nebulizer treatment. RN reports that she was bathed today and turned around and this made her tired. She is tolerating her tube feeds. All Other Systems: Reviewed and Negative Objective Vital Signs Date Time Temp Pulse Resp B/P (MAP) Pulse Ox O2 Delivery O2 Flow Rate FiO2 07/19/17 11:15 85 18 95 Nasal Cannula 2.0 07/19/17 10:54 Nasal Cannula 2.0 07/19/17 07:38 36.3 83 22 108/78 (88) 100 Nasal Cannula 2.0 07/19/17 07:03 84 20 100 Nasal Cannula 2.0 07/19/17 00:01 Nasal Cannula 2.0 07/18/17 23:23 36.5 95 18 121/87 (98) 97 Room Air 07/18/17 22:02 92 20 94 Nasal Cannula 2.0 07/18/17 16:19 36.5 92 24 116/82 (93) 90 Nasal Cannula 2.0 07/18/17 15:11 95 20 90 Nasal Cannula 2.0 07/18/17 12:45 Nasal Cannula 2.0 Physical Exam General Appearance: no apparent distress (Appears ill and lethargic) Eyes: + abnormal sclerae exam (Icterus) ENT: hearing grossly normal Neck: trachea midline Respiratory/Chest: no respiratory distress, no accessory muscle use, + decreased breath sounds (At the bases bilaterally, some coarse upper airway sounds that clear after I asked her to cough) Cardiovascular: regular rate, rhythm, no murmur, + pertinent finding (2-3 + pitting edema in the lower extremities to the thighs, 1+ pitting edema in the hands today) Abdomen: normal bowel sounds, non tender, soft, + hepatomegaly Extremities: no calf tenderness, + swelling (As above) Neurologic/Psychiatric: + pertinent finding (Lethargic today, does open eyes and says she is tired, then goes back to sleep) Skin: no rash, + jaundice (Mild) Laboratory Results Last 24 Hours Test 07/19/17 05:05 White Blood Count 5.66 K/uL Red Blood Count 2.12 M/uL Hemoglobin 7.7 g/dL Hematocrit 25.6 % Mean Corpuscular Volume 120.8 fL Mean Corpuscular Hemoglobin 36.3 pg Mean Corpuscular Hemoglobin Concent 30.1 g/dl Platelet Count 142 K/uL Mean Platelet Volume 11.9 fL Neutrophils (%) (Auto) 73.9 % Lymphocytes (%) (Auto) 14.7 % Monocytes (%) (Auto) 6.4 % Eosinophils (%) (Auto) 3.4 % Basophils (%) (Auto) 0.7 % Neutrophils # (Auto) 4.19 K/uL Lymphocytes # (Auto) 0.83 K/uL Monocytes # (Auto) 0.36 K/uL Eosinophils # (Auto) 0.19 K/uL Basophils # (Auto) 0.04 K/uL RDW Standard Deviation 115.3 fL RDW Coefficient of Variation 27.2 % Immature Granulocyte % (Auto) 0.9 % Immature Granulocyte # (Auto) 0.05 K/uL Nucleated RBC Absolute Count (auto) 0.02 K/uL Nucleated Red Blood Cells % 0.3 % Large Platelets 1+ Hypochromasia PRESENT Anisocytosis PRESENT Macrocytosis PRESENT Target Cells 1+ Sodium Level 148 mmol/L Potassium Level 5.5 mmol/L Chloride Level 118 mmol/L Carbon Dioxide Level 26 mmol/L Anion Gap 4.0 mmol/L Blood Urea Nitrogen 47 mg/dl Creatinine 0.53 mg/dl Est Creatinine Clear Calc Drug Dose 152.1 ml/min Estimated GFR () 126.5 Estimated GFR (Non- 109.2 BUN/Creatinine Ratio 88.9 Random Glucose 117 mg/dl Calcium Level 8.3 mg/dl Magnesium Level 1.7 mg/dl Total Bilirubin 1.8 mg/dl Direct Bilirubin 1.4 mg/dl Aspartate Amino Transf (AST/SGOT) 59 U/L Alanine Aminotransferase (ALT/SGPT) 53 U/L Alkaline Phosphatase 320 U/L Total Protein 5.8 gm/dl Albumin 1.8 gm/dl Vitamin B12 Level 1191 pg/mL Folate 16.14 ng/mL Assessment and Plan This patient is a 52 year old female with alcoholic liver cirrhosis, h/o C. Diff (September 2016), Asthma, HTN, Anxiety, Alcohol Abuse, Tobacco Abuse, Non- Bleeding Gastric Ulcer, Macrocytic Anemia, Severe Fatty Liver Disease, and S/P Cholecystectomy who presented w/ c/o abdominal pain, and with acute kidney injury, bloody diarrhea, hypertension and C. difficile colitis. She was also found to have acute alcoholic hepatitis. During her hospital stay, she had acute respiratory failure secondary to sepsis from pneumonia and C. difficile colitis and was intubated for the last week- prolonged due to ARDS. Extubated on 07/11. Had massive anasarca after ICU stay. 1. recent septic shock 2nd to pneumonia and c. diff colitis - former resolved and stools much improved. Currently on prolonged vanco taper. IV flagyl since dc'd at recommendation of Dr. Wu. 2. pneumonia, possibly due to marisol albicans or gram negative etiology - completed copious amounts of IV antibiotics for gram neg etiology; now has completed a 10 day course of caspofungin 3. altered mental status/encephalopathy - improved, but still with slow speech and difficulty answering questions at times, encephalopathy waxes and wanes, although improved overall from. 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 Cont thiamine 200mg BID, MVI, and folic acid. TSH wnl. Ammonia wnl. Her prognosis for the MBD is poor - severe cases can sometimes lead to a permanent dementia type state with cognitive impairment. I explained this to the family. With profound macrocytic anemia--> and also Neuro recommended checking B vitamin levels--> B12, folate levels normal, already on thiamine and folate daily 4. severe c. diff colitis - recurrent - on slow vancomycin wean over 4 weeks minimum.-resolved, now with some loose stools likely secondary to tube feeds 5. acute hypoxic respiratory failure 2nd to pneumonia/ARDS - resolving, was on vent and successfully extubated; remains on NC O2 likely due to residual ARDS and pulmonary edema. Likely has pleural effusions as well. Due to rising hypernatremia in the face of elevated BUN -placed diuresis on hold for now. 6. acute alcoholic hepatitis - LFTs continue to be slowly normalizing; GI following. 7. hypokalemia & hypomagnesemia - replete her low mag, follow levels Now with hyperkalemia-discontinue oral potassium today -Repeat PRP at noon 8. chronic macrocytic anemia - possibly due in part from chronic GI blood loss , EtOH use. B12 and folate are normal. Iron studies satisfactory with Fe sat> 20%. -Hemoglobin stable today at 7.7 -Follow CBC -Transfuse if hemoglobin less than 7 9. thrombocytopenia - likely due to toxic effects from etoh and also from liver disease - HIT ab negative. Platelets continue to be improved today at 142 -Follow CBC 10. significant prerenal azotemia/Hypernatremia/Anasarca -anasarca from volume overload and severe hypoalbuminemia from poor nutrition. Na+ elevated secondary to poor po intake, low free water intake, and previous diuresis-lasix on hold Sodium slightly improved down to 148 today Still +32 L overall stay -encouraged free water intake p.o. and getting tube feeds -dc'd fluid restriction -she should begin autodiuresing as has normal renal function, once albumin levels rise with improved nutrition -follow PRP, LFTs, albumin 11. severe protein calorie malnutrition - continue tube feedings. But is starting to eat more somewhat on her own.Could consider appetite stimulant but poor candidate for marinol or megace. Could consider low-dose prednisone but will hold off on that. Her family feels she would NOT want PEG, and pt has declined this previously as well -Palliative care consultation pending for further discussion to assist with this decision 12. h/o HTN - controlled off of anti-hypertensives. 13. coagulopathy - 2nd to #6 - resolved. 14. DVT proph - SCDs; chemical means contraindicated due to #9. 15. abdominal pain - lipase wnl but I question if she could have chronic pancreatitis?? Remains on PPI bid. Overall improved however. 16. profound deconditioning/weakness - likely critical illness myopathy. CPK wnl. -needs aggressive rehab 17. dysphagia - speech saw again -- pureed diet w/ thin liquids recommended; NO STRAWS; aspiration precautions DNR PT, OT, speech following poor prognosis even if she recovers, but is making some very slow recovery Awaiting Palliative Care consultation today
[2017-07-19 12:54] LABS: CALCIUM 8.5 mg/dl (8.5-10.1); CREATININE 0.53 mg/dl (0.60-1.20); POTASSIUM 5.6 mmol/L (3.5-5.1)
[2017-07-19] MEDS ORDERED: SODIUM POLYST. SULF SUSP 15G/60ML NG STA (13:04)
--- NOTE | 2017-07-19 15:52 | GASTROENTEROLOGY PROGRESS NOTE ---
DATE: 07/19/2017 GASTROENTEROLOGY INPATIENT PROGRESS NOTE SUBJECTIVE: The chart reviewed, patient examined. The patient is more alert today and can recall location, but does not respond to year or month. She reports that she has slight abdominal pain. OBJECTIVE: LABORATORY STUDIES: Today, white count 5.6, hemoglobin 7.7, platelets 142,000. Serum chemistry: Potassium is elevated at 5.6, BUN and creatinine 44 and 0.5. B12 and folate were normal. LFTs showed total bilirubin of 1.8, direct 1.4; AST 59, ALT 53, alkaline phosphatase 320, this is a slight increase from the , although bilirubin is declining. Ferritin was elevated on July 16; however, this may represent an acute phase reactant. MEDICATIONS: Include Desenex powder, thiamin, enteral formula at 600 mL over 12 hours overnight, residuals were reported as 5 mL. Folic acid 1 mg daily, vancomycin 500 mg oral every 6 hours for C. diff, DuoNebs, Zofran p.r.n. She is on p.r.n. heparin flush. REVIEW OF SYSTEMS: Unobtainable. PHYSICAL EXAMINATION: VITAL SIGNS: Her vital signs have been stable and currently blood pressure 108/78, 2 liters nasal cannula with 95% sat, 85 heart rate, respirations 18. GENERAL: The patient is awake and alert. HEART: Normal S1, S2. LUNGS: Clear to auscultation overall. ABDOMEN: Soft, mildly tender in the epigastrium without rebound or guarding. Positive bowel sounds. EXTREMITIES: With +2 to 3 pitting edema bilaterally. RECTAL: Deferred. ASSESSMENT AND PLAN: The patient with alcoholic cirrhosis with mental status changes that have been slow to respond back to baseline. Placement options are currently being pursued for custodial care. I did speak with Dr. Dale and at the present time it is believed by the family that the patient would have not prefer to have a feeding tube, although this possibly may be reconsidered by the family. It may be reasonable to change out the NG tube to cava feed tube for nasogastric feeds as it may be more comfortable. Also, increasing her feeding solution to optimize nutrition is reasonable. If the family desires a PEG tube placement, we would be happy to arrange this as soon as possible. At this point, will sign off for now. Please contact us if we can be of further assistance in her care. BERT
--- NOTE | 2017-07-19 16:20 | Palliative Care Progress Note ---
Palliative Care Progress Note Date of Service Jul 19, 2017. Subjective Pt evaluation today including: conversation w/ patient, conversation w/ family , physical exam, chart review, lab review, conversation w/ information resource consultant Pain: None PO Intake: Poor, getting NG tube feeds at night Voiding: gil catheter in place Patient is awake, somewhat alert, able to answer a few simple questions, however when asked more complex questions patient would just stare straight ahead. Spoke with patient's mother on the phone, patient in the past has said she would not want a feeding tube she made statements to staff as well as her daughter, when her mother asked her the same question patient just stared straight ahead. Family aware patient is quite ill and would very likely not be able to return to her prior level of function. 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 The patient lived in an apartment that was owned by her employer. Patient's mother reported that she would not be able to help care for the patient as she cares for her 90+-year-old parents. Spoke with patient regarding the G-tube, she would just stare straight ahead not answer yes or no. Also discussed whether or not she would be willing to participate in rehab in order to gain strength, patient again just stared straight ahead. Will come to see patient again tomorrow to see if she is more alert and with it. Staff reports there is 1 patient is more talkative and appears more oriented. Review of Systems Unable to obtain, patient did not answer questions. Only nodded yes when she was asked if she was warm enough. Objective Vital Signs Date Time Temp Pulse Resp B/P (MAP) Pulse Ox O2 Delivery O2 Flow Rate FiO2 07/19/17 15:47 36.5 82 20 114/81 (92) 94 Nasal Cannula 2.0 07/19/17 15:13 88 18 95 Nasal Cannula 2.0 07/19/17 11:15 85 18 95 Nasal Cannula 2.0 07/19/17 10:54 Nasal Cannula 2.0 07/19/17 07:38 36.3 83 22 108/78 (88) 100 Nasal Cannula 2.0 07/19/17 07:03 84 20 100 Nasal Cannula 2.0 07/19/17 00:01 Nasal Cannula 2.0 07/18/17 23:23 36.5 95 18 121/87 (98) 97 Room Air 07/18/17 22:02 92 20 94 Nasal Cannula 2.0 07/18/17 16:19 36.5 92 24 116/82 (93) 90 Nasal Cannula 2.0 Physical Exam General Appearance: no apparent distress Eyes: EOMI, + pertinent finding (Sclera anicteric) ENT: hearing grossly normal Neck: supple Respiratory/Chest: no respiratory distress, + decreased breath sounds Cardiovascular: regular rate, rhythm Abdomen: non tender, + pertinent finding (Distended) Extremities: + pertinent finding (4+ lower extremity edema, weeping edema left upper extremity) Neurologic/Psychiatric: + pertinent finding (Patient is awake, not interactive) Skin: + pertinent finding (Pale, cool) Laboratory Results Last 24 Hours Test 07/19/17 05:05 07/19/17 12:08 White Blood Count 5.66 K/uL Red Blood Count 2.12 M/uL Hemoglobin 7.7 g/dL Hematocrit 25.6 % Mean Corpuscular Volume 120.8 fL Mean Corpuscular Hemoglobin 36.3 pg Mean Corpuscular Hemoglobin Concent 30.1 g/dl Platelet Count 142 K/uL Mean Platelet Volume 11.9 fL Neutrophils (%) (Auto) 73.9 % Lymphocytes (%) (Auto) 14.7 % Monocytes (%) (Auto) 6.4 % Eosinophils (%) (Auto) 3.4 % Basophils (%) (Auto) 0.7 % Neutrophils # (Auto) 4.19 K/uL Lymphocytes # (Auto) 0.83 K/uL Monocytes # (Auto) 0.36 K/uL Eosinophils # (Auto) 0.19 K/uL Basophils # (Auto) 0.04 K/uL RDW Standard Deviation 115.3 fL RDW Coefficient of Variation 27.2 % Immature Granulocyte % (Auto) 0.9 % Immature Granulocyte # (Auto) 0.05 K/uL Nucleated RBC Absolute Count (auto) 0.02 K/uL Nucleated Red Blood Cells % 0.3 % Large Platelets 1+ Hypochromasia PRESENT Anisocytosis PRESENT Macrocytosis PRESENT Target Cells 1+ Sodium Level 148 mmol/L 147 mmol/L Potassium Level 5.5 mmol/L 5.6 mmol/L Chloride Level 118 mmol/L 118 mmol/L Carbon Dioxide Level 26 mmol/L 27 mmol/L Anion Gap 4.0 mmol/L 2.0 mmol/L Blood Urea Nitrogen 47 mg/dl 44 mg/dl Creatinine 0.53 mg/dl 0.53 mg/dl Est Creatinine Clear Calc Drug Dose 152.1 ml/min 152.1 ml/min Estimated GFR () 126.5 126.5 Estimated GFR (Non- 109.2 109.2 BUN/Creatinine Ratio 88.9 82.2 Random Glucose 117 mg/dl 122 mg/dl Calcium Level 8.3 mg/dl 8.5 mg/dl Magnesium Level 1.7 mg/dl Total Bilirubin 1.8 mg/dl Direct Bilirubin 1.4 mg/dl Aspartate Amino Transf (AST/SGOT) 59 U/L Alanine Aminotransferase (ALT/SGPT) 53 U/L Alkaline Phosphatase 320 U/L Total Protein 5.8 gm/dl Albumin 1.8 gm/dl Vitamin B12 Level 1191 pg/mL Folate 16.14 ng/mL Assessment and Plan (1) Palliative care encounter Assessment & Plan: We will continue to try to determine patient's wishes regarding a feeding tube, patient has stated prior that she did not want a feeding tube to both staff and family. Family willing to support her decision. Patient will likely need placement, initially for skilled services, may need long-term care (2) Altered mental status, unspecified Status: Acute Assessment & Plan: Mental status waxes and wanes. Will attempt to discuss feeding tube with patient when she is more oriented (3) Edema Status: Acute Assessment & Plan: Patient diuresing slowly, still with significant edema (4) Severe alcohol use disorder Status: Chronic Assessment & Plan: Patient with multiple sequela from alcohol abuse Palliative Performance Scale: 30 % Continued [facility] stay due to: inadequate po fluid intake, voiding difficulties, ambulation difficulties, multiple IV medications needed, home environment unsafe for pt Discharge planning: long term facility Counseling and Coordination Total time 40 minutes with greater than 50% of the time spent visiting with patient and speaking with patient's mother on the phone.
[2017-07-19] MEDS: PEPTAMEN 1.5 CAL 1000ML BAG NG SCH (19:27)
[2017-07-20] VITALS (9 sets, daily range): BP systolic 116–124; BP diastolic 81–85; PULSE 73–88; TEMP 36.2–36.5; O2SAT 95–100
[2017-07-20] MEDS: RASPBERRY SYRUP 5 ML UDP PO SCH ×4 (04:00→21:45)
[2017-07-20] MEDS: VANCOMYCIN HCL 500 MG/10ML SOLN PO SCH ×4 (04:00→21:45)
[2017-07-20 05:34] LABS: HEMATOCRIT 24.9 % (37-47); HEMOGLOBIN 7.3 g/dL (12.0-16.0); MEAN CELL VOLUME 121.5 fL (80-100); MEAN CORPUSCULAR HEMOGLOBIN 35.6 pg (25-34); MEAN CORPUSCULAR HGB CONC 29.3 g/dl (32-36); MEAN PLATELET VOLUME 11.2 fL (7.4-10.4); PLATELET COUNT 132 K/uL (130-400); RED CELL DISTRIBUTION WIDTH SD 112.2 fL (36.4-46.3); WHITE BLOOD COUNT 4.84 K/uL (4.8-10.8)
[2017-07-20] MEDS: ALBUT/IPRATROP 3MG/0.5MG NEB 3 ML VIAL INH SCH ×5 (05:39→18:20)
[2017-07-20 05:47] LABS: ALBUMIN 1.7 gm/dl (3.4-5.0); CALCIUM 8.4 mg/dl (8.5-10.1); CREATININE 0.45 mg/dl (0.60-1.20); POTASSIUM 5.1 mmol/L (3.5-5.1)
[2017-07-20 05:50] LABS: PHOSPHORUS 4.4 mg/dl (2.5-4.9); TOTAL PROTEIN 5.8 gm/dl (6.4-8.2)
[2017-07-20 06:19] LABS: BASO % 0.6 %; BASO ABS # 0.03 K/uL (0-0.2); EOS % 4.1 %; IG# 0.04 K/uL (0.00-0.02); LYMPH % 17.6 %; LYMPH ABS # 0.85 K/uL (1.2-3.4); MONO ABS # 0.34 K/uL (0.11-0.59); NEUT % 69.9 %; NEUT ABS # 3.38 K/uL (1.4-6.5)
[2017-07-20] MEDS: [UNRECOGNIZED DRUG - REMARK] SCH (07:14)
[2017-07-20] MEDS: LANSOPRAZOLE SOLUTAB 15 MG PO SCH ×2 (08:18→21:25)
[2017-07-20] MEDS: THIAMINE HCL 100 MG TAB PO SCH ×2 (08:18→21:24)
[2017-07-20] MEDS: CEROVITE ADV FORMULA TAB PO SCH (08:18)
[2017-07-20] MEDS: FoLIC ACID INJ 1 MG in SYRINGE 9.8 ML IV SCH (08:18)
--- NOTE | 2017-07-20 17:34 | DIAGNOSTIC IMAGING REPORT ---
KUB CLINICAL HISTORY: Enteric tube placement. FINDINGS: An AP, portable, supine radiograph of the upper abdomen is compared to study dated 07/11/2017 and correlated with abdominal CT dated 07/06/2017. An enteric tube projects below the diaphragm over the mid stomach. Cholecystectomy clips are identified in the right upper quadrant. The liver is enlarged. There is no evidence of bowel obstruction. No abnormal abdominal calcifications are identified. Pleural effusions are suggested and calcified granulomas are present at the right lung base. IMPRESSION: 1. An enteric tube projects below the diaphragm over the mid stomach. 2. Pleural effusions. 3. There is no radiographic evidence of bowel obstruction. Electronically signed by: Reg Ly M.D. 07/20/2017 5:33 PM Dictated Date/Time: 07/20/2017 5:31 PM
[2017-07-20] MEDS: PEPTAMEN 1.5 CAL 1000ML BAG NG SCH (18:50)
--- NOTE | 2017-07-20 18:54 | Palliative Care Progress Note ---
Palliative Care Progress Note Date of Service Jul 20, 2017. Subjective Pt evaluation today including: conversation w/ patient, conversation w/ family , physical exam, chart review, lab review, conversation w/ transportation sales consultant Pain: None PO Intake: Poor, receives NG feeds at night Voiding: gil catheter in place Met with patient and her mother in the room. Patient stated she did not want a G-tube placed. Patient had made similar statements prior to her daughter. Discussed with the patient's mother that if she pulls out her NG tube we would likely not replace it and she is fine with that. Plan is to have patient evaluated on Sunday with PT and OT and see if she would qualify for rehab for strengthening. Mother is aware that if patient does not qualify for rehab she will need long-term care placement as she cannot care for herself and there are no family members or friends that are able to care for her. Patient has a history of avoiding decision-making, patient blames her mother for the condition that she is in. Provided support to the mother as well as educated her about avoiding further emotional abuse. Review of Systems Constitutional: No fever Eyes: + problem reported (Slightly icteric), No worsening of vision ENT: No hearing loss Respiratory: + problem reported (Weak cough, unable to handle oral secretions) Cardiac: No chest pain Abdomen: No pain Musculoskeletal: + swelling Female : + problem reported (Has Gil) Neurologic: + memory loss, + weakness Psychiatric: + substance abuse (Alcohol) Heme: No abnormal bleeding/bruising Endo: + fatigue Skin: No rash Objective Vital Signs Date Time Temp Pulse Resp B/P (MAP) Pulse Ox O2 Delivery O2 Flow Rate FiO2 07/20/17 18:20 86 18 96 Nasal Cannula 2.0 07/20/17 15:37 81 18 100 Nasal Cannula 2.0 07/20/17 15:21 36.5 80 22 116/81 (93) 100 Nasal Cannula 2.0 07/20/17 15:20 Nasal Cannula 2.0 07/20/17 11:22 73 18 100 Nasal Cannula 2.0 07/20/17 08:00 Nasal Cannula 2.0 07/20/17 07:30 36.2 79 18 124/85 (98) 96 07/20/17 06:55 79 18 100 Nasal Cannula 2.0 07/20/17 05:39 80 18 98 Nasal Cannula 2.0 07/20/17 00:10 Nasal Cannula 2.0 07/19/17 23:42 35.7 89 20 124/85 (98) 99 Nasal Cannula 2.0 07/19/17 18:55 92 18 93 Nasal Cannula 2.0 Physical Exam General Appearance: no apparent distress Eyes: EOMI ENT: hearing grossly normal, + pertinent finding (NG tube in place) Neck: supple Respiratory/Chest: no respiratory distress, + decreased breath sounds, + pertinent finding (Excess oral secretions) Cardiovascular: regular rate, rhythm Abdomen: non tender, soft Extremities: + swelling (Continued swelling of lower extremities, decreased swelling of upper extremities.) Neurologic/Psychiatric: + motor weakness, + pertinent finding (Will answers questions when she wants to, patient will turn her head and avoid further conversation at will) Skin: no rash, + pallor Laboratory Results Last 24 Hours Test 07/20/17 05:04 White Blood Count 4.84 K/uL Red Blood Count 2.05 M/uL Hemoglobin 7.3 g/dL Hematocrit 24.9 % Mean Corpuscular Volume 121.5 fL Mean Corpuscular Hemoglobin 35.6 pg Mean Corpuscular Hemoglobin Concent 29.3 g/dl Platelet Count 132 K/uL Mean Platelet Volume 11.2 fL Neutrophils (%) (Auto) 69.9 % Lymphocytes (%) (Auto) 17.6 % Monocytes (%) (Auto) 7.0 % Eosinophils (%) (Auto) 4.1 % Basophils (%) (Auto) 0.6 % Neutrophils # (Auto) 3.38 K/uL Lymphocytes # (Auto) 0.85 K/uL Monocytes # (Auto) 0.34 K/uL Eosinophils # (Auto) 0.20 K/uL Basophils # (Auto) 0.03 K/uL RDW Standard Deviation 112.2 fL RDW Coefficient of Variation 26.0 % Immature Granulocyte % (Auto) 0.8 % Immature Granulocyte # (Auto) 0.04 K/uL Large Platelets 1+ Hypochromasia PRESENT Basophilic Stippling 1+ Anisocytosis PRESENT Macrocytosis PRESENT Sodium Level 145 mmol/L Potassium Level 5.1 mmol/L Chloride Level 116 mmol/L Carbon Dioxide Level 27 mmol/L Anion Gap 2.0 mmol/L Blood Urea Nitrogen 37 mg/dl Creatinine 0.45 mg/dl Est Creatinine Clear Calc Drug Dose 179.1 ml/min Estimated GFR () 133.5 Estimated GFR (Non- 115.2 BUN/Creatinine Ratio 83.0 Random Glucose 128 mg/dl Calcium Level 8.4 mg/dl Phosphorus Level 4.4 mg/dl Magnesium Level 1.7 mg/dl Total Bilirubin 1.8 mg/dl Direct Bilirubin 1.2 mg/dl Aspartate Amino Transf (AST/SGOT) 55 U/L Alanine Aminotransferase (ALT/SGPT) 52 U/L Alkaline Phosphatase 307 U/L Total Protein 5.8 gm/dl Albumin 1.7 gm/dl Assessment and Plan (1) Palliative care encounter Assessment & Plan: Had a long discussion with patient and mother regarding treatment options as well as goals of care. Patient did not want PEG tube placed, patient amenable to continuing NG feeds. If patient pulls out her her NG tube it is okay not to replace it as per her mother. Patient will be evaluated for possible rehab-inform patient that she will need to be able to participate and cooperate. If patient does not qualify for rehab she will need long-term care placement, left message for case management. (2) Altered mental status, unspecified Status: Acute Assessment & Plan: Has improved, has significant cognitive deficits due to chronic alcohol use (3) Edema Status: Acute Assessment & Plan: Improved in the upper extremities, no change in her lower extremities (4) Severe alcohol use disorder Status: Chronic Assessment & Plan: Patient with long-term sequela from chronic alcohol abuse Palliative Performance Scale: 30 % Continued [facility] stay due to: inadequate po fluid intake, voiding difficulties, ambulation difficulties, home environment unsafe for pt Discharge planning: nursing home facility Counseling and Coordination Total time over 35 minutes with greater than 50% of the time spent at bedside discussing treatment options, plan of care and goals of care with patient and patient's mother.
--- NOTE | 2017-07-20 23:32 | Hospitalist Progress Note ---
Hospitalist Progress Note Date of Service Jul 20, 2017. Subjective Pt evaluation today including: conversation w/ patient, conversation w/ loan consultant (Palliative Care) Patient says she has some mild abdominal pain, otherwise will not answer any of my other questions. When I asked her about if she is okay with removing her NG tube and replacing it with a smaller, Coresafe feeding tube, she nods her head okay. After I walked out of the room, a friend of hers showed up to visit, and I witnessed her saying hello waving her hand and being more interactive. All Other Systems: Reviewed and Negative Objective Vital Signs Date Time Temp Pulse Resp B/P (MAP) Pulse Ox O2 Delivery O2 Flow Rate FiO2 07/20/17 20:30 88 16 95 Nasal Cannula 2.0 07/20/17 18:20 86 18 96 Nasal Cannula 2.0 07/20/17 15:37 81 18 100 Nasal Cannula 2.0 07/20/17 15:21 36.5 80 22 116/81 (93) 100 Nasal Cannula 2.0 07/20/17 15:20 Nasal Cannula 2.0 07/20/17 11:22 73 18 100 Nasal Cannula 2.0 07/20/17 08:00 Nasal Cannula 2.0 07/20/17 07:30 36.2 79 18 124/85 (98) 96 07/20/17 06:55 79 18 100 Nasal Cannula 2.0 07/20/17 05:39 80 18 98 Nasal Cannula 2.0 07/20/17 00:10 Nasal Cannula 2.0 07/19/17 23:42 35.7 89 20 124/85 (98) 99 Nasal Cannula 2.0 Physical Exam General Appearance: no apparent distress (Appears chronically ill) Eyes: + abnormal sclerae exam (Icterus) ENT: hearing grossly normal, pharynx normal, + pertinent finding (NG tube in place) Neck: trachea midline Respiratory/Chest: no respiratory distress, no accessory muscle use, + decreased breath sounds (At the bases, coarse upper airway breath sounds) Cardiovascular: regular rate, rhythm, no murmur, + pertinent finding (Massive anasarca in all extremities) Abdomen: normal bowel sounds, soft, + tenderness (Mild at the liver edge, no guarding or rebound tenderness), + hepatomegaly Extremities: + swelling (As above) Neurologic/Psychiatric: alert, + depressed affect, + pertinent finding (Today with 3+ strength in the upper and lower extremities but certainly weaker in the more proximal muscles at 2+) Skin: normal color, warm/dry, no rash Laboratory Results Last 24 Hours Test 07/20/17 05:04 White Blood Count 4.84 K/uL Red Blood Count 2.05 M/uL Hemoglobin 7.3 g/dL Hematocrit 24.9 % Mean Corpuscular Volume 121.5 fL Mean Corpuscular Hemoglobin 35.6 pg Mean Corpuscular Hemoglobin Concent 29.3 g/dl Platelet Count 132 K/uL Mean Platelet Volume 11.2 fL Neutrophils (%) (Auto) 69.9 % Lymphocytes (%) (Auto) 17.6 % Monocytes (%) (Auto) 7.0 % Eosinophils (%) (Auto) 4.1 % Basophils (%) (Auto) 0.6 % Neutrophils # (Auto) 3.38 K/uL Lymphocytes # (Auto) 0.85 K/uL Monocytes # (Auto) 0.34 K/uL Eosinophils # (Auto) 0.20 K/uL Basophils # (Auto) 0.03 K/uL RDW Standard Deviation 112.2 fL RDW Coefficient of Variation 26.0 % Immature Granulocyte % (Auto) 0.8 % Immature Granulocyte # (Auto) 0.04 K/uL Large Platelets 1+ Hypochromasia PRESENT Basophilic Stippling 1+ Anisocytosis PRESENT Macrocytosis PRESENT Sodium Level 145 mmol/L Potassium Level 5.1 mmol/L Chloride Level 116 mmol/L Carbon Dioxide Level 27 mmol/L Anion Gap 2.0 mmol/L Blood Urea Nitrogen 37 mg/dl Creatinine 0.45 mg/dl Est Creatinine Clear Calc Drug Dose 179.1 ml/min Estimated GFR () 133.5 Estimated GFR (Non- 115.2 BUN/Creatinine Ratio 83.0 Random Glucose 128 mg/dl Calcium Level 8.4 mg/dl Phosphorus Level 4.4 mg/dl Magnesium Level 1.7 mg/dl Total Bilirubin 1.8 mg/dl Direct Bilirubin 1.2 mg/dl Aspartate Amino Transf (AST/SGOT) 55 U/L Alanine Aminotransferase (ALT/SGPT) 52 U/L Alkaline Phosphatase 307 U/L Total Protein 5.8 gm/dl Albumin 1.7 gm/dl Assessment and Plan This patient is a 52 year old female with alcoholic liver cirrhosis, h/o C. Diff (September 2016), Asthma, HTN, Anxiety, Alcohol Abuse, Tobacco Abuse, Non- Bleeding Gastric Ulcer, Macrocytic Anemia, Severe Fatty Liver Disease, and S/P Cholecystectomy who presented w/ c/o abdominal pain, and with acute kidney injury, bloody diarrhea, hypertension and C. difficile colitis. She was also found to have acute alcoholic hepatitis. During her hospital stay, she had acute respiratory failure secondary to sepsis from pneumonia and C. difficile colitis and was intubated for 1 week-prolonged due to ARDS. Extubated on 07/11. Had massive anasarca after ICU stay. 1. recent septic shock 2nd to pneumonia and c. diff colitis - former resolved and stools much improved. Currently on prolonged vanco taper. IV flagyl since dc'd at recommendation of Dr. Wu. 2. pneumonia, possibly due to marisol albicans or gram negative etiology/ pleural effusions seen on KUB today completed copious amounts of IV antibiotics for gram neg etiology; now has completed a 10 day course of caspofungin -We will check chest x-ray tomorrow -Pleural effusions likely secondary to hypoalbuminemia and atelectasis from poor mobilization 3. altered mental status/encephalopathy - improved, but still with slow speech and difficulty answering questions at times, encephalopathy waxes and wanes, although improved overall from previous. 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 Cont thiamine 200mg BID, MVI, and folic acid-change folic acid to p.o. TSH wnl. Ammonia wnl. Her prognosis for the MBD is poor - severe cases can sometimes lead to a permanent dementia type state with cognitive impairment. With profound macrocytic anemia--> and also Neuro recommended checking B vitamin levels--> B12, folate levels normal, already on thiamine and folate daily 4. severe c. diff colitis - recurrent - on slow vancomycin wean over 4 weeks minimum.-resolved, now with some loose stools likely secondary to tube feeds 5. acute hypoxic respiratory failure 2nd to pneumonia/ARDS -stable, remains on 2 L, was on vent and successfully extubated; remains on O2 likely due to residual pulmonary edema, pleural effusions secondary to hypoalbuminemia as above -Wean oxygen as tolerated -Mobilization and will need improved albumin in order to diurese her fluid 6. acute alcoholic hepatitis - LFTs continue to be slowly normalizing; GI following. INR improved, albumin remains low 7. hypokalemia & hypomagnesemia - replete electrolytes as needed Then had hyperkalemia-discontinued oral potassium and improved today to 5.1 -Follow PRP 8. chronic macrocytic anemia - possibly due in part from chronic GI blood loss , EtOH use. B12 and folate are normal. Iron studies satisfactory with Fe sat> 20%. -Hemoglobin stable today at 7.3 -Follow CBC -Transfuse if hemoglobin less than 7 in order to avoid further volume overload 9. thrombocytopenia - likely due to toxic effects from etoh and also from liver disease - HIT ab negative. Platelets continue to be improved today at 132 -Follow CBC 10. significant prerenal azotemia/Hypernatremia/Anasarca -anasarca from volume overload and severe hypoalbuminemia from poor nutrition and poor synthetic liver function. Na+ elevated secondary to poor po intake, low free water intake, and previous diuresis-lasix on hold Sodium continues to improve and is down to 145 today Still +31 L overall hospital stay -encouraged free water intake p.o. and getting tube feeds -dc'd fluid restriction -she should begin autodiuresing as has normal renal function, once albumin levels rise with improved nutrition and with recovery of liver function -follow PRP, LFTs, albumin 11. severe protein calorie malnutrition -remains on tube feedings. But is able to eat somewhat on her own.Could consider appetite stimulant but poor candidate for marinol or megace. Palliative care had extensive discussion today with the patient and her family- they have decided that she will not have a PEG tube placed, and then if her NG tube is pulled out, falls out, or she chooses to have it out, it will not be replaced -Continue tube feeds for now but encourage further p.o. intake 12. h/o HTN - controlled off of home anti-hypertensives. 13. coagulopathy - 2nd to #6 - resolved. 14. DVT proph - SCDs; chemical means contraindicated due to #9. 15. abdominal pain - lipase wnl but I question if she could have chronic pancreatitis?? Remains on PPI bid. Overall improved however. 16. profound deconditioning/weakness - likely critical illness myopathy. CPK wnl. Strength minimally improved today -needs aggressive rehab-OT was not consulted -Consult OT, PT continues to follow -Needs SNF placement likely on Sunday. dysphagia - speech therapy has seen her-- pureed diet w/ thin liquids recommended; NO STRAWS; aspiration precautions DNR poor prognosis even if she recovers, but is making some very slow recovery Appreciate palliative Care consultation to help establish goals of care Disposition-hopefully to SNF placement early next week-perhaps [facility] as per her mother's first choice
[2017-07-21] VITALS (11 sets, daily range): BP systolic 107–116; BP diastolic 67–83; PULSE 76–89; TEMP 36–36.2; O2SAT 95–98
[2017-07-21] MEDS: RASPBERRY SYRUP 5 ML UDP PO SCH ×5 (03:51→22:35)
[2017-07-21] MEDS: VANCOMYCIN HCL 500 MG/10ML SOLN PO SCH ×4 (03:51→21:52)
[2017-07-21 05:44] LABS: HEMATOCRIT 25.5 % (37-47); HEMOGLOBIN 7.4 g/dL (12.0-16.0); MEAN CELL VOLUME 121.4 fL (80-100); MEAN CORPUSCULAR HEMOGLOBIN 35.2 pg (25-34); MEAN PLATELET VOLUME 11.1 fL (7.4-10.4); PLATELET COUNT 142 K/uL (130-400); RED CELL DISTRIBUTION WIDTH SD 109.3 fL (36.4-46.3); WHITE BLOOD COUNT 4.24 K/uL (4.8-10.8)
[2017-07-21] MEDS: ALBUT/IPRATROP 3MG/0.5MG NEB 3 ML VIAL INH SCH ×5 (06:00→18:40)
[2017-07-21 06:04] LABS: ALBUMIN 1.6 gm/dl (3.4-5.0); CALCIUM 8.2 mg/dl (8.5-10.1); CREATININE 0.46 mg/dl (0.60-1.20); POTASSIUM 4.8 mmol/L (3.5-5.1)
[2017-07-21 06:07] LABS: PHOSPHORUS 4.3 mg/dl (2.5-4.9); TOTAL PROTEIN 5.6 gm/dl (6.4-8.2)
[2017-07-21 06:34] LABS: BASO % 0.7 %; BASO ABS # 0.03 K/uL (0-0.2); EOS % 4.7 %; IG# 0.02 K/uL (0.00-0.02); LYMPH % 22.2 %; LYMPH ABS # 0.94 K/uL (1.2-3.4); MONO % 8.7 %; MONO ABS # 0.37 K/uL (0.11-0.59); NEUT % 63.2 %; NEUT ABS # 2.68 K/uL (1.4-6.5)
[2017-07-21] MEDS: [UNRECOGNIZED DRUG - REMARK] SCH (06:43)
--- NOTE | 2017-07-21 07:26 | DIAGNOSTIC IMAGING REPORT ---
SINGLE VIEW CHEST CLINICAL HISTORY: Follow-up pleural effusions. FINDINGS: An AP, portable, semierect chest radiograph is compared to study dated 07/09/2017. The examination is degraded by portable technique and apical lordotic positioning. A feeding tube has been exchanged. The tip projects below the diaphragm. A right PICC line is unchanged in position. The right internal jugular central venous catheter has been removed. The heart is enlarged and there is pulmonary vascular congestion. This has worsened from previous. Bilateral airspace opacities likely represent interstitial edema. There are moderate right and small left pleural effusions with bibasilar consolidation. No pneumothorax is seen. Scattered calcified granulomas are observed. The skeletal structures appear osteopenic. The bony thorax is grossly intact. IMPRESSION: 1. Cardiomegaly with worsening pulmonary vascular congestion as compared to 07/09/2017. 2. Bilateral airspace opacities likely represent a component of interstitial edema. Correlate clinically for evidence of superimposed pneumonia. 3. Right larger than left pleural effusions with associated atelectasis. These have significantly increased in size from previous. 4. Lines and tubes as above. Electronically signed by: Reg Ly M.D. 07/21/2017 7:25 AM Dictated Date/Time: 07/21/2017 7:22 AM
[2017-07-21] MEDS: CEROVITE ADV FORMULA TAB PO SCH (08:16)
[2017-07-21] MEDS: LANSOPRAZOLE SOLUTAB 15 MG PO SCH ×2 (08:16→20:39)
[2017-07-21] MEDS: THIAMINE HCL 100 MG TAB PO SCH ×2 (08:16→20:39)
[2017-07-21] MEDS ORDERED: ALBUMIN 25% 50 ML with FUROSEMIDE INJ 40 MG IV ONE ×2 (10:00)
--- NOTE | 2017-07-21 14:27 | Hospitalist Progress Note ---
Hospitalist Progress Note Date of Service Jul 21, 2017. Subjective Pt evaluation today including: conversation w/ patient Voiding: gil catheter in place Patient more interactive today. States that her abdominal pain is improved. She is eating a little bit of oatmeal and pudding today. Her swelling is down and she states that she took notice of this. The nurse tells me that the patient has been coughing when eating or drinking. All Other Systems: Reviewed and Negative Objective Vital Signs Date Time Temp Pulse Resp B/P (MAP) Pulse Ox O2 Delivery O2 Flow Rate FiO2 07/21/17 12:28 83 107/67 (80) 07/21/17 11:18 89 16 96 Nasal Cannula 2.0 07/21/17 11:10 36.2 80 20 113/78 (90) 96 Nasal Cannula 2.0 07/21/17 10:57 85 107/78 (88) 07/21/17 10:25 Nasal Cannula 2.0 07/21/17 07:54 36.2 82 24 116/83 (94) 96 Nasal Cannula 2.0 07/21/17 06:00 76 16 97 Nasal Cannula 2.0 07/21/17 00:00 Nasal Cannula 2.0 07/20/17 23:58 36.4 87 18 118/82 (94) 98 Nasal Cannula 2.0 07/20/17 20:30 88 16 95 Nasal Cannula 2.0 07/20/17 20:00 Nasal Cannula 2.0 07/20/17 18:20 86 18 96 Nasal Cannula 2.0 07/20/17 15:37 81 18 100 Nasal Cannula 2.0 07/20/17 15:21 36.5 80 22 116/81 (93) 100 Nasal Cannula 2.0 07/20/17 15:20 Nasal Cannula 2.0 Physical Exam General Appearance: no apparent distress (Appears ill but a little more alert and awake today) Eyes: normal inspection, sclerae normal ENT: hearing grossly normal, + pertinent finding (Feeding tube in place through the nose) Neck: trachea midline Respiratory/Chest: no respiratory distress, no accessory muscle use, + decreased breath sounds (At the lower and middle lung sandy bilaterally, some coarse upper airway sounds) Cardiovascular: regular rate, rhythm, + systolic murmur, + pertinent finding ( Massive anasarca, however upper extremity edema is much improved today) Abdomen: normal bowel sounds, non tender, soft, + hepatomegaly Extremities: no calf tenderness, + swelling (Anasarca as above) Neurologic/Psychiatric: + pertinent finding (Not able to left her legs, but is able to abduct upper extremities against some resistance, can dorsiflex and plantarflex the feet bilaterally, but cannot bend her knees due to weakness) Skin: normal color, warm/dry, no rash Laboratory Results Last 24 Hours Test 07/21/17 05:04 White Blood Count 4.24 K/uL Red Blood Count 2.10 M/uL Hemoglobin 7.4 g/dL Hematocrit 25.5 % Mean Corpuscular Volume 121.4 fL Mean Corpuscular Hemoglobin 35.2 pg Mean Corpuscular Hemoglobin Concent 29.0 g/dl Platelet Count 142 K/uL Mean Platelet Volume 11.1 fL Neutrophils (%) (Auto) 63.2 % Lymphocytes (%) (Auto) 22.2 % Monocytes (%) (Auto) 8.7 % Eosinophils (%) (Auto) 4.7 % Basophils (%) (Auto) 0.7 % Neutrophils # (Auto) 2.68 K/uL Lymphocytes # (Auto) 0.94 K/uL Monocytes # (Auto) 0.37 K/uL Eosinophils # (Auto) 0.20 K/uL Basophils # (Auto) 0.03 K/uL RDW Standard Deviation 109.3 fL RDW Coefficient of Variation 25.0 % Immature Granulocyte % (Auto) 0.5 % Immature Granulocyte # (Auto) 0.02 K/uL Large Platelets 1+ Polychromasia 1+ Hypochromasia PRESENT Anisocytosis PRESENT Macrocytosis PRESENT Stomatocytes 1+ Prothrombin Time 11.0 SECONDS Prothromb Time International Ratio 1.0 Sodium Level 148 mmol/L Potassium Level 4.8 mmol/L Chloride Level 116 mmol/L Carbon Dioxide Level 28 mmol/L Anion Gap 4.0 mmol/L Blood Urea Nitrogen 31 mg/dl Creatinine 0.46 mg/dl Est Creatinine Clear Calc Drug Dose 175.2 ml/min Estimated GFR () 132.6 Estimated GFR (Non- 114.4 BUN/Creatinine Ratio 67.8 Random Glucose 113 mg/dl Calcium Level 8.2 mg/dl Phosphorus Level 4.3 mg/dl Total Bilirubin 1.4 mg/dl Direct Bilirubin 1.1 mg/dl Aspartate Amino Transf (AST/SGOT) 61 U/L Alanine Aminotransferase (ALT/SGPT) 54 U/L Alkaline Phosphatase 303 U/L Total Protein 5.6 gm/dl Albumin 1.6 gm/dl Diagnostic Results Chest x-ray images personally reviewed by me and shows bilateral pleural effusions right greater than left, as well as significant pulmonary vascular congestion worse from previous Assessment and Plan This patient is a 52 year old female with alcoholic liver cirrhosis, h/o C. Diff (September 2016), Asthma, HTN, Anxiety, Alcohol Abuse, Tobacco Abuse, Non- Bleeding Gastric Ulcer, Macrocytic Anemia, Severe Fatty Liver Disease, and S/P Cholecystectomy who presented w/ c/o abdominal pain, and with acute kidney injury, bloody diarrhea, hypertension and C. difficile colitis. She was also found to have acute alcoholic hepatitis. During her hospital stay, she had acute respiratory failure secondary to sepsis from pneumonia and C. difficile colitis and was intubated for 1 week-prolonged due to ARDS. Extubated on 07/11. Had massive anasarca after ICU stay. 1. recent septic shock 2nd to pneumonia and c. diff colitis -septic shock resolved for quite some time now and stools much improved. IV flagyl from 06/27- and then was dc'd at recommendation of Dr. Wu. -Has been on p.o. vancomycin 4 times daily since 06/30-will start tapering down to 3 times daily today 1 week, then twice daily 1 week, then once daily for 1 week, then stop 2. pneumonia, possibly due to marisol albicans or gram negative etiology/ pleural effusions seen on KUB on 07/20 Completed copious amounts of IV antibiotics for gram neg etiology; now has completed a 10 day course of caspofungin -Chest x-ray 07/21 with enlarging right greater than left pleural effusions and pulmonary vascular congestion looks much worse than previous, however she remains on 2 L nasal cannula and has minimal respiratory symptoms -Pleural effusions likely secondary to hypoalbuminemia and atelectasis from poor mobilization -Albumin with Lasix 40 mg IV once daily to start today 3. altered mental status/encephalopathy - improved, but still with slow speech and difficulty answering questions at times, encephalopathy waxes and wanes, although improved overall from previous. 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 Cont thiamine 200mg BID, MVI, and folic acid TSH wnl. Ammonia wnl. Her prognosis for the MBD is poor - severe cases can sometimes lead to a permanent dementia type state with cognitive impairment. With profound macrocytic anemia--> B12, folate levels normal, already on thiamine and folate daily 4. severe c. diff colitis - recurrent - on slow vancomycin wean over 4 weeks minimum.-resolved, now with some loose stools likely secondary to tube feeds 5. acute hypoxic respiratory failure 2nd to pneumonia/ARDS -stable, remains on 2 L, was on vent and successfully extubated; remains on O2 likely due to residual pulmonary edema, pleural effusions secondary to hypoalbuminemia as above -Wean oxygen as tolerated -Mobilization and will need improved albumin in order to diurese her fluid -Albumin and Lasix as above 6. acute alcoholic hepatitis - LFTs continue to be slowly normalizing; GI following. INR improved, albumin remains low at 1.5 7. hypokalemia & hypomagnesemia - replete electrolytes as needed Then had hyperkalemia-discontinued oral potassium, gave 1 dose of Kayexalate, and now resolved -Follow PRP 8. chronic macrocytic anemia - possibly due in part from chronic GI blood loss , EtOH use. B12 and folate are normal. Iron studies satisfactory with Fe sat> 20%. -Hemoglobin stable today at 7.3 -Follow CBC -Transfuse if hemoglobin less than 7 in order to avoid further volume overload 9. thrombocytopenia - likely due to toxic effects from etoh and also from liver disease - HIT ab negative. Platelets continue to improve each day and are now normal -Follow CBC 10. significant prerenal azotemia/Hypernatremia/Anasarca -anasarca from volume overload and severe hypoalbuminemia from poor nutrition and poor synthetic liver function. Na+ elevated secondary to poor po intake, low free water intake, and previous diuresis-lasix was on hold 1 week Sodium was slightly improved, now up again, but will give albumin and Lasix as above as needs diuresis Now only +30 L per overall hospital stay which is improved -Continue tube feeds and nutrition will increase the amount of protein and amount today -dc'd fluid restriction -she should begin autodiuresing as has normal renal function, once albumin levels rise with improved nutrition and with recovery of liver function -follow PRP, LFTs, albumin 11. severe protein calorie malnutrition -remains on tube feedings. But is able to eat somewhat on her own.Could consider appetite stimulant but poor candidate for marinol or megace. Palliative care had extensive discussion with the patient and her family-they have decided that she will not have a PEG tube placed, and then if her NG tube is pulled out, falls out, or she chooses to have it out, it will not be replaced -Continue tube feeds for now but encourage further p.o. intake -We will eventually need feeding tube removed prior to discharge to the long term most likely 12. h/o HTN - controlled off of home anti-hypertensives. 13. coagulopathy - 2nd to #6 - resolved. 14. DVT proph - SCDs; chemical means contraindicated due to #9. 15. abdominal pain -now improved -Remains on PPI bid 16. profound deconditioning/weakness - likely critical illness myopathy. CPK wnl. Strength only with minimal improvement. Has not been out of bed much at all in a couple of weeks despite my encouragement with the patient and staff OT has still not seen the patient since consult placed yesterday, PT has not seen her in several days -needs aggressive rehab -Awaiting OT consult, PT reconsult -Needs SNF placement when medically stable 17. dysphagia -continues to cough at times with swallowing -Speech therapy has seen her-- pureed diet w/ thin liquids recommended; NO STRAWS; aspiration precautions DNR poor prognosis even if she recovers, but is making some very slow recovery Appreciate palliative Care consultation to help establish goals of care Disposition-hopefully to SNF placement early next week-perhaps [facility] as per her mother's first choice
[2017-07-21] MEDS: PEPTAMEN 1.5 CAL 1000ML BAG NG PRN (20:38)
[2017-07-22] VITALS (8 sets, daily range): BP systolic 108–159; BP diastolic 76–78; PULSE 71–130; TEMP 36.3–36.5; O2SAT 94–98
[2017-07-22] MEDS: ALBUT/IPRATROP 3MG/0.5MG NEB 3 ML VIAL INH SCH ×5 (04:42→18:52)
[2017-07-22 05:45] LABS: HEMATOCRIT 24.9 % (37-47); HEMOGLOBIN 7.4 g/dL (12.0-16.0); MEAN CELL VOLUME 121.5 fL (80-100); MEAN CORPUSCULAR HEMOGLOBIN 36.1 pg (25-34); MEAN CORPUSCULAR HGB CONC 29.7 g/dl (32-36); MEAN PLATELET VOLUME 10.9 fL (7.4-10.4); PLATELET COUNT 150 K/uL (130-400); RED CELL DISTRIBUTION WIDTH CV 24.2 % (11.5-14.5); RED CELL DISTRIBUTION WIDTH SD 106.8 fL (36.4-46.3); WHITE BLOOD COUNT 4.06 K/uL (4.8-10.8)
[2017-07-22 05:59] LABS: BASO % 0.7 %; BASO ABS # 0.03 K/uL (0-0.2); EOS % 4.2 %; EOS ABS # 0.17 K/uL (0-0.5); IG# 0.02 K/uL (0.00-0.02); LYMPH % 23.4 %; LYMPH ABS # 0.95 K/uL (1.2-3.4); MONO % 10.1 %; MONO ABS # 0.41 K/uL (0.11-0.59); NEUT % 61.1 %; NEUT ABS # 2.48 K/uL (1.4-6.5)
[2017-07-22 06:15] LABS: ALBUMIN 1.8 gm/dl (3.4-5.0); CALCIUM 8.1 mg/dl (8.5-10.1); CREATININE 0.41 mg/dl (0.60-1.20); POTASSIUM 4.8 mmol/L (3.5-5.1)
[2017-07-22 06:18] LABS: TOTAL PROTEIN 5.7 gm/dl (6.4-8.2)
[2017-07-22] MEDS: VANCOMYCIN HCL 500 MG/10ML SOLN PO SCH ×3 (06:22→22:07)
[2017-07-22] MEDS: RASPBERRY SYRUP 5 ML UDP PO SCH ×3 (06:22→22:07)
[2017-07-22] MEDS: LANSOPRAZOLE SOLUTAB 15 MG PO SCH ×2 (08:25→19:51)
[2017-07-22] MEDS: THIAMINE HCL 100 MG TAB PO SCH ×2 (08:25→19:51)
[2017-07-22] MEDS: CEROVITE ADV FORMULA TAB PO SCH (08:25)
[2017-07-22] MEDS: ALBUMIN 25% 50 ML with FUROSEMIDE INJ 40 MG IV SCH ×2 (08:25)
[2017-07-22] MEDS: [UNRECOGNIZED DRUG - REMARK] SCH (08:26)
[2017-07-22] MEDS ORDERED: NURSING VERBAL MED ORDER ONE (09:15)
[2017-07-22] MEDS ORDERED: MoRPHine SULFATE 5 MG/0.25 ML UDP SL PRN (09:30)
[2017-07-22] MEDS: TUBE FEEDING WATER FLUSH NG SCH ×5 (12:00→22:07)
--- NOTE | 2017-07-22 14:17 | Progress Note ---
Subjective Date of Service: Jul 22, 2017. Subjective Pt evaluation today including: conversation w/ patient, physical exam, chart review, lab review, review of studies, conversation w/ marketing operations consultant, review of inpatient medication list Mild abdominal pain generalized, 4-5 out of 10, is new, denied nausea vomiting denied diarrhea constipation, patient has bowel movement 1 today Problem List Medical Problems: (1) Abdominal pain Status: Acute (2) Acute pancreatitis Status: Acute (3) Alcohol abuse Status: Acute (4) Alcohol intoxication Status: Acute (5) Anemia Status: Acute (6) Anemia Status: Acute (7) Biliary obstruction Status: Acute (8) C. difficile colitis Status: Acute (9) C. difficile diarrhea Status: Acute (10) Chest pain Status: Acute (11) Contusion of multiple sites Status: Acute (12) Dehydration Status: Acute (13) Dehydration Status: Acute (14) Encounter for smoking cessation counseling Status: Acute (15) Epigastric abdominal pain Status: Acute (16) Fall Status: Acute (17) Fall due to slipping on ice or snow Status: Acute (18) Fracture of left distal radius Status: Acute (19) Hypocalcemia Status: Acute (20) Hypomagnesemia Status: Acute (21) Hypomagnesemia Status: Acute (22) Hypotension Status: Acute (23) Lactic acidosis Status: Acute (24) Liver failure Status: Acute (25) Pancreatitis Status: Acute Review of Systems Constitutional: + weakness, + fatigue, No fever, No chills Eyes: No worsening of vision ENT: No hearing loss, No unusual epistaxis Respiratory: No cough, No sputum, No wheezing Cardiac: + edema, No chest pain, No orthopnea Abdomen: + see HPI, + pain, No nausea, No vomiting, No diarrhea, No constipation, No GI bleeding, No problem reported Musculoskeletal: No see HPI, No joint pain, No muscle pain, No swelling, No calf pain, No problem reported Female : No see HPI, No dysuria, No urinary frequency, No hematuria, No incontinence, No abnormal vaginal bleeding, No vaginal discharge, No problem reported Neurologic: No see HPI, No memory loss, No paralysis, No weakness, No numbness/ tingling, No vertigo, No balance problems, No problem reported Psychiatric: + anxiety Objective Vital Signs Date Time Temp Pulse Resp B/P (MAP) Pulse Ox O2 Delivery O2 Flow Rate FiO2 07/22/17 11:17 89 16 97 Nasal Cannula 2.0 07/22/17 09:02 Nasal Cannula 2.0 07/22/17 07:50 36.3 87 20 108/78 (88) 95 Nasal Cannula 2.0 07/22/17 06:55 71 16 96 Nasal Cannula 2.0 07/22/17 04:42 78 16 95 Nasal Cannula 2.0 07/22/17 00:00 Nasal Cannula 2.0 07/22/17 00:00 36.5 130 20 159/77 (104) 97 Nasal Cannula 2.0 07/21/17 22:35 83 16 95 Nasal Cannula 2.0 07/21/17 20:00 Nasal Cannula 2.0 07/21/17 18:45 82 16 98 Nasal Cannula 2.0 07/21/17 17:02 82 16 96 Nasal Cannula 2.0 07/21/17 15:57 36.0 81 20 113/68 (83) 97 Nasal Cannula 2.0 07/21/17 15:17 89 16 96 Nasal Cannula 2.0 Physical Exam General Appearance: + obese, + pertinent finding (Chronic ill looking frail,) Eyes: normal inspection, PERRL ENT: normal ENT inspection, hearing grossly normal Neck: supple, no adenopathy Respiratory/Chest: chest non-tender, + decreased breath sounds, + rales, + wheezing Cardiovascular: regular rate, rhythm, no gallop, no JVD, no murmur, + systolic murmur Abdomen: normal bowel sounds, non tender, soft Extremities: normal range of motion, non-tender, + swelling (3+ edema) Neurologic/Psychiatric: saw tailer II-XII nml as tested, no motor/sensory deficits, alert, normal mood/affect, + pertinent finding (Mild lethargic,) Skin: normal color, warm/dry Laboratory Results Last 24 Hours Test 07/22/17 05:08 White Blood Count 4.06 K/uL Red Blood Count 2.05 M/uL Hemoglobin 7.4 g/dL Hematocrit 24.9 % Mean Corpuscular Volume 121.5 fL Mean Corpuscular Hemoglobin 36.1 pg Mean Corpuscular Hemoglobin Concent 29.7 g/dl Platelet Count 150 K/uL Mean Platelet Volume 10.9 fL Neutrophils (%) (Auto) 61.1 % Lymphocytes (%) (Auto) 23.4 % Monocytes (%) (Auto) 10.1 % Eosinophils (%) (Auto) 4.2 % Basophils (%) (Auto) 0.7 % Neutrophils # (Auto) 2.48 K/uL Lymphocytes # (Auto) 0.95 K/uL Monocytes # (Auto) 0.41 K/uL Eosinophils # (Auto) 0.17 K/uL Basophils # (Auto) 0.03 K/uL RDW Standard Deviation 106.8 fL RDW Coefficient of Variation 24.2 % Immature Granulocyte % (Auto) 0.5 % Immature Granulocyte # (Auto) 0.02 K/uL Large Platelets 1+ Anisocytosis PRESENT Stomatocytes 1+ Prothrombin Time 10.5 SECONDS Prothromb Time International Ratio 1.0 Sodium Level 148 mmol/L Potassium Level 4.8 mmol/L Chloride Level 115 mmol/L Carbon Dioxide Level 32 mmol/L Anion Gap 1.0 mmol/L Blood Urea Nitrogen 25 mg/dl Creatinine 0.41 mg/dl Est Creatinine Clear Calc Drug Dose 196.6 ml/min Estimated GFR () 137.7 Estimated GFR (Non- 118.8 BUN/Creatinine Ratio 60.9 Random Glucose 117 mg/dl Calcium Level 8.1 mg/dl Magnesium Level 1.4 mg/dl Total Bilirubin 1.2 mg/dl Direct Bilirubin 1.0 mg/dl Aspartate Amino Transf (AST/SGOT) 62 U/L Alanine Aminotransferase (ALT/SGPT) 57 U/L Alkaline Phosphatase 305 U/L Total Protein 5.7 gm/dl Albumin 1.8 gm/dl Assessment and Plan 52 year old female with alcoholic liver cirrhosis, h/o C. Diff (September 2016), Asthma, HTN, Anxiety, Alcohol Abuse, Tobacco Abuse, Non-Bleeding Gastric Ulcer, Macrocytic Anemia, Severe Fatty Liver Disease, and S/P Cholecystectomy Admitted on June 27, 2017 because of abdominal pain, and with acute kidney injury, bloody diarrhea, hypertension and C. difficile colitis, was also found to have acute alcoholic hepatitis. During the hospital stay had acute respiratory failure secondary to sepsis from pneumonia and C. difficile colitis and was intubated for 1 week-prolonged due to ARDS. Extubated on 07/11. Had massive anasarca after ICU stay. septic shock 2nd to pneumonia and c. diff colitis septic shock resolved for quite some time now and stools much improved. IV flagyl from 06/27-07/17 and then was dc'd at recommendation of Dr. Wu. Has been on p.o. vancomycin 4 times daily since 06/30-will start tapering down to 3 times daily today 1 week, then twice daily 1 week, then once daily for 1 week, then stop Pneumonia, possibly due to marisol albicans or gram negative etiology/pleural effusions seen on KUB on 07/20 Completed copious amounts of IV antibiotics for gram neg etiology; now has completed a 10 day course of caspofungin remains on 2 L nasal cannula and has minimal respiratory symptoms cont Albumin with Lasix 40 mg IV once daily to start today Altered mental status/encephalopathy - improved, but still with slow speech and difficulty answering questions at times, encephalopathy waxes and wanes, although improved overall from previous. 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 Cont thiamine 200mg BID, MVI, and folic acid profound macrocytic anemia--> B12, folate levels normal, already on thiamine and folate daily severe c. diff colitis - recurrent - on slow vancomycin wean over 4 weeks, see above acute hypoxic respiratory failure 2nd to pneumonia/ARDS -stable, remains on 2 L , was on vent and successfully extubated; remains on O2 likely due to residual pulmonary edema, peural effusions secondary to hypoalbuminemia as above, continue albumin and Lasix as above acute alcoholic hepatitis - LFTs continue to be slowly normalizing; GI following. INR improved, albumin remains low at 1.5 chronic macrocytic anemia - possibly due in part from chronic GI blood loss, EtOH use. B12 and folate are normal. Iron studies satisfactory with Fe sat>20% . thrombocytopenia - likely due to toxic effects from etoh and also from liver disease - HIT ab negative. Platelets continue to improve each day and are now normal Hypernatremia, Anasarca Continue albumin and Lasix as above as needs diuresis In the same time will give free water to try, with fluid restriction severe protein calorie malnutrition -remains on tube feedings. Palliative care had extensive discussion with the patient and her family-they have decided that she will not have a PEG tube placed, if her NG tube is pulled out, falls out, or she chooses to have it out, it will not be replaced need feeding tube removed prior to discharge to the group home most likely DVT proph - SCDs; chemical means contraindicated due to thrombocytopenia abdominal pain, continue PPI bid profound deconditioning/weakness, Needs SNF placement when medically stable Dysphagia -continues to cough at times with swallowing, pureed diet w/ thin liquids recommended; NO STRAWS; aspiration precautions DNR poor prognosis , will need long-term care placement, left message for case management. Continued [facility] stay due to: inadequate po fluid intake, voiding difficulties, ambulation difficulties, home environment unsafe for pt Discharge planning: assisted facility
[2017-07-22] MEDS: PEPTAMEN 1.5 CAL 1000ML BAG NG PRN (19:52)
[2017-07-23] MEDS ORDERED: METHYLPREDNISOLONE IV 40 MG in SYRINGE 0 ML IV SCH (04:00)
[2017-07-23] MEDS: TUBE FEEDING WATER FLUSH NG SCH ×6 (04:04→13:59)
[2017-07-23 06:06] LABS: HEMATOCRIT 26.3 % (37-47); HEMOGLOBIN 7.5 g/dL (12.0-16.0); MEAN CELL VOLUME 122.3 fL (80-100); MEAN CORPUSCULAR HEMOGLOBIN 34.9 pg (25-34); MEAN CORPUSCULAR HGB CONC 28.5 g/dl (32-36); MEAN PLATELET VOLUME 11.1 fL (7.4-10.4); PLATELET COUNT 171 K/uL (130-400); RED CELL DISTRIBUTION WIDTH CV 23.5 % (11.5-14.5); RED CELL DISTRIBUTION WIDTH SD 104.6 fL (36.4-46.3); WHITE BLOOD COUNT 3.77 K/uL (4.8-10.8)
[2017-07-23] MEDS: VANCOMYCIN HCL 500 MG/10ML SOLN PO SCH ×3 (06:07→20:07)
[2017-07-23] MEDS: RASPBERRY SYRUP 5 ML UDP PO SCH ×3 (06:08→20:07)
[2017-07-23 06:38] LABS: CALCIUM 8.5 mg/dl (8.5-10.1); CREATININE 0.36 mg/dl (0.60-1.20); POTASSIUM 4.6 mmol/L (3.5-5.1)
[2017-07-23 06:41] LABS: PHOSPHORUS 4.5 mg/dl (2.5-4.9)
[2017-07-23 06:42] LABS: BASO % 0.5 %; BASO ABS # 0.02 K/uL (0-0.2); EOS ABS # 0.15 K/uL (0-0.5); IG# 0.02 K/uL (0.00-0.02); LYMPH % 23.3 %; LYMPH ABS # 0.88 K/uL (1.2-3.4); MONO % 11.7 %; MONO ABS # 0.44 K/uL (0.11-0.59); NEUT ABS # 2.26 K/uL (1.4-6.5)
[2017-07-23] MEDS: ALBUT/IPRATROP 3MG/0.5MG NEB 3 ML VIAL INH SCH ×2 (06:57→11:08)
[2017-07-23 06:58] VITALS: PULSE 78; O2SAT 100
[2017-07-23 08:16] VITALS: BP 95/65; PULSE 80; TEMP 36.6; O2SAT 100
[2017-07-23] MEDS: [UNRECOGNIZED DRUG - REMARK] SCH (08:26)
[2017-07-23] MEDS: CEROVITE ADV FORMULA TAB PO SCH (08:28)
[2017-07-23] MEDS: THIAMINE HCL 100 MG TAB PO SCH (08:28)
[2017-07-23] MEDS: LANSOPRAZOLE SOLUTAB 15 MG PO SCH (08:28)
[2017-07-23] MEDS: ALBUMIN 25% 50 ML with FUROSEMIDE INJ 40 MG IV SCH ×2 (08:30)
[2017-07-23 08:47] VITALS: BP 106/76; PULSE 81
[2017-07-23 11:09] VITALS: PULSE 78; O2SAT 100
--- NOTE | 2017-07-23 12:26 | Palliative Care Progress Note ---
Palliative Care Progress Note Date of Service Jul 23, 2017. Subjective Pt evaluation today including: conversation w/ patient, physical exam Pain: /10 PO Intake: poor - some sips of Gingerale - TF via CoreSafe intermittently, tolerating. Voiding: gil catheter in place Pt seen today. PT overly calm. Pt states she has slight pain in her abdomen. Pt not able to answer questions appropriately and has a flat affect. Pt needs to be evaluated by PT for possible inpatient rehabilitation, discussion held with Case Management about [facility] care facility placement. In discussion with Case Management, plans send authorization paperwork to SNF to determine where she can be accepted. Will reach out to patient mother and daughter to discuss post PT evaluation. Review of Systems Pt unable to participate in ROS aside from stating she has abdominal discomfort upon movement and that she wanted cold gingerale. Objective Vital Signs Date Time Temp Pulse Resp B/P (MAP) Pulse Ox O2 Delivery O2 Flow Rate FiO2 07/23/17 11:09 78 12 100 Nasal Cannula 0.5 07/23/17 09:01 Nasal Cannula 1.0 07/23/17 08:47 81 106/76 (86) 07/23/17 08:16 36.6 80 19 95/65 (75) 100 Nebulizer 07/23/17 06:58 78 12 100 Nasal Cannula 2.0 07/23/17 00:00 Nasal Cannula 2.0 07/22/17 20:00 Nasal Cannula 2.0 07/22/17 18:54 81 16 98 Nasal Cannula 2.0 07/22/17 16:00 Nasal Cannula 2.0 07/22/17 15:47 36.3 79 20 110/76 (87) 94 Nasal Cannula 2.0 07/22/17 15:26 75 16 98 Nasal Cannula 2.0 Physical Exam General Appearance: + pertinent finding (appears comfortable and calm) Respiratory/Chest: + pertinent finding (coarse lung sounds throughout) Cardiovascular: regular rate, rhythm Abdomen: normal bowel sounds, non tender, + pertinent finding (CoreSafe inserted - no tube feeds infusing at this time) Extremities: + pedal edema Skin: no rash Lymphatic: no adenopathy Laboratory Results Last 24 Hours Test 07/23/17 05:53 White Blood Count 3.77 K/uL Red Blood Count 2.15 M/uL Hemoglobin 7.5 g/dL Hematocrit 26.3 % Mean Corpuscular Volume 122.3 fL Mean Corpuscular Hemoglobin 34.9 pg Mean Corpuscular Hemoglobin Concent 28.5 g/dl Platelet Count 171 K/uL Mean Platelet Volume 11.1 fL Neutrophils (%) (Auto) 60.0 % Lymphocytes (%) (Auto) 23.3 % Monocytes (%) (Auto) 11.7 % Eosinophils (%) (Auto) 4.0 % Basophils (%) (Auto) 0.5 % Neutrophils # (Auto) 2.26 K/uL Lymphocytes # (Auto) 0.88 K/uL Monocytes # (Auto) 0.44 K/uL Eosinophils # (Auto) 0.15 K/uL Basophils # (Auto) 0.02 K/uL RDW Standard Deviation 104.6 fL RDW Coefficient of Variation 23.5 % Immature Granulocyte % (Auto) 0.5 % Immature Granulocyte # (Auto) 0.02 K/uL Hypogranular Neutrophils 1+ Basophilic Stippling 1+ Anisocytosis PRESENT Macrocytosis PRESENT Stomatocytes 1+ Sodium Level 145 mmol/L Potassium Level 4.6 mmol/L Chloride Level 113 mmol/L Carbon Dioxide Level 29 mmol/L Anion Gap 3.0 mmol/L Blood Urea Nitrogen 20 mg/dl Creatinine 0.36 mg/dl Est Creatinine Clear Calc Drug Dose 223.9 ml/min Estimated GFR () 143.7 Estimated GFR (Non- 124.0 BUN/Creatinine Ratio 57.2 Random Glucose 116 mg/dl Calcium Level 8.5 mg/dl Phosphorus Level 4.5 mg/dl Magnesium Level 1.6 mg/dl Total Bilirubin 1.1 mg/dl Direct Bilirubin 1.0 mg/dl Aspartate Amino Transf (AST/SGOT) 61 U/L Alanine Aminotransferase (ALT/SGPT) 60 U/L Alkaline Phosphatase 302 U/L Total Protein 6.0 gm/dl Albumin 2.0 gm/dl Assessment and Plan Palliative Performance Scale: 30 % Continued [facility] stay due to: inadequate po fluid intake, voiding difficulties, ambulation difficulties, home environment unsafe for pt Discharge planning: [facility] facility
[2017-07-23 12:30] VITALS: O2SAT 65
[2017-07-23 12:34] VITALS: O2SAT 97
--- NOTE | 2017-07-23 14:03 | Progress Note ---
Subjective Date of Service: Jul 23, 2017. Subjective Pt evaluation today including: conversation w/ patient, physical exam, chart review, lab review, review of studies, conversation w/ [facility] consultant, review of inpatient medication list Patient is very lethargic, associated with some labored breathing respiratory rate up to 45 per minutes, the breath is shadowed, she is a week. to response to my questions her voice is so weak not able to be adherent, which is significant different from yesterday, no fever and chills Problem List Medical Problems: (1) Abdominal pain Status: Acute (2) Acute pancreatitis Status: Acute (3) Alcohol abuse Status: Acute (4) Alcohol intoxication Status: Acute (5) Anemia Status: Acute (6) Anemia Status: Acute (7) Biliary obstruction Status: Acute (8) C. difficile colitis Status: Acute (9) C. difficile diarrhea Status: Acute (10) Chest pain Status: Acute (11) Contusion of multiple sites Status: Acute (12) Dehydration Status: Acute (13) Dehydration Status: Acute (14) Encounter for smoking cessation counseling Status: Acute (15) Epigastric abdominal pain Status: Acute (16) Fall Status: Acute (17) Fall due to slipping on ice or snow Status: Acute (18) Fracture of left distal radius Status: Acute (19) Hypocalcemia Status: Acute (20) Hypomagnesemia Status: Acute (21) Hypomagnesemia Status: Acute (22) Hypotension Status: Acute (23) Lactic acidosis Status: Acute (24) Liver failure Status: Acute (25) Pancreatitis Status: Acute Review of Systems Constitutional: + problem reported (Not able to obtain because patient has mental status changes and deteriorating) Objective Vital Signs Date Time Temp Pulse Resp B/P (MAP) Pulse Ox O2 Delivery O2 Flow Rate FiO2 07/23/17 12:34 97 Nasal Cannula 2.0 07/23/17 12:30 65 Room Air 07/23/17 11:09 78 12 100 Nasal Cannula 0.5 07/23/17 09:01 Nasal Cannula 1.0 07/23/17 08:47 81 106/76 (86) 07/23/17 08:16 36.6 80 19 95/65 (75) 100 Nebulizer 07/23/17 06:58 78 12 100 Nasal Cannula 2.0 07/23/17 00:00 Nasal Cannula 2.0 07/22/17 20:00 Nasal Cannula 2.0 07/22/17 18:54 81 16 98 Nasal Cannula 2.0 07/22/17 16:00 Nasal Cannula 2.0 07/22/17 15:47 36.3 79 20 110/76 (87) 94 Nasal Cannula 2.0 07/22/17 15:26 75 16 98 Nasal Cannula 2.0 Physical Exam General Appearance: + obese, + pertinent finding (Frail, pale, shallow breathing,) Eyes: PERRL ENT: hearing grossly normal Neck: supple Respiratory/Chest: + decreased breath sounds, + crackles, + wheezing Cardiovascular: no gallop, + tachycardia Abdomen: + distended, + pertinent finding Extremities: + swelling (3-4+ edema) Neurologic/Psychiatric: + pertinent finding (No facial droop, obvious decreased cognition) Skin: + pertinent finding (Pale) Laboratory Results Last 24 Hours Test 07/23/17 05:53 White Blood Count 3.77 K/uL Red Blood Count 2.15 M/uL Hemoglobin 7.5 g/dL Hematocrit 26.3 % Mean Corpuscular Volume 122.3 fL Mean Corpuscular Hemoglobin 34.9 pg Mean Corpuscular Hemoglobin Concent 28.5 g/dl Platelet Count 171 K/uL Mean Platelet Volume 11.1 fL Neutrophils (%) (Auto) 60.0 % Lymphocytes (%) (Auto) 23.3 % Monocytes (%) (Auto) 11.7 % Eosinophils (%) (Auto) 4.0 % Basophils (%) (Auto) 0.5 % Neutrophils # (Auto) 2.26 K/uL Lymphocytes # (Auto) 0.88 K/uL Monocytes # (Auto) 0.44 K/uL Eosinophils # (Auto) 0.15 K/uL Basophils # (Auto) 0.02 K/uL RDW Standard Deviation 104.6 fL RDW Coefficient of Variation 23.5 % Immature Granulocyte % (Auto) 0.5 % Immature Granulocyte # (Auto) 0.02 K/uL Hypogranular Neutrophils 1+ Basophilic Stippling 1+ Anisocytosis PRESENT Macrocytosis PRESENT Stomatocytes 1+ Sodium Level 145 mmol/L Potassium Level 4.6 mmol/L Chloride Level 113 mmol/L Carbon Dioxide Level 29 mmol/L Anion Gap 3.0 mmol/L Blood Urea Nitrogen 20 mg/dl Creatinine 0.36 mg/dl Est Creatinine Clear Calc Drug Dose 223.9 ml/min Estimated GFR () 143.7 Estimated GFR (Non- 124.0 BUN/Creatinine Ratio 57.2 Random Glucose 116 mg/dl Calcium Level 8.5 mg/dl Phosphorus Level 4.5 mg/dl Magnesium Level 1.6 mg/dl Total Bilirubin 1.1 mg/dl Direct Bilirubin 1.0 mg/dl Aspartate Amino Transf (AST/SGOT) 61 U/L Alanine Aminotransferase (ALT/SGPT) 60 U/L Alkaline Phosphatase 302 U/L Total Protein 6.0 gm/dl Albumin 2.0 gm/dl Assessment and Plan 52 year old female with alcoholic liver cirrhosis, h/o C. Diff (September 2016), Asthma, HTN, Anxiety, Alcohol Abuse, Tobacco Abuse, Non-Bleeding Gastric Ulcer, Macrocytic Anemia, Severe Fatty Liver Disease, and S/P Cholecystectomy admitted on June 27, 2017 because of abdominal pain, and with acute kidney injury, bloody diarrhea, hypertension and C. difficile colitis, was also found to have acute alcoholic hepatitis. Today patient is deteriorating, palliative care service talk to patient's mom, decided comfort measures, and discontinue tube feeding During the hospital stay had acute respiratory failure secondary to sepsis from pneumonia and C. difficile colitis and was intubated for 1 week-prolonged due to ARDS. Extubated on 07/11. Had massive anasarca after ICU stay. septic shock 2nd to pneumonia and c. diff colitis septic shock IV flagyl from 06/27-07/17 and then was dc'd at recommendation of Dr. Wu. Has been on p.o. vancomycin 4 times daily since 06/30-will start tapering down to 3 times daily today 1 week, then twice daily 1 week, then once daily for 1 week, then stop We will continue Vanco p.o. for now which may benefit for the palliative care Pneumonia, possibly due to marisol albicans or gram negative etiology/pleural effusions seen on KUB on 07/20 Completed copious amounts of IV antibiotics for gram neg etiology; now has completed a 10 day course of caspofungin NC O2 2-3 L/min is to keep comfortable Altered mental status/encephalopathy profound macrocytic anemia severe c. diff colitis - recurrent acute hypoxic respiratory failure 2nd to pneumonia/ARDS Possible loss of 70s without an CO2, now has labored breathing, only NC O2 for comfort acute alcoholic hepatitis chronic macrocytic anemia Hypernatremia, Anasarca severe protein calorie malnutrition Palliative care had extensive discussion with the patient and her family As I mentioned again it was discussed with patient's mom today, desire comfort measures only, normal blood testing, stop all unnecessary medication for comfort measures profound deconditioning/weakness, will likely is active time poor prognosis Continued [facility] stay due to: inadequate po fluid intake, voiding difficulties, ambulation difficulties, home environment unsafe for pt Discharge planning: senior living facility
[2017-07-23] MEDS ORDERED: NURSING VERBAL MED ORDER ONE (14:45)
[2017-07-23] MEDS ORDERED: MoRPHine SULFATE 5 MG/0.25 ML UDP PO PRN (15:15)
[2017-07-24] MEDS: VANCOMYCIN HCL 500 MG/10ML SOLN PO SCH ×3 (06:00→19:31)
[2017-07-24] MEDS: RASPBERRY SYRUP 5 ML UDP PO SCH ×3 (06:00→19:31)
[2017-07-24] MEDS: ATROPINE SULFATE 1% OP SOLN 2 ML BTL SL PRN (07:57)
--- NOTE | 2017-07-24 08:32 | Progress Note ---
Subjective Date of Service: Jul 24, 2017. Subjective Pt is awake and alert and does make eye contact, does not follow commands or exhibits purposeful responses, I have been utilizing palliative care to interface with the patients mother and they are keeping me in the loop regarding transfer to snf on hospice care Problem List Medical Problems: (1) Abdominal pain Status: Acute (2) Acute pancreatitis Status: Acute (3) Alcohol abuse Status: Acute (4) Alcohol intoxication Status: Acute (5) Anemia Status: Acute (6) Anemia Status: Acute (7) Biliary obstruction Status: Acute (8) C. difficile colitis Status: Acute (9) C. difficile diarrhea Status: Acute (10) Chest pain Status: Acute (11) Contusion of multiple sites Status: Acute (12) Dehydration Status: Acute (13) Dehydration Status: Acute (14) Encounter for smoking cessation counseling Status: Acute (15) Epigastric abdominal pain Status: Acute (16) Fall Status: Acute (17) Fall due to slipping on ice or snow Status: Acute (18) Fracture of left distal radius Status: Acute (19) Hypocalcemia Status: Acute (20) Hypomagnesemia Status: Acute (21) Hypomagnesemia Status: Acute (22) Hypotension Status: Acute (23) Lactic acidosis Status: Acute (24) Liver failure Status: Acute (25) Pancreatitis Status: Acute Review of Systems Constitutional: + weakness, + fatigue, + problem reported (pt is not interating verbally), No fever, No chills Respiratory: No cough Objective Vital Signs Date Time Temp Pulse Resp B/P (MAP) Pulse Ox O2 Delivery O2 Flow Rate FiO2 07/23/17 23:50 Nasal Cannula 2.0 07/23/17 16:00 Nasal Cannula 2.0 07/23/17 12:34 97 Nasal Cannula 2.0 07/23/17 12:30 65 Room Air 07/23/17 11:09 78 12 100 Nasal Cannula 0.5 07/23/17 09:01 Nasal Cannula 1.0 07/23/17 08:47 81 106/76 (86) Physical Exam General Appearance: WD/WN, + mild distress Eyes: normal inspection, sclerae normal Neck: supple, no carotid bruits Respiratory/Chest: chest non-tender, no respiratory distress, + decreased breath sounds Cardiovascular: regular rate, rhythm, no murmur Abdomen: normal bowel sounds, non tender, soft Neurologic/Psychiatric: alert, oriented x 3 Assessment and Plan 52 year old female with alcoholic liver cirrhosis, h/o C. Diff (September 2016), Asthma, HTN, Anxiety, Alcohol Abuse, Tobacco Abuse, Non-Bleeding Gastric Ulcer, Macrocytic Anemia, Severe Fatty Liver Disease, and S/P Cholecystectomy admitted on June 27, 2017 because of abdominal pain, and with acute kidney injury, bloody diarrhea, hypertension and C. difficile colitis, was also found to have acute alcoholic hepatitis, currently decided on comfort measures During the hospital stay had acute respiratory failure secondary to sepsis from pneumonia and C. difficile colitis and was intubated for 1 week-prolonged due to ARDS. Extubated on 07/11. Had massive anasarca after ICU stay. septic shock 2nd to pneumonia and c. diff colitis IV flagyl from 06/27-07/17 and then was dc'd at recommendation of Dr. Wu. Has been on p.o. vancomycin 4 times daily since 06/30- continue Vanco p.o. for now which may benefit for the palliative care Pneumonia, possibly due to marisol albicans or gram negative etiology/pleural effusions seen on KUB on 07/20 Completed copious amounts of IV antibiotics for gram neg etiology; now has completed a 10 day course of caspofungin NC O2 2-3 L/min is to keep comfortable Altered mental status/encephalopathy, abnormal structural brain seen on imaging could be consistent with chronic alcohol abuse profound macrocytic anemia acute hypoxic respiratory failure 2nd to pneumonia/ARDS, only NC O2 for comfort acute alcoholic hepatitis severe protein calorie malnutrition with resultant anasarca Palliative care had extensive discussion with the patient and her family stop all unnecessary medication for comfort measures, this is per documentation from Dr Anguiano Continued [facility] stay due to: inadequate po fluid intake, voiding difficulties, ambulation difficulties, home environment unsafe for pt Discharge planning: retirement facility
--- NOTE | 2017-07-24 11:15 | Palliative Care Progress Note ---
Palliative Care Progress Note Date of Service Jul 24, 2017. Subjective Pt evaluation today including: conversation w/ patient, physical exam Voiding: gil catheter in place Pt was evaluated today. Patient has shallow breaths with diaphragmatic involvement. Pt was changed to comfort measures yesterday. Pt has not required any Roxanol use, but did have a dose of Atropin gtts for secretions. Pt will not qualify for GIP as she does not appear to have any uncontrolled symptoms. In discussion with patient mother yesterday, [facility] Dayami with Case Management confirmed that there is a bed available today. Familial support provided to family if needed. Review of Systems Pt opens eyes to voice, but did not participate in ROS. Objective Vital Signs Date Time Temp Pulse Resp B/P (MAP) Pulse Ox O2 Delivery O2 Flow Rate FiO2 07/23/17 23:50 Nasal Cannula 2.0 07/23/17 16:00 Nasal Cannula 2.0 07/23/17 12:34 97 Nasal Cannula 2.0 07/23/17 12:30 65 Room Air 07/23/17 11:09 78 12 100 Nasal Cannula 0.5 Physical Exam General Appearance: no apparent distress Neck: no adenopathy Respiratory/Chest: + accessory muscle use, + crackles, + pertinent finding ( shallow mouth breathing noted with niaphragmatic involvement) Cardiovascular: regular rate, rhythm, + pertinent finding (generalized anasarca ) Abdomen: non tender, + distended Extremities: + pertinent finding (PROM performed. Pt would not follow commands of squeezing hands or hands) Neurologic/Psychiatric: + pertinent finding (Pt with flat affect. Typically patient has decided when she wants to talk to providers and when she does not.) Skin: warm/dry, no rash Assessment and Plan Palliative Care Encounter Altered mental status Alcohol use disorder/cirrhosis Palliative Care Encounter - -Await placement for [facility] on Hospice Altered Mental Status - -Continue Roxanol as ordered for comfort PRN Alcohol use disorder/Cirrhosis - --Continue Atropine drops as ordered PRN Total time spent with patient 15 minutes with >75% of that time assessing and discussing SNF options for Hospice. Palliative Performance Scale: 20 % Continued [facility] stay due to: inadequate po fluid intake, voiding difficulties, ambulation difficulties, home environment unsafe for pt Discharge planning: [facility] facility
[2017-07-24] MEDS ORDERED: RXNS10 PO (14:20)
[2017-07-24] MEDS ORDERED: ONDA4TAB65 PO (14:20)
[2017-07-24] MEDS ORDERED: NF1094 PO (14:20)
--- NOTE | 2017-07-24 14:22 | Discharge Instructions ---
Discharge Instructions Date of Service Jul 24, 2017. Admission Reason for Admission: Gi Bleed,Shock Circulatory Discharge Discharge Diagnosis / Problem: discharge on hospice, c diff, sepsis Discharge Goals Goal(s): Diagnostic testing, Therapeutic intervention Activity Recommendations Activity Level: Assistance Required . Additional Information Patient informed of condition: Yes Advance Directives: Yes DNR: Yes Level of Care: Other (hospice) Communicable Disease: Yes Prognosis: Deteriorating Oxygen at (LPM): 2 liters adjust prn [place]acs Catheter: Yes Instructions / Follow-Up Instructions / Follow-Up 52 year old female with alcoholic liver cirrhosis, h/o C. Diff (September 2016), Asthma, HTN, Anxiety, Alcohol Abuse, Tobacco Abuse, Non-Bleeding Gastric Ulcer, Macrocytic Anemia, Severe Fatty Liver Disease, and S/P Cholecystectomy admitted on June 27, 2017 because of abdominal pain, and with acute kidney injury, bloody diarrhea, hypertension and C. difficile colitis, was also found to have acute alcoholic hepatitis, currently decided on comfort measures During the hospital stay had acute respiratory failure secondary to sepsis from pneumonia and C. difficile colitis and was intubated for 1 week-prolonged due to ARDS. Extubated on 07/11. Had massive anasarca after ICU stay. septic shock 2nd to pneumonia and c. diff colitis IV flagyl from 06/27-07/17 and then was dc'd at recommendation of Dr. Wu. Has been on p.o. vancomycin 4 times daily since 06/30- continue Vanco p.o. for now which may benefit for the palliative care, will have on one week from discharge and then continued at discretion of Hospice care provider Pneumonia, possibly due to marisol albicans or gram negative etiology/pleural effusions seen on KUB on 07/20 Completed copious amounts of IV antibiotics for gram neg etiology; now has completed a 10 day course of caspofungin NC O2 2-3 L/min is to keep comfortable Altered mental status/encephalopathy, abnormal structural brain seen on imaging could be consistent with chronic alcohol abuse profound macrocytic anemia acute hypoxic respiratory failure 2nd to pneumonia/ARDS, only NC O2 for comfort acute alcoholic hepatitis severe protein calorie malnutrition with resultant anasarca Palliative care had extensive discussion with the patient and her family stop all unnecessary medication for comfort measures, this is per documentation from Dr Anguiano Current Hospital Diet Patient's current hospital diet: Regular Diet Discharge Diet Recommended Diet: Regular Diet Pending Studies Studies pending at discharge: no Laboratory Results Hemoglobin A1c Test 07/02/17 03:53 Range/Units Estimated Average Glucose 91 mg/dl Hemoglobin A1c 4.8 4.5-5.6 % Lipid Panel Test 07/11/17 05:45 Range/Units Triglycerides Level 135 0-150 mg/dl Medical Emergencies . Who to Call and When: Medical Emergencies: If at any time you feel your situation is an emergency, please call 911 immediately. . Non-Emergent Contact Non-Emergency issues call your: Specialist (Hospice child day care provider) . . "Provider Documentation" section prepared by Nabil Mcnair. . Core Measure Problem Core Measures: None
[2017-07-24 14:24] VITALS: BP 106/76; PULSE 78; TEMP 36.6; O2SAT 97
[2017-07-25] MEDS: VANCOMYCIN HCL 500 MG/10ML SOLN PO SCH (05:32)
[2017-07-25] MEDS: RASPBERRY SYRUP 5 ML UDP PO SCH (05:32)
[2017-07-25] MEDS: ATROPINE SULFATE 1% OP SOLN 2 ML BTL SL PRN (07:53)
--- NOTE | 2017-07-25 18:14 | Discharge Summary ---
Discharge Summary Date of Service Jul 25, 2017. Discharge Summary Admission Date: Jun 27, 2017 at 08:57 Discharge Date: Jul 25, 2017 [facility] Principal Diagnosis: hospice care, c diff sepsis, Immunizations: Have You Had Influenza Vaccine: No History of Tetanus Vaccine?: Yes History of Pneumococcal: No History of Hepatitis B Vaccine: No Hepatitis Immunization Date: Feb 06, 1990 Medication Reconciliation New Medications: Ondansetron Hcl (Zofran) 4 Mg Tab 4 MG PO Q6H, #20 TAB Morphine Sulfate (Morphine Sulfate) 10 Mg/0.5 Ml Soln 2.5 MG PO Q2H PRN for PAIN AND RESPIRATORY DISTRESS, #100 ML Vancomycin HCl (Vancomycin HCl) 100 Mg/Ml Inj 500 MG PO Q8H, #28 DOSE Continued Medications: Ipratropium-Albuterol (Combivent Respimat) 1 Aer Aer 1 PUFF PO QID Discontinued Medications: Losartan Potassium (Losartan Potassium) 50 Mg Tab 50 MG PO DAILY Pantoprazole (Protonix) 40 Mg Tab 40 MG PO DAILY Discharge Exam Review of Systems: Constitutional: + problem reported (pt is obtunded and not albe to converse on day of discharge) Physical Exam: General Appearance: + severe distress, + obese Respiratory/Chest: + respiratory distress, + decreased breath sounds, + accessory muscle use Hospital Course 52 year old female with alcoholic liver cirrhosis, h/o C. Diff (September 2016), Asthma, HTN, Anxiety, Alcohol Abuse, Tobacco Abuse, Non-Bleeding Gastric Ulcer, Macrocytic Anemia, Severe Fatty Liver Disease, and S/P Cholecystectomy admitted on June 27, 2017 because of abdominal pain, and with acute kidney injury, bloody diarrhea, hypertension and C. difficile colitis, was also found to have acute alcoholic hepatitis, currently decided on comfort measures During the hospital stay had acute respiratory failure secondary to sepsis from pneumonia and C. difficile colitis and was intubated for 1 week-prolonged due to ARDS. Extubated on 07/11. Had massive anasarca after ICU stay. septic shock 2nd to pneumonia and c. diff colitis IV flagyl from 06/27-07/17 and then was dc'd at recommendation of Dr. Wu. Has been on p.o. vancomycin 4 times daily since 06/30- continue Vanco p.o. for now which may benefit for the palliative care, will have on one week from discharge and then continued at discretion of Hospice care provider Pneumonia, possibly due to marisol albicans or gram negative etiology/pleural effusions seen on KUB on 07/20 Completed copious amounts of IV antibiotics for gram neg etiology; now has completed a 10 day course of caspofungin NC O2 2-3 L/min is to keep comfortable Altered mental status/encephalopathy, abnormal structural brain seen on imaging could be consistent with chronic alcohol abuse profound macrocytic anemia hypoxic respiratory failure 2nd to pneumonia/ARDS, only NC O2 for comfort alcoholic hepatitis severe protein calorie malnutrition with resultant anasarca Palliative care had extensive discussion with the patient and her family stop all unnecessary medication for comfort measures, this is per documentation from Dr Anguiano. I spoke to Palliative care and will continue inpatient hospice care at [facility] Total Time Spent: Greater than 30 minutes This includes examination of the patient, discharge planning, medication reconciliation, and communication with other providers. Discharge Instructions Please refer to the electronic Patient Visit Report (Discharge Instructions) for additional information.
[2017-07-29] MEDS ORDERED: METHYLPREDNISOLONE IV 20 MG in SYRINGE 0 ML IV SCH (04:00)
[2017-07-31] MEDS ORDERED: METHYLPREDNISOLONE IV 10 MG in SYRINGE 0 ML IV SCH (04:00)
== END 2017-07-25 13:32 | disposition hospice, inpatient (51) | DRG 853 ==
LOC: EDBD 07:21 → C.EDB 07:24 → C.MSICU 08:57 → UNDOADMIN 08:57 → ENRESERV 09:07 → C.2T 06-28 15:47 → C.MSICU 06-28 15:47 → ENRESERV 07-15 13:52 → C.2T 07-15 15:22 → ENRESERV 07-17 12:26 → C.4E 07-17 13:58
PROVIDERS: ADMIT Internal Medicine; ATTEND Internal Medicine
PROC: 04HL33Z Insertion of Infusion Device into Left Femoral Artery, Percutaneous Approach (ICD-10-PCS; principal; 2017-07-01)
PROC: 0BH17EZ Insertion of Endotracheal Airway into Trachea, Via Natural or Artificial Opening (ICD-10-PCS; principal; 2017-07-01)
PROC: 02HV33Z Insertion of Infusion Device into Superior Vena Cava, Percutaneous Approach (ICD-10-PCS; 2017-07-09)
PROC: 02H Heart and Great Vessels, Insertion (ICD-10-PCS; 2017-07-09)
PROC: 0BCF8ZZ Extirpation of Matter from Right Lower Lung Lobe, Via Natural or Artificial Opening Endoscopic (ICD-10-PCS; 2017-07-10)
PROC: 0BCD8ZZ Extirpation of Matter from Right Middle Lung Lobe, Via Natural or Artificial Opening Endoscopic (ICD-10-PCS; 2017-07-10)
PROC: 0BBD4ZX Excision of Right Middle Lung Lobe, Percutaneous Endoscopic Approach, Diagnostic (ICD-10-PCS; 2017-07-10)
DX: A41.9 Sepsis, unspecified organism (principal); R57.1 Hypovolemic shock; J18.9 Pneumonia, unspecified organism; E43 Unspecified severe protein-calorie malnutrition; J96.01 Acute respiratory failure with hypoxia; G93.40 Encephalopathy, unspecified; A04.71 Enterocolitis due to Clostridium difficile, recurrent; K55.1 Chronic vascular disorders of intestine; R17 Unspecified jaundice; E87.2 Acidosis; K92.2 Gastrointestinal hemorrhage, unspecified; N17.9 Acute kidney failure, unspecified; Z51.5 Encounter for palliative care; D53.9 Nutritional anemia, unspecified; I95.9 Hypotension, unspecified; F41.9 Anxiety disorder, unspecified; R65.20 Severe sepsis without septic shock; J45.909 Unspecified asthma, uncomplicated; E03.9 Hypothyroidism, unspecified; F17.200 Nicotine dependence, unspecified, uncomplicated; F10.10 Alcohol abuse, uncomplicated; R91.1 Solitary pulmonary nodule; I10 Essential (primary) hypertension; E87.6 Hypokalemia; E83.39 Other disorders of phosphorus metabolism; Z88.2 Allergy status to sulfonamides; Z88.0 Allergy status to penicillin; Z90.710 Acquired absence of both cervix and uterus; Z91.018 Allergy to other foods; Z90.49 Acquired absence of other specified parts of digestive tract